=== PATIENT | male | born 1945 | race Caucasian/White ===

== ENCOUNTER 2018-08-28 05:19 | Day surgery (SDC) | payer MEDICARE, OTHER, SELFPAY ==
--- NOTE | 2018-08-28 | GASB_PTH ---
PATIENT: GABBY FLORES LOC: EN U#:[id number] AGE/SX: 73/M ROOM: RE08/28/[address]: Dr. Reyes Whittington MD : 1945 BED: DIS: 08/28/2018 SPEC #: [id number] RECD: 08/28/18 10:50 STATUS: MAILE MADDIE #: [id number] KAILEY: 08/28/18 00:[address]: Reyes Whittington DEPT: SURGICAL PATHOLOGY RECD BY: Regan Colon ENTERED: 08/28/18 10:50 SP TYPE: Gastric Bx OTHR DR: Dr. Kevin Sutton MD Tissues: A - Gastric mucous membrane B - Esophageal mucous membrane C - Esophageal mucous membrane Procedures: Surgery Specimen Level IV HEADER OPERATION: [place] [place] DIAGNOSIS: Reflux, screening TISSUE SUBMITTED: A - Antral biopsy for pathology, B - Distal esophageal biopsy, C - Mid esophageal biopsy MICROSCOPIC DIAGNOSIS A. Antral biopsy: Mild gastritis. B. Distal esophageal biopsy: A fragment of squamous epithelium with minimal chronic inflammation. C. Mid esophageal biopsy: A fragment of squamous epithelium with minimal congestion and chronic inflammation. SJ:jigar 08/29/18 COMMENT A. The results of immunohistochemistry for Helicobacter pylori will be reported separately ([id number]). Correlation with clinical, endoscopic findings and appropriate follow up are necessary. MICROSCOPIC DESCRIPTION Slides are reviewed. A. The specimen shows fragments of gastric mucosa with chronic inflammatory cell infiltrates in the lamina propria consisting of lymphocytes and plasma cells, consistent with mild chronic gastritis. GROSS DESCRIPTION A - Received in fixative is one container labeled with the patient's name and designated antral biopsy. The specimen consists of one irregular fragment of light sanz soft tissue that measures 0.3 x 0.2 x 0.1 cm. The specimen is totally submitted in one cassette. B - Received in fixative is one container labeled with the patient's name and designated distal esophageal biopsy. The specimen consists of one irregular fragment of light sanz soft tissue that measures 0.4 x 0.3 x 0.1 cm. The specimen is totally submitted in one cassette. C - Received in fixative is one container labeled with the patient's name and designated mid esophageal biopsy. The specimen consists of one irregular fragment of light sanz soft tissue that measures 0.4 x 0.2 x 0.1 cm. The specimen is totally submitted in one cassette. / SJ:rg 08/28/18 TC: CPT: 88300 x3
--- NOTE | 2018-08-28 | IMM_PTH ---
PATIENT: GABBY FLORES LOC: EN U#:[id number] AGE/SX: 73/M ROOM: RE08/28/[address]: Dr. Reyes Whittington MD : 1945 BED: DIS: 08/28/2018 SPEC #: [id number] RECD: 08/29/18 10:39 STATUS: MAILE REQ #: [id number] KAILEY: 08/28/18 00:[address]: Reyes Whittington DEPT: IMMUNOHISTOCHEMISTRY RECD BY: Chelsie Child ENTERED: 08/29/18 10:39 SP TYPE: IMMUNO OTHR DR: Dr. Kevin Sutton MD Tissues: A - Stomach, NOS Procedures: H Pylori (initial) PHYSICIAN & INSTITUTION [place] [id number] SPECIMEN INFORMATION: Tissue Source: A - Antral biopsy Clinical Info: Reflux, screening Specimen Number: [id number] CPT code: 82475 METHODOLOGY: Deparaffinized sections of prefer/formalin-fixed tissue or PAP/DQ stained slides are incubated with monoclonal/polyclonal antibodies/oligonucleotide probes. Localization is made via biotin free immunoperoxidase method. Appropriate controls are performed and reacted as expected. Results on target cell population are indicated in the following table: RESULTS: ANTIBODY / CLONE RESULT Block A H Pylori (polyclonal) negative These tests were developed and their performance characteristics determined by [facility]. They may not have been cleared or approved by the U.S. Food and Drug Administration. The FDA has determined that such clearance or approval is not necessary. INTERPRETATION: A. Antral biopsy: Negative for Helicobacter pylori organisms. SJ:jigar 08/29/18
[2018-08-28 05:56] VITALS: BP 137/79; PULSE 75; RESP 22; TEMP 36.9; O2SAT 100; BMI 23.3
--- NOTE | 2018-08-28 06:00 | PCM.HP.BLA ---
History and Physical Date of Admission: 08/28/18 HISTORY AND PHYSICAL ? Jd White 1945 ? REFERRING PHYSICIAN: ??Kevin Sutton MD ? CHIEF COMPLAINT: ??colon/EGD consult ? HPI: The patient is a 73 year old male due for screening colonoscopy, states last was in 2006. ?Jd notes no history of colon complaints. ?Specifically he denies any change in bowel habits, weight changes, blood in stools, black tarry stools or abdominal pain. ?He denies a family history of colon cancer. ?Patient notes a long-standing history of acid reflux for which he is maintained on a PPI. ?He notes he had EGD at the time of his last colonoscopy and would like to have this performed again since he still has symptomatic reflux issues. ? The patient is being seen by me today at the request of Dr. Sutton?for my opinion and advice regarding screening colonoscopy and EGD. ?Patient's past medical history is significant for coronary artery disease, idiopathic pulmonary fibrosis, chronic hypoxemic respiratory failure, chronic kidney disease, monoclonal gammopathy, osteoporosis. ?He has a LAD drug-eluting stent and is maintained on Plavix and aspirin, follows with Dr. Reddy. ?Most recent cardiology note from 07/08/18 is reviewed, per Dr. Reddy: ? There is no contraindication to colonoscopy from the cardiac point of?view, but?attention to respiratory status will be essential. ? Patient follows with Dr. Miguel in pulmonology and goes to [place] for pulmonary rehabilitation. ?He follows with Dr. Sutton for his chronic medical conditions. ?Patient wishes to have his endoscopy completed locally at [facility]. ?He denies any problems with sedation in the past. ? ? PAST MEDICAL HISTORY PAST MEDICAL HISTORY Diagnosis Date ? Back pain ? ? lower lumbar pain ? Concussion 02/2011 & 09/2011 ? Gammopathy, monoclonal ? ? small M spike in March 2015 by nephrology ? GERD (gastroesophageal reflux disease) ? ? HTN (hypertension) ? ? Hyperglycemia ? ? IPF (idiopathic pulmonary fibrosis) (HCC) ? ? diagnosed December 2013 ? Renal insufficiency ? ? ? PAST SURGICAL HISTORY PAST SURGICAL HISTORY Procedure Laterality Date ? INGUINAL HERNIA REPAIR HX Right ? ? LUNG BIOPSY HX ? 03/2014 ? PAST SURGICAL HISTORY OF ? ? cardiac stent x 1 ? ? CURRENT MEDICATIONS ? Current Outpatient Prescriptions: clopidogrel (PLAVIX) 75 mg tablet 75 mg. cholecalciferol (VITAMIN D3) 1,000 unit tab tablet VITAMIN D (CHOLECALCIFEROL) 1000 UNIT TABS pirfenidone (ESBRIET) 267 mg capsule ESBRIET 267 MG CAPS Cholecalciferol, Vitamin D3, (VITAMIN D-3) 2,000 unit cap Take one(1) tablet daily. Calcium Citrate-Vitamin D3 630-400 mg-unit Take 1 tablet by mouth once daily. levothyroxine (SYNTHROID) 25 mcg tablet Take 1 tablet by mouth once daily. Take on empty stomach. For thyroid. pantoprazole DR (PROTONIX) 40 mg tablet Take 1 tablet by mouth once daily. pravastatin (PRAVACHOL) 20 mg tablet Take 1 tablet by mouth daily at bedtime. amLODIPine (NORVASC) 5 mg tablet Take 1 tablet by mouth once daily. aspirin, enteric coated (ECOTRIN LOW STRENGTH) 81 mg EC tablet Take 1 tablet by mouth once daily. pirfenidone (ESBRIET) 267 mg capsule Take three (3) capsules by mouth three (3) times daily. ? No current facility-administered medications for this visit. ? ALLERGIES: Patient has no known allergies. ? PERSONAL HISTORY: SOCIAL HISTORY Social History ??Marital status: Single ?Spouse name: ?Years of education: ?Number of children: 0 ? Social History Main Topics ??Smoking status: Never Smoker ?Smokeless tobacco: Never Used ?Alcohol use: Yes ?6.0 - 16.5 oz/week ?Cans of Beer (12oz): 2, Mixed Drinks: 2 - 3 per week ?Comment: ocas ??Drug use: No ?Sexual activity: No ? FAMILY HISTORY: FAMILY HISTORY FAMILY HISTORY Problem Relation Age of Onset ? Diabetes Mother ? ? Hypertension Mother ? ? Heart Mother ?heart failure ? other (pulmonary fibrosis) Mother ?sister as well ? Hypertension Father ? ? Seizures Father ? ? COPD Father ? ? other (pulmonary fibosis) Sister ?lung disease,lung transplant ? Heart Brother ?[place], s/p stent ? other (Lung Disease) Brother ? ? REVIEW OF SYMPTOMS: ??The review of systems data was entered by the nurse and reviewed by me ? Nursing Notes: Elham Cervantes LPN ?07/14/2018 11:08 AM ?Signed REVIEW OF SYSTEMS: ?General:???The patient denies fatigue, denies weight loss, denies weight gain, denies feeling hot, and denies feelings of cold. ?Eyes: ?The patient denies glaucoma, denies eye injury/surgery, wears glasses or contacts. ?Ear/Nose/Throat: ?The patient denies allergies, denies hayfever, denies ear infections, and denies bloody noses. ?Cardiovascular: ?The patient denies chest pain, denies heart disease, NOTES high blood pressure,NOTES cardiac stent, denies prior heart attack, denies irregular heart beat, NOTES high cholesterol, ?denies poor circulation, denies heart failure, other cardiac issues, denies claudication, denies cold feet, denies peripheral arterial stent. ?Respiratory: ?The patient denies tuberculosis, denies pneumonia, denies frequent cough, denies pulmonary embolism, NOTES shortness of breath, and denies coughing up blood. ?Gastrointestinal: ?The patient denies difficulty swallowing, NOTES acid reflux, denies ulcers, denies vomiting, denies jaundice/hepatitis, denies gallbladder problems, denies black or tarry stools, denies hemorrhoids, denies bleeding from rectum, denies diverticulitis, denies constipation, denies diarrhea, denies loss of stool control, and denies hernias. ?Kidney/Bladder: ?The patient denies kidney stones, denies urine infections, and denies bloody urine. ?Skin: ?The patient denies a history of skin cancer, denies bleeding/changing moles, and denies a history of skin rash. ?Neurologic: ?The patient denies a history of epilepsy/convulsions, denies headaches, denies head/spinal injuries, and denies stroke/TIA. ?Psychiatric: ?The patient denies psychiatric medications, denies depression, and denies voices, denies substance abuse. ?Endocrine: ?The patient NOTES thyroid disorders, denies diabetes, and denies hormonal problems. ?Hematologic: ?The patient denies a history of bruising, denies bleeding, and denies anemia, denies blood clots. ?Infections: ?The patient NOTES a history of measles and mumps, denies rheumatic fever, and denies sexually transmitted diseases. ?Musculoskeletal: ?The patient denies back pain/injury, NOTES back problems, NOTES sciatica, denies knee/foot trouble, denies arthritis, or denies gout. ? ? When was patient's last Mammogram screening? N/A ? ?Last Colonoscopy: ?2006 ? Elham Cervantes LPN? I have confirmed and edited as necessary, the PFSH and ROS obtained by others. ? ? PHYSICAL EXAMINATION: ? General: ?The patient is 73 year old male, well nourished, well hydrated in no acute distress. ?The patient is oriented to time, place, and person. ? VITALS: Blood pressure 134/68, pulse 84, weight 80.7 kg (178 lb).?Body mass index is 23.97 kg/m?.? ? HEENT: ?Normal cephalic, ataumatic, pupils are equally round, sclera are anicteric, mucous membranes are moist, oropharynx is clear. ?Neck has no masses, asymmetry or lymphadenopathy. ? Respiratory: ?Clear to auscultation and percussion. ?Normal respiratory excursion and pattern. ? Cardiac: ?Examination is regular rate and rhythm. ?Normal S1/S2. ?+ANGELITA ? Abdominal exam: ?Soft, nontender, ?with no palpable masses. ?No hepatosplenomegaly. ?No palpable hernias. ? Rectal exam: exam deferred ? Extremities: ?no clubbing, cyanosis or edema. ?No adenopathy. ? Other: ? LABORATORY VALUES: As Noted ? RADIOLOGIC STUDIES: ?As Noted ? Assessment ? IMPRESSION: encounter for screening colonoscopy. ?Acid reflux-would plan for EGD in addition to colonoscopy. ?Idiopathic pulmonary fibrosis, on supplemental oxygen-will message Dr. Miguel to ensure no pulmonary concerns for elective endoscopy ? PLAN: ?Pending pulmonology clearance, would plan for EGD and colonoscopy to be performed under Monitored Anesthetic Care in hospital setting. ?We discussed the risks and benefits of the planned endoscopy. ?I have informed the patient that complications can occur including failure to complete the endoscopy and perforation. ?The patient had the opportunity to ask questions concerning the planned endoscopy. ?My staff has also explained the procedure to the patient in understandable terms and has given the patient printed material concerning the procedure. ?The patient freely consents to surgery. ? I plan to use golytely bowel preparation for endoscopy. ?Reviewed importance of good hydration before, during and after bowel preparation. Consider fluid bolus day of endoscopy due to history of elevated creatinine-will defer to Dr. Whittington ? Patient instructed to REMAIN ON his anticoagulation for the procedure ? The patient has medical comorbidities for which I plan to perform the procedure under monitored anesthetic care.??Patient is requesting to have procedure done locally at [facility] ? Diagnoses: (Z12.11) Encounter for screening for malignant neoplasm of colon ?(primary encounter diagnosis) (K21.9) Gastroesophageal reflux disease, esophagitis presence not specified (I25.10) Coronary artery disease involving muscogee coronary artery of muscogee heart without angina pectoris (J84.112) IPF (idiopathic pulmonary fibrosis) (HCC) (J96.11) Chronic hypoxemic respiratory failure (HCC) ? My findings have been communicated to Dr. Sutton?via shared medical record. ?This note will be forwarded to Dr. Kevin Sutton MD. ?? Return to Clinic: The patient is instructed to follow-up with me 1 week post operatively. ? Patient verbalized understanding of all above and agreed with the plan ? Digna Childs PA-C
[2018-08-28 07:11] VITALS: BP 137/79; BP 142/75; PULSE 63; RESP 16; TEMP 36.5; O2SAT 99
--- NOTE | 2018-08-28 07:14 | OP.ENDO_ITS ---
Patient Name: Jd White Procedure Date: 08/28/2018 6:25 AM Date of : 1945 Age: 73 Procedure: Upper GI endoscopy Indications: Follow-up of gastro-esophageal reflux disease Providers: Reyes Whittington MD Referring MD: Reyes Whittington MD Medicines: Monitored Anesthesia Care Patient Profile: This is a 73 year old male. Refer to note in patient chart for documentation of history and physical. Complications: No immediate complications. Procedure: Pre-Anesthesia Assessment: - Prior to the procedure, a History and Physical was performed, and patient medications and allergies were reviewed. The patient is competent. The risks and benefits of the procedure and the sedation options and risks were discussed with the patient. All questions were answered and informed consent was obtained. Patient identification and proposed procedure were verified by the physician, the nurse and the anesthesiologist in the procedure room. Mental Status Examination: alert and oriented. Airway Examination: normal oropharyngeal airway and neck mobility. Respiratory Examination: clear to auscultation. CV Examination: normal. Prophylactic Antibiotics: The patient does not require prophylactic antibiotics. Prior Anticoagulants: The patient has taken no previous anticoagulant or antiplatelet agents. ASA Grade Assessment: III - A patient with severe systemic disease. After reviewing the risks and benefits, the patient was deemed in satisfactory condition to undergo the procedure. The anesthesia plan was to use monitored anesthesia care (MAC). Immediately prior to administration of medications, the patient was re-assessed for adequacy to receive sedatives. The heart rate, respiratory rate, oxygen saturations, blood pressure, adequacy of pulmonary ventilation, and response to care were monitored throughout the procedure. The physical status of the patient was re-assessed after the procedure. After obtaining informed consent, the endoscope was passed under direct vision. Throughout the procedure, the patient's blood pressure, pulse, and oxygen saturations were monitored continuously. The gastroscope was introduced through the mouth, and advanced to the jejunum. The upper GI endoscopy was accomplished without difficulty. The patient tolerated the procedure well. Scope In: 6:38:00 AM Scope Out: 6:43:00 AM Total Procedure Duration Time 0 hours 5 minutes 0 seconds Findings: The examined jejunum was normal. The examined duodenum was normal. Localized mild inflammation characterized by erosions and erythema was found in the gastric antrum. Biopsies were taken with a cold forceps for histology. Biopsies were taken with a cold forceps for Helicobacter pylori testing using PyloriTek test. Biopsies were taken with a cold forceps for histology. The lower third of the esophagus was normal. Biopsies were taken with a cold forceps for histology. Mild inflammation characterized by erythema was found in the middle third of the esophagus. Biopsies were taken with a cold forceps for histology. Impression: - Normal examined jejunum. - Normal examined duodenum. - Gastritis. Biopsied. - Normal lower third of esophagus. Biopsied. - Esophageal mucosal changes were present, including erythema. Findings are suggestive of inflammation. Biopsied. Recommendation: - Return to physician grants and contracts assistant in 1 week. - Continue present medications. Procedure Code(s): --- Professional --- 08691, Esophagogastroduodenoscopy, flexible, transoral; with biopsy, single or multiple CPT copyright 2017 [employer]. All rights reserved. The codes documented in this report are preliminary and upon progressive care unit registered nurse review may be revised to meet current compliance requirements. Reyes Whittington MD 08/28/2018 7:13:52 AM This report has been signed electronically. Number of Addenda: 0 Note Initiated On: 08/28/2018 6:25 AM
--- NOTE | 2018-08-28 07:15 | OP.ENDO_ITS ---
Patient Name: Jd White Procedure Date: 08/28/2018 6:45 AM Date of : 1945 Age: 73 Procedure: Colonoscopy Indications: Screening for colorectal malignant neoplasm Providers: Reyes Whittington MD Referring MD: Reyes Whittington MD Medicines: Monitored Anesthesia Care Patient Profile: This is a 73 year old male. Refer to note in patient chart for documentation of history and physical. Last Colonoscopy: 10 years ago. Complications: No immediate complications. Procedure: Pre-Anesthesia Assessment: - Prior to the procedure, a History and Physical was performed, and patient medications and allergies were reviewed. The patient is competent. The risks and benefits of the procedure and the sedation options and risks were discussed with the patient. All questions were answered and informed consent was obtained. Patient identification and proposed procedure were verified by the physician, the nurse and the anesthesiologist in the procedure room. Mental Status Examination: alert and oriented. Airway Examination: normal oropharyngeal airway and neck mobility. Respiratory Examination: clear to auscultation. CV Examination: normal. Prophylactic Antibiotics: The patient does not require prophylactic antibiotics. Prior Anticoagulants: The patient has taken no previous anticoagulant or antiplatelet agents. ASA Grade Assessment: III - A patient with severe systemic disease. After reviewing the risks and benefits, the patient was deemed in satisfactory condition to undergo the procedure. The anesthesia plan was to use monitored anesthesia care (MAC). Immediately prior to administration of medications, the patient was re-assessed for adequacy to receive sedatives. The heart rate, respiratory rate, oxygen saturations, blood pressure, adequacy of pulmonary ventilation, and response to care were monitored throughout the procedure. The physical status of the patient was re-assessed after the procedure. After I obtained informed consent, the scope was passed under direct vision. Throughout the procedure, the patient's blood pressure, pulse, and oxygen saturations were monitored continuously. The pediatric colonoscope was introduced through the anus and advanced to the cecum, identified by the appendiceal orifice, ileocecal valve and palpation. Scope In: 6:46:41 AM Scope Withdrawal Time 0 hours 10 minutes 11 seconds Scope Out: 7:05:31 AM Total Procedure Duration Time 0 hours 18 minutes 50 seconds Findings: The perianal and digital rectal examinations were normal. The entire examined colon appeared normal on direct and retroflexion views. Impression: - The entire examined colon is normal on direct and retroflexion views. - No specimens collected. Recommendation: - Discharge patient to home. - Resume previous diet. - Continue present medications. - Repeat colonoscopy in 10 years for screening purposes. - Return to physician product safety technical assistant in 1 week. Procedure Code(s): --- Professional --- 90249, Colonoscopy, flexible; diagnostic, including collection of specimen(s) by brushing or washing, when performed (separate procedure) CPT copyright 2017 [employer]. All rights reserved. The codes documented in this report are preliminary and upon drywall taper review may be revised to meet current compliance requirements. Reyes Whittington MD 08/28/2018 7:15:31 AM This report has been signed electronically. Number of Addenda: 0 Note Initiated On: 08/28/2018 6:45 AM
[2018-08-28 07:16] VITALS: BP 136/78; BP 137/79; PULSE 59; RESP 16; O2SAT 99
[2018-08-28 07:21] VITALS: BP 131/74; BP 137/79; PULSE 66; RESP 16; O2SAT 100
[2018-08-28 07:26] VITALS: BP 137/79; BP 142/70; PULSE 62; RESP 16; TEMP 37.1; O2SAT 100
[2018-08-28 07:39] VITALS: BP 137/79
--- OUTSIDE RECORDS SUMMARY | 2018-10-23 06:00 | XMS RPT_ITS | Clinical Summary ---
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 Hyperglycemia 49842926 Active Nancy Solis Hyperglycemia (SNOMED 0/24 0/[address]) Essential 43620579 Active Nancy Solis Essential hypertension (SNOMED 0/24 0/[address]) GERD 619172010 Active Nancy Solis Gastroesophageal (SNOMED 0/24 0/[address]) Monoclonal 500336017 Active Nancy Solis Monoclonal gammopathy (SNOMED 0/24 0/[address]) (clinical) Medications Medication Instructions Start Stop Generic Name NDC Provider Date Date PLAVIX 75 MG Take 75 mg by / CLOPIDOGREL [id number] Nancy Solis TABS mouth once 24 BISULFATE [place] daily PLAVIX 75 MG Take 75 mg by CLOPIDOGREL [id number] Perry Nichole TABS mouth once 24 /24 BISULFATE [place] daily PANTOPRAZOLE One tablet by / PANTOPRAZOLE [id number] Nancy Solis SODIUM 40 MG mouth daily 24 SODIUM [place] TBEC AMLODIPINE One tablet by / AMLODIPINE [id number] Nancy Solis BESYLATE 5 MG mouth daily 24 BESYLATE [place] TABS PRAVASTATIN One tablet by / PRAVASTATIN SODIUM [id number] Nancy Solis SODIUM 20 MG mouth daily at 24 [place] TABS bedtime ASPIRIN 81 MG One tablet by / ASPIRIN [id number] Nancy M TABS mouth daily 24 [place] VITAMIN D One tablet by / CHOLECALCIFEROL [id number] Nancy Solis (CHOLECALCIFERO mouth daily 24 [place] L) 1000 UNIT TABS ESBRIET 267 MG Take 3 capsules / PIRFENIDONE [id number] Nancy Solis CAPS by mouth three 24 [place] times daily Medications Administered No information available. Allergies, Adverse Reactions, Alerts Observed No Known Drug Allergies at Results Date Name Value Unit Range Flag Description Office Visit: Update H&P Colonoscopy/ EGD MEDS REVIEW Done Documentation of current medications (procedure) [place] No Fall risk assessment SMOK STATUS Never smoker Tobacco use [facility] Plan of Care Type Date Detail Appointment 11:00 AM Digna Cruz PA-C, [address] [facility], [address], [address], Appointment 10:00 AM Perry Sargent MD, [address] [facility], [place] [address], [place], [address], Pending order EGD; diagnostic Pending order Colonoscopy Pending order EGD; diagnostic Pending order Colonoscopy Procedures Code Procedure Name Date Entry Date CPT-06682 Colonoscopy CPT-03893 EGD; diagnostic Vital Signs Date Name Value Unit Description BMI (Body Mass Index) 23.11 kg/m2 Body Mass Index [Ratio] Body Temperature 97.7 [degF] temperature E&M Body Temperature 36.50 Darling temperature in centigrade E&M BP Diastolic 85 mm[Hg] blood pressure, diastolic - 8462-4 BP Systolic 143 mm[Hg] blood pressure, systolic - 8480-6 Heart Rate 67 /min pulse rate E&M - 8867-4 Height 74 [in_us] height E&M - 8302-2 Height 187.96 cm height in centimeters E&M Respiratory Rate 18 /min respiratory rate E&M - 9279-1 Weight Measured 180 [lb_av] weight E&M - 3141-9 Weight Measured 81.65 kg weight in kilograms E&M
--- OUTSIDE RECORDS SUMMARY | 2018-10-23 06:00 | XMS RPT_ITS | Clinical Summary ---
:[address] 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 Hyperglycemia 07680439 Active Nancy Solis Hyperglycemia (SNOMED 0/24 0/[address]) Essential 31160165 Active Nancy Solis Essential hypertension (SNOMED 0/24 0/[address]) GERD 213394427 Active Nancy Solis Gastroesophageal (SNOMED 0/24 0/[address]) Monoclonal 482864579 Active Nancy Solis Monoclonal gammopathy (SNOMED 0/24 0/[address]) (clinical) Medications Medication Instructions Start Stop Generic Name NDC Provider Date Date PLAVIX 75 MG Take 75 mg by / CLOPIDOGREL [id number] Nancy Solis TABS mouth once 24 BISULFATE [place] daily PLAVIX 75 MG Take 75 mg by CLOPIDOGREL [id number] Perry Nichole TABS mouth once 24 /24 BISULFATE [place] daily PANTOPRAZOLE One tablet by / PANTOPRAZOLE 50632962106 Nancy Solis SODIUM 40 MG mouth daily 24 SODIUM [place] TBEC AMLODIPINE One tablet by / AMLODIPINE 64209868303 Nancy Solis BESYLATE 5 MG mouth daily 24 BESYLATE [place] TABS PRAVASTATIN One tablet by PRAVASTATIN SODIUM 14682113457 Nancy Solis SODIUM 20 MG mouth daily at 24 [place] TABS bedtime ASPIRIN 81 MG One tablet by / ASPIRIN 28100363650 Nancy M TABS mouth daily 24 [place] VITAMIN D One tablet by / CHOLECALCIFEROL [id number] Nancy Solis (CHOLECALCIFERO mouth daily 24 [place] L) 1000 UNIT TABS ESBRIET 267 MG Take 3 capsules / PIRFENIDONE [id number] Nancy Solis CAPS by mouth three 24 [place] times daily Medications Administered No information available. Allergies, Adverse Reactions, Alerts Observed no known allergies at Results Date Name Value Unit Range Flag Description Office Visit: EGD/ c-scope MEDS REVIEW Done Documentation of current medications (procedure) [place] No Fall risk assessment SMOK STATUS Never smoker Tobacco use [facility] Plan of Care Type Date Detail Pending order EGD; diagnostic Pending order Colonoscopy Procedures Code Procedure Name Date Entry Date CPT-53790 Colonoscopy CPT-44522 EGD; diagnostic Vital Signs Date Name Value Unit Description BMI (Body Mass Index) 23.20 kg/m2 Body Mass Index [Ratio] Body Temperature 97.5 [degF] temperature E&M BP Diastolic 73 mm[Hg] blood pressure, diastolic - 8462-4 BP Systolic 161 mm[Hg] blood pressure, systolic - 8480-6 Heart Rate 71 /min pulse rate E&M - 8867-4 Height 74 [in_us] height E&M - 8302-2 Respiratory Rate 22 /min respiratory rate E&M - 9279-1 Weight Measured 180.7 [lb_av] weight E&M - 3141-9
--- OUTSIDE RECORDS SUMMARY | 2018-10-23 06:00 | XMS RPT_ITS | Clinical Summary ---
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 Hyperglycemia 39274904 Active Nancy Solis Hyperglycemia (SNOMED 0/24 0/[address]) Essential 21722739 Active Nancy Solis Essential hypertension (SNOMED 0/24 0/[address]) GERD 413167122 Active Nancy Solis Gastroesophageal (SNOMED 0/24 0/[address]) Monoclonal 183250776 Active Nancy Solis Monoclonal gammopathy (SNOMED 0/24 0/[address]) (clinical) Medications Medication Instructions Start Stop Generic Name ND Provider Date Date PANTOPRAZOLE One tablet by / PANTOPRAZOLE [id number] Nancy Solis SODIUM 40 MG mouth daily 24 SODIUM [place] TBEC AMLODIPINE One tablet by / AMLODIPINE 67725579939 Nancy Solis BESYLATE 5 MG mouth daily 24 BESYLATE [place] TABS PLAVIX 75 MG Take 75 mg by / CLOPIDOGREL 28037117058 Nancy Solis TABS mouth once 24 BISULFATE [place] daily PRAVASTATIN One tablet by / PRAVASTATIN SODIUM 11162194859 Nancy Solis SODIUM 20 MG mouth daily at 24 [place] TABS bedtime ASPIRIN 81 MG One tablet by / ASPIRIN 92623005558 Nancy Solis TABS mouth daily 24 [place] VITAMIN D One tablet by / CHOLECALCIFEROL 09883967246 Nancy Solis (CHOLECALCIFERO mouth daily 24 [place] L) 1000 UNIT TABS ESBRIET 267 MG Take 3 capsules / PIRFENIDONE 09888741109 Nancy Solis CAPS by mouth three 24 [place] times daily Medications Administered No information available. Allergies, Adverse Reactions, Alerts No information available. Results No information available. Plan of Care Type Date Detail Appointment 03:10 PM Perry Sargent MD, [address] [place] [address], [address], [place], [address], Procedures No information available. Vital Signs No information available.
--- OUTSIDE RECORDS SUMMARY | 2018-10-23 06:00 | XMS RPT_ITS | Clinical Summary ---
:1945 Author Organization [facility] Address [address] [place] [address] Phone Care Team Providers Name Role Phone Perry Sargent MD Unavailable Conditions or Problems Problem Name Problem Onset Status Entry Provider Comment Standard Annotate Code Date Date Description Screening 474238773 Active Perry Nichole Screening for colon for (SNOMED 0/24 0/24 [place] malignant malignant CT) neoplasm of colon neoplasm Renal 15848808 Active Nancy Solis Renal failure insufficiency (SNOMED 0/24 0/[address]) Idiopathic 760194679 Active Nancy 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 Hyperglycemia 42423611 Active Nancy Solis Hyperglycemia (SNOMED 0/24 0/[address]) Essential 09856038 Active Nancy Solis Essential hypertension (SNOMED 0/24 0/[address]) GERD 170461996 Active Nancy Solis Gastroesophageal (SNOMED 0/24 0/[address]) Monoclonal 758137110 Active Nancy Solis Monoclonal gammopathy (SNOMED 0/24 0/[address]) (clinical) Medications Medication Instructions Start Stop Generic Name NDC Provider Date Date PLAVIX 75 MG Take 75 mg by / CLOPIDOGREL [id number] Nancy Solis TABS mouth once 24 BISULFATE [place] daily PLAVIX 75 MG Take 75 mg by CLOPIDOGREL 57210861805 Perry Nichole TABS mouth once 24 /24 BISULFATE [place] daily PANTOPRAZOLE One tablet by / PANTOPRAZOLE 14389663828 Nancy Solis SODIUM 40 MG mouth daily 24 SODIUM [place] TBEC AMLODIPINE One tablet by / AMLODIPINE 24312939455 Nancy Solis BESYLATE 5 MG mouth daily 24 BESYLATE [place] TABS PRAVASTATIN One tablet by / PRAVASTATIN SODIUM 52799944406 Nancy Solis SODIUM 20 MG mouth daily at 24 [place] TABS bedtime ASPIRIN 81 MG One tablet by / ASPIRIN 27269568365 Nancy M TABS mouth daily 24 [place] VITAMIN D One tablet by / CHOLECALCIFEROL 86271805970 Nancy Solis (CHOLECALCIFERO mouth daily 24 [place] L) 1000 UNIT TABS ESBRIET 267 MG Take 3 capsules / PIRFENIDONE 56890426267 Nancy Solis CAPS by mouth three 24 [place] times daily Medications Administered No information available. Allergies, Adverse Reactions, Alerts Observed no known allergies at Results Date Name Value Unit Range Flag Description Office Visit: EGD/ c-scope MEDS REVIEW Done Documentation of current medications (procedure) [place] No Fall risk assessment SMOK STATUS Never smoker Tobacco use [facility] Plan of Care Type Date Detail Appointment 03:10 PM Perry Sargent MD, [address] [place] [address], [address], [place], [address], Pending order EGD; diagnostic Pending order Colonoscopy Procedures Code Procedure Name Date Entry Date CPT-07589 Colonoscopy CPT-22270 EGD; diagnostic Vital Signs Date Name Value [...]
--- OUTSIDE RECORDS SUMMARY | 2018-10-23 06:00 | XMS RPT_ITS | Clinical Summary ---
:1945 Author Organization [facility] Address [address] [place] [address] Phone Care Team Providers Name Role Phone Digna Cruz PA-C Conditions or Problems Problem Name Problem Onset Status Entry Provider Comment Standard Annotate Code Date Date Description Screening [id number] Active Perry Nichole Screening for colon for (SNOMED 0/24 0/24 [place] malignant malignant CT) neoplasm of colon neoplasm Renal 10555362 Active Nancy Solis Renal failure insufficiency (SNOMED 0/24 0/[address]) Idiopathic 642106007 Active Nancy 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 Hyperglycemia 62442434 Active Nancy Solis Hyperglycemia (SNOMED 0/24 0/[address]) Essential 94854472 Active Nancy Solis Essential hypertension (SNOMED 0/24 0/[address]) GERD 992850199 Active Nancy Solis Gastroesophageal (SNOMED 0/24 0/[address]) Monoclonal 981187885 Active Nancy Solis Monoclonal gammopathy (SNOMED 0/24 0/[address]) (clinical) Medications Medication Instructions Start Stop Generic Name NDC Provider Date Date PLAVIX 75 MG Take 75 mg by / CLOPIDOGREL [id number] Nancy Solis TABS mouth once 24 BISULFATE [place] daily PLAVIX 75 MG Take 75 mg by CLOPIDOGREL [id number] Perry Nichole TABS mouth once 24 /24 BISULFATE [place] daily PANTOPRAZOLE One tablet by / PANTOPRAZOLE 47076374469 Nancy Solis SODIUM 40 MG mouth daily 24 SODIUM [place] TBEC AMLODIPINE One tablet by / AMLODIPINE 90098716227 Nancy Solis BESYLATE 5 MG mouth daily 24 BESYLATE [place] TABS PRAVASTATIN One tablet by / PRAVASTATIN SODIUM 54240276103 Nancy Solis SODIUM 20 MG mouth daily at 24 [place] TABS bedtime ASPIRIN 81 MG One tablet by / ASPIRIN 26485844974 Nancy M TABS mouth daily 24 [place] VITAMIN D One tablet by / CHOLECALCIFEROL 09900097556 Nancy Solis (CHOLECALCIFERO mouth daily 24 [place] L) 1000 UNIT TABS ESBRIET 267 MG Take 3 capsules / PIRFENIDONE 08436580426 Nancy Solis CAPS by mouth three 24 [place] times daily Medications Administered No information available. Allergies, Adverse Reactions, Alerts Observed No Known Drug Allergies at Results Date Name Value Unit Range Flag Description Office Visit: Update H&P Colonoscopy/ EGD MEDS REVIEW Done Documentation of current medications (procedure) [place] No Fall risk assessment SMOK STATUS Never smoker Tobacco smoking status [facility] Plan of Care Type Date Detail Appointment 10:00 AM Perry Sargent MD, [address] [place] [address], [address], [place], [address], Pending order EGD; diagnostic Pending order Colonoscopy Pending order EGD; diagnostic Pending order Colonoscopy Procedures Code Procedure Name Date Entry Date CPT-92685 Colonoscopy CPT-51614 EGD; diagnostic Vital Signs Date Name Value [...]
--- OUTSIDE RECORDS SUMMARY | 2018-10-23 06:01 | XMS RPT_ITS ---
:1945 Author Organization [facility] Care Team Providers Name Role Phone Isiah Whittington Attending Unavailable Isiah Whittington Referring Unavailable Kevin Mai Primary Care Unavailable ANTON ALEJANDRO Attending Unavailable ANTON ALEJANDRO Referring Unavailable NBA, KIRTI Referring Unavailable NBA, KIRTI Referring Unavailable NBA, KIRTI Referring Unavailable NBA, KIRTI Referring Unavailable NBA, KIRTI Referring Unavailable NBA, KIRTI Referring Unavailable NBA, KIRTI Referring Unavailable NBA, KIRTI Referring Unavailable NBA, KIRTI Referring Unavailable NBA, KIRTI Referring Unavailable NBA, KIRTI Referring Unavailable NBA, KIRTI Referring Unavailable NBA, KIRTI Referring Unavailable NBA, KIRTI Referring Unavailable BNA, KIRTI Referring Unavailable NBA, KIRTI Referring Unavailable NBA, KIRTI Referring Unavailable NBA, KIRTI Referring Unavailable BLAIR, ARCELIA ALBERTO Referring Unavailable BLAIR, ARCELIA ALBERTO Referring Unavailable BLAIR, ARCELIA ALBERTO Referring Unavailable BLAIR, ARCELIA ALBERTO Referring Unavailable BLAIR, ARCELIA ALBERTO Referring Unavailable BLAIR, ARCELIA ALBERTO Referring Unavailable BLAIR, ARCELIA ALBERTO Referring Unavailable BLAIR, ARCELIA ALBERTO Referring Unavailable BLAIR, ARCELIA ALBERTO Referring Unavailable NGUYEN FINE Referring Unavailable BLAIR, ARCELIA ALBERTO Referring Unavailable BLAIR, ARCELIA ALBERTO Referring Unavailable BLAIR, ARCELIA ALBERTO Referring Unavailable BLAIR, ARCELIA ALBERTO Referring Unavailable BLAIR, ARCELIA ALBERTO Referring Unavailable BLAIR, ARCELIA ALBERTO Referring Unavailable BLAIR, ARCELIA ALBERTO Referring Unavailable BLAIR, ARCELIA ALBERTO Referring Unavailable BLAIR, ARCELIA ALBERTO Referring Unavailable BLAIR, ARCELIA ALBERTO Referring Unavailable BLAIR, ARCELIA ALBERTO Referring Unavailable BLAIR, ARCELIA ALBERTO Referring Unavailable BLAIR, ARCELIA ALBERTO Referring Unavailable BLAIR, ARCELIA ALBEROT Referring Unavailable BLAIR, ARCELIA ALBERTO Referring Unavailable BLAIR, ARCELIA ALBERTO Referring Unavailable BLAIR, ARCELIA ALBERTO Referring Unavailable BLAIR, ARCELIA ALBERTO Referring Unavailable BLAIR, ARCELIA ALBERTO Referring Unavailable BLAIR, ARCELIA ALBERTO Referring Unavailable BLAIR, ARCELIA ALBERTO Referring Unavailable BLAIR, ARCELIA ALBERTO Referring Unavailable BLAIR, ARCELIA ALBERTO Referring Unavailable BLAIR, ARCELIA ALBERTO Referring Unavailable BLAIR, ARCELIA ALBERTO Referring Unavailable BLAIR, ARCELIA ALBERTO Referring Unavailable BLAIR, ARCELIA ALBERTO Referring Unavailable BLAIR, ARCELIA ALBERTO Referring Unavailable BLAIR, ARCELIA ALBERTO Referring Unavailable BLAIR, ARCELIA ALBERTO Referring Unavailable BLAIR, ARCELIA ALBERTO Referring Unavailable BLAIR, ARCELIA DOLLY Referring Unavailable BLAIR, ARCELIA ALBERTO Referring Unavailable BLAIR, ARCELIA ALBERTO Referring Unavailable BLAIR, ARCELIA DOLLY Referring Unavailable BLAIR, ARCELIA ALBERTO Referring Unavailable BLAIR, ARCELIA ALBERTO Referring Unavailable BLAIR, ARCELIA ALBERTO Referring Unavailable BLAIR, ARCELIA ALBERTO Referring Unavailable BLAIR, ARCELIA ALBERTO Referring Unavailable BLAIR, ARCELIA DOLLY Referring Unavailable BLAIR, ARCELIA DOLLY Referring Unavailable BLAIR, ARCELIA DOLLY Referring Unavailable BLAIR, ARCELIA DOLLY Referring Unavailable BLAIR, ARCELIA DOLLY Referring Unavailable BLAIR, ARCELIA DOLLY Referring Unavailable BLAIR, ARCELIA DOLLY Referring Unavailable BLAIR, ARCELIA DOLLY Referring Unavailable BLAIR, ARCELIA DOLLY Referring Unavailable BLAIR, ARCELIA DOLLY Referring Unavailable BLAIR, ARCELIA DOLLY Referring Unavailable BLAIR, ARCELIA DOLLY Referring Unavailable KEVIN MAI Attending Unavailable KEVIN MAI Referring Unavailable KEVIN MAI Attending Unavailable SINA WAGONER (PT) Attending Unavailable KEVIN MAI Referring Unavailable KEVIN MAI Referring Unavailable TONY HER (PA-C) Attending Unavailable TONY HER (PA-C) Referring Unavailable TONY HER (PA-C) Referring Unavailable ANTON ALEJANDRO Referring Unavailable NBA, KIRTI Referring Unavailable NBA, KIRTI Referring Unavailable NBA, KIRTI Referring Unavailable NBA, KIRTI Referring Unavailable NBA, KIRTI Attending Unavailable NBA, KIRTI Referring Unavailable FILE, KRYS Han Attending Unavailable LUIS MANUEL HER Referring Unavailable FILE, KRYS A Referring Unavailable MICHELLE HERNANDEZ (OFFICE WORKER) Attending Unavailable FILE, KRYS Han Referring Unavailable SERGEI, KEVIN Guzmán Referring Unavailable SERGEI, KEVIN J Referring Unavailable SERGEI, KEVIN J Referring Unavailable MASCI, LINO Han Attending Unavailable MASCI, LINO Han Referring Unavailable SERGEI, KEVIN J Referring Unavailable NBA, KIRTI Referring Unavailable NBA, KIRTI Referring Unavailable NBA, KIRTI Referring Unavailable NBA, KIRTI Referring Unavailable NBA, KIRTI Referring Unavailable NBA, KIRTI Attending Unavailable NBA, KIRTI Referring Unavailable MICHELLE HERNANDEZ (OFFICE WORKER) Referring Unavailable ANTON ALEJANDRO Attending Unavailable ANTON ALEJANDRO Referring Unavailable FILE, KRYS Han Attending Unavailable FILE, KRYS Han Referring Unavailable DIGNA STOKES (PA) Attending Unavailable SERGEI, KEVIN J Referring Unavailable NBA, KIRTI Referring Unavailable DIGNA STOKES (PA) Attending Unavailable NBA, KIRTI Referring Unavailable NBA, KIRTI Referring Unavailable NBA, KIRTI Attending Unavailable SERGEI, KEVIN J Referring Unavailable Irma BONILLA (PA-C) Referring Unavailable ANTON ALEJANDRO Attending Unavailable ANTON ALEJANDRO Referring Unavailable Kevin Mai MD Primary Care Unavailable ANTON ALEJANDRO Attending Unavailable ANTON ALEJANDRO Referring Unavailable Kevin Mai MD Primary Care Unavailable PROBLEMS PROBLEMS DATE TYPE CONDITION / CODE ATTENDING STATUS SOURCE 11/08/2017 Active Other nonspecific NA Active [facility] abnormal finding of Clinic Main lung field / [place] R91.8(ICD-10) Repository 05/27/2015 Active Idiopathic pulmonary NA Active [facility] fibrosis / Clinic Other J84.112(ICD-10) [place] Repository 11/14/2016 Active Hyperglycemia, NA Active [facility] unspecified / Clinic Main R73.9(ICD-10) [place] Repository 01/06/2018 Active Chronic kidney NA Active [facility] disease, stage 3 Clinic Main (moderate) / [place] N18.3(ICD-10) Repository 12/27/2017 Active Hypothyroidism, NA Active [facility] unspecified / Clinic Main E03.9(ICD-10) [place] Repository 12/27/2017 Active Disorder of kidney NA Active [facility] and ureter, Clinic Main unspecified / [place] N28.9(ICD-10) Repository 12/04/2017 Active Age-related NA Active [facility] osteoporosis without Clinic Main current pathological [place] fracture / Repository M81.0(ICD-10) 12/04/2017 Active Other intermediate card tender NA Active [facility] (current) drug Clinic Main therapy / [place] Z79.899(ICD-10) Repository 12/04/2017 Active Vitamin D NA Active [facility] deficiency, Clinic Main unspecified / [place] E55.9(ICD-10) Repository 11/08/2017 Active Unknown / KIRTI ARANGO Active [facility] UNK(Unknown) Clinic Main [place] Repository 11/07/2017 Active Atherosclerotic FLAVIA, 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 Repository 08/06/2017 Active Low back pain / NA Active [facility] M54.5(ICD-10) Clinic Main [place] Repository 10/28/2017 Active Wedge compression NA Active [facility] fracture of second Clinic Main lumbar vertebra, [place] initial encounter Repository for closed fracture / S32.020A(ICD-10) 10/28/2017 Active Wedge compression NA Active [facility] fracture of Clinic Main unspecified thoracic [place] vertebra, initial Repository encounter for closed fracture / S22.000A(ICD-10) 10/04/2017 Active Chronic obstructive NA Active [facility] pulmonary disease Clinic Main with acute lower [place] respiratory Repository infection / J44.0(ICD-10) 10/04/2017 Active Acute bronchitis, NA Active [facility] unspecified / Clinic Main J20.9(ICD-10) [place] Repository 06/16/2015 Active Monoclonal NA Active [facility] gammopathy / Clinic Main D47.2(ICD-10) [place] Repository 10/01/2017 Active Deforming NA Active [facility] dorsopathy, Clinic Main unspecified / [place] M43.9(ICD-10) Repository 10/01/2017 Active Radiculopathy, NA Active [facility] lumbar region / Clinic Main M54.16(ICD-10) [place] Repository PROCEDURES PROCEDURES No Procedure Records FoundRESULTS RESULTS PROGRESS Observed: 09/16/2018 Status: COMPLETED Source: [place] 10:39 AM [facility] REPOSITORY HNO ID: [id number] Author: Angel Chavarria (Ex Phys) Service: (none) Author Type: Dryer And Washer Mechanic Type: Progress Notes Filed: 09/16/2018 10:39 AM Note Text: Patient exercised in phase 3 cardiopulmonary rehabilitation today. Patients vitals WNL. HOSP Observed: 09/16/2018 Status: COMPLETED Source: [place] 12:00 AM [facility] REPOSITORY Patient Update ([facility]) EVAN FLORES ([id number]) 1945 M Date Time Provider Department 09/16/18 ANGEL CHAVARRIA (HARDIK PHYS) [facility] During your visit today, we recorded the following information about you: Hardik Arcos Ph 09/16/2018 10:39 AM Signed Patient exercised in phase 3 cardiopulmonary rehabilitation today. Patients vitals WNL. Allergies As of Date: 09/16/2018 (No Known Allergies) Date Reviewed: 09/05/2018 Reviewed by: Katie Ptunam Ma - Fully Assessed Prescriptions as of 09/16/2018 Sig: AMLODIPINE 5 MG TABLET Take 1 tablet by mouth once d* ASPIRIN 81 MG TABLET,DELAYED * Take 1 tablet by mouth once d* CALCIUM CITRATE-VITAMIN D 630* Take 1 tablet by mouth once d* CHOLECALCIFEROL (VITAMIN D3) * VITAMIN D (CHOLECALCIFEROL) 1* CHOLECALCIFEROL (VITAMIN D3) * Take one(1) tablet daily. CLOPIDOGREL 75 MG TABLET 75 mg. LEVOTHYROXINE 25 MCG TABLET Take 1 tablet by mouth once d* NINTEDANIB 150 MG CAPSULE Take 1 capsule by mouth every* PANTOPRAZOLE 40 MG TABLET,DEL* Take 1 tablet by mouth once d* PRAVASTATIN 20 MG TABLET Take 1 tablet by mouth daily * Problem List As Of Date 09/16/2018 Noted Resolved IPF (idiopathic pulmonary fibrosis) (HCC) [J84.*INVALID FOR* CKD (chronic kidney disease) [N18.9] INVALID FOR* Hoarse voice quality [R49.0] INVALID FOR* GERD (gastroesophageal reflux disease) [K21.9] INVALID FOR* HTN (hypertension) [I10] INVALID FOR*11/07/2016 Gammopathy, 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 BPH (benign prostatic hyperplasia) [N40.0] INVALID FOR* Family history of ischemic heart disease [Z82.4*INVALID FOR* Coronary artery disease involving [place] dougherty*INVALID FOR* More... 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] INVALID FOR* Acute midline low back pain [M54.5] INVALID FOR* Chronic hypoxemic respiratory failure (HCC) [J9*INVALID FOR* Pulmonary infiltrate [R91.8] INVALID FOR*05/23/2018 Abnormal weight loss [R63.4] INVALID FOR* Encounter Status:Closed by ANGEL CHAVARRIA on 09/16/18 PROGRESS Observed: 09/11/2018 Status: COMPLETED Source: [place] 10:27 AM [facility] REPOSITORY HNO ID: [id number] Author: Angel Han (Ex Phys) Deon Service: (none) Author Type: Dryer And Washer Mechanic Type: Progress Notes Filed: 09/11/2018 10:27 AM Note Text: Patient exercised in phase 3 cardiopulmonary rehabilitation today. Patients vitals WNL. HOSP Observed: 09/11/2018 Status: COMPLETED Source: [place] 12:00 AM [facility] REPOSITORY [facility] EVAN FLORES ([id number]) 1945 M Date Time Provider Department 09/11/18 FREIDAJULIA ANGEL Han (EX PHYS) [facility] During your visit today, we recorded the following information about you: Angel Han Hardik Chavarria 09/11/2018 10:27 AM Signed Patient exercised in phase 3 cardiopulmonary rehabilitation today. Patients vitals WNL. Allergies As of Date: 09/11/2018 (No Known Allergies) Date Reviewed: 09/05/2018 Reviewed by: Katei Putnam Ma - Fully Assessed Prescriptions as of 09/11/2018 Sig: AMLODIPINE 5 MG TABLET Take 1 tablet by mouth once d* ASPIRIN 81 MG TABLET,DELAYED * Take 1 tablet by mouth once d* CALCIUM CITRATE-VITAMIN D 630* Take 1 tablet by mouth once d* CHOLECALCIFEROL (VITAMIN D3) * VITAMIN D (CHOLECALCIFEROL) 1* CHOLECALCIFEROL (VITAMIN D3) * Take one(1) tablet daily. CLOPIDOGREL 75 MG TABLET 75 mg. LEVOTHYROXINE 25 MCG TABLET Take 1 tablet by mouth once d* NINTEDANIB 150 MG CAPSULE Take 1 capsule by mouth every* PANTOPRAZOLE 40 MG TABLET,DEL* Take 1 tablet by mouth once d* PRAVASTATIN 20 MG TABLET Take 1 tablet by mouth daily * Problem List As Of Date 09/11/2018 Noted Resolved IPF (idiopathic pulmonary fibrosis) (HCC) [J84.*INVALID FOR* CKD (chronic kidney disease) [N18.9] INVALID FOR* Hoarse voice quality [R49.0] INVALID FOR* GERD (gastroesophageal reflux disease) [K21.9] INVALID FOR* HTN (hypertension) [I10] INVALID FOR*11/07/2016 Gammopathy, 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 BPH (benign prostatic hyperplasia) [N40.0] INVALID FOR* Family history of ischemic heart disease [Z82.4*INVALID FOR* Coronary artery disease involving [place] dougherty*INVALID FOR* More... 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] INVALID FOR* Acute midline low back pain [M54.5] INVALID FOR* Chronic hypoxemic respiratory failure (HCC) [J9*INVALID FOR* Pulmonary infiltrate [R91.8] INVALID FOR*05/23/2018 Abnormal weight loss [R63.4] INVALID FOR* Encounter Status:Closed by ANGEL CHAVARRIA on 09/11/18 TSH Collected: 09/10/2018 Status: F Source: [place] 12:30 PM [facility] REPOSITORY TYPE CODE TESTS RESULT OUT OF RANGE REFERENCE UNITS LAB TSH 0.400-5.500 uU/mL TSH 4.320 Performed By: #### TSH #### [facility] [address] [place], [place] [address] PROGRESS Observed: 09/09/2018 Status: COMPLETED Source: [place] 10:39 AM [facility] OTHER [place] REPOSITORY HNO ID: [id number] Author: Angel Han (Ex Phys) Deon Service: (none) Author Type: Dryer And Washer Mechanic Type: Progress Notes Filed: 09/09/2018 10:43 AM Note Text: Patient exercised in phase 3 cardiopulmonary rehabilitation today. Patients vitals WNL. CNOV Observed: 09/09/2018 Status: COMPLETED Source: [place] 10:30 AM [facility] OTHER [place] REPOSITORY Office Visit ([facility]) EVAN FLORES ([id number]) 1945 M Date Time Provider Department 09/09/18 10:30 AM CARD PULM REHAB PHASE 3 [facility] During your visit today, we recorded the following information about you: Angel Chavarria, Ex Vasquez 09/09/2018 10:43 AM Signed Patient exercised in phase 3 cardiopulmonary rehabilitation today. Patients vitals WNL. Referring Provider: ARCELIA BLAIR [[id number]] Allergies As of Date: 09/09/2018 (No Known Allergies) Date Reviewed: 09/05/2018 Reviewed by: Katie Putnam Ma - Fully Assessed Reason for Visit: Cardiac Rehab [0501] Primary Visit Diagnosis:IPF (idiopathic pulmonary fibrosis) ([facility]) [J84.112] Prescriptions as of 09/09/2018 Sig: AMLODIPINE 5 MG TABLET Take 1 tablet by mouth once d* ASPIRIN 81 MG TABLET,DELAYED * Take 1 tablet by mouth once d* CALCIUM CITRATE-VITAMIN D 630* Take 1 tablet by mouth once d* CHOLECALCIFEROL (VITAMIN D3) * VITAMIN D (CHOLECALCIFEROL) 1* CHOLECALCIFEROL (VITAMIN D3) * Take one(1) tablet daily. CLOPIDOGREL 75 MG TABLET 75 mg. LEVOTHYROXINE 25 MCG TABLET Take 1 tablet by mouth once d* NINTEDANIB 150 MG CAPSULE Take 1 capsule by mouth every* PANTOPRAZOLE 40 MG TABLET,DEL* Take 1 tablet by mouth once d* PRAVASTATIN 20 MG TABLET Take 1 tablet by mouth daily * Problem List As Of Date 09/09/2018 Noted Resolved IPF (idiopathic pulmonary fibrosis) ([facility]) [J84.*INVALID FOR* CKD (chronic kidney disease) [N18.9] INVALID FOR* Hoarse voice quality [R49.0] INVALID FOR* GERD (gastroesophageal reflux disease) [K21.9] INVALID FOR* HTN (hypertension) [I10] INVALID FOR*11/07/2016 Gammopathy, 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 BPH (benign prostatic hyperplasia) [N40.0] INVALID FOR* Family history of ischemic heart disease [Z82.4*INVALID FOR* Coronary artery disease involving [place] dougherty*INVALID FOR* More... 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] INVALID FOR* Acute midline low back pain [M54.5] INVALID FOR* Chronic hypoxemic respiratory failure (HCC) [J9*INVALID FOR* Pulmonary infiltrate [R91.8] INVALID FOR*05/23/2018 Abnormal weight loss [R63.4] INVALID FOR* Encounter Status:Closed by ANGEL CHAVARRIA on 09/09/18 CNOV Observed: 09/05/2018 Status: COMPLETED Source: [place] 12:55 PM [facility] REPOSITORY Office Visit ([facility]) EVAN FLORES ([id number]) 1945 M Date Time Provider Department 09/05/18 12:55 PM KIRTI ARANGO During your visit today, we recorded the following information about you: Temperature Pulse Respiration Blood pressure 98.4 degrees 82/minute 14/minute 140/77 Weight Height 81.2 kg 1.836 m Kirti Arango MD 09/05/2018 1:37 PM Signed Consultation requested by Dr. Mai for an opinion regarding IPF. My final recommendations will be communicated back to the requesting physician by way of shared Medical record or letter to requesting physician via [place] mail. HPI: I had the pleasure of seeing Evan Flores in follow-up in the [facility] at [facility] on September 05, 2018. As you are aware, he?is a 73-year-old lifetime nonsmoker with a past medical history significant for MGUS, CKD and GERD who I have been following in the [facility] Clinic regarding biopsy-proven IPF. His biopsy was reviewed by [facility] Pathology and showed definitive UIP. He has been on Esbriet since 2014. ? He presents today for routine follow up. Feels like he's gotten a little worse since last appointment. Using oxygen more frequently. Increased cough as well. Continues to tolerate Esbriet well. More easily fatigued. 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 - GERD (gastroesophageal reflux disease) - HTN (hypertension) - Hyperglycemia - IPF (idiopathic pulmonary fibrosis) (HCC) diagnosed December 2013 - Renal insufficiency FAMILY HISTORY Problem Relation Age of Onset - Diabetes Mother - Hypertension Mother - Heart Mother heart failure - other (pulmonary fibrosis) Mother sister as well - Hypertension Father - Seizures Father - COPD Father - other (pulmonary fibosis) Sister lung disease,lung transplant - Heart Brother GA, s/p stent - other (Lung Disease) Brother Social History: Social History Substance Use Topics - Smoking status: Never Smoker - Smokeless tobacco: Never Used - Alcohol use 6.0 - 16.5 oz/week 2 Cans of Beer (12oz), 2 - 3 Mixed Drinks per week Comment: ocas Allergies:ALLERGIES No Known Allergies Current Medications: amLODIPine (NORVASC) 5 mg tablet Take 1 tablet by mouth once daily. clopidogrel (PLAVIX) 75 mg tablet 75 mg. cholecalciferol (VITAMIN D3) 1,000 unit tab tablet VITAMIN D (CHOLECALCIFEROL) 1000 UNIT TABS pirfenidone (ESBRIET) 267 mg capsule ESBRIET 267 MG CAPS Cholecalciferol, Vitamin D3, (VITAMIN D-3) 2,000 unit cap Take one(1) tablet daily. Calcium Citrate-Vitamin D3 630-400 mg-unit Take 1 tablet by mouth once daily. levothyroxine (SYNTHROID) 25 mcg tablet Take 1 tablet by mouth once daily. Take on empty stomach. For thyroid. pantoprazole DR (PROTONIX) 40 mg tablet Take 1 tablet by mouth once daily. pravastatin (PRAVACHOL) 20 mg tablet Take 1 tablet by mouth daily at bedtime. aspirin, enteric coated (ECOTRIN LOW STRENGTH) 81 mg EC tablet Take 1 tablet by mouth once daily. pirfenidone (ESBRIET) 267 mg capsule Take three (3) capsules by mouth three (3) times daily. PHYSICAL EXAM: Vital signs: BP 140/77 Pulse 82 Temp (Src) 98.4 (Temporal Artery) Resp 14 Ht 6' .3 (1.84m) Wt 179 lb (81.2kg) SpO2 98[4 liters]% BMI 24.09 kg/(m2). Gen: Well appearing, well nourished male in NAD, AANDOx3 CV: Regular rate and rhythm. Normal S1S2. No murmurs, gallops or rubs appreciated. Lungs: Good air movement. Bibasilar crackles. No wheezes or rhonchi. Normal work of breathing. No accessory muscle use. MS: Extremities are warm and well perfused. No clubbing, cyanosis or edema appreciated. Labs: Pertinent labs reviewed. Spirometry/PFTs (09/05/2018): Spirometry suggests mild restriction. Gas exchange is severely impaired. Compared to his prior spirometry, FVC has declined slightly but DLCO remains at baseline. Pred LLN ULN Pre % FVC 4.76 3.75 5.77 3.39 71 FEV 1 3.47 2.62 4.33 2.84 82 FEV1%F 72.78 63.10 82.46 83.60 115 FEV 2 3.90 2.86 4.94 3.05 78 FEV 3 4.38 3.36 5.40 3.16 72 FEV3%E 89.76 85.12 94.40 93.18 104 MEF 50 4.40 2.78 6.03 6.55 149 FIF 50 7.07 MMEF 2.54 0.82 4.27 3.56 140 FE%FIF 92.69 FEV6 3.33 PEF 8.81 6.45 11.17 10.22 116 FET 9.12 FETPEF 0.09 VBe%FV 5.89 VBEex 0.20 DLCOSB 26.42 18.41 34.42 8.68 33 DL/VA 3.65 2.45 4.85 2.01 55 VA 7.37 6.00 8.74 4.31 58 SHAYNA 4.76 3.75 5.77 3.04 64 BHT 9.34 IMAGING: No new thoracic imaging. Assessment/Plan: Evan Flores is a 73 year old male who I am following in the [facility] for IPF. Continues to slowly decline which I continue to feel is a natural history of his disease. He would like to try a nintedanib rather than Pirfenidone and we will make this change. He was reminded to take nintedanib twice daily with food and to be on the lookout for diarrhea. He has his own information about the side effects of the medications well. He will stop the Pirfenidone in the upcoming week to allow one week washout in between anti-fibrotic therapy. He was reminded to check his LFTs once monthly after beginning nintedanib until he follows up. (J84.112) IPF (idiopathic pulmonary fibrosis) (HCC) (primary encounter diagnosis) (J96.11) Chronic hypoxemic respiratory failure (HCC) Comment: As above Plan: SPIROMETRY BASELINE ONLY, LUNG DIFFUSION CAPACITY (DLCO) Discontinue Pirfenidone Start Nintedanib 150 mg by mouth twice a day with food. Antidiarrheal when necessary. LFTs monthly for the first 3-6 months. Continue supplemental oxygen, 4 L/m with exertion. I would like to see Evan Flores return to clinic in 3 months. Thank you for referring Evan Flores to the Inter[facility] Disease Clinic at [facility]. Should you have any questions or concerns do not hesitate to contact me. -MD Kirti Couch MD 09/05/2018 1:22 PM Addendum Start Ofev 150 mg (1 tab) TWICE daily with food Liver labs every month until follow up. Stop Esbriet. Referring Provider: KEVIN MAI [[id number]] Allergies As of Date: 09/05/2018 (No Known Allergies) Date Reviewed: 09/05/2018 Reviewed by: Katie Putnam Ma - Fully Assessed Reason for Visit: Recheck [92] Primary Visit Diagnosis:IPF (idiopathic pulmonary fibrosis) (HCC) [J84.112] Other Visit Diagnosis:Chronic hypoxemic respiratory failure (HCC) [J96.11] Order(s):SPIROMETRY BASELINE ONLY [[id number]] Order #: [id number] FUTURE LUNG DIFFUSION CAPACITY (DLCO) [[id number]] Order #: [id number] FUTURE nintedanib (OFEV) 150 mg capsuleTake 1 capsule by mouth every 12 hours.Disp: Rfl: Prescriptions as of 09/05/2018 Sig: AMLODIPINE 5 MG TABLET Take 1 tablet by mouth once d* ASPIRIN 81 MG TABLET,DELAYED * Take 1 tablet by mouth once d* CALCIUM CITRATE-VITAMIN D 630* Take 1 tablet by mouth once d* CHOLECALCIFEROL (VITAMIN D3) * VITAMIN D (CHOLECALCIFEROL) 1* CHOLECALCIFEROL (VITAMIN D3) * Take one(1) tablet daily. CLOPIDOGREL 75 MG TABLET 75 mg. LEVOTHYROXINE 25 MCG TABLET Take 1 tablet by mouth once d* NINTEDANIB 150 MG CAPSULE Take 1 capsule by mouth every* PANTOPRAZOLE 40 MG TABLET,DEL* Take 1 tablet by mouth once d* PRAVASTATIN 20 MG TABLET Take 1 tablet by mouth daily * Problem List As Of Date 09/05/2018 Noted Resolved IPF (idiopathic pulmonary fibrosis) (HCC) [J84.*INVALID FOR* CKD (chronic kidney disease) [N18.9] INVALID FOR* Hoarse voice quality [R49.0] INVALID FOR* GERD (gastroesophageal reflux disease) [K21.9] INVALID FOR* HTN (hypertension) [I10] INVALID FOR*11/07/2016 Gammopathy, 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 BPH (benign prostatic hyperplasia) [N40.0] INVALID FOR* Family history of ischemic heart disease [Z82.4*INVALID FOR* Coronary artery disease involving tyonek dougherty*INVALID FOR* More... 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 Stop Esbriet. Prescriptions ordered this encounter Disp Refills Start End NINTEDANIB 150 MG CAPSULE 09/05/2018 Class: Med Update Route: ORAL Sig: Take 1 capsule by mouth every 12 hours. Medications Discontinued During This Encounter pirfenidone (ESBRIET) 267 mg capsule 07/23/2017 09/05/2018 Class: Historical Med Sig: ESBRIET 267 MG CAPS Disc: Clinical Decision pirfenidone (ESBRIET) 267 mg capsule 09/05/2018 Class: Historical Med Sig: Take three (3) capsules by mouth three (3) times daily. Disc: Reason for discontinue is not on file. Disposition: Return in about 3 months (around 12/04/2018). Follow-up and Disposition History Recorded Letter Text Kirti Arango MD Staff Physician [facility] [place] [address] [place] [address] [address] [id number] September 16, 2018 Kevin Mai MD [facility] [place] [address] NAME:Evan Flores : [address] Mai, It was a pleasure to see your patient, Evan Flores, in the Pulmonary Department at the [facility], on September 05, 2018. Attached please find a copy of the visit summary. I appreciate having the opportunity to see your patient. If I can be of further assistance to you or if you have any questions regarding this report, please feel free to contact me. Sincerely, Kirti Arango MD Consultation requested by Dr. Mai for an opinion regarding IPF. My final recommendations will be communicated back to the requesting physician by way of shared Medical record or letter to requesting physician via US mail. HPI: I had the pleasure of seeing Evan Flores in follow-up in the [facility] at [facility] on September 05, 2018. As you are aware, he?is a 73-year-old lifetime nonsmoker with a past medical history significant for MGUS, CKD and GERD who I have been following in the [facility] regarding biopsy-proven IPF. His biopsy was reviewed by [facility] Pathology and showed definitive UIP. He has been on Esbriet since 2014. ? He presents today for routine follow up. Feels like he's gotten a little worse since last appointment. Using oxygen more frequently. Increased cough as well. Continues to tolerate Esbriet well. More easily fatigued. 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 - GERD (gastroesophageal reflux disease) - HTN (hypertension) - Hyperglycemia - IPF (idiopathic pulmonary fibrosis) (HCC) diagnosed December 2013 - Renal insufficiency FAMILY HISTORY Problem Relation Age of Onset - Diabetes Mother - Hypertension Mother - Heart Mother heart failure - other (pulmonary fibrosis) Mother sister as well - Hypertension Father - Seizures Father - COPD Father - other (pulmonary fibosis) Sister lung disease,lung transplant - Heart Brother [place], s/p stent - other (Lung Disease) Brother Social History: Social History Substance Use Topics - Smoking status: Never Smoker - Smokeless tobacco: Never Used - Alcohol use 6.0 - 16.5 oz/week 2 Cans of Beer (12oz), 2 - 3 Mixed Drinks per week Comment: ocas Allergies:ALLERGIES No Known Allergies Current Medications: amLODIPine (NORVASC) 5 mg tablet Take 1 tablet by mouth once daily. aspirin, enteric coated (ECOTRIN LOW STRENGTH) 81 mg EC tablet Take 1 tablet by mouth once daily. Calcium Citrate-Vitamin D3 630-400 mg-unit Take 1 tablet by mouth once daily. cholecalciferol (VITAMIN D3) 1,000 unit tab tablet VITAMIN D (CHOLECALCIFEROL) 1000 UNIT TABS Cholecalciferol, Vitamin D3, (VITAMIN D-3) 2,000 unit cap Take one(1) tablet daily. clopidogrel (PLAVIX) 75 mg tablet 75 mg. levothyroxine (SYNTHROID) 25 mcg tablet Take 1 tablet by mouth once daily. Take on empty stomach. For thyroid. nintedanib (OFEV) 150 mg capsule Take 1 capsule by mouth every [address] (PROTONIX) 40 mg tablet Take 1 tablet by mouth once daily. pravastatin (PRAVACHOL) 20 mg tablet Take 1 tablet by mouth daily at bedtime. PHYSICAL EXAM: Vital signs: BP 140/77 Pulse 82 Temp (Src) 98.4 (Temporal Artery) Resp 14 Ht 6' .3 (1.84m) Wt 179 lb (81.2kg) SpO2 98[4 liters]% BMI 24.09 kg/(m2). Gen: Well appearing, well nourished male in NAD, AANDOx3 CV: Regular rate and rhythm. Normal S1S2. No murmurs, gallops or rubs appreciated. Lungs: Good air movement. Bibasilar crackles. No wheezes or rhonchi. Normal work of breathing. No accessory muscle use. MS: Extremities are warm and well perfused. No clubbing, cyanosis or edema appreciated. Labs: Pertinent labs reviewed. Spirometry/PFTs (09/05/2018): Spirometry suggests mild restriction. Gas exchange is severely impaired. Compared to his prior spirometry, FVC has declined slightly but DLCO remains at baseline. Pred LLN ULN Pre % FVC 4.76 3.75 5.77 3.39 71 FEV 1 3.47 2.62 4.33 2.84 82 FEV1%F 72.78 63.10 82.46 83.60 115 FEV 2 3.90 2.86 4.94 3.05 78 FEV 3 4.38 3.36 5.40 3.16 72 FEV3%E 89.76 85.12 94.40 93.18 104 MEF 50 4.40 2.78 6.03 6.55 149 FIF 50 7.07 MMEF 2.54 0.82 4.27 3.56 140 FE%FIF 92.69 FEV6 3.33 PEF 8.81 6.45 11.17 10.22 116 FET 9.12 FETPEF 0.09 VBe%FV 5.89 VBEex 0.20 DLCOSB 26.42 18.41 34.42 8.68 33 DL/VA 3.65 2.45 4.85 2.01 55 VA 7.37 6.00 8.74 4.31 58 SHAYNA 4.76 3.75 5.77 3.04 64 BHT 9.34 IMAGING: No new thoracic imaging. Assessment/Plan: Evan Flores is a 73 year old male who I am following in the [facility] for IPF. Continues to slowly decline which I continue to feel is a natural history of his disease. He would like to try a nintedanib rather than Pirfenidone and we will make this change. He was reminded to take nintedanib twice daily with food and to be on the lookout for diarrhea. He has his own information about the side effects of the medications well. He will stop the Pirfenidone in the upcoming week to allow one week washout in between anti-fibrotic therapy. He was reminded to check his LFTs once monthly after beginning nintedanib until he follows up. (J84.112) IPF (idiopathic pulmonary fibrosis) ([facility]) (primary encounter diagnosis) (J96.11) Chronic hypoxemic respiratory failure ([facility]) Comment: As above Plan: SPIROMETRY BASELINE ONLY, LUNG DIFFUSION CAPACITY (DLCO) Discontinue Pirfenidone Start Nintedanib 150 mg by mouth twice a day with food. Antidiarrheal when necessary. LFTs monthly for the first 3-6 months. Continue supplemental oxygen, 4 L/m with exertion. I would like to see Evan Flores return to clinic in 3 months. Thank you for referring Evan Flores to the [facility] Clinic at the [facility]. Should you have any questions or concerns do not hesitate to contact me. -Kirti Arango MD Encounter Status:Closed by KIRTI ARANGO MD on 09/05/18 PROGRESS Observed: 09/05/2018 Status: COMPLETED Source: [place] 12:38 PM [facility] REPOSITORY O ID: [id number] Author: Kirti Arango Service: (none) Author Type: Physician Type: Progress Notes Filed: 09/05/2018 1:37 PM Note Text: Consultation requested by Dr. Mai for an opinion regarding IPF. My final recommendations will be communicated back to the requesting physician by way of shared Medical record or letter to requesting physician via [place] mail. HPI: I had the pleasure of seeing Evan Flores in follow-up in the [facility] at [facility] on September 05, 2018. As you are aware, he?is a 73-year-old lifetime nonsmoker with a past medical history significant for MGUS, CKD and GERD who I have been following in the [facility] Clinic regarding biopsy-proven IPF. His biopsy was reviewed by [facility] Pathology and showed definitive UIP. He has been on Esbriet since 2014. ? He presents today for routine follow up. Feels like he's gotten a little worse since last appointment. Using oxygen more frequently. Increased cough as well. Continues to tolerate Esbriet well. More easily fatigued. 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 - GERD (gastroesophageal reflux disease) - HTN (hypertension) - Hyperglycemia - IPF (idiopathic pulmonary fibrosis) (HCC) diagnosed December 2013 - Renal insufficiency FAMILY HISTORY Problem Relation Age of Onset - Diabetes Mother - Hypertension Mother - Heart Mother heart failure - other (pulmonary fibrosis) Mother sister as well - Hypertension Father - Seizures Father - COPD Father - other (pulmonary fibosis) Sister lung disease,lung transplant - Heart Brother [place], s/p stent - other (Lung Disease) Brother Social History: Social History Substance Use Topics - Smoking status: Never Smoker - Smokeless tobacco: Never Used - Alcohol use 6.0 - 16.5 oz/week 2 Cans of Beer (12oz), 2 - 3 Mixed Drinks per week Comment: ocas Allergies:ALLERGIES No Known Allergies Current Medications: amLODIPine (NORVASC) 5 mg tablet Take 1 tablet by mouth once daily. clopidogrel (PLAVIX) 75 mg tablet 75 mg. cholecalciferol (VITAMIN D3) 1,000 unit tab tablet VITAMIN D (CHOLECALCIFEROL) 1000 UNIT TABS pirfenidone (ESBRIET) 267 mg capsule ESBRIET 267 MG CAPS Cholecalciferol, Vitamin D3, (VITAMIN D-3) 2,000 unit cap Take one(1) tablet daily. Calcium Citrate-Vitamin D3 630-400 mg-unit Take 1 tablet by mouth once daily. levothyroxine (SYNTHROID) 25 mcg tablet Take 1 tablet by mouth once daily. Take on empty stomach. For thyroid. pantoprazole DR (PROTONIX) 40 mg tablet Take 1 tablet by mouth once daily. pravastatin (PRAVACHOL) 20 mg tablet Take 1 tablet by mouth daily at bedtime. aspirin, enteric coated (ECOTRIN LOW STRENGTH) 81 mg EC tablet Take 1 tablet by mouth once daily. pirfenidone (ESBRIET) 267 mg capsule Take three (3) capsules by mouth three (3) times daily. PHYSICAL EXAM: Vital signs: BP 140/77 Pulse 82 Temp (Src) 98.4 (Temporal Artery) Resp 14 Ht 6' .3 (1.84m) Wt 179 lb (81.2kg) SpO2 98[4 liters]% BMI 24.09 kg/(m2). Gen: Well appearing, well nourished male in NAD, AANDOx3 CV: Regular rate and rhythm. Normal S1S2. No murmurs, gallops or rubs appreciated. Lungs: Good air movement. Bibasilar crackles. No wheezes or rhonchi. Normal work of breathing. No accessory muscle use. MS: Extremities are warm and well perfused. No clubbing, cyanosis or edema appreciated. Labs: Pertinent labs reviewed. Spirometry/PFTs (09/05/2018): Spirometry suggests mild restriction. Gas exchange is severely impaired. Compared to his prior spirometry, FVC has declined slightly but DLCO remains at baseline. Pred LLN ULN Pre % FVC 4.76 3.75 5.77 3.39 71 FEV 1 3.47 2.62 4.33 2.84 82 FEV1%F 72.78 63.10 82.46 83.60 115 FEV 2 3.90 2.86 4.94 3.05 78 FEV 3 4.38 3.36 5.40 3.16 72 FEV3%E 89.76 85.12 94.40 93.18 104 MEF 50 4.40 2.78 6.03 6.55 149 FIF 50 7.07 MMEF 2.54 0.82 4.27 3.56 140 FE%FIF 92.69 FEV6 3.33 PEF 8.81 6.45 11.17 10.22 116 FET 9.12 FETPEF 0.09 VBe%FV 5.89 VBEex 0.20 DLCOSB 26.42 18.41 34.42 8.68 33 DL/VA 3.65 2.45 4.85 2.01 55 VA 7.37 6.00 8.74 4.31 58 SHAYNA 4.76 3.75 5.77 3.04 64 BHT 9.34 IMAGING: No new thoracic imaging. Assessment/Plan: Evan Flores is a 73 year old male who I am following in the [facility] for IPF. Continues to slowly decline which I continue to feel is a natural history of his disease. He would like to try a nintedanib rather than Pirfenidone and we will make this change. He was reminded to take nintedanib twice daily with food and to be on the lookout for diarrhea. He has his own information about the side effects of the medications well. He will stop the Pirfenidone in the upcoming week to allow one week washout in between anti-fibrotic therapy. He was reminded to check his LFTs once monthly after beginning nintedanib until he follows up. (J84.112) IPF (idiopathic pulmonary fibrosis) ([facility]) (primary encounter diagnosis) (J96.11) Chronic hypoxemic respiratory failure ([facility]) Comment: As above Plan: SPIROMETRY BASELINE ONLY, LUNG DIFFUSION CAPACITY (DLCO) Discontinue Pirfenidone Start Nintedanib 150 mg by mouth twice a day with food. Antidiarrheal when necessary. LFTs monthly for the first 3-6 months. Continue supplemental oxygen, 4 L/m with exertion. I would like to see Evan Flores return to clinic in 3 months. Thank you for referring Evan Flores to the [facility] Clinic at the [facility]. Should you have any questions or concerns do not hesitate to contact me. -Kirti Arango MD PROGRESS Observed: 09/04/2018 Status: COMPLETED Source: [place] 4:04 PM [facility] REPOSITORY HNO ID: [id number] Author: Digna Stokes ([place]) Service: (none) Author Type: Physician Environmental Services Project Manager Type: Progress Notes Filed: 09/04/2018 6:25 PM Note Text: FOLLOW UP VISIT - ENDOSCOPY NAME: Evan Flores [facility] NO.: [id number] DATE OF SERVICE: 09/04/2018 : 1945 REFERRING PHYSICIAN: Kevin Mai MD Evan is a patient I am following for screening colonoscopy and history of GERD. Dr. Whittington performed upper and lower endoscopy on 08/28/18. The patient was found to have a normal colon, gastritis and esophagitis. Pathology demonstrated: MICROSCOPIC DIAGNOSIS A. Antral biopsy: Mild gastritis. B. Distal esophageal biopsy: A fragment of squamous epithelium with minimal chronic inflammation. C. Mid esophageal biopsy: A fragment of squamous epithelium with minimal congestion and chronic inflammation. SJ:jigra 08/29/18 RESULTS: ANTIBODY / CLONE RESULT Block A H Pylori (polyclonal) negative These tests were developed and their performance characteristics determined by [facility]. They may not have been cleared or approved by the U.S. Food and Drug Administration. The FDA has determined that such clearance or approval is not necessary. INTERPRETATION: A. Antral biopsy: Negative for Helicobacter pylori organisms. SJ:rg 08/29/18 The patient notes no complaints since the procedure. VITALS: There were no vitals taken for this visit. On examination, the abdomen is benign. Assessment IMPRESSION: normal screening colonoscopy, GERD and gastritis PLAN: I have reviewed the operative findings and pathology report with the patient, and the patient had the opportunity to ask questions and have questions answered. -Continue PPI -Dietary and lifestyle modifications as discussed -Call if symptoms worsen or persist despite above measures Patient verbalized understanding of above and agreed with the plan Diagnoses: (Z12.11) Special screening for malignant neoplasm of colon (primary encounter diagnosis) (K21.0) GERD with esophagitis I spent 20 minutes in the visit, with more than 50% of the total [id number] time of the visit in counseling / coordination of care. Digna Stokes PA-C CNOV Observed: 09/04/2018 Status: COMPLETED Source: [place] 3:30 PM [facility] REPOSITORY Office Visit ([facility]) EVAN FLORES ([id number]) 1945 M Date Time Provider Department 09/04/18 3:30 PM DIGNA STOKES ([place]) During your visit today, we recorded the following information about you: Digna Stokes PA-C 09/04/2018 4:00 PM Addendum The following instructions are important for you related to your office visit today with the [facility]. INSTRUCTIONS FOLLOWING A NORMAL COLONOSCOPY I discussed with you the findings of your colonoscopy. Since there were no worrisome abnormalities, I recommend you undergo repeat endoscopic screening every 10 years. This is the current recommendation for colon cancer screening. If you note bleeding, change in bowel habits, or other suspicious colon related symptoms before that time, those symptoms should be evaluated as necessary. And INSTRUCTIONS FOR PEPTIC ULCER DISEASE/GASTRITIS /ESOPHAGITIS I discussed with you the findings of your upper endoscopy. Your upper endoscopy demonstrated signs of peptic ulcer disease or irritation, as well as irritation in the esophagus. This can be seen as a range of issues from actual ulcers in the stomach or duodenum (first part of the small bowel) or irritation ranging from redness to more significant irritation with erosions of the stomach or duodenum. These conditions are usually caused from a combination of too much acid production or too little protective mucus production in the stomach. Factors that increase acid production include smoking and stress. If you smoke, stopping smoking will often cure these issues without needing other medications. Factors that decrease the stomach's production of protective mucus include alcohol consumption, smoking, aspirin and other anti-inflammatory use. Over the counter medications including antiacids and acid reducing medications including H2 blockers (Zantac and the like) and proton pump inhibitors (prilosec, prevacid and the like) neutralize or prevent acid production. Prescription strength proton pump inhibitors (PPIs) may be necessary if your symptoms persist. Carafate may be added to PPI treatment in refractory cases. Avoiding smoking, alcohol and antiinflammatory medications are important in the successful treatment of peptic diseases. Avoid eating or drinking after 7 pm Elevate head of bed at night/prop up upper body with extra pillow(s) New or worsening symptoms such are epigastric pain, burning, difficulty swallowing or food sticking should be relayed to your physician. Feeling full early after eating, or black, tarry, foul smelling stools are also worrisome. If you have any difficulties or concerns, you should contact our office immediately. If you note any additional difficulties, questions, or concerns, you should contact our office immediately @ [phone] and ask to be transferred to the General Surgery department. Digna Stokes PA-C 09/04/2018 6:25 PM Signed FOLLOW UP VISIT - ENDOSCOPY NAME: Evan Wright Flores [facility] NO.: [id number] DATE OF SERVICE: 09/04/2018 : 1945 REFERRING PHYSICIAN: Kevin Mai MD Evan is a patient I am following for screening colonoscopy and history of GERD. Dr. Whittington performed upper and lower endoscopy on 08/28/18. The patient was found to have a normal colon, gastritis and esophagitis. Pathology demonstrated: MICROSCOPIC DIAGNOSIS A. Antral biopsy: Mild gastritis. B. Distal esophageal biopsy: A fragment of squamous epithelium with minimal chronic inflammation. C. Mid esophageal biopsy: A fragment of squamous epithelium with minimal congestion and chronic inflammation. SJ:jigar 08/29/18 RESULTS: ANTIBODY / CLONE RESULT Block A H Pylori (polyclonal) negative These tests were developed and their performance characteristics determined by [facility]. They may not have been cleared or approved by the U.S. Food and Drug Administration. The FDA has determined that such clearance or approval is not necessary. INTERPRETATION: A. Antral biopsy: Negative for Helicobacter pylori organisms. SJ:jigar 08/29/18 The patient notes no complaints since the procedure. VITALS: There were no vitals taken for this visit. On examination, the abdomen is benign. Assessment IMPRESSION: normal screening colonoscopy, GERD and gastritis PLAN: I have reviewed the operative findings and pathology report with the patient, and the patient had the opportunity to ask questions and have questions answered. -Continue PPI -Dietary and lifestyle modifications as discussed -Call if symptoms worsen or persist despite above measures Patient verbalized understanding of above and agreed with the plan Diagnoses: (Z12.11) Special screening for malignant neoplasm of colon (primary encounter diagnosis) (K21.0) GERD with esophagitis I spent 20 minutes in the visit, with more than 50% of the total [id number] time of the visit in counseling / coordination of care. Digna Stokes PA-C Referring Provider: SELF [[id number]] Allergies As of Date: 09/04/2018 (No Known Allergies) Date Reviewed: 09/04/2018 Reviewed by: Digna (Rodney) - Fully Assessed Reason for Visit: Follow Up [171] Primary Visit Diagnosis:Special screening for malignant neoplasm of colon [Z12.11] Other Visit Diagnosis:GERD with esophagitis [K21.0] Prescriptions as of 09/04/2018 Sig: AMLODIPINE 5 MG TABLET Take 1 tablet by mouth once d* CLOPIDOGREL 75 MG TABLET 75 mg. CHOLECALCIFEROL (VITAMIN D3) * VITAMIN D (CHOLECALCIFEROL) 1* PIRFENIDONE 267 MG CAPSULE ESBRIET 267 MG CAPS CHOLECALCIFEROL (VITAMIN D3) * Take one(1) tablet daily. CALCIUM CITRATE-VITAMIN D 630* Take 1 tablet by mouth once d* LEVOTHYROXINE 25 MCG TABLET Take 1 tablet by mouth once d* PANTOPRAZOLE 40 MG TABLET,DEL* Take 1 tablet by mouth once d* PRAVASTATIN 20 MG TABLET Take 1 tablet by mouth daily * ASPIRIN 81 MG TABLET,DELAYED * Take 1 tablet by mouth once d* PIRFENIDONE 267 MG CAPSULE Take three (3) capsules by mo* Problem List As Of Date 09/04/2018 Noted Resolved IPF (idiopathic pulmonary fibrosis) (HCC) [J84.*INVALID FOR* CKD (chronic kidney disease) [N18.9] INVALID FOR* Hoarse voice quality [R49.0] INVALID FOR* GERD (gastroesophageal reflux disease) [K21.9] INVALID FOR* HTN (hypertension) [I10] INVALID FOR*11/07/2016 Gammopathy, 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 BPH (benign prostatic hyperplasia) [N40.0] INVALID FOR* Family history of ischemic heart disease [Z82.4*INVALID FOR* Coronary artery disease involving tyonek dougherty*INVALID FOR* More... 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 INSTRUCTIONS FOLLOWING A NORMAL COLONOSCOPY I discussed with you the findings of your colonoscopy. Since there were no worrisome abnormalities, I recommend you undergo repeat endoscopic screening every 10 years. This is the current recommendation for colon cancer screening. If you note bleeding, change in bowel habits, or other suspicious colon related symptoms before that time, those symptoms should be evaluated as necessary. And INSTRUCTIONS FOR PEPTIC ULCER DISEASE/GASTRITIS /ESOPHAGITIS I discussed with you the findings of your upper endoscopy. Your upper endoscopy demonstrated signs of peptic ulcer disease or irritation, as well as irritation in the esophagus. This can be seen as a range of issues from actual ulcers in the stomach or duodenum (first part of the small bowel) or irritation ranging from redness to more significant irritation with erosions of the stomach or duodenum. These conditions are usually caused from a combination of too much acid production or too little protective mucus production in the stomach. Factors that increase acid production include smoking and stress. If you smoke, stopping smoking will often cure these issues without needing other medications. Factors that decrease the stomach's production of protective mucus include alcohol consumption, smoking, aspirin and other anti-inflammatory use. Over the counter medications including antiacids and acid reducing medications including H2 blockers (Zantac and the like) and proton pump inhibitors (prilosec, prevacid and the like) neutralize or prevent acid production. Prescription strength proton pump inhibitors (PPIs) may be necessary if your symptoms persist. Carafate may be added to PPI treatment in refractory cases. Avoiding smoking, alcohol and antiinflammatory medications are important in the successful treatment of peptic diseases. Avoid eating or drinking after 7 pm Elevate head of bed at night/prop up upper body with extra pillow(s) New or worsening symptoms such are epigastric pain, burning, difficulty swallowing or food sticking should be relayed to your physician. Feeling full early after eating, or black, tarry, foul smelling stools are also worrisome. If you have any difficulties or concerns, you should contact our office immediately. If you note any additional difficulties, questions, or concerns, you should contact our office immediately @ [phone] and ask to be transferred to the General Surgery department. Follow-up and Disposition History Recorded Encounter Status:Closed by DIGNA STOKES PA-C on 09/04/18 PROGRESS Observed: 09/04/2018 Status: COMPLETED Source: [place] 10:50 AM [facility] REPOSITORY HNO ID: [id number] Author: Angel Chavarria (Ex Phys) Service: (none) Author Type: Dryer And Washer Mechanic Type: Progress Notes Filed: 09/04/2018 10:51 AM Note Text: Patient exercised in phase 3 cardiopulmonary rehabilitation today. Patients vitals WNL. CNOV Observed: 09/04/2018 Status: COMPLETED Source: [place] 10:30 AM [facility] REPOSITORY [facility] EVAN FLORES ([id number]) 1945 M Date Time Provider Department 09/04/18 10:30 AM CARD PUL REHAB PHASE 3 [facility] During your visit today, we recorded the following information about you: Hardik Arcos 09/04/2018 10:51 AM Signed Patient exercised in phase 3 cardiopulmonary rehabilitation today. Patients vitals WNL. Referring Provider: ARCELIA BLAIR [[id number]] Allergies As of Date: 09/04/2018 (No Known Allergies) Date Reviewed: 07/15/2018 Reviewed by: Digna Townsend) - Fully Assessed Primary Visit Diagnosis:IPF (idiopathic pulmonary fibrosis) ([facility]) [J84.112] Prescriptions as of 09/04/2018 Sig: AMLODIPINE 5 MG TABLET Take 1 tablet by mouth once d* CLOPIDOGREL 75 MG TABLET 75 mg. CHOLECALCIFEROL (VITAMIN D3) * VITAMIN D (CHOLECALCIFEROL) 1* PIRFENIDONE 267 MG CAPSULE ESBRIET 267 MG CAPS CHOLECALCIFEROL (VITAMIN D3) * Take one(1) tablet daily. CALCIUM CITRATE-VITAMIN D 630* Take 1 tablet by mouth once d* LEVOTHYROXINE 25 MCG TABLET Take 1 tablet by mouth once d* PANTOPRAZOLE 40 MG TABLET,DEL* Take 1 tablet by mouth once d* PRAVASTATIN 20 MG TABLET Take 1 tablet by mouth daily * ASPIRIN 81 MG TABLET,DELAYED * Take 1 tablet by mouth once d* PIRFENIDONE 267 MG CAPSULE Take three (3) capsules by mo* Problem List As Of Date 09/04/2018 Noted Resolved IPF (idiopathic pulmonary fibrosis) ([facility]) [J84.*INVALID FOR* CKD (chronic kidney disease) [N18.9] INVALID FOR* Hoarse voice quality [R49.0] INVALID FOR* GERD (gastroesophageal reflux disease) [K21.9] INVALID FOR* HTN (hypertension) [I10] INVALID FOR*11/07/2016 Gammopathy, 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 BPH (benign prostatic hyperplasia) [N40.0] INVALID FOR* Family history of ischemic heart disease [Z82.4*INVALID FOR* Coronary artery disease involving tyonek dougherty*INVALID FOR* More... 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] INVALID FOR* Acute midline low back pain [M54.5] INVALID FOR* Chronic hypoxemic respiratory failure (HCC) [J9*INVALID FOR* Pulmonary infiltrate [R91.8] INVALID FOR*05/23/2018 Abnormal weight loss [R63.4] INVALID FOR* Encounter Status:Closed by ANGEL CHAVARRIA on 09/04/18 COMP METABOLIC PANEL Collected: 09/02/2018 Status: F Source: [place] 12:31 PM [facility] REPOSITORY TYPE CODE TESTS RESULT OUT OF REFERENCE UNITS RANGE LAB TP 6.3-8.0 g/dL Protein, Total 7.2 LAB ALB 3.9-4.9 g/dL Albumin 4.2 LAB CA 8.5-10.2 mg/dL Calcium, Total 9.3 LAB TBIL 0.2-1.3 mg/dL Bilirubin, Total 0.2 LAB ALKP 38-113 U/L Alkaline Phosphatase 49 LAB AST 14-40 U/L AST 23 LAB GLU 74-99 mg/dL Glucose 96 LAB BUN 9-24 mg/dL BUN 16 LAB CRET 0.73-1.22 mg/dL Creatinine High 1.26 LAB NA 136-144 mmol/L Sodium 138 LAB K 3.7-5.1 mmol/L Potassium 4.3 LAB CL 97-105 mmol/L Chloride 99 LAB CO2 22-30 mmol/L CO2 30 LAB AGAP 9-18 mmol/L Anion Gap 9 LAB ALT 10-54 U/L ALT Low 8 LAB GFRAA eGFR- >60 Amer. LAB GFRNAA . eGFR-All Other Races 56 Result Comment: eGFR (Estimated GFR) Units of measure: mL/min/1.73 meters squared eGFR is derived from the reexpressed MDRD Study equation using the following parameters: serum creatinine, age, gender and race. The creatinine assay has been calibrated to be traceable to IDMS. An eGFR <60 mL/min/1.73m2 for >3 months is consistent with chronic kidney disease. Refer to KDOQI guidelines for clinical interpretation. In patients with unstable renal function, e.g. those with acute kidney injury, the eGFR may not accurately reflect actual GFR. PROGRESS Observed: 09/02/2018 Status: COMPLETED Source: [place] 10:19 AM [facility]AMP[facility] REPOSITORY HNO ID: [id number] Author: Angel Han (Ex Phys) Deon Service: (none) Author Type: Dryer And Washer Mechanic Type: Progress Notes Filed: 09/02/2018 10:20 AM Note Text: Patient exercised in phase 3 cardiopulmonary rehabilitation today. Patients vitals WNL. HOSP Observed: 09/02/2018 Status: COMPLETED Source: [place] 12:00 AM [facility] OTHER [place] REPOSITORY Patient Update ([facility]) EVAN FLORES ([id number]) 1945 M Date Time Provider Department 09/02/18 ANGEL CHAVARRIA (EX PHYS) [facility] During your visit today, we recorded the following information about you: Hardik Arcos 09/02/2018 10:20 AM Signed Patient exercised in phase 3 cardiopulmonary rehabilitation today. Patients vitals WNL. Allergies As of Date: 09/02/2018 (No Known Allergies) Date Reviewed: 07/15/2018 Reviewed by: Digna Stokes (Pa) - Fully Assessed Prescriptions as of 09/02/2018 Sig: AMLODIPINE 5 MG TABLET Take 1 tablet by mouth once d* CLOPIDOGREL 75 MG TABLET 75 mg. CHOLECALCIFEROL (VITAMIN D3) * VITAMIN D (CHOLECALCIFEROL) 1* PIRFENIDONE 267 MG CAPSULE ESBRIET 267 MG CAPS CHOLECALCIFEROL (VITAMIN D3) * Take one(1) tablet daily. CALCIUM CITRATE-VITAMIN D 630* Take 1 tablet by mouth once d* LEVOTHYROXINE 25 MCG TABLET Take 1 tablet by mouth once d* PANTOPRAZOLE 40 MG TABLET,DEL* Take 1 tablet by mouth once d* PRAVASTATIN 20 MG TABLET Take 1 tablet by mouth daily * ASPIRIN 81 MG TABLET,DELAYED * Take 1 tablet by mouth once d* PIRFENIDONE 267 MG CAPSULE Take three (3) capsules by mo* Problem List As Of Date 09/02/2018 Noted Resolved IPF (idiopathic pulmonary fibrosis) (HCC) [J84.*INVALID FOR* CKD (chronic kidney disease) [N18.9] INVALID FOR* Hoarse voice quality [R49.0] INVALID FOR* GERD (gastroesophageal reflux disease) [K21.9] INVALID FOR* HTN (hypertension) [I10] INVALID FOR*11/07/2016 Gammopathy, 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 BPH (benign prostatic hyperplasia) [N40.0] INVALID FOR* Family history of ischemic heart disease [Z82.4*INVALID FOR* Coronary artery disease involving tyonek dougherty*INVALID FOR* More... 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 August 28, 2018 Evan Flores 1945 [id number] male PROCEDURE: EGD WITH BIOPSY - [id number] and COLONOSCOPY - 61401-119 SURGEON: Remi Whittington M.D. FACS PHOTOGRAPHIC LITHOGRAPHER: None DEPT: WQ PROVIDER: [id number] Whittington MD POS: [id number] DIAGNOSIS: (K21.9) Gastroesophageal reflux disease, esophagitis presence not specified (primary encounter diagnosis) (Z12.11) Encounter for screening for malignant neoplasm of colon (K29.50) Chronic antral gastritis ASA CLASS: 3 - Severe FINDINGS: COMPLICATIONS: None PMHx - PAST MEDICAL HISTORY Diagnosis Date - Back pain lower lumbar pain - Concussion 02/2011 AND 09/2011 - Gammopathy, 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 - GERD (gastroesophageal reflux disease) - HTN (hypertension) - Hyperglycemia - IPF (idiopathic pulmonary fibrosis) (HCC) diagnosed December 2013 - Renal insufficiency COMORBIDITIES - Chronic Pulmonary, COPD and HTN Post Op Occurrences - None Wound Classification - Clean Contaminated Operative note dictated in the [facility] dictation system. Isiah Whittington MD OPERATIVE REPORT - Observed: 08/28/2018 Status: F Source: [facility] 7:[address] [facility] REPOSITORY [facility] Medical Records Department [address] [place] [address] Operative Report - Endoscopy MR#: [id number] Acct: [id number] Name: EVAN FLORES Rep #: [id number] : 1945 73 From: Isiah Whittington MD PCP: Kevin Mai MD [place] [facility] Patient Name: Evan Flores Procedure Date: 08/28/2018 6:45 AM Date of : 1945 Age: 73 Procedure: Colonoscopy Indications: Screening for colorectal malignant neoplasm Providers: Isiah Whittington MD Referring MD: Isiah Whittington MD Medicines: Monitored Anesthesia Care Patient Profile: This is a 73 year old male. Refer to note in patient chart for documentation of history and physical. Last Colonoscopy: 10 years ago. Complications: No immediate complications. Procedure: Pre-Anesthesia Assessment: - Prior to the procedure, a History and Physical was performed, and patient medications and allergies were reviewed. The patient is competent. The risks and benefits of the procedure and the sedation options and risks were discussed with the patient. All questions were answered and informed consent was obtained. Patient identification and proposed procedure were verified by the physician, the nurse and the anesthesiologist in the procedure room. Mental Status Examination: alert and oriented. Airway Examination: normal oropharyngeal airway and neck mobility. Respiratory Examination: clear to auscultation. CV Examination: normal. Prophylactic Antibiotics: The patient does not require prophylactic antibiotics. Prior Anticoagulants: The patient has taken no previous anticoagulant or antiplatelet agents. ASA Grade Assessment: III - A patient with severe systemic disease. After reviewing the risks and benefits, the patient was deemed in satisfactory condition to undergo the procedure. The anesthesia plan was to use monitored anesthesia care (MAC). Immediately prior to administration of medications, the patient was re-assessed for adequacy to receive sedatives. The heart rate, respiratory rate, oxygen saturations, blood pressure, adequacy of pulmonary ventilation, and response to care were monitored throughout the procedure. The physical status of the patient was re-assessed after the procedure. After I obtained informed consent, the scope was passed under direct vision. Throughout the procedure, the patient's blood pressure, pulse, and oxygen saturations were monitored continuously. The pediatric colonoscope was introduced through the anus and advanced to the cecum, identified by the appendiceal orifice, ileocecal valve and palpation. Scope In: 6:46:41 AM Scope Withdrawal Time 0 hours 10 minutes 11 seconds Scope Out: 7:05:31 AM Total Procedure Duration Time 0 hours 18 minutes 50 seconds Findings: The perianal and digital rectal examinations were normal. The entire examined colon appeared normal on direct and retroflexion views. Impression: - The entire examined colon is normal on direct and retroflexion views. - No specimens collected. Recommendation: - Discharge patient to home. - Resume previous diet. - Continue present medications. - Repeat colonoscopy in 10 years for screening purposes. - Return to physician orthopedic physician assistant in 1 week. Procedure Code(s): --- Professional --- 47581, Colonoscopy, flexible; diagnostic, including collection of specimen(s) by brushing or washing, when performed (separate procedure) CPT copyright 2017 [employer]. All rights reserved. The codes documented in this report are preliminary and upon dragline oiler review may be revised to meet current compliance requirements. Isiah Whittington MD 08/28/2018 7:15:31 AM This report has been signed electronically. Number of Addenda: 0 Note Initiated On: 08/28/2018 6:45 AM 08/28/18 0715 Date Isiah Whittington MD Cosigner Signature: Date (if indicated) CC: Isiah Whittington MD; Kevin Mai MD Date Dictated: 08/28/18 0645 Date Transcribed: Hairspring Ii Inspector: JIGAR Signed OPERATIVE REPORT - Observed: 08/28/2018 Status: F Source: [facility] 7:[address] [facility] REPOSITORY [facility] Medical Records Department [address] [place] [address] [place] [address] Operative Report - Endoscopy MR#: [id number] Acct: [id number] Name: EVAN FLORES Rep #: [id number] : 1945 73 From: Isiah Whittington MD PCP: Kevin Mai MD Status: [facility] Patient Name: Evan Flores Procedure Date: 08/28/2018 6:25 AM Date of : 1945 Age: 73 Procedure: Upper GI endoscopy Indications: Follow-up of gastro-esophageal reflux disease Providers: Isiah Whittington MD Referring MD: Isiah Whittington MD Medicines: Monitored Anesthesia Care Patient Profile: This is a 73 year old male. Refer to note in patient chart for documentation of history and physical. Complications: No immediate complications. Procedure: Pre-Anesthesia Assessment: - Prior to the procedure, a History and Physical was performed, and patient medications and allergies were reviewed. The patient is competent. The risks and benefits of the procedure and the sedation options and risks were discussed with the patient. All questions were answered and informed consent was obtained. Patient identification and proposed procedure were verified by the physician, the nurse and the anesthesiologist in the procedure room. Mental Status Examination: alert and oriented. Airway Examination: normal oropharyngeal airway and neck mobility. Respiratory Examination: clear to auscultation. CV Examination: normal. Prophylactic Antibiotics: The patient does not require prophylactic antibiotics. Prior Anticoagulants: The patient has taken no previous anticoagulant or antiplatelet agents. ASA Grade Assessment: III - A patient with severe systemic disease. After reviewing the risks and benefits, the patient was deemed in satisfactory condition to undergo the procedure. The anesthesia plan was to use monitored anesthesia care (MAC). Immediately prior to administration of medications, the patient was re-assessed for adequacy to receive sedatives. The heart rate, respiratory rate, oxygen saturations, blood pressure, adequacy of pulmonary ventilation, and response to care were monitored throughout the procedure. The physical status of the patient was re-assessed after the procedure. After obtaining informed consent, the endoscope was passed under direct vision. Throughout the procedure, the patient's blood pressure, pulse, and oxygen saturations were monitored continuously. The gastroscope was introduced through the mouth, and advanced to the jejunum. The upper GI endoscopy was accomplished without difficulty. The patient tolerated the procedure well. Scope In: 6:38:00 AM Scope Out: 6:43:00 AM Total Procedure Duration Time 0 hours 5 minutes 0 seconds Findings: The examined jejunum was normal. The examined duodenum was normal. Localized mild inflammation characterized by erosions and erythema was found in the gastric antrum. Biopsies were taken with a cold forceps for histology. Biopsies were taken with a cold forceps for Helicobacter pylori testing using PyloriTek test. Biopsies were taken with a cold forceps for histology. The lower third of the esophagus was normal. Biopsies were taken with a cold forceps for histology. Mild inflammation characterized by erythema was found in the middle third of the esophagus. Biopsies were taken with a cold forceps for histology. Impression: - Normal examined jejunum. - Normal examined duodenum. - Gastritis. Biopsied. - Normal lower third of esophagus. Biopsied. - Esophageal mucosal changes were present, including erythema. Findings are suggestive of inflammation. Biopsied. Recommendation: - Return to physician orthopedic physician assistant in 1 week. - Continue present medications. Procedure Code(s): --- Professional --- 94590, Esophagogastroduodenoscopy, flexible, transoral; with biopsy, single or multiple CPT copyright 2017 [employer]. All rights reserved. The codes documented in this report are preliminary and upon dragline oiler review may be revised to meet current compliance requirements. Isiah Whittington MD 08/28/2018 7:13:52 AM This report has been signed electronically. Number of Addenda: 0 Note Initiated On: 08/28/2018 6:25 AM 08/28/18 0713 Date Isiah Whittington MD Cosigner Signature: Date (if indicated) CC: Isiah Whittington MD; Kevin Mai MD Date Dictated: 08/28/18 0625 Date Transcribed: Hairspring Ii Inspector: JIGAR Signed HISTORY AND PHYSICAL Observed: 08/28/2018 Status: F Source: [place] [facility] 6:[address] [facility] REPOSITORY [facility] Medical Records Department [address] [place] [address] [place] [address] History and Physical 08/28/18 0600 MR#: [id number] Acct: [id number] Name: EVAN FLORES Rep #: [id number] : 1945 73 From: Isiah Whittington MD PCP: Kevin Mai MD Status: [facility] Location: [place] [address] History and Physical Date of Admission: 08/28/18 HISTORY AND PHYSICAL Evan Flores 1945 REFERRING PHYSICIAN: Kevin Mai MD CHIEF COMPLAINT: colon/EGD consult HPI: The patient is a 73 year old male due for screening colonoscopy, states last was in 2006. Evan notes no history of colon complaints. Specifically he denies any change in bowel habits, weight changes, blood in stools, black tarry stools or abdominal pain. He denies a family history of colon cancer. Patient notes a long-standing history of acid reflux for which he is maintained on a PPI. He notes he had EGD at the time of his last colonoscopy and would like to have this performed again since he still has symptomatic reflux issues. The patient is being seen by me today at the request of Dr. Mai for my opinion and advice regarding screening colonoscopy and EGD. Patient's past medical history is significant for coronary artery disease, idiopathic pulmonary fibrosis, chronic hypoxemic respiratory failure, chronic kidney disease, monoclonal gammopathy, osteoporosis. He has a LAD drug-eluting stent and is maintained on Plavix and aspirin, follows with Dr. Alejandro. Most recent cardiology note from 07/08/18 is reviewed, per Dr. Alejandro: There is no contraindication to colonoscopy from the cardiac point of view, but attention to respiratory status will be essential. Patient follows with Dr. Arango in pulmonology and goes to [place] for pulmonary rehabilitation. He follows with Dr. Mai for his chronic medical conditions. Patient wishes to have his endoscopy completed locally at [facility]. He denies any problems with sedation in the past. c PAST MEDICAL HISTORY c PAST MEDICAL HISTORY Diagnosis Date Back pain lower lumbar pain Concussion 02/2011 AND 09/2011 Gammopathy, 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 GERD ([place] roesophageal reflux disease) HTN (hypertension) Hyperglycemia IPF (idiopathic pu lmonary fibrosis) (HCC) diagnosed December 2013 Renal insufficiency c PAST SURGICAL HISTORY c CURRENT MEDICATIONS ALLERGIES: Patient has no known allergies. PERSONAL HISTORY: c SOCIAL HISTORY c Social History Marital status: Single Spouse name: Years of education: Number of children: 0 Social History Main Topics Smo [place] status: Never Smoker Smokele ss tobacco: Never Used Alcohol use: Yes 6.0 - 16.5 oz/week Cans of Beer (12oz): 2, Mixed Drinks: 2 - 3 per week Comment: ocas Drug use: No Sexual activity: No FAMILY HISTORY: c FAMILY HISTORY c FAMILY HISTORY Problem Relation Age of Onset Diabetes Mother Hypertension Mother Heart Mother heart failure other (pulmonary fibrosis) Mother sister as w ell Hypertension Father Seizures Father COPD Father other (pulmonary fibosis) Sister lung disease,lung transplant Heart Brother [place], s/p stent other (Lung Disease) Brother REVIEW OF SYMPTOMS: The review of systems data was entered by the nurse and reviewed by me Nursing Notes: Elham Cervantes LPN 07/14/2018 11:08 AM Signed REVIEW OF SYSTEMS: General: The patient denies fatigue, denies weight loss, denies weight gain, denies feeling hot, and denies feelings of cold. Eyes: The patient denies glaucoma, denies eye injury/surgery, wears glasses or contacts. Ear/Nose/Throat: The patient denies allergies, denies hayfever, denies ear infections, and denies bloody noses. Cardiovascular: The patient denies chest pain, denies heart disease, NOTES high blood pressure,NOTES cardiac stent, denies prior heart attack, denies irregular heart beat, NOTES high cholesterol, denies poor circulation, denies heart failure, other cardiac issues, denies claudication, denies cold feet, denies peripheral arterial stent. Respiratory: The patient denies tuberculosis, denies pneumonia, denies frequent cough, denies pulmonary embolism, NOTES shortness of breath, and denies coughing up blood. Gastrointestinal: The patient denies difficulty swallowing, NOTES acid reflux, denies ulcers, denies vomiting, denies jaundice/hepatitis, denies gallbladder problems, denies black or tarry stools, denies hemorrhoids, denies bleeding from rectum, denies diverticulitis, denies constipation, denies diarrhea, denies loss of stool control, and denies hernias. Kidney/Bladder: The patient denies kidney stones, denies urine infections, and denies bloody urine. Skin: The patient denies a history of skin cancer, denies bleeding/changing moles, and denies a history of skin rash. Neurologic: The patient denies a history of epilepsy/convulsions, denies headaches, denies head/spinal injuries, and denies stroke/TIA. Psychiatric: The patient denies psychiatric medications, denies depression, and denies voices, denies substance abuse. Endocrine: The patient NOTES thyroid disorders, denies diabetes, and denies hormonal problems. Hematologic: The patient denies a history of bruising, denies bleeding, and denies anemia, denies blood clots. Infections: The patient NOTES a history of measles and mumps, denies rheumatic fever, and denies sexually transmitted diseases. Musculoskeletal: The patient denies back pain/injury, NOTES back problems, NOTES sciatica, denies knee/foot trouble, denies arthritis, or denies gout. When was patient's last Mammogram screening? N/A Last Colonoscopy: 2006 Elham Cervantes LPN I have confirmed and edited as necessary, the PFSH and ROS obtained by others. PHYSICAL EXAMINATION: General: The patient is 73 year old male, well nourished, well hydrated in no acute distress. The patient is oriented to time, place, and person. VITALS: Blood pressure 134/68, pulse 84, weight 80.7 kg (178 lb). Body mass index is 23.97 kg/m . HEENT: Normal cephalic, ataumatic, pupils are equally round, sclera are anicteric, mucous membranes are moist, oropharynx is clear. Neck has no masses, asymmetry or lymphadenopathy. Respiratory: Clear to auscultation and percussion. Normal respiratory excursion and pattern. Cardiac: Examination is regular rate and rhythm. Normal S1/S2. +ANGELITA Abdominal exam: Soft, nontender, with no palpable masses. No hepatosplenomegaly. No palpable hernias. Rectal exam: exam deferred Extremities: no clubbing, cyanosis or edema. No adenopathy. Other: LABORATORY VALUES: As Noted RADIOLOGIC STUDIES: As Noted Assessment IMPRESSION: encounter for screening colonoscopy. Acid reflux- would plan for EGD in addition to colonoscopy. Idiopathic pulmonary fibrosis, on supplemental oxygen-will message Dr. Arango to ensure no pulmonary concerns for elective endoscopy PLAN: Pending pulmonology clearance, would plan for EGD and colonoscopy to be performed under Monitored Anesthetic Care in hospital setting. We discussed the risks and benefits of the planned endoscopy. I have informed the patient that complications can occur including failure to complete the endoscopy and perforation. The patient had the opportunity to ask questions concerning the planned endoscopy. My staff has also explained the procedure to the patient in understandable terms and has given the patient printed material concerning the procedure. The patient freely consents to surgery. I plan to use golytely bowel preparation for endoscopy. Reviewed importance of good hydration before, during and after bowel preparation. Consider fluid bolus day of endoscopy due to history of elevated creatinine-will defer to Dr. Whittington Patient instructed to REMAIN ON his anticoagulation for the procedure The patient has medical comorbidities for which I plan to perform the procedure under monitored anesthetic care. Patient is requesting to have procedure done locally at [facility] Diagnoses: (Z12.11) Encounter for screening for malignant neoplasm of colon (primary encounter diagnosis) (K21.9) Gastroesophageal reflux disease, esophagitis presence not specified (I25.10) Coronary artery disease involving tyonek coronary artery of tyonek heart without angina pectoris (J84.112) IPF (idiopathic pulmonary fibrosis) (HCC) (J96.11) Chronic hypoxemic respiratory failure (HCC) My findings have been communicated to Dr. Mai via shared medical record. This note will be forwarded to Dr. Kevin Mai MD. Return to Clinic: The patient is instructed to follow-up with me 1 week post operatively. Patient verbalized understanding of all above and agreed with the plan Digna Stokes PA-C 08/28/18 0602 <Electronically signed by Isiah Whittington MD> Date Isiah Whittington MD [facility] Signature: Date (if applicable) CC: Isiah Whittington MD; Kevin Mai MD Signed GASTRIC BIOPSY Observed: 08/28/2018 Status: F Source: [place] 12:[address] [facility] REPOSITORY Patient: EVAN FLORES : 1945 (73/M) Acct Num: [id number] Phys: Pk AVILES,Isiah Unit Num: [id number] Loc: EN Specimen: [id number] Received: 08/28/18 - 1050 Spec Type: Gastric Bx TISSUES 1 TISSUES: A. Gastric mucous membrane B. Esophageal mucous membrane C. Esophageal mucous membrane COMMENT A. The results of immunohistochemistry for Helicobacter pylori will be reported separately ([id number]). Correlation with clinical, endoscopic findings and appropriate follow up are necessary. GROSS DESCRIPTION A - Received in fixative is one container labeled with the patient's name and designated antral biopsy. The specimen consists of one irregular fragment of light sanz soft tissue that measures 0.3 x 0.2 x 0.1 cm. The specimen is totally submitted in one cassette. B - Received in fixative is one container labeled with the patient's name and designated distal esophageal biopsy. The specimen consists of one irregular fragment of light sanz soft tissue that measures 0.4 x 0.3 x 0.1 cm. The specimen is totally submitted in one cassette. C - Received in fixative is one container labeled with the patient's name and designated mid esophageal biopsy. The specimen consists of one irregular fragment of light sanz soft tissue that measures 0.4 x 0.2 x 0.1 cm. The specimen is totally submitted in one cassette. / Sp 08/28/18 TC: CPT: 48227 x3 HEADER OPERATION: Colonoscopy, EGD ([facility]) PRE-OP DIAGNOSIS: Reflux, screening TISSUE SUBMITTED: A - Antral biopsy for pathology, B - Distal esophageal biopsy , C - Mid esophageal biopsy MICROSCOPIC DESCRIPTION Slides are reviewed. A. The specimen shows fragments of gastric mucosa with chronic inflammatory cell infiltrates in the lamina propria consisting of lymphocytes and plasma cells, consistent with mild chronic gastritis. MICROSCOPIC DIAGNOSIS A. Antral biopsy: Mild gastritis. B. Distal esophageal biopsy: A fragment of squamous epithelium with minimal chronic inflammation. C. Mid esophageal biopsy: A fragment of squamous epithelium with minimal congestion and chronic inflammation. Sp 08/29/18 Signed Omer Dorado 08/29/18 <signature on file> Performed By: #### PGASB #### [facility] [address] [place] [address]. [place], [address] IMMUNOHISTOCHEMISTRY Observed: 08/28/2018 Status: F Source: [place] 12:[address] [facility] REPOSITORY Patient: EVAN FLORES : 1945 (73/M) Acct Num: [id number] Phys: Isiah Whittington MD Unit Num: [id number] Loc: EN Specimen: [id number] Received: 08/29/18 - 1038 Spec Type: IMMUNO TISSUES 1 TISSUES: A. Stomach, NOS SPECIMEN INFORMATION: Tissue Source: A - Antral biopsy Clinical Info: Reflux, screening Specimen Number: [id number] CPT code: 09945 METHODOLOGY: Deparaffinized sections of prefer/formalin-fixed tissue or PAP/DQ stained slides are incubated with monoclonal/polyclonal antibodies/oligonucleotide probes. Localization is made via biotin free immunoperoxidase method. Appropriate controls are performed and reacted as expected. Results on target cell population are indicated in the following table: RESULTS: ANTIBODY / CLONE RESULT Block A H Pylori (polyclonal) negative These tests were developed and their performance characteristics determined by [facility]. They may not have been cleared or approved by the U.S. Food and Drug Administration. The FDA has determined that such clearance or approval is not necessary. INTERPRETATION: A. Antral biopsy: Negative for Helicobacter pylori organisms. SJ:jigar 08/29/18 PHYSICIAN AND INSTITUTION [address] [address] Signed Omer Dorado 09/01/18 <signature on file> Performed By: #### PIMM #### [facility] [address] [place] [address]. [place], [place], [id number] CNOP Observed: 08/28/2018 Status: COMPLETED Source: [place] 12:00 AM [facility] REPOSITORY Operative Note (Enc) (GENSWS) Progress Notes: Isiah Whittington MD 08/28/2018 7:59 AM Signed OPERATIVE NOTATION FOR [facility] SURGICAL PROCEDURE. August 28, 2018 Evan Flores 1945 [id number] male PROCEDURE: EGD WITH BIOPSY - [id number] and COLONOSCOPY - [id number] SURGEON: Remi Whittington M.D. 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 Isiah Whittington MD Encounter Status:Closed by ISIAH WHITTINGTON MD on 08/28/18 PROGRESS Observed: 08/26/2018 Status: COMPLETED Source: [place] 10:13 AM [facility] REPOSITORY HNO ID: [id number] Author: Angel Han (Ex Phys) [place] Service: (none) Author Type: Dryer And Washer Mechanic Type: Progress Notes Filed: 08/26/2018 10:14 AM Note Text: Patient exercised in phase 3 cardiopulmonary rehabilitation today. Patients vitals WNL. HOSP Observed: 08/26/2018 Status: COMPLETED Source: [place] 12:00 AM [facility] REPOSITORY Patient Update ([facility]) EVAN FLORES ([id number]) 1945 M Date Time Provider Department 08/26/18 ANGEL CHAVARRIA (EX PHYS) [facility] During your visit today, we recorded the following information about you: Hardik Arcos Phy 08/26/2018 10:14 AM Signed Patient exercised in phase 3 cardiopulmonary rehabilitation today. Patients vitals WNL. Allergies As of Date: 08/26/2018 (No Known Allergies) Date Reviewed: 07/15/2018 Reviewed by: Digna Townsend) - Fully Assessed Prescriptions as of 08/26/2018 Sig: AMLODIPINE 5 MG TABLET Take 1 tablet by mouth once d* CLOPIDOGREL 75 MG TABLET 75 mg. CHOLECALCIFEROL (VITAMIN D3) * VITAMIN D (CHOLECALCIFEROL) 1* PIRFENIDONE 267 MG CAPSULE ESBRIET 267 MG CAPS CHOLECALCIFEROL (VITAMIN D3) * Take one(1) tablet daily. CALCIUM CITRATE-VITAMIN D 630* Take 1 tablet by mouth once d* LEVOTHYROXINE 25 MCG TABLET Take 1 tablet by mouth once d* PANTOPRAZOLE 40 MG TABLET,DEL* Take 1 tablet by mouth once d* PRAVASTATIN 20 MG TABLET Take 1 tablet by mouth daily * ASPIRIN 81 MG TABLET,DELAYED * Take 1 tablet by mouth once d* PIRFENIDONE 267 MG CAPSULE Take three (3) capsules by mo* Problem List As Of Date 08/26/2018 Noted Resolved IPF (idiopathic pulmonary fibrosis) ([facility]) [J84.*INVALID FOR* CKD (chronic kidney disease) [N18.9] INVALID FOR* Hoarse voice quality [R49.0] INVALID FOR* GERD (gastroesophageal reflux disease) [K21.9] INVALID FOR* HTN (hypertension) [I10] INVALID FOR*11/07/2016 Gammopathy, 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 BPH (benign prostatic hyperplasia) [N40.0] INVALID FOR* Family history of ischemic heart disease [Z82.4*INVALID FOR* Coronary artery disease involving tyonek dougherty*INVALID FOR* More... 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] INVALID FOR* Acute midline low back pain [M54.5] INVALID FOR* Chronic hypoxemic respiratory failure (HCC) [J9*INVALID FOR* Pulmonary infiltrate [R91.8] INVALID FOR*05/23/2018 Abnormal weight loss [R63.4] INVALID FOR* Encounter Status:Closed by ANGEL CHAVARRIA on 08/26/18 PROGRESS Observed: 08/19/2018 Status: COMPLETED Source: [place] 10:05 AM [facility] REPOSITORY HNO ID: [id number] Author: Angel Toro Phys) Deon Service: (none) Author Type: Dryer And Washer Mechanic Type: Progress Notes Filed: 08/19/2018 10:06 AM Note Text: Patient exercised in phase 3 cardiopulmonary rehabilitation today. Patients vitals WNL. HOSP Observed: 08/19/2018 Status: COMPLETED Source: [place] 12:00 AM [facility] REPOSITORY [facility] EVAN FLORES ([id number]) 1945 M Date Time Provider Department 08/19/18 ANGEL CHAVARRIA (EX PHYS) [facility] During your visit today, we recorded the following information about you: Hardik Arcos Ph 08/19/2018 10:06 AM Signed Patient exercised in phase 3 cardiopulmonary rehabilitation today. Patients vitals WNL. Allergies As of Date: 08/19/2018 (No Known Allergies) Date Reviewed: 07/15/2018 Reviewed by: Digna Stokes (Pa) - Fully Assessed Prescriptions as of 08/19/2018 Sig: AMLODIPINE 5 MG TABLET Take 1 tablet by mouth once d* CLOPIDOGREL 75 MG TABLET 75 mg. CHOLECALCIFEROL (VITAMIN D3) * VITAMIN D (CHOLECALCIFEROL) 1* PIRFENIDONE 267 MG CAPSULE ESBRIET 267 MG CAPS CHOLECALCIFEROL (VITAMIN D3) * Take one(1) tablet daily. CALCIUM CITRATE-VITAMIN D 630* Take 1 tablet by mouth once d* LEVOTHYROXINE 25 MCG TABLET Take 1 tablet by mouth once d* PANTOPRAZOLE 40 MG TABLET,DEL* Take 1 tablet by mouth once d* PRAVASTATIN 20 MG TABLET Take 1 tablet by mouth daily * ASPIRIN 81 MG TABLET,DELAYED * Take 1 tablet by mouth once d* PIRFENIDONE 267 MG CAPSULE Take three (3) capsules by mo* Problem List As Of Date 08/19/2018 Noted Resolved IPF (idiopathic pulmonary fibrosis) (HCC) [J84.*INVALID FOR* CKD (chronic kidney disease) [N18.9] INVALID FOR* Hoarse voice quality [R49.0] INVALID FOR* GERD (gastroesophageal reflux disease) [K21.9] INVALID FOR* HTN (hypertension) [I10] INVALID FOR*11/07/2016 Gammopathy, 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 BPH (benign prostatic hyperplasia) [N40.0] INVALID FOR* Family history of ischemic heart disease [Z82.4*INVALID FOR* Coronary artery disease involving tyonek dougherty*INVALID FOR* More... 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] INVALID FOR* Acute midline low back pain [M54.5] INVALID FOR* Chronic hypoxemic respiratory failure (HCC) [J9*INVALID FOR* Pulmonary infiltrate [R91.8] INVALID FOR*05/23/2018 Abnormal weight loss [R63.4] INVALID FOR* Encounter Status:Closed by ANGEL CHAVARRIA on 08/19/18 PROGRESS Observed: 08/14/2018 Status: COMPLETED Source: [place] 10:05 AM [facility] REPOSITORY HNO ID: [id number] Author: Angel Han (Ex Phys) Deon Service: (none) Author Type: Dryer And Washer Mechanic Type: Progress Notes Filed: 08/14/2018 10:05 AM Note Text: Patient exercised in phase 3 cardiopulmonary rehabilitation today. Patients vitals WNL. HOSP Observed: 08/14/2018 Status: COMPLETED Source: [place] 12:00 AM [facility] REPOSITORY [facility] SANDRAEVAN Wright ([id number]) 1945 M Date Time Provider Department 08/14/18 ANGEL CHAVARRIA (EX PHYS) [facility] During your visit today, we recorded the following information about you: Hardik Arcos 08/14/2018 10:05 AM Signed Patient exercised in phase 3 cardiopulmonary rehabilitation today. Patients vitals WNL. Allergies As of Date: 08/14/2018 (No Known Allergies) Date Reviewed: 07/15/2018 Reviewed by: Digna Stokes (Pa) - Fully Assessed Prescriptions as of 08/14/2018 Sig: CLOPIDOGREL 75 MG TABLET 75 mg. CHOLECALCIFEROL (VITAMIN D3) * VITAMIN D (CHOLECALCIFEROL) 1* PIRFENIDONE 267 MG CAPSULE ESBRIET 267 MG CAPS CHOLECALCIFEROL (VITAMIN D3) * Take one(1) tablet daily. CALCIUM CITRATE-VITAMIN D 630* Take 1 tablet by mouth once d* LEVOTHYROXINE 25 MCG TABLET Take 1 tablet by mouth once d* PANTOPRAZOLE 40 MG TABLET,DEL* Take 1 tablet by mouth once d* PRAVASTATIN 20 MG TABLET Take 1 tablet by mouth daily * AMLODIPINE 5 MG TABLET Take 1 tablet by mouth once d* ASPIRIN 81 MG TABLET,DELAYED * Take 1 tablet by mouth once d* PIRFENIDONE 267 MG CAPSULE Take three (3) capsules by mo* Problem List As Of Date 08/14/2018 Noted Resolved IPF (idiopathic pulmonary fibrosis) (HCC) [J84.*INVALID FOR* CKD (chronic kidney disease) [N18.9] INVALID FOR* Hoarse voice quality [R49.0] INVALID FOR* GERD (gastroesophageal reflux disease) [K21.9] INVALID FOR* HTN (hypertension) [I10] INVALID FOR*11/07/2016 Gammopathy, 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 BPH (benign prostatic hyperplasia) [N40.0] INVALID FOR* Family history of ischemic heart disease [Z82.4*INVALID FOR* Coronary artery disease involving tyonek dougherty*INVALID FOR* More... 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] INVALID FOR* Acute midline low back pain [M54.5] INVALID FOR* Chronic hypoxemic respiratory failure (HCC) [J9*INVALID FOR* Pulmonary infiltrate [R91.8] INVALID FOR*05/23/2018 Abnormal weight loss [R63.4] INVALID FOR* Encounter Status:Closed by ANGEL CHAVARRIA on 08/14/18 PROGRESS Observed: 08/12/2018 Status: COMPLETED Source: [place] 10:36 AM [facility] REPOSITORY HNO ID: [id number] Author: Angel Toro Phys) Deon Service: (none) Author Type: Dryer And Washer Mechanic Type: Progress Notes Filed: 08/12/2018 10:37 AM Note Text: Patient exercised in phase 3 cardiopulmonary rehabilitation today. Patients vitals WNL. HOSP Observed: 08/12/2018 Status: COMPLETED Source: [place] 12:00 AM [facility] REPOSITORY Patient Update ([facility]) EVAN FLORES ([id number]) 1945 M Date Time Provider Department 08/12/18 ANGEL CHAVARRIA PHYS) [facility] During your visit today, we recorded the following information about you: Hardik Arcos 08/12/2018 10:37 AM Signed Patient exercised in phase 3 cardiopulmonary rehabilitation today. Patients vitals WNL. Allergies As of Date: 08/12/2018 (No Known Allergies) Date Reviewed: 07/15/2018 Reviewed by: Digna Townsend) - Fully Assessed Prescriptions as of 08/12/2018 Sig: CLOPIDOGREL 75 MG TABLET 75 mg. CHOLECALCIFEROL (VITAMIN D3) * VITAMIN D (CHOLECALCIFEROL) 1* PIRFENIDONE 267 MG CAPSULE ESBRIET 267 MG CAPS CHOLECALCIFEROL (VITAMIN D3) * Take one(1) tablet daily. CALCIUM CITRATE-VITAMIN D 630* Take 1 tablet by mouth once d* LEVOTHYROXINE 25 MCG TABLET Take 1 tablet by mouth once d* PANTOPRAZOLE 40 MG TABLET,DEL* Take 1 tablet by mouth once d* PRAVASTATIN 20 MG TABLET Take 1 tablet by mouth daily * AMLODIPINE 5 MG TABLET Take 1 tablet by mouth once d* ASPIRIN 81 MG TABLET,DELAYED * Take 1 tablet by mouth once d* PIRFENIDONE 267 MG CAPSULE Take three (3) capsules by mo* Problem List As Of Date 08/12/2018 Noted Resolved IPF (idiopathic pulmonary fibrosis) (HCC) [J84.*INVALID FOR* CKD (chronic kidney disease) [N18.9] INVALID FOR* Hoarse voice quality [R49.0] INVALID FOR* GERD (gastroesophageal reflux disease) [K21.9] INVALID FOR* HTN (hypertension) [I10] INVALID FOR*11/07/2016 Gammopathy, 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 BPH (benign prostatic hyperplasia) [N40.0] INVALID FOR* Family history of ischemic heart disease [Z82.4*INVALID FOR* Coronary artery disease involving tyonek dougherty*INVALID FOR* More... 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] INVALID FOR* Acute midline low back pain [M54.5] INVALID FOR* Chronic hypoxemic respiratory failure (HCC) [J9*INVALID FOR* Pulmonary infiltrate [R91.8] INVALID FOR*05/23/2018 Abnormal weight loss [R63.4] INVALID FOR* Encounter Status:Closed by ANGEL CHAVARRIA on 08/12/18 PROGRESS Observed: 08/07/2018 Status: COMPLETED Source: [place] 10:07 AM [facility] REPOSITORY HNO ID: [id number] Author: Angel Han (Hardik Luciano) Deon Service: (none) Author Type: Dryer And Washer Mechanic Type: Progress Notes Filed: 08/07/2018 10:08 AM Note Text: Patient exercised in phase 3 cardiopulmonary rehabilitation today. Patients vitals WNL. HOSP Observed: 08/07/2018 Status: COMPLETED Source: [place] 12:00 AM [facility] REPOSITORY Patient Update ([facility]) EVAN FLORES ([id number]) 1945 M Date Time Provider Department 08/07/18 ANGEL CHAVARRIA (EX PHYS) [facility] During your visit today, we recorded the following information about you: Hardik Arcos [facility] 08/07/2018 10:08 AM Signed Patient exercised in phase 3 cardiopulmonary rehabilitation today. Patients vitals WNL. Allergies As of Date: 08/07/2018 (No Known Allergies) Date Reviewed: 07/15/2018 Reviewed by: Digna Stokes (Pa) - Fully Assessed Prescriptions as of 08/07/2018 Sig: CLOPIDOGREL 75 MG TABLET 75 mg. CHOLECALCIFEROL (VITAMIN D3) * VITAMIN D (CHOLECALCIFEROL) 1* PIRFENIDONE 267 MG CAPSULE ESBRIET 267 MG CAPS CHOLECALCIFEROL (VITAMIN D3) * Take one(1) tablet daily. CALCIUM CITRATE-VITAMIN D 630* Take 1 tablet by mouth once d* LEVOTHYROXINE 25 MCG TABLET Take 1 tablet by mouth once d* PANTOPRAZOLE 40 MG TABLET,DEL* Take 1 tablet by mouth once d* PRAVASTATIN 20 MG TABLET Take 1 tablet by mouth daily * AMLODIPINE 5 MG TABLET Take 1 tablet by mouth once d* ASPIRIN 81 MG TABLET,DELAYED * Take 1 tablet by mouth once d* PIRFENIDONE 267 MG CAPSULE Take three (3) capsules by mo* Problem List As Of Date 08/07/2018 Noted Resolved IPF (idiopathic pulmonary fibrosis) (HCC) [J84.*INVALID FOR* CKD (chronic kidney disease) [N18.9] INVALID FOR* Hoarse voice quality [R49.0] INVALID FOR* GERD (gastroesophageal reflux disease) [K21.9] INVALID FOR* HTN (hypertension) [I10] INVALID FOR*11/07/2016 Gammopathy, 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 BPH (benign prostatic hyperplasia) [N40.0] INVALID FOR* Family history of ischemic heart disease [Z82.4*INVALID FOR* Coronary artery disease involving ty[place]k dougherty*INVALID FOR* More... 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] INVALID FOR* Acute midline low back pain [M54.5] INVALID FOR* Chronic hypoxemic respiratory failure (HCC) [J9*INVALID FOR* Pulmonary infiltrate [R91.8] INVALID FOR*05/23/2018 Abnormal weight loss [R63.4] INVALID FOR* Encounter Status:Closed by ANGEL CHAVARRIA on 08/07/18 PROGRESS Observed: 08/05/2018 Status: COMPLETED Source: [place] 9:29 AM [facility] REPOSITORY HNO ID: [id number] Author: Angel Han (Ex Phys) Deon Service: (none) Author Type: Dryer And Washer Mechanic Type: Progress Notes Filed: 08/05/2018 9:29 AM Note Text: Patient exercised in phase 3 cardiopulmonary rehabilitation today. Patients vitals WNL. HOSP Observed: 08/05/2018 Status: COMPLETED Source: [place] 12:00 AM [facility] REPOSITORY Patient Update ([facility]) EVAN FLORES ([id number]) 1945 M Date Time Provider Department 08/05/18 ANGEL CHAVARRIA (EX PHYS) [facility] During your visit today, we recorded the following information about you: Hardik Arcos Phy 08/05/2018 9:29 AM Signed Patient exercised in phase 3 cardiopulmonary rehabilitation today. Patients vitals WNL. Allergies As of Date: 08/05/2018 (No Known Allergies) Date Reviewed: 07/15/2018 Reviewed by: Digna Townsend) - Fully Assessed Prescriptions as of 08/05/2018 Sig: CLOPIDOGREL 75 MG TABLET 75 mg. CHOLECALCIFEROL (VITAMIN D3) * VITAMIN D (CHOLECALCIFEROL) 1* PIRFENIDONE 267 MG CAPSULE ESBRIET 267 MG CAPS CHOLECALCIFEROL (VITAMIN D3) * Take one(1) tablet daily. CALCIUM CITRATE-VITAMIN D 630* Take 1 tablet by mouth once d* LEVOTHYROXINE 25 MCG TABLET Take 1 tablet by mouth once d* PANTOPRAZOLE 40 MG TABLET,DEL* Take 1 tablet by mouth once d* PRAVASTATIN 20 MG TABLET Take 1 tablet by mouth daily * AMLODIPINE 5 MG TABLET Take 1 tablet by mouth once d* ASPIRIN 81 MG TABLET,DELAYED * Take 1 tablet by mouth once d* PIRFENIDONE 267 MG CAPSULE Take three (3) capsules by mo* Problem List As Of Date 08/05/2018 Noted Resolved IPF (idiopathic pulmonary fibrosis) (HCC) [J84.*INVALID FOR* CKD (chronic kidney disease) [N18.9] INVALID FOR* Hoarse voice quality [R49.0] INVALID FOR* GERD (gastroesophageal reflux disease) [K21.9] INVALID FOR* HTN (hypertension) [I10] INVALID FOR*11/07/2016 Gammopathy, 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 BPH (benign prostatic hyperplasia) [N40.0] INVALID FOR* Family history of ischemic heart disease [Z82.4*INVALID FOR* Coronary artery disease involving tyonek dougherty*INVALID FOR* More... 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] INVALID FOR* Acute midline low back pain [M54.5] INVALID FOR* Chronic hypoxemic respiratory failure (HCC) [J9*INVALID FOR* Pulmonary infiltrate [R91.8] INVALID FOR*05/23/2018 Abnormal weight loss [R63.4] INVALID FOR* Encounter Status:Closed by ANGEL CHAVARRIA on 08/05/18 PROGRESS Observed: 07/29/2018 Status: COMPLETED Source: [place] 10:24 AM [facility] REPOSITORY HNO ID: [id number] Author: Angel Han (Ex Phys) Deon Service: (none) Author Type: Dryer And Washer Mechanic Type: Progress Notes Filed: 07/29/2018 10:25 AM Note Text: Patient exercised in phase 3 cardiopulmonary rehabilitation today. Patients vitals WNL. HOSP Observed: 07/29/2018 Status: COMPLETED Source: [place] 12:00 AM [facility] REPOSITORY Patient Update (CDPLM) EVAN FLORES ([id number]) 1945 M Date Time Provider Department 07/29/18 ANGEL CHAVARRIA (EX PHYS) [facility] During your visit today, we recorded the following information about you: Hardik Arcos Ph 07/29/2018 10:25 AM Signed Patient exercised in phase 3 cardiopulmonary rehabilitation today. Patients vitals WNL. Allergies As of Date: 07/29/2018 (No Known Allergies) Date Reviewed: 07/15/2018 Reviewed by: Digna Stokes (Pa) - Fully Assessed Prescriptions as of 07/29/2018 Sig: CLOPIDOGREL 75 MG TABLET 75 mg. CHOLECALCIFEROL (VITAMIN D3) * VITAMIN D (CHOLECALCIFEROL) 1* PIRFENIDONE 267 MG CAPSULE ESBRIET 267 MG CAPS CHOLECALCIFEROL (VITAMIN D3) * Take one(1) tablet daily. CALCIUM CITRATE-VITAMIN D 630* Take 1 tablet by mouth once d* LEVOTHYROXINE 25 MCG TABLET Take 1 tablet by mouth once d* PANTOPRAZOLE 40 MG TABLET,DEL* Take 1 tablet by mouth once d* PRAVASTATIN 20 MG TABLET Take 1 tablet by mouth daily * AMLODIPINE 5 MG TABLET Take 1 tablet by mouth once d* ASPIRIN 81 MG TABLET,DELAYED * Take 1 tablet by mouth once d* PIRFENIDONE 267 MG CAPSULE Take three (3) capsules by mo* Problem List As Of Date 07/29/2018 Noted Resolved IPF (idiopathic pulmonary fibrosis) (HCC) [J84.*INVALID FOR* CKD (chronic kidney disease) [N18.9] INVALID FOR* Hoarse voice quality [R49.0] INVALID FOR* GERD (gastroesophageal reflux disease) [K21.9] INVALID FOR* HTN (hypertension) [I10] INVALID FOR*11/07/2016 Gammopathy, 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 BPH (benign prostatic hyperplasia) [N40.0] INVALID FOR* Family history of ischemic heart disease [Z82.4*INVALID FOR* Coronary artery disease involving tyonek dougherty*INVALID FOR* More... 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] INVALID FOR* Acute midline low back pain [M54.5] INVALID FOR* Chronic hypoxemic respiratory failure (HCC) [J9*INVALID FOR* Pulmonary infiltrate [R91.8] INVALID FOR*05/23/2018 Abnormal weight loss [R63.4] INVALID FOR* Encounter Status:Closed by ANGEL CHAVARRIA on 07/29/18 PROGRESS Observed: 07/24/2018 Status: COMPLETED Source: [place] 10:41 AM [facility] OTHER [place] REPOSITORY HNO ID: [id number] Author: Angel Han (Ex Phys) Deon Service: (none) Author Type: Dryer And Washer Mechanic Type: Progress Notes Filed: 07/24/2018 10:41 AM Note Text: Patient exercised in phase 3 cardiopulmonary rehabilitation today. Patients vitals WNL. HOSP Observed: 07/24/2018 Status: COMPLETED Source: [place] 12:00 AM [facility] [place] REPOSITORY [facility] SANDRAEVAN ([id number]) 1945 M Date Time Provider Department 07/24/18 ANGEL CHAVARRIA (EX PHYS) [facility] During your visit today, we recorded the following information about you: Angel Chavarria Ex Phy 07/24/2018 10:41 AM Signed Patient exercised in phase 3 cardiopulmonary rehabilitation today. Patients vitals WNL. Allergies As of Date: 07/24/2018 (No Known Allergies) Date Reviewed: 07/15/2018 Reviewed by: Digna Townsend) - Fully Assessed Prescriptions as of 07/24/2018 Sig: CLOPIDOGREL 75 MG TABLET 75 mg. CHOLECALCIFEROL (VITAMIN D3) * VITAMIN D (CHOLECALCIFEROL) 1* PIRFENIDONE 267 MG CAPSULE ESBRIET 267 MG CAPS CHOLECALCIFEROL (VITAMIN D3) * Take one(1) tablet daily. CALCIUM CITRATE-VITAMIN D 630* Take 1 tablet by mouth once d* LEVOTHYROXINE 25 MCG TABLET Take 1 tablet by mouth once d* PANTOPRAZOLE 40 MG TABLET,DEL* Take 1 tablet by mouth once d* PRAVASTATIN 20 MG TABLET Take 1 tablet by mouth daily * AMLODIPINE 5 MG TABLET Take 1 tablet by mouth once d* ASPIRIN 81 MG TABLET,DELAYED * Take 1 tablet by mouth once d* PIRFENIDONE 267 MG CAPSULE Take three (3) capsules by mo* Problem List As Of Date 07/24/2018 Noted Resolved IPF (idiopathic pulmonary fibrosis) (HCC) [J84.*INVALID FOR* CKD (chronic kidney disease) [N18.9] INVALID FOR* Hoarse voice quality [R49.0] INVALID FOR* GERD (gastroesophageal reflux disease) [K21.9] INVALID FOR* HTN (hypertension) [I10] INVALID FOR*11/07/2016 Gammopathy, 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 BPH (benign prostatic hyperplasia) [N40.0] INVALID FOR* Family history of ischemic heart disease [Z82.4*INVALID FOR* Coronary artery disease involving tyonek dougherty*INVALID FOR* More... 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] INVALID FOR* Acute midline low back pain [M54.5] INVALID FOR* Chronic hypoxemic respiratory failure (HCC) [J9*INVALID FOR* Pulmonary infiltrate [R91.8] INVALID FOR*05/23/2018 Abnormal weight loss [R63.4] INVALID FOR* Encounter Status:Closed by ANGEL CHAVARRIA on 07/24/18 PROGRESS Observed: 07/22/2018 Status: COMPLETED Source: [place] 10:24 AM [facility] REPOSITORY HNO ID: [id number] Author: Angel Chavarria (Ex Phys) Service: (none) Author Type: Dryer And Washer Mechanic Type: Progress Notes Filed: 07/22/2018 10:24 AM Note Text: Patient exercised in phase 3 cardiopulmonary rehabilitation today. Patients vitals WNL. HOSP Observed: 07/22/2018 Status: COMPLETED Source: [place] 12:00 AM [facility] REPOSITORY Patient Update (CDPLM) EVAN FLORES ([id number]) 1945 M Date Time Provider Department 07/22/18 ANGEL CHAVARRIA (HARDIK PHYS) [facility] During your visit today, we recorded the following information about you: Hardik Arcos 07/22/2018 10:24 AM Signed Patient exercised in phase 3 cardiopulmonary rehabilitation today. Patients vitals WNL. Allergies As of Date: 07/22/2018 (No Known Allergies) Date Reviewed: 07/15/2018 Reviewed by: Digna Stokes (Pa) - Fully Assessed Prescriptions as of 07/22/2018 Sig: CLOPIDOGREL 75 MG TABLET 75 mg. CHOLECALCIFEROL (VITAMIN D3) * VITAMIN D (CHOLECALCIFEROL) 1* PIRFENIDONE 267 MG CAPSULE ESBRIET 267 MG CAPS CHOLECALCIFEROL (VITAMIN D3) * Take one(1) tablet daily. CALCIUM CITRATE-VITAMIN D 630* Take 1 tablet by mouth once d* LEVOTHYROXINE 25 MCG TABLET Take 1 tablet by mouth once d* PANTOPRAZOLE 40 MG TABLET,DEL* Take 1 tablet by mouth once d* PRAVASTATIN 20 MG TABLET Take 1 tablet by mouth daily * AMLODIPINE 5 MG TABLET Take 1 tablet by mouth once d* ASPIRIN 81 MG TABLET,DELAYED * Take 1 tablet by mouth once d* PIRFENIDONE 267 MG CAPSULE Take three (3) capsules by mo* Problem List As Of Date 07/22/2018 Noted Resolved IPF (idiopathic pulmonary fibrosis) (HCC) [J84.*INVALID FOR* CKD (chronic kidney disease) [N18.9] INVALID FOR* Hoarse voice quality [R49.0] INVALID FOR* GERD (gastroesophageal reflux disease) [K21.9] INVALID FOR* HTN (hypertension) [I10] INVALID FOR*11/07/2016 Gammopathy, 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 BPH (benign prostatic hyperplasia) [N40.0] INVALID FOR* Family history of ischemic heart disease [Z82.4*INVALID FOR* Coronary artery disease involving tyonek dougherty*INVALID FOR* More... 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] INVALID FOR* Acute midline low back pain [M54.5] INVALID FOR* Chronic hypoxemic respiratory failure (HCC) [J9*INVALID FOR* Pulmonary infiltrate [R91.8] INVALID FOR*05/23/2018 Abnormal weight loss [R63.4] INVALID FOR* Encounter Status:Closed by ANGEL CHAVARRIA on 07/22/18 PROGRESS Observed: 07/17/2018 Status: COMPLETED Source: [place] 10:05 AM [facility] REPOSITORY HNO ID: [id number] Author: Angel Han (Ex Phys) Deon Service: (none) Author Type: Dryer And Washer Mechanic Type: Progress Notes Filed: 07/17/2018 10:05 AM Note Text: Patient exercised in phase 3 cardiopulmonary rehabilitation today. Patients vitals WNL. HOSP Observed: 07/17/2018 Status: COMPLETED Source: [place] 12:00 AM [facility] REPOSITORY [facility] EVAN FLORES ([id number]) 1945 M Date Time Provider Department 07/17/18 ANGEL CHAVARRIA (EX PHYS) [facility] During your visit today, we recorded the following information about you: Hardik Arcos 07/17/2018 10:05 AM Signed Patient exercised in phase 3 cardiopulmonary rehabilitation today. Patients vitals WNL. Allergies As of Date: 07/17/2018 (No Known Allergies) Date Reviewed: 07/15/2018 Reviewed by: Digna Stokes (Pa) - Fully Assessed Prescriptions as of 07/17/2018 Sig: CLOPIDOGREL 75 MG TABLET 75 mg. CHOLECALCIFEROL (VITAMIN D3) * VITAMIN D (CHOLECALCIFEROL) 1* PIRFENIDONE 267 MG CAPSULE ESBRIET 267 MG CAPS CHOLECALCIFEROL (VITAMIN D3) * Take one(1) tablet daily. CALCIUM CITRATE-VITAMIN D 630* Take 1 tablet by mouth once d* LEVOTHYROXINE 25 MCG TABLET Take 1 tablet by mouth once d* PANTOPRAZOLE 40 MG TABLET,DEL* Take 1 tablet by mouth once d* PRAVASTATIN 20 MG TABLET Take 1 tablet by mouth daily * AMLODIPINE 5 MG TABLET Take 1 tablet by mouth once d* ASPIRIN 81 MG TABLET,DELAYED * Take 1 tablet by mouth once d* PIRFENIDONE 267 MG CAPSULE Take three (3) capsules by mo* Problem List As Of Date 07/17/2018 Noted Resolved IPF (idiopathic pulmonary fibrosis) (HCC) [J84.*INVALID FOR* CKD (chronic kidney disease) [N18.9] INVALID FOR* Hoarse voice quality [R49.0] INVALID FOR* GERD (gastroesophageal reflux disease) [K21.9] INVALID FOR* HTN (hypertension) [I10] INVALID FOR*11/07/2016 Gammopathy, 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 BPH (benign prostatic hyperplasia) [N40.0] INVALID FOR* Family history of ischemic heart disease [Z82.4*INVALID FOR* Coronary artery disease involving tyonek dougherty*INVALID FOR* More... 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] INVALID FOR* Acute midline low back pain [M54.5] INVALID FOR* Chronic hypoxemic respiratory failure (HCC) [J9*INVALID FOR* Pulmonary infiltrate [R91.8] INVALID FOR*05/23/2018 Abnormal weight loss [R63.4] INVALID FOR* Encounter Status:Closed by ANGEL CHAVARRIA on 07/17/18 PROGRESS Observed: 07/15/2018 Status: COMPLETED Source: [place] 10:22 AM [facility] REPOSITORY HNO ID: [id number] Author: Angel Chavarria (Ex Phys) Service: (none) Author Type: Dryer And Washer Mechanic Type: Progress Notes Filed: 07/15/2018 10:22 AM Note Text: Patient exercised in phase 3 cardiopulmonary rehabilitation today. Patients vitals WNL. HOSP Observed: 07/15/2018 Status: COMPLETED Source: [place] 12:00 AM [facility] REPOSITORY Patient [facility] EVAN FLORES ([id number]) 1945 M Date Time Provider Department 07/15/18 ANGEL CHAVARRIAEX PHYS) [facility] During your visit today, we recorded the following information about you: Hardik Arcos Ph 07/15/2018 10:22 AM Signed Patient exercised in phase 3 cardiopulmonary rehabilitation today. Patients vitals WNL. Allergies As of Date: 07/15/2018 (No Known Allergies) Date Reviewed: 07/14/2018 Reviewed by: Elham Cervantes LPN - Fully Assessed Prescriptions as of 07/15/2018 Sig: CLOPIDOGREL 75 MG TABLET 75 mg. CHOLECALCIFEROL (VITAMIN D3) * VITAMIN D (CHOLECALCIFEROL) 1* PIRFENIDONE 267 MG CAPSULE ESBRIET 267 MG CAPS CHOLECALCIFEROL (VITAMIN D3) * Take one(1) tablet daily. CALCIUM CITRATE-VITAMIN D 630* Take 1 tablet by mouth once d* LEVOTHYROXINE 25 MCG TABLET Take 1 tablet by mouth once d* PANTOPRAZOLE 40 MG TABLET,DEL* Take 1 tablet by mouth once d* PRAVASTATIN 20 MG TABLET Take 1 tablet by mouth daily * AMLODIPINE 5 MG TABLET Take 1 tablet by mouth once d* ASPIRIN 81 MG TABLET,DELAYED * Take 1 tablet by mouth once d* PIRFENIDONE 267 MG CAPSULE Take three (3) capsules by mo* Problem List As Of Date 07/15/2018 Noted Resolved IPF (idiopathic pulmonary fibrosis) (HCC) [J84.*INVALID FOR* CKD (chronic kidney disease) [N18.9] INVALID FOR* Hoarse voice quality [R49.0] INVALID FOR* GERD (gastroesophageal reflux disease) [K21.9] INVALID FOR* HTN (hypertension) [I10] INVALID FOR*11/07/2016 Gammopathy, 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 BPH (benign prostatic hyperplasia) [N40.0] INVALID FOR* Family history of ischemic heart disease [Z82.4*INVALID FOR* Coronary artery disease involving tyonek dougherty*INVALID FOR* More... 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] INVALID FOR* Acute midline low back pain [M54.5] INVALID FOR* Chronic hypoxemic respiratory failure (HCC) [J9*INVALID FOR* Pulmonary infiltrate [R91.8] INVALID FOR*05/23/2018 Abnormal weight loss [R63.4] INVALID FOR* Encounter Status:Closed by ANGEL CHAVARRIA on 07/15/18 PROGRESS Observed: 07/14/2018 Status: COMPLETED Source: [place] 11:25 AM [facility] [place] REPOSITORY [facility] ID: [id number] Author: Digna Stokes (Pa) Service: (none) Author Type: Physician Environmental Services Project Manager Type: Progress Notes Filed: 07/15/2018 4:28 PM Note Text: HISTORY AND PHYSICAL Evan Flores 1945 REFERRING PHYSICIAN: Kevin Mai MD CHIEF COMPLAINT: colon/EGD consult HPI: The patient is a 73 year old male due for screening colonoscopy, states last was in 2006. Evan notes no history of colon complaints. Specifically he denies any change in bowel habits, weight changes, blood in stools, black tarry stools or abdominal pain. He denies a family history of colon cancer. Patient notes a long-standing history of acid reflux for which he is maintained on a PPI. He notes he had EGD at the time of his last colonoscopy and would like to have this performed again since he still has symptomatic reflux issues. The patient is being seen by me today at the request of Dr. Mai for my opinion and advice regarding screening colonoscopy and EGD. Patient's past medical history is significant for coronary artery disease, idiopathic pulmonary fibrosis, chronic hypoxemic respiratory failure, chronic kidney disease, monoclonal gammopathy, osteoporosis. He has a LAD drug-eluting stent and is maintained on Plavix and aspirin, follows with Dr. Alejandro. Most recent cardiology note from 07/08/18 is reviewed, per Dr. Alejandro: There is no contraindication to colonoscopy from the cardiac point of view, but attention to respiratory status will be essential. Patient follows with Dr. Arango in pulmonology and goes to [place] for pulmonary rehabilitation. He follows with Dr. Mai for his chronic medical conditions. Patient wishes to have his endoscopy completed locally at [facility]. He denies any problems with sedation in the past. PAST MEDICAL HISTORY Diagnosis Date - Back pain lower lumbar pain - Concussion 02/2011 AND 09/2011 - Gammopathy, 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 - GERD (gastroesophageal reflux disease) - HTN (hypertension) - Hyperglycemia - IPF (idiopathic pulmonary fibrosis) (HCC) diagnosed December 2013 - Renal insufficiency PAST SURGICAL HISTORY Procedure Laterality Date - INGUINAL HERNIA REPAIR HX Right - LUNG BIOPSY HX 03/2014 - PAST SURGICAL HISTORY OF cardiac stent x 1 Current Outpatient Prescriptions: clopidogrel (PLAVIX) 75 mg tablet 75 mg. cholecalciferol (VITAMIN D3) 1,000 unit tab tablet VITAMIN D (CHOLECALCIFEROL) 1000 UNIT TABS pirfenidone (ESBRIET) 267 mg capsule ESBRIET 267 MG CAPS Cholecalciferol, Vitamin D3, (VITAMIN D-3) 2,000 unit cap Take one(1) tablet daily. Calcium Citrate-Vitamin D3 630-400 mg-unit Take 1 tablet by mouth once daily. levothyroxine (SYNTHROID) 25 mcg tablet Take 1 tablet by mouth once daily. Take on empty stomach. For thyroid. pantoprazole DR (PROTONIX) 40 mg tablet Take 1 tablet by mouth once daily. pravastatin (PRAVACHOL) 20 mg tablet Take 1 tablet by mouth daily at bedtime. amLODIPine (NORVASC) 5 mg tablet Take 1 tablet by mouth once daily. aspirin, enteric coated (ECOTRIN LOW STRENGTH) 81 mg EC tablet Take 1 tablet by mouth once daily. pirfenidone (ESBRIET) 267 mg capsule Take three (3) capsules by mouth three (3) times daily. No current facility-administered medications for this visit. ALLERGIES: Patient has no known allergies. PERSONAL HISTORY: Social History Marital status: Single Spouse name: Years of education: Number of children: 0 Social History Main Topics Smoking status: Never Smoker Smokeless tobacco: Never Used Alcohol use: Yes 6.0 - 16.5 oz/week Cans of Beer (12oz): 2, Mixed Drinks: 2 - 3 per week Comment: ocas Drug use: No Sexual activity: No FAMILY HISTORY: FAMILY HISTORY Problem Relation Age of Onset - Diabetes Mother - Hypertension Mother - Heart Mother heart failure - other (pulmonary fibrosis) Mother sister as well - Hypertension Father - Seizures Father - COPD Father - other (pulmonary fibosis) Sister lung disease,lung transplant - Heart Brother [place], s/p stent - other (Lung Disease) Brother REVIEW OF SYMPTOMS: The review of systems data was entered by the nurse and reviewed by me Nursing Notes: Elham Cervantes LPN 07/14/2018 11:08 AM Signed REVIEW OF SYSTEMS: General: The patient denies fatigue, denies weight loss, denies weight gain, denies feeling hot, and denies feelings of cold. Eyes: The patient denies glaucoma, denies eye injury/surgery, wears glasses or contacts. Ear/Nose/Throat: The patient denies allergies, denies hayfever, denies ear infections, and denies bloody noses. Cardiovascular: The patient denies chest pain, denies heart disease, NOTES high blood pressure,NOTES cardiac stent, denies prior heart attack, denies irregular heart beat, NOTES high cholesterol, denies poor circulation, denies heart failure, other cardiac issues, denies claudication, denies cold feet, denies peripheral arterial stent. Respiratory: The patient denies tuberculosis, denies pneumonia, denies frequent cough, denies pulmonary embolism, NOTES shortness of breath, and denies coughing up blood. Gastrointestinal: The patient denies difficulty swallowing, NOTES acid reflux, denies ulcers, denies vomiting, denies jaundice/hepatitis, denies gallbladder problems, denies black or tarry stools, denies hemorrhoids, denies bleeding from rectum, denies diverticulitis, denies constipation, denies diarrhea, denies loss of stool control, and denies hernias. Kidney/Bladder: The patient denies kidney stones, denies urine infections, and denies bloody urine. Skin: The patient denies a history of skin cancer, denies bleeding/changing moles, and denies a history of skin rash. Neurologic: The patient denies a history of epilepsy/convulsions, denies headaches, denies head/spinal injuries, and denies stroke/TIA. Psychiatric: The patient denies psychiatric medications, denies depression, and denies voices, denies substance abuse. Endocrine: The patient NOTES thyroid disorders, denies diabetes, and denies hormonal problems. Hematologic: The patient denies a history of bruising, denies bleeding, and denies anemia, denies blood clots. Infections: The patient NOTES a history of measles and mumps, denies rheumatic fever, and denies sexually transmitted diseases. Musculoskeletal: The patient denies back pain/injury, NOTES back problems, NOTES sciatica, denies knee/foot trouble, denies arthritis, or denies gout. When was patient's last Mammogram screening? N/A Last Colonoscopy: 2006 Elham Cervantes LPN I have confirmed and edited as necessary, the PFSH and ROS obtained by others. PHYSICAL EXAMINATION: General: The patient is 73 year old male, well nourished, well hydrated in no acute distress. The patient is oriented to time, place, and person. VITALS: Blood pressure 134/68, pulse 84, weight 80.7 kg (178 lb). Body mass index is 23.97 kg/m?. HEENT: Normal cephalic, ataumatic, pupils are equally round, sclera are anicteric, mucous membranes are moist, oropharynx is clear. Neck has no masses, asymmetry or lymphadenopathy. Respiratory: Clear to auscultation and percussion. Normal respiratory excursion and pattern. Cardiac: Examination is regular rate and rhythm. Normal S1/S2. +ANGELITA Abdominal exam: Soft, nontender, with no palpable masses. No hepatosplenomegaly. No palpable hernias. Rectal exam: exam deferred Extremities: no clubbing, cyanosis or edema. No adenopathy. Other: LABORATORY VALUES: As Noted RADIOLOGIC STUDIES: As Noted Assessment IMPRESSION: encounter for screening colonoscopy. Acid reflux- would plan for EGD in addition to colonoscopy. Idiopathic pulmonary fibrosis, on supplemental oxygen-will message Dr. Arango to ensure no pulmonary concerns for elective endoscopy PLAN: Pending pulmonology clearance, would plan for EGD and colonoscopy to be performed under [facility] in hospital setting. We discussed the risks and benefits of the planned endoscopy. I have informed the patient that complications can occur including failure to complete the endoscopy and perforation. The patient had the opportunity to ask questions concerning the planned endoscopy. My staff has also explained the procedure to the patient in understandable terms and has given the patient printed material concerning the procedure. The patient freely consents to surgery. I plan to use golytely bowel preparation for endoscopy. Reviewed importance of good hydration before, during and after bowel preparation. Consider fluid bolus day of endoscopy due to history of elevated creatinine-will defer to Dr. Whittington Patient instructed to REMAIN ON his anticoagulation for the procedure The patient has medical comorbidities for which I plan to perform the procedure under monitored anesthetic care. Patient is requesting to have procedure done locally at [facility] Diagnoses: (Z12.11) Encounter for screening for malignant neoplasm of colon (primary encounter diagnosis) (K21.9) Gastroesophageal reflux disease, esophagitis presence not specified (I25.10) Coronary artery disease involving tyonek coronary artery of tyonek heart without angina pectoris (J84.112) IPF (idiopathic pulmonary fibrosis) (HCC) (J96.11) Chronic hypoxemic respiratory failure (HCC) My findings have been communicated to Dr. Mai via shared medical record. This note will be forwarded to Dr. Kevin Mai MD. Return to Clinic: The patient is instructed to follow-up with me 1 week post operatively. Patient verbalized understanding of all above and agreed with the plan MIKE Bardales Observed: 07/14/2018 Status: COMPLETED Source: [place] 10:00 AM [facility] [place] REPOSITORY Office Visit (GENSWS) EVAN FLORES ([id number]) 1945 M Date Time Provider Department 07/14/18 10:00 AM DIGNA STOKES (PA) During your visit today, we recorded the following information about you: Pulse Blood pressure Weight 84/minute 134/68 80.7 kg Elham Cervantes DRE 07/14/2018 11:08 AM Signed REVIEW OF SYSTEMS: General: The patient denies fatigue, denies weight loss, denies weight gain, denies feeling hot, and denies feelings of cold. Eyes: The patient denies glaucoma, denies eye injury/surgery, wears glasses or contacts. Ear/Nose/Throat: The patient denies allergies, denies hayfever, denies ear infections, and denies bloody noses. Cardiovascular: The patient denies chest pain, denies heart disease, NOTES high blood pressure,NOTES cardiac stent, denies prior heart attack, denies irregular heart beat, NOTES high cholesterol, denies poor circulation, denies heart failure, other cardiac issues, denies claudication, denies cold feet, denies peripheral arterial stent. Respiratory: The patient denies tuberculosis, denies pneumonia, denies frequent cough, denies pulmonary embolism, NOTES shortness of breath, and denies coughing up blood. Gastrointestinal: The patient denies difficulty swallowing, NOTES acid reflux, denies ulcers, denies vomiting, denies jaundice/hepatitis, denies gallbladder problems, denies black or tarry stools, denies hemorrhoids, denies bleeding from rectum, denies diverticulitis, denies constipation, denies diarrhea, denies loss of stool control, and denies hernias. Kidney/Bladder: The patient denies kidney stones, denies urine infections, and denies bloody urine. Skin: The patient denies a history of skin cancer, denies bleeding/changing moles, and denies a history of skin rash. Neurologic: The patient denies a history of epilepsy/convulsions, denies headaches, denies head/spinal injuries, and denies stroke/TIA. Psychiatric: The patient denies psychiatric medications, denies depression, and denies voices, denies substance abuse. Endocrine: The patient NOTES thyroid disorders, denies diabetes, and denies hormonal problems. Hematologic: The patient denies a history of bruising, denies bleeding, and denies anemia, denies blood clots. Infections: The patient NOTES a history of measles and mumps, denies rheumatic fever, and denies sexually transmitted diseases. Musculoskeletal: The patient denies back pain/injury, NOTES back problems, NOTES sciatica, denies knee/foot trouble, denies arthritis, or denies gout. When was patient's last Mammogram screening? N/A Last Colonoscopy: 2006 Elham Stokes PA-C 07/15/2018 4:28 PM Signed HISTORY AND PHYSICAL Evan Wright Sandra 1945 REFERRING PHYSICIAN: Kevin Mai MD CHIEF COMPLAINT: colon/EGD consult HPI: The patient is a 73 year old male due for screening colonoscopy, states last was in 2006. Evan notes no history of colon complaints. Specifically he denies any change in bowel habits, weight changes, blood in stools, black tarry stools or abdominal pain. He denies a family history of colon cancer. Patient notes a long-standing history of acid reflux for which he is maintained on a PPI. He notes he had EGD at the time of his last colonoscopy and would like to have this performed again since he still has symptomatic reflux issues. The patient is being seen by me today at the request of Dr. Mai for my opinion and advice regarding screening colonoscopy and EGD. Patient's past medical history is significant for coronary artery disease, idiopathic pulmonary fibrosis, chronic hypoxemic respiratory failure, chronic kidney disease, monoclonal gammopathy, osteoporosis. He has a LAD drug-eluting stent and is maintained on Plavix and aspirin, follows with Dr. Alejandro. Most recent cardiology note from 07/08/18 is reviewed, per Dr. Alejandro: There is no contraindication to colonoscopy from the cardiac point of view, but attention to respiratory status will be essential. Patient follows with Dr. Arango in pulmonology and goes to [place] for pulmonary rehabilitation. He follows with Dr. Mai for his chronic medical conditions. Patient wishes to have his endoscopy completed locally at [facility]. He denies any problems with sedation in the past. PAST MEDICAL HISTORY Diagnosis Date - Back pain lower lumbar pain - Concussion 02/2011 AND 09/2011 - Gammopathy, 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 - GERD (gastroesophageal reflux disease) - HTN (hypertension) - Hyperglycemia - IPF (idiopathic pulmonary fibrosis) (HCC) diagnosed December 2013 - Renal insufficiency PAST SURGICAL HISTORY Procedure Laterality Date - INGUINAL HERNIA REPAIR HX Right - LUNG BIOPSY HX 03/2014 - PAST SURGICAL HISTORY OF 07/04/20106 cardiac stent x 1 Current Outpatient Prescriptions: clopidogrel (PLAVIX) 75 mg tablet 75 mg. cholecalciferol (VITAMIN D3) 1,000 unit tab tablet VITAMIN D (CHOLECALCIFEROL) 1000 UNIT TABS pirfenidone (ESBRIET) 267 mg capsule ESBRIET 267 MG CAPS Cholecalciferol, Vitamin D3, (VITAMIN D-3) 2,000 unit cap Take one(1) tablet daily. Calcium Citrate-Vitamin D3 630-400 mg-unit Take 1 tablet by mouth once daily. levothyroxine (SYNTHROID) 25 mcg tablet Take 1 tablet by mouth once daily. Take on empty stomach. For thyroid. pantoprazole DR (PROTONIX) 40 mg tablet Take 1 tablet by mouth once daily. pravastatin (PRAVACHOL) 20 mg tablet Take 1 tablet by mouth daily at bedtime. amLODIPine (NORVASC) 5 mg tablet Take 1 tablet by mouth once daily. aspirin, enteric coated (ECOTRIN LOW STRENGTH) 81 mg EC tablet Take 1 tablet by mouth once daily. pirfenidone (ESBRIET) 267 mg capsule Take three (3) capsules by mouth three (3) times daily. No current facility-administered medications for this visit. ALLERGIES: Patient has no known allergies. PERSONAL HISTORY: Social History Marital status: Single Spouse name: Years of education: Number of children: 0 Social History Main Topics Smoking status: Never Smoker Smokeless tobacco: Never Used Alcohol use: Yes 6.0 - 16.5 oz/week Cans of Beer (12oz): 2, Mixed Drinks: 2 - 3 per week Comment: ocas Drug use: No Sexual activity: No FAMILY HISTORY: FAMILY HISTORY Problem Relation Age of Onset - Diabetes Mother - Hypertension Mother - Heart Mother heart failure - other (pulmonary fibrosis) Mother sister as well - Hypertension Father - Seizures Father - COPD Father - other (pulmonary fibosis) Sister lung disease,lung transplant - Heart Brother [place], s/p stent - other (Lung Disease) Brother REVIEW OF SYMPTOMS: The review of systems data was entered by the nurse and reviewed by az Nursing Notes: Elham Cervantes LPN 07/14/2018 11:08 AM Signed REVIEW OF SYSTEMS: General: The patient denies fatigue, denies weight loss, denies weight gain, denies feeling hot, and denies feelings of cold. Eyes: The patient denies glaucoma, denies eye injury/surgery, wears glasses or contacts. Ear/Nose/Throat: The patient denies allergies, denies hayfever, denies ear infections, and denies bloody noses. Cardiovascular: The patient denies chest pain, denies heart disease, NOTES high blood pressure,NOTES cardiac stent, denies prior heart attack, denies irregular heart beat, NOTES high cholesterol, denies poor circulation, denies heart failure, other cardiac issues, denies claudication, denies cold feet, denies peripheral arterial stent. Respiratory: The patient denies tuberculosis, denies pneumonia, denies frequent cough, denies pulmonary embolism, NOTES shortness of breath, and denies coughing up blood. Gastrointestinal: The patient denies difficulty swallowing, NOTES acid reflux, denies ulcers, denies vomiting, denies jaundice/hepatitis, denies gallbladder problems, denies black or tarry stools, denies hemorrhoids, denies bleeding from rectum, denies diverticulitis, denies constipation, denies diarrhea, denies loss of stool control, and denies hernias. Kidney/Bladder: The patient denies kidney stones, denies urine infections, and denies bloody urine. Skin: The patient denies a history of skin cancer, denies bleeding/changing moles, and denies a history of skin rash. Neurologic: The patient denies a history of epilepsy/convulsions, denies headaches, denies head/spinal injuries, and denies stroke/TIA. Psychiatric: The patient denies psychiatric medications, denies depression, and denies voices, denies substance abuse. Endocrine: The patient NOTES thyroid disorders, denies diabetes, and denies hormonal problems. Hematologic: The patient denies a history of bruising, denies bleeding, and denies anemia, denies blood clots. Infections: The patient NOTES a history of measles and mumps, denies rheumatic fever, and denies sexually transmitted diseases. Musculoskeletal: The patient denies back pain/injury, NOTES back problems, NOTES sciatica, denies knee/foot trouble, denies arthritis, or denies gout. When was patient's last Mammogram screening? N/A Last Colonoscopy: 2006 Elham Cervantes LPN I have confirmed and edited as necessary, the PFSH and ROS obtained by others. PHYSICAL EXAMINATION: General: The patient is 73 year old male, well nourished, well hydrated in no acute distress. The patient is oriented to time, place, and person. VITALS: Blood pressure 134/68, pulse 84, weight 80.7 kg (178 lb). Body mass index is 23.97 kg/m?. HEENT: Normal cephalic, ataumatic, pupils are equally round, sclera are anicteric, mucous membranes are moist, oropharynx is clear. Neck has no masses, asymmetry or lymphadenopathy. Respiratory: Clear to auscultation and percussion. Normal respiratory excursion and pattern. Cardiac: Examination is regular rate and rhythm. Normal S1/S2. +ANGELITA Abdominal exam: Soft, nontender, with no palpable masses. No hepatosplenomegaly. No palpable hernias. Rectal exam: exam deferred Extremities: no clubbing, cyanosis or edema. No adenopathy. Other: LABORATORY VALUES: As Noted RADIOLOGIC STUDIES: As Noted Assessment IMPRESSION: encounter for screening colonoscopy. Acid reflux- would plan for EGD in addition to colonoscopy. Idiopathic pulmonary fibrosis, on supplemental oxygen-will message Dr. Arango to ensure no pulmonary concerns for elective endoscopy PLAN: Pending pulmonology clearance, would plan for EGD and colonoscopy to be performed under Monitored Anesthetic Care in hospital setting. We discussed the risks and benefits of the planned endoscopy. I have informed the patient that complications can occur including failure to complete the endoscopy and perforation. The patient had the opportunity to ask questions concerning the planned endoscopy. My staff has also explained the procedure to the patient in understandable terms and has given the patient printed material concerning the procedure. The patient freely consents to surgery. I plan to use golytely bowel preparation for endoscopy. Reviewed importance of good hydration before, during and after bowel preparation. Consider fluid bolus day of endoscopy due to history of elevated creatinine-will defer to Dr. Whittington Patient instructed to REMAIN ON his anticoagulation for the procedure The patient has medical comorbidities for which I plan to perform the procedure under monitored anesthetic care. Patient is requesting to have procedure done locally at [facility] Diagnoses: (Z12.11) Encounter for screening for malignant neoplasm of colon (primary encounter diagnosis) (K21.9) Gastroesophageal reflux disease, esophagitis presence not specified (I25.10) Coronary artery disease involving tyonek coronary artery of tyonek heart without angina pectoris (J84.112) IPF (idiopathic pulmonary fibrosis) (HCC) (J96.11) Chronic hypoxemic respiratory failure (HCC) My findings have been communicated to Dr. Mai via shared medical record. This note will be forwarded to Dr. Kevin Mai MD. Return to Clinic: The patient is instructed to follow-up with me 1 week post operatively. Patient verbalized understanding of all above and agreed with the plan MIKE Bardales PA-C 07/15/2018 4:29 PM Signed Addended by: DIGNA STOKES PA-C on: 07/15/2018 04:29 PM Modules accepted: Orders Referring Provider: KEVIN MAI [[id number]] Allergies As of Date: 07/14/2018 (No Known Allergies) Date Reviewed: 07/14/2018 Reviewed by: Elham Cervantes LPN - Fully Assessed Reason for Visit: colon/EGD consult [Other] Primary Visit Diagnosis:Encounter for screening for malignant neoplasm of colon [Z12.11] Other Visit Diagnoses:Gastroesophageal reflux disease, esophagitis presence not specified [K21.9] Coronary artery disease involving tyonek coronary artery of tyonek heart without angina pectoris [I25.10] IPF (idiopathic pulmonary fibrosis) ([facility]) [J84.112] Chronic hypoxemic respiratory failure ([facility]) [J96.11] Order(s):peg 3350-Electrolytes (GOLYTELY) 236-22.74-6.74 - 5.86 gram suspensionTake 4,000 mL by mouth one time only for 1 dose.Disp: 1 BottleRfl: 0 Prescriptions as of 07/14/2018 Sig: CLOPIDOGREL 75 MG TABLET 75 mg. CHOLECALCIFEROL (VITAMIN D3) * VITAMIN D (CHOLECALCIFEROL) 1* PIRFENIDONE 267 MG CAPSULE ESBRIET 267 MG CAPS PEG 3350-ELECTROLYTES 236 GRA* Take 4,000 mL by mouth one ti* CHOLECALCIFEROL (VITAMIN D3) * Take one(1) tablet daily. CALCIUM CITRATE-VITAMIN D 630* Take 1 tablet by mouth once d* LEVOTHYROXINE 25 MCG TABLET Take 1 tablet by mouth once d* PANTOPRAZOLE 40 MG TABLET,DEL* Take 1 tablet by mouth once d* PRAVASTATIN 20 MG TABLET Take 1 tablet by mouth daily * AMLODIPINE 5 MG TABLET Take 1 tablet by mouth once d* ASPIRIN 81 MG TABLET,DELAYED * Take 1 tablet by mouth once d* PIRFENIDONE 267 MG CAPSULE Take three (3) capsules by mo* Problem List As Of Date 07/14/2018 Noted Resolved IPF (idiopathic pulmonary fibrosis) ([facility]) [J84.*INVALID FOR* CKD (chronic kidney disease) [N18.9] INVALID FOR* Hoarse voice quality [R49.0] INVALID FOR* GERD (gastroesophageal reflux disease) [K21.9] INVALID FOR* HTN (hypertension) [I10] INVALID FOR*11/07/2016 Gammopathy, 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 BPH (benign prostatic hyperplasia) [N40.0] INVALID FOR* Family history of ischemic heart disease [Z82.4*INVALID FOR* Coronary artery disease involving tyonek dougherty*INVALID FOR* More... 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 Eyes: The patient denies glaucoma, denies eye injury/surgery, wears glasses or contacts. Ear/Nose/Throat: The patient denies allergies, denies hayfever, denies ear infections, and denies bloody noses. Cardiovascular: The patient denies chest pain, denies heart disease, NOTES high blood pressure,NOTES cardiac stent, denies prior heart attack, denies irregular heart beat, NOTES high cholesterol, denies poor circulation, denies heart failure, other cardiac issues, denies claudication, denies cold feet, denies peripheral arterial stent. Respiratory: The patient denies tuberculosis, denies pneumonia, denies frequent cough, denies pulmonary embolism, NOTES shortness of breath, and denies coughing up blood. Gastrointestinal: The patient denies difficulty swallowing, NOTES acid reflux, denies ulcers, denies vomiting, denies jaundice/hepatitis, denies gallbladder problems, denies black or tarry stools, denies hemorrhoids, denies bleeding from rectum, denies diverticulitis, denies constipation, denies diarrhea, denies loss of stool control, and denies hernias. Kidney/Bladder: The patient denies kidney stones, denies urine infections, and denies bloody urine. Skin: The patient denies a history of skin cancer, denies bleeding/changing moles, and denies a history of skin rash. Neurologic: The patient denies a history of epilepsy/convulsions, denies headaches, denies head/spinal injuries, and denies stroke/TIA. Psychiatric: The patient denies psychiatric medications, denies depression, and denies voices, denies substance abuse. Endocrine: The patient NOTES thyroid disorders, denies diabetes, and denies hormonal problems. Hematologic: The patient denies a history of bruising, denies bleeding, and denies anemia, denies blood clots. Infections: The patient NOTES a history of measles and mumps, denies rheumatic fever, and denies sexually transmitted diseases. Musculoskeletal: The patient denies back pain/injury, NOTES back problems, NOTES sciatica, denies knee/foot trouble, denies arthritis, or denies gout. When was patient's last Mammogram screening? N/A Last Colonoscopy: 2006 Elham Cervantes RECREATION COUNSELOR Prescriptions ordered this encounter Disp Refills Start End PEG 3350-ELECTROLYTES 236 GRAM-22.74* 1 Guillaume* 0 07/15/2018 07/15/2018 Route: ORAL Sig: Take 4,000 mL by mouth one time only for 1 dose. Follow-up and Disposition History Recorded Encounter Status:Closed by DIGNA STOKES PA-C on 07/15/18 CNOV Observed: 07/11/2018 Status: COMPLETED Source: [place] 10:20 AM [facility] [place] REPOSITORY Office Visit (BONEMN) EVAN FLORES ([id number]) 1945 M Date Time Provider Department 07/11/18 10:20 AM KRYS MAR BONEMORENA During your visit today, we recorded the following information about you: Temperature Pulse Blood pressure Weight 97.8 degrees 88/minute 109/71 80.6 kg Height 1.835 m Krys Mar MD 07/11/2018 1:07 PM Signed f/u osteoporosis INTERVAL HISTORY: tolerated prolia no fracture since last visit No invasive dental work in the last three months and none planned for the future. last dental visit was around 04/2018 and was fine - is just going to have a filling in sep. no tooth or jaw pain TREATMENTS: Medications: prolia 12/26/17 Calcium: Supplement: Dose: 600 mg daily and Diet, 680 mg/day Multivitamin: No Vitamin D Intake: 800 units in caltrate with D and he increased his D this week and started an extra vit D 2,000 units daily OSTEOPOROSIS RISK FACTORS Weight <127 lbs: No Height: loss: Yes: 1 1/2 inches lost since age 39 Previous Fragility Fractures: vertebral fractures, most recent was T12 and L2 noted on mri in sep 2017- there was no trauma prior to this. he also has compression deformities involving L1, L3, L5. he saw spine. he also reports a history of remote rib fracture. Family History of Osteoporosis: No Family History of Fragility Fractures: None History of parental hip fracture: No Fall History: No Social history: Smoking History: Never smoked Alcohol Consumption: about 2 drinks per week REVIEW OF SYSTEMS: REVIEW OF SYSTEMS: July 11, 2018 CONSTITUTIONAL: Fever: No Fatigue: Yes Pain: No EYES: Pain: No Redness: No Loss of vision: No Dryness: No EAR, NOSE, MOUTH, THROAT: Nose bleeds: No Hearing loss: No Sores in mouth: No Swallowing problems: No Dry mouth: No CARDIOVASCULAR: Chest pain: No Swelling in the feet or legs: No RESPIRATORY: Shortness of breath: Yes Pain with breathing: No Chronic cough: Yes Coughing up blood: No follows with pulmonary , GASTROINTESTINAL: Heartburn: Yes Nausea: No Diarrhea: No Blood in the stool or black stool: No Abdominal pain: No GENITOURINARY: Blood in urine: No Pain or burning on urination: No] MUSCULOSKELETAL: Joint pain: Yes Joint swelling: No Morning stiffness in joints: Yes Muscle weakness: Yes Back pain: Yes SKIN: Rashes: No Sun sensitive rashes: No Color changes of hands or feet in the cold: No Hair loss: No Nail changes: No NEUROLOGICAL: Headaches: No Dizziness: No Numbness or tingling: No Memory loss: No Seizures: No HEMATOLOGIC/LYMPHATIC: Swollen glands: No Anemia: No ALLERGIES/IMMUNOLOGIC: Allergies (other than medications): No Increased susceptibility to infection: No KNOWN MEDICAL CONDITIONS: Diabetes: No Thyroid disease: Yes High blood pressure: Yes PAST MEDICAL HISTORY Diagnosis Date - Back pain lower lumbar pain - Concussion 02/2011 AND 09/2011 - Gammopathy, 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 - GERD (gastroesophageal reflux disease) - HTN (hypertension) - Hyperglycemia - IPF (idiopathic pulmonary fibrosis) (HCC) diagnosed December 2013 - Renal insufficiency PAST SURGICAL HISTORY Procedure Laterality Date - INGUINAL HERNIA REPAIR HX Right - LUNG BIOPSY HX 03/2014 - PAST SURGICAL HISTORY OF cardiac stent x 1 Family History: FAMILY HISTORY Problem Relation Age of Onset - Diabetes Mother - Hypertension Mother - Heart Mother heart failure - other (pulmonary fibrosis) Mother sister as well - Hypertension Father - Seizures Father - COPD Father - other (pulmonary fibosis) Sister lung disease,lung transplant - Heart Brother [place], s/p stent - other (Lung Disease) Brother Allergies: Patient has no known allergies. Medications: Current Outpatient Prescriptions: Calcium Citrate-Vitamin D3 630-400 mg-unit Take 1 tablet by mouth once daily. levothyroxine (SYNTHROID) 25 mcg tablet Take 1 tablet by mouth once daily. Take on empty stomach. For thyroid. pantoprazole DR (PROTONIX) 40 mg tablet Take 1 tablet by mouth once daily. pravastatin (PRAVACHOL) 20 mg tablet Take 1 tablet by mouth daily at bedtime. amLODIPine (NORVASC) 5 mg tablet Take 1 tablet by mouth once daily. aspirin, enteric coated (ECOTRIN LOW STRENGTH) 81 mg EC tablet Take 1 tablet by mouth once daily. pirfenidone (ESBRIET) 267 mg capsule Take three (3) capsules by mouth three (3) times daily. No current facility-administered medications for this visit. Physical Exam: BP 109/71 (BP Site: Right Arm, BP Position: Sitting, BP Cuff Size: Regular Adult) Pulse 88 Temp 36.6 ?C (97.8 ?F) (Temporal Artery) Ht 183.5 cm (6' 0.25) Wt 80.6 kg (177 lb 12.8 oz) BMI 23.95 kg/m? GEN: NAD, well groomed. on O2 EYES: conjunctiva and sclera normal. THROAT: Normal and no erythema. ORAL: unremarkable NECK: Neck supple, no adenopathy; no thyromegaly HEART: RRR, no murmurs LUNGS: Clear to auscultation. good respiratory effort NEURO: Awake, alert and oriented x 3, normal gait SKIN: Skin color, texture, turgor normal. No rash MSK: Swollen joints none Tender joints none Examination of Back: Profile -Dorsal kyphosis TS: mild -No point tenderness to palpation of spine RELEVANT PREVIOUS INVESTIGATIONS: Calcium Date Value Ref Range Status 07/04/2018 9.5 8.5 - 10.2 mg/dL Final 05/21/2018 9.3 8.5 - 10.2 mg/dL Final 01/14/2018 8.8 8.5 - 10.2 mg/dL Final 12/27/2017 9.3 8.5 - 10.2 mg/dL Final Phosphorus Date Value Ref Range Status 08/30/2015 2.4 (L) 2.5 - 4.5 mg/dL Final 07/26/2015 3.1 2.5 - 4.5 mg/dL Final Alkaline Phosphatase Date Value Ref Range Status 05/21/2018 53 36 - 108 U/L Final 01/14/2018 62 36 - 108 U/L Final 11/07/2017 88 36 - 108 U/L Final 09/16/2017 79 36 - 108 U/L Final PTH, Intact Date Value Ref Range Status 12/04/2017 37 15 - 65 pg/mL Final 04/03/2016 23 15 - 65 pg/mL Final 08/30/2015 24 15 - 65 pg/mL Final Cross-Link N-telopeptide Date Value Ref Range Status 12/04/2017 35.8 21.9 - 75.0 nM/mM Creat Final TSH Date Value Ref Range Status 02/13/2018 4.820 0.400 - 5.500 uU/mL Final 12/27/2017 6.830 (H) 0.400 - 5.500 uU/mL Final 12/04/2017 7.500 (H) 0.400 - 5.500 uU/mL Final 07/26/2015 3.940 0.400 - 5.500 uU/mL Final Vitamin D 25 Hydroxy Date Value Ref Range Status 07/04/2018 30.2 (L) 31.0 - 80.0 ng/mL Final Comment: Classification of 25 OH Vitamin D status: Insufficiency/Moderate Deficiency: < or = 30 ng/mL Sufficiency/Optimal Levels: 31 to 80 ng/mL Toxicity: > 100 ng/mL Test performed by chemiluminescent immunoassay. 12/04/2017 33.9 31.0 - 80.0 ng/mL Final Comment: Classification of 25 OH Vitamin D status: Insufficiency/Moderate Deficiency: < or = 30 ng/mL Sufficiency/Optimal Levels: 31 to 80 ng/mL Toxicity: > 100 ng/mL Test performed by chemiluminescent immunoassay. 04/03/2016 36.9 31.0 - 80.0 ng/mL Final Comment: Classification of 25 OH Vitamin D status: Insufficiency/Moderate Deficiency: < or = 30 ng/mL Sufficiency/Optimal Levels: 31 to 80 ng/mL Toxicity: > 100 ng/mL Test performed by chemiluminescent immunoassay. 08/30/2015 26.6 (L) 31.0 - 80.0 ng/mL Final Comment: Classification of 25 OH Vitamin D status: Insufficiency/Moderate Deficiency: < or = 30 ng/mL Sufficiency/Optimal Levels: 31 to 80 ng/mL Toxicity: > 100 ng/mL Test performed by chemiluminescent immunoassay. Creatinine Date Value Ref Range Status 07/04/2018 1.30 (H) 0.73 - 1.22 mg/dL Final 05/21/2018 1.22 0.73 - 1.22 mg/dL Final 01/14/2018 1.19 0.73 - 1.22 mg/dL Final 12/27/2017 1.28 (H) 0.73 - 1.22 mg/dL Final Protein, Total Date Value Ref Range Status 05/21/2018 7.4 6.3 - 8.0 g/dL Final 01/14/2018 7.1 6.3 - 8.0 g/dL Final 01/14/2018 6.7 6.0 - 8.4 g/dL Final 11/07/2017 7.0 6.3 - 8.0 g/dL Final Albumin Date Value Ref Range Status 05/21/2018 4.0 3.9 - 4.9 g/dL Final 01/14/2018 4.1 3.9 - 4.9 g/dL Final 11/07/2017 3.9 3.9 - 4.9 g/dL Final 09/16/2017 3.8 (L) 3.9 - 4.9 g/dL Final Alpha 1 Globulin Date Value Ref Range Status 01/14/2018 0.17 (L) 0.18 - 0.31 gm/dL Final 07/16/2017 0.25 0.18 - 0.31 gm/dL Final 07/18/2016 0.21 0.18 - 0.31 gm/dL Final 01/17/2016 0.22 0.18 - 0.31 gm/dL Final Alpha 2 Globulin Date Value Ref Range Status 01/14/2018 0.63 0.52 - 0.97 gm/dL Final 07/16/2017 0.91 0.52 - 0.97 gm/dL Final 07/18/2016 0.71 0.52 - 0.97 gm/dL Final 01/17/2016 0.69 0.52 - 0.97 gm/dL Final Beta Globulin Date Value Ref Range Status 01/14/2018 1.01 0.84 - 1.36 gm/dL Final 07/16/2017 1.19 0.84 - 1.36 gm/dL Final 07/18/2016 1.16 0.84 - 1.36 gm/dL Final 01/17/2016 1.05 0.84 - 1.36 gm/dL Final Gamma Globulin Date Value Ref Range Status 01/14/2018 1.15 0.70 - 1.44 gm/dL Final 07/16/2017 1.36 0.70 - 1.44 gm/dL Final 07/18/2016 1.20 0.70 - 1.44 gm/dL Final 01/17/2016 1.26 0.70 - 1.44 gm/dL Final Interpretation (Prot Electro) Date Value Ref Range Status 01/14/2018 SEE COMMENT Final Comment: An M protein is identified on protein electrophoresis. See separate immunofixation report for characterization of the M protein. 07/16/2017 SEE COMMENT Final Comment: An M protein is identified on protein electrophoresis. See separate immunofixation report for characterization of the M protein. 07/18/2016 SEE COMMENT Final Comment: An M protein is identified on protein electrophoresis. See separate immunofixation report for characterization of the M protein. 01/17/2016 SEE COMMENT Final Comment: An M protein is identified on protein electrophoresis. See separate immunofixation report for characterization of the M protein. MPA IgA, Serum Date Value Ref Range Status 01/14/2018 633 (H) 78 - 391 mg/dL Final 07/16/2017 562 (H) 78 - 391 mg/dL Final 07/18/2016 621 (H) 78 - 391 mg/dL Final 01/17/2016 597 (H) 78 - 391 mg/dL Final MPA IgG, Serum Date Value Ref Range Status 01/14/2018 943 717 - 1,411 mg/dL Final 07/16/2017 1,030 717 - 1,411 mg/dL Final 07/18/2016 1,030 717 - 1,411 mg/dL Final 01/17/2016 1,200 717 - 1,411 mg/dL Final MPA IgM, Serum Date Value Ref Range Status 01/14/2018 134 53 - 334 mg/dL Final 07/16/2017 148 53 - 334 mg/dL Final 07/18/2016 151 53 - 334 mg/dL Final 01/17/2016 155 53 - 334 mg/dL Final MPA Purcell, Serum Date Value Ref Range Status 01/14/2018 942 534 - 1,267 mg/dL Final 07/16/2017 980 534 - 1,267 mg/dL Final 07/18/2016 949 534 - 1,267 mg/dL Final 01/17/2016 835 534 - 1,267 mg/dL Final MPA Lambda, Serum Date Value Ref Range Status 01/14/2018 641 253 - 653 mg/dL Final 07/16/2017 654 (H) 253 - 653 mg/dL Final 07/18/2016 646 253 - 653 mg/dL Final 01/17/2016 663 (H) 253 - 653 mg/dL Final MPA Purcell/Lambda Ratio Date Value Ref Range Status 01/14/2018 1.47 1 - 3 Final 07/16/2017 1.50 1 - 3 Final 07/18/2016 1.47 1 - 3 Final 01/17/2016 1.26 1 - 3 Final Interpretation (MPA) Date Value Ref Range Status 01/14/2018 SEE COMMENT Final Comment: Atypical restricted bands are present in the IgM and kappa regions. Consistent with IgM kappa monoclonal gammopathy. 07/16/2017 SEE COMMENT Final Comment: Atypical restricted bands are present in the IgM and kappa regions. Consistent with IgM kappa monoclonal gammopathy. 07/18/2016 SEE COMMENT Final Comment: Poorly defined region of restricted mobility in IgM and kappa lanes. Pattern is less well defined or fainter than typically seen in monoclonal gammopathy. This could represent either an atypical presentation of polyclonal immunoglobulins or the presence of a low level IgM kappa monoclonal gammopathy. If clinically indicated, urine monoclonal protein analysis and serum free light chain measurements are recommended to evaluate further for monoclonal gammopathy. Clinical correlation is necessary. 01/17/2016 SEE COMMENT Final Comment: Poorly defined region of restricted mobility in IgM and kappa lanes. Pattern is less well defined or fainter than typically seen in monoclonal gammopathy. This could represent either an atypical presentation of polyclonal immunoglobulins or the presence of a low level IgM kappa monoclonal gammopathy. If clinically indicated, urine monoclonal protein analysis and serum free light chain measurements are recommended to evaluate further for monoclonal gammopathy. Clinical correlation is necessary. Component Latest Ref Rng AND Units 07/04/2018 Creatinine 0.73 - 1.22 mg/dL 1.30 (H) eGFR- >60 eGFR-All Other Races . 54 Vitamin D 25 Hydroxy 31.0 - 80.0 ng/mL 30.2 (L) Calcium 8.5 - 10.2 mg/dL 9.5 Component Latest Ref Rng AND Units 07/07/2018 Cross-Link N-telopeptide 21.9 - 75.0 nM/mM Creat 22.3 BONE DENSITY RESULTS: DATE OF EXAM: Oct 28 2017 ?8:44AM ? WRB ? 0870 ?- ?BD DXA - FOREARM SKELETON ?- LEFT / PROCEDURE REASON: closed compression fracture of second lumbar vertebra ?? ? * * * * Physician Interpretation * * * * ?PROCEDURE: ?BD DXA - AXIAL SKELETON, BD DXA - FOREARM SKELETON INDICATION: Wedge compression fracture of second lumbar vertebra, initial encounter for closed fracture Wedge compression fracture of unspecified thoracic vertebra, initial encounter for closed fracture Low back pain TECHNIQUE: Low dose AP left forearm and hip images COMPARISON: LEFT HIP: ?The bone mineral density of the total region of the hip is 1.026 grams per square centimeter which yields a T-score of 0.0. ? ?. LEFT FEMORAL NECK: ?The bone mineral density of the femoral neck is 0.849 grams per square centimeter which yields a T-score of -0.6. ? ?. RIGHT HIP: ? The bone mineral density of the total region of the hip is 1.048 grams per square centimeter which yields a T-score of 0.1. ? ?. RIGHT FEMORAL NECK: ?The bone mineral density of the femoral neck is 0.894 grams per square centimeter which yields a T-score of -0.3. ? ?. LEFT FOREARM: ?The bone mineral density of the radius 3 is 0.751 grams per square centimeter which yields a T-score of -1.2 . ? ? mri 10/01/17 IMPRESSION: Interval development of acute/subacute compression deformities at T12 and L2 compared to 06/10/2017. ?No significant bony retropulsion or canal stenosis. Multilevel remote compression deformities involving L1, L3, L5, not significantly changed from 06/10/2017. Multilevel degenerative changes, worst at L3-L4 and L4-L5. IMPRESSION: Osteoporosis on the basis of compression fractures. His lowest T score is in his forearm and is -1.2. he received prolia 12/26/17 Mild vitamin D deficiency Monoclonal gammopathy- follows with hematology Pulmonary Fibrosis- follows with pulmonary History of renal insufficiency PLAN: Prolia given subcutaneous right arm, lot number [id number] exp 09/2020 RBA of prolia discussed. Dental and infectious precautions discussed and continued routine dental visits advised. Calcium 1200 to 1500 mg daily recommended- if cannot achieve this through diet, then calcium citrate supplement recommended. Continue vitamin D- he recently increased his dose Weight bearing exercise as tolerated recommended Fall precautions Repeat bmd on same machine as prior 2 years from last bmd (around oct 2019) recommended f/u with michelle in 6 months for prolia. I asked him to complete labs in 5 months. he will see me for prolia in 1 year. Continued f/u with PCP for routine health maintenance and to discuss the answers to the Knowledge Program patient questionnaire advised. rba of meds discussed. Krys Mar MD Referring Provider: KRYS MAR [[id number]] Allergies As of Date: 07/11/2018 (No Known Allergies) Date Reviewed: 07/11/2018 Reviewed by: Krys Mar - Fully Assessed Primary Visit Diagnosis:Senile osteoporosis [M81.0] Other Visit Diagnoses:Vitamin D deficiency [E55.9] Gammopathy, monoclonal [D47.2] Renal insufficiency [N28.9] IPF (idiopathic pulmonary fibrosis) ([facility]) [J84.112] Encounter for long-term (current) use of medications [Z79.899] Order(s):CALCIUM TOTAL BLD [SQCA] Order #: [id number] FUTURE CREATININE BLD [SQCRET] Order #: [id number] FUTURE VITAMIN D 25 HYDROXY [SQVITD] Order #: [id number] FUTURE [] denosumab 60 mg injection (PROLIA)Disp: Rfl: Cholecalciferol, Vitamin D3, (VITAMIN D-3) 2,000 unit capTake one(1) tablet daily.Disp: Rfl: Prescriptions as of 07/11/2018 Sig: CALCIUM CITRATE-VITAMIN D 630* Take 1 tablet by mouth once d* LEVOTHYROXINE 25 MCG TABLET Take 1 tablet by mouth once d* PANTOPRAZOLE 40 MG TABLET,DEL* Take 1 tablet by mouth once d* PRAVASTATIN 20 MG TABLET Take 1 tablet by mouth daily * AMLODIPINE 5 MG TABLET Take 1 tablet by mouth once d* ASPIRIN 81 MG TABLET,DELAYED * Take 1 tablet by mouth once d* PIRFENIDONE 267 MG CAPSULE Take three (3) capsules by mo* CHOLECALCIFEROL (VITAMIN D3) * Take one(1) tablet daily. Problem List As Of Date 07/11/2018 Noted Resolved IPF (idiopathic pulmonary fibrosis) ([facility]) [J84.*INVALID FOR* CKD (chronic kidney disease) [N18.9] INVALID FOR* Hoarse voice quality [R49.0] INVALID FOR* GERD (gastroesophageal reflux disease) [K21.9] INVALID FOR* HTN (hypertension) [I10] INVALID FOR*11/07/2016 Gammopathy, 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 BPH (benign prostatic hyperplasia) [N40.0] INVALID FOR* Family history of ischemic heart disease [Z82.4*INVALID FOR* Coronary artery disease involving tyonek dougherty*INVALID FOR* More... 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 Medications Discontinued During This Encounter CALCIUM CARBONATE/VITAMIN D3 (CALTRA* 07/11/2018 Class: Historical Med Route: ORAL Sig: Take 1 tablet by mouth once daily. Disc: Reason for discontinue is not on file. Disposition: Return in about 6 months (around 01/09/2019). 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 Patients vitals WNL. HOSP Observed: 07/10/2018 Status: COMPLETED Source: [place] 12:00 AM [facility] REPOSITORY [facility] EVAN FLORES ([id number]) 1945 M Date Time Provider Department 07/10/18 ANGEL CHAVARRIA PHYS) [facility] During your visit today, we recorded the following information about you: Angel Chavarria, Ex Phy 07/10/2018 10:27 AM Signed Patient exercised in phase 3 cardiopulmonary rehabilitation today. Patients vitals WNL. Allergies As of Date: 07/10/2018 (No Known Allergies) Date Reviewed: 07/08/2018 Reviewed by: Shirley (Dre) Richard - Fully Assessed Prescriptions as of 07/10/2018 Sig: CALCIUM CITRATE-VITAMIN D 630* Take 1 tablet by mouth once d* LEVOTHYROXINE 25 MCG TABLET Take 1 tablet by mouth once d* PANTOPRAZOLE 40 MG TABLET,DEL* Take 1 tablet by mouth once d* CALTRATE 600 + D ORAL Take 1 tablet by mouth once d* PRAVASTATIN 20 MG TABLET Take 1 tablet by mouth daily * AMLODIPINE 5 MG TABLET Take 1 tablet by mouth once d* ASPIRIN 81 MG TABLET,DELAYED * Take 1 tablet by mouth once d* PIRFENIDONE 267 MG CAPSULE Take three (3) capsules by mo* Problem List As Of Date 07/10/2018 Noted Resolved IPF (idiopathic pulmonary fibrosis) (H[facility]) [J84.*INVALID FOR* CKD (chronic kidney disease) [N18.9] INVALID FOR* Hoarse voice quality [R49.0] INVALID FOR* GERD (gastroesophageal reflux disease) [K21.9] INVALID FOR* HTN (hypertension) [I10] INVALID FOR*11/07/2016 Gammopathy, 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 BPH (benign prostatic hyperplasia) [N40.0] INVALID FOR* Family history of ischemic heart disease [Z82.4*INVALID FOR* Coronary artery disease involving tyonek dougherty*INVALID FOR* More... 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] INVALID FOR* Acute midline low back pain [M54.5] INVALID FOR* Chronic hypoxemic respiratory failure (HCC) [J9*INVALID FOR* Pulmonary infiltrate [R91.8] INVALID FOR*05/23/2018 Abnormal weight loss [R63.4] INVALID FOR* Encounter Status:Closed by ANGEL CHAVARRIA on 07/10/18 PROGRESS Observed: 07/08/2018 Status: COMPLETED Source: [place] 11:24 AM [facility] REPOSITORY O ID: [id number] Author: Krys Han File Service: (none) Author Type: Physician Type: Progress Notes Filed: 07/11/2018 1:07 PM Note Text: f/u osteoporosis INTERVAL HISTORY: tolerated prolia no fracture since last visit No invasive dental work in the last three months and none planned for the future. last dental visit was around 04/2018 and was fine - is just going to have a filling in sep. no tooth or jaw pain TREATMENTS: Medications: prolia 12/26/17 Calcium: Supplement: Dose: 600 mg daily and Diet, 680 mg/day Multivitamin: No Vitamin D Intake: 800 units in caltrate with D and he increased his D this week and started an extra vit D 2,000 units daily OSTEOPOROSIS RISK FACTORS Weight <127 lbs: No Height: loss: Yes: 1 1/2 inches lost since age 39 Previous Fragility Fractures: vertebral fractures, most recent was T12 and L2 noted on mri in sep 2017- there was no trauma prior to this. he also has compression deformities involving L1, L3, L5. he saw spine. he also reports a history of remote rib fracture. Family History of Osteoporosis: No Family History of Fragility Fractures: None History of parental hip fracture: No Fall History: No Social history: Smoking History: Never smoked Alcohol Consumption: about 2 drinks per week REVIEW OF SYSTEMS: REVIEW OF SYSTEMS: July 11, 2018 CONSTITUTIONAL: Fever: No Fatigue: Yes Pain: No EYES: Pain: No Redness: No Loss of vision: No Dryness: No EAR, NOSE, MOUTH, THROAT: Nose bleeds: No Hearing loss: No Sores in mouth: No Swallowing problems: No Dry mouth: No CARDIOVASCULAR: Chest pain: No Swelling in the feet or legs: No RESPIRATORY: Shortness of breath: Yes Pain with breathing: No Chronic cough: Yes Coughing up blood: No follows with pulmonary , GASTROINTESTINAL: Heartburn: Yes Nausea: No Diarrhea: No Blood in the stool or black stool: No Abdominal pain: No GENITOURINARY: Blood in urine: No Pain or burning on urination: No] MUSCULOSKELETAL: Joint pain: Yes Joint swelling: No Morning stiffness in joints: Yes Muscle weakness: Yes Back pain: Yes SKIN: Rashes: No Sun sensitive rashes: No Color changes of hands or feet in the cold: No Hair loss: No Nail changes: No NEUROLOGICAL: Headaches: No Dizziness: No Numbness or tingling: No Memory loss: No Seizures: No HEMATOLOGIC/LYMPHATIC: Swollen glands: No Anemia: No ALLERGIES/IMMUNOLOGIC: Allergies (other than medications): No Increased susceptibility to infection: No KNOWN MEDICAL CONDITIONS: Diabetes: No Thyroid disease: Yes High blood pressure: Yes PAST MEDICAL HISTORY Diagnosis Date - Back pain lower lumbar pain - Concussion 02/2011 AND 09/2011 - Gammopathy, 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 - GERD (gastroesophageal reflux disease) - HTN (hypertension) - Hyperglycemia - IPF (idiopathic pulmonary fibrosis) (HCC) diagnosed December 2013 - Renal insufficiency PAST SURGICAL HISTORY Procedure Laterality Date - INGUINAL HERNIA REPAIR HX Right - LUNG BIOPSY HX 03/2014 - PAST SURGICAL HISTORY OF cardiac stent x 1 Family History: FAMILY HISTORY Problem Relation Age of Onset - Diabetes Mother - Hypertension Mother - Heart Mother heart failure - other (pulmonary fibrosis) Mother sister as well - Hypertension Father - Seizures Father - COPD Father - other (pulmonary fibosis) Sister lung disease,lung transplant - Heart Brother [place], s/p stent - other (Lung Disease) Brother Allergies: Patient has no known allergies. Medications: Current Outpatient Prescriptions: Calcium Citrate-Vitamin D3 630-400 mg-unit Take 1 tablet by mouth once daily. levothyroxine (SYNTHROID) 25 mcg tablet Take 1 tablet by mouth once daily. Take on empty stomach. For thyroid. pantoprazole DR (PROTONIX) 40 mg tablet Take 1 tablet by mouth once daily. pravastatin (PRAVACHOL) 20 mg tablet Take 1 tablet by mouth daily at bedtime. amLODIPine (NORVASC) 5 mg tablet Take 1 tablet by mouth once daily. aspirin, enteric coated (ECOTRIN LOW STRENGTH) 81 mg EC tablet Take 1 tablet by mouth once daily. pirfenidone (ESBRIET) 267 mg capsule Take three (3) capsules by mouth three (3) times daily. No current facility-administered medications for this visit. Physical Exam: BP 109/71 (BP Site: Right Arm, BP Position: Sitting, BP Cuff Size: Regular Adult) Pulse 88 Temp 36.6 ?C (97.8 ?F) (Temporal Artery) Ht 183.5 cm (6' 0.25) Wt 80.6 kg (177 lb 12.8 oz) BMI 23.95 kg/m? GEN: NAD, well groomed. on O2 EYES: conjunctiva and sclera normal. THROAT: Normal and no erythema. ORAL: unremarkable NECK: Neck supple, no adenopathy; no thyromegaly HEART: RRR, no murmurs LUNGS: Clear to auscultation. good respiratory effort NEURO: Awake, alert and oriented x 3, normal gait SKIN: Skin color, texture, turgor normal. No rash MSK: Swollen joints none Tender joints none Examination of Back: Profile -Dorsal kyphosis TS: mild -No point tenderness to palpation of spine RELEVANT PREVIOUS INVESTIGATIONS: Calcium Date Value Ref Range Status 07/04/2018 9.5 8.5 - 10.2 mg/dL Final 05/21/2018 9.3 8.5 - 10.2 mg/dL Final 01/14/2018 8.8 8.5 - 10.2 mg/dL Final 12/27/2017 9.3 8.5 - 10.2 mg/dL Final Phosphorus Date Value Ref Range Status 08/30/2015 2.4 (L) 2.5 - 4.5 mg/dL Final 07/26/2015 3.1 2.5 - 4.5 mg/dL Final Alkaline Phosphatase Date Value Ref Range Status 05/21/2018 53 36 - 108 U/L Final 01/14/2018 62 36 - 108 U/L Final 11/07/2017 88 36 - 108 U/L Final 09/16/2017 79 36 - 108 U/L Final PTH, Intact Date Value Ref Range Status 12/04/2017 37 15 - 65 pg/mL Final 04/03/2016 23 15 - 65 pg/mL Final 08/30/2015 24 15 - 65 pg/mL Final Cross-Link N-telopeptide Date Value Ref Range Status 12/04/2017 35.8 21.9 - 75.0 nM/mM Creat Final TSH Date Value Ref Range Status 02/13/2018 4.820 0.400 - 5.500 uU/mL Final 12/27/2017 6.830 (H) 0.400 - 5.500 uU/mL Final 12/04/2017 7.500 (H) 0.400 - 5.500 uU/mL Final 07/26/2015 3.940 0.400 - 5.500 uU/mL Final Vitamin D 25 Hydroxy Date Value Ref Range Status 07/04/2018 30.2 (L) 31.0 - 80.0 ng/mL Final Comment: Classification of 25 OH Vitamin D status: Insufficiency/Moderate Deficiency: < or = 30 ng/mL Sufficiency/Optimal Levels: 31 to 80 ng/mL Toxicity: > 100 ng/mL Test performed by chemiluminescent immunoassay. 12/04/2017 33.9 31.0 - 80.0 ng/mL Final Comment: Classification of 25 OH Vitamin D status: Insufficiency/Moderate Deficiency: < or = 30 ng/mL Sufficiency/Optimal Levels: 31 to 80 ng/mL Toxicity: > 100 ng/mL Test performed by chemiluminescent immunoassay. 04/03/2016 36.9 31.0 - 80.0 ng/mL Final Comment: Classification of 25 OH Vitamin D status: Insufficiency/Moderate Deficiency: < or = 30 ng/mL Sufficiency/Optimal Levels: 31 to 80 ng/mL Toxicity: > 100 ng/mL Test performed by chemiluminescent immunoassay. 08/30/2015 26.6 (L) 31.0 - 80.0 ng/mL Final Comment: Classification of 25 OH Vitamin D status: Insufficiency/Moderate Deficiency: < or = 30 ng/mL Sufficiency/Optimal Levels: 31 to 80 ng/mL Toxicity: > 100 ng/mL Test performed by chemiluminescent immunoassay. Creatinine Date Value Ref Range Status 07/04/2018 1.30 (H) 0.73 - 1.22 mg/dL Final 05/21/2018 1.22 0.73 - 1.22 mg/dL Final 01/14/2018 1.19 0.73 - 1.22 mg/dL Final 12/27/2017 1.28 (H) 0.73 - 1.22 mg/dL Final Protein, Total Date Value Ref Range Status 05/21/2018 7.4 6.3 - 8.0 g/dL Final 01/14/2018 7.1 6.3 - 8.0 g/dL Final 01/14/2018 6.7 6.0 - 8.4 g/dL Final 11/07/2017 7.0 6.3 - 8.0 g/dL Final Albumin Date Value Ref Range Status 05/21/2018 4.0 3.9 - 4.9 g/dL Final 01/14/2018 4.1 3.9 - 4.9 g/dL Final 11/07/2017 3.9 3.9 - 4.9 g/dL Final 09/16/2017 3.8 (L) 3.9 - 4.9 g/dL Final Alpha 1 Globulin Date Value Ref Range Status 01/14/2018 0.17 (L) 0.18 - 0.31 gm/dL Final 07/16/2017 0.25 0.18 - 0.31 gm/dL Final 07/18/2016 0.21 0.18 - 0.31 gm/dL Final 01/17/2016 0.22 0.18 - 0.31 gm/dL Final Alpha 2 Globulin Date Value Ref Range Status 01/14/2018 0.63 0.52 - 0.97 gm/dL Final 07/16/2017 0.91 0.52 - 0.97 gm/dL Final 07/18/2016 0.71 0.52 - 0.97 gm/dL Final 01/17/2016 0.69 0.52 - 0.97 gm/dL Final Beta Globulin Date Value Ref Range Status 01/14/2018 1.01 0.84 - 1.36 gm/dL Final 07/16/2017 1.19 0.84 - 1.36 gm/dL Final 07/18/2016 1.16 0.84 - 1.36 gm/dL Final 01/17/2016 1.05 0.84 - 1.36 gm/dL Final Gamma Globulin Date Value Ref Range Status 01/14/2018 1.15 0.70 - 1.44 gm/dL Final 07/16/2017 1.36 0.70 - 1.44 gm/dL Final 07/18/2016 1.20 0.70 - 1.44 gm/dL Final 01/17/2016 1.26 0.70 - 1.44 gm/dL Final Interpretation (Prot Electro) Date Value Ref Range Status 01/14/2018 SEE COMMENT Final Comment: An M protein is identified on protein electrophoresis. See separate immunofixation report for characterization of the M protein. 07/16/2017 SEE COMMENT Final Comment: An M protein is identified on protein electrophoresis. See separate immunofixation report for characterization of the M protein. 07/18/2016 SEE COMMENT Final Comment: An M protein is identified on protein electrophoresis. See separate immunofixation report for characterization of the M protein. 01/17/2016 SEE COMMENT Final Comment: An M protein is identified on protein electrophoresis. See separate immunofixation report for characterization of the M protein. MPA IgA, Serum Date Value Ref Range Status 01/14/2018 633 (H) 78 - 391 mg/dL Final 07/16/2017 562 (H) 78 - 391 mg/dL Final 07/18/2016 621 (H) 78 - 391 mg/dL Final 01/17/2016 597 (H) 78 - 391 mg/dL Final MPA IgG, Serum Date Value Ref Range Status 01/14/2018 943 717 - 1,411 mg/dL Final 07/16/2017 1,030 717 - 1,411 mg/dL Final 07/18/2016 1,030 717 - 1,411 mg/dL Final 01/17/2016 1,200 717 - 1,411 mg/dL Final MPA IgM, Serum Date Value Ref Range Status 01/14/2018 134 53 - 334 mg/dL Final 07/16/2017 148 53 - 334 mg/dL Final 07/18/2016 151 53 - 334 mg/dL Final 01/17/2016 155 53 - 334 mg/dL Final MPA Purcell, Serum Date Value Ref Range Status 01/14/2018 942 534 - 1,267 mg/dL Final 07/16/2017 980 534 - 1,267 mg/dL Final 07/18/2016 949 534 - 1,267 mg/dL Final 01/17/2016 835 534 - 1,267 mg/dL Final MPA Lambda, Serum Date Value Ref Range Status 01/14/2018 641 253 - 653 mg/dL Final 07/16/2017 654 (H) 253 - 653 mg/dL Final 07/18/2016 646 253 - 653 mg/dL Final 01/17/2016 663 (H) 253 - 653 mg/dL Final MPA Purcell/Lambda Ratio Date Value Ref Range Status 01/14/2018 1.47 1 - 3 Final 07/16/2017 1.50 1 - 3 Final 07/18/2016 1.47 1 - 3 Final 01/17/2016 1.26 1 - 3 Final Interpretation (MPA) Date Value Ref Range Status 01/14/2018 SEE COMMENT Final Comment: Atypical restricted bands are present in the IgM and kappa regions. Consistent with IgM kappa monoclonal gammopathy. 07/16/2017 SEE COMMENT Final Comment: Atypical restricted bands are present in the IgM and kappa regions. Consistent with IgM kappa monoclonal gammopathy. 07/18/2016 SEE COMMENT Final Comment: Poorly defined region of restricted mobility in IgM and kappa lanes. Pattern is less well defined or fainter than typically seen in monoclonal gammopathy. This could represent either an atypical presentation of polyclonal immunoglobulins or the presence of a low level IgM kappa monoclonal gammopathy. If clinically indicated, urine monoclonal protein analysis and serum free light chain measurements are recommended to evaluate further for monoclonal gammopathy. Clinical correlation is necessary. 01/17/2016 SEE COMMENT Final Comment: Poorly defined region of restricted mobility in IgM and kappa lanes. Pattern is less well defined or fainter than typically seen in monoclonal gammopathy. This could represent either an atypical presentation of polyclonal immunoglobulins or the presence of a low level IgM kappa monoclonal gammopathy. If clinically indicated, urine monoclonal protein analysis and serum free light chain measurements are recommended to evaluate further for monoclonal gammopathy. Clinical correlation is necessary. Component Latest Ref Rng AND Units 07/04/2018 Creatinine 0.73 - 1.22 mg/dL 1.30 (H) eGFR- >60 eGFR-All Other Races . 54 Vitamin D 25 Hydroxy 31.0 - 80.0 ng/mL 30.2 (L) Calcium 8.5 - 10.2 mg/dL 9.5 Component Latest Ref Rng AND Units 07/07/2018 Cross-Link N-telopeptide 21.9 - 75.0 nM/mM Creat 22.3 BONE DENSITY RESULTS: DATE OF EXAM: Oct 28 2017 ?8:44AM ? WRB ? 0870 ?- ?BD DXA - FOREARM SKELETON ?- LEFT / PROCEDURE REASON: closed compression fracture of second lumbar vertebra ?? ? * * * * Physician Interpretation * * * * ?PROCEDURE: ?BD DXA - AXIAL SKELETON, BD DXA - FOREARM SKELETON INDICATION: Wedge compression fracture of second lumbar vertebra, initial encounter for closed fracture Wedge compression fracture of unspecified thoracic vertebra, initial encounter for closed fracture Low back pain TECHNIQUE: Low dose AP left forearm and hip images COMPARISON: LEFT HIP: ?The bone mineral density of the total region of the hip is 1.026 grams per square centimeter which yields a T-score of 0.0. ? ?. LEFT FEMORAL NECK: ?The bone mineral density of the femoral neck is 0.849 grams per square centimeter which yields a T-score of -0.6. ? ?. RIGHT HIP: ? The bone mineral density of the total region of the hip is 1.048 grams per square centimeter which yields a T-score of 0.1. ? ?. RIGHT FEMORAL NECK: ?The bone mineral density of the femoral neck is 0.894 grams per square centimeter which yields a T-score of -0.3. ? ?. LEFT FOREARM: ?The bone mineral density of the radius 1/3 is 0.751 grams per square centimeter which yields a T-score of -1.2 . ? ? mri 10/01/17 IMPRESSION: Interval development of acute/subacute compression deformities at T12 and L2 compared to 06/10/2017. ?No significant bony retropulsion or canal stenosis. Multilevel remote compression deformities involving L1, L3, L5, not significantly changed from 06/10/2017. Multilevel degenerative changes, worst at L3-L4 and L4-L5. IMPRESSION: Osteoporosis on the basis of compression fractures. His lowest T score is in his forearm and is -1.2. he received prolia 12/26/17 Mild vitamin D deficiency Monoclonal gammopathy- follows with hematology Pulmonary Fibrosis- follows with pulmonary History of renal insufficiency PLAN: Prolia given subcutaneous right arm, lot number [id number] exp 09/2020 RBA of prolia discussed. Dental and infectious precautions discussed and continued routine dental visits advised. Calcium 1200 to 1500 mg daily recommended- if cannot achieve this through diet, then calcium citrate supplement recommended. Continue vitamin D- he recently increased his dose Weight bearing exercise as tolerated recommended Fall precautions Repeat bmd on same machine as prior 2 years from last bmd (around oct 2019) recommended f/u with michelle in 6 months for prolia. I asked him to complete labs in 5 months. he will see me for prolia in 1 year. Continued f/u with PCP for routine health maintenance and to discuss the answers to the Knowledge Program patient questionnaire advised. rba of meds discussed. Krys Mar MD PROGRESS Observed: 07/08/2018 Status: COMPLETED Source: [place] 10:58 AM [facility] [place] REPOSITORY HNO ID: [id number] Author: Anton Alejandro Service: (none) Author Type: Physician Type: Progress Notes Filed: 07/10/2018 8:20 AM Note Text: PERTINENT CARDIAC HISTORY ASHD - NSTEMI, PCI KIMMY LAD 07/15 REYNOLDS - multifactorial ILD CRF HTN ADHERENCE TO GUIDELINES HORTENCIA-I or ARB for HF with prior LVEF<40 (NQF 0081) - N/A ASA or Plavix for ASHD (NQF 0067) - met Beta renetta for ASHD with prior GA or prior LVEF<40 (NQF 0070) - COPD Beta renetta for HF with prior LVEF<40 (NQF 0083) - N/A HORTENCIA-I or ARB for ASHD with DM or prior LVEF<40 (NQF 0066) - consider Statin therapy for ASHD or FHL or DM - met BMI documented and plan if >25 (NQF 0421) - lifestyle recommendation form Tobacco use screening and referral (NQF 0028) - lifestyle recommendation form Recommendation for whole food, plant based diet - lifestyle recommendation form CLINICAL IMPRESSION/PLAN: Evan Flores has stable ischemic heart disease. Blood pressure is well-controlled. He's had no recent angina. There is no contraindication to colonoscopy from the cardiac point of view, but attention to respiratory status will be essential. His creatinine has increased recently. I had intended to restart an HORTENCIA inhibitor, but we will hold for the time being. He has been going to [place] for pulmonary rehabilitation. He expressed interest in having this done locally. I will see him in 6 month or as needed. If there is increased chest pain or shortness of breath, he has been advised to contact me. Written and verbal health teaching given to patient, patient verbalizes understanding and agrees with treatment plan. DIAGNOSIS FOR VISIT: ASHD Hypertension HISTORY OF PRESENT ILLNESS Evan Flores returns for follow-up of his coronary disease. He reports rare episodes of chest discomfort and has taken no nitroglycerin. He's had no exertional chest discomfort. He is currently engaged in pulmonary rehabilitation. His lung disease is gradually worsening. He has had no orthopnea. He's had minimal edema. He denies syncope, palpitations, TIAs, amaurosis and claudication. He is due to have colonoscopy in the near future. ALLERGIES: ALLERGIES No Known Allergies CURRENT OUTPATIENT MEDICATIONS: Calcium Citrate-Vitamin D3 630-400 mg-unit Take 1 tablet by mouth once daily. levothyroxine (SYNTHROID) 25 mcg tablet Take 1 tablet by mouth once daily. Take on empty stomach. For thyroid. pantoprazole DR (PROTONIX) 40 mg tablet Take 1 tablet by mouth once daily. pravastatin (PRAVACHOL) 20 mg tablet Take 1 tablet by mouth daily at bedtime. amLODIPine (NORVASC) 5 mg tablet Take 1 tablet by mouth once daily. aspirin, enteric coated (ECOTRIN LOW STRENGTH) 81 mg EC tablet Take 1 tablet by mouth once daily. pirfenidone (ESBRIET) 267 mg capsule Take three (3) capsules by mouth three (3) times daily. CALCIUM CARBONATE/VITAMIN D3 (CALTRATE 600 + D ORAL) Take 1 tablet by mouth once daily. PHYSICAL EXAMINATION: VITAL SIGNS: BP 135/79 Pulse 68 Wt 177 lb 9.6 oz (80.6kg) Chest: There are scattered Velcro type rales. There is moderate expiratory prolongation. Trachea is midline. Air entry is equal. Cardiac: Regular rhythm. S1 and S2 are normal. PMI is nondisplaced. There is a soft systolic ejection murmur. Carotids are brisk without bruits. JVP is less than 10 cm. Abdomen: Soft and nontender. There are no pulsatile masses or bruits. No liver enlargement. Bowel sounds are active. Extremities: Trace edema. Pulses are intact and symmetrical. Recent labs were reviewed. Creatinine has been as high as 1.3. TSH is normal and LDL 76. Electronically Signed: Anton Alejandro MD July 08, 2018 10:58 AM CC: Kevin Mai MD CNOV Observed: 07/08/2018 Status: COMPLETED Source: [place] 10:30 AM [facility] [place] REPOSITORY Office Visit (CAWSTR) EVAN FLORES ([id number]) 1945 M Date Time Provider Department 07/08/18 10:30 AM ANTON ALEJANDROWSTR During your visit today, we recorded the following information about you: Pulse Blood pressure Weight 68/minute 135/79 80.6 kg Anton Alejandro MD 07/10/2018 8:20 AM Signed PERTINENT CARDIAC HISTORY ASHD - NSTEMI, PCI KIMMY LAD 07/15 [place] - multifactorial ILD CRF HTN ADHERENCE TO GUIDELINES HORTENCIA-I or ARB for HF with prior LVEF<40 (NQF 0081) - N/A ASA or Plavix for ASHD (NQF 0067) - met Beta renetta for ASHD with prior GA or prior LVEF<40 (NQF 0070) - COPD Beta renetta for HF with prior LVEF<40 (NQF 0083) - N/A HORTENCIA-I or ARB for ASHD with DM or prior LVEF<40 (NQF 0066) - consider Statin therapy for ASHD or FHL or DM - met BMI documented and plan if >25 (NQF 0421) - lifestyle recommendation form Tobacco use screening and referral (NQF 0028) - lifestyle recommendation form Recommendation for whole food, plant based diet - lifestyle recommendation form CLINICAL IMPRESSION/PLAN: Evan Flores has stable ischemic heart disease. Blood pressure is well-controlled. He's had no recent angina. There is no contraindication to colonoscopy from the cardiac point of view, but attention to respiratory status will be essential. His creatinine has increased recently. I had intended to restart an HORTENCIA inhibitor, but we will hold for the time being. He has been going to [place] for pulmonary rehabilitation. He expressed interest in having this done locally. I will see him in 6 month or as needed. If there is increased chest pain or shortness of breath, he has been advised to contact me. Written and verbal health teaching given to patient, patient verbalizes understanding and agrees with treatment plan. DIAGNOSIS FOR VISIT: ASHD Hypertension HISTORY OF PRESENT ILLNESS Evan Flores returns for follow-up of his coronary disease. He reports rare episodes of chest discomfort and has taken no nitroglycerin. He's had no exertional chest discomfort. He is currently engaged in pulmonary rehabilitation. His lung disease is gradually worsening. He has had no orthopnea. He's had minimal edema. He denies syncope, palpitations, TIAs, amaurosis and claudication. He is due to have colonoscopy in the near future. ALLERGIES: ALLERGIES No Known Allergies CURRENT OUTPATIENT MEDICATIONS: Calcium Citrate-Vitamin D3 630-400 mg-unit Take 1 tablet by mouth once daily. levothyroxine (SYNTHROID) 25 mcg tablet Take 1 tablet by mouth once daily. Take on empty stomach. For thyroid. pantoprazole DR (PROTONIX) 40 mg tablet Take 1 tablet by mouth once daily. pravastatin (PRAVACHOL) 20 mg tablet Take 1 tablet by mouth daily at bedtime. amLODIPine (NORVASC) 5 mg tablet Take 1 tablet by mouth once daily. aspirin, enteric coated (ECOTRIN LOW STRENGTH) 81 mg EC tablet Take 1 tablet by mouth once daily. pirfenidone (ESBRIET) 267 mg capsule Take three (3) capsules by mouth three (3) times daily. CALCIUM CARBONATE/VITAMIN D3 (CALTRATE 600 + D ORAL) Take 1 tablet by mouth once daily. PHYSICAL EXAMINATION: VITAL SIGNS: BP 135/79 Pulse 68 Wt 177 lb 9.6 oz (80.6kg) Chest: There are scattered Velcro type rales. There is moderate expiratory prolongation. Trachea is midline. Air entry is equal. Cardiac: Regular rhythm. S1 and S2 are normal. PMI is nondisplaced. There is a soft systolic ejection murmur. Carotids are brisk without bruits. JVP is less than 10 cm. Abdomen: Soft and nontender. There are no pulsatile masses or bruits. No liver enlargement. Bowel sounds are active. Extremities: Trace edema. Pulses are intact and symmetrical. Recent labs were reviewed. Creatinine has been as high as 1.3. TSH is normal and LDL 76. Electronically Signed: Anton Alejandro MD July 08, 2018 10:58 AM CC: MD Anton Trejo MD 07/08/2018 10:59 AM Signed LIFESTYLE CHANGE A healthy lifestyle is the most important component of your overall treatment plan. Please give serious thought to the following areas and commit to making alf changes. EAT A WHOLE FOOD, PLANT BASED DIET The nutrition your body gets is more important than the medicine you take. What matters most is the overall way you eat. We encourage you to minimize the use of animal products (which include dairy and all meats except fatty fish) and use whole, unprocessed plant foods to provide your protein, vitamins and other nutrients. We have a lot of information to share with you on this topic. This is not a diet. It is a way of life that you will keep with you. EXERCISE REGULARLY It is not important to spend hours in the gym, lifting weights and perspiring heavily. A total of 2-3 hours per week of aerobic (causing you to be moderately short of breath) exercise is sufficient to improve your health. Talk to us before you begin a new exercise program, if you have heart disease or experience shortness of breath or chest pain. REDUCE STRESS Chronic emotional and physical stress leads to disease. Ways of reducing stress include meditation, visualization, prayer, yoga and other forms of relaxation therapy. Consistency is the corona. Find a technique that works for you and do it every day. CULTIVATE RELATIONSHIPS Loneliness and isolation have a major negative impact on health. Seek out others who can love, care for and nurture you. Avoid hurtful relationships. MAINTAIN IDEAL BODY WEIGHT The best way to do this is to do all the things above. Our bodies naturally find the right weight if we keep moving and feed ourselves the right food. If your BMI is greater than 25, we strongly recommend a referral to a weight management program. Please speak to us or your family physician about available programs. AVOID NICOTINE IN ALL FORMS This includes all tobacco products, whether chewed, smoked, vaped, or rubbed on the skin. Smoking cessation programs, which can make use of tobacco substitutes, medications to suppress cravings and behavior management, are available. Please contact your family physician about programs in your area. Referring Provider: ANTON ALEJANDRO [[id number]] Allergies As of Date: 07/08/2018 (No Known Allergies) Date Reviewed: 07/08/2018 Reviewed by: Shirley Ramos - Fully Assessed Reason for Visit: Recheck [92] Primary Visit Diagnosis:Hypertension, essential [I10] Other Visit Diagnosis:ASHD (arteriosclerotic heart disease) [I25.10] Prescriptions as of 07/08/2018 Sig: CALCIUM CITRATE-VITAMIN D 630* Take 1 tablet by mouth once d* LEVOTHYROXINE 25 MCG TABLET Take 1 tablet by mouth once d* PANTOPRAZOLE 40 MG TABLET,DEL* Take 1 tablet by mouth once d* PRAVASTATIN 20 MG TABLET Take 1 tablet by mouth daily * AMLODIPINE 5 MG TABLET Take 1 tablet by mouth once d* ASPIRIN 81 MG TABLET,DELAYED * Take 1 tablet by mouth once d* PIRFENIDONE 267 MG CAPSULE Take three (3) capsules by mo* CALTRATE 600 + D ORAL Take 1 tablet by mouth once d* Problem List As Of Date 07/08/2018 Noted Resolved IPF (idiopathic pulmonary fibrosis) (HCC) [J84.*INVALID FOR* CKD (chronic kidney disease) [N18.9] INVALID FOR* Hoarse voice quality [R49.0] INVALID FOR* GERD (gastroesophageal reflux disease) [K21.9] INVALID FOR* HTN (hypertension) [I10] INVALID FOR*11/07/2016 Gammopathy, 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 BPH (benign prostatic hyperplasia) [N40.0] INVALID FOR* Family history of ischemic heart disease [Z82.4*INVALID FOR* Coronary artery disease involving tyonek dougherty*INVALID FOR* More... 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 Please give serious thought to the following areas and commit to making intermediate card tender changes. EAT A WHOLE FOOD, PLANT BASED DIET The nutrition your body gets is more important than the medicine you take. What matters most is the overall way you eat. We encourage you to minimize the use of animal products (which include dairy and all meats except fatty fish) and use whole, unprocessed plant foods to provide your protein, vitamins and other nutrients. We have a lot of information to share with you on this topic. This is not a diet. It is a way of life that you will keep with you. EXERCISE REGULARLY It is not important to spend hours in the gym, lifting weights and perspiring heavily. A total of 2-3 hours per week of aerobic (causing you to be moderately short of breath) exercise is sufficient to improve your health. Talk to us before you begin a new exercise program, if you have heart disease or experience shortness of breath or chest pain. REDUCE STRESS Chronic emotional and physical stress leads to disease. Ways of reducing stress include meditation, visualization, prayer, yoga and other forms of relaxation therapy. Consistency is the corona. Find a technique that works for you and do it every day. CULTIVATE RELATIONSHIPS Loneliness and isolation have a major negative impact on health. Seek out others who can love, care for and nurture you. Avoid hurtful relationships. MAINTAIN IDEAL BODY WEIGHT The best way to do this is to do all the things above. Our bodies naturally find the right weight if we keep moving and feed ourselves the right food. If your BMI is greater than 25, we strongly recommend a referral to a weight management program. Please speak to us or your family physician about available programs. AVOID NICOTINE IN ALL FORMS This includes all tobacco products, whether chewed, smoked, vaped, or rubbed on the skin. Smoking cessation programs, which can make use of tobacco substitutes, medications to suppress cravings and behavior management, are available. Please contact your family physician about programs in your area. Follow-up and Disposition History Recorded Encounter Status:Closed by ANTON ALEJANDRO MD on 07/10/18 X-LINK N-TELOPEPTIDE Collected: 07/07/2018 Status: F Source: [place] 8:01 AM [facility] REPOSITORY TYPE CODE TESTS RESULT OUT OF RANGE REFERENCE UNITS LAB UNTX 21.9-75.0 nM/mM Creat X-Link 22.3 N-telopeptid e Performed By: #### UNTX2 #### [facility] [address] [place] [address] VITAMIN D 25 HYDROXY Collected: 07/04/2018 Status: F Source: [place] 8:15 AM [facility] [place] REPOSITORY TYPE CODE TESTS RESULT OUT OF REFERENCE UNITS RANGE LAB VITD 31.0-80.0 ng/mL Low Vitamin D 25 30.2 Hydroxy Result Comment: Classification of 25 OH Vitamin D status: Insufficiency/Moderate Deficiency: < or = 30 ng/mL Sufficiency/Optimal Levels: 31 to 80 ng/mL Toxicity: > 100 ng/mL Test performed by chemiluminescent immunoassay. Performed By: #### VITD, CA, CRET1 #### [facility] [address] [place] [address] CALCIUM, TOTAL Collected: 07/04/2018 Status: F Source: [place] 8:15 AM [facility] [place] REPOSITORY TYPE CODE TESTS RESULT OUT OF RANGE REFERENCE UNITS LAB CA 8.5-10.2 mg/dL Calcium, 9.5 Total Performed By: #### VITD, CA, CRET1 #### [facility] [address] [place] [address] CREATININE Collected: 07/04/2018 Status: F Source: [place] 8:15 AM [facility] [place] REPOSITORY TYPE CODE TESTS RESULT OUT OF REFERENCE UNITS RANGE LAB CRET 0.73-1.22 mg/dL High Creatinine 1.30 LAB GFRAA eGFR- >60 Amer. LAB GFRNAA . eGFR-All Other Races 54 Result Comment: eGFR (Estimated GFR) Units of measure: mL/min/1.73 meters squared eGFR is derived from the reexpressed MDRD Study equation using the following parameters: serum creatinine, age, gender and race. The creatinine assay has been calibrated to be traceable to IDMS. An eGFR <60 mL/min/1.73m2 for >3 months is consistent with chronic kidney disease. Refer to KDOQI guidelines for clinical interpretation. In patients with unstable renal function, e.g. those with acute kidney injury, the eGFR may not accurately reflect actual GFR. Performed By: #### VITD, CA, CRET1 #### [facility] [address] [place] [id number] PROGRESS Observed: 07/03/2018 Status: COMPLETED Source: [place] 10:21 AM [facility] REPOSITORY HNO ID: [id number] Author: Angel Chavarria (Ex Phys) Service: (none) Author Type: Dryer And Washer Mechanic Type: Progress Notes Filed: 07/03/2018 10:21 AM Note Text: Patient exercised in phase 3 cardiopulmonary rehabilitation today. Patients vitals WNL. HOSP Observed: 07/03/2018 Status: COMPLETED Source: [place] 12:00 AM [facility] REPOSITORY Patient Update (CDPLM) EVAN FLORES ([id number]) 1945 M Date Time Provider Department 07/03/18 ANGEL CHAVARRIA (HARDIK PHYS) [facility] During your visit today, we recorded the following information about you: Hardik Arcos [facility] 07/03/2018 10:21 AM Signed Patient exercised in phase 3 cardiopulmonary rehabilitation today. Patients vitals WNL. Allergies As of Date: 07/03/2018 (No Known Allergies) Date Reviewed: 05/23/2018 Reviewed by: Jesús Grimes Ma - Fully Assessed Prescriptions as of 07/03/2018 Sig: LEVOTHYROXINE 25 MCG TABLET Take 1 tablet by mouth once d* PANTOPRAZOLE 40 MG TABLET,DEL* Take 1 tablet by mouth once d* CALTRATE 600 + D ORAL Take 1 tablet by mouth once d* PRAVASTATIN 20 MG TABLET Take 1 tablet by mouth daily * AMLODIPINE 5 MG TABLET Take 1 tablet by mouth once d* ASPIRIN 81 MG TABLET,DELAYED * Take 1 tablet by mouth once d* PIRFENIDONE 267 MG CAPSULE Take three (3) capsules by mo* Problem List As Of Date 07/03/2018 Noted Resolved IPF (idiopathic pulmonary fibrosis) ([facility]) [J84.*INVALID FOR* CKD (chronic kidney disease) [N18.9] INVALID FOR* Hoarse voice quality [R49.0] INVALID FOR* GERD (gastroesophageal reflux disease) [K21.9] INVALID FOR* HTN (hypertension) [I10] INVALID FOR*11/07/2016 Gammopathy, 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 BPH (benign prostatic hyperplasia) [N40.0] INVALID FOR* Family history of ischemic heart disease [Z82.4*INVALID FOR* Coronary artery disease involving tyonek dougherty*INVALID FOR* More... 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] INVALID FOR* Acute midline low back pain [M54.5] INVALID FOR* Chronic hypoxemic respiratory failure (HCC) [J9*INVALID FOR* Pulmonary infiltrate [R91.8] INVALID FOR*05/23/2018 Abnormal weight loss [R63.4] INVALID FOR* Encounter Status:Closed by ANGEL CHAVARRIA on 07/03/18 PROGRESS Observed: 07/01/2018 Status: COMPLETED Source: [place] 10:29 AM [facility] REPOSITORY HNO ID: [id number] Author: Angel Luciano) Deon Service: (none) Author Type: Dryer And Washer Mechanic Type: Progress Notes Filed: 07/01/2018 10:29 AM Note Text: Patient exercised in phase 3 cardiopulmonary rehabilitation today. Patients vitals WNL. HOSP Observed: 07/01/2018 Status: COMPLETED Source: [place] 12:00 AM [facility] REPOSITORY Patient Update [facility] EVAN FLORES ([id number]) 1945 M Date Time Provider Department 07/01/18 ANGEL CHAVARRIA PHYS) [facility] During your visit today, we recorded the following information about you: Hardik Arcos 07/01/2018 10:29 AM Signed Patient exercised in phase 3 cardiopulmonary rehabilitation today. Patients vitals WNL. Allergies As of Date: 07/01/2018 (No Known Allergies) Date Reviewed: 05/23/2018 Reviewed by: Jesús Grimes Ma - Fully Assessed Prescriptions as of 07/01/2018 Sig: LEVOTHYROXINE 25 MCG TABLET Take 1 tablet by mouth once d* PANTOPRAZOLE 40 MG TABLET,DEL* Take 1 tablet by mouth once d* CALTRATE 600 + D ORAL Take 1 tablet by mouth once d* PRAVASTATIN 20 MG TABLET Take 1 tablet by mouth daily * AMLODIPINE 5 MG TABLET Take 1 tablet by mouth once d* ASPIRIN 81 MG TABLET,DELAYED * Take 1 tablet by mouth once d* PIRFENIDONE 267 MG CAPSULE Take three (3) capsules by mo* Problem List As Of Date 07/01/2018 Noted Resolved IPF (idiopathic pulmonary fibrosis) (HCC) [J84.*INVALID FOR* CKD (chronic kidney disease) [N18.9] INVALID FOR* Hoarse voice quality [R49.0] INVALID FOR* GERD (gastroesophageal reflux disease) [K21.9] INVALID FOR* HTN (hypertension) [I10] INVALID FOR*11/07/2016 Gammopathy, 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 BPH (benign prostatic hyperplasia) [N40.0] INVALID FOR* Family history of ischemic heart disease [Z82.4*INVALID FOR* Coronary artery disease involving tyonek dougherty*INVALID FOR* More... 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] INVALID FOR* Acute midline low back pain [M54.5] INVALID FOR* Chronic hypoxemic respiratory failure (HCC) [J9*INVALID FOR* Pulmonary infiltrate [R91.8] INVALID FOR*05/23/2018 Abnormal weight loss [R63.4] INVALID FOR* Encounter Status:Closed by ANGEL CHAVARRIA on 07/01/18 PROGRESS Observed: 06/26/2018 Status: COMPLETED Source: [place] 10:26 AM [facility] REPOS[facility] HNO ID: [id number] Author: Angel HoEx PhysSharda Chavarria Service: (none) Author Type: Dryer And Washer Mechanic Type: Progress Notes Filed: 06/26/2018 10:26 AM Note Text: Patient exercised in phase 3 cardiopulmonary rehabilitation today. Patients vitals WNL. HOSP Observed: 06/26/2018 Status: COMPLETED Source: [place] 12:00 AM [facility] RE[facility] Patient Update ([facility] EVAN FLORES ([id number]) 1945 M Date Time Provider Department 06/26/18 ANGEL CHAVARRIA (EX PHYS) [facility] During your visit today, we recorded the following information about you: Hardik Arcos [facility] 06/26/2018 10:26 AM Signed Patient exercised in phase 3 cardiopulmonary rehabilitation today. Patients vitals WNL. Allergies As of Date: 06/26/2018 (No Known Allergies) Date Reviewed: 05/23/2018 Reviewed by: Jesús Grimes Ma - Fully Assessed Prescriptions as of 06/26/2018 Sig: LEVOTHYROXINE 25 MCG TABLET Take 1 tablet by mouth once d* PANTOPRAZOLE 40 MG TABLET,DEL* Take 1 tablet by mouth once d* CALTRATE 600 + D ORAL Take 1 tablet by mouth once d* PRAVASTATIN 20 MG TABLET Take 1 tablet by mouth daily * AMLODIPINE 5 MG TABLET Take 1 tablet by mouth once d* ASPIRIN 81 MG TABLET,DELAYED * Take 1 tablet by mouth once d* PIRFENIDONE 267 MG CAPSULE Take three (3) capsules by mo* Problem List As Of Date 06/26/2018 Noted Resolved IPF (idiopathic pulmonary fibrosis) (HCC) [J84.*INVALID FOR* CKD (chronic kidney disease) [N18.9] INVALID FOR* Hoarse voice quality [R49.0] INVALID FOR* GERD (gastroesophageal reflux disease) [K21.9] INVALID FOR* HTN (hypertension) [I10] INVALID FOR*11/07/2016 Gammopathy, 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 BPH (benign prostatic hyperplasia) [N40.0] INVALID FOR* Family history of ischemic heart disease [Z82.4*INVALID FOR* Coronary artery disease involving tyonek dougherty*INVALID FOR* More... 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] INVALID FOR* Acute midline low back pain [M54.5] INVALID FOR* Chronic hypoxemic respiratory failure (HCC) [J9*INVALID FOR* Pulmonary infiltrate [R91.8] INVALID FOR*05/23/2018 Abnormal weight loss [R63.4] INVALID FOR* Encounter Status:Closed by ANGEL CHAVARRIA on 06/26/18 PROGRESS Observed: 06/24/2018 Status: COMPLETED Source: [place] 10:35 AM [facility] REPOSITORY HNO ID: [id number] Author: Jessica (Danielle) Karl RN Service: (none) Author Type: Registered Nurse Type: Progress Notes Filed: 06/24/2018 10:35 AM Note Text: Patient exercised in phase 3 cardiopulmonary rehabilitation today. Patients vitals WNL. HOSP Observed: 06/24/2018 Status: COMPLETED Source: [place] 12:00 AM [facility] REPOSITORY Patient Update ([facility]) EVAN FLORES ([id number]) 1945 M Date Time Provider Department 06/24/18 JESSICA LUCIANO) [facility] During your visit today, we recorded the following information about you: Jessica Luciano RN, RN 06/24/2018 10:35 AM Signed Patient exercised in phase 3 cardiopulmonary rehabilitation today. Patients vitals WNL. Allergies As of Date: 06/24/2018 (No Known Allergies) Date Reviewed: 05/23/2018 Reviewed by: Jesús Grimes Ma - Fully Assessed Prescriptions as of 06/24/2018 Sig: LEVOTHYROXINE 25 MCG TABLET Take 1 tablet by mouth once d* PANTOPRAZOLE 40 MG TABLET,DEL* Take 1 tablet by mouth once d* CALTRATE 600 + D ORAL Take 1 tablet by mouth once d* PRAVASTATIN 20 MG TABLET Take 1 tablet by mouth daily * AMLODIPINE 5 MG TABLET Take 1 tablet by mouth once d* ASPIRIN 81 MG TABLET,DELAYED * Take 1 tablet by mouth once d* PIRFENIDONE 267 MG CAPSULE Take three (3) capsules by mo* Problem List As Of Date 06/24/2018 Noted Resolved IPF (idiopathic pulmonary fibrosis) (HCC) [J84.*INVALID FOR* CKD (chronic kidney disease) [N18.9] INVALID FOR* Hoarse voice quality [R49.0] INVALID FOR* GERD (gastroesophageal reflux disease) [K21.9] INVALID FOR* HTN (hypertension) [I10] INVALID FOR*11/07/2016 Gammopathy, 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 BPH (benign prostatic hyperplasia) [N40.0] INVALID FOR* Family history of ischemic heart disease [Z82.4*INVALID FOR* Coronary artery disease involving tyonek dougherty*INVALID FOR* More... 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] INVALID FOR* Acute midline low back pain [M54.5] INVALID FOR* Chronic hypoxemic respiratory failure (HCC) [J9*INVALID FOR* Pulmonary infiltrate [R91.8] INVALID FOR*05/23/2018 Abnormal weight loss [R63.4] INVALID FOR* Encounter Status:Closed by JESSICA LUCIANO on 06/24/18 PROGRESS Observed: 06/19/2018 Status: COMPLETED Source: [place] 10:03 AM [facility] REPOSITORY HNO ID: [id number] Author: Jessica (Rn) DANIELLE Luciano Service: (none) Author Type: Registered Nurse Type: Progress Notes Filed: 06/19/2018 10:03 AM Note Text: Patient exercised in phase 3 cardiopulmonary rehabilitation today. Patients vitals WNL. HOSP Observed: 06/19/2018 Status: COMPLETED Source: [place] 12:00 AM [facility] REPOSITORY Patient Update ([facility]) FLORESEVAN GABRIEL ([id number]) 1945 M Date Time Provider Department 06/19/18 JESSICA LUCIANO (RN) [facility] During your visit today, we recorded the following information about you: Jessica Luciano RN, RN 06/19/2018 10:03 AM Signed Patient exercised in phase 3 cardiopulmonary rehabilitation today. Patients vitals WNL. Allergies As of Date: 06/19/2018 (No Known Allergies) Date Reviewed: 05/23/2018 Reviewed by: Jesús Grimes Ma - Fully Assessed Prescriptions as of 06/19/2018 Sig: LEVOTHYROXINE 25 MCG TABLET Take 1 tablet by mouth once d* PANTOPRAZOLE 40 MG TABLET,DEL* Take 1 tablet by mouth once d* CALTRATE 600 + D ORAL Take 1 tablet by mouth once d* PRAVASTATIN 20 MG TABLET Take 1 tablet by mouth daily * AMLODIPINE 5 MG TABLET Take 1 tablet by mouth once d* ASPIRIN 81 MG TABLET,DELAYED * Take 1 tablet by mouth once d* PIRFENIDONE 267 MG CAPSULE Take three (3) capsules by mo* Problem List As Of Date 06/19/2018 Noted Resolved IPF (idiopathic pulmonary fibrosis) ([facility]) [J84.*INVALID FOR* CKD (chronic kidney disease) [N18.9] INVALID FOR* Hoarse voice quality [R49.0] INVALID FOR* GERD (gastroesophageal reflux disease) [K21.9] INVALID FOR* HTN (hypertension) [I10] INVALID FOR*11/07/2016 Gammopathy, 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 BPH (benign prostatic hyperplasia) [N40.0] INVALID FOR* Family history of ischemic heart disease [Z82.4*INVALID FOR* Coronary artery disease involving tyonek dougherty*INVALID FOR* More... 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] INVALID FOR* Acute midline low back pain [M54.5] INVALID FOR* Chronic hypoxemic respiratory failure (HCC) [J9*INVALID FOR* Pulmonary infiltrate [R91.8] INVALID FOR*05/23/2018 Abnormal weight loss [R63.4] INVALID FOR* Encounter Status:Closed by JESSICA LUCIANO on 06/19/18 PROGRESS Observed: 06/17/2018 Status: COMPLETED Source: [place] 10:29 AM [facility] REPOSITORY HNO ID: [id number] Author: Angel Chavarria (Ex Phys) Service: (none) Author Type: Dryer And Washer Mechanic Type: Progress Notes Filed: 06/17/2018 10:29 AM Note Text: Patient exercised in phase 3 cardiopulmonary rehabilitation today. Patients vitals WNL. HOSP Observed: 06/17/2018 Status: COMPLETED Source: [place] 12:00 AM [facility] REPOSITORY Patient Update ([facility]) EVAN FLORES ([id number]) 1945 M Date Time Provider Department 06/17/18 ANGEL CHAVARRIA) [facility] During your visit today, we recorded the following information about you: Hardik Arcos 06/17/2018 10:29 AM Signed Patient exercised in phase 3 cardiopulmonary rehabilitation today. Patients vitals WNL. Allergies As of Date: 06/17/2018 (No Known Allergies) Date Reviewed: 05/23/2018 Reviewed by: Jesús Grimes Ma - Fully Assessed Prescriptions as of 06/17/2018 Sig: PANTOPRAZOLE 40 MG TABLET,DEL* Take 1 tablet by mouth once d* LEVOTHYROXINE 25 MCG TABLET Take 1 tablet by mouth once d* CALTRATE 600 + D ORAL Take 1 tablet by mouth once d* PRAVASTATIN 20 MG TABLET Take 1 tablet by mouth daily * AMLODIPINE 5 MG TABLET Take 1 tablet by mouth once d* ASPIRIN 81 MG TABLET,DELAYED * Take 1 tablet by mouth once d* PIRFENIDONE 267 MG CAPSULE Take three (3) capsules by mo* Problem List As Of Date 06/17/2018 Noted Resolved IPF (idiopathic pulmonary fibrosis) (HCC) [J84.*INVALID FOR* CKD (chronic kidney disease) [N18.9] INVALID FOR* Hoarse voice quality [R49.0] INVALID FOR* GERD (gastroesophageal reflux disease) [K21.9] INVALID FOR* HTN (hypertension) [I10] INVALID FOR*11/07/2016 Gammopathy, 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 BPH (benign prostatic hyperplasia) [N40.0] INVALID FOR* Family history of ischemic heart disease [Z82.4*INVALID FOR* Coronary artery disease involving tyonek dougherty*INVALID FOR* More... 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] INVALID FOR* Acute midline low back pain [M54.5] INVALID FOR* Chronic hypoxemic respiratory failure (HCC) [J9*INVALID FOR* Pulmonary infiltrate [R91.8] INVALID FOR*05/23/2018 Abnormal weight loss [R63.4] INVALID FOR* Encounter Status:Closed by ANGEL CHAVARRIA on 06/17/18 PROGRESS Observed: 06/12/2018 Status: COMPLETED Source: [place] 10:24 AM [facility] REPOSITORY HNO ID: [id number] Author: Angel Han (Ex Phys) Deon Service: (none) Author Type: Dryer And Washer Mechanic Type: Progress Notes Filed: 06/12/2018 10:24 AM Note Text: Patient exercised in phase 3 cardiopulmonary rehabilitation today. Patients vitals WNL. HOSP Observed: 06/12/2018 Status: COMPLETED Source: [place] 12:00 AM [facility] REPOSITORY Patient Update ([facility]) EVAN FLORES ([id number]) 1945 M Date Time Provider Department 06/12/18 ANGEL CHAVARRIA (EX PHYS) [facility] During your visit today, we recorded the following information about you: Hardik Arcos Phy 06/12/2018 10:24 AM Signed Patient exercised in phase 3 cardiopulmonary rehabilitation today. Patients vitals WNL. Allergies As of Date: 06/12/2018 (No Known Allergies) Date Reviewed: 05/23/2018 Reviewed by: Jesús Grimes Ma - Fully Assessed Prescriptions as of 06/12/2018 Sig: PANTOPRAZOLE 40 MG TABLET,DEL* Take 1 tablet by mouth once d* LEVOTHYROXINE 25 MCG TABLET Take 1 tablet by mouth once d* CALTRATE 600 + D ORAL Take 1 tablet by mouth once d* PRAVASTATIN 20 MG TABLET Take 1 tablet by mouth daily * AMLODIPINE 5 MG TABLET Take 1 tablet by mouth once d* ASPIRIN 81 MG TABLET,DELAYED * Take 1 tablet by mouth once d* PIRFENIDONE 267 MG CAPSULE Take three (3) capsules by mo* Problem List As Of Date 06/12/2018 Noted Resolved IPF (idiopathic pulmonary fibrosis) ([facility]) [J84.*INVALID FOR* CKD (chronic kidney disease) [N18.9] INVALID FOR* Hoarse voice quality [R49.0] INVALID FOR* GERD (gastroesophageal reflux disease) [K21.9] INVALID FOR* HTN (hypertension) [I10] INVALID FOR*11/07/2016 Gammopathy, 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 BPH (benign prostatic hyperplasia) [N40.0] INVALID FOR* Family history of ischemic heart disease [Z82.4*INVALID FOR* Coronary artery disease involving tyonek dougherty*INVALID FOR* More... 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] INVALID FOR* Acute midline low back pain [M54.5] INVALID FOR* Chronic hypoxemic respiratory failure (HCC) [J9*INVALID FOR* Pulmonary infiltrate [R91.8] INVALID FOR*05/23/2018 Abnormal weight loss [R63.4] INVALID FOR* Encounter Status:Closed by ANGEL CHAVARRIA on 06/12/18 PROGRESS Observed: 06/10/2018 Status: COMPLETED Source: [place] 10:28 AM [facility] REPOSITORY HNO ID: [id number] Author: Angel Luciano) Deon Service: (none) Author Type: Dryer And Washer Mechanic Type: Progress Notes Filed: 06/10/2018 10:28 AM Note Text: Patient exercised in phase 3 cardiopulmonary rehabilitation today. Patients vitals WNL. HOSP Observed: 06/10/2018 Status: COMPLETED Source: [place] 12:00 AM [facility] REPOSITORY Patient Update [facility]) EVAN FLORES ([id number]) 1945 M Date Time Provider Department 06/10/18 ANGEL CHAVARRIA PHYS) [facility] During your visit today, we recorded the following information about you: Hardik Arcos Phy 06/10/2018 10:28 AM Signed Patient exercised in phase 3 cardiopulmonary rehabilitation today. Patients vitals WNL. Allergies As of Date: 06/10/2018 (No Known Allergies) Date Reviewed: 05/23/2018 Reviewed by: Jesús Grimes Ma - Fully Assessed Prescriptions as of 06/10/2018 Sig: PANTOPRAZOLE 40 MG TABLET,DEL* Take 1 tablet by mouth once d* LEVOTHYROXINE 25 MCG TABLET Take 1 tablet by mouth once d* CALTRATE 600 + D ORAL Take 1 tablet by mouth once d* PRAVASTATIN 20 MG TABLET Take 1 tablet by mouth daily * AMLODIPINE 5 MG TABLET Take 1 tablet by mouth once d* ASPIRIN 81 MG TABLET,DELAYED * Take 1 tablet by mouth once d* PIRFENIDONE 267 MG CAPSULE Take three (3) capsules by mo* Problem List As Of Date 06/10/2018 Noted Resolved IPF (idiopathic pulmonary fibrosis) (HCC) [J84.*INVALID FOR* CKD (chronic kidney disease) [N18.9] INVALID FOR* Hoarse voice quality [R49.0] INVALID FOR* GERD (gastroesophageal reflux disease) [K21.9] INVALID FOR* HTN (hypertension) [I10] INVALID FOR*11/07/2016 Gammopathy, 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 BPH (benign prostatic hyperplasia) [N40.0] INVALID FOR* Family history of ischemic heart disease [Z82.4*INVALID FOR* Coronary artery disease involving tyonek dougherty*INVALID FOR* More... 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] INVALID FOR* Acute midline low back pain [M54.5] INVALID FOR* Chronic hypoxemic respiratory failure (HCC) [J9*INVALID FOR* Pulmonary infiltrate [R91.8] INVALID FOR*05/23/2018 Abnormal weight loss [R63.4] INVALID FOR* Encounter Status:Closed by ANGEL CHAVARRIA on 06/10/18 PROGRESS Observed: 06/05/2018 Status: COMPLETED Source: [place] 10:34 AM [facility] OTHER [place] REPOSITORY HNO ID: [id number] Author: Jessica (Rn) DANIELLE Luciano Service: (none) Author Type: Registered Nurse Type: Progress Notes Filed: 06/05/2018 10:34 AM Note Text: Patient exercised in phase 3 cardiopulmonary rehabilitation today. Patients vitals WNL. HOSP Observed: 06/05/2018 Status: COMPLETED Source: [place] 12:00 AM [facility] OTHER [place] REPOSITORY Patient Update ([facility]) EVAN FLORES ([id number]) 1945 M Date Time Provider Department 06/05/18 JESSICA LUCIANO (RN) [facility] During your visit today, we recorded the following information about you: Jessica Luciano RN, RN 06/05/2018 10:34 AM Signed Patient exercised in phase 3 cardiopulmonary rehabilitation today. Patients vitals WNL. Allergies As of Date: 06/05/2018 (No Known Allergies) Date Reviewed: 05/23/2018 Reviewed by: Jesús Grimes Ma - Fully Assessed Prescriptions as of 06/05/2018 Sig: PANTOPRAZOLE 40 MG TABLET,DEL* Take 1 tablet by mouth once d* LEVOTHYROXINE 25 MCG TABLET Take 1 tablet by mouth once d* CALTRATE 600 + D ORAL Take 1 tablet by mouth once d* PRAVASTATIN 20 MG TABLET Take 1 tablet by mouth daily * AMLODIPINE 5 MG TABLET Take 1 tablet by mouth once d* ASPIRIN 81 MG TABLET,DELAYED * Take 1 tablet by mouth once d* PIRFENIDONE 267 MG CAPSULE Take three (3) capsules by mo* Problem List As Of Date 06/05/2018 Noted Resolved IPF (idiopathic pulmonary fibrosis) (HCC) [J84.*INVALID FOR* CKD (chronic kidney disease) [N18.9] INVALID FOR* Hoarse voice quality [R49.0] INVALID FOR* GERD (gastroesophageal reflux disease) [K21.9] INVALID FOR* HTN (hypertension) [I10] INVALID FOR*11/07/2016 Gammopathy, 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 BPH (benign prostatic hyperplasia) [N40.0] INVALID FOR* Family history of ischemic heart disease [Z82.4*INVALID FOR* Coronary artery disease involving tyonek dougherty*INVALID FOR* More... 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] INVALID FOR* Acute midline low back pain [M54.5] INVALID FOR* Chronic hypoxemic respiratory failure (HCC) [J9*INVALID FOR* Pulmonary infiltrate [R91.8] INVALID FOR*05/23/2018 Abnormal weight loss [R63.4] INVALID FOR* Encounter Status:Closed by JESSICA LUCIANO on 06/05/18 PROGRESS Observed: 06/03/2018 Status: COMPLETED Source: [place] 10:18 AM [facility] REPOSITORY HNO ID: [id number] Author: Angel HoEx PhysSharda Chavarria Service: (none) Author Type: Dryer And Washer Mechanic Type: Progress Notes Filed: 06/03/2018 10:18 AM Note Text: Patient exercised in phase 3 cardiopulmonary rehabilitation today. Patients vitals WNL. HOSP Observed: 06/03/2018 Status: COMPLETED Source: [place] 12:00 AM [facility] REPOSITORY [facility] EVAN FLORES ([id number]) 1945 M Date Time Provider Department 06/03/18 ANGEL CHAVARRIA PHYS) [facility] During your visit today, we recorded the following information about you: Hardik Arcos 06/03/2018 10:18 AM Signed Patient exercised in phase 3 cardiopulmonary rehabilitation today. Patients vitals WNL. Allergies As of Date: 06/03/2018 (No Known Allergies) Date Reviewed: 05/23/2018 Reviewed by: Jesús Grimes Ma - Fully Assessed Prescriptions as of 06/03/2018 Sig: PANTOPRAZOLE 40 MG TABLET,DEL* Take 1 tablet by mouth once d* LEVOTHYROXINE 25 MCG TABLET Take 1 tablet by mouth once d* CALTRATE 600 + D ORAL Take 1 tablet by mouth once d* PRAVASTATIN 20 MG TABLET Take 1 tablet by mouth daily * AMLODIPINE 5 MG TABLET Take 1 tablet by mouth once d* ASPIRIN 81 MG TABLET,DELAYED * Take 1 tablet by mouth once d* PIRFENIDONE 267 MG CAPSULE Take three (3) capsules by mo* Problem List As Of Date 06/03/2018 Noted Resolved IPF (idiopathic pulmonary fibrosis) (HCC) [J84.*INVALID FOR* CKD (chronic kidney disease) [N18.9] INVALID FOR* Hoarse voice quality [R49.0] INVALID FOR* GERD (gastroesophageal reflux disease) [K21.9] INVALID FOR* HTN (hypertension) [I10] INVALID FOR*11/07/2016 Gammopathy, 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 BPH (benign prostatic hyperplasia) [N40.0] INVALID FOR* Family history of ischemic heart disease [Z82.4*INVALID FOR* Coronary artery disease involving tyonek dougherty*INVALID FOR* More... 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] INVALID FOR* Acute midline low back pain [M54.5] INVALID FOR* Chronic hypoxemic respiratory failure (HCC) [J9*INVALID FOR* Pulmonary infiltrate [R91.8] INVALID FOR*05/23/2018 Abnormal weight loss [R63.4] INVALID FOR* Encounter Status:Closed by ANGEL CHAVARRIA on 06/03/18 PROGRESS Observed: 05/29/2018 Status: COMPLETED Source: [place] 10:56 AM [facility] REPOSITORY HNO ID: [id number] Author: Angel Han (Ex Phys) Deon Service: (none) Author Type: Dryer And Washer Mechanic Type: Progress Notes Filed: 05/29/2018 10:56 AM Note Text: Patient exercised in phase 3 cardiopulmonary rehabilitation today. Patients vitals WNL. HOSP Observed: 05/29/2018 Status: COMPLETED Source: [place] 12:00 AM [facility] REPOSITORY Patient Update ([facility]) SANDRAEVAN ([id number]) 1945 M Date Time Provider Department 05/29/18 ANGEL CHAVARRIA (EX PHYS) [facility] During your visit today, we recorded the following information about you: Angel Chavarria, Ex Phy 05/29/2018 10:56 AM Signed Patient exercised in phase 3 cardiopulmonary rehabilitation today. Patients vitals WNL. Allergies As of Date: 05/29/2018 (No Known Allergies) Date Reviewed: 05/23/2018 Reviewed by: Jesús Grimes Ma - Fully Assessed Prescriptions as of 05/29/2018 Sig: PANTOPRAZOLE 40 MG TABLET,DEL* Take 1 tablet by mouth once d* LEVOTHYROXINE 25 MCG TABLET Take 1 tablet by mouth once d* CALTRATE 600 + D ORAL Take 1 tablet by mouth once d* PRAVASTATIN 20 MG TABLET Take 1 tablet by mouth daily * AMLODIPINE 5 MG TABLET Take 1 tablet by mouth once d* ASPIRIN 81 MG TABLET,DELAYED * Take 1 tablet by mouth once d* PIRFENIDONE 267 MG CAPSULE Take three (3) capsules by mo* Problem List As Of Date 05/29/2018 Noted Resolved IPF (idiopathic pulmonary fibrosis) (HCC) [J84.*INVALID FOR* CKD (chronic kidney disease) [N18.9] INVALID FOR* Hoarse voice quality [R49.0] INVALID FOR* GERD (gastroesophageal reflux disease) [K21.9] INVALID FOR* HTN (hypertension) [I10] INVALID FOR*11/07/2016 Gammopathy, 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 BPH (benign prostatic hyperplasia) [N40.0] INVALID FOR* Family history of ischemic heart disease [Z82.4*INVALID FOR* Coronary artery disease involving tyonek dougherty*INVALID FOR* More... 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] INVALID FOR* Acute midline low back pain [M54.5] INVALID FOR* Chronic hypoxemic respiratory failure (HCC) [J9*INVALID FOR* Pulmonary infiltrate [R91.8] INVALID FOR*05/23/2018 Abnormal weight loss [R63.4] INVALID FOR* Encounter Status:Closed by ANGEL CHAVARRIA on 05/29/18 PROGRESS Observed: 05/27/2018 Status: COMPLETED Source: [place] 10:27 AM [facility] REPOSITORY HNO ID: [id number] Author: Angel Han (Ex Phys) Deon Service: (none) Author Type: Dryer And Washer Mechanic Type: Progress Notes Filed: 05/27/2018 10:27 AM Note Text: Patient exercised in phase 3 cardiopulmonary rehabilitation today. Patients vitals WNL. HOSP Observed: 05/27/2018 Status: COMPLETED Source: [place] 12:00 AM [facility] REPOSITORY Patient Update (CDPLM) EVAN FLORES ([id number]) 1945 M Date Time Provider Department 05/27/18 ANGEL CHAVARRIA (EX PHYS) [facility] During your visit today, we recorded the following information about you: Hardik Arcos Phy 05/27/2018 10:27 AM Signed Patient exercised in phase 3 cardiopulmonary rehabilitation today. Patients vitals WNL. Allergies As of Date: 05/27/2018 (No Known Allergies) Date Reviewed: 05/23/2018 Reviewed by: Jesús Grimes Ma - Fully Assessed Prescriptions as of 05/27/2018 Sig: PANTOPRAZOLE 40 MG TABLET,DEL* Take 1 tablet by mouth once d* LEVOTHYROXINE 25 MCG TABLET Take 1 tablet by mouth once d* CALTRATE 600 + D ORAL Take 1 tablet by mouth once d* PRAVASTATIN 20 MG TABLET Take 1 tablet by mouth daily * AMLODIPINE 5 MG TABLET Take 1 tablet by mouth once d* ASPIRIN 81 MG TABLET,DELAYED * Take 1 tablet by mouth once d* PIRFENIDONE 267 MG CAPSULE Take three (3) capsules by mo* Problem List As Of Date 05/27/2018 Noted Resolved IPF (idiopathic pulmonary fibrosis) (HCC) [J84.*INVALID FOR* CKD (chronic kidney disease) [N18.9] INVALID FOR* Hoarse voice quality [R49.0] INVALID FOR* GERD (gastroesophageal reflux disease) [K21.9] INVALID FOR* HTN (hypertension) [I10] INVALID FOR*11/07/2016 Gammopathy, 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 BPH (benign prostatic hyperplasia) [N40.0] INVALID FOR* Family history of ischemic heart disease [Z82.4*INVALID FOR* Coronary artery disease involving tyonek dougherty*INVALID FOR* More... 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] INVALID FOR* Acute midline low back pain [M54.5] INVALID FOR* Chronic hypoxemic respiratory failure (HCC) [J9*INVALID FOR* Pulmonary infiltrate [R91.8] INVALID FOR*05/23/2018 Abnormal weight loss [R63.4] INVALID FOR* Encounter Status:Closed by ANGEL CHAVARRIA on 05/27/18 PROGRESS Observed: 05/23/2018 Status: COMPLETED Source: [place] 2:35 PM [facility] [place] REPOSITORY HNO ID: [id number] Author: Regi Lozano Service: (none) Author Type: (none) Type: Progress Notes Filed: 05/23/2018 2:41 PM Note Text: IRB #[id number]: Idiopathic Pulmonary Fibrosis Prospective Outcomes (IPF-PRO) Registry Annually Renewed Informed Consent document (version 4, 02/29/16 AND IRB approved 03/23/18) was thoroughly reviewed with the patient and all risks/benefits/alternatives have been presented. All questions were answered to his satisfaction. He wishes to continue participation in the registry and signed consent after all questions were answered to his/her satisfaction. He is given a copy of the signed consent. ? Evan Flores returns today for follow-up encounter for above-mentioned registry. ? Is participant currently smoking? No ? Since previous contact, has participant: Started participation is clinical trail for IPF- No Undergone pulmonary rehab- Yes; started 11/26/17 Enrolled in hospice- No Undergone transplant eval- No Had lung transplant- No Inpatient/urgent encounter- No ? Review of serious adverse events related to BI medications- None Review of con meds: Will be noted Did Mr. Flores have any hospital encounters since previous contact? No ? Mr. Flores completed all questionnaires and updated contact information. ? Blood samples were collected per study protocol from left AC using a 23G butterfly without difficulty @ 14:05. All blood samples were processed and shipped according to study lab manual and [facility] policy. ? Mr. Flores was informed that she will be contacted by respiratory coordinator regarding future study follow-up. Regi Lozano Slip Cover Maker PROGRESS Observed: 05/23/2018 Status: COMPLETED Source: [place] 12:59 PM [facility] REPOSITORY HNO ID: [id number] Author: Kirti Arango Service: (none) Author Type: Physician Type: Progress Notes Filed: 05/23/2018 1:37 PM Note Text: Consultation requested by Dr. Mai for an opinion regarding IPF. My final recommendations will be communicated back to the requesting physician by way of shared Medical record or letter to requesting physician via [place] mail. HPI: I had the pleasure of seeing Evan Flores in follow-up in the Inter[facility] Lung Disease Clinic at [facility] on May 23, 2018. As you are aware, he is a 73-year-old lifetime nonsmoker with a past medical history significant for MGUS, CKD and GERD who I have been following in the [facility] regarding biopsy-proven IPF. His biopsy was reviewed by [facility] Pathology and showed definitive UIP. He has been on Esbriet since 2014. ? He presents today for routine follow-up. Coughing more and bringing up more mucous. Dyspnea stable. Weight stabilized. 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 - GERD (gastroesophageal reflux disease) - HTN (hypertension) - Hyperglycemia - IPF (idiopathic pulmonary fibrosis) ([facility]) diagnosed December 2013 - Renal insufficiency FAMILY HISTORY Problem Relation Age of Onset - Diabetes Mother - Hypertension Mother - Heart Mother heart failure - other (pulmonary fibrosis) Mother sister as well - Hypertension Father - Seizures Father - COPD Father - other (pulmonary fibosis) Sister lung disease,lung transplant - Heart Brother [place], s/p stent - other (Lung Disease) Brother Social History: Social History Substance Use Topics - Smoking status: Never Smoker - Smokeless tobacco: Never Used - Alcohol use 6.0 - 16.5 oz/week 2 Cans of Beer (12oz), 2 - 3 Mixed Drinks per week Comment: ocas Allergies:ALLERGIES No Known Allergies Current Medications: pantoprazole DR (PROTONIX) 40 mg tablet Take 1 tablet by mouth once daily. levothyroxine (SYNTHROID) 25 mcg tablet Take 1 tablet by mouth once daily. Take on empty stomach. For thyroid. CALCIUM CARBONATE/VITAMIN D3 (CALTRATE 600 + D ORAL) Take 1 tablet by mouth once daily. pravastatin (PRAVACHOL) 20 mg tablet Take 1 tablet by mouth daily at bedtime. amLODIPine (NORVASC) 5 mg tablet Take 1 tablet by mouth once daily. aspirin, enteric coated (ECOTRIN LOW STRENGTH) 81 mg EC tablet Take 1 tablet by mouth once daily. pirfenidone (ESBRIET) 267 mg capsule Take three (3) capsules by mouth three (3) times daily. PHYSICAL EXAM: Vital signs: BP 138/71 Pulse 78 Temp 97.1 Resp 16 Ht 6' 1 (1.85m) Wt 170 lb 10.2 oz (77.4kg) SpO2 97% BMI 22.52 kg/(m2). Gen: Well appearing, well nourished male in NAD, AANDOx3 CV: Regular rate and rhythm. Normal S1S2. No murmurs, gallops or rubs appreciated. Lungs: Good air movement. Minimal, late, inspiratory bibasilar crackles. No wheezes or rhonchi. Normal work of breathing. No accessory muscle use. MS: Extremities are warm and well perfused. No clubbing, cyanosis or edema appreciated. Labs: Pertinent labs reviewed. Spirometry/PFTs (05/23/2018): Spirometry suggests mild restriction. Gas exchange is severely impaired. Compared to his most recent prior spirometry both FVC and DLCO have declined. Pred LLN ULN Pre % FVC 4.76 3.75 5.77 3.65 77 FEV 1 3.47 2.62 4.33 2.99 86 FEV1%F 72.78 63.10 82.46 82.05 113 FEV 2 3.90 2.86 4.94 3.22 83 FEV 3 4.38 3.36 5.40 3.34 76 FEV3%E 89.76 85.12 94.40 91.49 102 MEF 50 4.40 2.78 6.03 6.93 157 FIF 50 6.37 MMEF 2.54 0.82 4.27 3.68 145 FE%FIF 108.77 FEV6 3.53 PEF 8.81 6.45 11.17 9.47 108 FET 13.24 FETPEF 0.10 VBe%FV 6.90 VBEex 0.25 DLCOSB 26.42 18.41 34.42 7.63 29 DL/VA 3.65 2.45 4.85 1.83 50 VA 7.37 6.00 8.74 4.17 57 SHAYNA 4.76 3.75 5.77 3.12 66 BHT 10.34 Oximetry with ambulation (04/09/2018): Decreased but adequate oximetry in room air at rest. Bora oxygen saturation with exertion was 87% on 3 L nasal cannula this improved to 90% on 4 L nasal cannula with exertion. Based on the study he does not qualify for supplemental oxygen at rest it does qualify for 4 L with exertion. InspO2* ? SpO2% ? ? HR Activity ?Feet ?Time ? MPH ?Flag RA ? 93 ? ? 78 resting RA ? 87 ? ? 92 walking, usual pace ? ?184 ?1.30 ?1.61 NC2 ?95 ? ? 82 resting NC2 ?87 ? ?103 walking, usual pace ? ?305 ?1.80 ?1.93 NC3 ?96 ? ? 85 resting NC3 ?87 ? ? 98 walking, usual pace ? ?380 ?2.30 ?1.88 NC4 ?97 ? ? 85 resting NC4 ?90 ? ?103 walking, usual pace ? ?515 ?3.00 ?1.95 NC4 ?97 ? ? 76 resting ? [address] Thorax (05/14/2018): I have personally reviewed the CT images and my findings as well as the formal radiology report (if available) are below. CT continues to show a UIP pattern. There seems to be a minimal amount of progression. No acute changes. Otherwise, as below. 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 ?Sequela of remote granulomatous disease. ?Stable subcentimeter bilateral pulmonary nodules. Stable mediastinal adenopathy. ?Prominent, less than 1 cm bilateral hilar lymph nodes are likely reactive. Again seen is right renal atrophy. Stable wedge compression deformities seen involving the T8 vertebral body as well as the L1 vertebral body. ?Interval development of a mild compression deformity involving the T10 vertebral body. Assessment/Plan: Evan Flores is a 73 year old male who I am following in the Inter[facility] Disease Clinic for biopsy- proven IPF. Seems to be slowly declining over the last 6 months. Symptoms and imaging are not consistent with an exacerbation. This is likely the natural history of his disease. We discussed changing anti-fibrotic therapy but given that this was such a small drop he elected for a more conservative approach. Should his spirometry and/or symptoms be worse on follow-up we will likely change to nintedanib. He will continue 4 L supplemental oxygen with exertion. (J84.112) IPF (idiopathic pulmonary fibrosis) (HCC) (primary encounter diagnosis) (J96.11) Chronic hypoxemic respiratory failure (HCC) Comment: As above Plan: SPIROMETRY BASELINE ONLY, LUNG DIFFUSION CAPACITY (DLCO) Continue Pirfenidone 3 tabs by mouth 3 times a day with meals. LFTs every 3 months. I would like to see Evan Flores return to clinic in 3 months with spirometry/DLCO. Thank you for referring Evan Flores to the Interstitial Lung Disease Clinic at the [facility]. Should you have any questions or concerns do not hesitate to contact me. -Kirti Arango MD During this patient visit I have spent approximately 20 minutes out of 25 in counseling regarding treatment options and test results and coordinating care. CNOV Observed: 05/23/2018 Status: COMPLETED Source: [place] 12:55 PM [facility] REPOSITORY Office Visit (PULMMN) FLORESEVAN GABRIEL ([id number]) 1945 M Date Time Provider Department 05/23/18 12:55 PM KIRTI ARANGO During your visit today, we recorded the following information about you: Temperature Pulse Respiration Blood pressure 97.1 degrees 78/minute 16/minute 138/71 Weight Height 77.4 kg 1.854 m Kirti Arango MD 05/23/2018 1:37 PM Signed Consultation requested by Dr. Mai for an opinion regarding IPF. My final recommendations will be communicated back to the requesting physician by way of shared Medical record or letter to requesting physician via [place] mail. HPI: I had the pleasure of seeing vEan Flores in follow-up in the Interstitial Lung Disease Clinic at [facility] on May 23, 2018. As you are aware, he is a 73-year-old lifetime nonsmoker with a past medical history significant for MGUS, CKD and GERD who I have been following in the [facility] Clinic regarding biopsy-proven IPF. His biopsy was reviewed by [facility] Pathology and showed definitive UIP. He has been on Esbriet since 2015. ? He presents today for routine follow-up. Coughing more and bringing up more mucous. Dyspnea stable. Weight stabilized. 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 - GERD (gastroesophageal reflux disease) - HTN (hypertension) - Hyperglycemia - IPF (idiopathic pulmonary fibrosis) (HCC) diagnosed December 2013 - Renal insufficiency FAMILY HISTORY Problem Relation Age of Onset - Diabetes Mother - Hypertension Mother - Heart Mother heart failure - other (pulmonary fibrosis) Mother sister as well - Hypertension Father - Seizures Father - COPD Father - other (pulmonary fibosis) Sister lung disease,lung transplant - Heart Brother [place], s/p stent - other (Lung Disease) Brother Social History: Social History Substance Use Topics - Smoking status: Never Smoker - Smokeless tobacco: Never Used - Alcohol use 6.0 - 16.5 oz/week 2 Cans of Beer (12oz), 2 - 3 Mixed Drinks per week Comment: ocas Allergies:ALLERGIES No Known Allergies Current Medications: pantoprazole DR (PROTONIX) 40 mg tablet Take 1 tablet by mouth once daily. levothyroxine (SYNTHROID) 25 mcg tablet Take 1 tablet by mouth once daily. Take on empty stomach. For thyroid. CALCIUM CARBONATE/VITAMIN D3 (CALTRATE 600 + D ORAL) Take 1 tablet by mouth once daily. pravastatin (PRAVACHOL) 20 mg tablet Take 1 tablet by mouth daily at bedtime. amLODIPine (NORVASC) 5 mg tablet Take 1 tablet by mouth once daily. aspirin, enteric coated (ECOTRIN LOW STRENGTH) 81 mg EC tablet Take 1 tablet by mouth once daily. pirfenidone (ESBRIET) 267 mg capsule Take three (3) capsules by mouth three (3) times daily. PHYSICAL EXAM: Vital signs: BP 138/71 Pulse 78 Temp 97.1 Resp 16 Ht 6' 1 (1.85m) Wt 170 lb 10.2 oz (77.4kg) SpO2 97% BMI 22.52 kg/(m2). Gen: Well appearing, well nourished male in NAD, AANDOx3 CV: Regular rate and rhythm. Normal S1S2. No murmurs, gallops or rubs appreciated. Lungs: Good air movement. Minimal, late, inspiratory bibasilar crackles. No wheezes or rhonchi. Normal work of breathing. No accessory muscle use. MS: Extremities are warm and well perfused. No clubbing, cyanosis or edema appreciated. Labs: Pertinent labs reviewed. Spirometry/PFTs (05/23/2018): Spirometry suggests mild restriction. Gas exchange is severely impaired. Compared to his most recent prior spirometry both FVC and DLCO have declined. Pred LLN ULN Pre % FVC 4.76 3.75 5.77 3.65 77 FEV 1 3.47 2.62 4.33 2.99 86 FEV1%F 72.78 63.10 82.46 82.05 113 FEV 2 3.90 2.86 4.94 3.22 83 FEV 3 4.38 3.36 5.40 3.34 76 FEV3%E 89.76 85.12 94.40 91.49 102 MEF 50 4.40 2.78 6.03 6.93 157 FIF 50 6.37 MMEF 2.54 0.82 4.27 3.68 145 FE%FIF 108.77 FEV6 3.53 PEF 8.81 6.45 11.17 9.47 108 FET 13.24 FETPEF 0.10 VBe%FV 6.90 VBEex 0.25 DLCOSB 26.42 18.41 34.42 7.63 29 DL/VA 3.65 2.45 4.85 1.83 50 VA 7.37 6.00 8.74 4.17 57 SHAYNA 4.76 3.75 5.77 3.12 66 BHT 10.34 Oximetry with ambulation (04/09/2018): Decreased but adequate oximetry in room air at rest. Bora oxygen saturation with exertion was 87% on 3 L nasal cannula this improved to 90% on 4 L nasal cannula with exertion. Based on the study he does not qualify for supplemental oxygen at rest it does qualify for 4 L with exertion. InspO2* ? SpO2% ? ? HR Activity ?Feet ?Time ? MPH ?Flag RA ? 93 ? ? 78 resting RA ? 87 ? ? 92 walking, usual pace ? ?184 ?1.30 ?1.61 NC2 ?95 ? ? 82 resting NC2 ?87 ? ?103 walking, usual pace ? ?305 ?1.80 ?1.93 NC3 ?96 ? ? 85 resting NC3 ?87 ? ? 98 walking, usual pace ? ?380 ?2.30 ?1.88 NC4 ?97 ? ? 85 resting NC4 ?90 ? ?103 walking, usual pace ? ?515 ?3.00 ?1.95 NC4 ?97 ? ? 76 resting ? [address] Thorax (05/14/2018): I have personally reviewed the CT images and my findings as well as the formal radiology report (if available) are below. CT continues to show a UIP pattern. There seems to be a minimal amount of progression. No acute changes. Otherwise, as below. 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 ?Sequela of remote granulomatous disease. ?Stable subcentimeter bilateral pulmonary nodules. Stable mediastinal adenopathy. ?Prominent, less than 1 cm bilateral hilar lymph nodes are likely reactive. Again seen is right renal atrophy. Stable wedge compression deformities seen involving the T8 vertebral body as well as the L1 vertebral body. ?Interval development of a mild compression deformity involving the T10 vertebral body. Assessment/Plan: Evan Flores is a 73 year old male who I am following in the Interstitial Lung Disease Clinic for biopsy-proven IPF. Seems to be slowly declining over the last 6 months. Symptoms and imaging are not consistent with an exacerbation. This is likely the natural history of his disease. We discussed changing anti-fibrotic therapy but given that this was such a small drop he elected for a more conservative approach. Should his spirometry and/or symptoms be worse on follow-up we will likely change to nintedanib. He will continue 4 L supplemental oxygen with exertion. (J84.112) IPF (idiopathic pulmonary fibrosis) ([facility]) (primary encounter diagnosis) (J96.11) Chronic hypoxemic respiratory failure ([facility]) Comment: As above Plan: SPIROMETRY BASELINE ONLY, LUNG DIFFUSION CAPACITY (DLCO) Continue Pirfenidone 3 tabs by mouth 3 times a day with meals. LFTs every 3 months. I would like to see Evan Flores return to clinic in 3 months with spirometry/DLCO. Thank you for referring Evan Flores to the Interstitial Lung Disease Clinic at the [facility]. Should you have any questions or concerns do not hesitate to contact me. -Kirti Arango MD During this patient visit I have spent approximately 20 minutes out of 25 in counseling regarding treatment options and test results and coordinating care. Kirti Arango MD 05/23/2018 1:26 PM Signed Continue Esbriet. We will consider changing to Ofev at next visit. Referring Provider: KIRTI ARANGO [[id number]] Allergies As of Date: 05/23/2018 (No Known Allergies) Date Reviewed: 05/23/2018 Reviewed by: Jesús Grimes Ma - Fully Assessed Reason for Visit: Recheck [92] Primary Visit Diagnosis:IPF (idiopathic pulmonary fibrosis) ([facility]) [J84.112] Other Visit Diagnosis:Chronic hypoxemic respiratory failure ([facility]) [J96.11] Order(s):SPIROMETRY BASELINE ONLY [4082312] Order #: [id number] FUTURE LUNG DIFFUSION CAPACITY (DLCO) [5885355] Order #: [id number] FUTURE Prescriptions as of 05/23/2018 Sig: PANTOPRAZOLE 40 MG TABLET,DEL* Take 1 tablet by mouth once d* LEVOTHYROXINE 25 MCG TABLET Take 1 tablet by mouth once d* CALTRATE 600 + D ORAL Take 1 tablet by mouth once d* PRAVASTATIN 20 MG TABLET Take 1 tablet by mouth daily * AMLODIPINE 5 MG TABLET Take 1 tablet by mouth once d* ASPIRIN 81 MG TABLET,DELAYED * Take 1 tablet by mouth once d* PIRFENIDONE 267 MG CAPSULE Take three (3) capsules by mo* Problem List As Of Date 05/23/2018 Noted Resolved IPF (idiopathic pulmonary fibrosis) ([facility]) [J84.*INVALID FOR* CKD (chronic kidney disease) [N18.9] INVALID FOR* Hoarse voice quality [R49.0] INVALID FOR* GERD (gastroesophageal reflux disease) [K21.9] INVALID FOR* HTN (hypertension) [I10] INVALID FOR*11/07/2016 Gammopathy, 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 BPH (benign prostatic hyperplasia) [N40.0] INVALID FOR* Family history of ischemic heart disease [Z82.4*INVALID FOR* Coronary artery disease involving tyonek dougherty*INVALID FOR* More... 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 We will consider changing to Ofev at next visit. Disposition: Return in about 3 months (around 08/23/2018). Follow-up and Disposition History Recorded Letter Text Kirti Arango MD Staff Physician [facility] [place] [address] [place] [address] [address] [place] [id number] May 27, 2018 Kevin Mai MD [address] [place], [place] [id number] NAME:Evan Flores : [address] Mai, It was a pleasure to see your patient, Evan Flores, in the Pulmonary Department at the [facility], on May 23, 2018. Attached please find a copy of the visit summary. I appreciate having the opportunity to see your patient. If I can be of further assistance to you or if you have any questions regarding this report, please feel free to contact me. Sincerely, Kirti Arango MD Consultation requested by Dr. Mai for an opinion regarding IPF. My final recommendations will be communicated back to the requesting physician by way of shared Medical record or letter to requesting physician via [place] mail. HPI: I had the pleasure of seeing Evan Flores in follow-up in the Inter[facility] Disease Clinic at [facility] on May 23, 2018. As you are aware, he is a 73-year-old lifetime nonsmoker with a past medical history significant for MGUS, CKD and GERD who I have been following in the [facility] regarding biopsy-proven IPF. His biopsy was reviewed by [facility] Pathology and showed definitive UIP. He has been on Esbriet since 2014. ? He presents today for routine follow-up. Coughing more and bringing up more mucous. Dyspnea stable. Weight stabilized. 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 - GERD (gastroesophageal reflux disease) - HTN (hypertension) - Hyperglycemia - IPF (idiopathic pulmonary fibrosis) (HCC) diagnosed December 2013 - Renal insufficiency FAMILY HISTORY Problem Relation Age of Onset - Diabetes Mother - Hypertension Mother - Heart Mother heart failure - other (pulmonary fibrosis) Mother sister as well - Hypertension Father - Seizures Father - COPD Father - other (pulmonary fibosis) Sister lung disease,lung transplant - Heart Brother [place], s/p stent - other (Lung Disease) Brother Social History: Social History Substance Use Topics - Smoking status: Never Smoker - Smokeless tobacco: Never Used - Alcohol use 6.0 - 16.5 oz/week 2 Cans of Beer (12oz), 2 - 3 Mixed Drinks per week Comment: ocas Allergies:ALLERGIES No Known Allergies Current Medications: pantoprazole DR (PROTONIX) 40 mg tablet Take 1 tablet by mouth once daily. levothyroxine (SYNTHROID) 25 mcg tablet Take 1 tablet by mouth once daily. Take on empty stomach. For thyroid. CALCIUM CARBONATE/VITAMIN D3 (CALTRATE 600 + D ORAL) Take 1 tablet by mouth once daily. pravastatin (PRAVACHOL) 20 mg tablet Take 1 tablet by mouth daily at bedtime. amLODIPine (NORVASC) 5 mg tablet Take 1 tablet by mouth once daily. aspirin, enteric coated (ECOTRIN LOW STRENGTH) 81 mg EC tablet Take 1 tablet by mouth once daily. pirfenidone (ESBRIET) 267 mg capsule Take three (3) capsules by mouth three (3) times daily. PHYSICAL EXAM: Vital signs: BP 138/71 Pulse 78 Temp 97.1 Resp 16 Ht 6' 1 (1.85m) Wt 170 lb 10.2 oz (77.4kg) SpO2 97% BMI 22.52 kg/(m2). Gen: Well appearing, well nourished male in NAD, AANDOx3 CV: Regular rate and rhythm. Normal S1S2. No murmurs, gallops or rubs appreciated. Lungs: Good air movement. Minimal, late, inspiratory bibasilar crackles. No wheezes or rhonchi. Normal work of breathing. No accessory muscle use. MS: Extremities are warm and well perfused. No clubbing, cyanosis or edema appreciated. Labs: Pertinent labs reviewed. Spirometry/PFTs (05/23/2018): Spirometry suggests mild restriction. Gas exchange is severely impaired. Compared to his most recent prior spirometry both FVC and DLCO have declined. Pred LLN ULN Pre % FVC 4.76 3.75 5.77 3.65 77 FEV 1 3.47 2.62 4.33 2.99 86 FEV1%F 72.78 63.10 82.46 82.05 113 FEV 2 3.90 2.86 4.94 3.22 83 FEV 3 4.38 3.36 5.40 3.34 76 FEV3%E 89.76 85.12 94.40 91.49 102 MEF 50 4.40 2.78 6.03 6.93 157 FIF 50 6.37 MMEF 2.54 0.82 4.27 3.68 145 FE%FIF 108.77 FEV6 3.53 PEF 8.81 6.45 11.17 9.47 108 FET 13.24 FETPEF 0.10 VBe%FV 6.90 VBEex 0.25 DLCOSB 26.42 18.41 34.42 7.63 29 DL/VA 3.65 2.45 4.85 1.83 50 VA 7.37 6.00 8.74 4.17 57 SHAYNA 4.76 3.75 5.77 3.12 66 BHT 10.34 Oximetry with ambulation (04/09/2018): Decreased but adequate oximetry in room air at rest. [place] oxygen saturation with exertion was 87% on 3 L nasal cannula this improved to 90% on 4 L nasal cannula with exertion. Based on the study he does not qualify for supplemental oxygen at rest it does qualify for 4 L with exertion. InspO2* ? SpO2% ? ? HR Activity ?Feet ?Time ? MPH ?Flag RA ? 93 ? ? 78 resting RA ? 87 ? ? 92 walking, usual pace ? ?184 ?1.30 ?1.61 NC2 ?95 ? ? 82 resting NC2 ?87 ? ?103 walking, usual pace ? ?305 ?1.80 ?1.93 NC3 ?96 ? ? 85 resting NC3 ?87 ? ? 98 walking, usual pace ? ?380 ?2.30 ?1.88 NC4 ?97 ? ? 85 resting NC4 ?90 ? ?103 walking, usual pace ? ?515 ?3.00 ?1.95 NC4 ?97 ? ? 76 resting ? [address] Thorax (05/14/2018): I have personally reviewed the CT images and my findings as well as the formal radiology report (if available) are below. CT continues to show a UIP pattern. There seems to be a minimal amount of progression. No acute changes. Otherwise, as below. 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 Sequela of remote granulomatous disease. ?Stable subcentimeter bilateral pulmonary nodules. Stable mediastinal adenopathy. ?Prominent, less than 1 cm bilateral hilar lymph nodes are likely reactive. Again seen is right renal atrophy. Stable wedge compression deformities seen involving the T8 vertebral body as well as the L1 vertebral body. ?Interval development of a mild compression deformity involving the T10 vertebral body. Assessment/Plan: Evan Flores is a 73 year old male who I am following in the [facility] for biopsy-proven IPF. Seems to be slowly declining over the last 6 months. Symptoms and imaging are not consistent with an exacerbation. This is likely the natural history of his disease. We discussed changing anti-fibrotic therapy but given that this was such a small drop he elected for a more conservative approach. Should his spirometry and/or symptoms be worse on follow-up we will likely change to nintedanib. He will continue 4 L supplemental oxygen with exertion. (J84.112) IPF (idiopathic pulmonary fibrosis) ([facility]) (primary encounter diagnosis) (J96.11) Chronic hypoxemic respiratory failure ([facility]) Comment: As above Plan: SPIROMETRY BASELINE ONLY, LUNG DIFFUSION CAPACITY (DLCO) Continue Pirfenidone 3 tabs by mouth 3 times a day with meals. LFTs every 3 months. I would like to see Evan Flores return to clinic in 3 months with spirometry/DLCO. Thank you for referring Evan Flores to the [facility] at the [facility]. Should you have any questions or concerns do not hesitate to contact me. -Kirti Arango MD During this patient visit I have spent approximately 20 minutes out of 25 in counseling regarding treatment options and test results and coordinating care. Encounter Status:Closed by KIRTI ARANGO MD on 05/23/18 COMP METABOLIC PANEL Collected: 05/21/2018 Status: F Source: [place] 11:44 AM [facility] REPOSITORY TYPE CODE TESTS RESULT OUT OF REFERENCE UNITS RANGE LAB TP 6.3-8.0 g/dL Protein, Total 7.4 LAB ALB 3.9-4.9 g/dL Albumin 4.0 LAB CA 8.5-10.2 mg/dL Calcium, Total 9.3 LAB TBIL 0.2-1.3 mg/dL Bilirubin, Total 0.3 LAB ALKP 36-108 U/L Alkaline Phosphatase 53 LAB AST 14-40 U/L AST 27 LAB GLU 74-99 mg/dL Glucose 79 Result Comment: The [place] [employer] (ADA) provides guidance for cutoff values for fasting glucose and random glucose. The ADA defines fasting as no caloric intake for at least 8 hours. Fas ting plasma glucose results between 100 to 125 mg/dL indicate increased risk for diabetes (prediabetes). Fasting plasma glucose results greater than or equal to 126 mg/dL meet the criteria for diagnosis of diabetes. In the absence of unequivocal hyperglycemia, results should be confirmed by repeat testing. In a patient with classic symptoms of hyperglycemia or hyperglycemic crisis, random plasma glucose results greater than or equal to 200 mg/dL meet the criteria for diagnosis of diabetes. Reference: Standards of Medical Care in Diabetes 2016, [place] [employer]. Diabetes Care. 2016.39(Suppl 1). LAB BUN 9-24 mg/dL BUN 17 LAB CRET 0.73-1.22 mg/dL Creatinine 1.22 LAB NA 136-144 mmol/L Sodium 140 LAB K 3.7-5.1 mmol/L Potassium 4.3 LAB CL 97-105 mmol/L Chloride 99 LAB CO2 22-30 mmol/L CO2 30 LAB AGAP 9-18 mmol/L Anion Gap 11 LAB ALT 10-54 U/L ALT Low 6 LAB GFRAA eGFR- Amer. >60 LAB GFRNAA . eGFR-All Other Races 58 Result Comment: eGFR (Estimated GFR) Units of measure: mL/min/1.73 meters squared eGFR is derived from the reexpressed MDRD Study equation using the following parameters: serum creatinine, age, gender and race. The creatinine assay has been calibrated to be traceable to IDMS. An eGFR <60 mL/min/1.73m2 for >3 months is consistent with chronic kidney disease. Refer to KDOQI guidelines for clinical interpretation. In patients with unstable renal function, e.g. those with acute kidney injury, the eGFR may not accurately reflect actual GFR. Performed By: #### CMP #### [facility] [address] [place], [place] [address] PROGRESS Observed: 05/20/2018 Status: COMPLETED Source: [place] 10:35 AM CLINIC OTHER CAMPUS REPOSITORY HNO ID: [id number] Author: Angel HoEx PhysSharda Chavarria Service: (none) Author Type: Dryer And Washer Mechanic Type: Progress Notes Filed: 05/20/2018 10:35 AM Note Text: Patient exercised in phase 3 cardiopulmonary rehabilitation today. Patients vitals WNL. HOSP Observed: 05/20/2018 Status: COMPLETED Source: [place] 12:00 AM CLINIC OTHER [facility]AMP[facility] REPOSITORY Patient Update (CDPLM) EVAN FLORES ([id number]) 1945 M Date Time Provider Department 05/20/18 ANGEL CHVAARRIA (HARDIK PHYS) [facility] During your visit today, we recorded the following information about you: Hardik Arcos [facility] 05/20/2018 10:35 AM Signed Patient exercised in phase 3 cardiopulmonary rehabilitation today. Patients vitals WNL. Allergies As of Date: 05/20/2018 (No Known Allergies) Date Reviewed: 04/09/2018 Reviewed by: Jessica HoUPEKAlecia Law - Fully Assessed Prescriptions as of 05/20/2018 Sig: PANTOPRAZOLE 40 MG TABLET,DEL* Take 1 tablet by mouth once d* LEVOTHYROXINE 25 MCG TABLET Take 1 tablet by mouth once d* CALTRATE 600 + D ORAL Take 1 tablet by mouth once d* PRAVASTATIN 20 MG TABLET Take 1 tablet by mouth daily * AMLODIPINE 5 MG TABLET Take 1 tablet by mouth once d* ASPIRIN 81 MG TABLET,DELAYED * Take 1 tablet by mouth once d* PIRFENIDONE 267 MG CAPSULE Take three (3) capsules by mo* Problem List As Of Date 05/20/2018 Noted Resolved IPF (idiopathic pulmonary fibrosis) (HCC) [J84.*INVALID FOR* CKD (chronic kidney disease) [N18.9] INVALID FOR* Hoarse voice quality [R49.0] INVALID FOR* GERD (gastroesophageal reflux disease) [K21.9] INVALID FOR* HTN (hypertension) [I10] INVALID FOR*11/07/2016 Gammopathy, 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 BPH (benign prostatic hyperplasia) [N40.0] INVALID FOR* Family history of ischemic heart disease [Z82.4*INVALID FOR* Coronary artery disease involving tyonek dougherty*INVALID FOR* More... 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] INVALID FOR* Acute midline low back pain [M54.5] INVALID FOR* Chronic hypoxemic respiratory failure (HCC) [J9*INVALID FOR* Pulmonary infiltrate [R91.8] INVALID FOR* Abnormal weight loss [R63.4] INVALID FOR* Encounter Status:Closed by ANGEL CHAVARRIA on 05/20/18 PROGRESS Observed: 05/15/2018 Status: COMPLETED Source: [place] 10:30 AM [facility] REPOSITORY HNO ID: [id number] Author: Angel Han (Hardik Phys) Deon Service: (none) Author Type: Dryer And Washer Mechanic Type: Progress Notes Filed: 05/15/2018 10:30 AM Note Text: Patient exercised in phase 3 cardiopulmonary rehabilitation today. Patients vitals WNL. HOSP Observed: 05/15/2018 Status: COMPLETED Source: [place] 12:00 AM [facility] REPOSITORY Patient Update (CDPLM) EVAN FLORES ([id number]) 1945 M Date Time Provider Department 05/15/18 ANGEL CHAVARRIA (HARDIK PHYS) [facility] During your visit today, we recorded the following information about you: Hardik Arcos 05/15/2018 10:30 AM Signed Patient exercised in phase 3 cardiopulmonary rehabilitation today. Patients vitals WNL. Allergies As of Date: 05/15/2018 (No Known Allergies) Date Reviewed: 04/09/2018 Reviewed by: Jessica (Alecia) Alecia Tenorio - Fully Assessed Prescriptions as of 05/15/2018 Sig: PANTOPRAZOLE 40 MG TABLET,DEL* Take 1 tablet by mouth once d* LEVOTHYROXINE 25 MCG TABLET Take 1 tablet by mouth once d* CALTRATE 600 + D ORAL Take 1 tablet by mouth once d* PRAVASTATIN 20 MG TABLET Take 1 tablet by mouth daily * AMLODIPINE 5 MG TABLET Take 1 tablet by mouth once d* ASPIRIN 81 MG TABLET,DELAYED * Take 1 tablet by mouth once d* PIRFENIDONE 267 MG CAPSULE Take three (3) capsules by mo* Problem List As Of Date 05/15/2018 Noted Resolved IPF (idiopathic pulmonary fibrosis) (HCC) [J84.*INVALID FOR* CKD (chronic kidney disease) [N18.9] INVALID FOR* Hoarse voice quality [R49.0] INVALID FOR* GERD (gastroesophageal reflux disease) [K21.9] INVALID FOR* HTN (hypertension) [I10] INVALID FOR*11/07/2016 Gammopathy, 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 BPH (benign prostatic hyperplasia) [N40.0] INVALID FOR* Family history of ischemic heart disease [Z82.4*INVALID FOR* Coronary artery disease involving tyonek dougherty*INVALID FOR* More... 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] INVALID FOR* Acute midline low back pain [M54.5] INVALID FOR* Chronic hypoxemic respiratory failure (HCC) [J9*INVALID FOR* Pulmonary infiltrate [R91.8] INVALID FOR* Abnormal weight loss [R63.4] INVALID FOR* Encounter Status:Closed by ANGEL CHAVARRIA on 05/15/18 CT CHEST WO IVCON Observed: 05/14/2018 Status: F Source: [place] 8:18 AM [facility] [place] REPOSITORY * * *Final Report* * * DATE OF EXAM: May 14 2018 8:18AM [facility] 0541 - CT CHEST WO IVCON / PROCEDURE REASON: Other nonspecific abnormal finding of lung field * * * * Physician Interpretation * * * * EXAMINATION: CHEST CT WITHOUT CONTRAST CLINICAL HISTORY: Other nonspecific abnormal finding of lung field Technique: Spiral CT acquisition of the chest from the thoracic inlet to the upper abdomen without contrast. MQ: CTCWOR_[id number] CT Dose-Length Product: 297 mGy*cm CT Dose Reduction Employed: mAs-kVp adjusted based on patient size-age Comparison: 05/14/2017 RESULT: Limitations: None. Lines, tubes, and devices: None. Lung parenchyma and pleura: There is reticulation seen within the periphery of the lungs and lower lobes, bilaterally, with associated traction bronchiectasis, stable in CT appearance, when compared the prior examination. Associated regions of honeycombing within both lungs, consistent with pulmonary fibrosis. Calcified granulomas are again seen within the lungs. Additionally, there are stable subcentimeter noncalcified bilateral pulmonary nodules. There is no CT evidence for pneumonia. There is no pleural effusion, endobronchial lesion, or pneumothorax. Thoracic inlet, heart, and mediastinum: There is stable mediastinal adenopathy. For example, a subcarinal lymph node measures approximately 1.5 cm short axis dimension, stable (series 2, image #107). There are prominent, less than 1 cm bilateral hilar lymph nodes, stable and likely reactive. No francine axillary adenopathy is identified. Atherosclerotic calcifications are present within the thoracic aorta. Stent seen within the LAD. The heart is stable in size. There is no significant pericardial effusion. Bones and soft tissues: There is osteopenia, scoliosis, and multilevel degenerative change seen within the thoracic spine. Stable wedge compression deformities seen involving the T8 vertebral body as well as the L1 vertebral body. Interval development of a mild compression deformity involving the T10 vertebral body. Upper abdomen: There is right renal atrophy, when compared to the left. Associated mild bilateral perinephric fat stranding. Although nonspecific wall thickening of the stomach may relate to underdistention, gastritis is not excluded. Gallbladder is relatively collapsed but is otherwise unremarkable. 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 Sequela of remote granulomatous disease. Stable subcentimeter bilateral pulmonary nodules. Stable mediastinal adenopathy. Prominent, less than 1 cm bilateral hilar lymph nodes are likely reactive. Again seen is right renal atrophy. Stable wedge compression deformities seen involving the T8 vertebral body as well as the L1 vertebral body. Interval development of a mild compression deformity involving the T10 vertebral body. Hairspring Ii Inspector: GOLDEN Transcribe Date/Time: May 14 2018 9:23A Dictated by : JEANINE SUAREZ MD This examination was interpreted and the report reviewed and electronically signed by: JEANINE SUAREZ MD on May 14 2018 9:28AM EST [id number] PROGRESS Observed: 05/13/2018 Status: COMPLETED Source: [place] 10:39 AM [facility] REPOSITORY HNO ID: [id number] Author: Angel Han (Ex Phys) Deon Service: (none) Author Type: Dryer And Washer Mechanic Type: Progress Notes Filed: 05/13/2018 10:39 AM Note Text: Patient exercised in phase 3 cardiopulmonary rehabilitation today. Patients vitals WNL. HOSP Observed: 05/13/2018 Status: COMPLETED Source: [place] 12:00 AM [facility] REPOSITORY [facility] EVAN FLORES ([id number]) 1945 M Date Time Provider Department 05/13/18 ANGEL CHAVARRIA PHYS) [facility] During your visit today, we recorded the following information about you: Hardik Arcos Ph 05/13/2018 10:39 AM Signed Patient exercised in phase 3 cardiopulmonary rehabilitation today. Patients vitals WNL. Allergies As of Date: 05/13/2018 (No Known Allergies) Date Reviewed: 04/09/2018 Reviewed by: Alecia Simon (Tech) - Fully Assessed Prescriptions as of 05/13/2018 Sig: PANTOPRAZOLE 40 MG TABLET,DEL* Take 1 tablet by mouth once d* LEVOTHYROXINE 25 MCG TABLET Take 1 tablet by mouth once d* CALTRATE 600 + D ORAL Take 1 tablet by mouth once d* PRAVASTATIN 20 MG TABLET Take 1 tablet by mouth daily * AMLODIPINE 5 MG TABLET Take 1 tablet by mouth once d* ASPIRIN 81 MG TABLET,DELAYED * Take 1 tablet by mouth once d* PIRFENIDONE 267 MG CAPSULE Take three (3) capsules by mo* Problem List As Of Date 05/13/2018 Noted Resolved IPF (idiopathic pulmonary fibrosis) (HCC) [J84.*INVALID FOR* CKD (chronic kidney disease) [N18.9] INVALID FOR* Hoarse voice quality [R49.0] INVALID FOR* GERD (gastroesophageal reflux disease) [K21.9] INVALID FOR* HTN (hypertension) [I10] INVALID FOR*11/07/2016 Gammopathy, 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 BPH (benign prostatic hyperplasia) [N40.0] INVALID FOR* Family history of ischemic heart disease [Z82.4*INVALID FOR* Coronary artery disease involving tyonek dougherty*INVALID FOR* More... 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] INVALID FOR* Acute midline low back pain [M54.5] INVALID FOR* Chronic hypoxemic respiratory failure (HCC) [J9*INVALID FOR* Pulmonary infiltrate [R91.8] INVALID FOR* Abnormal weight loss [R63.4] INVALID FOR* Encounter Status:Closed by ANGEL CHAVARRIA on 05/13/18 PROGRESS Observed: 05/08/2018 Status: COMPLETED Source: [place] 10:29 AM [facility] REPOSITORY HNO ID: [id number] Author: Angel Han (Ex Phys) Deon Service: (none) Author Type: Dryer And Washer Mechanic Type: Progress Notes Filed: 05/08/2018 10:29 AM Note Text: Patient exercised in phase 3 cardiopulmonary rehabilitation today. Patients vitals WNL. HOSP Observed: 05/08/2018 Status: COMPLETED Source: [place] 12:00 AM [facility] REPOSITORY Patient Update ([facility]) EVAN FLORES ([id number]) 1945 M Date Time Provider Department 05/08/18 ANGEL CHAVARRIA (EX PHYS) [facility] During your visit today, we recorded the following information about you: Hardik Arcos Phy 05/08/2018 10:29 AM Signed Patient exercised in phase 3 cardiopulmonary rehabilitation today. Patients vitals WNL. Allergies As of Date: 05/08/2018 (No Known Allergies) Date Reviewed: 04/09/2018 Reviewed by: Jessica HoUPEK) Alecia Tenorio - Fully Assessed Prescriptions as of 05/08/2018 Sig: PANTOPRAZOLE 40 MG TABLET,DEL* Take 1 tablet by mouth once d* LEVOTHYROXINE 25 MCG TABLET Take 1 tablet by mouth once d* CALTRATE 600 + D ORAL Take 1 tablet by mouth once d* PRAVASTATIN 20 MG TABLET Take 1 tablet by mouth daily * AMLODIPINE 5 MG TABLET Take 1 tablet by mouth once d* ASPIRIN 81 MG TABLET,DELAYED * Take 1 tablet by mouth once d* PIRFENIDONE 267 MG CAPSULE Take three (3) capsules by mo* Problem List As Of Date 05/08/2018 Noted Resolved IPF (idiopathic pulmonary fibrosis) (HCC) [J84.*INVALID FOR* CKD (chronic kidney disease) [N18.9] INVALID FOR* Hoarse voice quality [R49.0] INVALID FOR* GERD (gastroesophageal reflux disease) [K21.9] INVALID FOR* HTN (hypertension) [I10] INVALID FOR*11/07/2016 Gammopathy, 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 BPH (benign prostatic hyperplasia) [N40.0] INVALID FOR* Family history of ischemic heart disease [Z82.4*INVALID FOR* Coronary artery disease involving tyonek dougherty*INVALID FOR* More... 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] INVALID FOR* Acute midline low back pain [M54.5] INVALID FOR* Chronic hypoxemic respiratory failure (HCC) [J9*INVALID FOR* Pulmonary infiltrate [R91.8] INVALID FOR* Abnormal weight loss [R63.4] INVALID FOR* Encounter Status:Closed by ANGEL CHAVARRIA on 05/08/18 PROGRESS Observed: 05/05/2018 Status: COMPLETED Source: [place] 12:49 PM [facility] REPOSITORY HNO ID: [id number] Author: Angel HoEx Phys) Deon Service: (none) Author Type: Dryer And Washer Mechanic Type: Progress Notes Filed: 05/05/2018 12:49 PM Note Text: Patient exercised in phase 3 cardiopulmonary rehabilitation today. Patients vitals WNL. HOSP Observed: 05/05/2018 Status: COMPLETED Source: [place] 12:00 AM [facility] REPOSITORY [facility] EVAN FLORES ([id number]) 1945 M Date Time Provider Department 05/05/18 ANGEL CHAVARRIA PHYS) [facility] During your visit today, we recorded the following information about you: Hardik Arcos Phy 05/05/2018 12:49 PM Signed Patient exercised in phase 3 cardiopulmonary rehabilitation today. Patients vitals WNL. Allergies As of Date: 05/05/2018 (No Known Allergies) Date Reviewed: 04/09/2018 Reviewed by: Alecia Simon (Tech) - Fully Assessed Prescriptions as of 05/05/2018 Sig: PANTOPRAZOLE 40 MG TABLET,DEL* Take 1 tablet by mouth once d* LEVOTHYROXINE 25 MCG TABLET Take 1 tablet by mouth once d* CALTRATE 600 + D ORAL Take 1 tablet by mouth once d* PRAVASTATIN 20 MG TABLET Take 1 tablet by mouth daily * AMLODIPINE 5 MG TABLET Take 1 tablet by mouth once d* ASPIRIN 81 MG TABLET,DELAYED * Take 1 tablet by mouth once d* PIRFENIDONE 267 MG CAPSULE Take three (3) capsules by mo* Problem List As Of Date 05/05/2018 Noted Resolved IPF (idiopathic pulmonary fibrosis) (HCC) [J84.*INVALID FOR* CKD (chronic kidney disease) [N18.9] INVALID FOR* Hoarse voice quality [R49.0] INVALID FOR* GERD (gastroesophageal reflux disease) [K21.9] INVALID FOR* HTN (hypertension) [I10] INVALID FOR*11/07/2016 Gammopathy, 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 BPH (benign prostatic hyperplasia) [N40.0] INVALID FOR* Family history of ischemic heart disease [Z82.4*INVALID FOR* Coronary artery disease involving tyonek dougherty*INVALID FOR* More... 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] INVALID FOR* Acute midline low back pain [M54.5] INVALID FOR* Chronic hypoxemic respiratory failure (HCC) [J9*INVALID FOR* Pulmonary infiltrate [R91.8] INVALID FOR* Abnormal weight loss [R63.4] INVALID FOR* Encounter Status:Closed by ANGEL CHAVARRIA on 05/05/18 PROGRESS Observed: 05/01/2018 Status: COMPLETED Source: [place] 10:33 AM [facility] REPOSITORY HNO ID: [id number] Author: Angel Han (Ex Phys) Deon Service: (none) Author Type: Dryer And Washer Mechanic Type: Progress Notes Filed: 05/01/2018 10:33 AM Note Text: Patient exercised in phase 3 cardiopulmonary rehabilitation today. Patients vitals WNL. HOSP Observed: 05/01/2018 Status: COMPLETED Source: [place] 12:00 AM [facility] REPOSITORY Patient Update ([facility] FLORESEVAN GABRIEL ([id number]) 1945 M Date Time Provider Department 05/01/18 ANGEL CHAVARRIA (EX PHYS) [facility] During your visit today, we recorded the following information about you: Angel Chavarria, Ex Phy 05/01/2018 10:33 AM Signed Patient exercised in phase 3 cardiopulmonary rehabilitation today. Patients vitals WNL. Allergies As of Date: 05/01/2018 (No Known Allergies) Date Reviewed: 04/09/2018 Reviewed by: Jessica (Tech) Alecia Tenorio - Fully Assessed Prescriptions as of 05/01/2018 Sig: PANTOPRAZOLE 40 MG TABLET,DEL* Take 1 tablet by mouth once d* LEVOTHYROXINE 25 MCG TABLET Take 1 tablet by mouth once d* CALTRATE 600 + D ORAL Take 1 tablet by mouth once d* PRAVASTATIN 20 MG TABLET Take 1 tablet by mouth daily * AMLODIPINE 5 MG TABLET Take 1 tablet by mouth once d* ASPIRIN 81 MG TABLET,DELAYED * Take 1 tablet by mouth once d* PIRFENIDONE 267 MG CAPSULE Take three (3) capsules by mo* Problem List As Of Date 05/01/2018 Noted Resolved IPF (idiopathic pulmonary fibrosis) (HCC) [J84.*INVALID FOR* CKD (chronic kidney disease) [N18.9] INVALID FOR* Hoarse voice quality [R49.0] INVALID FOR* GERD (gastroesophageal reflux disease) [K21.9] INVALID FOR* HTN (hypertension) [I10] INVALID FOR*11/07/2016 Gammopathy, 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 BPH (benign prostatic hyperplasia) [N40.0] INVALID FOR* Family history of ischemic heart disease [Z82.4*INVALID FOR* Coronary artery disease involving tyonek dougherty*INVALID FOR* More... 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] INVALID FOR* Acute midline low back pain [M54.5] INVALID FOR* Chronic hypoxemic respiratory failure (HCC) [J9*INVALID FOR* Pulmonary infiltrate [R91.8] INVALID FOR* Abnormal weight loss [R63.4] INVALID FOR* Encounter Status:Closed by ANGEL CHAVARRIA on 05/01/18 PROGRESS Observed: 04/24/2018 Status: COMPLETED Source: [place] 10:22 AM [facility] REPOSITORY HNO ID: [id number] Author: Angel Han (Ex Phys) Deon Service: (none) Author Type: Dryer And Washer Mechanic Type: Progress Notes Filed: 04/24/2018 10:22 AM Note Text: Patient exercised in phase 3 cardiopulmonary rehabilitation today. Patients vitals WNL. HOSP Observed: 04/24/2018 Status: COMPLETED Source: [place] 12:00 AM [facility] REPOSITORY Patient Update ([facility]) EVAN FLORES ([id number]) 1945 M Date Time Provider Department 04/24/18 ANGEL CHAVARRIA (EX PHYS) [facility] During your visit today, we recorded the following information about you: Hardik Arcos Ph 04/24/2018 10:22 AM Signed Patient exercised in phase 3 cardiopulmonary rehabilitation today. Patients vitals WNL. Allergies As of Date: 04/24/2018 (No Known Allergies) Date Reviewed: 04/09/2018 Reviewed by: Alecia Simon (Tech) - Fully Assessed Prescriptions as of 04/24/2018 Sig: PANTOPRAZOLE 40 MG TABLET,DEL* Take 1 tablet by mouth once d* LEVOTHYROXINE 25 MCG TABLET Take 1 tablet by mouth once d* CALTRATE 600 + D ORAL Take 1 tablet by mouth once d* PRAVASTATIN 20 MG TABLET Take 1 tablet by mouth daily * AMLODIPINE 5 MG TABLET Take 1 tablet by mouth once d* ASPIRIN 81 MG TABLET,DELAYED * Take 1 tablet by mouth once d* PIRFENIDONE 267 MG CAPSULE Take three (3) capsules by mo* Problem List As Of Date 04/24/2018 Noted Resolved IPF (idiopathic pulmonary fibrosis) (HCC) [J84.*INVALID FOR* CKD (chronic kidney disease) [N18.9] INVALID FOR* Hoarse voice quality [R49.0] INVALID FOR* GERD (gastroesophageal reflux disease) [K21.9] INVALID FOR* HTN (hypertension) [I10] INVALID FOR*11/07/2016 Gammopathy, 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 BPH (benign prostatic hyperplasia) [N40.0] INVALID FOR* Family history of ischemic heart disease [Z82.4*INVALID FOR* Coronary artery disease involving tyonek dougherty*INVALID FOR* More... 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] INVALID FOR* Acute midline low back pain [M54.5] INVALID FOR* Chronic hypoxemic respiratory failure (HCC) [J9*INVALID FOR* Pulmonary infiltrate [R91.8] INVALID FOR* Abnormal weight loss [R63.4] INVALID FOR* Encounter Status:Closed by ANGEL CHAVARRIA on 04/24/18 PROGRESS Observed: 04/22/2018 Status: COMPLETED Source: [place] 10:29 AM [facility] REPOSITORY HNO ID: [id number] Author: Angel Han (Ex Phys) Deon Service: (none) Author Type: Dryer And Washer Mechanic Type: Progress Notes Filed: 04/22/2018 10:29 AM Note Text: Patient exercised in phase 3 cardiopulmonary rehabilitation today. Patients vitals WNL. HOSP Observed: 04/22/2018 Status: COMPLETED Source: [place] 12:00 AM [facility] REPOSITORY Patient Update ([facility]) EVAN FLORES ([id number]) 1945 M Date Time Provider Department 04/22/18 ANGEL CHAVARRIA (EX PHYS) [facility] During your visit today, we recorded the following information about you: Angel Chavarria, Ex Phy 04/22/2018 10:29 AM Signed Patient exercised in phase 3 cardiopulmonary rehabilitation today. Patients vitals WNL. Allergies As of Date: 04/22/2018 (No Known Allergies) Date Reviewed: 04/09/2018 Reviewed by: Alecia Simon (Tech) - Fully Assessed Prescriptions as of 04/22/2018 Sig: PANTOPRAZOLE 40 MG TABLET,DEL* Take 1 tablet by mouth once d* LEVOTHYROXINE 25 MCG TABLET Take 1 tablet by mouth once d* CALTRATE 600 + D ORAL Take 1 tablet by mouth once d* PRAVASTATIN 20 MG TABLET Take 1 tablet by mouth daily * AMLODIPINE 5 MG TABLET Take 1 tablet by mouth once d* ASPIRIN 81 MG TABLET,DELAYED * Take 1 tablet by mouth once d* PIRFENIDONE 267 MG CAPSULE Take three (3) capsules by mo* Problem List As Of Date 04/22/2018 Noted Resolved IPF (idiopathic pulmonary fibrosis) (HCC) [J84.*INVALID FOR* CKD (chronic kidney disease) [N18.9] INVALID FOR* Hoarse voice quality [R49.0] INVALID FOR* GERD (gastroesophageal reflux disease) [K21.9] INVALID FOR* HTN (hypertension) [I10] INVALID FOR*11/07/2016 Gammopathy, 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 BPH (benign prostatic hyperplasia) [N40.0] INVALID FOR* Family history of ischemic heart disease [Z82.4*INVALID FOR* Coronary artery disease involving tyonek dougherty*INVALID FOR* More... 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] INVALID FOR* Acute midline low back pain [M54.5] INVALID FOR* Chronic hypoxemic respiratory failure (HCC) [J9*INVALID FOR* Pulmonary infiltrate [R91.8] INVALID FOR* Abnormal weight loss [R63.4] INVALID FOR* Encounter Status:Closed by ANGEL CHAVARRIA on 04/22/18 PROGRESS Observed: 04/17/2018 Status: COMPLETED Source: [place] 10:25 AM [facility] REPOSITORY HNO ID: [id number] Author: Angel Han (Hardik Chavarria Service: (none) Author Type: Dryer And Washer Mechanic Type: Progress Notes Filed: 04/17/2018 10:26 AM Note Text: Patient exercised in phase 3 cardiopulmonary rehabilitation today. Patients vitals WNL. HOSP Observed: 04/17/2018 Status: COMPLETED Source: [place] 12:00 AM [facility] REPOSITORY Patient Update ([facility]) EVAN FLORES ([id number]) 1945 M Date Time Provider Department 04/17/18 ANGEL CHAVARRIA (EX PHYS) [facility] During your visit today, we recorded the following information about you: Hardik Arcos [facility] 04/17/2018 10:26 AM Signed Patient exercised in phase 3 cardiopulmonary rehabilitation today. Patients vitals WNL. Allergies As of Date: 04/17/2018 (No Known Allergies) Date Reviewed: 04/09/2018 Reviewed by: Alecia Simon (Tech) - Fully Assessed Prescriptions as of 04/17/2018 Sig: PANTOPRAZOLE 40 MG TABLET,DEL* Take 1 tablet by mouth once d* LEVOTHYROXINE 25 MCG TABLET Take 1 tablet by mouth once d* CALTRATE 600 + D ORAL Take 1 tablet by mouth once d* PRAVASTATIN 20 MG TABLET Take 1 tablet by mouth daily * AMLODIPINE 5 MG TABLET Take 1 tablet by mouth once d* ASPIRIN 81 MG TABLET,DELAYED * Take 1 tablet by mouth once d* PIRFENIDONE 267 MG CAPSULE Take three (3) capsules by mo* Problem List As Of Date 04/17/2018 Noted Resolved IPF (idiopathic pulmonary fibrosis) ([facility]) [J84.*INVALID FOR* CKD (chronic kidney disease) [N18.9] INVALID FOR* Hoarse voice quality [R49.0] INVALID FOR* GERD (gastroesophageal reflux disease) [K21.9] INVALID FOR* HTN (hypertension) [I10] INVALID FOR*11/07/2016 Gammopathy, 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 BPH (benign prostatic hyperplasia) [N40.0] INVALID FOR* Family history of ischemic heart disease [Z82.4*INVALID FOR* Coronary artery disease involving tyonek dougherty*INVALID FOR* More... 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] INVALID FOR* Acute midline low back pain [M54.5] INVALID FOR* Chronic hypoxemic respiratory failure (HCC) [J9*INVALID FOR* Pulmonary infiltrate [R91.8] INVALID FOR* Abnormal weight loss [R63.4] INVALID FOR* Encounter Status:Closed by ANGEL CHAVARRIA on 04/17/18 PROGRESS Observed: 04/15/2018 Status: COMPLETED Source: [place] 10:24 AM [facility] REPOSITORY HNO ID: [id number] Author: Angel Luciano) Deon Service: (none) Author Type: Dryer And Washer Mechanic Type: Progress Notes Filed: 04/15/2018 10:24 AM Note Text: Patient exercised in phase 3 cardiopulmonary rehabilitation today. Patients vitals WNL. HOSP Observed: 04/15/2018 Status: COMPLETED Source: [place] 12:00 AM [facility] REPOSITORY Patient Update ([facility]) EVAN FLORES ([id number]) 1945 M Date Time Provider Department 04/15/18 ANGEL CHAVARRIA (HARDIK PHYS) [facility] During your visit today, we recorded the following information about you: Hardik Arcos 04/15/2018 10:24 AM Signed Patient exercised in phase 3 cardiopulmonary rehabilitation today. Patients vitals WNL. Allergies As of Date: 04/15/2018 (No Known Allergies) Date Reviewed: 04/09/2018 Reviewed by: Alecia Simon (Tech) - Fully Assessed Prescriptions as of 04/15/2018 Sig: PANTOPRAZOLE 40 MG TABLET,DEL* Take 1 tablet by mouth once d* LEVOTHYROXINE 25 MCG TABLET Take 1 tablet by mouth once d* CALTRATE 600 + D ORAL Take 1 tablet by mouth once d* PRAVASTATIN 20 MG TABLET Take 1 tablet by mouth daily * AMLODIPINE 5 MG TABLET Take 1 tablet by mouth once d* ASPIRIN 81 MG TABLET,DELAYED * Take 1 tablet by mouth once d* PIRFENIDONE 267 MG CAPSULE Take three (3) capsules by mo* Problem List As Of Date 04/15/2018 Noted Resolved IPF (idiopathic pulmonary fibrosis) (HCC) [J84.*INVALID FOR* CKD (chronic kidney disease) [N18.9] INVALID FOR* Hoarse voice quality [R49.0] INVALID FOR* GERD (gastroesophageal reflux disease) [K21.9] INVALID FOR* HTN (hypertension) [I10] INVALID FOR*11/07/2016 Gammopathy, 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 BPH (benign prostatic hyperplasia) [N40.0] INVALID FOR* Family history of ischemic heart disease [Z82.4*INVALID FOR* Coronary artery disease involving tyonek dougherty*INVALID FOR* More... 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] INVALID FOR* Acute midline low back pain [M54.5] INVALID FOR* Chronic hypoxemic respiratory failure (HCC) [J9*INVALID FOR* Pulmonary infiltrate [R91.8] INVALID FOR* Abnormal weight loss [R63.4] INVALID FOR* Encounter Status:Closed by ANGEL CHAVARRIA on 04/15/18 PROGRESS Observed: 04/10/2018 Status: COMPLETED Source: [place] 10:39 AM [facility] REPOS[facility] HNO ID: [id number] Author: Angel HoEx Phys) Deon Service: (none) Author Type: Dryer And Washer Mechanic Type: Progress Notes Filed: 04/10/2018 10:40 AM Note Text: Patient exercised in phase 3 cardiopulmonary rehabilitation today. Patients vitals WNL. HOSP Observed: 04/10/2018 Status: COMPLETED Source: [place] 12:00 AM [facility] REPOSITORY Patient Update ([facility]) EVAN FLORES ([id number]) 1945 M Date Time Provider Department 04/10/18 ANGEL CHAVARRIA (EX PHYS) [facility] During your visit today, we recorded the following information about you: Hardik Arcos Ph 04/10/2018 10:40 AM Signed Patient exercised in phase 3 cardiopulmonary rehabilitation today. Patients vitals WNL. Allergies As of Date: 04/10/2018 (No Known Allergies) Date Reviewed: 04/09/2018 Reviewed by: Alecia Simon (Tech) - Fully Assessed Prescriptions as of 04/10/2018 Sig: PANTOPRAZOLE 40 MG TABLET,DEL* Take 1 tablet by mouth once d* LEVOTHYROXINE 25 MCG TABLET Take 1 tablet by mouth once d* CALTRATE 600 + D ORAL Take 1 tablet by mouth once d* PRAVASTATIN 20 MG TABLET Take 1 tablet by mouth daily * AMLODIPINE 5 MG TABLET Take 1 tablet by mouth once d* ASPIRIN 81 MG TABLET,DELAYED * Take 1 tablet by mouth once d* PIRFENIDONE 267 MG CAPSULE Take three (3) capsules by mo* Problem List As Of Date 04/10/2018 Noted Resolved IPF (idiopathic pulmonary fibrosis) (HCC) [J84.*INVALID FOR* CKD (chronic kidney disease) [N18.9] INVALID FOR* Hoarse voice quality [R49.0] INVALID FOR* GERD (gastroesophageal reflux disease) [K21.9] INVALID FOR* HTN (hypertension) [I10] INVALID FOR*11/07/2016 Gammopathy, 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 BPH (benign prostatic hyperplasia) [N40.0] INVALID FOR* Family history of ischemic heart disease [Z82.4*INVALID FOR* Coronary artery disease involving tyonek dougherty*INVALID FOR* More... 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] INVALID FOR* Acute midline low back pain [M54.5] INVALID FOR* Chronic hypoxemic respiratory failure (HCC) [J9*INVALID FOR* Pulmonary infiltrate [R91.8] INVALID FOR* Abnormal weight loss [R63.4] INVALID FOR* Encounter Status:Closed by ANGEL CHAVARRIA on 04/10/18 PROGRESS Observed: 04/08/2018 Status: COMPLETED Source: [place] 10:32 AM [facility] REPOSITORY O ID: [id number] Author: Angel Chavarria (Ex Phys) Service: (none) Author Type: Dryer And Washer Mechanic Type: Progress Notes Filed: 04/08/2018 10:32 AM Note Text: Patient exercised in phase 3 cardiopulmonary rehabilitation today. Patients vitals WNL. HOSP Observed: 04/08/2018 Status: COMPLETED Source: [place] 12:00 AM [facility] REPOSITORY Patient Update (CD[facility]) EVAN FLORES ([id number]) 1945 M Date Time Provider Department 04/08/18 ANGEL CHAVARRIA PHYS) [facility] During your visit today, we recorded the following information about you: Hardik Arcos 04/08/2018 10:32 AM Signed Patient exercised in phase 3 cardiopulmonary rehabilitation today. Patients vitals WNL. Allergies As of Date: 04/08/2018 (No Known Allergies) Date Reviewed: 01/22/2018 Reviewed by: Selena Rust - Fully Assessed Prescriptions as of 04/08/2018 Sig: PANTOPRAZOLE 40 MG TABLET,DEL* Take 1 tablet by mouth once d* LEVOTHYROXINE 25 MCG TABLET Take 1 tablet by mouth once d* CALTRATE 600 + D ORAL Take 1 tablet by mouth once d* PRAVASTATIN 20 MG TABLET Take 1 tablet by mouth daily * AMLODIPINE 5 MG TABLET Take 1 tablet by mouth once d* ASPIRIN 81 MG TABLET,DELAYED * Take 1 tablet by mouth once d* PIRFENIDONE 267 MG CAPSULE Take three (3) capsules by mo* Problem List As Of Date 04/08/2018 Noted Resolved IPF (idiopathic pulmonary fibrosis) (HCC) [J84.*INVALID FOR* CKD (chronic kidney disease) [N18.9] INVALID FOR* Hoarse voice quality [R49.0] INVALID FOR* GERD (gastroesophageal reflux disease) [K21.9] INVALID FOR* HTN (hypertension) [I10] INVALID FOR*11/07/2016 Gammopathy, 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 BPH (benign prostatic hyperplasia) [N40.0] INVALID FOR* Family history of ischemic heart disease [Z82.4*INVALID FOR* Coronary artery disease involving tyonek dougherty*INVALID FOR* More... 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] INVALID FOR* Acute midline low back pain [M54.5] INVALID FOR* Chronic hypoxemic respiratory failure (HCC) [J9*INVALID FOR* Pulmonary infiltrate [R91.8] INVALID FOR* Abnormal weight loss [R63.4] INVALID FOR* Encounter Status:Closed by ANGEL CHAVARRIA on 04/08/18 EITAN Observed: 04/04/2018 Status: COMPLETED Source: [place] 12:00 AM [facility] REPOSITORY Telephone (PULN) EVAN FLORES ([id number]) 1945 M Date Time Provider Department 04/04/18 KIRTI ARANGO During your visit today, we recorded the following information about you: Leonor Martell Bid Clerk 04/04/2018 9:30 AM Signed Patient states that his intake of oxygen has increased since Oct appointment. Patient is asking if he can have walk test done locally before 05/23 appointment Kirti Arango MD 04/04/2018 12:27 PM Signed Addended by: KIRTI ARANGO MD on: 04/04/2018 12:27 PM Modules accepted: Orders, SmartSet Allergies As of Date: 04/04/2018 (No Known Allergies) Date Reviewed: 01/22/2018 Reviewed by: Selena Rust - Fully Assessed Reason for Visit: Testing [Other] Primary Visit Diagnosis:IPF (idiopathic pulmonary fibrosis) ([facility]) [J84.112] Order(s):OXIMETRY WITH AMBULATION [1612011] Order #: [id number] FUTURE Prescriptions as of 04/04/2018 Sig: PANTOPRAZOLE 40 MG TABLET,DEL* Take 1 tablet by mouth once d* LEVOTHYROXINE 25 MCG TABLET Take 1 tablet by mouth once d* CALTRATE 600 + D ORAL Take 1 tablet by mouth once d* PRAVASTATIN 20 MG TABLET Take 1 tablet by mouth daily * AMLODIPINE 5 MG TABLET Take 1 tablet by mouth once d* ASPIRIN 81 MG TABLET,DELAYED * Take 1 tablet by mouth once d* PIRFENIDONE 267 MG CAPSULE Take three (3) capsules by mo* Problem List As Of Date 04/04/2018 Noted Resolved IPF (idiopathic pulmonary fibrosis) ([facility]) [J84.*INVALID FOR* CKD (chronic kidney disease) [N18.9] INVALID FOR* Hoarse voice quality [R49.0] INVALID FOR* GERD (gastroesophageal reflux disease) [K21.9] INVALID FOR* HTN (hypertension) [I10] INVALID FOR*11/07/2016 Gammopathy, 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 BPH (benign prostatic hyperplasia) [N40.0] INVALID FOR* Family history of ischemic heart disease [Z82.4*INVALID FOR* Coronary artery disease involving tyonek dougherty*INVALID FOR* More... 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] INVALID FOR* Acute midline low back pain [M54.5] INVALID FOR* Chronic hypoxemic respiratory failure (HCC) [J9*INVALID FOR* Pulmonary infiltrate [R91.8] INVALID FOR* Abnormal weight loss [R63.4] INVALID FOR* Encounter Status:Closed by LEONOR CALHOUN on 04/04/18 PROGRESS Observed: 04/03/2018 Status: COMPLETED Source: [place] 10:35 AM [facility] REPOSITORY HNO ID: [id number] Author: Angel Chavarria (Ex Phys) Service: (none) Author Type: Dryer And Washer Mechanic Type: Progress Notes Filed: 04/03/2018 10:35 AM Note Text: Patient exercised in phase 3 cardiopulmonary rehabilitation today. Patients vitals WNL. HOSP Observed: 04/03/2018 Status: COMPLETED Source: [place] 12:00 AM [facility] REPOSITORY Patient Update (CDPLM) EVAN FLORES ([id number]) 1945 M Date Time Provider Department 04/03/18 ANGEL CHAVARRIA PHYS) [facility] During your visit today, we recorded the following information about you: Hardik Arcos 04/03/2018 10:35 AM Signed Patient exercised in phase 3 cardiopulmonary rehabilitation today. Patients vitals WNL. Allergies As of Date: 04/03/2018 (No Known Allergies) Date Reviewed: 01/22/2018 Reviewed by: Selena Rust - Fully Assessed Prescriptions as of 04/03/2018 Sig: PANTOPRAZOLE 40 MG TABLET,DEL* Take 1 tablet by mouth once d* LEVOTHYROXINE 25 MCG TABLET Take 1 tablet by mouth once d* CALTRATE 600 + D ORAL Take 1 tablet by mouth once d* PRAVASTATIN 20 MG TABLET Take 1 tablet by mouth daily * AMLODIPINE 5 MG TABLET Take 1 tablet by mouth once d* ASPIRIN 81 MG TABLET,DELAYED * Take 1 tablet by mouth once d* PIRFENIDONE 267 MG CAPSULE Take three (3) capsules by mo* Problem List As Of Date 04/03/2018 Noted Resolved IPF (idiopathic pulmonary fibrosis) (HCC) [J84.*INVALID FOR* CKD (chronic kidney disease) [N18.9] INVALID FOR* Hoarse voice quality [R49.0] INVALID FOR* GERD (gastroesophageal reflux disease) [K21.9] INVALID FOR* HTN (hypertension) [I10] INVALID FOR*11/07/2016 Gammopathy, 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 BPH (benign prostatic hyperplasia) [N40.0] INVALID FOR* Family history of ischemic heart disease [Z82.4*INVALID FOR* Coronary artery disease involving tyonek dougherty*INVALID FOR* More... 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] INVALID FOR* Acute midline low back pain [M54.5] INVALID FOR* Chronic hypoxemic respiratory failure (HCC) [J9*INVALID FOR* Pulmonary infiltrate [R91.8] INVALID FOR* Abnormal weight loss [R63.4] INVALID FOR* Encounter Status:Closed by ANGEL CHAVARRIA on 04/03/18 PROGRESS Observed: 04/01/2018 Status: COMPLETED Source: [place] 10:36 AM [facility] REPOSITORY O ID: [id number] Author: Angel Han (Ex Phys) Deon Service: (none) Author Type: Dryer And Washer Mechanic Type: Progress Notes Filed: 04/01/2018 10:36 AM Note Text: Patient exercised in phase 3 cardiopulmonary rehabilitation today. Patients vitals WNL. HOSP Observed: 04/01/2018 Status: COMPLETED Source: [place] 12:00 AM [facility] RE[facility] EVAN FLORES ([id number]) 1945 M Date Time Provider Department 04/01/18 ANGEL CHAVARRIA (EX PHYS) [facility] During your visit today, we recorded the following information about you: Hardik Arcos 04/01/2018 10:36 AM Signed Patient exercised in phase 3 cardiopulmonary rehabilitation today. Patients vitals WNL. Allergies As of Date: 04/01/2018 (No Known Allergies) Date Reviewed: 01/22/2018 Reviewed by: Selena Rust - Fully Assessed Prescriptions as of 04/01/2018 Sig: PANTOPRAZOLE 40 MG TABLET,DEL* Take 1 tablet by mouth once d* LEVOTHYROXINE 25 MCG TABLET Take 1 tablet by mouth once d* CALTRATE 600 + D ORAL Take 1 tablet by mouth once d* PRAVASTATIN 20 MG TABLET Take 1 tablet by mouth daily * AMLODIPINE 5 MG TABLET Take 1 tablet by mouth once d* ASPIRIN 81 MG TABLET,DELAYED * Take 1 tablet by mouth once d* PIRFENIDONE 267 MG CAPSULE Take three (3) capsules by mo* Problem List As Of Date 04/01/2018 Noted Resolved IPF (idiopathic pulmonary fibrosis) ([facility]) [J84.*INVALID FOR* CKD (chronic kidney disease) [N18.9] INVALID FOR* Hoarse voice quality [R49.0] INVALID FOR* GERD (gastroesophageal reflux disease) [K21.9] INVALID FOR* HTN (hypertension) [I10] INVALID FOR*11/07/2016 Gammopathy, 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 BPH (benign prostatic hyperplasia) [N40.0] INVALID FOR* Family history of ischemic heart disease [Z82.4*INVALID FOR* Coronary artery disease involving tyonek dougherty*INVALID FOR* More... 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] INVALID FOR* Acute midline low back pain [M54.5] INVALID FOR* Chronic hypoxemic respiratory failure (HCC) [J9*INVALID FOR* Pulmonary infiltrate [R91.8] INVALID FOR* Abnormal weight loss [R63.4] INVALID FOR* Encounter Status:Closed by ANGEL CHAVARRIA on 04/01/18 PROGRESS Observed: 03/27/2018 Status: COMPLETED Source: [place] 10:29 AM [facility] REPOSITORY HNO ID: [id number] Author: Jessica (Rn) DANIELLE Luciano Service: (none) Author Type: Registered Nurse Type: Progress Notes Filed: 03/27/2018 10:29 AM Note Text: Patient exercised in phase 3 cardiopulmonary rehabilitation today. Patients vitals WNL. HOSP Observed: 03/27/2018 Status: COMPLETED Source: [place] 12:00 AM [facility] OTHER [place] REPOSITORY Patient [facility] EVAN FLORES ([id number]) 1945 M Date Time Provider Department 03/27/18 JESSICA LUCIANO (DANIELLE) [facility] During your visit today, we recorded the following information about you: Jessica Luciano RN, RN 03/27/2018 10:29 AM Signed Patient exercised in phase 3 cardiopulmonary rehabilitation today. Patients vitals WNL. Allergies As of Date: 03/27/2018 (No Known Allergies) Date Reviewed: 01/22/2018 Reviewed by: Selena Rust - Fully Assessed Prescriptions as of 03/27/2018 Sig: PANTOPRAZOLE 40 MG TABLET,DEL* Take 1 tablet by mouth once d* LEVOTHYROXINE 25 MCG TABLET Take 1 tablet by mouth once d* CALTRATE 600 + D ORAL Take 1 tablet by mouth once d* PRAVASTATIN 20 MG TABLET Take 1 tablet by mouth daily * AMLODIPINE 5 MG TABLET Take 1 tablet by mouth once d* ASPIRIN 81 MG TABLET,DELAYED * Take 1 tablet by mouth once d* PIRFENIDONE 267 MG CAPSULE Take three (3) capsules by mo* Problem List As Of Date 03/27/2018 Noted Resolved IPF (idiopathic pulmonary fibrosis) (HCC) [J84.*INVALID FOR* CKD (chronic kidney disease) [N18.9] INVALID FOR* Hoarse voice quality [R49.0] INVALID FOR* GERD (gastroesophageal reflux disease) [K21.9] INVALID FOR* HTN (hypertension) [I10] INVALID FOR*11/07/2016 Gammopathy, 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 BPH (benign prostatic hyperplasia) [N40.0] INVALID FOR* Family history of ischemic heart disease [Z82.4*INVALID FOR* Coronary artery disease involving tyonek dougherty*INVALID FOR* More... 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] INVALID FOR* Acute midline low back pain [M54.5] INVALID FOR* Chronic hypoxemic respiratory failure (HCC) [J9*INVALID FOR* Pulmonary infiltrate [R91.8] INVALID FOR* Abnormal weight loss [R63.4] INVALID FOR* Encounter Status:Closed by JESSICA LUCIANO on 03/27/18 PROGRESS Observed: 03/25/2018 Status: COMPLETED Source: [place] 10:36 AM [facility] REPOSITORY HNO ID: [id number] Author: Angel Han (Ex Phys) Deon Service: (none) Author Type: Dryer And Washer Mechanic Type: Progress Notes Filed: 03/25/2018 10:36 AM Note Text: Patient exercised in phase 3 cardiopulmonary rehabilitation today. Patients vitals WNL. HOSP Observed: 03/25/2018 Status: COMPLETED Source: [place] 12:00 AM [facility] REPOSITORY Patient Update ([facility]) SANDRAEVAN ([id number]) 1945 M Date Time Provider Department 03/25/18 ANGEL CHAVARRIA (EX PHYS) [facility] During your visit today, we recorded the following information about you: Angel Chavarria Ex Phy 03/25/2018 10:36 AM Signed Patient exercised in phase 3 cardiopulmonary rehabilitation today. Patients vitals WNL. Allergies As of Date: 03/25/2018 (No Known Allergies) Date Reviewed: 01/22/2018 Reviewed by: Selena Rust - Fully Assessed Prescriptions as of 03/25/2018 Sig: PANTOPRAZOLE 40 MG TABLET,DEL* Take 1 tablet by mouth once d* LEVOTHYROXINE 25 MCG TABLET Take 1 tablet by mouth once d* CALTRATE 600 + D ORAL Take 1 tablet by mouth once d* PRAVASTATIN 20 MG TABLET Take 1 tablet by mouth daily * AMLODIPINE 5 MG TABLET Take 1 tablet by mouth once d* ASPIRIN 81 MG TABLET,DELAYED * Take 1 tablet by mouth once d* PIRFENIDONE 267 MG CAPSULE Take three (3) capsules by mo* Problem List As Of Date 03/25/2018 Noted Resolved IPF (idiopathic pulmonary fibrosis) (HCC) [J84.*INVALID FOR* CKD (chronic kidney disease) [N18.9] INVALID FOR* Hoarse voice quality [R49.0] INVALID FOR* GERD (gastroesophageal reflux disease) [K21.9] INVALID FOR* HTN (hypertension) [I10] INVALID FOR*11/07/2016 Gammopathy, 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 BPH (benign prostatic hyperplasia) [N40.0] INVALID FOR* Family history of ischemic heart disease [Z82.4*INVALID FOR* Coronary artery disease involving tyonek dougherty*INVALID FOR* More... 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] INVALID FOR* Acute midline low back pain [M54.5] INVALID FOR* Chronic hypoxemic respiratory failure (HCC) [J9*INVALID FOR* Pulmonary infiltrate [R91.8] INVALID FOR* Abnormal weight loss [R63.4] INVALID FOR* Encounter Status:Closed by ANGEL CHAVARRIA on 03/25/18 PROGRESS Observed: 03/21/2018 Status: COMPLETED Source: [place] 12:12 PM [facility] REPOSITORY HNO ID: [id number] Author: Angel Han (Ex Phys) Deon Service: (none) Author Type: Dryer And Washer Mechanic Type: Progress Notes Filed: 03/21/2018 12:12 PM Note Text: Patient exercised in phase 3 cardiopulmonary rehabilitation today. Patients vitals WNL. HOSP Observed: 03/21/2018 Status: COMPLETED Source: [place] 12:00 AM [facility] REPOSITORY Patient Update ([facility]) EVAN FLORES ([id number]) 1945 M Date Time Provider Department 03/21/18 ANGEL CHAVARRIA (EX PHYS) [facility] During your visit today, we recorded the following information about you: Hardik Arcos [facility] 03/21/2018 12:12 PM Signed Patient exercised in phase 3 cardiopulmonary rehabilitation today. Patients vitals WNL. Allergies As of Date: 03/21/2018 (No Known Allergies) Date Reviewed: 01/22/2018 Reviewed by: Selena Rust - Fully Assessed Prescriptions as of 03/21/2018 Sig: PANTOPRAZOLE 40 MG TABLET,DEL* Take 1 tablet by mouth once d* LEVOTHYROXINE 25 MCG TABLET Take 1 tablet by mouth once d* CALTRATE 600 + D ORAL Take 1 tablet by mouth once d* PRAVASTATIN 20 MG TABLET Take 1 tablet by mouth daily * AMLODIPINE 5 MG TABLET Take 1 tablet by mouth once d* ASPIRIN 81 MG TABLET,DELAYED * Take 1 tablet by mouth once d* PIRFENIDONE 267 MG CAPSULE Take three (3) capsules by mo* Problem List As Of Date 03/21/2018 Noted Resolved IPF (idiopathic pulmonary fibrosis) (HCC) [J84.*INVALID FOR* CKD (chronic kidney disease) [N18.9] INVALID FOR* Hoarse voice quality [R49.0] INVALID FOR* GERD (gastroesophageal reflux disease) [K21.9] INVALID FOR* HTN (hypertension) [I10] INVALID FOR*11/07/2016 Gammopathy, 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 BPH (benign prostatic hyperplasia) [N40.0] INVALID FOR* Family history of ischemic heart disease [Z82.4*INVALID FOR* Coronary artery disease involving tyonek dougherty*INVALID FOR* More... 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] INVALID FOR* Acute midline low back pain [M54.5] INVALID FOR* Chronic hypoxemic respiratory failure (HCC) [J9*INVALID FOR* Pulmonary infiltrate [R91.8] INVALID FOR* Abnormal weight loss [R63.4] INVALID FOR* Encounter Status:Closed by ANGEL CHAVARRIA on 03/21/18 PROGRESS Observed: 03/19/2018 Status: COMPLETED Source: [place] 12:20 PM [facility] REPOSITORY HNO ID: [id number] Author: Jessica (Rn) DANIELLE Luciano Service: (none) Author Type: Registered Nurse Type: Progress Notes Filed: 03/19/2018 12:20 PM Note Text: Patient exercised in phase 3 cardiopulmonary rehabilitation today. Patients vitals WNL. HOSP Observed: 03/19/2018 Status: COMPLETED Source: [place] 12:00 AM [facility] REPOSITORY Patient Update ([facility] EVAN FLORES ([id number]) 1945 M Date Time Provider Department 03/19/18 JESSICA LUCIANO (RN) [facility] During your visit today, we recorded the following information about you: Jessica Luciano RN, RN 03/19/2018 12:20 PM Signed Patient exercised in phase 3 cardiopulmonary rehabilitation today. Patients vitals WNL. Allergies As of Date: 03/19/2018 (No Known Allergies) Date Reviewed: 01/22/2018 Reviewed by: Selena Rust - Fully Assessed Prescriptions as of 03/19/2018 Sig: PANTOPRAZOLE 40 MG TABLET,DEL* Take 1 tablet by mouth once d* LEVOTHYROXINE 25 MCG TABLET Take 1 tablet by mouth once d* CALTRATE 600 + D ORAL Take 1 tablet by mouth once d* PRAVASTATIN 20 MG TABLET Take 1 tablet by mouth daily * AMLODIPINE 5 MG TABLET Take 1 tablet by mouth once d* ASPIRIN 81 MG TABLET,DELAYED * Take 1 tablet by mouth once d* PIRFENIDONE 267 MG CAPSULE Take three (3) capsules by mo* Problem List As Of Date 03/19/2018 Noted Resolved IPF (idiopathic pulmonary fibrosis) (HCC) [J84.*INVALID FOR* CKD (chronic kidney disease) [N18.9] INVALID FOR* Hoarse voice quality [R49.0] INVALID FOR* GERD (gastroesophageal reflux disease) [K21.9] INVALID FOR* HTN (hypertension) [I10] INVALID FOR*11/07/2016 Gammopathy, 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 BPH (benign prostatic hyperplasia) [N40.0] INVALID FOR* Family history of ischemic heart disease [Z82.4*INVALID FOR* Coronary artery disease involving tyonek dougherty*INVALID FOR* More... 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] INVALID FOR* Acute midline low back pain [M54.5] INVALID FOR* Chronic hypoxemic respiratory failure (HCC) [J9*INVALID FOR* Pulmonary infiltrate [R91.8] INVALID FOR* Abnormal weight loss [R63.4] INVALID FOR* Encounter Status:Closed by JESSICA LUCIANO on 03/19/18 PROGRESS Observed: 03/17/2018 Status: COMPLETED Source: [place] 12:20 PM [facility] REPOSITORY HNO ID: [id number] Author: Jessica (Rn) DANIELLE Luciano Service: (none) Author Type: Registered Nurse Type: Progress Notes Filed: 03/17/2018 12:20 PM Note Text: Patient exercised in phase 3 cardiopulmonary rehabilitation today. Patients vitals WNL. HOSP Observed: 03/17/2018 Status: COMPLETED Source: [place] 12:00 AM [facility] REPOSITORY Patient Update ([facility]) EVAN FLORES ([id number]) 1945 M Date Time Provider Department 03/17/18 JESSICA LUCIANO (RN) [facility] During your visit today, we recorded the following information about you: Jessica Luciano RN, RN 03/17/2018 12:20 PM Signed Patient exercised in phase 3 cardiopulmonary rehabilitation today. Patients vitals WNL. Allergies As of Date: 03/17/2018 (No Known Allergies) Date Reviewed: 01/22/2018 Reviewed by: Selena Rust - Fully Assessed Prescriptions as of 03/17/2018 Sig: PANTOPRAZOLE 40 MG TABLET,DEL* Take 1 tablet by mouth once d* LEVOTHYROXINE 25 MCG TABLET Take 1 tablet by mouth once d* CALTRATE 600 + D ORAL Take 1 tablet by mouth once d* PRAVASTATIN 20 MG TABLET Take 1 tablet by mouth daily * AMLODIPINE 5 MG TABLET Take 1 tablet by mouth once d* ASPIRIN 81 MG TABLET,DELAYED * Take 1 tablet by mouth once d* PIRFENIDONE 267 MG CAPSULE Take three (3) capsules by mo* Problem List As Of Date 03/17/2018 Noted Resolved IPF (idiopathic pulmonary fibrosis) ([facility]) [J84.*INVALID FOR* CKD (chronic kidney disease) [N18.9] INVALID FOR* Hoarse voice quality [R49.0] INVALID FOR* GERD (gastroesophageal reflux disease) [K21.9] INVALID FOR* HTN (hypertension) [I10] INVALID FOR*11/07/2016 Gammopathy, 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 BPH (benign prostatic hyperplasia) [N40.0] INVALID FOR* Family history of ischemic heart disease [Z82.4*INVALID FOR* Coronary artery disease involving tyonek dougherty*INVALID FOR* More... 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] INVALID FOR* Acute midline low back pain [M54.5] INVALID FOR* Chronic hypoxemic respiratory failure (HCC) [J9*INVALID FOR* Pulmonary infiltrate [R91.8] INVALID FOR* Abnormal weight loss [R63.4] INVALID FOR* Encounter Status:Closed by JESSICA LUCIANO on 03/17/18 PROGRESS Observed: 03/13/2018 Status: COMPLETED Source: [place] 10:31 AM [facility] REPOSITORY HNO ID: [id number] Author: Angel Chavarria (Ex Phys) Service: (none) Author Type: Dryer And Washer Mechanic Type: Progress Notes Filed: 03/13/2018 10:31 AM Note Text: Patient exercised in phase 3 cardiopulmonary rehabilitation today. Patients vitals WNL. HOSP Observed: 03/13/2018 Status: COMPLETED Source: [place] 12:00 AM [facility] REPOSITORY Patient Update ([facility]) EVAN FLORES ([id number]) 1945 M Date Time Provider Department 03/13/18 ANGEL CHAVARRIAEX PHYS) [facility] During your visit today, we recorded the following information about you: Angel Chavarria Ex Phy 03/13/2018 10:31 AM Signed Patient exercised in phase 3 cardiopulmonary rehabilitation today. Patients vitals WNL. Allergies As of Date: 03/13/2018 (No Known Allergies) Date Reviewed: 01/22/2018 Reviewed by: Selena Rust - Fully Assessed Prescriptions as of 03/13/2018 Sig: PANTOPRAZOLE 40 MG TABLET,DEL* Take 1 tablet by mouth once d* LEVOTHYROXINE 25 MCG TABLET Take 1 tablet by mouth once d* CALTRATE 600 + D ORAL Take 1 tablet by mouth once d* PRAVASTATIN 20 MG TABLET Take 1 tablet by mouth daily * AMLODIPINE 5 MG TABLET Take 1 tablet by mouth once d* ASPIRIN 81 MG TABLET,DELAYED * Take 1 tablet by mouth once d* PIRFENIDONE 267 MG CAPSULE Take three (3) capsules by mo* Problem List As Of Date 03/13/2018 Noted Resolved IPF (idiopathic pulmonary fibrosis) (HCC) [J84.*INVALID FOR* CKD (chronic kidney disease) [N18.9] INVALID FOR* Hoarse voice quality [R49.0] INVALID FOR* GERD (gastroesophageal reflux disease) [K21.9] INVALID FOR* HTN (hypertension) [I10] INVALID FOR*11/07/2016 Gammopathy, 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 BPH (benign prostatic hyperplasia) [N40.0] INVALID FOR* Family history of ischemic heart disease [Z82.4*INVALID FOR* Coronary artery disease involving tyonek dougherty*INVALID FOR* More... 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] INVALID FOR* Acute midline low back pain [M54.5] INVALID FOR* Chronic hypoxemic respiratory failure (HCC) [J9*INVALID FOR* Pulmonary infiltrate [R91.8] INVALID FOR* Abnormal weight loss [R63.4] INVALID FOR* Encounter Status:Closed by ANGEL CHAVARRIA on 03/13/18 PROGRESS Observed: 03/11/2018 Status: COMPLETED Source: [place] 10:25 AM [facility] RE[facility] HNO ID: [id number] Author: Angel HoEx PhysSharda Chavarria Service: (none) Author Type: Dryer And Washer Mechanic Type: Progress Notes Filed: 03/11/2018 10:25 AM Note Text: Patient exercised in phase 3 cardiopulmonary rehabilitation today. Patients vitals WNL. HOSP Observed: 03/11/2018 Status: COMPLETED Source: [place] 12:00 AM [facility] REPOSITORY Patient Update ([facility]) EVAN FLORES ([id number]) 1945 M Date Time Provider Department 03/11/18 ANGEL CHAVARRIA (HARDIK PHYS) [facility] During your visit today, we recorded the following information about you: Hardik Arcos [facility] 03/11/2018 10:25 AM Signed Patient exercised in phase 3 cardiopulmonary rehabilitation today. Patients vitals WNL. Allergies As of Date: 03/11/2018 (No Known Allergies) Date Reviewed: 01/22/2018 Reviewed by: Selena Rust - Fully Assessed Prescriptions as of 03/11/2018 Sig: LEVOTHYROXINE 25 MCG TABLET Take 1 tablet by mouth once d* CALTRATE 600 + D ORAL Take 1 tablet by mouth once d* PRAVASTATIN 20 MG TABLET Take 1 tablet by mouth daily * AMLODIPINE 5 MG TABLET Take 1 tablet by mouth once d* PANTOPRAZOLE 40 MG TABLET,DEL* Take 1 tablet by mouth once d* ASPIRIN 81 MG TABLET,DELAYED * Take 1 tablet by mouth once d* PIRFENIDONE 267 MG CAPSULE Take three (3) capsules by mo* Problem List As Of Date 03/11/2018 Noted Resolved IPF (idiopathic pulmonary fibrosis) (HCC) [J84.*INVALID FOR* CKD (chronic kidney disease) [N18.9] INVALID FOR* Hoarse voice quality [R49.0] INVALID FOR* GERD (gastroesophageal reflux disease) [K21.9] INVALID FOR* HTN (hypertension) [I10] INVALID FOR*11/07/2016 Gammopathy, 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 BPH (benign prostatic hyperplasia) [N40.0] INVALID FOR* Family history of ischemic heart disease [Z82.4*INVALID FOR* Coronary artery disease involving tyonek dougherty*INVALID FOR* More... 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] INVALID FOR* Acute midline low back pain [M54.5] INVALID FOR* Chronic hypoxemic respiratory failure (HCC) [J9*INVALID FOR* Pulmonary infiltrate [R91.8] INVALID FOR* Abnormal weight loss [R63.4] INVALID FOR* Encounter Status:Closed by ANGEL CHAVARRIA on 03/11/18 PROGRESS Observed: 03/06/2018 Status: COMPLETED Source: [place] 10:36 AM [facility] REPOSITORY HNO ID: [id number] Author: Angel Luciano) Deon Service: (none) Author Type: Dryer And Washer Mechanic Type: Progress Notes Filed: 03/06/2018 10:36 AM Note Text: Patient exercised in phase 3 cardiopulmonary rehabilitation today. Patients vitals WNL. HOSP Observed: 03/06/2018 Status: COMPLETED Source: [place] 12:00 AM [facility] REPOSITORY Patient Update ([facility]) EVAN FLORES ([id number]) 1945 M Date Time Provider Department 03/06/18 ANGEL CHAVARRIA PHYS) [facility] During your visit today, we recorded the following information about you: Hardik Arcos 03/06/2018 10:36 AM Signed Patient exercised in phase 3 cardiopulmonary rehabilitation today. Patients vitals WNL. Allergies As of Date: 03/06/2018 (No Known Allergies) Date Reviewed: 01/22/2018 Reviewed by: Selena Rust - Fully Assessed Prescriptions as of 03/06/2018 Sig: LEVOTHYROXINE 25 MCG TABLET Take 1 tablet by mouth once d* CALTRATE 600 + D ORAL Take 1 tablet by mouth once d* PRAVASTATIN 20 MG TABLET Take 1 tablet by mouth daily * AMLODIPINE 5 MG TABLET Take 1 tablet by mouth once d* PANTOPRAZOLE 40 MG TABLET,DEL* Take 1 tablet by mouth once d* ASPIRIN 81 MG TABLET,DELAYED * Take 1 tablet by mouth once d* PIRFENIDONE 267 MG CAPSULE Take three (3) capsules by mo* Problem List As Of Date 03/06/2018 Noted Resolved IPF (idiopathic pulmonary fibrosis) (HCC) [J84.*INVALID FOR* CKD (chronic kidney disease) [N18.9] INVALID FOR* Hoarse voice quality [R49.0] INVALID FOR* GERD (gastroesophageal reflux disease) [K21.9] INVALID FOR* HTN (hypertension) [I10] INVALID FOR*11/07/2016 Gammopathy, 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 BPH (benign prostatic hyperplasia) [N40.0] INVALID FOR* Family history of ischemic heart disease [Z82.4*INVALID FOR* Coronary artery disease involving tyonek dougherty*INVALID FOR* More... 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] INVALID FOR* Acute midline low back pain [M54.5] INVALID FOR* Chronic hypoxemic respiratory failure (HCC) [J9*INVALID FOR* Pulmonary infiltrate [R91.8] INVALID FOR* Abnormal weight loss [R63.4] INVALID FOR* Encounter Status:Closed by ANGEL CHAVARRIA on 03/06/18 PROGRESS Observed: 03/04/2018 Status: COMPLETED Source: [place] 10:40 AM [facility] HNO ID: [id number] Author: Angel Han (Ex Phys) Deon Service: (none) Author Type: Dryer And Washer Mechanic Type: Progress Notes Filed: 03/04/2018 10:40 AM Note Text: Patient exercised in phase 3 cardiopulmonary rehabilitation today. Patients vitals WNL. HOSP Observed: 03/04/2018 Status: COMPLETED Source: [place] 12:00 AM [facility] REPOSITORY Patient Update ([facility]) SANDRAEVAN Wright ([id number]) 1945 M Date Time Provider Department 03/04/18 ANGEL CHAVARRIA (EX PHYS) [facility] During your visit today, we recorded the following information about you: Hardik Arcos 03/04/2018 10:40 AM Signed Patient exercised in phase 3 cardiopulmonary rehabilitation today. Patients vitals WNL. Allergies As of Date: 03/04/2018 (No Known Allergies) Date Reviewed: 01/22/2018 Reviewed by: Selena Rust - Fully Assessed Prescriptions as of 03/04/2018 Sig: LEVOTHYROXINE 25 MCG TABLET Take 1 tablet by mouth once d* CALTRATE 600 + D ORAL Take 1 tablet by mouth once d* PRAVASTATIN 20 MG TABLET Take 1 tablet by mouth daily * AMLODIPINE 5 MG TABLET Take 1 tablet by mouth once d* PANTOPRAZOLE 40 MG TABLET,DEL* Take 1 tablet by mouth once d* ASPIRIN 81 MG TABLET,DELAYED * Take 1 tablet by mouth once d* PIRFENIDONE 267 MG CAPSULE Take three (3) capsules by mo* Problem List As Of Date 03/04/2018 Noted Resolved IPF (idiopathic pulmonary fibrosis) (HCC) [J84.*INVALID FOR* CKD (chronic kidney disease) [N18.9] INVALID FOR* Hoarse voice quality [R49.0] INVALID FOR* GERD (gastroesophageal reflux disease) [K21.9] INVALID FOR* HTN (hypertension) [I10] INVALID FOR*11/07/2016 Gammopathy, 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 BPH (benign prostatic hyperplasia) [N40.0] INVALID FOR* Family history of ischemic heart disease [Z82.4*INVALID FOR* Coronary artery disease involving tyonek dougherty*INVALID FOR* More... 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] INVALID FOR* Acute midline low back pain [M54.5] INVALID FOR* Chronic hypoxemic respiratory failure (HCC) [J9*INVALID FOR* Pulmonary infiltrate [R91.8] INVALID FOR* Abnormal weight loss [R63.4] INVALID FOR* Encounter Status:Closed by ANGEL CHAVARRIA on 03/04/18 PROGRESS Observed: 02/27/2018 Status: COMPLETED Source: [place] 10:36 AM [facility] REPOSITORY HNO ID: [id number] Author: Angel Chavarria (Ex Phys) Service: (none) Author Type: Dryer And Washer Mechanic Type: Progress Notes Filed: 02/27/2018 10:36 AM Note Text: Patient exercised in phase 3 cardiopulmonary rehabilitation today. Patients vitals WNL. HOSP Observed: 02/27/2018 Status: COMPLETED Source: [place] 12:00 AM [facility] REPOSITORY Patient Update ([facility]) EVAN FLORES ([id number]) 1945 M Date Time Provider Department 02/27/18 ANGEL CHAVARRIA PHYS) [facility] During your visit today, we recorded the following information about you: Hardik Arcos 02/27/2018 10:36 AM Signed Patient exercised in phase 3 cardiopulmonary rehabilitation today. Patients vitals WNL. Allergies As of Date: 02/27/2018 (No Known Allergies) Date Reviewed: 01/22/2018 Reviewed by: Selena Rust - Fully Assessed Prescriptions as of 02/27/2018 Sig: LEVOTHYROXINE 25 MCG TABLET Take 1 tablet by mouth once d* CALTRATE 600 + D ORAL Take 1 tablet by mouth once d* PRAVASTATIN 20 MG TABLET Take 1 tablet by mouth daily * AMLODIPINE 5 MG TABLET Take 1 tablet by mouth once d* PANTOPRAZOLE 40 MG TABLET,DEL* Take 1 tablet by mouth once d* ASPIRIN 81 MG TABLET,DELAYED * Take 1 tablet by mouth once d* PIRFENIDONE 267 MG CAPSULE Take three (3) capsules by mo* Problem List As Of Date 02/27/2018 Noted Resolved IPF (idiopathic pulmonary fibrosis) (HCC) [J84.*INVALID FOR* CKD (chronic kidney disease) [N18.9] INVALID FOR* Hoarse voice quality [R49.0] INVALID FOR* GERD (gastroesophageal reflux disease) [K21.9] INVALID FOR* HTN (hypertension) [I10] INVALID FOR*11/07/2016 Gammopathy, 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 BPH (benign prostatic hyperplasia) [N40.0] INVALID FOR* Family history of ischemic heart disease [Z82.4*INVALID FOR* Coronary artery disease involving tyonek dougherty*INVALID FOR* More... 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] INVALID FOR* Acute midline low back pain [M54.5] INVALID FOR* Chronic hypoxemic respiratory failure (HCC) [J9*INVALID FOR* Pulmonary infiltrate [R91.8] INVALID FOR* Abnormal weight loss [R63.4] INVALID FOR* Encounter Status:Closed by ANGEL CHAVARRIA on 02/27/18 PROGRESS Observed: 02/25/2018 Status: COMPLETED Source: [place] 10:34 AM [facility] OTHER CAMPUS REPOSITORY HNO ID: [id number] Author: Angel Han (Ex Phys) Deon Service: (none) Author Type: Dryer And Washer Mechanic Type: Progress Notes Filed: 02/25/2018 10:34 AM Note Text: Patient exercised in phase 3 cardiopulmonary rehabilitation today. Patients vitals WNL. HOSP Observed: 02/25/2018 Status: COMPLETED Source: [place] 12:00 AM [facility] OTHER CAMPUS REPOSITORY Patient Update ([facility]) SANDRAEVAN ([id number]) 1945 M Date Time Provider Department 02/25/18 ANGEL CHAVARRIA (EX PHYS) [facility] During your visit today, we recorded the following information about you: Hardik Arcos Phy 02/25/2018 10:34 AM Signed Patient exercised in phase 3 cardiopulmonary rehabilitation today. Patients vitals WNL. Allergies As of Date: 02/25/2018 (No Known Allergies) Date Reviewed: 01/22/2018 Reviewed by: Selena Rust - Fully Assessed Prescriptions as of 02/25/2018 Sig: LEVOTHYROXINE 25 MCG TABLET Take 1 tablet by mouth once d* CALTRATE 600 + D ORAL Take 1 tablet by mouth once d* PRAVASTATIN 20 MG TABLET Take 1 tablet by mouth daily * AMLODIPINE 5 MG TABLET Take 1 tablet by mouth once d* PANTOPRAZOLE 40 MG TABLET,DEL* Take 1 tablet by mouth once d* ASPIRIN 81 MG TABLET,DELAYED * Take 1 tablet by mouth once d* PIRFENIDONE 267 MG CAPSULE Take three (3) capsules by mo* Problem List As Of Date 02/25/2018 Noted Resolved IPF (idiopathic pulmonary fibrosis) ([facility]) [J84.*INVALID FOR* CKD (chronic kidney disease) [N18.9] INVALID FOR* Hoarse voice quality [R49.0] INVALID FOR* GERD (gastroesophageal reflux disease) [K21.9] INVALID FOR* HTN (hypertension) [I10] INVALID FOR*11/07/2016 Gammopathy, 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 BPH (benign prostatic hyperplasia) [N40.0] INVALID FOR* Family history of ischemic heart disease [Z82.4*INVALID FOR* Coronary artery disease involving tyonek dougherty*INVALID FOR* More... 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] INVALID FOR* Acute midline low back pain [M54.5] INVALID FOR* Chronic hypoxemic respiratory failure (HCC) [J9*INVALID FOR* Pulmonary infiltrate [R91.8] INVALID FOR* Abnormal weight loss [R63.4] INVALID FOR* Encounter Status:Closed by ANGEL CHAVARRIA on 02/25/18 PROGRESS Observed: 02/21/2018 Status: COMPLETED Source: [place] 12:08 PM [facility] REPOSITORY HNO ID: [id number] Author: Thong HoEx Bobby Marmolejo Service: (none) Author Type: Dryer And Washer Mechanic Type: Progress Notes Filed: 02/21/2018 12:08 PM Note Text: Patient exercised in phase 3 cardiopulmonary rehabilitation today. Patients vitals WNL. HOSP Observed: 02/21/2018 Status: COMPLETED Source: [place] 12:00 AM [facility] OTHER [place] REPOSITORY Patient Update ([facility]) EVAN FLORES ([id number]) 1945 M Date Time Provider Department 02/21/18 THONG MARMOLEJO) [facility] During your visit today, we recorded the following information about you: Hardik Jo 02/21/2018 12:08 PM Signed Patient exercised in phase 3 cardiopulmonary rehabilitation today. Patients vitals WNL. Allergies As of Date: 02/21/2018 (No Known Allergies) Date Reviewed: 01/22/2018 Reviewed by: Selena Rust - Fully Assessed Prescriptions as of 02/21/2018 Sig: LEVOTHYROXINE 25 MCG TABLET Take 1 tablet by mouth once d* CALTRATE 600 + D ORAL Take 1 tablet by mouth once d* PRAVASTATIN 20 MG TABLET Take 1 tablet by mouth daily * AMLODIPINE 5 MG TABLET Take 1 tablet by mouth once d* PANTOPRAZOLE 40 MG TABLET,DEL* Take 1 tablet by mouth once d* ASPIRIN 81 MG TABLET,DELAYED * Take 1 tablet by mouth once d* PIRFENIDONE 267 MG CAPSULE Take three (3) capsules by mo* Problem List As Of Date 02/21/2018 Noted Resolved IPF (idiopathic pulmonary fibrosis) (HCC) [J84.*INVALID FOR* CKD (chronic kidney disease) [N18.9] INVALID FOR* Hoarse voice quality [R49.0] INVALID FOR* GERD (gastroesophageal reflux disease) [K21.9] INVALID FOR* HTN (hypertension) [I10] INVALID FOR*11/07/2016 Gammopathy, 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 BPH (benign prostatic hyperplasia) [N40.0] INVALID FOR* Family history of ischemic heart disease [Z82.4*INVALID FOR* Coronary artery disease involving tyonek dougherty*INVALID FOR* More... 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] INVALID FOR* Acute midline low back pain [M54.5] INVALID FOR* Chronic hypoxemic respiratory failure (HCC) [J9*INVALID FOR* Pulmonary infiltrate [R91.8] INVALID FOR* Abnormal weight loss [R63.4] INVALID FOR* Encounter Status:Closed by THONG MARMOLEJO on 02/21/18 PROGRESS Observed: 02/19/2018 Status: COMPLETED Source: [place] 12:31 PM [facility] REPOSITORY HNO ID: [id number] Author: Angel Han (Ex Phys) Deon Service: (none) Author Type: Dryer And Washer Mechanic Type: Progress Notes Filed: 02/19/2018 12:31 PM Note Text: Patient exercised in phase 3 cardiopulmonary rehabilitation today. Patients vitals WNL. HOSP Observed: 02/19/2018 Status: COMPLETED Source: [place] 12:00 AM [facility] REPOSITORY Patient Update ([facility]) EVAN FLORES ([id number]) 1945 M Date Time Provider Department 02/19/18 ANGEL CHAVARRIA (EX PHYS) [facility] During your visit today, we recorded the following information about you: Hardik Arcos Phy 02/19/2018 12:31 PM Signed Patient exercised in phase 3 cardiopulmonary rehabilitation today. Patients vitals WNL. Allergies As of Date: 02/19/2018 (No Known Allergies) Date Reviewed: 01/22/2018 Reviewed by: Selena Rust - Fully Assessed Prescriptions as of 02/19/2018 Sig: LEVOTHYROXINE 25 MCG TABLET Take 1 tablet by mouth once d* CALTRATE 600 + D ORAL Take 1 tablet by mouth once d* PRAVASTATIN 20 MG TABLET Take 1 tablet by mouth daily * AMLODIPINE 5 MG TABLET Take 1 tablet by mouth once d* PANTOPRAZOLE 40 MG TABLET,DEL* Take 1 tablet by mouth once d* ASPIRIN 81 MG TABLET,DELAYED * Take 1 tablet by mouth once d* PIRFENIDONE 267 MG CAPSULE Take three (3) capsules by mo* Problem List As Of Date 02/19/2018 Noted Resolved IPF (idiopathic pulmonary fibrosis) (HCC) [J84.*INVALID FOR* CKD (chronic kidney disease) [N18.9] INVALID FOR* Hoarse voice quality [R49.0] INVALID FOR* GERD (gastroesophageal reflux disease) [K21.9] INVALID FOR* HTN (hypertension) [I10] INVALID FOR*11/07/2016 Gammopathy, 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 BPH (benign prostatic hyperplasia) [N40.0] INVALID FOR* Family history of ischemic heart disease [Z82.4*INVALID FOR* Coronary artery disease involving tyonek dougherty*INVALID FOR* More... 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] INVALID FOR* Acute midline low back pain [M54.5] INVALID FOR* Chronic hypoxemic respiratory failure (HCC) [J9*INVALID FOR* Pulmonary infiltrate [R91.8] INVALID FOR* Abnormal weight loss [R63.4] INVALID FOR* Encounter Status:Closed by ANGEL CHAVARRIA on 02/19/18 TSH Collected: 02/13/2018 Status: F Source: [place] 4:20 PM [facility] [place] REPOSITORY TYPE CODE TESTS RESULT OUT OF RANGE REFERENCE UNITS LAB TSH 0.400-5.500 uU/mL TSH 4.820 Performed By: #### TSH #### [facility] [address] [address] PROGRESS Observed: 02/13/2018 Status: COMPLETED Source: [place] 10:36 AM [facility] REPOSITORY HNO ID: [id number] Author: Angel Chavarria (Ex Phys) Service: (none) Author Type: Dryer And Washer Mechanic Type: Progress Notes Filed: 02/13/2018 10:36 AM Note Text: Patient exercised in phase 3 cardiopulmonary rehabilitation today. Patients vitals WNL. HOSP Observed: 02/13/2018 Status: COMPLETED Source: [place] 12:00 AM [facility] REPOSITORY Patient Update ([facility]) EVAN FLORES ([id number]) 1945 M Date Time Provider Department 02/13/18 ANGEL CAHVARRIA) [facility] During your visit today, we recorded the following information about you: Hardik Arcos 02/13/2018 10:36 AM Signed Patient exercised in phase 3 cardiopulmonary rehabilitation today. Patients vitals WNL. Allergies As of Date: 02/13/2018 (No Known Allergies) Date Reviewed: 01/22/2018 Reviewed by: Selena Rust - Fully Assessed Prescriptions as of 02/13/2018 Sig: LEVOTHYROXINE 25 MCG TABLET Take 1 tablet by mouth once d* CALTRATE 600 + D ORAL Take 1 tablet by mouth once d* PRAVASTATIN 20 MG TABLET Take 1 tablet by mouth daily * AMLODIPINE 5 MG TABLET Take 1 tablet by mouth once d* PANTOPRAZOLE 40 MG TABLET,DEL* Take 1 tablet by mouth once d* ASPIRIN 81 MG TABLET,DELAYED * Take 1 tablet by mouth once d* PIRFENIDONE 267 MG CAPSULE Take three (3) capsules by mo* Problem List As Of Date 02/13/2018 Noted Resolved IPF (idiopathic pulmonary fibrosis) (HCC) [J84.*INVALID FOR* CKD (chronic kidney disease) [N18.9] INVALID FOR* Hoarse voice quality [R49.0] INVALID FOR* GERD (gastroesophageal reflux disease) [K21.9] INVALID FOR* HTN (hypertension) [I10] INVALID FOR*11/07/2016 Gammopathy, 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 BPH (benign prostatic hyperplasia) [N40.0] INVALID FOR* Family history of ischemic heart disease [Z82.4*INVALID FOR* Coronary artery disease involving tyonek dougherty*INVALID FOR* More... 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] INVALID FOR* Acute midline low back pain [M54.5] INVALID FOR* Chronic hypoxemic respiratory failure (HCC) [J9*INVALID FOR* Pulmonary infiltrate [R91.8] INVALID FOR* Abnormal weight loss [R63.4] INVALID FOR* Encounter Status:Closed by ANGEL CHAVARRIA on 02/13/18 PROGRESS Observed: 02/06/2018 Status: COMPLETED Source: [place] 10:33 AM [facility] OTHER [place] REPOSITORY HNO ID: [id number] Author: Angel Chavarria (Ex Phys) Service: (none) Author Type: Dryer And Washer Mechanic Type: Progress Notes Filed: 02/06/2018 10:33 AM Note Text: Patient exercised in phase 3 cardiopulmonary rehabilitation today. Patients vitals WNL. HOSP Observed: 02/06/2018 Status: COMPLETED Source: [place] 12:00 AM CLINIC OTHER CAMPUS REPOSITORY Patient Update ([facility]) SANDRAEVAN ([id number]) 1945 M Date Time Provider Department 02/06/18 ANGEL CHAVARRIA (EX PHYS) [facility] During your visit today, we recorded the following information about you: Angel Chavarria (Ex Phys) 02/06/2018 10:33 AM Signed Patient exercised in phase 3 cardiopulmonary rehabilitation today. Patients vitals WNL. Allergies As of Date: 02/06/2018 (No Known Allergies) Date Reviewed: 01/22/2018 Reviewed by: Selena Rust Ma - Fully Assessed Prescriptions as of 02/06/2018 Sig: LEVOTHYROXINE 25 MCG TABLET Take 1 tablet by mouth once d* CALTRATE 600 + D ORAL Take 1 tablet by mouth once d* PRAVASTATIN 20 MG TABLET Take 1 tablet by mouth daily * AMLODIPINE 5 MG TABLET Take 1 tablet by mouth once d* PANTOPRAZOLE 40 MG TABLET,DEL* Take 1 tablet by mouth once d* ASPIRIN 81 MG TABLET,DELAYED * Take 1 tablet by mouth once d* PIRFENIDONE 267 MG CAPSULE Take three (3) capsules by mo* Problem List As Of Date 02/06/2018 Noted Resolved IPF (idiopathic pulmonary fibrosis) (HCC) [J84.*INVALID FOR* CKD (chronic kidney disease) [N18.9] INVALID FOR* Hoarse voice quality [R49.0] INVALID FOR* GERD (gastroesophageal reflux disease) [K21.9] INVALID FOR* HTN (hypertension) [I10] INVALID FOR*11/07/2016 Gammopathy, 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 BPH (benign prostatic hyperplasia) [N40.0] INVALID FOR* Family history of ischemic heart disease [Z82.4*INVALID FOR* Coronary artery disease involving tyonek dougherty*INVALID FOR* More... 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] INVALID FOR* Acute midline low back pain [M54.5] INVALID FOR* Chronic hypoxemic respiratory failure (HCC) [J9*INVALID FOR* Pulmonary infiltrate [R91.8] INVALID FOR* Abnormal weight loss [R63.4] INVALID FOR* Encounter Status:Closed by ANGEL CHAVARRIA on 02/06/18 PROGRESS Observed: 01/30/2018 Status: COMPLETED Source: [place] 10:39 AM [facility] REPOSITORY O ID: [id number] Author: Angel Hna (Ex Phys) Deon Service: (none) Author Type: Dryer And Washer Mechanic Type: Progress Notes Filed: 01/30/2018 10:39 AM Note Text: Patient exercised in phase 3 cardiopulmonary rehabilitation today. Patients vitals WNL. HOSP Observed: 01/30/2018 Status: COMPLETED Source: [place] 12:00 AM [facility] REPOSITORY Patient Update ([facility]) EVAN FLORES ([id number]) 1945 M Date Time Provider Department 01/30/18 ANGEL CHAVARRIA PHYS) [facility] During your visit today, we recorded the following information about you: Hardik Arcos Phy 01/30/2018 10:39 AM Signed Patient exercised in phase 3 cardiopulmonary rehabilitation today. Patients vitals WNL. Allergies As of Date: 01/30/2018 (No Known Allergies) Date Reviewed: 01/22/2018 Reviewed by: Selena Rust - Fully Assessed Prescriptions as of 01/30/2018 Sig: LEVOTHYROXINE 25 MCG TABLET Take 1 tablet by mouth once d* CALTRATE 600 + D ORAL Take 1 tablet by mouth once d* PRAVASTATIN 20 MG TABLET Take 1 tablet by mouth daily * AMLODIPINE 5 MG TABLET Take 1 tablet by mouth once d* PANTOPRAZOLE 40 MG TABLET,DEL* Take 1 tablet by mouth once d* ASPIRIN 81 MG TABLET,DELAYED * Take 1 tablet by mouth once d* PIRFENIDONE 267 MG CAPSULE Take three (3) capsules by mo* Problem List As Of Date 01/30/2018 Noted Resolved IPF (idiopathic pulmonary fibrosis) (HCC) [J84.*INVALID FOR* CKD (chronic kidney disease) [N18.9] INVALID FOR* Hoarse voice quality [R49.0] INVALID FOR* GERD (gastroesophageal reflux disease) [K21.9] INVALID FOR* HTN (hypertension) [I10] INVALID FOR*11/07/2016 Gammopathy, 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 BPH (benign prostatic hyperplasia) [N40.0] INVALID FOR* Family history of ischemic heart disease [Z82.4*INVALID FOR* Coronary artery disease involving tyonek dougherty*INVALID FOR* More... 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] INVALID FOR* Acute midline low back pain [M54.5] INVALID FOR* Chronic hypoxemic respiratory failure (HCC) [J9*INVALID FOR* Pulmonary infiltrate [R91.8] INVALID FOR* Abnormal weight loss [R63.4] INVALID FOR* Encounter Status:Closed by ANGEL CHAVARRIA on 01/30/18 PROGRESS Observed: 01/28/2018 Status: COMPLETED Source: [place] 10:55 AM [facility] REPOSITORY HNO ID: [id number] Author: Angel Han (Ex Phys) Deon Service: (none) Author Type: Dryer And Washer Mechanic Type: Progress Notes Filed: 01/28/2018 10:55 AM Note Text: Patient exercised in phase 3 cardiopulmonary rehabilitation today. Patients vitals WNL. HOSP Observed: 01/28/2018 Status: COMPLETED Source: [place] 12:00 AM [facility] REPOSITORY Patient Update ([facility]) EVAN FLORES ([id number]) 1945 M Date Time Provider Department 01/28/18 ANGEL CHAVARRIA (EX PHYS) [facility] During your visit today, we recorded the following information about you: Hardik Arcos Phy 01/28/2018 10:55 AM Signed Patient exercised in phase 3 cardiopulmonary rehabilitation today. Patients vitals WNL. Allergies As of Date: 01/28/2018 (No Known Allergies) Date Reviewed: 01/22/2018 Reviewed by: Selena Rust - Fully Assessed Prescriptions as of 01/28/2018 Sig: LEVOTHYROXINE 25 MCG TABLET Take 1 tablet by mouth once d* CALTRATE 600 + D ORAL Take 1 tablet by mouth once d* PRAVASTATIN 20 MG TABLET Take 1 tablet by mouth daily * AMLODIPINE 5 MG TABLET Take 1 tablet by mouth once d* PANTOPRAZOLE 40 MG TABLET,DEL* Take 1 tablet by mouth once d* ASPIRIN 81 MG TABLET,DELAYED * Take 1 tablet by mouth once d* PIRFENIDONE 267 MG CAPSULE Take three (3) capsules by mo* Problem List As Of Date 01/28/2018 Noted Resolved IPF (idiopathic pulmonary fibrosis) (HCC) [J84.*INVALID FOR* CKD (chronic kidney disease) [N18.9] INVALID FOR* Hoarse voice quality [R49.0] INVALID FOR* GERD (gastroesophageal reflux disease) [K21.9] INVALID FOR* HTN (hypertension) [I10] INVALID FOR*11/07/2016 Gammopathy, 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 BPH (benign prostatic hyperplasia) [N40.0] INVALID FOR* Family history of ischemic heart disease [Z82.4*INVALID FOR* Coronary artery disease involving tyonek dougherty*INVALID FOR* More... 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] INVALID FOR* Acute midline low back pain [M54.5] INVALID FOR* Chronic hypoxemic respiratory failure (HCC) [J9*INVALID FOR* Pulmonary infiltrate [R91.8] INVALID FOR* Abnormal weight loss [R63.4] INVALID FOR* Encounter Status:Closed by ANGEL CHAVARRIA on 01/28/18 PROGRESS Observed: 01/24/2018 Status: COMPLETED Source: [place] 7:15 AM [facility] OTHER [place] REPOSITORY HNO ID: [id number] Author: Thong HoEx Phys) Jaleel Service: (none) Author Type: Dryer And Washer Mechanic Type: Progress Notes Filed: 01/24/2018 7:18 AM Note Text: Pulmonary Rehabilitation- Hospital Based Program Referring Physician: Dr. Kirti Arango Diagnosis: IPF Start Date: 11-26-17 Discharge Date: 01-23-18 Sessions Completed: This pleasant and motivated patient demonstrated improved exercise tolerance by achieving 3.2 METs during exercise for 40 continuous minutes. This is an increase from the start of rehabilitation, where the patient was only at a 2.7 MET level for 20 minutes. SpO2 stayed above 90% during exercise using 4-6 liter/min flow. Medications reviewed with the patient and patient stated they are correct in the Epic system. Outcome Pre-Program Post-Program Body Weight 172.1 169.1 BMI 22.8 22.3 Waist Circumference Blood Pressure 151/83 130/82 Pulse Ox 99% 99% In Rehab Peak Mets 2.7 3.2 6-Minute Walk Test (30 meters deemed clinically significant by AACVPR) 356.62 384.66 [facility] Shortness of Breath Questionnaire (5 point decrease deemed clinically significant by AACVPR) 36 42 Rate Your Plate 47 52 PHQ-9 Depression Screening 3 4 Health Related Quality of Life (COPD assessment Test) 18 19 Patient was provided with a home exercise program and plans to continue exercise by exercising at the [facility] in his [place] and/or attending phase 3 rehab at [facility]. Hardik Jo HOSP Observed: 01/24/2018 Status: COMPLETED Source: [place] 12:00 AM [facility] REPOSITORY [facility] EVAN FLORES ([id number]) 1945 M Date Time Provider Department 01/24/18 THONG MARMOLEJO) [facility] During your visit today, we recorded the following information about you: Hardik Jo 01/24/2018 7:18 AM Signed Pulmonary Rehabilitation- Hospital Based Program Referring Physician: Dr. Kirti Arango Diagnosis: IPF Start Date: 11-26-17 Discharge Date: 01-23-18 Sessions Completed: This pleasant and motivated patient demonstrated improved exercise tolerance by achieving 3.2 METs during exercise for 40 continuous minutes. This is an increase from the start of rehabilitation, where the patient was only at a 2.7 MET level for 20 minutes. SpO2 stayed above 90% during exercise using 4-6 liter/min flow. Medications reviewed with the patient and patient stated they are correct in the [employer] system. Outcome Pre-Program Post-Program Body Weight 172.1 169.1 BMI 22.8 22.3 Waist Circumference Blood Pressure 151/83 130/82 Pulse Ox 99% 99% In Rehab Peak Mets 2.7 3.2 6-Minute Walk Test (30 meters deemed clinically significant by AACVPR) 356.62 384.66 [facility] Shortness of Breath Questionnaire (5 point decrease deemed clinically significant by AACVPR) 36 42 Rate Your Plate 47 52 PHQ-9 Depression Screening 3 4 Health Related Quality of Life (COPD assessment Test) 18 19 Patient was provided with a home exercise program and plans to continue exercise by exercising at the [facility] in his [place] and/or attending phase 3 rehab at [facility]. Haridk Jo Allergies As of Date: 01/24/2018 (No Known Allergies) Date Reviewed: 01/22/2018 Reviewed by: Selena Rust - Fully Assessed Reason for Visit: Pulmonary Rehab Summary [Other] Prescriptions as of 01/24/2018 Sig: LEVOTHYROXINE 25 MCG TABLET Take 1 tablet by mouth once d* CALTRATE 600 + D ORAL Take 1 tablet by mouth once d* PRAVASTATIN 20 MG TABLET Take 1 tablet by mouth daily * AMLODIPINE 5 MG TABLET Take 1 tablet by mouth once d* PANTOPRAZOLE 40 MG TABLET,DEL* Take 1 tablet by mouth once d* ASPIRIN 81 MG TABLET,DELAYED * Take 1 tablet by mouth once d* PIRFENIDONE 267 MG CAPSULE Take three (3) capsules by mo* Problem List As Of Date 01/24/2018 Noted Resolved IPF (idiopathic pulmonary fibrosis) (HCC) [J84.*INVALID FOR* CKD (chronic kidney disease) [N18.9] INVALID FOR* Hoarse voice quality [R49.0] INVALID FOR* GERD (gastroesophageal reflux disease) [K21.9] INVALID FOR* HTN (hypertension) [I10] INVALID FOR*11/07/2016 Gammopathy, 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 BPH (benign prostatic hyperplasia) [N40.0] INVALID FOR* Family history of ischemic heart disease [Z82.4*INVALID FOR* Coronary artery disease involving tyonek dougherty*INVALID FOR* More... 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] INVALID FOR* Acute midline low back pain [M54.5] INVALID FOR* Chronic hypoxemic respiratory failure (HCC) [J9*INVALID FOR* Pulmonary infiltrate [R91.8] INVALID FOR* Abnormal weight loss [R63.4] INVALID FOR* Encounter Status:Closed by THONG MARMOLEJO on 01/24/18 PROGRESS Observed: 01/23/2018 Status: COMPLETED Source: [place] 11:47 AM CLINIC OTHER [facility]AMPUS REPOSITORY O ID: [id number] Author: Thong (Ex Phys) Jaleel Service: (none) Author Type: Dryer And Washer Mechanic Type: Progress Notes Filed: 01/23/2018 12:24 PM Note Text: Pulmonary Rehabilitation Hospital Based Program Supervising Physician: Dr. Blair Diagnosis: IPF Phase: 2 Session Number: 18 Subjective Data: Patient reports I am feeling fine today, no unusual shortness of breath or chest discomfort. I am ready for exercise. Objective Data: Emergency room visits since your last visit. No Medication changes since last visit. No Today's exercise session was comprised of a warm-up, breathing technique practice, lower and upper body aerobic endurance training, upper and lower body resistance training and lower body stretching/flexibility training as a cool down. Patient tolerated physician prescribed exercise workload. Vitals WNL for patient. This is a hospital based pulmonary rehab program. Patient working towards exercise goals by increasing exercise duration. Patient working towards education goal by attending education sessions in pulmonary rehabilitation. Will educate on disease and symptom management as needed. The education topic provided to the patient today was other disease of lung. The patient received this education by video, staff/patient discussion and receiving of an educational hand- out. Patient has verbalized understanding of education topic and the relation to disease managment. Patient's Daily Exercise Log will be scanned into [employer] once it is completed. These can be viewed by going under the scanned documents tab and looking for documents labeled Other respiratory therapy. Daily Exercise Logs contain exercise data such as, but not limited to modality, intensity, duration and frequency of exercise, along with vital signs pre-, during, and post-exercise. Refer to patient's paper medical record for pulse oximetry data, physician prescribed Individualized Treatment Plan, and education sessions covered. Total time of visit 80 minutes. Hardik Jo HOSP Observed: 01/23/2018 Status: COMPLETED Source: [place] 12:00 AM [facility] REPOSITORY Patient Update ([facility] EVAN FLORES ([id number]) 1945 M Date Time Provider Department 01/23/18 THONG MARMOLEJO) [facility] During your visit today, we recorded the following information about you: Hardik Jo 01/23/2018 12:24 PM Signed Pulmonary Rehabilitation Hospital Based Program Supervising Physician: Tejas Blair Diagnosis: IPF Phase: 2 Session Number: 18 Subjective Data: Patient reports ANDquot;I am feeling fine today, no unusual shortness of breath or chest discomfort. I am ready for exercise.ANDquot; Objective Data: Emergency room visits since your last visit. No Medication changes since last visit. No Today's exercise session was comprised of a warm-up, breathing technique practice, lower and upper body aerobic endurance training, upper and lower body resistance training and lower body stretching/flexibility training as a cool down. Patient tolerated physician prescribed exercise workload. Vitals WNL for patient. This is a hospital based pulmonary rehab program. Patient working towards exercise goals by increasing exercise duration. Patient working towards education goal by attending education sessions in pulmonary rehabilitation. Will educate on disease and symptom management as needed. The education topic provided to the patient today was other disease of lung. The patient received this education by video, staff/patient discussion and receiving of an educational hand-out. Patient has verbalized understanding of education topic and the relation to disease managment. Patient's Daily Exercise Log will be scanned into [employer] once it is completed. These can be viewed by going under the ANDquot;scanned documentsANDquot; tab and looking for documents labeled ANDquot;Other respiratory therapy.ANDquot; Daily Exercise Logs contain exercise data such as, but not limited to modality, intensity, duration and frequency of exercise, along with vital signs pre-, during, and post-exercise. Refer to patient's paper medical record for pulse oximetry data, physician prescribed Individualized Treatment Plan, and education sessions covered. Total time of visit 80 minutes. Thong Marmolejo,Ex Phys Allergies As of Date: 01/23/2018 (No Known Allergies) Date Reviewed: 01/22/2018 Reviewed by: Selena Rust - Fully Assessed Prescriptions as of 01/23/2018 Sig: LEVOTHYROXINE 25 MCG TABLET Take 1 tablet by mouth once d* CALTRATE 600 + D ORAL Take 1 tablet by mouth once d* PRAVASTATIN 20 MG TABLET Take 1 tablet by mouth daily * AMLODIPINE 5 MG TABLET Take 1 tablet by mouth once d* PANTOPRAZOLE 40 MG TABLET,DEL* Take 1 tablet by mouth once d* ASPIRIN 81 MG TABLET,DELAYED * Take 1 tablet by mouth once d* PIRFENIDONE 267 MG CAPSULE Take three (3) capsules by mo* Problem List As Of Date 01/23/2018 Noted Resolved IPF (idiopathic pulmonary fibrosis) (HCC) [J84.*INVALID FOR* CKD (chronic kidney disease) [N18.9] INVALID FOR* Hoarse voice quality [R49.0] INVALID FOR* GERD (gastroesophageal reflux disease) [K21.9] INVALID FOR* HTN (hypertension) [I10] INVALID FOR*11/07/2016 Gammopathy, 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 BPH (benign prostatic hyperplasia) [N40.0] INVALID FOR* Family history of ischemic heart disease [Z82.4*INVALID FOR* Coronary artery disease involving tyonek dougherty*INVALID FOR* More... 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] INVALID FOR* Acute midline low back pain [M54.5] INVALID FOR* Chronic hypoxemic respiratory failure (HCC) [J9*INVALID FOR* Pulmonary infiltrate [R91.8] INVALID FOR* Abnormal weight loss [R63.4] INVALID FOR* Encounter Status:Closed by THONG MARMOLEJO on 01/23/18 PROGRESS Observed: 01/22/2018 Status: COMPLETED Source: [place] 11:10 AM [facility] O ID: [id number] Author: Julienne Campo (Sw) Service: (none) Author Type: Wind Tunnel Technician Type: Progress Notes Filed: 01/22/2018 11:14 AM Note Text: SOCIAL WORK DISTRESS ASSESSMENT Referral made due to:Moderate distress Contact was made: [id number] Problems Addressed: Practical: Treatment decisions/concerns Family: N/A Emotional: Nervousness Spiritual Concerns: N/A Physical Problems: Breathing, Fatigue and Nose dry/congested Exercising: N/A Stress Management: No Is the patient's distress related to a change in quality of life? No Patient with current Suicidal Ideation: No MENTAL HEALTH HISTORY: No Substance Use and Treatment History: denied History of Abuse: denied History of combat/trauma: No INTERVENTION/PLAN: Monitor patient response to treatment Communicate pertinent medical/psychosocial information to [facility] team Provide emotional support to patient/family Provided education on distress and screening process Continue follow up as needed Resources and Referrals: ? Internal: NA ? External: N/A Follow up appointment with [facility] in: [facility] met with patient regarding responses on KP tablet. Patient reports his responses were indicative of stressors with another health condition unrelated to what he sees this office for. SW talked with patient about his concerns and what plans are in place to address his needs. Patient denies any needs at this time and says he is planning on scheduling his colonoscopy since he is due. Patient reports he does not feel as though his nervousness (as indicated on tablet) is unmanageable. Patient reports he has a good support network to turn to. Patient is agreeable to calling this office if any needs arise. KAYLAH Johnson PROGRESS Observed: 01/22/2018 Status: COMPLETED Source: [place] 10:18 AM [facility] REPOSITORY HNO ID: [id number] Author: Lino Toribio Service: (none) Author Type: Physician Type: Progress Notes Filed: 01/22/2018 10:39 AM Note Text: Diagnosis: 1) MGUS HPI: The patient is a 71-year-old male with a past medical history significant for pulmonary fibrosis (history outlined by Dr. Arango 05/27/2015), hypertension and BPH. He was referred to a briquetting machine operator in the [facility] in February 2015 for an increase in serum creatinine. Between February 2012 and May 2014, the serum creatinine ranged between 0.86 mg/dL and 0.91 mg/dL. In August 2014, the serum creatinine was observed increased 1.22 mg/dL and between September and January 2015 the creatinine increased 1.3 and subsequently 1.38 mg/dL. Workup included a renal ultrasound which demonstrated a normal sized left kidney (11.3 cm) and generalized renal atrophy of the right kidney appearance of which was chronic (8.3 cm). Additionally, the patient had lab work which demonstrated a small serum monoclonal protein quantified at 0.3 g/dL. It's unclear as to whether or not immunofixation was performed. No clear etiology was determined. He had a post void residual 73 cc it was attributed to prostatic hypertrophy. Spot urine for microalbumin to creatinine ratio was normal at 17.5. Patient did not routinely use NSAIDs. Initial work up here 05/2015. BONE MARROW, CORE BIOPSY, CLOT SECTION, ASPIRATE SMEAR, PERIPHERAL BLOOD: - NORMOCELLULAR BONE MARROW WITH TRILINEAGE HEMATOPOIESIS. - NORMAL M:E RATIO. - STORAGE IRON PRESENT. - 3% PLASMA CELLS. . - SEE COMMENT. Comment: The history of the low level paraprotein (possibly IgM kappa) is noted. Flow cytometry was performed and showed no evidence of a lymphoproliferative disorder or monotypic plasma cell population. There is no overt evidence of plasma cell neoplasm but correlation with clinical, laboratory, and radiology findings is suggested. Morphology/Interpretation: Unremarkable bone marrow aspirate. BONE MARROW ASPIRATE Normal % (0-2) 0 % Blasts (1-5) 2 % Promyelo (32-72) 45% Myelos/Metas/Bands/Segs (1-6) 2 % Eosinophils (0-1) 0 % Basophils (0-4) 5 % Monocytes (13-37) 31% Erythroid precursors (7-23) 12% Lymphocytes (0-2) 3 % Plasma cells Had PCI with stent to LAD 07/05/2016. Was having chest pain and presented to [facility]. Transferred to [facility]. Drug eluting stent placed in proximal LAD. Presents for ongoing hematologic management. Interim history: He was started on Prolia. He underwent an MRI of the lumbar spine in September which showed some compression fractures as well as degenerative disease. No evidence of lytic lesions are concerning bone marrow abnormalities. 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 Is using oxygen 24 hours a day. He's not having any symptoms of neuropathy. PMH, medications and allergies personally reviewed by me today. Any changes documented in appropriate section. ROS: Constitutional: Denies episodes of fever and night sweats. Neuro: Denies MEJIA, vertigo and imbalance. HEENT: No recent change in voice, vision or hearing. Resp: See above. CVS: Denies exertional chest pain, PND, orthopnea and LE edema. GI: Denies reflux, n/v, change in bowel habits and abdominal pain. No symptoms of stomatitis. : No dysuria or gross hematuria. Endo: No hot flashes. Musculoskeletal: See above. Derm: No rash. Heme: No unusual bleeding or bruising. Psych: Normal mood. PHYSICAL EXAM: Vitals: Blood pressure 144/74, pulse 78, temperature 36.7 ?C (98.1 ?F), temperature source Temporal Artery, weight 77.1 kg (170 lb), SpO2 96 %. Well-appearing and in no acute distress. EYES: Sclerae are anicteric bilaterally. NECK: Supple. No enlargement of thyroid. LYMPHATIC: There is no palpable cervical, supraclavicular or axillary adenopathy. RESPIRATORY: Inspiratory breath sounds are of normal intensity in all pastor. Coarse crackles at bases. CARDIOVASCULAR: Rhythm is regular. Normal intensity S1/S2. There is no gallop or murmur. Extremities: Free of edema. SKIN: No jaundice or rash. No petechiae. 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 No focal motor weakness. LABS: Component Latest Ref Rng AND Units 01/14/2018 Protein, Total 6.3 - 8.0 g/dL 7.1 Albumin 3.9 - 4.9 g/dL 4.1 Calcium 8.5 - 10.2 mg/dL 8.8 Bilirubin, Total 0.2 - 1.3 mg/dL 0.3 Alkaline Phosphatase 36 - 108 U/L 62 AST 14 - 40 U/L 26 Glucose 74 - 99 mg/dL 93 BUN 9 - 24 mg/dL 15 Creatinine 0.73 - 1.22 mg/dL 1.19 Sodium 136 - 144 mmol/L 136 Potassium 3.7 - 5.1 mmol/L 4.5 Chloride 97 - 105 mmol/L 99 CO2 22 - 30 mmol/L 24 Anion Gap 9 - 18 mmol/L 13 ALT 10 - 54 U/L 10 eGFR- >60 eGFR-All Other Races . 60 WBC, Kevan 3.70 - 11.00 k/uL 7.46 RBC, Kevan 4.20 - 6.00 m/uL 4.12 (L) Hemoglobin, Kevan 13.0 - 17.0 g/dL 12.9 (L) Hematocrit, Kevan 39.0 - 51.0 % 39.3 MCV, Ray[place] 80.0 - 100.0 fL 95.4 MCH, [place] 26.0 - 34.0 pg 31.3 MCHC, [place] 30.5 - 36.0 g/dL 32.8 RDW, Kevan 11.5 - 15.0 % 12.8 Platelet Cnt, Kevan 150 - 400 k/uL 254 MPV, [place] 9.0 - 12.7 fL 9.4 Absol Gran Count 1.45 - 7.50 k/uL 4.47 B2 Microglobulin 0.8 - 2.2 mg/L 2.6 (H) Component Latest Ref Rng AND Units 06/21/2015 01/17/2016 07/18/2016 07/16/2017 01/14/2018 Protein, Total 6.0 - 8.4 g/dL 7.1 6.9 7.0 8.0 6.7 Albumin for SPE 3.37 - 4.23 gm/dL 3.94 3.69 3.72 4.29 (H) 3.73 Alpha 1 Globulin 0.18 - 0.31 gm/dL 0.27 0.22 0.21 0.25 0.17 (L) Alpha 2 Globulin 0.52 - 0.97 gm/dL 0.69 0.69 0.71 0.91 0.63 Beta Globulin 0.84 - 1.36 gm/dL 1.04 1.05 1.16 1.19 1.01 Gamma Globulin 0.70 - 1.44 gm/dL 1.16 1.26 1.20 1.36 1.15 Interpretation (Prot Electro) SEE COMMENT SEE COMMENT SEE COMMENT SEE COMMENT SEE COMMENT M-Protein Location Gamma fraction Gamma fraction Gamma fraction Gamma fraction Gamma fraction M-Protein Concentration 0.00 gm/dL 0.12 (H) 0.32 (H) 0.31 (H) 0.29 (H) 0.27 (H) SPE Staff Review Reviewed by Ash Nelson M.D. ([id number]) Reviewed by Melia Vasquez MD ([id number]) Reviewed by Melia Vasquez MD ([id number]) Reviewed by Ash Nelson M.D. ([id number]) Reviewed by Sincere Oneal M.D., PhD ([id number]) Component Latest Ref Rng AND Units 06/21/2015 01/17/2016 07/18/2016 07/16/2017 01/14/2018 Purcell Free, Serum 3.30 - 19.40 mg/L 20.1 (H) 38.9 (H) 43.1 (H) 33.9 (H) 34.1 (H) Lambda Free, Serum 5.7 - 26.3 mg/L 20.3 27.0 (H) 24.3 25.9 27.4 (H) K/L Ratio, Serum 0.26 - 1.65 0.99 1.44 1.77 (H) 1.31 1.24 ASSESSMENT/PLAN: (273.1) Monoclonal gammopathy (primary encounter diagnosis) Stable MP overall. -No symptoms of hyperviscosity. -Reviewed labs with him in detail. He had many questions regarding abnormal labs and I went through all his lab work in detail and explained the meaning of the different values. Showed him that most importantly the trend showing that his serum monoclonal protein concentration has been stable over the last 2-1/2 years. Again reviewed with him the concept of monoclonal gammopathy of undetermined significance. Also revisited the results of his bone marrow biopsy with him and gave him assurance that there is no sign of progression presently. Answered all of his questions to his satisfaction. Plan: -Reassess in a year. Total dsrs-qc-navw time was >15 minutes with greater than 10 minutes spent discussing the issues outlined above and/or coordinating care. Lino Toribio DO CNOVSP Observed: 01/22/2018 Status: COMPLETED Source: [place] 9:50 AM [facility] REPOSITORY Visit (SP) Office ([place]) EVAN FLORES ([id number]) 1945 M Date Time Provider Department 01/22/18 9:50 AM LINO TORIBIO During your visit today, we recorded the following information about you: Temperature Pulse Blood pressure Weight 98.1 degrees 78/minute 144/74 77.1 kg Lino Toribio DO 01/22/2018 10:39 AM Signed Diagnosis: 1) MGUS HPI: The patient is a 71-year-old male with a past medical history significant for pulmonary fibrosis (history outlined by Dr. Arango 05/27/2015), hypertension and BPH. He was referred to a briquetting machine operator in the [facility] in February 2015 for an increase in serum creatinine. Between February 2012 and May 2014, the serum creatinine ranged between 0.86 mg/dL and 0.91 mg/dL. In August 2014, the serum creatinine was observed increased 1.22 mg/dL and between September and January 2015 the creatinine increased 1.3 and subsequently 1.38 mg/dL. Workup included a renal ultrasound which demonstrated a normal sized left kidney (11.3 cm) and generalized renal atrophy of the right kidney appearance of which was chronic (8.3 cm). Additionally, the patient had lab work which demonstrated a small serum monoclonal protein quantified at 0.3 g/dL. It's unclear as to whether or not immunofixation was performed. No clear etiology was determined. He had a post void residual 73 cc it was attributed to prostatic hypertrophy. Spot urine for microalbumin to creatinine ratio was normal at 17.5. Patient did not routinely use NSAIDs. Initial work up here 05/2015. BONE MARROW, CORE BIOPSY, CLOT SECTION, ASPIRATE SMEAR, PERIPHERAL BLOOD: - NORMOCELLULAR BONE MARROW WITH TRILINEAGE HEMATOPOIESIS. - NORMAL M:E RATIO. - STORAGE IRON PRESENT. - 3% PLASMA CELLS. . - SEE COMMENT. Comment: The history of the low level paraprotein (possibly IgM kappa) is noted. Flow cytometry was performed and showed no evidence of a lymphoproliferative disorder or monotypic plasma cell population. There is no overt evidence of plasma cell neoplasm but correlation with clinical, laboratory, and radiology findings is suggested. Morphology/Interpretation: Unremarkable bone marrow aspirate. BONE MARROW ASPIRATE Normal % (0-2) 0 % Blasts (1-5) 2 % Promyelo (32-72) 45% Myelos/Metas/Bands/Segs (1-6) 2 % Eosinophils (0-1) 0 % Basophils (0-4) 5 % Monocytes (13-37) 31% Erythroid precursors (7-23) 12% Lymphocytes (0-2) 3 % Plasma cells Had PCI with stent to LAD 07/05/2016. Was having chest pain and presented to [facility]. Transferred to [facility]. Drug eluting stent placed in proximal LAD. Presents for ongoing hematologic management. Interim history: He was started on Prolia. He underwent an MRI of the lumbar spine in September which showed some compression fractures as well as degenerative disease. No evidence of lytic lesions are concerning bone marrow abnormalities. 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 Is using oxygen 24 hours a day. He's not having any symptoms of neuropathy. PMH, medications and allergies personally reviewed by me today. Any changes documented in appropriate section. ROS: Constitutional: Denies episodes of fever and night sweats. Neuro: Denies MEJIA, vertigo and imbalance. HEENT: No recent change in voice, vision or hearing. Resp: See above. CVS: Denies exertional chest pain, PND, orthopnea and LE edema. GI: Denies reflux, n/v, change in bowel habits and abdominal pain. No symptoms of stomatitis. : No dysuria or gross hematuria. Endo: No hot flashes. Musculoskeletal: See above. Derm: No rash. Heme: No unusual bleeding or bruising. Psych: Normal mood. PHYSICAL EXAM: Vitals: Blood pressure 144/74, pulse 78, temperature 36.7 ?C (98.1 ?F), temperature source Temporal Artery, weight 77.1 kg (170 lb), SpO2 96 %. Well-appearing and in no acute distress. EYES: Sclerae are anicteric bilaterally. NECK: Supple. No enlargement of thyroid. LYMPHATIC: There is no palpable cervical, supraclavicular or axillary adenopathy. RESPIRATORY: Inspiratory breath sounds are of normal intensity in all pastor. Coarse crackles at bases. CARDIOVASCULAR: Rhythm is regular. Normal intensity S1/S2. There is no gallop or murmur. Extremities: Free of edema. SKIN: No jaundice or rash. No petechiae. 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 No focal motor weakness. LABS: Component Latest Ref Rng ANDamp; Units 01/14/2018 Protein, Total 6.3 - 8.0 g/dL 7.1 Albumin 3.9 - 4.9 g/dL 4.1 Calcium 8.5 - 10.2 mg/dL 8.8 Bilirubin, Total 0.2 - 1.3 mg/dL 0.3 Alkaline Phosphatase 36 - 108 U/L 62 AST 14 - 40 U/L 26 Glucose 74 - 99 mg/dL 93 BUN 9 - 24 mg/dL 15 Creatinine 0.73 - 1.22 mg/dL 1.19 Sodium 136 - 144 mmol/L 136 Potassium 3.7 - 5.1 mmol/L 4.5 Chloride 97 - 105 mmol/L 99 CO2 22 - 30 mmol/L 24 Anion Gap 9 - 18 mmol/L 13 ALT 10 - 54 U/L 10 eGFR- ANDgt;60 eGFR-All Other Races . 60 WBC, Ray[place] 3.70 - 11.00 k/uL 7.46 RBC, Kevan 4.20 - 6.00 m/uL 4.12 (L) Hemoglobin, [place] 13.0 - 17.0 g/dL 12.9 (L) Hematocrit, [place] 39.0 - 51.0 % 39.3 MCV, [place] 80.0 - 100.0 fL 95.4 MCH, Kevan 26.0 - 34.0 pg 31.3 MCHC, [place] 30.5 - 36.0 g/dL 32.8 RDW, [place] 11.5 - 15.0 % 12.8 Platelet Cnt, Kevan 150 - 400 k/uL 254 MPV, Kevan 9.0 - 12.7 fL 9.4 Absol Gran Count 1.45 - 7.50 k/uL 4.47 B2 Microglobulin 0.8 - 2.2 mg/L 2.6 (H) Component Latest Ref Rng ANDamp; Units 06/21/2015 01/17/2016 07/18/2016 07/16/2017 01/14/2018 Protein, Total 6.0 - 8.4 g/dL 7.1 6.9 7.0 8.0 6.7 Albumin for SPE 3.37 - 4.23 gm/dL 3.94 3.69 3.72 4.29 (H) 3.73 Alpha 1 Globulin 0.18 - 0.31 gm/dL 0.27 0.22 0.21 0.25 0.17 (L) Alpha 2 Globulin 0.52 - 0.97 gm/dL 0.69 0.69 0.71 0.91 0.63 Beta Globulin 0.84 - 1.36 gm/dL 1.04 1.05 1.16 1.19 1.01 Gamma Globulin 0.70 - 1.44 gm/dL 1.16 1.26 1.20 1.36 1.15 Interpretation (Prot Electro) SEE COMMENT SEE COMMENT SEE COMMENT SEE COMMENT SEE COMMENT M-Protein Location Gamma fraction Gamma fraction Gamma fraction Gamma fraction Gamma fraction M-Protein Concentration 0.00 gm/dL 0.12 (H) 0.32 (H) 0.31 (H) 0.29 (H) 0.27 (H) SPE Staff Review Reviewed by Ash Nelson M.D. ([id number]) Reviewed by Melia Vasquez MD ([id number]) Reviewed by Melia Vasquez MD ([id number]) Reviewed by Ash Nelson M.D. ([id number]) Reviewed by Sincere Oneal M.D., PhD ([id number]) Component Latest Ref Rng ANDamp; Units 06/21/2015 01/17/2016 07/18/2016 07/16/2017 01/14/2018 Purcell Free, Serum 3.30 - 19.40 mg/L 20.1 (H) 38.9 (H) 43.1 (H) 33.9 (H) 34.1 (H) Lambda Free, Serum 5.7 - 26.3 mg/L 20.3 27.0 (H) 24.3 25.9 27.4 (H) K/L Ratio, Serum 0.26 - 1.65 0.99 1.44 1.77 (H) 1.31 1.24 ASSESSMENT/PLAN: (273.1) Monoclonal gammopathy (primary encounter diagnosis) Stable MP overall. -No symptoms of hyperviscosity. -Reviewed labs with him in detail. He had many questions regarding abnormal labs and I went through all his lab work in detail and explained the meaning of the different values. Showed him that most importantly the trend showing that his serum monoclonal protein concentration has been stable over the last 2-1/2 years. Again reviewed with him the concept of monoclonal gammopathy of undetermined significance. Also revisited the results of his bone marrow biopsy with him and gave him assurance that there is no sign of progression presently. Answered all of his questions to his satisfaction. Plan: -Reassess in a year. Total bfbs-bv-rlrc time was ANDgt;15 minutes with greater than 10 minutes spent discussing the issues outlined above and/or coordinating care. Lino Toribio DO Referring Provider: LINO TORIBIO [[id number]] Allergies As of Date: 01/22/2018 (No Known Allergies) Date Reviewed: 01/22/2018 Reviewed by: Selena Rust - Fully Assessed Reason for Visit: Established Patient [175] Cmt: Pt c/o feeling lightheaded x 1 month* Reason For Visit History Recorded Primary Visit Diagnosis:Gammopathy, monoclonal [D47.2] Follow-up and Disposition History Recorded Prescriptions as of 01/22/2018 Sig: LEVOTHYROXINE 25 MCG TABLET Take 1 tablet by mouth once d* CALTRATE 600 + D ORAL Take 1 tablet by mouth once d* PRAVASTATIN 20 MG TABLET Take 1 tablet by mouth daily * AMLODIPINE 5 MG TABLET Take 1 tablet by mouth once d* PANTOPRAZOLE 40 MG TABLET,DEL* Take 1 tablet by mouth once d* ASPIRIN 81 MG TABLET,DELAYED * Take 1 tablet by mouth once d* PIRFENIDONE 267 MG CAPSULE Take three (3) capsules by mo* Problem List As Of Date 01/22/2018 Noted Resolved IPF (idiopathic pulmonary fibrosis) (HCC) [J84.*INVALID FOR* CKD (chronic kidney disease) [N18.9] INVALID FOR* Hoarse voice quality [R49.0] INVALID FOR* GERD (gastroesophageal reflux disease) [K21.9] INVALID FOR* HTN (hypertension) [I10] INVALID FOR*11/07/2016 Gammopathy, 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 BPH (benign prostatic hyperplasia) [N40.0] INVALID FOR* Family history of ischemic heart disease [Z82.4*INVALID FOR* Coronary artery disease involving tyonek dougherty*INVALID FOR* More... 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] INVALID FOR* Acute midline low back pain [M54.5] INVALID FOR* Chronic hypoxemic respiratory failure (HCC) [J9*INVALID FOR* Pulmonary infiltrate [R91.8] INVALID FOR* Abnormal weight loss [R63.4] INVALID FOR* Encounter Status:Closed by LINO TORIBIO DO on 01/22/18 CNSW Observed: 01/22/2018 Status: COMPLETED Source: [place] 12:00 AM [facility] REPOSITORY Social Work (HEMAWS) EVAN FLORES ([id number]) 1945 M Date Time Provider Department 01/22/18 JULIENNE CAMPO (SW) During your visit today, we recorded the following information about you: KAYLAH Johnson 01/22/2018 11:14 AM Signed SOCIAL WORK DISTRESS ASSESSMENT Referral made due to:Moderate distress Contact was made: [id number] Problems Addressed: Practical: Treatment decisions/concerns Family: N/A Emotional: Nervousness Spiritual Concerns: N/A Physical Problems: Breathing, Fatigue and Nose dry/congested Exercising: N/A Stress Management: No Is the patient's distress related to a change in quality of life? No Patient with current Suicidal Ideation: No MENTAL HEALTH HISTORY: No Substance Use and Treatment History: denied History of Abuse: denied History of combat/trauma: No INTERVENTION/PLAN: Monitor patient response to treatment Communicate pertinent medical/psychosocial information to [facility] team Provide emotional support to patient/family Provided education on distress and screening process Continue follow up as needed Resources and Referrals: ? Internal: NA ? External: N/A Follow up appointment with ISA in: [facility] ISA met with patient regarding responses on KP tablet. Patient reports his responses were indicative of stressors with another health condition unrelated to what he sees this office for. ISA talked with patient about his concerns and what plans are in place to address his needs. Patient denies any needs at this time and says he is planning on scheduling his colonoscopy since he is due. Patient reports he does not feel as though his nervousness (as indicated on tablet) is unmanageable. Patient reports he has a good support network to turn to. Patient is agreeable to calling this office if any needs arise. KAYLAH Johnson Allergies As of Date: 01/22/2018 (No Known Allergies) Date Reviewed: 01/22/2018 Reviewed by: Selena Rust - Fully Assessed Reason for Visit: Social Work Services [507] Cmt: distress assessment Prescriptions as of 01/22/2018 Sig: LEVOTHYROXINE 25 MCG TABLET Take 1 tablet by mouth once d* CALTRATE 600 + D ORAL Take 1 tablet by mouth once d* PRAVASTATIN 20 MG TABLET Take 1 tablet by mouth daily * AMLODIPINE 5 MG TABLET Take 1 tablet by mouth once d* PANTOPRAZOLE 40 MG TABLET,DEL* Take 1 tablet by mouth once d* ASPIRIN 81 MG TABLET,DELAYED * Take 1 tablet by mouth once d* PIRFENIDONE 267 MG CAPSULE Take three (3) capsules by mo* Problem List As Of Date 01/22/2018 Noted Resolved IPF (idiopathic pulmonary fibrosis) (HCC) [J84.*INVALID FOR* CKD (chronic kidney disease) [N18.9] INVALID FOR* Hoarse voice quality [R49.0] INVALID FOR* GERD (gastroesophageal reflux disease) [K21.9] INVALID FOR* HTN (hypertension) [I10] INVALID FOR*11/07/2016 Gammopathy, 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 BPH (benign prostatic hyperplasia) [N40.0] INVALID FOR* Family history of ischemic heart disease [Z82.4*INVALID FOR* Coronary artery disease involving tyonek dougherty*INVALID FOR* More... 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] INVALID FOR* Acute midline low back pain [M54.5] INVALID FOR* Chronic hypoxemic respiratory failure (HCC) [J9*INVALID FOR* Pulmonary infiltrate [R91.8] INVALID FOR* Abnormal weight loss [R63.4] INVALID FOR* Encounter Status:Closed by JULIENNE CAMPO on 01/22/18 PROGRESS Observed: 01/21/2018 Status: COMPLETED Source: [place] 11:52 AM CLINIC OTHER CAMPUS REPOSITORY O ID: [id number] Author: Angel Han (Ex Phys) Deon Service: (none) 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 Blair Diagnosis: IPF Phase: 2 Session Number: 17 Subjective Data: Patient reports I am feeling fine today, no unusual shortness of breath or chest discomfort. I am ready for exercise. Objective Data: Emergency room visits since your last visit. No Medication changes since last visit. No Today's exercise session was comprised of a warm-up, breathing technique practice, lower and upper body aerobic endurance training, upper and lower body resistance training and lower body stretching/flexibility training as a cool down. Patient tolerated physician prescribed exercise workload. Vitals WNL for patient. This is a hospital based pulmonary rehab program. Patient working towards exercise goals by increasing exercise intensity. Patient working towards education goal by attending education sessions in pulmonary rehabilitation. Will educate on disease and symptom management as needed. The education topic provided to the patient today was airway clearance. The patient received this education by video, staff/patient discussion and receiving of an educational hand-out. Patient has verbalized understanding of education topic and the relation to disease managment. Patient's Daily Exercise Log will be scanned into [employer] once it is completed. These can be viewed by going under the scanned documents tab and looking for documents labeled Other respiratory therapy. Daily Exercise Logs contain exercise data such as, but not limited to modality, intensity, duration and frequency of exercise, along with vital signs pre-, during, and post-exercise. Refer to patient's paper medical record for pulse oximetry data, physician prescribed Individualized Treatment Plan, and education sessions covered. Total time of visit 80 minutes. Hardik Arcos HOS[facility] Observed: 01/21/2018 Status: COMPLETED Source: [place] 12:00 AM [facility] REPOSITORY Patient Update ([facility]) EVAN FLORES ([id number]) 1945 M Date Time Provider Department 01/21/18 ANGEL CHAVARRIA (EX PHYS) [facility] During your visit today, we recorded the following information about you: Hardik Arcos 01/21/2018 12:54 PM Signed [facility] Supervising Physician: Tejas Blair Diagnosis: IPF Phase: 2 Session Number: 17 Subjective Data: Patient reports ANDquot;I am feeling fine today, no unusual shortness of breath or chest discomfort. I am ready for exercise.ANDquot; Objective Data: Emergency room visits since your last visit. No Medication changes since last visit. No Today's exercise session was comprised of a warm-up, breathing technique practice, lower and upper body aerobic endurance training, upper and lower body resistance training and lower body stretching/flexibility training as a cool down. Patient tolerated physician prescribed exercise workload. Vitals WNL for patient. This is a hospital based pulmonary rehab program. Patient working towards exercise goals by increasing exercise intensity. Patient working towards education goal by attending education sessions in pulmonary rehabilitation. Will educate on disease and symptom management as needed. The education topic provided to the patient today was airway clearance. The patient received this education by video, staff/patient discussion and receiving of an educational hand-out. Patient has verbalized understanding of education topic and the relation to disease managment. Patient's Daily Exercise Log will be scanned into [employer] once it is completed. These can be viewed by going under the ANDquot;scanned documentsANDquot; tab and looking for documents labeled ANDquot;Other respiratory therapy.ANDquot; Daily Exercise Logs contain exercise data such as, but not limited to modality, intensity, duration and frequency of exercise, along with vital signs pre-, during, and post-exercise. Refer to patient's paper medical record for pulse oximetry data, physician prescribed Individualized Treatment Plan, and education sessions covered. Total time of visit 80 minutes. Hardik Arcos Allergies As of Date: 01/21/2018 (No Known Allergies) Date Reviewed: 12/26/2017 Reviewed by: Chelly Mart Ma - Fully Assessed Prescriptions as of 01/21/2018 Sig: LEVOTHYROXINE 25 MCG TABLET Take 1 tablet by mouth once d* CALTRATE 600 + D ORAL Take by mouth. PRAVASTATIN 20 MG TABLET Take 1 tablet by mouth daily * AMLODIPINE 5 MG TABLET Take 1 tablet by mouth once d* PANTOPRAZOLE 40 MG TABLET,DEL* Take 1 tablet by mouth once d* ASPIRIN 81 MG TABLET,DELAYED * Take 1 tablet by mouth once d* PIRFENIDONE 267 MG CAPSULE Take three (3) capsules by mo* Problem List As Of Date 01/21/2018 Noted Resolved IPF (idiopathic pulmonary fibrosis) (HCC) [J84.*INVALID FOR* CKD (chronic kidney disease) [N18.9] INVALID FOR* Hoarse voice quality [R49.0] INVALID FOR* GERD (gastroesophageal reflux disease) [K21.9] INVALID FOR* HTN (hypertension) [I10] INVALID FOR*11/07/2016 Gammopathy, 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 BPH (benign prostatic hyperplasia) [N40.0] INVALID FOR* Family history of ischemic heart disease [Z82.4*INVALID FOR* Coronary artery disease involving tyonek dougherty*INVALID FOR* More... 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] INVALID FOR* Acute midline low back pain [M54.5] INVALID FOR* Chronic hypoxemic respiratory failure (HCC) [J9*INVALID FOR* Pulmonary infiltrate [R91.8] INVALID FOR* Abnormal weight loss [R63.4] INVALID FOR* Encounter Status:Closed by ANGEL CHAVARRIA on 01/21/18 PROGRESS Observed: 01/16/2018 Status: COMPLETED Source: [place] 10:57 AM CL[facility] OTHER CAMPUS REPOSITORY HNO ID: [id number] Author: Angel Han (Ex Phys) Deon Service: (none) Author Type: Dryer And Washer Mechanic Type: Progress Notes Filed: 01/16/2018 12:28 PM Note Text: [facility] Supervising Physician: Dr. Blair Diagnosis: IPF Phase: 2 Session Number: 16 Subjective Data: Patient reports I am feeling fine today, no unusual shortness of breath or chest discomfort. I am ready for exercise. Objective Data: Emergency room visits since your last visit. No Medication changes since last visit. No Today's exercise session was comprised of a warm-up, breathing technique practice, lower and upper body aerobic endurance training, upper and lower body resistance training and lower body stretching/flexibility training as a cool down. Patient tolerated physician prescribed exercise workload. Vitals WNL for patient. This is a hospital based pulmonary rehab program. Patient working towards exercise goals by increasing exercise intensity. Patient working towards education goal by attending education sessions in pulmonary rehabilitation. Will educate on disease and symptom management as needed. The education topic provided to the patient today was preventing infection. The patient received this education by video, staff/patient discussion and receiving of an educational hand- out. Patient has verbalized understanding of education topic and the relation to disease managment. Patient's Daily Exercise Log will be scanned into [employer] once it is completed. These can be viewed by going under the scanned documents tab and looking for documents labeled Other respiratory therapy. Daily Exercise Logs contain exercise data such as, but not limited to modality, intensity, duration and frequency of exercise, along with vital signs pre-, during, and post-exercise. Refer to patient's paper medical record for pulse oximetry data, physician prescribed Individualized Treatment Plan, and education sessions covered. Total time of visit 80 minutes. Angel Gibbsjulia Hardik Ovalle HOSP Observed: 01/16/2018 Status: COMPLETED Source: [place] 12:00 AM [facility] [place] REPOSITORY Patient Update ([facility]) EVAN FLORES ([id number]) 1945 M Date Time Provider Department 01/16/18 ANGEL CHAVARRIA (EX PHYS) [facility] During your visit today, we recorded the following information about you: Angel Emely GibbsHardik dumont Phy 01/16/2018 12:28 PM Signed [facility] Supervising Physician: Tejas Blair Diagnosis: IPF Phase: 2 Session Number: 16 Subjective Data: Patient reports ANDquot;I am feeling fine today, no unusual shortness of breath or chest discomfort. I am ready for exercise.ANDquot; Objective Data: Emergency room visits since your last visit. No Medication changes since last visit. No Today's exercise session was comprised of a warm-up, breathing technique practice, lower and upper body aerobic endurance training, upper and lower body resistance training and lower body stretching/flexibility training as a cool down. Patient tolerated physician prescribed exercise workload. Vitals WNL for patient. This is a hospital based pulmonary rehab program. Patient working towards exercise goals by increasing exercise intensity. Patient working towards education goal by attending education sessions in pulmonary rehabilitation. Will educate on disease and symptom management as needed. The education topic provided to the patient today was preventing infection. The patient received this education by video, staff/patient discussion and receiving of an educational hand-out. Patient has verbalized understanding of education topic and the relation to disease managment. Patient's Daily Exercise Log will be scanned into [employer] once it is completed. These can be viewed by going under the ANDquot;scanned documentsANDquot; tab and looking for documents labeled ANDquot;Other respiratory therapy.ANDquot; Daily Exercise Logs contain exercise data such as, but not limited to modality, intensity, duration and frequency of exercise, along with vital signs pre-, during, and post-exercise. Refer to patient's paper medical record for pulse oximetry data, physician prescribed Individualized Treatment Plan, and education sessions covered. Total time of visit 80 minutes. Angel Chavarria, Ex Phy Allergies As of Date: 01/16/2018 (No Known Allergies) Date Reviewed: 12/26/2017 Reviewed by: Chelly Mart Ma - Fully Assessed Prescriptions as of 01/16/2018 Sig: LEVOTHYROXINE 25 MCG TABLET Take 1 tablet by mouth once d* CALTRATE 600 + D ORAL Take by mouth. PRAVASTATIN 20 MG TABLET Take 1 tablet by mouth daily * AMLODIPINE 5 MG TABLET Take 1 tablet by mouth once d* PANTOPRAZOLE 40 MG TABLET,DEL* Take 1 tablet by mouth once d* ASPIRIN 81 MG TABLET,DELAYED * Take 1 tablet by mouth once d* PIRFENIDONE 267 MG CAPSULE Take three (3) capsules by mo* Problem List As Of Date 01/16/2018 Noted Resolved IPF (idiopathic pulmonary fibrosis) (HCC) [J84.*INVALID FOR* CKD (chronic kidney disease) [N18.9] INVALID FOR* Hoarse voice quality [R49.0] INVALID FOR* GERD (gastroesophageal reflux disease) [K21.9] INVALID FOR* HTN (hypertension) [I10] INVALID FOR*11/07/2016 Gammopathy, 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 BPH (benign prostatic hyperplasia) [N40.0] INVALID FOR* Family history of ischemic heart disease [Z82.4*INVALID FOR* Coronary artery disease involving tyonek dougherty*INVALID FOR* More... 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] INVALID FOR* Acute midline low back pain [M54.5] INVALID FOR* Chronic hypoxemic respiratory failure (HCC) [J9*INVALID FOR* Pulmonary infiltrate [R91.8] INVALID FOR* Abnormal weight loss [R63.4] INVALID FOR* Encounter Status:Closed by FREIDAANGEL DUMONT on 01/16/18 PROGRESS Observed: 01/14/2018 Status: COMPLETED Source: [place] 11:49 AM [facility] OTHER CAMPUS REPOSITORY HNO ID: [id number] Author: Jessica (Danielle) DANIELLE Luciano Service: (none) Author Type: Registered Nurse Type: Progress Notes Filed: 01/14/2018 12:36 PM Note Text: [facility] Supervising Physician: Dr. Blair Diagnosis: IPF Phase: 2 Session Number: 15 Subjective Data: Patient reports I am feeling fine today, no unusual shortness of breath or chest discomfort. I am ready for exercise. Objective Data: Emergency room visits since your last visit. No Medication changes since last visit. No Today's exercise session was comprised of a warm-up, breathing technique practice, lower and upper body aerobic endurance training, upper and lower body resistance training and lower body stretching/flexibility training as a cool down. Patient tolerated physician prescribed exercise workload. Vitals WNL for patient. This is a hospital based pulmonary rehab program. Patient working towards exercise goals by increasing exercise intensity. Patient working towards education goal by attending education sessions in pulmonary rehabilitation. Will educate on disease and symptom management as needed. The education topic provided to the patient today was reading food labels. The patient received this education by video, staff/patient discussion and receiving of an educational hand-out. Patient has verbalized understanding of education topic and the relation to disease managment. Patient's Daily Exercise Log will be scanned into [employer] once it is completed. These can be viewed by going under the scanned documents tab and looking for documents labeled Other respiratory therapy. Daily Exercise Logs contain exercise data such as, but not limited to modality, intensity, duration and frequency of exercise, along with vital signs pre-, during, and post-exercise. Refer to patient's paper medical record for pulse oximetry data, physician prescribed Individualized Treatment Plan, and education sessions covered. Total time of visit 80 minutes. Jessica Luciano RN ALBUMIN URINE RANDOM Collected: 01/14/2018 Status: F Source: [place] 8:50 AM [facility] REPOSITORY TYPE CODE TESTS RESULT OUT OF REFERENCE UNITS RANGE LAB UALBR 0.0-23.0 mg/L Albumin Urine <12.0 Random Performed By: #### UALBR, URMPA, UEPG #### [facility] [address] [id number] MONOCLONAL PROT UR Collected: 01/14/2018 Status: F Source: [place] 8:50 AM [facility] REPOSITORY TYPE CODE TESTS RESULT OUT OF RANGE REFERENCE UNITS LAB UMPA No M protein is UMPA Result Abnormal identified. M protein Alert is present. LAB UINTP UMPA Interpretation SEE COMMENT Result Comment: An atypical restricted band is present in the kappa region. The presence of free kappa light chains in the urine is consistent with a kappa-containing monoclonal gammopathy. LAB UMPSTF UMPA Reviewed by Staff Review Sincere Oneal M.D., PhD ([id number]) Performed By: #### UALBR, URMPA, UEPG #### [address] [place], [place] [address] PROTEIN ELEC,UR RAND Collected: 01/14/2018 Status: F Source: [place] 8:50 AM [facility] REPOSITORY TYPE CODE TESTS RESULT OUT OF REFERENCE UNITS RANGE LAB UTPR 0-20 mg/dL Protein Urine Random 8 LAB UALB % Albumin 21.9 LAB UA1G >0 % Alpha 1 Globulin 5.9 LAB UA2G % Alpha 2 Globulin 21.2 LAB UBEG % Beta Globulin 26.1 LAB UGAG % Gamma Globulin 24.9 LAB UPEINT Interpretation SEE COMMENT Result Comment: No definitive M protein is identified on protein electrophoresis. LAB UPESTF Staff Reviewed by Review Ash Nelson M.D. ([id number]) Performed By: #### UALBR, URMPA, UEPG #### [address] [place], [place] [address] KEVAN ABS GR + CBC Collected: 01/14/2018 Status: F Source: [place] 8:45 AM [facility] [place] [facility] REPOSITORY TYPE CODE TESTS RESULT OUT OF REFERENCE UNITS RANGE LAB WWBC 3.70-11.00 k/uL [place] WBC 7.46 LAB WRBC 4.20-6.00 m/uL Low [place] RBC 4.12 LAB WHGB 13.0-17.0 g/dL Low [place] Hemoglobin 12.9 LAB WHCT 39.0-51.0 % [place] Hematocrit 39.3 LAB WMCV 80.0-100.0 fL [place] MCV 95.4 LAB WMCH 26.0-34.0 pg [place] MCH 31.3 LAB WMCHC 30.5-36.0 g/dL [place] MCHC 32.8 LAB WRDW 11.5-15.0 % [place] RDW 12.8 LAB WPLT 150-400 k/uL [place] Platelet Cnt 254 LAB WMPV 9.0-12.7 fL [place] MPV 9.4 Result Comment: Test performed at: [address] [place] [address]. LAB ABGRAN 1.45-7.50 k/uL Absol Gran 4.47 Count B2 MICROGLOBULIN Collected: 01/14/2018 Status: F Source: [place] 8:45 AM [facility] REPOSITORY TYPE CODE TESTS RESULT OUT OF REFERENCE UNITS RANGE LAB B2M 0.8-2.2 mg/L B2 Microglobulin High 2.6 Performed By: #### B2M, CMP, HBA1C, KLFRS, SEPG, MPASRM #### [facility] [address] [place] [address] COMP METABOLIC PANEL Collected: 01/14/2018 Status: F Source: [place] 8:45 AM [facility] REPOSITORY TYPE CODE TESTS RESULT OUT OF REFERENCE UNITS RANGE LAB TP 6.3-8.0 g/dL Protein, Total 7.1 LAB ALB 3.9-4.9 g/dL Albumin 4.1 LAB CA 8.5-10.2 mg/dL Calcium, Total 8.8 LAB TBIL 0.2-1.3 mg/dL Bilirubin, Total 0.3 LAB ALKP 36-108 U/L Alkaline Phosphatase 62 LAB AST 14-40 U/L AST 26 LAB GLU 74-99 mg/dL Glucose 93 Result Comment: The [place] [employer] (ADA) provides guidance for cutoff values for fasting glucose and random glucose. The ADA defines fasting as no caloric intake for at least 8 hours. Fas ting plasma glucose results between 100 to 125 mg/dL indicate increased risk for diabetes (prediabetes). Fasting plasma glucose results greater than or equal to 126 mg/dL meet the criteria for diagnosis of diabetes. In the absence of unequivocal hyperglycemia, results should be confirmed by repeat testing. In a patient with classic symptoms of hyperglycemia or hyperglycemic crisis, random plasma glucose results greater than or equal to 200 mg/dL meet the criteria for diagnosis of diabetes. Reference: Standards of Medical Care in Diabetes 2016, [place] [employer]. Diabetes Care. 2016.39(Suppl 1). LAB BUN 9-24 mg/dL BUN 15 LAB CRET 0.73-1.22 mg/dL Creatinine 1.19 LAB NA 136-144 mmol/L Sodium 136 LAB K 3.7-5.1 mmol/L Potassium 4.5 LAB CL 97-105 mmol/L Chloride 99 LAB CO2 22-30 mmol/L CO2 24 LAB AGAP 9-18 mmol/L Anion Gap 13 LAB ALT 10-54 U/L ALT 10 LAB GFRAA eGFR- Amer. >60 LAB GFRNAA . eGFR-All Other Races 60 Result Comment: eGFR (Estimated GFR) Units of measure: mL/min/1.73 meters squared eGFR is derived from the reexpressed MDRD Study equation using the following parameters: serum creatinine, age, gender and race. The creatinine assay has been calibrated to be traceable to IDMS. An eGFR <60 mL/min/1.73m2 for >3 months is consistent with chronic kidney disease. Refer to KDOQI guidelines for clinical interpretation. In patients with unstable renal function, e.g. those with acute kidney injury, the eGFR may not accurately reflect actual GFR. Performed By: #### B2M, CMP, HBA1C, KLFRS, SEPG, MPASRM #### [facility] [address] [place], [place] [address] HEMOGLOBIN A1C Collected: 01/14/2018 Status: F Source: [place] 8:45 AM [facility] REPOSITORY TYPE CODE TESTS RESULT OUT OF REFERENCE UNITS RANGE LAB HGBA1C 4.3-5.6 % Hemoglobin A1c 5.2 LAB HBA0 mg/dL Est. Average Glucose 103 Result Comment: eAG: (Estimated average glucose) is a calculated value from HgbA1c and is member service representative of the average blood glucose level in the last 2-3 month period. Performed By: #### B2M, CMP, HBA1C, KLFRS, SEPG, MPASRM #### [facility] [address] [place], [place] [address] KAPPA/YOUNG,FREE,SER Collected: Status: F Source: [place] 01/14/2018 8:45 AM [facility] REPOSITORY TYPE CODE TESTS RESULT OUT OF REFERENCE UNITS RANGE LAB FKAPS 3.30-19.40 mg/L High [place], 34.1 Free, Serum Result Comment: Rarely, increased serum free light chains values may not be detected due to antigen excess phenomenon. Results should always be correlated with other laboratory results and clinical findings. LAB FLAMS 5.7-26.3 mg/L High Lambda, Free, 27.4 Serum Result Comment: Rarely, increased serum free light chains values may not be detected due to antigen excess phenomenon. Results should always be correlated with other laboratory results and clinical findings. LAB KLRAT 0.26-1.65 K/L Ratio, 1.24 Serum Performed By: #### B2M, CMP, HBA1C, KLFRS, SEPG, MPASRM #### [facility] [address], [place] [address] PROTEIN ELECTROPHOR. Collected: 01/14/2018 Status: F Source: [place] 8:45 AM [facility] [place] REPOSITORY TYPE CODE TESTS RESULT OUT OF REFERENCE UNITS RANGE LAB TPSPE 6.0-8.4 g/dL Total Protein, SPE 6.7 LAB ALBE 3.37-4.23 gm/dL Albumin 3.73 LAB A1GL 0.18-0.31 gm/dL Alpha 1 Globulin Low 0.17 LAB A2GL 0.52-0.97 gm/dL Alpha 2 Globulin 0.63 LAB BEGL 0.84-1.36 gm/dL Beta Globulin 1.01 LAB GAGL 0.70-1.44 gm/dL Gamma Globulin 1.15 LAB SPEINT Interpretation SEE COMMENT Result Comment: An M protein is identified on protein electrophoresis. See separate immunofixation report for characterization of the M protein. LAB LOC M Protein Gamma Location fraction LAB GPERDL 0.00 gm/dL M Deshaun 0.27 High Concentratn LAB SPESTF SPE Staff Review Reviewed by Sincere Oneal M.D., PhD ([id number]) Performed By: #### B2M, CMP, HBA1C, KLFRS, SEPG, MPASRM #### [facility] [address], [place] [address] MONOCLONL PROTEIN,BL Collected: 01/14/2018 Status: F Source: [place] 8:45 AM [facility] REPOSITORY TYPE CODE TESTS RESULT OUT OF RANGE REFERENCE UNITS LAB MPAIGG 717-1411 mg/dL MPA Serum IgG 943 LAB MPAIGA 78-391 mg/dL High MPA Serum IgA 633 LAB MPAIGM 53-334 mg/dL MPA Serum IgM 134 LAB MPAK 534-1267 mg/dL Serum Purcell 942 LAB MPAL 253-653 mg/dL Serum Lambda 641 LAB MPAKL 1-3 MPA Elizabeth/Brown Ratio 1.47 LAB MPAR No M protein is MPA Result Abnormal identified. M protein Alert is present. LAB INTP MPA Interpretation SEE COMMENT Result Comment: Atypical restricted bands are present in the IgM and kappa regions. Consistent with IgM kappa monoclonal gammopathy. LAB MPASTF Staff Reviewed by Review Sincere Oneal M.D., PhD ([id number]) Performed By: #### B2M, CMP, HBA1C, KLFRS, SEPG, MPASRM #### [facility] [address], [place] [address] HOSP Observed: 01/14/2018 Status: COMPLETED Source: [place] 12:00 AM [facility] REPOSITORY Patient Update ([facility]) EVAN FLORES ([id number]) 1945 M Date Time Provider Department 01/14/18 JESSICA LUCIANO (DANIELLE) [facility] During your visit today, we recorded the following information about you: Jessica Luciano RN, RN 01/14/2018 12:36 PM Signed [facility] Supervising Physician: Tejas Blair Diagnosis: IPF Phase: 2 Session Number: 15 Subjective Data: Patient reports ANDquot;I am feeling fine today, no unusual shortness of breath or chest discomfort. I am ready for exercise.ANDquot; Objective Data: Emergency room visits since your last visit. No Medication changes since last visit. No Today's exercise session was comprised of a warm-up, breathing technique practice, lower and upper body aerobic endurance training, upper and lower body resistance training and lower body stretching/flexibility training as a cool down. Patient tolerated physician prescribed exercise workload. Vitals WNL for patient. This is a hospital based pulmonary rehab program. Patient working towards exercise goals by increasing exercise intensity. Patient working towards education goal by attending education sessions in pulmonary rehabilitation. Will educate on disease and symptom management as needed. The education topic provided to the patient today was reading food labels. The patient received this education by video, staff/patient discussion and receiving of an educational hand-out. Patient has verbalized understanding of education topic and the relation to disease managment. Patient's Daily Exercise Log will be scanned into [employer] once it is completed. These can be viewed by going under the ANDquot;scanned documentsANDquot; tab and looking for documents labeled ANDquot;Other respiratory therapy.ANDquot; Daily Exercise Logs contain exercise data such as, but not limited to modality, intensity, duration and frequency of exercise, along with vital signs pre-, during, and post-exercise. Refer to patient's paper medical record for pulse oximetry data, physician prescribed Individualized Treatment Plan, and education sessions covered. Total time of visit 80 minutes. Jessica Luciano RN Allergies As of Date: 01/14/2018 (No Known Allergies) Date Reviewed: 12/26/2017 Reviewed by: Chelly Mart Ma - Fully Assessed Prescriptions as of 01/14/2018 Sig: LEVOTHYROXINE 25 MCG TABLET Take 1 tablet by mouth once d* CALTRATE 600 + D ORAL Take by mouth. PRAVASTATIN 20 MG TABLET Take 1 tablet by mouth daily * AMLODIPINE 5 MG TABLET Take 1 tablet by mouth once d* PANTOPRAZOLE 40 MG TABLET,DEL* Take 1 tablet by mouth once d* ASPIRIN 81 MG TABLET,DELAYED * Take 1 tablet by mouth once d* PIRFENIDONE 267 MG CAPSULE Take three (3) capsules by mo* Problem List As Of Date 01/14/2018 Noted Resolved IPF (idiopathic pulmonary fibrosis) (HCC) [J84.*INVALID FOR* CKD (chronic kidney disease) [N18.9] INVALID FOR* Hoarse voice quality [R49.0] INVALID FOR* GERD (gastroesophageal reflux disease) [K21.9] INVALID FOR* HTN (hypertension) [I10] INVALID FOR*11/07/2016 Gammopathy, 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 BPH (benign prostatic hyperplasia) [N40.0] INVALID FOR* Family history of ischemic heart disease [Z82.4*INVALID FOR* Coronary artery disease involving tyonek dougherty*INVALID FOR* More... 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] INVALID FOR* Acute midline low back pain [M54.5] INVALID FOR* Chronic hypoxemic respiratory failure (HCC) [J9*INVALID FOR* Pulmonary infiltrate [R91.8] INVALID FOR* Abnormal weight loss [R63.4] INVALID FOR* Encounter Status:Closed by JESSICA LUCIANO on 01/14/18 PROGRESS Observed: 01/09/2018 Status: COMPLETED Source: [place] 11:47 AM [facility] OTHER CAMPUS REPOSITORY O ID: [id number] Author: Angel Han (Ex Phys) Deon Service: (none) Author Type: Dryer And Washer Mechanic Type: Progress Notes Filed: 01/09/2018 12:50 PM Note Text: [facility] Supervising Physician: Dr. Blair Diagnosis: IPF Phase: 2 Session Number: 14 Subjective Data: Patient reports I am feeling fine today, no unusual shortness of breath or chest discomfort. I am ready for exercise. Objective Data: Emergency room visits since your last visit. No Medication changes since last visit. No Today's exercise session was comprised of a warm-up, breathing technique practice, lower and upper body aerobic endurance training, upper and lower body resistance training and lower body stretching/flexibility training as a cool down. Patient tolerated physician prescribed exercise workload. Vitals WNL for patient. This is a hospital based pulmonary rehab program. Patient working towards exercise goals by sustaining exercise intensity and duration. Patient working towards education goal by attending education sessions in pulmonary rehabilitation. Will educate on disease and symptom management as needed. The education topic provided to the patient today was healthy eating for life. The patient received this education by video, staff/patient discussion and receiving of an educational hand-out. Patient has verbalized understanding of education topic and the relation to disease managment. Patient's Daily Exercise Log will be scanned into [employer] once it is completed. These can be viewed by going under the scanned documents tab and looking for documents labeled Other respiratory therapy. Daily Exercise Logs contain exercise data such as, but not limited to modality, intensity, duration and frequency of exercise, along with vital signs pre-, during, and post-exercise. Refer to patient's paper medical record for pulse oximetry data, physician prescribed Individualized Treatment Plan, and education sessions covered. Total time of visit 80 minutes. Hardik Arcos HOSP Observed: 01/09/2018 Status: COMPLETED Source: [place] 12:00 AM [facility] REPOSITORY Patient Update ([facility]) EVAN FLORES ([id number]) 1945 M Date Time Provider Department 01/09/18 ANGEL CHAVARRIA (EX PHYS) [facility] During your visit today, we recorded the following information about you: Hardik Arcos 01/09/2018 12:50 PM Signed [facility] Supervising Physician: Tejas Blair Diagnosis: IPF Phase: 2 Session Number: 14 Subjective Data: Patient reports ANDquot;I am feeling fine today, no unusual shortness of breath or chest discomfort. I am ready for exercise.AWAquot; Objective Data: Emergency room visits since your last visit. No Medication changes since last visit. No Today's exercise session was comprised of a warm-up, breathing technique practice, lower and upper body aerobic endurance training, upper and lower body resistance training and lower body stretching/flexibility training as a cool down. Patient tolerated physician prescribed exercise workload. Vitals WNL for patient. This is a hospital based pulmonary rehab program. Patient working towards exercise goals by sustaining exercise intensity and duration. Patient working towards education goal by attending education sessions in pulmonary rehabilitation. Will educate on disease and symptom management as needed. The education topic provided to the patient today was healthy eating for life. The patient received this education by video, staff/patient discussion and receiving of an educational hand- out. Patient has verbalized understanding of education topic and the relation to disease managment. Patient's Daily Exercise Log will be scanned into [employer] once it is completed. These can be viewed by going under the ANDquot;scanned documentsANDquot; tab and looking for documents labeled ANDquot;Other respiratory therapy.ANDquot; Daily Exercise Logs contain exercise data such as, but not limited to modality, intensity, duration and frequency of exercise, along with vital signs pre-, during, and post-exercise. Refer to patient's paper medical record for pulse oximetry data, physician prescribed Individualized Treatment Plan, and education sessions covered. Total time of visit 80 minutes. Angel Chavarria, Hardik Ovalle Allergies As of Date: 01/09/2018 (No Known Allergies) Date Reviewed: 12/26/2017 Reviewed by: Chelly Mart Ma - Fully Assessed Prescriptions as of 01/09/2018 Sig: LEVOTHYROXINE 25 MCG TABLET Take 1 tablet by mouth once d* CALTRATE 600 + D ORAL Take by mouth. PRAVASTATIN 20 MG TABLET Take 1 tablet by mouth daily * AMLODIPINE 5 MG TABLET Take 1 tablet by mouth once d* PANTOPRAZOLE 40 MG TABLET,DEL* Take 1 tablet by mouth once d* ASPIRIN 81 MG TABLET,DELAYED * Take 1 tablet by mouth once d* PIRFENIDONE 267 MG CAPSULE Take three (3) capsules by mo* Problem List As Of Date 01/09/2018 Noted Resolved IPF (idiopathic pulmonary fibrosis) (HCC) [J84.*INVALID FOR* CKD (chronic kidney disease) [N18.9] INVALID FOR* Hoarse voice quality [R49.0] INVALID FOR* GERD (gastroesophageal reflux disease) [K21.9] INVALID FOR* HTN (hypertension) [I10] INVALID FOR*11/07/2016 Gammopathy, 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 BPH (benign prostatic hyperplasia) [N40.0] INVALID FOR* Family history of ischemic heart disease [Z82.4*INVALID FOR* Coronary artery disease involving tyonek dougherty*INVALID FOR* More... 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] INVALID FOR* Acute midline low back pain [M54.5] INVALID FOR* Chronic hypoxemic respiratory failure (HCC) [J9*INVALID FOR* Pulmonary infiltrate [R91.8] INVALID FOR* Abnormal weight loss [R63.4] INVALID FOR* Encounter Status:Closed by ANGEL CHAVARRIA on 01/09/18 PROGRESS Observed: 01/07/2018 Status: COMPLETED Source: [place] 11:31 AM [facility] OTHER [facility] REPOSITORY HNO ID: [id number] Author: Angel Han (Ex Phys) Deon Service: (none) 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 Blair Diagnosis: IPF Phase: 2 Session Number: 13 Subjective Data: Patient reports I am feeling fine today, no unusual shortness of breath or chest discomfort. I am ready for exercise. Objective Data: Emergency room visits since your last visit. No Medication changes since last visit. No Today's exercise session was comprised of a warm-up, breathing technique practice, lower and upper body aerobic endurance training, upper and lower body resistance training and lower body stretching/flexibility training as a cool down. Patient tolerated physician prescribed exercise workload. Vitals WNL for patient. This is a hospital based pulmonary rehab program. Patient working towards exercise goals by increasing exercise duration. Patient working towards education goal by attending education sessions in pulmonary rehabilitation. Will educate on disease and symptom management as needed. The education topic provided to the patient today was energy conservation. The patient received this education by video, staff/patient discussion and receiving of an educational hand-out. Patient has verbalized understanding of education topic and the relation to disease managment. Patient's Daily Exercise Log will be scanned into [employer] once it is completed. These can be viewed by going under the scanned documents tab and looking for documents labeled Other respiratory therapy. Daily Exercise Logs contain exercise data such as, but not limited to modality, intensity, duration and frequency of exercise, along with vital signs pre-, during, and post-exercise. Refer to patient's paper medical record for pulse oximetry data, physician prescribed Individualized Treatment Plan, and education sessions covered. Total time of visit 80 minutes. Hardik Arcos HOSP Observed: 01/07/2018 Status: COMPLETED Source: [place] 12:00 AM [facility] REPOSITORY Patient Update ([facility]) EVAN FLORES ([id number]) 1945 M Date Time Provider Department 01/07/18 ANGEL CHAVARRIA (EX PHYS) [facility] During your visit today, we recorded the following information about you: Hardik Arcos Jennay 01/07/2018 12:28 PM Signed [facility] Supervising Physician: Tejas Blair Diagnosis: IPF Phase: 2 Session Number: 13 Subjective Data: Patient reports ANDquot;I am feeling fine today, no unusual shortness of breath or chest discomfort. I am ready for exercise.ANDquot; Objective Data: Emergency room visits since your last visit. No Medication changes since last visit. No Today's exercise session was comprised of a warm-up, breathing technique practice, lower and upper body aerobic endurance training, upper and lower body resistance training and lower body stretching/flexibility training as a cool down. Patient tolerated physician prescribed exercise workload. Vitals WNL for patient. This is a hospital based pulmonary rehab program. Patient working towards exercise goals by increasing exercise duration. Patient working towards education goal by attending education sessions in pulmonary rehabilitation. Will educate on disease and symptom management as needed. The education topic provided to the patient today was energy conservation. The patient received this education by video, staff/patient discussion and receiving of an educational hand-out. Patient has verbalized understanding of education topic and the relation to disease managment. Patient's Daily Exercise Log will be scanned into [employer] once it is completed. These can be viewed by going under the ANDquot;scanned documentsANDquot; tab and looking for documents labeled ANDquot;Other respiratory therapy.ANDquot; Daily Exercise Logs contain exercise data such as, but not limited to modality, intensity, duration and frequency of exercise, along with vital signs pre-, during, and post-exercise. Refer to patient's paper medical record for pulse oximetry data, physician prescribed Individualized Treatment Plan, and education sessions covered. Total time of visit 80 minutes. Angel Chavarria, Hardik Ovalle Allergies As of Date: 01/07/2018 (No Known Allergies) Date Reviewed: 12/26/2017 Reviewed by: Chelly Mart Ma - Fully Assessed Prescriptions as of 01/07/2018 Sig: LEVOTHYROXINE 25 MCG TABLET Take 1 tablet by mouth once d* CALTRATE 600 + D ORAL Take by mouth. PRAVASTATIN 20 MG TABLET Take 1 tablet by mouth daily * AMLODIPINE 5 MG TABLET Take 1 tablet by mouth once d* PANTOPRAZOLE 40 MG TABLET,DEL* Take 1 tablet by mouth once d* ASPIRIN 81 MG TABLET,DELAYED * Take 1 tablet by mouth once d* PIRFENIDONE 267 MG CAPSULE Take three (3) capsules by mo* Problem List As Of Date 01/07/2018 Noted Resolved IPF (idiopathic pulmonary fibrosis) (HCC) [J84.*INVALID FOR* CKD (chronic kidney disease) [N18.9] INVALID FOR* Hoarse voice quality [R49.0] INVALID FOR* GERD (gastroesophageal reflux disease) [K21.9] INVALID FOR* HTN (hypertension) [I10] INVALID FOR*11/07/2016 Gammopathy, 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 BPH (benign prostatic hyperplasia) [N40.0] INVALID FOR* Family history of ischemic heart disease [Z82.4*INVALID FOR* Coronary artery disease involving tyonek dougherty*INVALID FOR* More... 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] INVALID FOR* Acute midline low back pain [M54.5] INVALID FOR* Chronic hypoxemic respiratory failure (HCC) [J9*INVALID FOR* Pulmonary infiltrate [R91.8] INVALID FOR* Abnormal weight loss [R63.4] INVALID FOR* Encounter Status:Closed by ANGEL CHAVARRIA on 01/07/18 US KIDNEY/BLADDER Observed: 01/06/2018 Status: F Source: [place] 10:40 AM [facility] [place] REPOSITORY * * *Final Report* * * DATE OF EXAM: Jan 06 2018 10:40AM [facility] [id number] - US KIDNEY/BLADDER / PROCEDURE REASON: Chronic kidney disease, stage 3 (moderate) * * * * Physician Interpretation * * * * EXAMINATION: RENAL ULTRASOUND HISTORY: CKD stage III TECHNIQUE: Sonography of the kidneys and urinary bladder was performed. Images were obtained and stored in a permanent archive. MQ: UR_1 COMPARISON: None RESULT: Right Kidney: -Renal length: 8.3 cm -Parenchyma: Parenchyma echogenicity is increased. Diffuse parenchymal thinning present. -Collecting system: No hydronephrosis. -Calculus: No echogenic, shadowing calculus. -Lesion: None. Left Kidney: -Renal length: 13.1 cm -Parenchyma: Normal parenchymal echogenicity. Normal parenchymal thickness. -Collecting system: No hydronephrosis. -Calculus: No echogenic, shadowing calculus. -Lesion: None. Bladder: Normal sonographic appearance. Prevoid bladder volume = 223 cc Postvoid bladder volume = 29 cc IMPRESSION: DECREASED RIGHT RENAL SIZE WITH CORTICAL THINNING AND INCREASED ECHOGENICITY NORMAL LEFT RENAL SIZE AND CORTICAL THICKNESS NO HYDRONEPHROSIS SMALL POST VOID RESIDUAL Hairspring Ii Inspector: PSCB Transcribe Date/Time: Jan 06 2018 4:33P Dictated by : LILIAN CUEVAS MD This examination was interpreted and the report reviewed and electronically signed by: LILIAN CUEVAS MD on Jan 06 2018 4:35PM EST [id number] PROGRESS Observed: 01/06/2018 Status: COMPLETED Source: [place] 9:57 AM [facility] [place] [facility] REPOSITORY HNO ID: [id number] Author: Vannesa Stratton Rdms Service: (none) Author Type: (none) Type: Progress Notes Filed: 01/06/2018 10:41 AM Note Text: Radiology Service Progress Note PATIENT NAME: Evan Flores DATE OF SERVICE: January 06, 2018 TIME: 9:57 AM PATIENT IDENTITY VERIFICATION COMPLETED USING TWO (2) METHODS: Patient confirmed name verbally and Date of . 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 Blair Diagnosis: IPF Phase: 2 Session Number: 12 Subjective Data: Patient reports I am feeling fine today, no unusual shortness of breath or chest discomfort. I am ready for exercise. Objective Data: Emergency room visits since your last visit. No Medication changes since last visit. No Today's exercise session was comprised of a warm-up, breathing technique practice, lower and upper body aerobic endurance training, upper and lower body resistance training and lower body stretching/flexibility training as a cool down. Patient tolerated physician prescribed exercise workload. Vitals WNL for patient. This is a hospital based pulmonary rehab program. Patient working towards exercise goals by sustaining exercise intensity and duration. Patient working towards education goal by attending education sessions in pulmonary rehabilitation. Will educate on disease and symptom management as needed. The education topic provided to the patient today was components of exercise. The patient received this education by video, staff/patient discussion and receiving of an educational hand-out. Patient has verbalized understanding of education topic and the relation to disease managment. Patient's Daily Exercise Log will be scanned into [employer] once it is completed. These can be viewed by going under the scanned documents tab and looking for documents labeled Other respiratory therapy. Daily Exercise Logs contain exercise data such as, but not limited to modality, intensity, duration and frequency of exercise, along with vital signs pre-, during, and post-exercise. Refer to patient's paper medical record for pulse oximetry data, physician prescribed Individualized Treatment Plan, and education sessions covered. Total time of visit 80 minutes. Angel Chavarria, Ex Phy HOSP Observed: 01/02/2018 Status: COMPLETED Source: [place] 12:00 AM [facility] OTHER [place] REPOSITORY Patient Update ([facility]) EVAN FLORES ([id number]) 1945 M Date Time Provider Department 01/02/18 FREIDAANGEL DUMONT Emely (EX PHYS) [facility] During your visit today, we recorded the following information about you: Hardik Arcos Phy 01/02/2018 1:05 PM Signed [facility] Supervising Physician: Tejas Blair Diagnosis: IPF Phase: 2 Session Number: 12 Subjective Data: Patient reports ANDquot;I am feeling fine today, no unusual shortness of breath or chest discomfort. I am ready for exercise.ANDquot; Objective Data: Emergency room visits since your last visit. No Medication changes since last visit. No Today's exercise session was comprised of a warm-up, breathing technique practice, lower and upper body aerobic endurance training, upper and lower body resistance training and lower body stretching/flexibility training as a cool down. Patient tolerated physician prescribed exercise workload. Vitals WNL for patient. This is a hospital based pulmonary rehab program. Patient working towards exercise goals by sustaining exercise intensity and duration. Patient working towards education goal by attending education sessions in pulmonary rehabilitation. Will educate on disease and symptom management as needed. The education topic provided to the patient today was components of exercise. The patient received this education by video, staff/patient discussion and receiving of an educational hand- out. Patient has verbalized understanding of education topic and the relation to disease managment. Patient's Daily Exercise Log will be scanned into [employer] once it is completed. These can be viewed by going under the ANDquot;scanned documentsANDquot; tab and looking for documents labeled ANDquot;Other respiratory therapy.ANDquot; Daily Exercise Logs contain exercise data such as, but not limited to modality, intensity, duration and frequency of exercise, along with vital signs pre-, during, and post-exercise. Refer to patient's paper medical record for pulse oximetry data, physician prescribed Individualized Treatment Plan, and education sessions covered. Total time of visit 80 minutes. Angel Chavarria, Ex Phy Allergies As of Date: 01/02/2018 (No Known Allergies) Date Reviewed: 12/26/2017 Reviewed by: Chelly Mart Ma - Fully Assessed Prescriptions as of 01/02/2018 Sig: LEVOTHYROXINE 25 MCG TABLET Take 1 tablet by mouth once d* CALTRATE 600 + D ORAL Take by mouth. PRAVASTATIN 20 MG TABLET Take 1 tablet by mouth daily * AMLODIPINE 5 MG TABLET Take 1 tablet by mouth once d* PANTOPRAZOLE 40 MG TABLET,DEL* Take 1 tablet by mouth once d* ASPIRIN 81 MG TABLET,DELAYED * Take 1 tablet by mouth once d* PIRFENIDONE 267 MG CAPSULE Take three (3) capsules by mo* Problem List As Of Date 01/02/2018 Noted Resolved IPF (idiopathic pulmonary fibrosis) (HCC) [J84.*INVALID FOR* CKD (chronic kidney disease) [N18.9] INVALID FOR* Hoarse voice quality [R49.0] INVALID FOR* GERD (gastroesophageal reflux disease) [K21.9] INVALID FOR* HTN (hypertension) [I10] INVALID FOR*11/07/2016 Gammopathy, 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 BPH (benign prostatic hyperplasia) [N40.0] INVALID FOR* Family history of ischemic heart disease [Z82.4*INVALID FOR* Coronary artery disease involving tyonek dougherty*INVALID FOR* More... 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] INVALID FOR* Acute midline low back pain [M54.5] INVALID FOR* Chronic hypoxemic respiratory failure (HCC) [J9*INVALID FOR* Pulmonary infiltrate [R91.8] INVALID FOR* Abnormal weight loss [R63.4] INVALID FOR* Encounter Status:Closed by ANGEL CHAVARRIA on 01/02/18 PROGRESS Observed: 12/31/2017 Status: COMPLETED Source: [place] 11:20 AM CLINIC OTHER CAMPUS REPOSITORY O ID: [id number] Author: Angel Han (Ex Phys) Deon Service: (none) Author Type: Dryer And Washer Mechanic Type: Progress Notes Filed: 12/31/2017 12:31 PM Note Text: [facility] Supervising Physician: Dr. Blair Diagnosis: IPF Phase: 2 Session Number: 11 Subjective Data: Patient reports I am feeling fine today, no unusual shortness of breath or chest discomfort. I am ready for exercise. Objective Data: Emergency room visits since your last visit. No Medication changes since last visit. No Today's exercise session was comprised of a warm-up, breathing technique practice, lower and upper body aerobic endurance training, upper and lower body resistance training and lower body stretching/flexibility training as a cool down. Patient tolerated physician prescribed exercise workload. Vitals WNL for patient. This is a hospital based pulmonary rehab program. Patient working towards exercise goals by increasing exercise intensity and duration. Patient working towards education goal by attending education sessions in pulmonary rehabilitation. Will educate on disease and symptom management as needed. The education topic provided to the patient today was CPAP/BiPAP. The patient received this education by video, staff/patient discussion and receiving of an educational hand-out. Patient has verbalized understanding of education topic and the relation to disease managment. Patient's Daily Exercise Log will be scanned into [employer] once it is completed. These can be viewed by going under the scanned documents tab and looking for documents labeled Other respiratory therapy. Daily Exercise Logs contain exercise data such as, but not limited to modality, intensity, duration and frequency of exercise, along with vital signs pre-, during, and post-exercise. Refer to patient's paper medical record for pulse oximetry data, physician prescribed Individualized Treatment Plan, and education sessions covered. Total time of visit 80 minutes. Angel Chavarria, Hardik Phy HOSP Observed: 12/31/2017 Status: COMPLETED Source: [place] 12:00 AM [facility] OTHER [place] REPOSITORY Patient Update ([facility]) EVAN FLORES ([id number]) 1945 M Date Time Provider Department 4/3/18 ANGEL CHAVARRIA (EX PHYS) CDPLM During your visit today, we recorded the following information about you: Hardik Arcos Jennatiesha 12/31/2017 12:31 PM Signed [facility] Supervising Physician: Moises;Dr. Blair Diagnosis: IPF Phase: 2 Session Number: 11 Subjective Data: Patient reports ANDquot;I am feeling fine today, no unusual shortness of breath or chest discomfort. I am ready for exercise.ANDquot; Objective Data: Emergency room visits since your last visit. No Medication changes since last visit. No Today's exercise session was comprised of a warm-up, breathing technique practice, lower and upper body aerobic endurance training, upper and lower body resistance training and lower body stretching/flexibility training as a cool down. Patient tolerated physician prescribed exercise workload. Vitals WNL for patient. This is a hospital based pulmonary rehab program. Patient working towards exercise goals by increasing exercise intensity and duration. Patient working towards education goal by attending education sessions in pulmonary rehabilitation. Will educate on disease and symptom management as needed. The education topic provided to the patient today was CPAP/BiPAP. The patient received this education by video, staff/patient discussion and receiving of an educational hand-out. Patient has verbalized understanding of education topic and the relation to disease managment. Patient's Daily Exercise Log will be scanned into [employer] once it is completed. These can be viewed by going under the ANDquot;scanned documentsANDquot; tab and looking for documents labeled ANDquot;Other respiratory therapy.ANDquot; Daily Exercise Logs contain exercise data such as, but not limited to modality, intensity, duration and frequency of exercise, along with vital signs pre-, during, and post-exercise. Refer to patient's paper medical record for pulse oximetry data, physician prescribed Individualized Treatment Plan, and education sessions covered. Total time of visit 80 minutes. Angel GibbsHardik dumont Allergies As of Date: 12/31/2017 (No Known Allergies) Date Reviewed: 12/26/2017 Reviewed by: Chelly Mart Ma - Fully Assessed Prescriptions as of 12/31/2017 Sig: LEVOTHYROXINE 25 MCG TABLET Take 1 tablet by mouth once d* CALTRATE 600 + D ORAL Take by mouth. PRAVASTATIN 20 MG TABLET Take 1 tablet by mouth daily * AMLODIPINE 5 MG TABLET Take 1 tablet by mouth once d* PANTOPRAZOLE 40 MG TABLET,DEL* Take 1 tablet by mouth once d* ASPIRIN 81 MG TABLET,DELAYED * Take 1 tablet by mouth once d* PIRFENIDONE 267 MG CAPSULE Take three (3) capsules by mo* Problem List As Of Date 12/31/2017 Noted Resolved IPF (idiopathic pulmonary fibrosis) (HCC) [J84.*INVALID FOR* CKD (chronic kidney disease) [N18.9] INVALID FOR* Hoarse voice quality [R49.0] INVALID FOR* GERD (gastroesophageal reflux disease) [K21.9] INVALID FOR* HTN (hypertension) [I10] INVALID FOR*11/07/2016 Gammopathy, 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 BPH (benign prostatic hyperplasia) [N40.0] INVALID FOR* Family history of ischemic heart disease [Z82.4*INVALID FOR* Coronary artery disease involving tyonek dougherty*INVALID FOR* More... 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] INVALID FOR* Acute midline low back pain [M54.5] INVALID FOR* Chronic hypoxemic respiratory failure (HCC) [J9*INVALID FOR* Pulmonary infiltrate [R91.8] INVALID FOR* Abnormal weight loss [R63.4] INVALID FOR* Encounter Status:Closed by ANGEL CHAVARRIA on 12/31/17 BASIC METABOLIC PANL Collected: 12/27/2017 Status: F Source: [place] 9:32 AM [facility] [place] REPOSITORY TYPE CODE TESTS RESULT OUT OF REFERENCE UNITS RANGE LAB GLU 74-99 mg/dL High Glucose 156 Result Comment: The [place] [employer] (ADA) provides guidance for cutoff values for fasting glucose and random glucose. The ADA defines fasting as no caloric intake for at least 8 hours. Fas ting plasma glucose results between 100 to 125 mg/dL indicate increased risk for diabetes (prediabetes). Fasting plasma glucose results greater than or equal to 126 mg/dL meet the criteria for diagnosis of diabetes. In the absence of unequivocal hyperglycemia, results should be confirmed by repeat testing. In a patient with classic symptoms of hyperglycemia or hyperglycemic crisis, random plasma glucose results greater than or equal to 200 mg/dL meet the criteria for diagnosis of diabetes. Reference: Standards of Medical Care in Diabetes 2016, [place] [employer]. Diabetes Care. 2016.39(Suppl 1). LAB BUN 9-24 mg/dL BUN 13 LAB CRET 0.73-1.22 mg/dL Creatinine High 1.28 LAB NA 136-144 mmol/L Sodium 141 LAB K 3.7-5.1 mmol/L Potassium 4.2 LAB CL 97-105 mmol/L Chloride 100 LAB CO2 22-30 mmol/L CO2 30 LAB AGAP 9-18 mmol/L Anion Gap 11 LAB CA 8.5-10.2 mg/dL Calcium, Total 9.3 LAB GFRAA eGFR- Amer. >60 LAB GFRNAA . eGFR-All Other Races 55 Result Comment: eGFR (Estimated GFR) Units of measure: mL/min/1.73 meters squared eGFR is derived from the reexpressed MDRD Study equation using the following parameters: serum creatinine, age, gender and race. The creatinine assay has been calibrated to be traceable to IDMS. An eGFR <60 mL/min/1.73m2 for >3 months is consistent with chronic kidney disease. Refer to KDOQI guidelines for clinical interpretation. In patients with unstable renal function, e.g. those with acute kidney injury, the eGFR may not accurately reflect actual GFR. Performed By: #### BMP, TSH, FT4, T3 #### [facility] [address] [place], [place] [address] TSH Collected: 12/27/2017 Status: F Source: [place] 9:32 AM [facility] [place] REPOSITORY TYPE CODE TESTS RESULT OUT OF RANGE REFERENCE UNITS LAB TSH 0.400-5.500 uU/mL High TSH 6.830 Performed By: #### BMP, TSH, FT4, T3 #### [facility] [address] [place], [place] [address] FREE T4 Collected: 12/27/2017 Status: F Source: [place] 9:32 AM [facility] [place] REPOSITORY TYPE CODE TESTS RESULT OUT OF RANGE REFERENCE UNITS LAB FT4 0.9-1.7 ng/dL Low Free T4 0.8 Performed By: #### BMP, TSH, FT4, T3 #### [facility] [address] [place], [place] [address] T3 Collected: 12/27/2017 Status: F Source: [facility] 9:32 AM [facility] REPOSITORY TYPE CODE TESTS RESULT OUT OF RANGE REFERENCE UNITS LAB T3 79-165 ng/dL T3 118 Performed By: #### BMP, TSH, FT4, T3 #### [facility] [address] [place], [place] [address] CNOV Observed: 12/26/2017 Status: COMPLETED Source: [place] 3:10 PM [facility] [place] REPOSITORY Office Visit ([facility]) EVAN FLORES ([id number]) 1945 M Date Time Provider Department 12/26/17 3:10 PM MICHELLE HERNANDEZ (NAKITA) VENKATESH During your visit today, we recorded the following information about you: Temperature Pulse Blood pressure Weight 97.9 degrees 86/minute 134/75 77.1 kg Height 1.829 m Michelle Hernandez APRN.CNP 12/26/2017 3:28 PM Signed OSTEOPOROSIS AND METABOLIC BONE DISEASE /MALE HISTORY and PHYSICAL Gender: male Ethnicity: Age: [age] year old Chief Complaint: Evaluation for osteoporosis TREATMENTS: Medications: None Calcium: Supplement: Dose: 600 mg/twice a day - started that around sep 2017 and Diet, 680 mg/day Multivitamin: No Vitamin D Intake: 800 units in caltrate with D OSTEOPOROSIS RISK FACTORS Weight ANDlt;127 lbs: No Height: loss: Yes: 1 1/2 inches lost since age 39 Previous Fragility Fractures: vertebral fractures, most recent was T12 and L2 noted on mri in sep 2017- there was no trauma prior to this. he also has compression deformities involving L1, L3, L5. he saw spine. he also reports a history of remote rib fracture. Family History of Osteoporosis: No Family History of Fragility Fractures: None History of parental hip fracture: No Fall History: No MEDICATION RISK FACTORS: a few courses of prednisone in the past for his lungs- not routine use. he also had some steroid tapers for his back pain. Social history: Caffeine: 1-3 c/day Smoking History: Never smoked Alcohol Consumption: about 2 drinks per week Exercise: pulmonary rehab and walking INTERVAL HISTORY: He is here for his first prolia injection. No falls or fractures since [place]. No invasive dental work in the last three months and none planned for the next three months. He reports following with a dentist at least every six months. Last dental exam was 09/2017 and everything was fine per patient. No jaw or thigh pain. No recent infections. REVIEW OF SYSTEMS GENERAL: No weight loss, malaise or fevers HEENT: Negative for frequent or significant headaches, No changes in hearing or vision, no nose bleeds or other nasal problems NECK: Negative for lumps, goiter, pain and significant neck swelling CARDIOVASCULAR: Negative for chest pain, leg swelling, hypertension, CHF or palpitations GI: No nausea, vomiting, or diarrhea : No history of dysuria, frequency or incontinence SKIN: Negative for lesions, rash, and itching HEMATOLOGY/LYMPHOLOGY: Negative for prolonged bleeding, bruising easily or swollen nodes RESP: + hx of COPD, + SOB-wears O2, +cough with clear sputum NEURO: + intermittent numbness and tingling to feet Heartburn: Yes. 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 - GERD (gastroesophageal reflux disease) - HTN (hypertension) - Hyperglycemia - IPF (idiopathic pulmonary fibrosis) (HCC) diagnosed December 2013 - Renal insufficiency PAST SURGICAL HISTORY Procedure Laterality Date - INGUINAL HERNIA REPAIR HX Right - LUNG BIOPSY HX 03/2014 - PAST SURGICAL HISTORY OF cardiac stent x 1 Family History: FAMILY HISTORY Problem Relation Age of Onset - Diabetes Mother - Hypertension Mother - Heart Mother heart failure - pulmonary fibrosis [OTHER] Mother sister as well - Hypertension Father - Seizures Father - COPD Father - pulmonary fibosis [OTHER] Sister lung disease,lung transplant - Heart Brother [place], s/p stent - Lung Disease [OTHER] Brother Allergies: Review of patient's allergies indicates no known allergies. Current Outpatient Prescriptions: CALCIUM CARBONATE/VITAMIN D3 (CALTRATE 600 + D ORAL) Take by mouth. pravastatin (PRAVACHOL) 20 mg tablet Take 1 tablet by mouth daily at bedtime. amLODIPine (NORVASC) 5 mg tablet Take 1 tablet by mouth once daily. pantoprazole DR (PROTONIX) 40 mg tablet Take 1 tablet by mouth once daily. aspirin, enteric coated (ECOTRIN LOW STRENGTH) 81 mg EC tablet Take 1 tablet by mouth once daily. pirfenidone (ESBRIET) 267 mg capsule Take three (3) capsules by mouth three (3) times daily. No current facility-administered medications for this visit. Physical Exam: BP 134/75 Pulse 86 Temp 36.6 ?C (97.9 ?F) (Oral) Ht 182.9 cm (6') Wt 77.1 kg (170 lb) BMI 23.06 kg/m2 GEN: NAD, well groomed. on O2 EYES: conjunctiva and sclera normal. EARS: External ears normal. NOSE/SINUS: Nares normal. Septum midline. Mucosa normal. No drainage or sinus tenderness. THROAT: Normal and no erythema. ORAL: unremarkable NECK: Neck supple, no adenopathy; no thyromegaly HEART: RRR, no murmurs LUNGS: Clear to auscultation. good respiratory effort LYMPH NODES: No cervical lymphadenopathy and no supraclavicular lymphadenopathy. ABDOMEN: Bowel sounds normoactive, no bruits; soft, nontender, without organomegaly or palpable masses. NEURO: Awake, alert and oriented x 3, slow gait and no involuntary motions. SKIN: Skin color, texture, turgor normal. No rash. MSK: Swollen joints none Tender joints none Examination of Back: Profile -Dorsal kyphosis TS: mild -No point tenderness to palpation of spine Labs reviewed and discussed with the patient: Component Latest Ref Rng ANDamp; Units 12/04/2017 Creatinine 0.73 - 1.22 mg/dL 1.24 (H) eGFR- ANDgt;60 eGFR-All Other Races . 57 Calcium 8.5 - 10.2 mg/dL 9.3 Cross-Link N-telopeptide 21.9 - 75.0 nM/mM Creat 35.8 PTH, Intact 15 - 65 pg/mL 37 TSH 0.400 - 5.500 uU/mL 7.500 (H) Vitamin D 25 Hydroxy 31.0 - 80.0 ng/mL 33.9 BONE DENSITY RESULTS: DATE OF EXAM: Oct 28 2017 ?8:44AM ? WRB ? 0870 ?- ?BD DXA - FOREARM SKELETON ?- LEFT / PROCEDURE REASON: closed compression fracture of second lumbar vertebra ?? ? * * * * Physician Interpretation * * * * ?PROCEDURE: ?BD DXA - AXIAL SKELETON, BD DXA - FOREARM SKELETON INDICATION: Wedge compression fracture of second lumbar vertebra, initial encounter for closed fracture Wedge compression fracture of unspecified thoracic vertebra, initial encounter for closed fracture Low back pain TECHNIQUE: Low dose AP left forearm and hip images COMPARISON: LEFT HIP: ?The bone mineral density of the total region of the hip is 1.026 grams per square centimeter which yields a T-score of 0.0. ? ?. LEFT FEMORAL NECK: ?The bone mineral density of the femoral neck is 0.849 grams per square centimeter which yields a T-score of -0.6. ? ?. RIGHT HIP: ? The bone mineral density of the total region of the hip is 1.048 grams per square centimeter which yields a T-score of 0.1. ? ?. RIGHT FEMORAL NECK: ?The bone mineral density of the femoral neck is 0.894 grams per square centimeter which yields a T-score of -0.3. ? ?. LEFT FOREARM: ?The bone mineral density of the radius 1/3 is 0.751 grams per square centimeter which yields a T-score of -1.2 . ? ? mri 10/01/17 IMPRESSION: Interval development of acute/subacute compression deformities at T12 and L2 compared to 06/10/2017. ?No significant bony retropulsion or canal stenosis. Multilevel remote compression deformities involving L1, L3, L5, not significantly changed from 06/10/2017. Multilevel degenerative changes, worst at L3-L4 and L4-L5. IMPRESSION: Osteoporosis on the basis of compression fractures. His lowest T score is in his forearm and is -1.2 History of vitamin D deficiency Monoclonal gammopathy- follows with hematology Pulmonary Fibrosis- follows with pulmonary History of renal insufficiency- though his most recent GFR is ANDgt;60 PLAN: Calcium 1200 to 1500 mg daily recommended- if cannot achieve this through diet, then calcium citrate supplement recommended. He gets about 680 mg of calcium in his diet daily. Thus, he will Continue calcium and vitamin D Will give prolia #1 today. R/b/a discussed. Fall/infection precautions. He was advised to f/u with his pcp for elevated creatinine and PTH. Routine dental visits advised. Weight bearing exercise as tolerated recommended Will check labs in 5 months. Repeat bmd on same machine as prior 2 years from last bmd (around oct 2019) recommended Continued f/u with PCP for routine health maintenance advised. rba of meds discussed. RTC in [address] Zaid Hernandez APRN.NAKITA Hernandez APRN.CNP 12/26/2017 3:18 PM Addendum Please have blood work done around 05/28/18. Call and schedule follow up with Dr. Mar for 6 months from now. Krys Mra MD 12/26/2017 5:43 PM Signed Addended by: KRYS MAR MD on: 12/26/2017 05:43 PM Modules accepted: Orders Referring Provider: KRYS MAR [[id number]] Allergies As of Date: 12/26/2017 (No Known Allergies) Date Reviewed: 12/26/2017 Reviewed by: Chelly Mart Ma - Fully Assessed Reason for Visit: Established Patient [175] Primary Visit Diagnosis:Senile osteoporosis [M81.0] Other Visit Diagnosis:Encounter for long-term (current) use of medications [Z79.899] Order(s):VITAMIN D 25 HYDROXY [SQVITD] Order #: [id number] FUTURE CROSS-LINK N-TELOPEP [SQUNTX2] Order #: [id number] FUTURE CREATININE BLD [SQCRET] Order #: [id number] FUTURE denosumab (PROLIA) 60 mg/mL syrgInject 1 mL subcutaneously one time only for 1 dose.Disp: 1 mLRfl: 0 CALCIUM TOTAL BLD [SQCA] Order #: [id number] FUTURE Prescriptions as of 12/26/2017 Sig: CALTRATE 600 + D ORAL Take by mouth. PRAVASTATIN 20 MG TABLET Take 1 tablet by mouth daily * AMLODIPINE 5 MG TABLET Take 1 tablet by mouth once d* PANTOPRAZOLE 40 MG TABLET,DEL* Take 1 tablet by mouth once d* ASPIRIN 81 MG TABLET,DELAYED * Take 1 tablet by mouth once d* PIRFENIDONE 267 MG CAPSULE Take three (3) capsules by mo* DENOSUMAB 60 MG/ML SUBCUTANEO* Inject 1 mL subcutaneously on* Problem List As Of Date 12/26/2017 Noted Resolved IPF (idiopathic pulmonary fibrosis) (HCC) [J84.*INVALID FOR* CKD (chronic kidney disease) [N18.9] INVALID FOR* Hoarse voice quality [R49.0] INVALID FOR* GERD (gastroesophageal reflux disease) [K21.9] INVALID FOR* HTN (hypertension) [I10] INVALID FOR*11/07/2016 Gammopathy, 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 BPH (benign prostatic hyperplasia) [N40.0] INVALID FOR* Family history of ischemic heart disease [Z82.4*INVALID FOR* Coronary artery disease involving tyonek dougherty*INVALID FOR* More... 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 Call and schedule follow up with Dr. Mar for 6 months from now. Prescriptions ordered this encounter Disp Refills Start End DENOSUMAB 60 MG/ML SUBCUTANEOUS SYRI* 1 mL 0 12/26/2017 12/26/2017 Class: In Office Route: SUBCUTANEOUS Sig: Inject 1 mL subcutaneously one time only for 1 dose. Disposition: Return in about 6 months (around 06/28/2018). 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 Blair Diagnosis: IPF Phase: 2 Session Number: 10 Subjective Data: Patient reports I am feeling fine today, no unusual shortness of breath or chest discomfort. I am ready for exercise. Objective Data: Emergency room visits since your last visit. No Medication changes since last visit. No Today's exercise session was comprised of a warm-up, breathing technique practice, lower and upper body aerobic endurance training, upper and lower body resistance training and lower body stretching/flexibility training as a cool down. Patient tolerated physician prescribed exercise workload. Vitals WNL for patient. This is a hospital based pulmonary rehab program. Patient working towards exercise goals by sustaining exercise intensity and duration. Patient working towards education goal by attending education sessions in pulmonary rehabilitation. Will educate on disease and symptom management as needed. The education topic provided to the patient today was Smoking cessation. The patient received this education by video, staff/patient discussion and receiving of an educational hand-out. Patient has verbalized understanding of education topic and the relation to disease managment. Patient's Daily Exercise Log will be scanned into [employer] once it is completed. These can be viewed by going under the scanned documents tab and looking for documents labeled Other respiratory therapy. Daily Exercise Logs contain exercise data such as, but not limited to modality, intensity, duration and frequency of exercise, along with vital signs pre-, during, and post-exercise. Refer to patient's paper medical record for pulse oximetry data, physician prescribed Individualized Treatment Plan, and education sessions covered. Total time of visit 80 minutes. Hardik Arcos [facility]OS[facility] Observed: 12/26/2017 Status: COMPLETED Source: [place] 12:00 AM [facility] OTHER [place] REPOS[facility] Patient Update ([facility] EVAN FLORES ([id number]) 1945 M Date Time Provider Department 12/26/17 ANGEL CHAVARRIA (EX PHYS) [facility] During your visit today, we recorded the following information about you: Hardik Arcos 12/26/2017 12:30 PM Signed [facility] Supervising Physician: Tejas Blair Diagnosis: IPF Phase: 2 Session Number: 10 Subjective Data: Patient reports ANDquot;I am feeling fine today, no unusual shortness of breath or chest discomfort. I am ready for exercise.ANDquot; Objective Data: Emergency room visits since your last visit. No Medication changes since last visit. No Today's exercise session was comprised of a warm-up, breathing technique practice, lower and upper body aerobic endurance training, upper and lower body resistance training and lower body stretching/flexibility training as a cool down. Patient tolerated physician prescribed exercise workload. Vitals WNL for patient. This is a hospital based pulmonary rehab program. Patient working towards exercise goals by sustaining exercise intensity and duration. Patient working towards education goal by attending education sessions in pulmonary rehabilitation. Will educate on disease and symptom management as needed. The education topic provided to the patient today was Smoking cessation. The patient received this education by video, staff/patient discussion and receiving of an educational hand-out. Patient has verbalized understanding of education topic and the relation to disease managment. Patient's Daily Exercise Log will be scanned into [employer] once it is completed. These can be viewed by going under the ANDquot;scanned documentsANDquot; tab and looking for documents labeled ANDquot;Other respiratory therapy.ANDquot; Daily Exercise Logs contain exercise data such as, but not limited to modality, intensity, duration and frequency of exercise, along with vital signs pre-, during, and post-exercise. Refer to patient's paper medical record for pulse oximetry data, physician prescribed Individualized Treatment Plan, and education sessions covered. Total time of visit 80 minutes. Angel Chavarria, Hardik Ovalle Allergies As of Date: 12/26/2017 (No Known Allergies) Date Reviewed: 11/29/2017 Reviewed by: Krys Mar - Fully Assessed Prescriptions as of 12/26/2017 Sig: CALTRATE 600 + D ORAL Take by mouth. PRAVASTATIN 20 MG TABLET Take 1 tablet by mouth daily * AMLODIPINE 5 MG TABLET Take 1 tablet by mouth once d* PANTOPRAZOLE 40 MG TABLET,DEL* Take 1 tablet by mouth once d* ASPIRIN 81 MG TABLET,DELAYED * Take 1 tablet by mouth once d* PIRFENIDONE 267 MG CAPSULE Take three (3) capsules by mo* Problem List As Of Date 12/26/2017 Noted Resolved IPF (idiopathic pulmonary fibrosis) (HCC) [J84.*INVALID FOR* CKD (chronic kidney disease) [N18.9] INVALID FOR* Hoarse voice quality [R49.0] INVALID FOR* GERD (gastroesophageal reflux disease) [K21.9] INVALID FOR* HTN (hypertension) [I10] INVALID FOR*11/07/2016 Gammopathy, 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 BPH (benign prostatic hyperplasia) [N40.0] INVALID FOR* Family history of ischemic heart disease [Z82.4*INVALID FOR* Coronary artery disease involving tyonek dougherty*INVALID FOR* More... 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] INVALID FOR* Acute midline low back pain [M54.5] INVALID FOR* Chronic hypoxemic respiratory failure (HCC) [J9*INVALID FOR* Pulmonary infiltrate [R91.8] INVALID FOR* Abnormal weight loss [R63.4] INVALID FOR* Encounter Status:Closed by ANGEL CHAVARRIA on 12/26/17 PROGRESS Observed: 12/24/2017 Status: COMPLETED Source: [place] 11:51 AM [facility] REPOSITORY HNO ID: [id number] Author: Angel Han (Ex Phys) Deon Service: (none) Author Type: Dryer And Washer Mechanic Type: Progress Notes Filed: 12/24/2017 12:23 PM Note Text: [facility] Supervising Physician: Dr. Blair Diagnosis: IPF Phase: 2 Session Number: 9 Subjective Data: Patient reports I am feeling fine today, no unusual shortness of breath or chest discomfort. I am ready for exercise. Objective Data: Emergency room visits since your last visit. No Medication changes since last visit. No Today's exercise session was comprised of a warm-up, breathing technique practice, lower and upper body aerobic endurance training, upper and lower body resistance training and lower body stretching/flexibility training as a cool down. Patient tolerated physician prescribed exercise workload. Vitals WNL for patient. This is a hospital based pulmonary rehab program. Patient working towards exercise goals by sustaining exercise intensity and duration. Patient working towards education goal by attending education sessions in pulmonary rehabilitation. Will educate on disease and symptom management as needed. The education topic provided to the patient today was medication use. The patient received this education by video, staff/patient discussion and receiving of an educational hand-out. Patient has verbalized understanding of education topic and the relation to disease managment. Patient's Daily Exercise Log will be scanned into [employer] once it is completed. These can be viewed by going under the scanned documents tab and looking for documents labeled Other respiratory therapy. Daily Exercise Logs contain exercise data such as, but not limited to modality, intensity, duration and frequency of exercise, along with vital signs pre-, during, and post-exercise. Refer to patient's paper medical record for pulse oximetry data, physician prescribed Individualized Treatment Plan, and education sessions covered. Total time of visit 80 minutes. Hardik Arcos HOSP Observed: 12/24/2017 Status: COMPLETED Source: [place] 12:00 AM [facility] [place] RE[facility] Patient Update ([facility]) EVAN FLORES ([id number]) 1945 M Date Time Provider Department 12/24/17 ANGEL CHAVARRIA (EX PHYS) [facility] During your visit today, we recorded the following information about you: Hardik Arcos 12/24/2017 12:23 PM Signed [facility] Supervising Physician: Tejas Blair Diagnosis: IPF Phase: 2 Session Number: 9 Subjective Data: Patient reports ANDquot;I am feeling fine today, no unusual shortness of breath or chest discomfort. I am ready for exercise.ANDquot; Objective Data: Emergency room visits since your last visit. No Medication changes since last visit. No Today's exercise session was comprised of a warm-up, breathing technique practice, lower and upper body aerobic endurance training, upper and lower body resistance training and lower body stretching/flexibility training as a cool down. Patient tolerated physician prescribed exercise workload. Vitals WNL for patient. This is a hospital based pulmonary rehab program. Patient working towards exercise goals by sustaining exercise intensity and duration. Patient working towards education goal by attending education sessions in pulmonary rehabilitation. Will educate on disease and symptom management as needed. The education topic provided to the patient today was medication use. The patient received this education by video, staff/patient discussion and receiving of an educational hand-out. Patient has verbalized understanding of education topic and the relation to disease managment. Patient's Daily Exercise Log will be scanned into [employer] once it is completed. These can be viewed by going under the ANDquot;scanned documentsANDquot; tab and looking for documents labeled ANDquot;Other respiratory therapy.ANDquot; Daily Exercise Logs contain exercise data such as, but not limited to modality, intensity, duration and frequency of exercise, along with vital signs pre-, during, and post-exercise. Refer to patient's paper medical record for pulse oximetry data, physician prescribed Individualized Treatment Plan, and education sessions covered. Total time of visit 80 minutes. Hardik Arcos Allergies As of Date: 12/24/2017 (No Known Allergies) Date Reviewed: 11/29/2017 Reviewed by: Krys Mar - Fully Assessed Prescriptions as of 12/24/2017 Sig: CALTRATE 600 + D ORAL Take by mouth. PRAVASTATIN 20 MG TABLET Take 1 tablet by mouth daily * AMLODIPINE 5 MG TABLET Take 1 tablet by mouth once d* PANTOPRAZOLE 40 MG TABLET,DEL* Take 1 tablet by mouth once d* ASPIRIN 81 MG TABLET,DELAYED * Take 1 tablet by mouth once d* PIRFENIDONE 267 MG CAPSULE Take three (3) capsules by mo* Problem List As Of Date 12/24/2017 Noted Resolved IPF (idiopathic pulmonary fibrosis) (HCC) [J84.*INVALID FOR* CKD (chronic kidney disease) [N18.9] INVALID FOR* Hoarse voice quality [R49.0] INVALID FOR* GERD (gastroesophageal reflux disease) [K21.9] INVALID FOR* HTN (hypertension) [I10] INVALID FOR*11/07/2016 Gammopathy, 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 BPH (benign prostatic hyperplasia) [N40.0] INVALID FOR* Family history of ischemic heart disease [Z82.4*INVALID FOR* Coronary artery disease involving tyonek dougherty*INVALID FOR* More... 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] INVALID FOR* Acute midline low back pain [M54.5] INVALID FOR* Chronic hypoxemic respiratory failure (HCC) [J9*INVALID FOR* Pulmonary infiltrate [R91.8] INVALID FOR* Abnormal weight loss [R63.4] INVALID FOR* Encounter Status:Closed by ANGEL CHAVARRIA on 12/24/17 PROGRESS Observed: 12/20/2017 Status: COMPLETED Source: [place] 11:59 AM [facility] [place] RE[facility] HNO ID: [id number] Author: Michelle Hernandez Service: (none) Author Type: Nurse Practitioner Type: Progress Notes Filed: 12/26/2017 3:28 PM Note Text: OSTEOPOROSIS AND METABOLIC BONE DISEASE /MALE HISTORY and PHYSICAL Gender: male Ethnicity: Age: [age] year old Chief Complaint: Evaluation for osteoporosis TREATMENTS: Medications: None Calcium: Supplement: Dose: 600 mg/twice a day - started that around sep 2017 and Diet, 680 mg/day Multivitamin: No Vitamin D Intake: 800 units in caltrate with D OSTEOPOROSIS RISK FACTORS Weight <127 lbs: No Height: loss: Yes: 1 1/2 inches lost since age 39 Previous Fragility Fractures: vertebral fractures, most recent was T12 and L2 noted on mri in sep 2017- there was no trauma prior to this. he also has compression deformities involving L1, L3, L5. he saw spine. he also reports a history of remote rib fracture. Family History of Osteoporosis: No Family History of Fragility Fractures: None History of parental hip fracture: No Fall History: No MEDICATION RISK FACTORS: a few courses of prednisone in the past for his lungs- not routine use. he also had some steroid tapers for his back pain. Social history: Caffeine: 1-3 c/day Smoking History: Never smoked Alcohol Consumption: about 2 drinks per week Exercise: pulmonary rehab and walking INTERVAL HISTORY: He is here for his first prolia injection. No falls or fractures since [place]. No invasive dental work in the last three months and none planned for the next three months. He reports following with a dentist at least every six months. Last dental exam was 09/2017 and everything was fine per patient. No jaw or thigh pain. No recent infections. REVIEW OF SYSTEMS GENERAL: No weight loss, malaise or fevers HEENT: Negative for frequent or significant headaches, No changes in hearing or vision, no nose bleeds or other nasal problems NECK: Negative for lumps, goiter, pain and significant neck swelling CARDIOVASCULAR: Negative for chest pain, leg swelling, hypertension, CHF or palpitations GI: No nausea, vomiting, or diarrhea : No history of dysuria, frequency or incontinence SKIN: Negative for lesions, rash, and itching HEMATOLOGY/LYMPHOLOGY: Negative for prolonged bleeding, bruising easily or swollen nodes RESP: + hx of COPD, + SOB-wears O2, +cough with clear sputum NEURO: + intermittent numbness and tingling to feet Heartburn: Yes. 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 - GERD (gastroesophageal reflux disease) - HTN (hypertension) - Hyperglycemia - IPF (idiopathic pulmonary fibrosis) (HCC) diagnosed December 2013 - Renal insufficiency PAST SURGICAL HISTORY Procedure Laterality Date - INGUINAL HERNIA REPAIR HX Right - LUNG BIOPSY HX 03/2014 - PAST SURGICAL HISTORY OF cardiac stent x 1 Family History: FAMILY HISTORY Problem Relation Age of Onset - Diabetes Mother - Hypertension Mother - Heart Mother heart failure - pulmonary fibrosis [OTHER] Mother sister as well - Hypertension Father - Seizures Father - COPD Father - pulmonary fibosis [OTHER] Sister lung disease,lung transplant - Heart Brother [place], s/p stent - Lung Disease [OTHER] Brother Allergies: Review of patient's allergies indicates no known allergies. Current Outpatient Prescriptions: CALCIUM CARBONATE/VITAMIN D3 (CALTRATE 600 + D ORAL) Take by mouth. pravastatin (PRAVACHOL) 20 mg tablet Take 1 tablet by mouth daily at bedtime. amLODIPine (NORVASC) 5 mg tablet Take 1 tablet by mouth once daily. pantoprazole DR (PROTONIX) 40 mg tablet Take 1 tablet by mouth once daily. aspirin, enteric coated (ECOTRIN LOW STRENGTH) 81 mg EC tablet Take 1 tablet by mouth once daily. pirfenidone (ESBRIET) 267 mg capsule Take three (3) capsules by mouth three (3) times daily. No current facility-administered medications for this visit. Physical Exam: BP 134/75 Pulse 86 Temp 36.6 ?C (97.9 ?F) (Oral) Ht 182.9 cm (6') Wt 77.1 kg (170 lb) BMI 23.06 kg/m2 GEN: NAD, well groomed. on O2 EYES: conjunctiva and sclera normal. EARS: External ears normal. NOSE/SINUS: Nares normal. Septum midline. Mucosa normal. No drainage or sinus tenderness. THROAT: Normal and no erythema. ORAL: unremarkable NECK: Neck supple, no adenopathy; no thyromegaly HEART: RRR, no murmurs LUNGS: Clear to auscultation. good respiratory effort LYMPH NODES: No cervical lymphadenopathy and no supraclavicular lymphadenopathy. ABDOMEN: Bowel sounds normoactive, no bruits; soft, nontender, without organomegaly or palpable masses. NEURO: Awake, alert and oriented x 3, slow gait and no involuntary motions. SKIN: Skin color, texture, turgor normal. No rash. MSK: Swollen joints none Tender joints none Examination of Back: Profile -Dorsal kyphosis TS: mild -No point tenderness to palpation of spine Labs reviewed and discussed with the patient: Component Latest Ref Rng AND Units 12/04/2017 Creatinine 0.73 - 1.22 mg/dL 1.24 (H) eGFR- >60 eGFR-All Other Races . 57 Calcium 8.5 - 10.2 mg/dL 9.3 Cross-Link N-telopeptide 21.9 - 75.0 nM/mM Creat 35.8 PTH, Intact 15 - 65 pg/mL 37 TSH 0.400 - 5.500 uU/mL 7.500 (H) Vitamin D 25 Hydroxy 31.0 - 80.0 ng/mL 33.9 BONE DENSITY RESULTS: DATE OF EXAM: Oct 28 2017 ?8:44AM ? WRB ? 0870 ?- ?BD DXA - FOREARM SKELETON ?- LEFT / PROCEDURE REASON: closed compression fracture of second lumbar vertebra ?? ? * * * * Physician Interpretation * * * * ?PROCEDURE: ?BD DXA - AXIAL SKELETON, BD DXA - FOREARM SKELETON INDICATION: Wedge compression fracture of second lumbar vertebra, initial encounter for closed fracture Wedge compression fracture of unspecified thoracic vertebra, initial encounter for closed fracture Low back pain TECHNIQUE: Low dose AP left forearm and hip images COMPARISON: LEFT HIP: ?The bone mineral density of the total region of the hip is 1.026 grams per square centimeter which yields a T-score of 0.0. ? ?. LEFT FEMORAL NECK: ?The bone mineral density of the femoral neck is 0.849 grams per square centimeter which yields a T-score of -0.6. ? ?. RIGHT HIP: ? The bone mineral density of the total region of the hip is 1.048 grams per square centimeter which yields a T-score of 0.1. ? ?. RIGHT FEMORAL NECK: ?The bone mineral density of the femoral neck is 0.894 grams per square centimeter which yields a T-score of -0.3. ? ?. LEFT FOREARM: ?The bone mineral density of the radius 1/3 is 0.751 grams per square centimeter which yields a T-score of -1.2 . ? ? mri 10/01/17 IMPRESSION: Interval development of acute/subacute compression deformities at T12 and L2 compared to 06/10/2017. ?No significant bony retropulsion or canal stenosis. Multilevel remote compression deformities involving L1, L3, L5, not significantly changed from 06/10/2017. Multilevel degenerative changes, worst at L3-L4 and L4-L5. IMPRESSION: Osteoporosis on the basis of compression fractures. His lowest T score is in his forearm and is -1.2 History of vitamin D deficiency Monoclonal gammopathy- follows with hematology Pulmonary Fibrosis- follows with pulmonary History of renal insufficiency- though his most recent GFR is >60 PLAN: Calcium 1200 to 1500 mg daily recommended- if cannot achieve this through diet, then calcium citrate supplement recommended. He gets about 680 mg of calcium in his diet daily. Thus, he will Continue calcium and vitamin D Will give prolia #1 today. R/b/a discussed. Fall/infection precautions. He was advised to f/u with his pcp for elevated creatinine and PTH. Routine dental visits advised. Weight bearing exercise as tolerated recommended Will check labs in 5 months. Repeat bmd on same machine as prior 2 years from last bmd (around oct 2019) recommended Continued f/u with PCP for routine health maintenance advised. rba of meds discussed. RTC in [address] Zaid Hernandez APRN.OFFICE WORKER PROGRESS Observed: 12/19/2017 Status: COMPLETED Source: [place] 11:51 AM [facility] REPOSITORY HNO ID: [id number] Author: Angel Chavarria (Ex Phys) Service: (none) Author Type: Dryer And Washer Mechanic Type: Progress Notes Filed: 12/19/2017 12:32 PM Note Text: [facility] Supervising Physician: Dr. Blair Diagnosis: IPF Phase: 2 Session Number: 8 Subjective Data: Patient reports I am feeling fine today, no unusual shortness of breath or chest discomfort. I am ready for exercise. Objective Data: Emergency room visits since your last visit. No Medication changes since last visit. No Today's exercise session was comprised of a warm-up, breathing technique practice, lower and upper body aerobic endurance training, upper and lower body resistance training and lower body stretching/flexibility training as a cool down. Patient tolerated physician prescribed exercise workload. Vitals WNL for patient. This is a hospital based pulmonary rehab program. Patient working towards exercise goals by increasing exercise intensity and duration. Patient working towards education goal by attending education sessions in pulmonary rehabilitation. Will educate on disease and symptom management as needed. The education topic provided to the patient today was traveling with oxygen. The patient received this education by video, staff/patient discussion and receiving of an educational hand-out. Patient has verbalized understanding of education topic and the relation to disease managment. Patient's Daily Exercise Log will be scanned into [employer] once it is completed. These can be viewed by going under the scanned documents tab and looking for documents labeled Other respiratory therapy. Daily Exercise Logs contain exercise data such as, but not limited to modality, intensity, duration and frequency of exercise, along with vital signs pre-, during, and post-exercise. Refer to patient's paper medical record for pulse oximetry data, physician prescribed Individualized Treatment Plan, and education sessions covered. Total time of visit 80 minutes. Angel Chavarria, Hardik Phy HOSP Observed: 12/19/2017 Status: COMPLETED Source: [place] 12:00 AM [facility] REPOSITORY Patient Update ([facility]) EVAN FLOR[place] ([id number]) 1945 M Date Time Provider Department 12/19/17 ANGEL CHAVARRIA (EX PHYS) [facility] During your visit today, we recorded the following information about you: Angel GibbswaltanitraHardik Phy 12/19/2017 12:32 PM Signed [facility] Supervising Physician: Tejas Blair Diagnosis: IPF Phase: 2 Session Number: 8 Subjective Data: Patient reports ANDquot;I am feeling fine today, no unusual shortness of breath or chest discomfort. I am ready for exercise.ANDquot; Objective Data: Emergency room visits since your last visit. No Medication changes since last visit. No Today's exercise session was comprised of a warm-up, breathing technique practice, lower and upper body aerobic endurance training, upper and lower body resistance training and lower body stretching/flexibility training as a cool down. Patient tolerated physician prescribed exercise workload. Vitals WNL for patient. This is a hospital based pulmonary rehab program. Patient working towards exercise goals by increasing exercise intensity and duration. Patient working towards education goal by attending education sessions in pulmonary rehabilitation. Will educate on disease and symptom management as needed. The education topic provided to the patient today was traveling with oxygen. The patient received this education by video, staff/patient discussion and receiving of an educational hand- out. Patient has verbalized understanding of education topic and the relation to disease managment. Patient's Daily Exercise Log will be scanned into [employer] once it is completed. These can be viewed by going under the ANDquot;scanned documentsANDquot; tab and looking for documents labeled ANDquot;Other respiratory therapy.ANDquot; Daily Exercise Logs contain exercise data such as, but not limited to modality, intensity, duration and frequency of exercise, along with vital signs pre-, during, and post-exercise. Refer to patient's paper medical record for pulse oximetry data, physician prescribed Individualized Treatment Plan, and education sessions covered. Total time of visit 80 minutes. Hardik Arcos Phy Allergies As of Date: 12/19/2017 (No Known Allergies) Date Reviewed: 11/29/2017 Reviewed by: Krys Mar - Fully Assessed Prescriptions as of 12/19/2017 Sig: CALTRATE 600 + D ORAL Take by mouth. PRAVASTATIN 20 MG TABLET Take 1 tablet by mouth daily * AMLODIPINE 5 MG TABLET Take 1 tablet by mouth once d* PANTOPRAZOLE 40 MG TABLET,DEL* Take 1 tablet by mouth once d* ASPIRIN 81 MG TABLET,DELAYED * Take 1 tablet by mouth once d* PIRFENIDONE 267 MG CAPSULE Take three (3) capsules by mo* Problem List As Of Date 12/19/2017 Noted Resolved IPF (idiopathic pulmonary fibrosis) (HCC) [J84.*INVALID FOR* CKD (chronic kidney disease) [N18.9] INVALID FOR* Hoarse voice quality [R49.0] INVALID FOR* GERD (gastroesophageal reflux disease) [K21.9] INVALID FOR* HTN (hypertension) [I10] INVALID FOR*11/07/2016 Gammopathy, 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 BPH (benign prostatic hyperplasia) [N40.0] INVALID FOR* Family history of ischemic heart disease [Z82.4*INVALID FOR* Coronary artery disease involving tyonek dougherty*INVALID FOR* More... 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] INVALID FOR* Acute midline low back pain [M54.5] INVALID FOR* Chronic hypoxemic respiratory failure (HCC) [J9*INVALID FOR* Pulmonary infiltrate [R91.8] INVALID FOR* Abnormal weight loss [R63.4] INVALID FOR* Encounter Status:Closed by ANGEL CHAVARRIA on 12/19/17 PROGRESS Observed: 12/17/2017 Status: COMPLETED Source: [place] 11:42 AM [facility] OTHER [facility]AMPUS REPOSITORY HNO ID: [id number] Author: Angel Han (Ex Phys) Deon Service: (none) Author Type: Dryer And Washer Mechanic Type: Progress Notes Filed: 12/17/2017 12:27 PM Note Text: [facility] Supervising Physician: Dr. Blair Diagnosis: IPF Phase: 2 Session Number: 7 Subjective Data: Patient reports I am feeling fine today, no unusual shortness of breath or chest discomfort. I am ready for exercise. Objective Data: Emergency room visits since your last visit. No Medication changes since last visit. No Today's exercise session was comprised of a warm-up, breathing technique practice, lower and upper body aerobic endurance training, upper and lower body resistance training and lower body stretching/flexibility training as a cool down. Patient tolerated physician prescribed exercise workload. Vitals WNL for patient. This is a hospital based pulmonary rehab program. Patient working towards exercise goals by increasing exercise intensity and duration. Patient working towards education goal by attending education sessions in pulmonary rehabilitation. Will educate on disease and symptom management as needed. The education topic provided to the patient today was zones/ when to call your doctor. The patient received this education by video, staff/patient discussion and receiving of an educational hand-out. Patient has verbalized understanding of education topic and the relation to disease managment. Patient's Daily Exercise Log will be scanned into [employer] once it is completed. These can be viewed by going under the scanned documents tab and looking for documents labeled Other respiratory therapy. Daily Exercise Logs contain exercise data such as, but not limited to modality, intensity, duration and frequency of exercise, along with vital signs pre-, during, and post-exercise. Refer to patient's paper medical record for pulse oximetry data, physician prescribed Individualized Treatment Plan, and education sessions covered. Total time of visit 80 minutes. Hardik Arcos [facility] Observed: 12/17/2017 Status: COMPLETED Source: [place] 12:00 AM [facility] REPOSITORY Patient Update ([facility] EVAN FLORES ([id number]) 1945 M Date Time Provider Department 12/17/17 ANGEL CHAVARRIA (EX PHYS) [facility] During your visit today, we recorded the following information about you: Hardik Arcos 12/17/2017 12:27 PM Signed [facility] Supervising Physician: Tejas Blair Diagnosis: IPF Phase: 2 Session Number: 7 Subjective Data: Patient reports ANDquot;I am feeling fine today, no unusual shortness of breath or chest discomfort. I am ready for exercise.ANDquot; Objective Data: Emergency room visits since your last visit. No Medication changes since last visit. No Today's exercise session was comprised of a warm-up, breathing technique practice, lower and upper body aerobic endurance training, upper and lower body resistance training and lower body stretching/flexibility training as a cool down. Patient tolerated physician prescribed exercise workload. Vitals WNL for patient. This is a hospital based pulmonary rehab program. Patient working towards exercise goals by increasing exercise intensity and duration. Patient working towards education goal by attending education sessions in pulmonary rehabilitation. Will educate on disease and symptom management as needed. The education topic provided to the patient today was zones/ when to call your doctor. The patient received this education by video, staff/patient discussion and receiving of an educational hand- out. Patient has verbalized understanding of education topic and the relation to disease managment. Patient's Daily Exercise Log will be scanned into [employer] once it is completed. These can be viewed by going under the ANDquot;scanned documentsANDquot; tab and looking for documents labeled ANDquot;Other respiratory therapy.ANDquot; Daily Exercise Logs contain exercise data such as, but not limited to modality, intensity, duration and frequency of exercise, along with vital signs pre-, during, and post-exercise. Refer to patient's paper medical record for pulse oximetry data, physician prescribed Individualized Treatment Plan, and education sessions covered. Total time of visit 80 minutes. Angel Chavarria, Hardik Ovalle Allergies As of Date: 12/17/2017 (No Known Allergies) Date Reviewed: 11/29/2017 Reviewed by: Krys Mar - Fully Assessed Prescriptions as of 12/17/2017 Sig: CALTRATE 600 + D ORAL Take by mouth. PRAVASTATIN 20 MG TABLET Take 1 tablet by mouth daily * AMLODIPINE 5 MG TABLET Take 1 tablet by mouth once d* PANTOPRAZOLE 40 MG TABLET,DEL* Take 1 tablet by mouth once d* ASPIRIN 81 MG TABLET,DELAYED * Take 1 tablet by mouth once d* PIRFENIDONE 267 MG CAPSULE Take three (3) capsules by mo* Problem List As Of Date 12/17/2017 Noted Resolved IPF (idiopathic pulmonary fibrosis) (HCC) [J84.*INVALID FOR* CKD (chronic kidney disease) [N18.9] INVALID FOR* Hoarse voice quality [R49.0] INVALID FOR* GERD (gastroesophageal reflux disease) [K21.9] INVALID FOR* HTN (hypertension) [I10] INVALID FOR*11/07/2016 Gammopathy, 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 BPH (benign prostatic hyperplasia) [N40.0] INVALID FOR* Family history of ischemic heart disease [Z82.4*INVALID FOR* Coronary artery disease involving tyonek dougherty*INVALID FOR* More... 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] INVALID FOR* Acute midline low back pain [M54.5] INVALID FOR* Chronic hypoxemic respiratory failure (HCC) [J9*INVALID FOR* Pulmonary infiltrate [R91.8] INVALID FOR* Abnormal weight loss [R63.4] INVALID FOR* Encounter Status:Closed by ANGEL CHAVARRIA on 12/17/17 PROGRESS Observed: 12/12/2017 Status: COMPLETED Source: [place] 11:52 AM CLINIC OTHER CAMPUS REPOSITORY O ID: [id number] Author: Angel Han (Ex Phys) Deon Service: (none) Author Type: Dryer And Washer Mechanic Type: Progress Notes Filed: 12/12/2017 12:29 PM Note Text: [facility] Supervising Physician: Dr. Blair Diagnosis: IPF Phase: 2 Session Number: 6 Subjective Data: Patient reports I am feeling fine today, no unusual shortness of breath or chest discomfort. I am ready for exercise. Objective Data: Emergency room visits since your last visit. No Medication changes since last visit. No Today's exercise session was comprised of a warm-up, breathing technique practice, lower and upper body aerobic endurance training, upper and lower body resistance training and lower body stretching/flexibility training as a cool down. Patient tolerated physician prescribed exercise workload. Vitals WNL for patient. This is a hospital based pulmonary rehab program. Patient working towards exercise goals by sustaining exercise intensity and duration. Patient working towards education goal by attending education sessions in pulmonary rehabilitation. Will educate on disease and symptom management as needed. The education topic provided to the patient today was COPD. The patient received this education by video, staff/patient discussion and receiving of an educational hand- out. Patient has verbalized understanding of education topic and the relation to disease managment. Patient's Daily Exercise Log will be scanned into [employer] once it is completed. These can be viewed by going under the scanned documents tab and looking for documents labeled Other respiratory therapy. Daily Exercise Logs contain exercise data such as, but not limited to modality, intensity, duration and frequency of exercise, along with vital signs pre-, during, and post-exercise. Refer to patient's paper medical record for pulse oximetry data, physician prescribed Individualized Treatment Plan, and education sessions covered. Total time of visit 80 minutes. Hardik Arcos [facility]OS[facility] Observed: 12/12/2017 Status: COMPLETED Source: [place] 12:00 AM [facility] REPOSITORY Patient Update ([facility]) EVAN FLORES ([id number]) 1945 M Date Time Provider Department 12/12/17 ANGEL CHAVARRIA (EX PHYS) [facility] During your visit today, we recorded the following information about you: Hardik Arcos 12/12/2017 12:29 PM Signed [facility] Supervising Physician: Tejas Blair Diagnosis: IPF Phase: 2 Session Number: 6 Subjective Data: Patient reports ANDquot;I am feeling fine today, no unusual shortness of breath or chest discomfort. I am ready for exercise.ANDquot; Objective Data: Emergency room visits since your last visit. No Medication changes since last visit. No Today's exercise session was comprised of a warm-up, breathing technique practice, lower and upper body aerobic endurance training, upper and lower body resistance training and lower body stretching/flexibility training as a cool down. Patient tolerated physician prescribed exercise workload. Vitals WNL for patient. This is a hospital based pulmonary rehab program. Patient working towards exercise goals by sustaining exercise intensity and duration. Patient working towards education goal by attending education sessions in pulmonary rehabilitation. Will educate on disease and symptom management as needed. The education topic provided to the patient today was COPD. The patient received this education by video, staff/patient discussion and receiving of an educational hand-out. Patient has verbalized understanding of education topic and the relation to disease managment. Patient's Daily Exercise Log will be scanned into [employer] once it is completed. These can be viewed by going under the ANDquot;scanned documentsANDquot; tab and looking for documents labeled ANDquot;Other respiratory therapy.ANDquot; Daily Exercise Logs contain exercise data such as, but not limited to modality, intensity, duration and frequency of exercise, along with vital signs pre-, during, and post-exercise. Refer to patient's paper medical record for pulse oximetry data, physician prescribed Individualized Treatment Plan, and education sessions covered. Total time of visit 80 minutes. Angel Chavarria, Hardik Ovalle Allergies As of Date: 12/12/2017 (No Known Allergies) Date Reviewed: 11/29/2017 Reviewed by: Krys Mar - Fully Assessed Prescriptions as of 12/12/2017 Sig: CALTRATE 600 + D ORAL Take by mouth. PRAVASTATIN 20 MG TABLET Take 1 tablet by mouth daily * AMLODIPINE 5 MG TABLET Take 1 tablet by mouth once d* PANTOPRAZOLE 40 MG TABLET,DEL* Take 1 tablet by mouth once d* ASPIRIN 81 MG TABLET,DELAYED * Take 1 tablet by mouth once d* PIRFENIDONE 267 MG CAPSULE Take three (3) capsules by mo* Problem List As Of Date 12/12/2017 Noted Resolved IPF (idiopathic pulmonary fibrosis) (HCC) [J84.*INVALID FOR* CKD (chronic kidney disease) [N18.9] INVALID FOR* Hoarse voice quality [R49.0] INVALID FOR* GERD (gastroesophageal reflux disease) [K21.9] INVALID FOR* HTN (hypertension) [I10] INVALID FOR*11/07/2016 Gammopathy, 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 BPH (benign prostatic hyperplasia) [N40.0] INVALID FOR* Family history of ischemic heart disease [Z82.4*INVALID FOR* Coronary artery disease involving tyonek dougherty*INVALID FOR* More... 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] INVALID FOR* Acute midline low back pain [M54.5] INVALID FOR* Chronic hypoxemic respiratory failure (HCC) [J9*INVALID FOR* Pulmonary infiltrate [R91.8] INVALID FOR* Abnormal weight loss [R63.4] INVALID FOR* Encounter Status:Closed by ANGEL CHAVARRIA on 12/12/17 EITAN Observed: 12/11/2017 Status: COMPLETED Source: [place] 12:00 AM [facility] REPOSITORY Telephone ([facility]) SANDRAEVAN Kyle ([id number]) 1945 M Date Time Provider Department 12/11/17 KRYS MAR During your visit today, we recorded the following information about you: Krys Mar MD 12/11/2017 9:40 AM Signed [facility] to [facility] 12/12/2017 11:09 AM Addendum I discussed results with evan. creatinine and tsh mildly elevated. I recommended that he discuss this with his pcp. vit D level is normal. he can continue his current vitamin D dose. I again recommended treatment for his osteoporosis. ?Options were discussed. he would like to start prolia. RBA discussed and information to read was previously given to him. Dental and infectious precautions discussed and continued routine dental visits advised. I sent a message for him to be scheduled to see [facility] to receive prolia once it is approved by his insurance. he would like to get this [place] in [place] as this is more convenient for him. ?I would like to see him back for his next prolia injection with labs about 1 month prior - (calcium, creatinine, vit D). Krys Mar MD cc MD Tony Trejo PA ? ? Kevin Mai MD 12/12/2017 1:31 PM Signed Have him recheck labs for thyroid and renal function. Kevin Mai MD 12/12/2017 1:32 PM Signed Addended by: KEVIN MAI MD on: 12/12/2017 01:32 PM Modules accepted: Orders Jessica Bartlett Ma 12/12/2017 3:11 PM Signed Pt notified via [employer] of needing to complete labs in a week or so. Lab hours given in message. Jessica Hernandez APRN.PALMIRA MACE 12/17/2017 12:05 PM Signed Please inform the patient that prolia is approved. Please schedule him to see me for an office visit and prolia. He is due now. Thanks, PALMIRA Day APRN.CNP, APRN.CNP 12/20/2017 2:15 PM Signed Patient is scheduled. Michelle Hernandez APRN.CNP Allergies As of Date: 12/11/2017 (No Known Allergies) Date Reviewed: 11/29/2017 Reviewed by: Krys Mar - Fully Assessed Reason for Visit: Results [95] Primary Visit Diagnosis:Hypothyroidism, acquired [E03.9] Other Visit Diagnosis:Renal insufficiency [N28.9] Order(s):TSH BLD [SQTSH] Order #: [id number] FUTURE T4 FREE/FREE THYROX [SQFT4] Order #: [id number] FUTURE T3 BLD [SQT3] Order #: [id number] FUTURE BASIC METABOLIC PNL [SQBMP] Order #: [id number] FUTURE Prescriptions as of 12/11/2017 Sig: CALTRATE 600 + D ORAL Take by mouth. PRAVASTATIN 20 MG TABLET Take 1 tablet by mouth daily * AMLODIPINE 5 MG TABLET Take 1 tablet by mouth once d* PANTOPRAZOLE 40 MG TABLET,DEL* Take 1 tablet by mouth once d* ASPIRIN 81 MG TABLET,DELAYED * Take 1 tablet by mouth once d* PIRFENIDONE 267 MG CAPSULE Take three (3) capsules by mo* Problem List As Of Date 12/11/2017 Noted Resolved IPF (idiopathic pulmonary fibrosis) (HCC) [J84.*INVALID FOR* CKD (chronic kidney disease) [N18.9] INVALID FOR* Hoarse voice quality [R49.0] INVALID FOR* GERD (gastroesophageal reflux disease) [K21.9] INVALID FOR* HTN (hypertension) [I10] INVALID FOR*11/07/2016 Gammopathy, 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 BPH (benign prostatic hyperplasia) [N40.0] INVALID FOR* Family history of ischemic heart disease [Z82.4*INVALID FOR* Coronary artery disease involving tyonek dougherty*INVALID FOR* More... 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] INVALID FOR* Acute midline low back pain [M54.5] INVALID FOR* Chronic hypoxemic respiratory failure (HCC) [J9*INVALID FOR* Pulmonary infiltrate [R91.8] INVALID FOR* Abnormal weight loss [R63.4] INVALID FOR* Encounter Status:Closed by FILE, KRYS Han MD on 12/12/17 PROGRESS Observed: 12/10/2017 Status: COMPLETED Source: [place] 11:45 AM CLINIC OTHER CAMPUS REPOSITORY O ID: [id number] Author: Angel Han (Ex Phys) Deon Service: (none) 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 Blair Diagnosis: IPF Phase: 2 Session Number: 5 Subjective Data: Patient reports I am feeling fine today, no unusual shortness of breath or chest discomfort. I am ready for exercise. Objective Data: Emergency room visits since your last visit. No Medication changes since last visit. No Today's exercise session was comprised of a warm-up, breathing technique practice, lower and upper body aerobic endurance training, upper and lower body resistance training and lower body stretching/flexibility training as a cool down. Patient tolerated physician prescribed exercise workload. Vitals WNL for patient. This is a hospital based pulmonary rehab program. Patient working towards exercise goals by sustaining exercise intensity and duration. Patient working towards education goal by attending education sessions in pulmonary rehabilitation. Will educate on disease and symptom management as needed. The education topic provided to the patient today was Lung AANDP. The patient received this education by video, staff/patient discussion and receiving of an educational hand- out. Patient has verbalized understanding of education topic and the relation to disease managment. Patient's Daily Exercise Log will be scanned into [employer] once it is completed. These can be viewed by going under the scanned documents tab and looking for documents labeled Other respiratory therapy. Daily Exercise Logs contain exercise data such as, but not limited to modality, intensity, duration and frequency of exercise, along with vital signs pre-, during, and post-exercise. Refer to patient's paper medical record for pulse oximetry data, physician prescribed Individualized Treatment Plan, and education sessions covered. Total time of visit 80 minutes. Hardik Arcos [facility]OSP Observed: 12/10/2017 Status: COMPLETED Source: [place] 12:00 AM [facility] REPOSITORY Patient Update ([facility]) EVAN FLORES ([id number]) 1945 M Date Time Provider Department 12/10/17 ANGEL CHAVARRIA (EX PHYS) [facility] During your visit today, we recorded the following information about you: Hardik Arcos 12/10/2017 12:25 PM Signed [facility] Supervising Physician: Tejas Blair Diagnosis: IPF Phase: 2 Session Number: 5 Subjective Data: Patient reports ANDquot;I am feeling fine today, no unusual shortness of breath or chest discomfort. I am ready for exercise.ANDquot; Objective Data: Emergency room visits since your last visit. No Medication changes since last visit. No Today's exercise session was comprised of a warm-up, breathing technique practice, lower and upper body aerobic endurance training, upper and lower body resistance training and lower body stretching/flexibility training as a cool down. Patient tolerated physician prescribed exercise workload. Vitals WNL for patient. This is a hospital based pulmonary rehab program. Patient working towards exercise goals by sustaining exercise intensity and duration. Patient working towards education goal by attending education sessions in pulmonary rehabilitation. Will educate on disease and symptom management as needed. The education topic provided to the patient today was Lung AANDamp;P. The patient received this education by video, staff/patient discussion and receiving of an educational hand-out. Patient has verbalized understanding of education topic and the relation to disease managment. Patient's Daily Exercise Log will be scanned into [employer] once it is completed. These can be viewed by going under the ANDquot;scanned documentsANDquot; tab and looking for documents labeled ANDquot;Other respiratory therapy.ANDquot; Daily Exercise Logs contain exercise data such as, but not limited to modality, intensity, duration and frequency of exercise, along with vital signs pre-, during, and post-exercise. Refer to patient's paper medical record for pulse oximetry data, physician prescribed Individualized Treatment Plan, and education sessions covered. Total time of visit 80 minutes. Hardik Arcos Allergies As of Date: 12/10/2017 (No Known Allergies) Date Reviewed: 11/29/2017 Reviewed by: Krys Mar - Fully Assessed Prescriptions as of 12/10/2017 Sig: CALTRATE 600 + D ORAL Take by mouth. PRAVASTATIN 20 MG TABLET Take 1 tablet by mouth daily * AMLODIPINE 5 MG TABLET Take 1 tablet by mouth once d* PANTOPRAZOLE 40 MG TABLET,DEL* Take 1 tablet by mouth once d* ASPIRIN 81 MG TABLET,DELAYED * Take 1 tablet by mouth once d* PIRFENIDONE 267 MG CAPSULE Take three (3) capsules by mo* Problem List As Of Date 12/10/2017 Noted Resolved IPF (idiopathic pulmonary fibrosis) (HCC) [J84.*INVALID FOR* CKD (chronic kidney disease) [N18.9] INVALID FOR* Hoarse voice quality [R49.0] INVALID FOR* GERD (gastroesophageal reflux disease) [K21.9] INVALID FOR* HTN (hypertension) [I10] INVALID FOR*11/07/2016 Gammopathy, 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 BPH (benign prostatic hyperplasia) [N40.0] INVALID FOR* Family history of ischemic heart disease [Z82.4*INVALID FOR* Coronary artery disease involving tyonek dougherty*INVALID FOR* More... 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] INVALID FOR* Acute midline low back pain [M54.5] INVALID FOR* Chronic hypoxemic respiratory failure (HCC) [J9*INVALID FOR* Pulmonary infiltrate [R91.8] INVALID FOR* Abnormal weight loss [R63.4] INVALID FOR* Encounter Status:Closed by ANGEL CHAVARRIA on 12/10/17 PROGRESS Observed: 12/05/2017 Status: COMPLETED Source: [place] 11:43 AM CLINIC OTHER CAMPUS REPOSITORY HNO ID: [id number] Author: Angel Han (Ex Phys) Deon Service: (none) 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 Blair Diagnosis: IPF J84.112 Phase: 2 Session Number: 4 Subjective Data: Patient reports I am feeling fine today, no unusual shortness of breath or chest discomfort. I am ready for exercise. Objective Data: Emergency room visits since your last visit. No Medication changes since last visit. No Today's exercise session was comprised of a warm-up, breathing technique practice, lower and upper body aerobic endurance training, upper and lower body resistance training and lower body stretching/flexibility training as a cool down. Patient tolerated physician prescribed exercise workload. Vitals WNL for patient. This is a hospital based pulmonary rehab program. Patient working towards exercise goals by increasing exercise intensity and duration. Patient working towards education goal by attending education sessions in pulmonary rehabilitation. Will educate on disease and symptom management as needed. The education topic provided to the patient today was breathing techniques. The patient received this education by video, staff/patient discussion and receiving of an educational hand-out. Patient has verbalized understanding of education topic and the relation to disease managment. Patient's Daily Exercise Log will be scanned into [employer] once it is completed. These can be viewed by going under the scanned documents tab and looking for documents labeled Other respiratory therapy. Daily Exercise Logs contain exercise data such as, but not limited to modality, intensity, duration and frequency of exercise, along with vital signs pre-, during, and post-exercise. Refer to patient's paper medical record for pulse oximetry data, physician prescribed Individualized Treatment Plan, and education sessions covered. Total time of visit 80 minutes. Hardik Arcos [facility] Observed: 12/05/2017 Status: COMPLETED Source: [place] 12:00 AM [facility] OTHER [place] REPOSITORY Patient Update ([facility]) EVAN FLORES ([id number]) 1945 M Date Time Provider Department 12/05/17 ANGEL CHAVARRIA (EX PHYS) [facility] During your visit today, we recorded the following information about you: Hardik Arcos Phy 12/05/2017 12:22 PM Signed [facility] Supervising Physician: Tejas Blair Diagnosis: IPF J84.112 Phase: 2 Session Number: 4 Subjective Data: Patient reports ANDquot;I am feeling fine today, no unusual shortness of breath or chest discomfort. I am ready for exercise.ANDquot; Objective Data: Emergency room visits since your last visit. No Medication changes since last visit. No Today's exercise session was comprised of a warm-up, breathing technique practice, lower and upper body aerobic endurance training, upper and lower body resistance training and lower body stretching/flexibility training as a cool down. Patient tolerated physician prescribed exercise workload. Vitals WNL for patient. This is a hospital based pulmonary rehab program. Patient working towards exercise goals by increasing exercise intensity and duration. Patient working towards education goal by attending education sessions in pulmonary rehabilitation. Will educate on disease and symptom management as needed. The education topic provided to the patient today was breathing techniques. The patient received this education by video, staff/patient discussion and receiving of an educational hand- out. Patient has verbalized understanding of education topic and the relation to disease managment. Patient's Daily Exercise Log will be scanned into [employer] once it is completed. These can be viewed by going under the ANDquot;scanned documentsANDquot; tab and looking for documents labeled ANDquot;Other respiratory therapy.ANDquot; Daily Exercise Logs contain exercise data such as, but not limited to modality, intensity, duration and frequency of exercise, along with vital signs pre-, during, and post-exercise. Refer to patient's paper medical record for pulse oximetry data, physician prescribed Individualized Treatment Plan, and education sessions covered. Total time of visit 80 minutes. Angel Chavarria, Hardik Ovalle Allergies As of Date: 12/05/2017 (No Known Allergies) Date Reviewed: 11/29/2017 Reviewed by: Krys Mar - Fully Assessed Prescriptions as of 12/05/2017 Sig: CALTRATE 600 + D ORAL Take by mouth. PRAVASTATIN 20 MG TABLET Take 1 tablet by mouth daily * AMLODIPINE 5 MG TABLET Take 1 tablet by mouth once d* PANTOPRAZOLE 40 MG TABLET,DEL* Take 1 tablet by mouth once d* ASPIRIN 81 MG TABLET,DELAYED * Take 1 tablet by mouth once d* PIRFENIDONE 267 MG CAPSULE Take three (3) capsules by mo* Problem List As Of Date 12/05/2017 Noted Resolved IPF (idiopathic pulmonary fibrosis) (HCC) [J84.*INVALID FOR* CKD (chronic kidney disease) [N18.9] INVALID FOR* Hoarse voice quality [R49.0] INVALID FOR* GERD (gastroesophageal reflux disease) [K21.9] INVALID FOR* HTN (hypertension) [I10] INVALID FOR*11/07/2016 Gammopathy, 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 BPH (benign prostatic hyperplasia) [N40.0] INVALID FOR* Family history of ischemic heart disease [Z82.4*INVALID FOR* Coronary artery disease involving tyonek dougherty*INVALID FOR* More... 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] INVALID FOR* Acute midline low back pain [M54.5] INVALID FOR* Chronic hypoxemic respiratory failure (HCC) [J9*INVALID FOR* Pulmonary infiltrate [R91.8] INVALID FOR* Abnormal weight loss [R63.4] INVALID FOR* Encounter Status:Closed by ANGEL CHAVARRIA on 12/05/17 PTH, INTACT Collected: 12/04/2017 Status: F Source: [place] 9:11 AM [facility] [place] REPOSITORY TYPE CODE TESTS RESULT OUT OF REFERENCE UNITS RANGE LAB PTH 15-65 pg/mL PTH, Intact 37 Performed By: #### PTHI, CA, CRET1, TSH, VITD #### [facility] [address] [address] #### PROCOL #### [facility] [address] [place] [phone] CALCIUM, TOTAL Collected: 12/04/2017 Status: F Source: [place] 9:11 AM [facility] [place] REPOSITORY TYPE CODE TESTS RESULT OUT OF RANGE REFERENCE UNITS LAB CA 8.5-10.2 mg/dL Calcium, 9.3 Total Performed By: #### PTHI, CA, CRET1, TSH, VITD #### [place] [address] [place] [address] #### PROCOL #### [facility] [address] [place] [phone] CREATININE Collected: 12/04/2017 Status: F Source: [place] 9:11 AM [facility] [place] [facility] REPOSITORY TYPE CODE TESTS RESULT OUT OF REFERENCE UNITS RANGE LAB CRET 0.73-1.22 mg/dL High Creatinine 1.24 LAB GFRAA eGFR- >60 Amer. LAB GFRNAA . eGFR-All Other Races 57 Result Comment: eGFR (Estimated GFR) Units of measure: mL/min/1.73 meters squared eGFR is derived from the reexpressed MDRD Study equation using the following parameters: serum creatinine, age, gender and race. The creatinine assay has been calibrated to be traceable to IDMS. An eGFR <60 mL/min/1.73m2 for >3 months is consistent with chronic kidney disease. Refer to KDOQI guidelines for clinical interpretation. In patients with unstable renal function, e.g. those with acute kidney injury, the eGFR may not accurately reflect actual GFR. Performed By: #### PTHI, CA, CRET1, TSH, VITD #### [facility] [address] [place] [phone] #### PROCOL #### [address] [address] [phone] TSH Collected: 12/04/2017 Status: F Source: [place] 9:11 AM [facility] [place] REPOSITORY TYPE CODE TESTS RESULT OUT OF RANGE REFERENCE UNITS LAB TSH 0.400-5.500 uU/mL High TSH 7.500 Performed By: #### PTHI, CA, CRET1, TSH, VITD #### [facility] [address] [address] #### PROCOL #### [address] [address] [phone] VITAMIN D 25 HYDROXY Collected: 12/04/2017 Status: F Source: [place] 9:11 AM [facility] [place] REPOSITORY TYPE CODE TESTS RESULT OUT OF REFERENCE UNITS RANGE LAB VITD 31.0-80.0 ng/mL Vitamin D 25 33.9 Hydroxy Result Comment: Classification of 25 [place] Vitamin D status: Insufficiency/Moderate Deficiency: < or = 30 ng/mL Sufficiency/Optimal Levels: 31 to 80 ng/mL Toxicity: > 100 ng/mL Test performed by chemiluminescent immunoassay. Performed By: #### PTHI, CA, CRET1, TSH, VITD #### [facility] [address] [phone] #### PROCOL #### [address] [address] [phone] PROCOLLAGEN TYPE 1 Collected: 12/04/2017 Status: F Source: [place] 9:11 AM [facility] [place] REPOSITORY TYPE CODE TESTS RESULT OUT OF REFERENCE UNITS RANGE LAB PROCLL 22-105 ug/L Procollagen Type 1 56 Result Comment: (NOTE) Performed by [facility], [address] [place] [address] [phone] [email or web address], Chadd Angeles MD, Lab. Director Performed By: #### PTHI, CA, CRET1, TSH, VITD #### [facility] [address] [place], [place] [address] #### PROCOL #### [facility] [address] [place] [address] [phone] X-LINK N-TELOPEPTIDE Collected: 12/04/2017 Status: F Source: [place] 9:11 AM [facility] REPOSITORY TYPE CODE TESTS RESULT OUT OF RANGE REFERENCE UNITS LAB UNTX 21.9-75.0 nM/mM Creat X-Link 35.8 N-telopeptid e Performed By: #### UNTX2 #### [facility] [address] [place], [place] [address] PROGRESS Observed: 12/03/2017 Status: COMPLETED Source: [place] 11:53 AM [facility] REPOSITORY HNO ID: [id number] Author: Angel Han (Ex Phys) Deon Service: (none) Author 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 Blair Diagnosis: IPF Phase: 2 Session Number: 3 Subjective Data: Patient reports I am feeling fine today, no unusual shortness of breath or chest discomfort. I am ready for exercise. Objective Data: Emergency room visits since your last visit. No Medication changes since last visit. No Today's exercise session was comprised of a warm-up, breathing technique practice, lower and upper body aerobic endurance training, upper and lower body resistance training and lower body stretching/flexibility training as a cool down. Patient tolerated physician prescribed exercise workload. Vitals WNL for patient. This is a hospital based pulmonary rehab program. Patient working towards exercise goals by sustaining exercise intensity and duration. Patient working towards education goal by attending education sessions in pulmonary rehabilitation. Will educate on disease and symptom management as needed. The education topic provided to the patient today was advanced directives. The patient received this education by video, staff/patient discussion and receiving of an educational hand-out. Patient has verbalized understanding of education topic and the relation to disease managment. Patient's Daily Exercise Log will be scanned into [employer] once it is completed. These can be viewed by going under the scanned documents tab and looking for documents labeled Other respiratory therapy. Daily Exercise Logs contain exercise data such as, but not limited to modality, intensity, duration and frequency of exercise, along with vital signs pre-, during, and post-exercise. Refer to patient's paper medical record for pulse oximetry data, physician prescribed Individualized Treatment Plan, and education sessions covered. Total time of visit 80 minutes. Hardik Arcos [facility] Observed: 12/03/2017 Status: COMPLETED Source: [place] 12:00 AM [facility] REPOSITORY Patient Update ([facility]) EVAN FLORES ([id number]) 1945 M Date Time Provider Department 12/03/17 ANGEL CHAVARRIA (EX PHYS) [facility] During your visit today, we recorded the following information about you: Hardik Arcos Phy 12/03/2017 12:52 PM Signed [facility] Supervising Physician: Tejas Blair Diagnosis: IPF Phase: 2 Session Number: 3 Subjective Data: Patient reports ANDquot;I am feeling fine today, no unusual shortness of breath or chest discomfort. I am ready for exercise.ANDquot; Objective Data: Emergency room visits since your last visit. No Medication changes since last visit. No Today's exercise session was comprised of a warm-up, breathing technique practice, lower and upper body aerobic endurance training, upper and lower body resistance training and lower body stretching/flexibility training as a cool down. Patient tolerated physician prescribed exercise workload. Vitals WNL for patient. This is a hospital based pulmonary rehab program. Patient working towards exercise goals by sustaining exercise intensity and duration. Patient working towards education goal by attending education sessions in pulmonary rehabilitation. Will educate on disease and symptom management as needed. The education topic provided to the patient today was advanced directives. The patient received this education by video, staff/patient discussion and receiving of an educational hand- out. Patient has verbalized understanding of education topic and the relation to disease managment. Patient's Daily Exercise Log will be scanned into [employer] once it is completed. These can be viewed by going under the ANDquot;scanned documentsANDquot; tab and looking for documents labeled ANDquot;Other respiratory therapy.ANDquot; Daily Exercise Logs contain exercise data such as, but not limited to modality, intensity, duration and frequency of exercise, along with vital signs pre-, during, and post-exercise. Refer to patient's paper medical record for pulse oximetry data, physician prescribed Individualized Treatment Plan, and education sessions covered. Total time of visit 80 minutes. Hardik Arcos Phy Allergies As of Date: 12/03/2017 (No Known Allergies) Date Reviewed: 11/29/2017 Reviewed by: Krys Mar - Fully Assessed Prescriptions as of 12/03/2017 Sig: CALTRATE 600 + D ORAL Take by mouth. PRAVASTATIN 20 MG TABLET Take 1 tablet by mouth daily * AMLODIPINE 5 MG TABLET Take 1 tablet by mouth once d* PANTOPRAZOLE 40 MG TABLET,DEL* Take 1 tablet by mouth once d* ASPIRIN 81 MG TABLET,DELAYED * Take 1 tablet by mouth once d* PIRFENIDONE 267 MG CAPSULE Take three (3) capsules by mo* Problem List As Of Date 12/03/2017 Noted Resolved IPF (idiopathic pulmonary fibrosis) (HCC) [J84.*INVALID FOR* CKD (chronic kidney disease) [N18.9] INVALID FOR* Hoarse voice quality [R49.0] INVALID FOR* GERD (gastroesophageal reflux disease) [K21.9] INVALID FOR* HTN (hypertension) [I10] INVALID FOR*11/07/2016 Gammopathy, 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 BPH (benign prostatic hyperplasia) [N40.0] INVALID FOR* Family history of ischemic heart disease [Z82.4*INVALID FOR* Coronary artery disease involving tyonek dougherty*INVALID FOR* More... 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] INVALID FOR* Acute midline low back pain [M54.5] INVALID FOR* Chronic hypoxemic respiratory failure (HCC) [J9*INVALID FOR* Pulmonary infiltrate [R91.8] INVALID FOR* Abnormal weight loss [R63.4] INVALID FOR* Encounter Status:Closed by ANGEL CHAVARRIA on 12/03/17 PROGRESS Observed: 11/29/2017 Status: COMPLETED Source: [place] 11:23 AM [facility] [place] [facility] REPOSITORY HNO ID: [id number] Author: Mark Dale, TANK COOPER Service: (none) Author Type: Respiratory Therapist Type: Progress Notes Filed: 11/29/2017 11:42 AM Note Text: IRB #[id number]: Idiopathic Pulmonary Fibrosis Prospective Outcomes (IPF-PRO) Registry Evan Flores returns today for follow-up encounter for above-mentioned registry. Is participant currently smoking? No Since previous contact, has participant: Started participation is clinical trail for IPF- No Undergone pulmonary rehab- Yes; started 11/26/17 Enrolled in hospice- No Undergone transplant eval- No Had lung transplant- No Inpatient/urgent encounter- No Review of serious adverse events related to BI medications- None Review of con meds: Will be noted Did Mr. Flores have any hospital encounters since previous contact? No Mr. Flores completed all questionnaires and updated contact information. Blood samples were collected per study protocol from left AC using a 23G butterfly without difficulty @ 11:31. All blood samples were processed and shipped according to study lab manual and [facility] policy. Mr. Flores was informed that she will be contacted by respiratory coordinator regarding future study follow-up. [place] Slip Cover Maker CNOV Observed: 11/29/2017 Status: COMPLETED Source: [place] 9:40 AM [facility] [place] REPOSITORY Office Visit ([facility]) EVAN FLORES ([id number]) 1945 M Date Time Provider Department 11/29/17 9:40 AM [facility] During your visit today, we recorded the following information about you: Temperature Pulse Blood pressure Weight 98 degrees 89/minute 146/71 77.1 kg Krys Mar MD 12/12/2017 11:08 AM Addendum The patient is seen in consultation at the request of RODNEY Spears for an opinion and advise regarding the management of the patient?s osteoporosis. OSTEOPOROSIS AND METABOLIC BONE DISEASE /MALE HISTORY and PHYSICAL Gender: male Ethnicity: Age: [age] year old Chief Complaint: Evaluation for osteoporosis TREATMENTS: Medications: None Calcium: Supplement: Dose: 600 mg/twice a day - started that around sep 2017 and Diet, 680 mg/day Multivitamin: No Vitamin D Intake: 800 units in caltrate with D OSTEOPOROSIS RISK FACTORS Weight ANDlt;127 lbs: No Height: loss: Yes: 1 1/2 inches lost since age 39 Previous Fragility Fractures: vertebral fractures, most recent was T12 and L2 noted on mri in sep 2017- there was no trauma prior to this. he also has compression deformities involving L1, L3, L5. he saw spine. he also reports a history of remote rib fracture. Family History of Osteoporosis: No Family History of Fragility Fractures: None History of parental hip fracture: No Fall History: No MEDICATION RISK FACTORS: a few courses of prednisone in the past for his lungs- not routine use. he also had some steroid tapers for his back pain. Social history: Caffeine: 1-3 c/day Smoking History: Never smoked Alcohol Consumption: about 2 drinks per week Exercise: pulmonary rehab and walking REVIEW OF SYSTEMS: REVIEW OF SYSTEMS: November 29, 2017 CONSTITUTIONAL: Fever: No Fatigue: No Pain: No EYES: Pain: No Redness: No Loss of vision: No Dryness: No EAR, NOSE, MOUTH, THROAT: Nose bleeds: Yes Hearing loss: No Sores in mouth: No Swallowing problems: No Dry mouth: Yes No invasive dental work in the last three months and none planned for the future. he reports he routinely sees dentist and dentition is fine last dental visit was around oct 2017 and was fine CARDIOVASCULAR: Chest pain: No Swelling in the feet or legs: No RESPIRATORY: Shortness of breath: Yes Pain with breathing: No Chronic cough: Yes Coughing up blood: No GASTROINTESTINAL: Heartburn: Yes. takes protonix which helps Nausea: No Diarrhea: No Blood in the stool or black stool: No Abdominal pain: No GENITOURINARY: Blood in urine: No Pain or burning on urination: No] MUSCULOSKELETAL: Joint pain: Yes Joint swelling: No Morning stiffness in joints: Yes Muscle weakness: Yes Back pain: Yes SKIN: Rashes: No Sun sensitive rashes: No Color changes of hands or feet in the cold: No Hair loss: No Nail changes: No NEUROLOGICAL: Headaches: No Dizziness: No Numbness or tingling: Yes Memory loss: No Seizures: No HEMATOLOGIC/LYMPHATIC: Swollen glands: No Anemia: No ALLERGIES/IMMUNOLOGIC: Allergies (other than medications): No Increased susceptibility to infection: No KNOWN MEDICAL CONDITIONS: Diabetes: No Thyroid disease: No High blood pressure: Yes 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 - GERD (gastroesophageal reflux disease) - HTN (hypertension) - Hyperglycemia - IPF (idiopathic pulmonary fibrosis) (HCC) diagnosed December 2013 - Renal insufficiency PAST SURGICAL HISTORY Procedure Laterality Date - INGUINAL HERNIA REPAIR HX Right - LUNG BIOPSY HX 03/2014 - PAST SURGICAL HISTORY OF cardiac stent x 1 Family History: FAMILY HISTORY Problem Relation Age of Onset - Diabetes Mother - Hypertension Mother - Heart Mother heart failure - pulmonary fibrosis [OTHER] Mother sister as well - Hypertension Father - Seizures Father - COPD Father - pulmonary fibosis [OTHER] Sister lung disease,lung transplant - Heart Brother [place], s/p stent - Lung Disease [OTHER] Brother Allergies: Review of patient's allergies indicates no known allergies. Medications: Current Outpatient Prescriptions: CALCIUM CARBONATE/VITAMIN D3 (CALTRATE 600 + D ORAL) Take by mouth. pravastatin (PRAVACHOL) 20 mg tablet Take 1 tablet by mouth daily at bedtime. amLODIPine (NORVASC) 5 mg tablet Take 1 tablet by mouth once daily. pantoprazole DR (PROTONIX) 40 mg tablet Take 1 tablet by mouth once daily. aspirin, enteric coated (ECOTRIN LOW STRENGTH) 81 mg EC tablet Take 1 tablet by mouth once daily. pirfenidone (ESBRIET) 267 mg capsule Take three (3) capsules by mouth three (3) times daily. No current facility-administered medications for this visit. Physical Exam: BP 146/71 (BP Site: Right Arm, BP Position: Sitting, BP Cuff Size: Regular Adult) Pulse 89 Temp 36.7 ?C (98 ?F) (Temporal Artery) Wt 77.1 kg (170 lb) BMI 22.43 kg/m2 GEN: NAD, well groomed. on O2 EYES: conjunctiva and sclera normal. EARS: External ears normal. NOSE/SINUS: Nares normal. Septum midline. Mucosa normal. No drainage or sinus tenderness. THROAT: Normal and no erythema. ORAL: unremarkable NECK: Neck supple, no adenopathy; no thyromegaly HEART: RRR, no murmurs LUNGS: Clear to auscultation. good respiratory effort LYMPH NODES: No cervical lymphadenopathy and no supraclavicular lymphadenopathy. ABDOMEN: Bowel sounds normoactive, no bruits; soft, nontender, without organomegaly or palpable masses. NEURO: Awake, alert and oriented x 3, cranial nerves II-XII grossly intact, reflexes symmetrical, normal gait and no involuntary motions. SKIN: Skin color, texture, turgor normal. No rash. MSK: Swollen joints none Tender joints none Examination of Back: Profile -Dorsal kyphosis TS: mild -No point tenderness to palpation of spine Balance: -Romberg test: Normal -Heel/perez test: Normal -Single leg balance: Normal RELEVANT PREVIOUS INVESTIGATIONS: Calcium Date Value Ref Range Status 11/07/2017 9.2 8.5 - 10.2 mg/dL Final 09/16/2017 9.0 8.5 - 10.2 mg/dL Final 07/16/2017 9.3 8.5 - 10.2 mg/dL Final 06/04/2017 9.5 8.5 - 10.2 mg/dL Final Phosphorus Date Value Ref Range Status 08/30/2015 2.4 (L) 2.5 - 4.5 mg/dL Final 07/26/2015 3.1 2.5 - 4.5 mg/dL Final Alkaline Phosphatase Date Value Ref Range Status 11/07/2017 88 36 - 108 U/L Final 09/16/2017 79 36 - 108 U/L Final 07/16/2017 77 36 - 108 U/L Final 06/04/2017 55 36 - 108 U/L Final PTH, Intact Date Value Ref Range Status 04/03/2016 23 15 - 65 pg/mL Final 08/30/2015 24 15 - 65 pg/mL Final TSH Date Value Ref Range Status 07/26/2015 3.940 0.400 - 5.500 uU/mL Final Vitamin D 25 Hydroxy Date Value Ref Range Status 04/03/2016 36.9 31.0 - 80.0 ng/mL Final Comment: Classification of 25 [place] Vitamin D status: Insufficiency/Moderate Deficiency: ANDlt; or = 30 ng/mL Sufficiency/Optimal Levels: 31 to 80 ng/mL Toxicity: ANDgt; 100 ng/mL Test performed by chemiluminescent immunoassay. 08/30/2015 26.6 (L) 31.0 - 80.0 ng/mL Final Comment: Classification of 25 [place] Vitamin D status: Insufficiency/Moderate Deficiency: ANDlt; or = 30 ng/mL Sufficiency/Optimal Levels: 31 to 80 ng/mL Toxicity: ANDgt; 100 ng/mL Test performed by chemiluminescent immunoassay. Creatinine Date Value Ref Range Status 11/07/2017 1.18 0.73 - 1.22 mg/dL Final 09/16/2017 1.17 0.73 - 1.22 mg/dL Final 07/16/2017 1.28 (H) 0.73 - 1.22 mg/dL Final 06/04/2017 1.37 (H) 0.73 - 1.22 mg/dL Final Protein, Total Date Value Ref Range Status 11/07/2017 7.0 6.3 - 8.0 g/dL Final 09/16/2017 7.1 6.3 - 8.0 g/dL Final 07/16/2017 7.5 6.3 - 8.0 g/dL Final 07/16/2017 8.0 6.0 - 8.4 g/dL Final Albumin Date Value Ref Range Status 11/07/2017 3.9 3.9 - 4.9 g/dL Final 09/16/2017 3.8 (L) 3.9 - 4.9 g/dL Final 07/16/2017 4.2 3.9 - 4.9 g/dL Final 06/04/2017 4.1 3.9 - 4.9 g/dL Final Alpha 1 Globulin Date Value Ref Range Status 07/16/2017 0.25 0.18 - 0.31 gm/dL Final 07/18/2016 0.21 0.18 - 0.31 gm/dL Final 01/17/2016 0.22 0.18 - 0.31 gm/dL Final 06/21/2015 0.27 0.18 - 0.31 gm/dL Final Alpha 2 Globulin Date Value Ref Range Status 07/16/2017 0.91 0.52 - 0.97 gm/dL Final 07/18/2016 0.71 0.52 - 0.97 gm/dL Final 01/17/2016 0.69 0.52 - 0.97 gm/dL Final 06/21/2015 0.69 0.52 - 0.97 gm/dL Final Beta Globulin Date Value Ref Range Status 07/16/2017 1.19 0.84 - 1.36 gm/dL Final 07/18/2016 1.16 0.84 - 1.36 gm/dL Final 01/17/2016 1.05 0.84 - 1.36 gm/dL Final 06/21/2015 1.04 0.84 - 1.36 gm/dL Final Gamma Globulin Date Value Ref Range Status 07/16/2017 1.36 0.70 - 1.44 gm/dL Final 07/18/2016 1.20 0.70 - 1.44 gm/dL Final 01/17/2016 1.26 0.70 - 1.44 gm/dL Final 06/21/2015 1.16 0.70 - 1.44 gm/dL Final Interpretation (Prot Electro) Date Value Ref Range Status 07/16/2017 SEE COMMENT Final Comment: An M protein is identified on protein electrophoresis. See separate immunofixation report for characterization of the M protein. 07/18/2016 SEE COMMENT Final Comment: An M protein is identified on protein electrophoresis. See separate immunofixation report for characterization of the M protein. 01/17/2016 SEE COMMENT Final Comment: An M protein is identified on protein electrophoresis. See separate immunofixation report for characterization of the M protein. 06/21/2015 SEE COMMENT Final Comment: An M protein is identified on protein electrophoresis. See separate immunofixation report for characterization of the M protein. MPA IgA, Serum Date Value Ref Range Status 07/16/2017 562 (H) 78 - 391 mg/dL Final 07/18/2016 621 (H) 78 - 391 mg/dL Final 01/17/2016 597 (H) 78 - 391 mg/dL Final 06/21/2015 542 (H) 78 - 391 mg/dL Final MPA IgG, Serum Date Value Ref Range Status 07/16/2017 1030 717 - 1411 mg/dL Final 07/18/2016 1030 717 - 1411 mg/dL Final 01/17/2016 1200 717 - 1411 mg/dL Final 06/21/2015 1070 717 - 1411 mg/dL Final MPA IgM, Serum Date Value Ref Range Status 07/16/2017 148 53 - 334 mg/dL Final 07/18/2016 151 53 - 334 mg/dL Final 01/17/2016 155 53 - 334 mg/dL Final 06/21/2015 164 53 - 334 mg/dL Final MPA Purcell, Serum Date Value Ref Range Status 07/16/2017 980 534 - 1267 mg/dL Final 07/18/2016 949 534 - 1267 mg/dL Final 01/17/2016 835 534 - 1267 mg/dL Final 06/21/2015 885 534 - 1267 mg/dL Final MPA Lambda, Serum Date Value Ref Range Status 07/16/2017 654 (H) 253 - 653 mg/dL Final 07/18/2016 646 253 - 653 mg/dL Final 01/17/2016 663 (H) 253 - 653 mg/dL Final 06/21/2015 642 253 - 653 mg/dL Final MPA Purcell/Lambda Ratio Date Value Ref Range Status 07/16/2017 1.50 1 - 3 Final 07/18/2016 1.47 1 - 3 Final 01/17/2016 1.26 1 - 3 Final 06/21/2015 1.38 1 - 3 Final Interpretation (MPA) Date Value Ref Range Status 07/16/2017 SEE COMMENT Final Comment: Atypical restricted bands are present in the IgM and kappa regions. Consistent with IgM kappa monoclonal gammopathy. 07/18/2016 SEE COMMENT Final Comment: Poorly defined region of restricted mobility in IgM and kappa lanes. Pattern is less well defined or fainter than typically seen in monoclonal gammopathy. This could represent either an atypical presentation of polyclonal immunoglobulins or the presence of a low level IgM kappa monoclonal gammopathy. If clinically indicated, urine monoclonal protein analysis and serum free light chain measurements are recommended to evaluate further for monoclonal gammopathy. Clinical correlation is necessary. 01/17/2016 SEE COMMENT Final Comment: Poorly defined region of restricted mobility in IgM and kappa lanes. Pattern is less well defined or fainter than typically seen in monoclonal gammopathy. This could represent either an atypical presentation of polyclonal immunoglobulins or the presence of a low level IgM kappa monoclonal gammopathy. If clinically indicated, urine monoclonal protein analysis and serum free light chain measurements are recommended to evaluate further for monoclonal gammopathy. Clinical correlation is necessary. 06/21/2015 SEE COMMENT Final Comment: Poorly defined region of restricted mobility in IgM and kappa lanes. Pattern is less well defined or fainter than typically seen in monoclonal gammopathy. This could represent either an atypical presentation of polyclonal immunoglobulins or the presence of a low level IgM kappa monoclonal gammopathy. If clinically indicated, urine monoclonal protein analysis and serum free light chain measurements are recommended to evaluate further for monoclonal gammopathy. Clinical correlation is necessary. Component Latest Ref Rng ANDamp; Units 11/07/2017 Protein, Total 6.3 - 8.0 g/dL 7.0 Albumin 3.9 - 4.9 g/dL 3.9 Calcium 8.5 - 10.2 mg/dL 9.2 Bilirubin, Total 0.2 - 1.3 mg/dL ANDlt;0.2 (L) Alkaline Phosphatase 36 - 108 U/L 88 AST 14 - 40 U/L 23 Glucose 74 - 99 mg/dL 78 BUN 9 - 24 mg/dL 12 Creatinine 0.73 - 1.22 mg/dL 1.18 Sodium 136 - 144 mmol/L 142 Potassium 3.7 - 5.1 mmol/L 4.2 Chloride 97 - 105 mmol/L 101 CO2 22 - 30 mmol/L 32 (H) Anion Gap 9 - 18 mmol/L 9 ALT 10 - 54 U/L 7 (L) eGFR- ANDgt;60 eGFR-All Other Races . ANDgt;60 BONE DENSITY RESULTS: DATE OF EXAM: Oct 28 2017 ?8:44AM ? WRB ? 0870 ?- ?BD DXA - FOREARM SKELETON ?- LEFT / PROCEDURE REASON: closed compression fracture of second lumbar vertebra ?? ? * * * * Physician Interpretation * * * * ?PROCEDURE: ?BD DXA - AXIAL SKELETON, BD DXA - FOREARM SKELETON INDICATION: Wedge compression fracture of second lumbar vertebra, initial encounter for closed fracture Wedge compression fracture of unspecified thoracic vertebra, initial encounter for closed fracture Low back pain TECHNIQUE: Low dose AP left forearm and hip images COMPARISON: LEFT HIP: ?The bone mineral density of the total region of the hip is 1.026 grams per square centimeter which yields a T-score of 0.0. ? ?. LEFT FEMORAL NECK: ?The bone mineral density of the femoral neck is 0.849 grams per square centimeter which yields a T-score of -0.6. ? ?. RIGHT HIP: ? The bone mineral density of the total region of the hip is 1.048 grams per square centimeter which yields a T-score of 0.1. ? ?. RIGHT FEMORAL NECK: ?The bone mineral density of the femoral neck is 0.894 grams per square centimeter which yields a T-score of -0.3. ? ?. LEFT FOREARM: ?The bone mineral density of the radius 1/3 is 0.751 grams per square centimeter which yields a T-score of -1.2 . ? ? mri 10/01/17 IMPRESSION: Interval development of acute/subacute compression deformities at T12 and L2 compared to 06/10/2017. ?No significant bony retropulsion or canal stenosis. Multilevel remote compression deformities involving L1, L3, L5, not significantly changed from 06/10/2017. Multilevel degenerative changes, worst at L3-L4 and L4-L5. IMPRESSION: Osteoporosis on the basis of compression fractures. His lowest T score is in his forearm and is -1.2 History of vitamin D deficiency Monoclonal gammopathy- follows with hematology Pulmonary Fibrosis- follows with pulmonary History of renal insufficiency- though his most recent GFR is ANDgt;60 PLAN: Osteoporosis was discussed with him and information to read was given to him. Calcium 1200 to 1500 mg daily recommended- if cannot achieve this through diet, then calcium citrate supplement recommended. He gets about 680 mg of calcium in his diet daily. Thus, he will decrease his calcium supplement and take about 600 mg daily. Continue vitamin D- will check level and give further dosing recommendations. Given that he has had compression fractures- treatment for osteoporosis is recommended pending labs. Will review labs prior to making further decisions regarding therapy. Will check: Office Visit on 11/29/17 -CALCIUM TOTAL BLD -CREATININE BLD -CROSS-LINK N-TELOPEP -PTH INTACT BLD -TSH BLD -VITAMIN D 25 HYDROXY -PROCOLLAGEN TYPE 1 Weight bearing exercise as tolerated recommended Fall precautions discussed Repeat bmd on same machine as prior 2 years from last bmd (around oct 2019) recommended I will contact him with the above lab results Continued f/u with PCP for routine health maintenance and to discuss the answers to the Knowledge Program patient questionnaire advised. rba of meds discussed. My findings and final recommendations will be communicated to the requesting health care provider by way of the shared medical record for internal providers or letter via the [employer] for external providers. Thank you for allowing me to participate in the care of your patient. MD Krys Mcgowan MD 11/29/2017 10:21 AM Signed calcium citrate Referring Provider: LUIS MANUEL HER [[id number]] Allergies As of Date: 11/29/2017 (No Known Allergies) Date Reviewed: 11/29/2017 Reviewed by: Krys Mar - Fully Assessed Primary Visit Diagnosis:Senile osteoporosis [M81.0] Other Visit Diagnoses:Gammopathy, monoclonal [D47.2] Encounter for long-term (current) use of medications [Z79.899] IPF (idiopathic pulmonary fibrosis) ([facility]) [J84.112] Compression fracture of vertebra, sequela [M48.50XS] Vitamin D deficiency [E55.9] Order(s):CALCIUM TOTAL BLD [SQCA] Order #: [id number] FUTURE CREATININE BLD [SQCRET] Order #: [id number] FUTURE CROSS-LINK N-TELOPEP [SQUNTX2] Order #: [id number] FUTURE PTH INTACT BLD [SQPTHI] Order #: [id number] FUTURE TSH BLD [SQTSH] Order #: [id number] FUTURE VITAMIN D 25 HYDROXY [SQVITD] Order #: [id number] FUTURE PROCOLLAGEN TYPE 1 [SQPROCOL] Order #: [id number] FUTURE Prescriptions as of 11/29/2017 Sig: CALTRATE 600 + D ORAL Take by mouth. PRAVASTATIN 20 MG TABLET Take 1 tablet by mouth daily * AMLODIPINE 5 MG TABLET Take 1 tablet by mouth once d* PANTOPRAZOLE 40 MG TABLET,DEL* Take 1 tablet by mouth once d* ASPIRIN 81 MG TABLET,DELAYED * Take 1 tablet by mouth once d* PIRFENIDONE 267 MG CAPSULE Take three (3) capsules by mo* Problem List As Of Date 11/29/2017 Noted Resolved IPF (idiopathic pulmonary fibrosis) (HCC) [J84.*INVALID FOR* CKD (chronic kidney disease) [N18.9] INVALID FOR* Hoarse voice quality [R49.0] INVALID FOR* GERD (gastroesophageal reflux disease) [K21.9] INVALID FOR* HTN (hypertension) [I10] INVALID FOR*11/07/2016 Gammopathy, 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 BPH (benign prostatic hyperplasia) [N40.0] INVALID FOR* Family history of ischemic heart disease [Z82.4*INVALID FOR* Coronary artery disease involving tyonek dougherty*INVALID FOR* More... 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] INVALID FOR* Acute midline low back pain [M54.5] INVALID FOR* Chronic hypoxemic respiratory failure (HCC) [J9*INVALID FOR* Pulmonary infiltrate [R91.8] INVALID FOR* Abnormal weight loss [R63.4] INVALID FOR* Other instructions from your clinician: calcium citrate Follow-up and Disposition History Recorded Letter Text Rheumatology Injection Prior Authorization Patient Name: Evan Flores [facility] Number: [id number] Date of : 1945 Current Insurance: Payor: MEDICARE / Plan: MEDICARE A AND B / Product Type: Medicare / Hyalgan, Synvisc Supartz and Euflexxa Injections require predetermination for medical necessity from most insurance companies (other than Medicare whose approved diagnoses are listed on this form). Prior to scheduling, verification is required to determine if authorization is needed. Please submit this form to the appointment scheduling office. Ordering Physician: Krys Mar MD Date: 12/27/17 Injection:Prolia 60mg [id number] Procedure Code: 47015 Primary Diagnosis: M81.0 Injection:Prolia 60mg [id number] Procedure Code: 02847 Primary Diagnosis: M81.0 Date of Last Oral Exam: 2017 : No pain, oral exam: Normal Initial injections followed by treatment @ 6 month intervals and thereafter for approximately 1-5 years. Age related Osteoporosis w/o current pathological fracture including PMOP and Senile OP w/o current pathological fracture It is also approved for treatment to increase bone mass in MEN with osteoporosis at high risk for fracture. For MEN, please also select one of the following: History of osteoporotic fracture and Multiple risk factors for fracture he has history of renal insufficiency. 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 Blair Diagnosis: IPF Phase: 2 Session Number: 2 Subjective Data: Patient reports I am feeling fine today, no unusual shortness of breath or chest discomfort. I am ready for exercise. Objective Data: Emergency room visits since your last visit. No Medication changes since last visit. No Today's exercise session was comprised of a warm-up, breathing technique practice, lower and upper body aerobic endurance training, upper and lower body resistance training and lower body stretching/flexibility training as a cool down. Patient tolerated physician prescribed exercise workload. Vitals WNL for patient. This is a hospital based pulmonary rehab program. Patient working towards exercise goals by sustaining exercise intensity and duration. Patient working towards education goal by attending education sessions in pulmonary rehabilitation. Will educate on disease and symptom management as needed. The education topic provided to the patient today was Stress management. The patient received this education by video, staff/patient discussion and receiving of an educational hand-out. Patient has verbalized understanding of education topic and the relation to disease managment. Patient's Daily Exercise Log will be scanned into [employer] once it is completed. These can be viewed by going under the scanned documents tab and looking for documents labeled Other respiratory therapy. Daily Exercise Logs contain exercise data such as, but not limited to modality, intensity, duration and frequency of exercise, along with vital signs pre-, during, and post-exercise. Refer to patient's paper medical record for pulse oximetry data, physician prescribed Individualized Treatment Plan, and education sessions covered. Total time of visit 80 minutes. Thong Marmolejo,Ex Phys HOSP Observed: 11/28/2017 Status: COMPLETED Source: [place] 12:00 PM CLINIC OTHER CAMPUS REPOSITORY Billing Encounter ([facility]) EVAN FLORES ([id number]) 1945 M Date Time Provider Department 11/28/17 12:00 PM CARD PULM REHAB PHASE 2 [facility] During your visit today, we recorded the following information about you: Referring Provider: KIRTI ARANGO [[id number]] Allergies As of Date: 11/28/2017 (No Known Allergies) Date Reviewed: 11/08/2017 Reviewed by: Shannan Jeffries Ma - Fully Assessed Primary Visit Diagnosis:IPF (idiopathic pulmonary fibrosis) ([facility]) [J84.112] Prescriptions as of 11/28/2017 Sig: CALTRATE 600 + D ORAL Take by mouth. PRAVASTATIN 20 MG TABLET Take 1 tablet by mouth daily * AMLODIPINE 5 MG TABLET Take 1 tablet by mouth once d* PANTOPRAZOLE 40 MG TABLET,DEL* Take 1 tablet by mouth once d* ASPIRIN 81 MG TABLET,DELAYED * Take 1 tablet by mouth once d* PIRFENIDONE 267 MG CAPSULE Take three (3) capsules by mo* Problem List As Of Date 11/28/2017 Noted Resolved IPF (idiopathic pulmonary fibrosis) ([facility]) [J84.*INVALID FOR* CKD (chronic kidney disease) [N18.9] INVALID FOR* Hoarse voice quality [R49.0] INVALID FOR* GERD (gastroesophageal reflux disease) [K21.9] INVALID FOR* HTN (hypertension) [I10] INVALID FOR*11/07/2016 Gammopathy, 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 BPH (benign prostatic hyperplasia) [N40.0] INVALID FOR* Family history of ischemic heart disease [Z82.4*INVALID FOR* Coronary artery disease involving tyonek dougherty*INVALID FOR* More... 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] INVALID FOR* Acute midline low back pain [M54.5] INVALID FOR* Chronic hypoxemic respiratory failure (HCC) [J9*INVALID FOR* Pulmonary infiltrate [R91.8] INVALID FOR* Abnormal weight loss [R63.4] INVALID FOR* Encounter Status:Closed by JESSICA LUCIANO on 11/28/17 HOSP Observed: 11/28/2017 Status: COMPLETED Source: [place] 12:00 AM CLINIC OTHER [place] REPOSITORY Patient Update [facility] EVAN FLORES ([id number]) 1945 M Date Time Provider Department 11/28/17 THONG MARMOLEJO (EX PHYS) [facility] During your visit today, we recorded the following information about you: Hardik Jo 11/28/2017 1:02 PM Signed Pulmonary Rehabilitation [facility] Program Supervising Physician: Tejas Blair Diagnosis: IPF Phase: 2 Session Number: 2 Subjective Data: Patient reports ANDquot;I am feeling fine today, no unusual shortness of breath or chest discomfort. I am ready for exercise.ANDquot; Objective Data: Emergency room visits since your last visit. No Medication changes since last visit. No Today's exercise session was comprised of a warm-up, breathing technique practice, lower and upper body aerobic endurance training, upper and lower body resistance training and lower body stretching/flexibility training as a cool down. Patient tolerated physician prescribed exercise workload. Vitals WNL for patient. This is a hospital based pulmonary rehab program. Patient working towards exercise goals by sustaining exercise intensity and duration. Patient working towards education goal by attending education sessions in pulmonary rehabilitation. Will educate on disease and symptom management as needed. The education topic provided to the patient today was Stress management. The patient received this education by video, staff/patient discussion and receiving of an educational hand-out. Patient has verbalized understanding of education topic and the relation to disease managment. Patient's Daily Exercise Log will be scanned into [employer] once it is completed. These can be viewed by going under the ANDquot;scanned documentsANDquot; tab and looking for documents labeled ANDquot;Other respiratory therapy.ANDquot; Daily Exercise Logs contain exercise data such as, but not limited to modality, intensity, duration and frequency of exercise, along with vital signs pre-, during, and post-exercise. Refer to patient's paper medical record for pulse oximetry data, physician prescribed Individualized Treatment Plan, and education sessions covered. Total time of visit 80 minutes. Thong Marmolejo,Ex Phys Allergies As of Date: 11/28/2017 (No Known Allergies) Date Reviewed: 11/08/2017 Reviewed by: Shannan Jeffries Ma - Fully Assessed Prescriptions as of 11/28/2017 Sig: CALTRATE 600 + D ORAL Take by mouth. PRAVASTATIN 20 MG TABLET Take 1 tablet by mouth daily * AMLODIPINE 5 MG TABLET Take 1 tablet by mouth once d* PANTOPRAZOLE 40 MG TABLET,DEL* Take 1 tablet by mouth once d* ASPIRIN 81 MG TABLET,DELAYED * Take 1 tablet by mouth once d* PIRFENIDONE 267 MG CAPSULE Take three (3) capsules by mo* Problem List As Of Date 11/28/2017 Noted Resolved IPF (idiopathic pulmonary fibrosis) (HCC) [J84.*INVALID FOR* CKD (chronic kidney disease) [N18.9] INVALID FOR* Hoarse voice quality [R49.0] INVALID FOR* GERD (gastroesophageal reflux disease) [K21.9] INVALID FOR* HTN (hypertension) [I10] INVALID FOR*11/07/2016 Gammopathy, 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 BPH (benign prostatic hyperplasia) [N40.0] INVALID FOR* Family history of ischemic heart disease [Z82.4*INVALID FOR* Coronary artery disease involving tyonek dougherty*INVALID FOR* More... 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] INVALID FOR* Acute midline low back pain [M54.5] INVALID FOR* Chronic hypoxemic respiratory failure (HCC) [J9*INVALID FOR* Pulmonary infiltrate [R91.8] INVALID FOR* Abnormal weight loss [R63.4] INVALID FOR* Encounter Status:Closed by THONG MARMOLEJO on 11/28/17 PROGRESS Observed: 11/27/2017 Status: COMPLETED Source: [place] 2:51 PM [facility] [place] REPOSITORY HNO ID: [id number] Author: Krys Han File Service: (none) Author Type: Physician Type: Progress Notes Filed: 12/12/2017 11:08 AM Note Text: The patient is seen in consultation at the request of RODNEY Spears for an opinion and advise regarding the management of the patient?s osteoporosis. OSTEOPOROSIS AND METABOLIC BONE DISEASE /MALE HISTORY and PHYSICAL Gender: male Ethnicity: Age: [age] year old Chief Complaint: Evaluation for osteoporosis TREATMENTS: Medications: None Calcium: Supplement: Dose: 600 mg/twice a day - started that around sep 2017 and Diet, 680 mg/day Multivitamin: No Vitamin D Intake: 800 units in caltrate with D OSTEOPOROSIS RISK FACTORS Weight <127 lbs: No Height: loss: Yes: 1 1/2 inches lost since age 39 Previous Fragility Fractures: vertebral fractures, most recent was T12 and L2 noted on mri in sep 2017- there was no trauma prior to this. he also has compression deformities involving L1, L3, L5. he saw spine. he also reports a history of remote rib fracture. Family History of Osteoporosis: No Family History of Fragility Fractures: None History of parental hip fracture: No Fall History: No MEDICATION RISK FACTORS: a few courses of prednisone in the past for his lungs- not routine use. he also had some steroid tapers for his back pain. Social history: Caffeine: 1-3 c/day Smoking History: Never smoked Alcohol Consumption: about 2 drinks per week Exercise: pulmonary rehab and walking REVIEW OF SYSTEMS: LUIS REVIEW OF SYSTEMS: November 29, 2017 CONSTITUTIONAL: Fever: No Fatigue: No Pain: No EYES: Pain: No Redness: No Loss of vision: No Dryness: No EAR, NOSE, MOUTH, THROAT: Nose bleeds: Yes Hearing loss: No Sores in mouth: No Swallowing problems: No Dry mouth: Yes No invasive dental work in the last three months and none planned for the future. he reports he routinely sees dentist and dentition is fine last dental visit was around oct 2017 and was fine CARDIOVASCULAR: Chest pain: No Swelling in the feet or legs: No RESPIRATORY: Shortness of breath: Yes Pain with breathing: No Chronic cough: Yes Coughing up blood: No GASTROINTESTINAL: Heartburn: Yes. takes protonix which helps Nausea: No Diarrhea: No Blood in the stool or black stool: No Abdominal pain: No GENITOURINARY: Blood in urine: No Pain or burning on urination: No] MUSCULOSKELETAL: Joint pain: Yes Joint swelling: No Morning stiffness in joints: Yes Muscle weakness: Yes Back pain: Yes SKIN: Rashes: No Sun sensitive rashes: No Color changes of hands or feet in the cold: No Hair loss: No Nail changes: No NEUROLOGICAL: Headaches: No Dizziness: No Numbness or tingling: Yes Memory loss: No Seizures: No HEMATOLOGIC/LYMPHATIC: Swollen glands: No Anemia: No ALLERGIES/IMMUNOLOGIC: Allergies (other than medications): No Increased susceptibility to infection: No KNOWN MEDICAL CONDITIONS: Diabetes: No Thyroid disease: No High blood pressure: Yes PAST MEDICAL HISTORY Diagnosis Date - Back pain lower lumbar pain - Concussion 02/2011 AND 09/2011 - Gammopathy, 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 - GERD (gastroesophageal reflux disease) - HTN (hypertension) - Hyperglycemia - IPF (idiopathic pulmonary fibrosis) (HCC) diagnosed December 2013 - Renal insufficiency PAST SURGICAL HISTORY Procedure Laterality Date - INGUINAL HERNIA REPAIR HX Right - LUNG BIOPSY HX 03/2014 - PAST SURGICAL HISTORY OF cardiac stent x 1 Family History: FAMILY HISTORY Problem Relation Age of Onset - Diabetes Mother - Hypertension Mother - Heart Mother heart failure - pulmonary fibrosis [OTHER] Mother sister as well - Hypertension Father - Seizures Father - COPD Father - pulmonary fibosis [OTHER] Sister lung disease,lung transplant - Heart Brother [place], s/p stent - Lung Disease [OTHER] Brother Allergies: Review of patient's allergies indicates no known allergies. Medications: Current Outpatient Prescriptions: CALCIUM CARBONATE/VITAMIN D3 (CALTRATE 600 + D ORAL) Take by mouth. pravastatin (PRAVACHOL) 20 mg tablet Take 1 tablet by mouth daily at bedtime. amLODIPine (NORVASC) 5 mg tablet Take 1 tablet by mouth once daily. pantoprazole DR (PROTONIX) 40 mg tablet Take 1 tablet by mouth once daily. aspirin, enteric coated (ECOTRIN LOW STRENGTH) 81 mg EC tablet Take 1 tablet by mouth once daily. pirfenidone (ESBRIET) 267 mg capsule Take three (3) capsules by mouth three (3) times daily. No current facility-administered medications for this visit. Physical Exam: BP 146/71 (BP Site: Right Arm, BP Position: Sitting, BP Cuff Size: Regular Adult) Pulse 89 Temp 36.7 ?C (98 ?F) (Temporal Artery) Wt 77.1 kg (170 lb) BMI 22.43 kg/m2 GEN: NAD, well groomed. on O2 EYES: conjunctiva and sclera normal. EARS: External ears normal. NOSE/SINUS: Nares normal. Septum midline. Mucosa normal. No drainage or sinus tenderness. THROAT: Normal and no erythema. ORAL: unremarkable NECK: Neck supple, no adenopathy; no thyromegaly HEART: RRR, no murmurs LUNGS: Clear to auscultation. good respiratory effort LYMPH NODES: No cervical lymphadenopathy and no supraclavicular lymphadenopathy. ABDOMEN: Bowel sounds normoactive, no bruits; soft, nontender, without organomegaly or palpable masses. NEURO: Awake, alert and oriented x 3, cranial nerves II-XII grossly intact, reflexes symmetrical, normal gait and no involuntary motions. SKIN: Skin color, texture, turgor normal. No rash. MSK: Swollen joints none Tender joints none Examination of Back: Profile -Dorsal kyphosis TS: mild -No point tenderness to palpation of spine Balance: -Romberg test: Normal -Heel/perez test: Normal -Single leg balance: Normal RELEVANT PREVIOUS INVESTIGATIONS: Calcium Date Value Ref Range Status 11/07/2017 9.2 8.5 - 10.2 mg/dL Final 09/16/2017 9.0 8.5 - 10.2 mg/dL Final 07/16/2017 9.3 8.5 - 10.2 mg/dL Final 06/04/2017 9.5 8.5 - 10.2 mg/dL Final Phosphorus Date Value Ref Range Status 08/30/2015 2.4 (L) 2.5 - 4.5 mg/dL Final 07/26/2015 3.1 2.5 - 4.5 mg/dL Final Alkaline Phosphatase Date Value Ref Range Status 11/07/2017 88 36 - 108 U/L Final 09/16/2017 79 36 - 108 U/L Final 07/16/2017 77 36 - 108 U/L Final 06/04/2017 55 36 - 108 U/L Final PTH, Intact Date Value Ref Range Status 04/03/2016 23 15 - 65 pg/mL Final 08/30/2015 24 15 - 65 pg/mL Final TSH Date Value Ref Range Status 07/26/2015 3.940 0.400 - 5.500 uU/mL Final Vitamin D 25 Hydroxy Date Value Ref Range Status 04/03/2016 36.9 31.0 - 80.0 ng/mL Final Comment: Classification of 25 OH Vitamin D status: Insufficiency/Moderate Deficiency: < or = 30 ng/mL Sufficiency/Optimal Levels: 31 to 80 ng/mL Toxicity: > 100 ng/mL Test performed by chemiluminescent immunoassay. 08/30/2015 26.6 (L) 31.0 - 80.0 ng/mL Final Comment: Classification of 25 OH Vitamin D status: Insufficiency/Moderate Deficiency: < or = 30 ng/mL Sufficiency/Optimal Levels: 31 to 80 ng/mL Toxicity: > 100 ng/mL Test performed by chemiluminescent immunoassay. Creatinine Date Value Ref Range Status 11/07/2017 1.18 0.73 - 1.22 mg/dL Final 09/16/2017 1.17 0.73 - 1.22 mg/dL Final 07/16/2017 1.28 (H) 0.73 - 1.22 mg/dL Final 06/04/2017 1.37 (H) 0.73 - 1.22 mg/dL Final Protein, Total Date Value Ref Range Status 11/07/2017 7.0 6.3 - 8.0 g/dL Final 09/16/2017 7.1 6.3 - 8.0 g/dL Final 07/16/2017 7.5 6.3 - 8.0 g/dL Final 07/16/2017 8.0 6.0 - 8.4 g/dL Final Albumin Date Value Ref Range Status 11/07/2017 3.9 3.9 - 4.9 g/dL Final 09/16/2017 3.8 (L) 3.9 - 4.9 g/dL Final 07/16/2017 4.2 3.9 - 4.9 g/dL Final 06/04/2017 4.1 3.9 - 4.9 g/dL Final Alpha 1 Globulin Date Value Ref Range Status 07/16/2017 0.25 0.18 - 0.31 gm/dL Final 07/18/2016 0.21 0.18 - 0.31 gm/dL Final 01/17/2016 0.22 0.18 - 0.31 gm/dL Final 06/21/2015 0.27 0.18 - 0.31 gm/dL Final Alpha 2 Globulin Date Value Ref Range Status 07/16/2017 0.91 0.52 - 0.97 gm/dL Final 07/18/2016 0.71 0.52 - 0.97 gm/dL Final 01/17/2016 0.69 0.52 - 0.97 gm/dL Final 06/21/2015 0.69 0.52 - 0.97 gm/dL Final Beta Globulin Date Value Ref Range Status 07/16/2017 1.19 0.84 - 1.36 gm/dL Final 07/18/2016 1.16 0.84 - 1.36 gm/dL Final 01/17/2016 1.05 0.84 - 1.36 gm/dL Final 06/21/2015 1.04 0.84 - 1.36 gm/dL Final Gamma Globulin Date Value Ref Range Status 07/16/2017 1.36 0.70 - 1.44 gm/dL Final 07/18/2016 1.20 0.70 - 1.44 gm/dL Final 01/17/2016 1.26 0.70 - 1.44 gm/dL Final 06/21/2015 1.16 0.70 - 1.44 gm/dL Final Interpretation (Prot Electro) Date Value Ref Range Status 07/16/2017 SEE COMMENT Final Comment: An M protein is identified on protein electrophoresis. See separate immunofixation report for characterization of the M protein. 07/18/2016 SEE COMMENT Final Comment: An M protein is identified on protein electrophoresis. See separate immunofixation report for characterization of the M protein. 01/17/2016 SEE COMMENT Final Comment: An M protein is identified on protein electrophoresis. See separate immunofixation report for characterization of the M protein. 06/21/2015 SEE COMMENT Final Comment: An M protein is identified on protein electrophoresis. See separate immunofixation report for characterization of the M protein. MPA IgA, Serum Date Value Ref Range Status 07/16/2017 562 (H) 78 - 391 mg/dL Final 07/18/2016 621 (H) 78 - 391 mg/dL Final 01/17/2016 597 (H) 78 - 391 mg/dL Final 06/21/2015 542 (H) 78 - 391 mg/dL Final MPA IgG, Serum Date Value Ref Range Status 07/16/2017 1030 717 - 1411 mg/dL Final 07/18/2016 1030 717 - 1411 mg/dL Final 01/17/2016 1200 717 - 1411 mg/dL Final 06/21/2015 1070 717 - 1411 mg/dL Final MPA IgM, Serum Date Value Ref Range Status 07/16/2017 148 53 - 334 mg/dL Final 07/18/2016 151 53 - 334 mg/dL Final 01/17/2016 155 53 - 334 mg/dL Final 06/21/2015 164 53 - 334 mg/dL Final MPA Purcell, Serum Date Value Ref Range Status 07/16/2017 980 534 - 1267 mg/dL Final 07/18/2016 949 534 - 1267 mg/dL Final 01/17/2016 835 534 - 1267 mg/dL Final 06/21/2015 885 534 - 1267 mg/dL Final MPA Lambda, Serum Date Value Ref Range Status 07/16/2017 654 (H) 253 - 653 mg/dL Final 07/18/2016 646 253 - 653 mg/dL Final 01/17/2016 663 (H) 253 - 653 mg/dL Final 06/21/2015 642 253 - 653 mg/dL Final MPA Purcell/Lambda Ratio Date Value Ref Range Status 07/16/2017 1.50 1 - 3 Final 07/18/2016 1.47 1 - 3 Final 01/17/2016 1.26 1 - 3 Final 06/21/2015 1.38 1 - 3 Final Interpretation (MPA) Date Value Ref Range Status 07/16/2017 SEE COMMENT Final Comment: Atypical restricted bands are present in the IgM and kappa regions. Consistent with IgM kappa monoclonal gammopathy. 07/18/2016 SEE COMMENT Final Comment: Poorly defined region of restricted mobility in IgM and kappa lanes. Pattern is less well defined or fainter than typically seen in monoclonal gammopathy. This could represent either an atypical presentation of polyclonal immunoglobulins or the presence of a low level IgM kappa monoclonal gammopathy. If clinically indicated, urine monoclonal protein analysis and serum free light chain measurements are recommended to evaluate further for monoclonal gammopathy. Clinical correlation is necessary. 01/17/2016 SEE COMMENT Final Comment: Poorly defined region of restricted mobility in IgM and kappa lanes. Pattern is less well defined or fainter than typically seen in monoclonal gammopathy. This could represent either an atypical presentation of polyclonal immunoglobulins or the presence of a low level IgM kappa monoclonal gammopathy. If clinically indicated, urine monoclonal protein analysis and serum free light chain measurements are recommended to evaluate further for monoclonal gammopathy. Clinical correlation is necessary. 06/21/2015 SEE COMMENT Final Comment: Poorly defined region of restricted mobility in IgM and kappa lanes. Pattern is less well defined or fainter than typically seen in monoclonal gammopathy. This could represent either an atypical presentation of polyclonal immunoglobulins or the presence of a low level IgM kappa monoclonal gammopathy. If clinically indicated, urine monoclonal protein analysis and serum free light chain measurements are recommended to evaluate further for monoclonal gammopathy. Clinical correlation is necessary. Component Latest Ref Rng AND Units 11/07/2017 Protein, Total 6.3 - 8.0 g/dL 7.0 Albumin 3.9 - 4.9 g/dL 3.9 Calcium 8.5 - 10.2 mg/dL 9.2 Bilirubin, Total 0.2 - 1.3 mg/dL <0.2 (L) Alkaline Phosphatase 36 - 108 U/L 88 AST 14 - 40 U/L 23 Glucose 74 - 99 mg/dL 78 BUN 9 - 24 mg/dL 12 Creatinine 0.73 - 1.22 mg/dL 1.18 Sodium 136 - 144 mmol/L 142 Potassium 3.7 - 5.1 mmol/L 4.2 Chloride 97 - 105 mmol/L 101 CO2 22 - 30 mmol/L 32 (H) Anion Gap 9 - 18 mmol/L 9 ALT 10 - 54 U/L 7 (L) eGFR- >60 eGFR-All Other Races . >60 BONE DENSITY RESULTS: DATE OF EXAM: Oct 28 2017 ?8:44AM ? WRB ? 0870 ?- ?BD DXA - FOREARM SKELETON ?- LEFT / PROCEDURE REASON: closed compression fracture of second lumbar vertebra ?? ? * * * * Physician Interpretation * * * * ?PROCEDURE: ?BD DXA - AXIAL SKELETON, BD DXA - FOREARM SKELETON INDICATION: Wedge compression fracture of second lumbar vertebra, initial encounter for closed fracture Wedge compression fracture of unspecified thoracic vertebra, initial encounter for closed fracture Low back pain TECHNIQUE: Low dose AP left forearm and hip images COMPARISON: LEFT HIP: ?The bone mineral density of the total region of the hip is 1.026 grams per square centimeter which yields a T-score of 0.0. ? ?. LEFT FEMORAL NECK: ?The bone mineral density of the femoral neck is 0.849 grams per square centimeter which yields a T-score of -0.6. ? ?. RIGHT HIP: ? The bone mineral density of the total region of the hip is 1.048 grams per square centimeter which yields a T-score of 0.1. ? ?. RIGHT FEMORAL NECK: ?The bone mineral density of the femoral neck is 0.894 grams per square centimeter which yields a T-score of -0.3. ? ?. LEFT FOREARM: ?The bone mineral density of the radius 10/02 is 0.751 grams per square centimeter which yields a T-score of -1.2 . ? ? mri 10/01/17 IMPRESSION: Interval development of acute/subacute compression deformities at T12 and L2 compared to 06/10/2017. ?No significant bony retropulsion or canal stenosis. Multilevel remote compression deformities involving L1, L3, L5, not significantly changed from 06/10/2017. Multilevel degenerative changes, worst at L3-L4 and L4-L5. IMPRESSION: Osteoporosis on the basis of compression fractures. His lowest T score is in his forearm and is -1.2 History of vitamin D deficiency Monoclonal gammopathy- follows with hematology Pulmonary Fibrosis- follows with pulmonary History of renal insufficiency- though his most recent GFR is >60 PLAN: Osteoporosis was discussed with him and information to read was given to him. Calcium 1200 to 1500 mg daily recommended- if cannot achieve this through diet, then calcium citrate supplement recommended. He gets about 680 mg of calcium in his diet daily. Thus, he will decrease his calcium supplement and take about 600 mg daily. Continue vitamin D- will check level and give further dosing recommendations. Given that he has had compression fractures- treatment for osteoporosis is recommended pending labs. Will review labs prior to making further decisions regarding therapy. Will check: Office Visit on 11/29/17 -CALCIUM TOTAL BLD -CREATININE BLD -CROSS-LINK N-TELOPEP -PTH INTACT BLD -TSH BLD -VITAMIN D 25 HYDROXY -PROCOLLAGEN TYPE 1 Weight bearing exercise as tolerated recommended Fall precautions discussed Repeat bmd on same machine as prior 2 years from last bmd (around oct 2019) recommended I will contact him with the above lab results Continued f/u with PCP for routine health maintenance and to discuss the answers to the Knowledge Program patient questionnaire advised. rba of meds discussed. My findings and final recommendations will be communicated to the requesting health care provider by way of the shared medical record for internal providers or letter via the [employer] for external providers. Thank you for allowing me to participate in the care of your patient. 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 Blair Diagnosis: IPF Phase: 2 Session Number: 1 Subjective Data: Patient reports I am feeling fine today, no unusual shortness of breath or chest discomfort. I am ready for exercise. Objective Data: Emergency room visits since your last visit. No Medication changes since last visit. No Today's exercise session was comprised of a warm-up, breathing technique practice, lower and upper body aerobic endurance training, upper and lower body resistance training and lower body stretching/flexibility training as a cool down. Patient tolerated physician prescribed exercise workload. Vitals WNL for patient. This is a hospital based pulmonary rehab program. Patient working towards exercise goals by increasing exercise intensity and duration. Patient working towards education goal by attending education sessions in pulmonary rehabilitation. Will educate on disease and symptom management as needed. The education topic provided to the patient today was comorbidities. The patient received this education by video, staff/patient discussion and receiving of an educational hand-out. Patient has verbalized understanding of education topic and the relation to disease managment. Patient's Daily Exercise Log will be scanned into [employer] once it is completed. These can be viewed by going under the scanned documents tab and looking for documents labeled Other respiratory therapy. Daily Exercise Logs contain exercise data such as, but not limited to modality, intensity, duration and frequency of exercise, along with vital signs pre-, during, and post-exercise. Refer to patient's paper medical record for pulse oximetry data, physician prescribed Individualized Treatment Plan, and education sessions covered. Total time of visit 80 minutes. Hardik Arcos HOSP Observed: 11/26/2017 Status: COMPLETED Source: [place] 12:00 AM [facility] [place] REPOSITORY Patient Update ([facility] EVAN FLORES ([id number]) 1945 M Date Time Provider Department 11/26/17 ANGEL CHAVARRIA (EX PHYS) [facility] During your visit today, we recorded the following information about you: Angel Han Deon, Ex Phy 11/26/2017 12:09 PM Signed Pulmonary Rehabilitation [facility] Program Supervising Physician: Tejas Blair Diagnosis: IPF Phase: 2 Session Number: 1 Subjective Data: Patient reports ANDquot;I am feeling fine today, no unusual shortness of breath or chest discomfort. I am ready for exercise.ANDquot; Objective Data: Emergency room visits since your last visit. No Medication changes since last visit. No Today's exercise session was comprised of a warm-up, breathing technique practice, lower and upper body aerobic endurance training, upper and lower body resistance training and lower body stretching/flexibility training as a cool down. Patient tolerated physician prescribed exercise workload. Vitals WNL for patient. This is a hospital based pulmonary rehab program. Patient working towards exercise goals by increasing exercise intensity and duration. Patient working towards education goal by attending education sessions in pulmonary rehabilitation. Will educate on disease and symptom management as needed. The education topic provided to the patient today was comorbidities. The patient received this education by video, staff/patient discussion and receiving of an educational hand-out. Patient has verbalized understanding of education topic and the relation to disease managment. Patient's Daily Exercise Log will be scanned into [employer] once it is completed. These can be viewed by going under the ANDquot;scanned documentsANDquot; tab and looking for documents labeled ANDquot;Other respiratory therapy.ANDquot; Daily Exercise Logs contain exercise data such as, but not limited to modality, intensity, duration and frequency of exercise, along with vital signs pre-, during, and post-exercise. Refer to patient's paper medical record for pulse oximetry data, physician prescribed Individualized Treatment Plan, and education sessions covered. Total time of visit 80 minutes. Angel Han Deon, Ex Phy Allergies As of Date: 11/26/2017 (No Known Allergies) Date Reviewed: 11/08/2017 Reviewed by: Shannan Jfefries Ma - Fully Assessed Prescriptions as of 11/26/2017 Sig: CALTRATE 600 + D ORAL Take by mouth. PRAVASTATIN 20 MG TABLET Take 1 tablet by mouth daily * AMLODIPINE 5 MG TABLET Take 1 tablet by mouth once d* PANTOPRAZOLE 40 MG TABLET,DEL* Take 1 tablet by mouth once d* ASPIRIN 81 MG TABLET,DELAYED * Take 1 tablet by mouth once d* PIRFENIDONE 267 MG CAPSULE Take three (3) capsules by mo* Problem List As Of Date 11/26/2017 Noted Resolved IPF (idiopathic pulmonary fibrosis) (HCC) [J84.*INVALID FOR* CKD (chronic kidney disease) [N18.9] INVALID FOR* Hoarse voice quality [R49.0] INVALID FOR* GERD (gastroesophageal reflux disease) [K21.9] INVALID FOR* HTN (hypertension) [I10] INVALID FOR*11/07/2016 Gammopathy, 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 BPH (benign prostatic hyperplasia) [N40.0] INVALID FOR* Family history of ischemic heart disease [Z82.4*INVALID FOR* Coronary artery disease involving tyonek dougherty*INVALID FOR* More... 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] INVALID FOR* Acute midline low back pain [M54.5] INVALID FOR* Chronic hypoxemic respiratory failure (HCC) [J9*INVALID FOR* Pulmonary infiltrate [R91.8] INVALID FOR* Abnormal weight loss [R63.4] INVALID FOR* Encounter Status:Closed by ANGEL CHAVARRIA on 11/26/17 PROGRESS Observed: 11/25/2017 Status: COMPLETED Source: [place] 2:37 PM [facility] [place] REPOSITORY O ID: [id number] Author: Sina (Leonidas Wagoner Service: (none) Author Type: Physical Therapist Type: Progress Notes Filed: 11/25/2017 2:37 PM Note Text: [facility] PHYSICAL THERAPY DISCONTINUANCE OF CARE Plan of Care Period: Start of Care Date: 08/06/17 Last Visit Date: 09/04/2017 Therapy Program: The following is a summary of the interventions provided for this episode of care; Therapeutic exercise, Manual therapy, Self- retirement management and Patient/Family/Caregiver Education Assessment: The following is the goal status: Independent in home exercises. Partially met Patient will decrease pain rating by 2 points to meet minimal clinical important difference for numeric pain rating scale. Partially met Restore pain-free lumbar ROM to WNL to allow for improved functional mobility and tolerance for standing and walking Not met Stand / Walk As needed for ADLs without pain/symptoms. Not met Improve Modified Oswestry Pain Questionnaire (LBP) by 6 points (12%) to indicate a Minimal Clinical Important Difference. Patient will improve his/her AM-PAC T-scale score by 4 points to indicate a Minimal Clinical Important Difference. G CODE REPORTING Based on clinical assessment and the score on the AM-PAC Scale Score Assessment Tool, the G code and corresponding severity modifiers are documented below. Evaluation: 08/06/2017 Current Status: Mobility: Walking and Moving Around: G8978 CK 40-59% impaired Goal Status: Mobility: Walking and Moving Around: G8979 CJ 20-39% impaired Based on the most recent progress report, patient was progressing slower than expected toward functional goals based on pain levels and documented subjective information on progress. Reason for Discontinuation of Care: Patient has not returned to therapy or scheduled additional follow-up appointments. Sina Wagoner PT PROGRESS Observed: 11/08/2017 Status: COMPLETED Source: [place] 2:48 PM [facility] [place] REPOSITORY HNO ID: [id number] Author: Kirti Arango Service: (none) Author Type: Physician Type: Progress Notes Filed: 11/08/2017 3:30 PM Note Text: Consultation requested by Dr. Mai for an opinion regarding IPF. My final recommendations will be communicated back to the requesting physician by way of shared Medical record or letter to requesting physician via US mail. HPI: I had the pleasure of seeing Evan Flores in follow-up in the [facility] at [facility] on November 08, 2017. As you are aware, he is a 72-year-old lifetime nonsmoker with a past medical history significant for MGUS, CKD and GERD who I have been following in the [facility] regarding biopsy-proven IPF. His biopsy was reviewed by [facility] Pathology and showed definitive UIP. He has been on Esbriet since 2014. He presents today for routine follow-up. Since his last appointment he was diagnosed with a compression fracture in his lumbar spine. This is limited his functional capacity and is impacted his breathing slightly due to pain but overall he feels that his breathing is stable. Continues to have a morning cough which is unchanged from baseline. Also continues to complain of poor appetite, food tasting poorly and intermittent nausea. He has lost 5-7 pounds since his last appointment as well. ROS: 10 of 14 systems are reviewed and are negative except for what is stated in the History of Present Illness. PAST MEDICAL HISTORY Diagnosis Date - Back pain lower lumbar pain - Concussion 02/2011 AND 09/2011 - Gammopathy, 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 - GERD (gastroesophageal reflux disease) - HTN (hypertension) - Hyperglycemia - IPF (idiopathic pulmonary fibrosis) (HCC) diagnosed December 2013 - Renal insufficiency FAMILY HISTORY Problem Relation Age of Onset - Diabetes Mother - Hypertension Mother - Heart Mother heart failure - pulmonary fibrosis [OTHER] Mother sister as well - Hypertension Father - Seizures Father - COPD Father - pulmonary fibosis [OTHER] Sister lung disease,lung transplant - Heart Brother [place], s/p stent - Lung Disease [OTHER] Brother Social History: Social History Substance Use Topics - Smoking status: Never Smoker - Smokeless tobacco: Never Used - Alcohol use 6.0 - 16.5 oz/week 2 Cans of Beer (12oz), 2 - 3 Mixed Drinks per week Comment: ocas Allergies:ALLERGIES No Known Allergies Current Medications: CALCIUM CARBONATE/VITAMIN D3 (CALTRATE 600 + D ORAL) Take by mouth. pravastatin (PRAVACHOL) 20 mg tablet Take 1 tablet by mouth daily at bedtime. amLODIPine (NORVASC) 5 mg tablet Take 1 tablet by mouth once daily. pantoprazole DR (PROTONIX) 40 mg tablet Take 1 tablet by mouth once daily. aspirin, enteric coated (ECOTRIN LOW STRENGTH) 81 mg EC tablet Take 1 tablet by mouth once daily. pirfenidone (ESBRIET) 267 mg capsule Take three (3) capsules by mouth three (3) times daily. PHYSICAL EXAM: Vital signs: BP 128/75 Pulse 72 Temp (Src) 97.2 (Temporal Artery) Resp 15 Ht 6' 1 (1.85m) Wt 168 lb (76.2kg) SpO2 98[with 4liters]% BMI 22.17 kg/(m2). Gen: Well appearing, well nourished male in NAD, AANDOx3 CV: Regular rate and rhythm. Normal S1S2. No murmurs, gallops or rubs appreciated. Lungs: Good air movement. Bibasilar crackles. No wheezes or rhonchi. Normal work of breathing. No accessory muscle use. MS: Extremities are warm and well perfused. No clubbing, cyanosis or edema appreciated. Labs: Pertinent labs reviewed. Spirometry/PFTs (11/08/2017): Spirometry suggests mild restriction. Gas exchange is severely impaired. Compared to his most recent prior spirometry FVC has declined minimally. DLCO remains stable Pred LLN ULN Pre % FVC 4.80 3.79 5.81 3.78 79 FEV 1 3.51 2.66 4.36 3.13 89 FEV1%F 72.98 63.31 82.66 82.76 113 FEV 2 3.93 2.89 4.97 3.40 86 FEV 3 4.41 3.39 5.42 3.53 80 FEV3%E 89.91 85.27 94.55 93.34 104 MEF 50 4.44 2.82 6.07 6.73 151 FIF 50 6.59 F25/75 2.59 0.87 4.32 4.02 155 FE%FIF 102.00 FEV6 3.70 PEF 8.84 6.48 11.20 9.66 109 FET 10.28 FETPEF 0.09 VBe%FV 4.56 VBEex 0.17 DLCO 26.65 18.64 34.65 9.43 35 DL/VA 3.68 2.48 4.88 1.98 54 VA 7.37 6.00 8.74 4.76 65 SHAYNA 4.80 3.79 5.81 3.65 76 BHT 11.82 Watts walk (11/08/2017): Low/normal oximetry on room air rest. Bora oxygen saturation was 87% on room air. This corrected to 92% with exertion on 2 L supplemental oxygen by nasal cannula. Based on this study he does not qualify for supplemental oxygen at rest but does qualify for 2 L with exertion. Compared to his prior testing he required less oxygen but I feel that this is likely related to a decreased usual pace from his back pain. InspO2* ? SpO2% ? ? HR Activity ?Feet ?Time ? MPH ?Flag RA ? 94 ? ? 82 resting RA ? 87 ? ? 92 walking, usual pace ? ?285 ?1.90 ?1.70 NC2 ?97 ? ? 74 resting NC2 ?92 ? ?104 walking, usual pace ? ?440 ?3.00 ?1.67 * RA = room air, NC2 = O2 by nasal cannula at 2 LPM, ? ? ?TT2=O2 by trans-tracheal catherter at 2 LPM, etc. IMAGING CXR (10/04/2017): I have personally reviewed the CXR images and my finding as well as the formal radiology report (if available) are below. IMPRESSION: Stable moderate interstitial fibrotic changes Assessment/Plan: Evan Flores is a 72 year old male who I am following in the [facility] for biopsy- proven IPF. Clinically stable although having decreased appetite, nausea and weight loss which I feel is likely related to Pirfenidone. We discussed antiemetic but he declined at this time. For now he will continue Pirfenidone as previously prescribed. Should his weight continue to decline and his next appointment we may consider holding therapy and/or changing to nintedanib. We also discussed referral to pulmonary rehabilitation in order to help increase his muscle mass and deconditioning but due to his compression fracture I would like him to discuss this with the spine team prior to participating in any rehabilitation (J84.112) IPF (idiopathic pulmonary fibrosis) (HCC) (primary encounter diagnosis) (J96.11) Chronic hypoxemic respiratory failure (HCC) (R63.4) Abnormal weight loss Comment: As above Plan: SPIROMETRY BASELINE ONLY, LUNG DIFFUSION CAPACITY (DLCO). Continue Pirfenidone 3 tabs 3 times a day. Continue LFTs every 3 months. Consider pulmonary rehabilitation referral. Continue supplemental oxygen, 4 L with exertion. (R91.8) Pulmonary infiltrate Comment: Stable nodular infiltrate Plan: CT CHEST WO IVCON on follow-up (M48.56XS) Non-traumatic compression fracture of second lumbar vertebra, sequela Comment: As above Plan: Discussed with spine team prior to starting rehabilitation. I would like to see Evan Flores return to clinic in 6 months. Thank you for referring Evan Flores to the [facility] at the [facility]. Should you have any questions or concerns do not hesitate to contact me. -Kirti Arango MD COMP METABOLIC PANEL Collected: 11/07/2017 Status: F Source: [place] 10:51 AM [facility] REPOSITORY TYPE CODE TESTS RESULT OUT OF REFERENCE UNITS RANGE LAB TP 6.3-8.0 g/dL Protein, Total 7.0 LAB ALB 3.9-4.9 g/dL Albumin 3.9 LAB CA 8.5-10.2 mg/dL Calcium, Total 9.2 LAB TBIL 0.2-1.3 mg/dL Low Bilirubin, Total <0.2 LAB ALKP 36-108 U/L Alkaline Phosphatase 88 LAB AST 14-40 U/L AST 23 LAB GLU 74-99 mg/dL Glucose 78 Result Comment: The [place] [employer] (ADA) provides guidance for cutoff values for fasting glucose and random glucose. The ADA defines fasting as no caloric intake for at least 8 hours. Fas ting plasma glucose results between 100 to 125 mg/dL indicate increased risk for diabetes (prediabetes). Fasting plasma glucose results greater than or equal to 126 mg/dL meet the criteria for diagnosis of diabetes. In the absence of unequivocal hyperglycemia, results should be confirmed by repeat testing. In a patient with classic symptoms of hyperglycemia or hyperglycemic crisis, random plasma glucose results greater than or equal to 200 mg/dL meet the criteria for diagnosis of diabetes. Reference: Standards of Medical Care in Diabetes 2016, [place] [employer]. Diabetes Care. 2016.39(Suppl 1). LAB BUN 9-24 mg/dL BUN 12 LAB CRET 0.73-1.22 mg/dL Creatinine 1.18 LAB NA 136-144 mmol/L Sodium 142 LAB K 3.7-5.1 mmol/L Potassium 4.2 LAB CL 97-105 mmol/L Chloride 101 LAB CO2 22-30 mmol/L CO2 High 32 LAB AGAP 9-18 mmol/L Anion Gap 9 LAB ALT 10-54 U/L Low ALT 7 LAB GFRAA eGFR- Amer. >60 LAB GFRNAA . eGFR-All Other Races >60 Result Comment: eGFR (Estimated GFR) Units of measure: mL/min/1.73 meters squared eGFR is derived from the reexpressed MDRD Study equation using the following parameters: serum creatinine, age, gender and race. The creatinine assay has been calibrated to be traceable to IDMS. An eGFR <60 mL/min/1.73m2 for >3 months is consistent with chronic kidney disease. Refer to KDOQI guidelines for clinical interpretation. In patients with unstable renal function, e.g. those with acute kidney injury, the eGFR may not accurately reflect actual GFR. Performed By: #### CMP #### [facility] [address] [place] [id number] PROGRESS Observed: 11/07/2017 Status: COMPLETED Source: [place] 10:33 AM CLINIC OTHER CAMPUS REPOSITORY HNO ID: [id number] Author: Anton Alejandro Service: (none) Author Type: Physician Type: Progress Notes Filed: 11/07/2017 1:37 PM Note Text: PERTINENT CARDIAC HISTORY ASHD - NSTEMI, PCI KIMMY LAD 07/15 REYNOLDS - multifactorial ILD CRF HTN ADHERENCE TO GUIDELINES HORTENCIA-I or ARB for HF with prior LVEF<40 (NQF 0081) - N/A ASA or Plavix for ASHD (NQF 0067) - met Beta renetta for ASHD with prior GA or prior LVEF<40 (NQF 0070) - COPD Beta renetta for HF with prior LVEF<40 (NQF 0083) - N/A HORTENCIA-I or ARB for ASHD with DM or prior LVEF<40 (NQF 0066) - N/A Statin therapy for ASHD or FHL or DM - met BMI documented and plan if >25 (NQF 0421) - lifestyle recommendation form Tobacco use screening and referral (NQF 0028) - lifestyle recommendation form Recommendation for whole food, plant based diet - lifestyle recommendation form CLINICAL IMPRESSION/PLAN: Evan Flores is doing reasonably well. He may benefit from the use of an HORTENCIA inhibitor in the future. His renal function has improved. I've asked him to contact me with vital signs in the next few weeks. We will consider discontinuing amlodipine and starting an HORTENCIA inhibitor as he has established coronary disease. He will continue statin therapy. He will continue aspirin. I will see him in 8 months or as needed. I've asked him to call if his exercise tolerance decreases further or if he develops chest discomfort. Written and verbal health teaching given to patient, patient verbalizes understanding and agrees with treatment plan. This note was generated using [employer] voice recognition system, and there may be some incorrect words, spellings, and punctuation that were not noted in checking the note before saving. DIAGNOSIS FOR VISIT: ASHD Hypertension HISTORY OF PRESENT ILLNESS Evan Flores is a 72-year-old gentleman who is seen for follow-up of multiple cardiac issues, as noted above. He was formerly a patient of Dr. Villagran. He presented to this practice 2 years ago with a non-ST elevation GA. He underwent stent placement to the LAD. He was on dual antiplatelet therapy for 1 year . Since this was discontinued, he has remained free of ischemic symptoms. He has a rare episodes of reflux-type discomfort which lasts seconds. He reports gradual worsening of his exercise tolerance, which he attributes to his progressive interstitial lung disease. He is on chronic oxygen therapy. He denies edema. He's had no orthopnea, syncope, palpitations, TIAs, amaurosis or claudication ALLERGIES: ALLERGIES No Known Allergies CURRENT OUTPATIENT MEDICATIONS: CALCIUM CARBONATE/VITAMIN D3 (CALTRATE 600 + D ORAL) Take by mouth. pravastatin (PRAVACHOL) 20 mg tablet Take 1 tablet by mouth daily at bedtime. amLODIPine (NORVASC) 5 mg tablet Take 1 tablet by mouth once daily. pantoprazole DR (PROTONIX) 40 mg tablet Take 1 tablet by mouth once daily. aspirin, enteric coated (ECOTRIN LOW STRENGTH) 81 mg EC tablet Take 1 tablet by mouth once daily. pirfenidone (ESBRIET) 267 mg capsule Take three (3) capsules by mouth three (3) times daily. PAST MEDICAL HISTORY Diagnosis Date - Back pain lower lumbar pain - Concussion 02/2011 AND 09/2011 - Gammopathy, 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 - GERD (gastroesophageal reflux disease) - HTN (hypertension) - Hyperglycemia - IPF (idiopathic pulmonary fibrosis) (HCC) diagnosed December 2013 - Renal insufficiency PAST SURGICAL HISTORY Procedure Laterality Date - INGUINAL HERNIA REPAIR HX Right - LUNG BIOPSY HX 03/2014 - PAST SURGICAL HISTORY OF cardiac stent x 1 FAMILY HISTORY Problem Relation Age of Onset - Diabetes Mother - Hypertension Mother - Heart Mother heart failure - pulmonary fibrosis [OTHER] Mother sister as well - Hypertension Father - Seizures Father - COPD Father - pulmonary fibosis [OTHER] Sister lung disease,lung transplant - Heart Brother [place], s/p stent - Lung Disease [OTHER] Brother Social History Marital status: Single Spouse name: Years of education: Number of children: 0 Social History Main Topics Smoking status: Never Smoker Smokeless status: Never Used Alcohol use: Yes 6.0 - 16.5 oz/week 2 Cans of Beer (12oz), 2 - 3 Mixed Drinks per week Comment: ocas Drug use: No Sexual activity: No REVIEW OF SYSTEMS: General: No chills, fever, weight loss, night sweats. Respiratory: No productive cough. Cardiac: As noted above. GI: No melena. : No dysuria. Musculoskeletal: No myalgias. PHYSICAL EXAMINATION: S/he is alert and in no distress. VITAL SIGNS: BP 134/76 Pulse 84 Wt 174 lb 3.2 oz (79.0kg) SHEENT: Skin is warm and dry. No xanthelasmas appreciated. Pharynx is benign. There is no oral cyanosis. Neck: supple. No adenopathy or thyroid enlargement. Chest: There are scattered Velcro type rales Trachea is midline. Air entry is equal. There is no chest wall tenderness. Cardiac: Regular rhythm. P2 is accentuated. PMI is nondisplaced. There is a soft systolic ejection murmur No click is heard. Carotids are brisk without bruits. JVP is less than 10 cm. Abdomen: Soft and nontender. There are no pulsatile masses or bruits. No liver enlargement. Bowel sounds are active. Extremities: 1 plus edema. Pulses are intact and symmetrical. No clubbing or cyanosis. No femoral bruits. Neurologic: Grossly normal motor and sensory. S/he is alert and oriented x4. EKG shows sinus rhythm and is within normal limits. Multiple previous records were reviewed. Prior EKG was unchanged. Echocardiogram shows normal left ventricular function. There is mild pulmonary hypertension. These images were personally reviewed. Recent labs were reviewed. Renal function is normal. LDL was 76. Renal Doppler examination showed no evidence of renovascular disease. Electronically Signed: Anton Alejandro MD November 07, 2017 10:33 AM CC:Kevin Mai MD CNOV Observed: 11/07/2017 Status: COMPLETED Source: [place] 10:00 AM CLINIC OTHER CAMPUS REPOSITORY Office Visit (AGCARDWST) EVAN FLORES ([id number]) 1945 M Date Time Provider Department 11/07/17 10:00 AM ANTON ALEJANDRO AGCARDWST During your visit today, we recorded the following information about you: Pulse Blood pressure Weight 84/minute 134/76 79 kg Anton Alejandro MD 11/07/2017 1:37 PM Signed PERTINENT CARDIAC HISTORY ASHD - NSTEMI, PCI KIMMY LAD 07/15 [place]OLDS - multifactorial ILD CRF HTN ADHERENCE TO GUIDELINES HORTENCIA-I or ARB for HF with prior LVEFANDlt;40 (NQF 0081) - N/A ASA or Plavix for ASHD (NQF 0067) - met Beta renetta for ASHD with prior GA or prior LVEFANDlt;40 (NQF 0070) - COPD Beta renetta for HF with prior LVEFANDlt;40 (NQF 0083) - N/A HORTENCIA-I or ARB for ASHD with DM or prior LVEFANDlt;40 (NQF 0066) - N/A Statin therapy for ASHD or FHL or DM - met BMI documented and plan if ANDgt;25 (NQF 0421) - lifestyle recommendation form Tobacco use screening and referral (NQF 0028) - lifestyle recommendation form Recommendation for whole food, plant based diet - lifestyle recommendation form CLINICAL IMPRESSION/PLAN: Evan Flores is doing reasonably well. He may benefit from the use of an HORTENCIA inhibitor in the future. His renal function has improved. I've asked him to contact me with vital signs in the next few weeks. We will consider discontinuing amlodipine and starting an HORTENCIA inhibitor as he has established coronary disease. He will continue statin therapy. He will continue aspirin. I will see him in 8 months or as needed. I've asked him to call if his exercise tolerance decreases further or if he develops chest discomfort. Written and verbal health teaching given to patient, patient verbalizes understanding and agrees with treatment plan. This note was generated using [employer] voice recognition system, and there may be some incorrect words, spellings, and punctuation that were not noted in checking the note before saving. DIAGNOSIS FOR VISIT: ASHD Hypertension HISTORY OF PRESENT ILLNESS Evan Flores is a 72-year-old gentleman who is seen for follow-up of multiple cardiac issues, as noted above. He was formerly a patient of Dr. Villagran. He presented to this practice 2 years ago with a non-ST elevation GA. He underwent stent placement to the LAD. He was on dual antiplatelet therapy for 1 year . Since this was discontinued, he has remained free of ischemic symptoms. He has a rare episodes of reflux-type discomfort which lasts seconds. He reports gradual worsening of his exercise tolerance, which he attributes to his progressive interstitial lung disease. He is on chronic oxygen therapy. He denies edema. He's had no orthopnea, syncope, palpitations, TIAs, amaurosis or claudication ALLERGIES: ALLERGIES No Known Allergies CURRENT OUTPATIENT MEDICATIONS: CALCIUM CARBONATE/VITAMIN D3 (CALTRATE 600 + D ORAL) Take by mouth. pravastatin (PRAVACHOL) 20 mg tablet Take 1 tablet by mouth daily at bedtime. amLODIPine (NORVASC) 5 mg tablet Take 1 tablet by mouth once daily. pantoprazole DR (PROTONIX) 40 mg tablet Take 1 tablet by mouth once daily. aspirin, enteric coated (ECOTRIN LOW STRENGTH) 81 mg EC tablet Take 1 tablet by mouth once daily. pirfenidone (ESBRIET) 267 mg capsule Take three (3) capsules by mouth three (3) times daily. 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 - GERD (gastroesophageal reflux disease) - HTN (hypertension) - Hyperglycemia - IPF (idiopathic pulmonary fibrosis) (HCC) diagnosed December 2013 - Renal insufficiency PAST SURGICAL HISTORY Procedure Laterality Date - INGUINAL HERNIA REPAIR HX Right - LUNG BIOPSY HX 03/2014 - PAST SURGICAL HISTORY OF cardiac stent x 1 FAMILY HISTORY Problem Relation Age of Onset - Diabetes Mother - Hypertension Mother - Heart Mother heart failure - pulmonary fibrosis [OTHER] Mother sister as well - Hypertension Father - Seizures Father - COPD Father - pulmonary fibosis [OTHER] Sister lung disease,lung transplant - Heart Brother [place], s/p stent - Lung Disease [OTHER] Brother Social History Marital status: Single Spouse name: Years of education: Number of children: 0 Social History Main Topics Smoking status: Never Smoker Smokeless status: Never Used Alcohol use: Yes 6.0 - 16.5 oz/week 2 Cans of Beer (12oz), 2 - 3 Mixed Drinks per week Comment: ocas Drug use: No Sexual activity: No REVIEW OF SYSTEMS: General: No chills, fever, weight loss, night sweats. Respiratory: No productive cough. Cardiac: As noted above. GI: No melena. : No dysuria. Musculoskeletal: No myalgias. PHYSICAL EXAMINATION: S/he is alert and in no distress. VITAL SIGNS: BP 134/76 Pulse 84 Wt 174 lb 3.2 oz (79.0kg) SHEENT: Skin is warm and dry. No xanthelasmas appreciated. Pharynx is benign. There is no oral cyanosis. Neck: supple. No adenopathy or thyroid enlargement. Chest: There are scattered Velcro type rales Trachea is midline. Air entry is equal. There is no chest wall tenderness. Cardiac: Regular rhythm. P2 is accentuated. PMI is nondisplaced. There is a soft systolic ejection murmur No click is heard. Carotids are brisk without bruits. JVP is less than 10 cm. Abdomen: Soft and nontender. There are no pulsatile masses or bruits. No liver enlargement. Bowel sounds are active. Extremities: 1 plus edema. Pulses are intact and symmetrical. No clubbing or cyanosis. No femoral bruits. Neurologic: Grossly normal motor and sensory. S/he is alert and oriented x4. EKG shows sinus rhythm and is within normal limits. Multiple previous records were reviewed. Prior EKG was unchanged. Echocardiogram shows normal left ventricular function. There is mild pulmonary hypertension. These images were personally reviewed. Recent labs were reviewed. Renal function is normal. LDL was 76. Renal Doppler examination showed no evidence of renovascular disease. Electronically Signed: Anton Alejandro MD November 07, 2017 10:33 AM CC:MD Anton Trejo MD 11/07/2017 10:33 AM Signed LIFESTYLE CHANGE A healthy lifestyle is the most important component of your overall treatment plan. Please give serious thought to the following areas and commit to making intermediate card tender changes. EAT A WHOLE FOOD, PLANT BASED DIET The nutrition your body gets is more important than the medicine you take. What matters most is the overall way you eat. We encourage you to minimize the use of animal products (which include dairy and all meats except fatty fish) and use whole, unprocessed plant foods to provide your protein, vitamins and other nutrients. We have a lot of information to share with you on this topic. We also hold Shared Medical Appointments, where you can come visit with Dr. Alejandro in the company of other patients and spend over an hour talking about the challenges of changing the way you eat. This is not a ANDquot;dietANDquot;. It is a way of life that you will keep with you. EXERCISE REGULARLY It is not important to spend hours in the gym, lifting weights and perspiring heavily. A total of 2-3 hours per week of aerobic (causing you to be moderately short of breath) exercise is sufficient to improve your health. Talk to us before you begin a new exercise program, if you have heart disease or experience shortness of breath or chest pain. REDUCE STRESS Chronic emotional and physical stress leads to disease. Ways of reducing stress include meditation, visualization, prayer, yoga and other forms of relaxation therapy. Consistency is the corona. Find a technique that works for you and do it every day. CULTIVATE RELATIONSHIPS Loneliness and isolation have a major negative impact on health. Seek out others who can love, care for and nurture you. Avoid hurtful relationships. MAINTAIN IDEAL BODY WEIGHT The best way to do this is to do all the things above. Our bodies naturally find the right weight if we keep moving and feed ourselves the right food. If your BMI is greater than 25, we strongly recommend a referral to a weight management program. Please speak to us or your family physician about available programs. AVOID NICOTINE IN ALL FORMS This includes all tobacco products, whether chewed, smoked, vaped, or rubbed on the skin. Smoking cessation programs, which can make use of tobacco substitutes, medications to suppress cravings and behavior management, are available. Please contact your family physician about programs in your area. Referring Provider: ANTON ALEJANDRO [[id number]] Allergies As of Date: 11/07/2017 (No Known Allergies) Date Reviewed: 11/07/2017 Reviewed by: Shirley Ramos - Fully Assessed Reason for Visit: Recheck [92] Primary Visit Diagnosis:ASHD (arteriosclerotic heart disease) [I25.10] Other Visit Diagnosis:Hypertension, essential [I10] Order(s):ECG B/O W INTERP (MED OFFICE) [ECG06] Order #: [id number] Prescriptions as of 11/07/2017 Sig: CALTRATE 600 + D ORAL Take by mouth. PRAVASTATIN 20 MG TABLET Take 1 tablet by mouth daily * AMLODIPINE 5 MG TABLET Take 1 tablet by mouth once d* PANTOPRAZOLE 40 MG TABLET,DEL* Take 1 tablet by mouth once d* ASPIRIN 81 MG TABLET,DELAYED * Take 1 tablet by mouth once d* PIRFENIDONE 267 MG CAPSULE Take three (3) capsules by mo* Problem List As Of Date 11/07/2017 Noted Resolved IPF (idiopathic pulmonary fibrosis) ([facility]) [J84.*INVALID FOR* CKD (chronic kidney disease) [N18.9] INVALID FOR* Hoarse voice quality [R49.0] INVALID FOR* GERD (gastroesophageal reflux disease) [K21.9] INVALID FOR* HTN (hypertension) [I10] INVALID FOR*11/07/2016 Gammopathy, 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 BPH (benign prostatic hyperplasia) [N40.0] INVALID FOR* Family history of ischemic heart disease [Z82.4*INVALID FOR* Coronary artery disease involving tyonek dougherty*INVALID FOR* More... 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 Please give serious thought to the following areas and commit to making alf changes. EAT A WHOLE FOOD, PLANT BASED DIET The nutrition your body gets is more important than the medicine you take. What matters most is the overall way you eat. We encourage you to minimize the use of animal products (which include dairy and all meats except fatty fish) and use whole, unprocessed plant foods to provide your protein, vitamins and other nutrients. We have a lot of information to share with you on this topic. We also hold Shared Medical Appointments, where you can come visit with Dr. Alejandro in the company of other patients and spend over an hour talking about the challenges of changing the way you eat. This is not a diet. It is a way of life that you will keep with you. EXERCISE REGULARLY It is not important to spend hours in the gym, lifting weights and perspiring heavily. A total of 2-3 hours per week of aerobic (causing you to be moderately short of breath) exercise is sufficient to improve your health. Talk to us before you begin a new exercise program, if you have heart disease or experience shortness of breath or chest pain. REDUCE STRESS Chronic emotional and physical stress leads to disease. Ways of reducing stress include meditation, visualization, prayer, yoga and other forms of relaxation therapy. Consistency is the corona. Find a technique that works for you and do it every day. CULTIVATE RELATIONSHIPS Loneliness and isolation have a major negative impact on health. Seek out others who can love, care for and nurture you. Avoid hurtful relationships. MAINTAIN IDEAL BODY WEIGHT The best way to do this is to do all the things above. Our bodies naturally find the right weight if we keep moving and feed ourselves the right food. If your BMI is greater than 25, we strongly recommend a referral to a weight management program. Please speak to us or your family physician about available programs. AVOID NICOTINE IN ALL FORMS This includes all tobacco products, whether chewed, smoked, vaped, or rubbed on the skin. Smoking cessation programs, which can make use of tobacco substitutes, medications to suppress cravings and behavior management, are available. Please contact your family physician about programs in your area. Encounter Status:Closed by ANTON ALEJANDRO MD on 11/07/17 ALT Collected: 11/04/2017 Status: F Source: [place] 8:27 AM CLINIC MAIN CAMPUS REPOSITORY TYPE CODE TESTS RESULT OUT OF RANGE REFERENCE UNITS LAB ALT 10-54 U/L ALT 10 Performed By: #### ALT, CK, LIPB #### [facility] [address], [place] [address] CK Collected: 11/04/2017 Status: F Source: [facility] 8:27 AM [facility] [place] REPOSITORY TYPE CODE TESTS RESULT OUT OF RANGE REFERENCE UNITS LAB CK 51-298 U/L CK 61 Result Comment: Please note the updated, gender-specific reference range for this test (effective 09/13/2016). Performed By: #### ALT, CK, LIPB #### [facility] [address], [place] [address] LIPID PANEL, BASIC Collected: 11/04/2017 Status: F Source: [place] 8:27 AM [facility] REPOSITORY TYPE CODE TESTS RESULT OUT OF REFERENCE UNITS RANGE LAB CHOL <200 mg/dL Cholesterol 162 Result Comment: <200 mg/dL, Desirable 200-239 mg/dL, Borderline high >239 mg/dL, High LAB TRIGLY <150 mg/dL Triglyceride 100 Result Comment: <150 mg/dL, Normal 150-199 mg/dL, Borderline high 200-499 mg/dL, High >499 mg/dL, Very high LAB HDL >39 mg/dL HDL-Cholesterol 66 Result Comment: 40-59 mg/dL, Acceptable >59 mg/dL, High: Negative risk factor for coronary heart disease <40 mg/dL, Low: Positive risk factor for coronary heart disease LAB LDL <100 mg/dL LDL-Cholesterol 76 Result Comment: <100 mg/dL, Optimal 100-129 mg/dL, Near optimal/above optimal 130-159 mg/dL, Borderline high 160-189 mg/dL, High >189 mg/dL, Very high Secondary prevention optimal LDL Cholesterol levels are recommended to be < 70 mg/dL LAB NONHDL <130 mg/dL Non HDL Cholesterol 96 Result Comment: <130 mg/dL, Optimal 130-159 mg/dL, Near optimal/above optimal 160-189 mg/dL, Borderline high 190-219 mg/dL, High >219 mg/dL, Very high Secondary prevention optimal non HDL Cholesterol levels are recommended to be < 100 mg/dL LAB FT hrs Fasting Time 12 LAB VLDL <30 mg/dL VLDL Cholesterol 20 LAB TCHDL <5.10 TC:HDL Ratio 2.45 LAB LDLHDL <2.54 LDL:HDL Ratio 1.15 Result Comment: Reference: 1. National Cholesterol Education Program ATP III Guideline At-A-Glance Quick Desk Reference: National Heart, Lung, and Blood [place]. National Institutes of Health. 2001: NIH Publication No. 01-3305. 2. An International Atherosclerosis Society position paper: global recommendations for the management of dyslipidemia: executive summary, Atherosclerosis. 2014: 232(2):410-413. Performed By: #### ALT, CK, LIPB #### [facility] [address] [place], [place] [address] BD DXA - FOREARM Observed: 10/28/2017 Status: F Source: [place] SKELETON 8:44 AM [facility] REPOSITORY * * *Final Report* * * DATE OF EXAM: Oct 28 2017 8:44AM [id number] [id number] - BD DXA - FOREARM SKELETON - LEFT / PROCEDURE REASON: closed compression fracture of second lumbar vertebra * * * * Physician Interpretation * * * * PROCEDURE: BD DXA - AXIAL SKELETON, BD DXA - FOREARM SKELETON INDICATION: Wedge compression fracture of second lumbar vertebra, initial encounter for closed fracture Wedge compression fracture of unspecified thoracic vertebra, initial encounter for closed fracture Low back pain TECHNIQUE: Low dose AP left forearm and hip images COMPARISON: LEFT HIP: The bone mineral density of the total region of the hip is 1.026 grams per square centimeter which yields a T-score of 0.0. . LEFT FEMORAL NECK: The bone mineral density of the femoral neck is 0.849 grams per square centimeter which yields a T-score of -0.6. . RIGHT HIP: The bone mineral density of the total region of the hip is 1.048 grams per square centimeter which yields a T-score of 0.1. . RIGHT FEMORAL NECK: The bone mineral density of the femoral neck is 0.894 grams per square centimeter which yields a T-score of -0.3. . LEFT FOREARM: The bone mineral density of the radius 1/3 is 0.751 grams per square centimeter which yields a T-score of -1.2 . . 10-year Fracture Risk (FRAX): Major osteoporotic fracture risk 7.4% Hip fracture risk 1.2% IMPRESSION: Osteopenia in the left forearm. WOR[facility] ORG. CLASSIFICATION OF BONE MASS CLASSIFICATION T-SCORE Normal Greater than -1 Low Bone Mass Between -1 and -2.5 (Osteopenia) Osteoporosis Less than or equal to -2.5 Hairspring Ii Inspector: GOLDEN Transcribe Date/Time: Oct 28 2017 9:26A Dictated by : TORIN WAGNER MD This examination was interpreted and the report reviewed and electronically signed by: TORIN WAGNER MD on Oct 28 2017 9:28AM EST [id number] BD DXA - AXIAL Observed: 10/28/2017 Status: F Source: [place] 8:44 AM [facility] REPOSITORY * * *Final Report* * * DATE OF EXAM: Oct 28 2017 8:44AM WRB [id number] - BD DXA - AXIAL SKELETON B / PROCEDURE REASON: closed compression fracture of second lumbar vertebra * * * * Physician Interpretation * * * * PROCEDURE: BD DXA - AXIAL SKELETON, BD DXA - FOREARM SKELETON INDICATION: Wedge compression fracture of second lumbar vertebra, initial encounter for closed fracture Wedge compression fracture of unspecified thoracic vertebra, initial encounter for closed fracture Low back pain TECHNIQUE: Low dose AP left forearm and hip images COMPARISON: LEFT HIP: The bone mineral density of the total region of the hip is 1.026 grams per square centimeter which yields a T-score of 0.0. . LEFT FEMORAL NECK: The bone mineral density of the femoral neck is 0.849 grams per square centimeter which yields a T-score of -0.6. . RIGHT HIP: The bone mineral density of the total region of the hip is 1.048 grams per square centimeter which yields a T-score of 0.1. . RIGHT FEMORAL NECK: The bone mineral density of the femoral neck is 0.894 grams per square centimeter which yields a T-score of -0.3. . LEFT FOREARM: The bone mineral density of the radius 1/3 is 0.751 grams per square centimeter which yields a T-score of -1.2 . . 10-year Fracture Risk (FRAX): Major osteoporotic fracture risk 7.4% Hip fracture risk 1.2% IMPRESSION: Osteopenia in the left forearm. WORLD HEALTH ORG. CLASSIFICATION OF BONE MASS CLASSIFICATION T-SCORE Normal Greater than -1 Low Bone Mass Between -1 and -2.5 (Osteopenia) Osteoporosis Less than or equal to -2.5 Hairspring Ii Inspector: GOLDEN Transcribe Date/Time: Oct 28 2017 9:26A Dictated by : TORIN WAGNER MD This examination was interpreted and the report reviewed and electronically signed by: TORIN WAGNER MD on Oct 28 2017 9:28AM EST [id number] PROGRESS Observed: 10/28/2017 Status: COMPLETED Source: [place] 8:15 AM [facility] REPOSITORY HNO ID: [id number] Author: Amaris Wright Rt Service: (none) Author Type: (none) Type: Progress Notes Filed: 10/28/2017 8:44 AM Note Text: Evan Flores October 28, 2017 [id number] Double identification: Patient identified by name and Bone Density Completed. Amaris Wright Rt patient told of radiation jk 8:30am PROGRESS Observed: 10/17/2017 Status: COMPLETED Source: [place] 12:21 PM [facility] REPOSITORY HNO ID: [id number] Author: Oscar Luther Service: (none) Author Type: (none) Type: Progress Notes Filed: 10/17/2017 12:22 PM Note Text: Radiology Service Progress Note PATIENT NAME: Evan Flores DATE OF SERVICE: October 17, 2017 TIME: 12:22 PM PATIENT IDENTITY VERIFICATION COMPLETED USING TWO (2) METHODS: Patient confirmed name verbally and Date of . PATIENT GENDER DATA: Male PATIENT RELEVANT IMPLANT DATA REVIEWED: Not Applicable RADIOLOGY DEPARTMENT: General X-ray: Exam(s) Completed: Spine X-Ray(s): Scoliois Series PERIPHERAL IV DATA: Not applicable SIGNED BY: Oscar Luther October 17, 2017 12:22 PM XR SCOLIOSIS 2V PA Observed: 10/17/2017 Status: F Source: [place] STAND/LAT 12:00 PM [facility] REPOSITORY * * *Final Report* * * DATE OF EXAM: Oct 17 2017 12:00PM ALLA [id number] - XR SCOLIOSIS 2V PA STAND/LAT / PROCEDURE REASON: multiple diagnoses * * * * Physician Interpretation * * * * XR SCOLIOSIS 2V PA STAND/LAT HISTORY: pain and known fx no new injury or trauma. Wedge compression fracture of second lumbar vertebra, initial encounter for closed fracture Wedge compression fracture of unspecified thoracic vertebra, initial encounter for closed fracture Low back pain . TECHNIQUE: AP and lateral scoliosis series (12 total films). COMPARISON: 06/10/2017 lumbar spine x-rays and 05/14/2017 CT chest RESULT: There are remote compression fractures of the T8, L1, L3 and L5 vertebral bodies. There is a subacute fracture with moderate vertebral height loss at T12 which was acute on 10/01/2017 MRI lumbar spine. No additional fractures are identified. There is multilevel degenerative change. There is mild kyphotic angulation at the thoracolumbar junction secondary to the compression fractures at T12 and L1. IMPRESSION: Multiple compression fractures including a subacute compression fracture T12 as described. Hairspring Ii Inspector: PSCB Transcribe Date/Time: Oct 17 2017 6:08P Dictated by : CHRISTOPHER IBARRA MD This examination was interpreted and the report reviewed and electronically signed by: CHRISTOPHER IBARRA MD on Oct 17 2017 6:12PM EST [id number] PROGRESS Observed: 10/17/2017 Status: COMPLETED Source: [place] 9:59 AM [facility] REPOSITORY [facility] ID: [id number] Author: Tony Her Service: (none) Author Type: Physician Environmental Services Project Manager Type: Progress Notes Filed: 10/18/2017 9:57 AM Note Text: SPINE SURGERY OUTPATIENT CONSULT SERVICE DATE: 10/17/2017 PCP: Kevin Mai MD REFERRING PROVIDER: SELF Consult requested for an opinion regarding the evaluation and treatment of thoracic and lumbar fracture. My final impression and recommendations will be communicated back to the requesting physician by way of the shared medical record or letter via [place] mail. SUBJECTIVE Evan Flores is a 72 year old male presenting with brother. CHIEF COMPLAINT: back pressure HISTORY OF PRESENT ILLNESS PRECIPITATING EVENT: None DURATION OF SYMPTOMS: Greater Than 3 Months Patient is a 72 yo M presenting today with back pain. He has had chronic back pain his entire life but in May he woke up with an acute pain. He denies any falls or movements that caused the pain. He was referred by his primary care doctor. The pain slowly went away but then it was exacerbated in late July. Right now he is experiencing a severe pressure in his low back. He rates his pain on scale of 0-10 as a 6. As of August he also started to experience some numbness in the lateral thigh of his left leg. He has numbness in both feet but he has always had this. Pain in his back is exacerbated with sitting for long periods and or standing for long periods of time. The pain is best with short periods of laying or standing. He denies saddle anesthesia, bowel and bladder dysfunction. He has tried 3 courses of prednisone, and PT with no relief. He denies any history of osteoporosis and has not had a recent DEXA scan. He states that he experienced an acute exacerbation of back pain in May without any history of trauma which got better with time. He then had an exacerbation of pain in late July when he was lifting an oxygen tank. PAIN EVALUATION 10/17/2017 Pain Score: 6 Pain Location: Back-Lower Description: Sharp;Pressure Duration Amount of Time: 4.5 Duration Units: Months Frequency: Continuous Intervention: Medication;Relaxation PT Comments: worst 8/10 DERMATOMAL DISTRIBUTION: Not applicable AMBULATORY STATUS: Independent Community Distances FUNCTIONAL STATUS: Walk indoors, such as around the house (1.75 METs) Do light work around the house, such as dusting or washing dishes (2.70 METs) Take care of self, that is eating, dressing, bathing, using the toilet (2.75 METs) PREVIOUS CONSERVATIVE TREATMENTS: Oral Steroids Physical Therapy: Date(s) June PREVIOUS SPINAL SURGERY: None PED RED FLAGS No No-Significant Injury to Spine No-Use of Steroids for Prolonged Duration No-Loss of Bowel/Bladder Control, Genital/Anal Numbness No-Recent Use of Intravenous (IV) Drugs No-Difficulty Keeping Balance when Walking No-Progressive Weakness in Arms/Legs No-History of Any Type of Cancer No-Unable to Find Position of Comfort No-Pain at Night that Disturbs Sleep No-Recent Elevated Temp with Unknown Cause No-Diagnosed with Osteoporosis No-Unintentional Weight Loss or Gain *PED (Patient Entered Data) osteoporosis flag will display for females 55 years or older and males 75 years or older. 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 for Coronary Artery Disease Essential Hypertension Hyperglycemia Nuclear Sclerotic Cataract of Both Eyes Floaters Asteroid Hyalosis of Left Eye Acute Midline Low Back Pain PAST MEDICAL HISTORY Diagnosis Date - Back pain lower lumbar pain - Concussion 02/2011 AND 09/2011 - Gammopathy, 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 - GERD (gastroesophageal reflux disease) - HTN (hypertension) - Hyperglycemia - IPF (idiopathic pulmonary fibrosis) (HCC) diagnosed December 2013 - Renal insufficiency PAST SURGICAL HISTORY Procedure Laterality Date - INGUINAL HERNIA REPAIR HX Right - LUNG BIOPSY HX 03/2014 - PAST SURGICAL HISTORY OF cardiac stent x 1 FAMILY HISTORY Problem Relation Age of Onset - Diabetes Mother - Hypertension Mother - Heart Mother heart failure - pulmonary fibrosis [OTHER] Mother sister as well - Hypertension Father - Seizures Father - COPD Father - pulmonary fibosis [OTHER] Sister lung disease,lung transplant - Heart Brother [place], s/p stent - Lung Disease [OTHER] Brother Social History Marital status: Single Spouse name: Years of education: Number of children: 0 Social History Main Topics Smoking status: Never Smoker Smokeless status: Never Used Alcohol use: Yes 6.0 - 16.5 oz/week 2 Cans of Beer (12oz), 2 - 3 Mixed Drinks per week Comment: ocas Drug use: No Sexual activity: No ALLERGIES No Known Allergies MEDICATIONS: pravastatin (PRAVACHOL) 20 mg tablet Take 1 tablet by mouth daily at bedtime. amLODIPine (NORVASC) 5 mg tablet Take 1 tablet by mouth once daily. pantoprazole DR (PROTONIX) 40 mg tablet Take 1 tablet by mouth once daily. aspirin, enteric coated (ECOTRIN LOW STRENGTH) 81 mg EC tablet Take 1 tablet by mouth once daily. pirfenidone (ESBRIET) 267 mg capsule Take three (3) capsules by mouth three (3) times daily. REVIEW OF SYSTEMS: PAIN ASSESSMENT: See HPI. GENERAL: Denies fever, chills malaise and weight loss. HEENT: No recent change in vision or hearing. CARDIOVASCULAR: Has one stent RESPIRATORY: Pulmonary fibrosis and pulmonary HTN GI: Denies GI ulcers, inflammatory disease, or liver disease. : CKF MUSCULOSKELETAL: Negative for joint pain or swelling, back pain or muscle pain. SKIN: Denies rash or itching. PSYCHOLOGICAL: Denies uncontrolled depression or anxiety. NEURO: Denies CVA, seizures, headaches. ENDOCRINE: Denies diabetes, thyroid disease. HEMATOLOGY/LYMPHOLOGY: Denies cancer, bleeding or clotting disorders, anemia,and DVT's. ALLERGIC/IMMUNOLOGICAL: Denies risks for infection, or recent MRSA infections. OBJECTIVE: PHYSICAL EXAM BP 150/74 Pulse 114 Resp 18 Ht 185.4 cm (6' 1) Wt 81.6 kg (180 lb) BMI 23.75 kg/m2 GENERAL APPEARANCE: Well nourished, well developed, and no apparent distress. NEURO PSYCH: Patient oriented to person, place, and time. Mood pleasant. Benign affect. SKIN: Head, neck, trunk, and extremities dry, intact and without lesions. MUSCULOSKELETAL VISUAL INSPECTION CERVICAL: Kyphosis THORACIC: WNL LUMBAR: WNL PALPATION: SPINOUS PROCESS: No pain. PARASPINALS: No pain. MUSCLE BULK: Normal and symmetrical in the upper AND lower extremities. MUSCLE TONE: Normal. MOTOR: 5/5 in all muscle groups. SENSORY: Normal sensory exam GAIT: Normal. REFLEXES: +2 to bilateral U/L extremities. PROPRIOCEPTION: Not tested. LONG TRACT SIGNS: No clonus. No Hoffmans. STRAIGHT LEG TEST: Ipsilateral: Negative. Contralateral: Negative. L'HERMITTES SIGN: Not tested. SPURLING'S TEST: Not tested. NEURO TESTS: None DATA REVIEW [facility] records reviewed ASSESSMENT/PLAN IMPRESSION: (S32.020A) Closed compression fracture of second lumbar vertebra, initial encounter ([facility]) (primary encounter diagnosis) (S22.000A) Closed compression fracture of thoracic vertebra, initial encounter ([facility]) (M54.5) Acute midline low back pain, with sciatica presence unspecified Patient is a 72 yo M presenting with multiple compression fractures, T12 and L2 appear subacute. Xr show some PJK above fractures, bones appear osteopenic. His pain is improving. Discussed kyphoplasty with patient, but because pain seems to be improving and at risk of further fracture, would recommend holding off. Discussed corset brace for prolonged activity. Would recommend scoli films to assess alignment. Also bone density scn an consult with metabolic bone. Patient verbalized understanding. Gave reassurance. Evan Flores has a condition that requires further workup. 1. Imaging: Scoliosis X-Ray 2. Consults: Metabolic Bone 3. Follow up: Following above SIGNATURE: Tony Her PA-C PATIENT NAME: Evan Flores DATE: October 17, 2017 TIME: 10:00 AM PAGER: MALIHA Observed: 10/17/2017 Status: COMPLETED Source: [place] 9:40 AM [facility] REPOSITORY Office Visit ([facility]) EVAN FLORES ([id number]) 1945 M Date Time Provider Department 10/17/17 9:40 AM TONY HER) [facility] During your visit today, we recorded the following information about you: Pulse Respiration Blood pressure Weight 114/minute 18/minute 150/74 81.6 kg Height 1.854 m Tony Her PA-C 10/18/2017 9:57 AM Signed SPINE SURGERY OUTPATIENT CONSULT SERVICE DATE: 10/17/2017 PCP: Kevin Mai MD REFERRING PROVIDER: SELF Consult requested for an opinion regarding the evaluation and treatment of thoracic and lumbar fracture. My final impression and recommendations will be communicated back to the requesting physician by way of the shared medical record or letter via [place] mail. SUBJECTIVE Evan Flores is a 72 year old male presenting with brother. CHIEF COMPLAINT: back pressure HISTORY OF PRESENT ILLNESS PRECIPITATING EVENT: None DURATION OF SYMPTOMS: Greater Than 3 Months Patient is a 72 yo M presenting today with back pain. He has had chronic back pain his entire life but in May he woke up with an acute pain. He denies any falls or movements that caused the pain. He was referred by his primary care doctor. The pain slowly went away but then it was exacerbated in late July. Right now he is experiencing a severe ANDquot;pressureANDquot; in his low back. He rates his pain on scale of 0-10 as a 6. As of August he also started to experience some numbness in the lateral thigh of his left leg. He has numbness in both feet but he has always had this. Pain in his back is exacerbated with sitting for long periods and or standing for long periods of time. The pain is best with short periods of laying or standing. He denies saddle anesthesia, bowel and bladder dysfunction. He has tried 3 courses of prednisone, and PT with no relief. He denies any history of osteoporosis and has not had a recent DEXA scan. He states that he experienced an acute exacerbation of back pain in May without any history of trauma which got better with time. He then had an exacerbation of pain in late July when he was lifting an oxygen tank. PAIN EVALUATION 10/17/2017 Pain Score: 6 Pain Location: Back-Lower Description: Sharp;Pressure Duration Amount of Time: 4.5 Duration Units: Months Frequency: Continuous Intervention: Medication;Relaxation PT Comments: worst 8/10 DERMATOMAL DISTRIBUTION: Not applicable AMBULATORY STATUS: Independent Community Distances FUNCTIONAL STATUS: Walk indoors, such as around the house (1.75 METs) Do light work around the house, such as dusting or washing dishes (2.70 METs) Take care of self, that is eating, dressing, bathing, using the toilet (2.75 METs) PREVIOUS CONSERVATIVE TREATMENTS: Oral Steroids Physical Therapy: Date(s) June PREVIOUS SPINAL SURGERY: None PED RED FLAGS No No-Significant Injury to Spine No-Use of Steroids for Prolonged Duration No-Loss of Bowel/Bladder Control, Genital/Anal Numbness No-Recent Use of Intravenous (IV) Drugs No-Difficulty Keeping Balance when Walking No-Progressive Weakness in Arms/Legs No-History of Any Type of Cancer No-Unable to Find Position of Comfort No-Pain at Night that Disturbs Sleep No-Recent Elevated Temp with Unknown Cause No-Diagnosed with Osteoporosis No-Unintentional Weight Loss or Gain *PED (Patient Entered Data) osteoporosis flag will display for females 55 years or older and males 75 years or older. 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 for Coronary Artery Disease Essential Hypertension Hyperglycemia Nuclear Sclerotic Cataract of Both Eyes Floaters Asteroid Hyalosis of Left Eye Acute Midline Low Back Pain 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 - GERD (gastroesophageal reflux disease) - HTN (hypertension) - Hyperglycemia - IPF (idiopathic pulmonary fibrosis) (HCC) diagnosed December 2013 - Renal insufficiency PAST SURGICAL HISTORY Procedure Laterality Date - INGUINAL HERNIA REPAIR HX Right - LUNG BIOPSY HX 03/2014 - PAST SURGICAL HISTORY OF cardiac stent x 1 FAMILY HISTORY Problem Relation Age of Onset - Diabetes Mother - Hypertension Mother - Heart Mother heart failure - pulmonary fibrosis [OTHER] Mother sister as well - Hypertension Father - Seizures Father - COPD Father - pulmonary fibosis [OTHER] Sister lung disease,lung transplant - Heart Brother [place], s/p stent - Lung Disease [OTHER] Brother Social History Marital status: Single Spouse name: Years of education: Number of children: 0 Social History Main Topics Smoking status: Never Smoker Smokeless status: Never Used Alcohol use: Yes 6.0 - 16.5 oz/week 2 Cans of Beer (12oz), 2 - 3 Mixed Drinks per week Comment: ocas Drug use: No Sexual activity: No ALLERGIES No Known Allergies MEDICATIONS: pravastatin (PRAVACHOL) 20 mg tablet Take 1 tablet by mouth daily at bedtime. amLODIPine (NORVASC) 5 mg tablet Take 1 tablet by mouth once daily. pantoprazole DR (PROTONIX) 40 mg tablet Take 1 tablet by mouth once daily. aspirin, enteric coated (ECOTRIN LOW STRENGTH) 81 mg EC tablet Take 1 tablet by mouth once daily. pirfenidone (ESBRIET) 267 mg capsule Take three (3) capsules by mouth three (3) times daily. REVIEW OF SYSTEMS: PAIN ASSESSMENT: See HPI. GENERAL: Denies fever, chills malaise and weight loss. HEENT: No recent change in vision or hearing. CARDIOVASCULAR: Has one stent RESPIRATORY: Pulmonary fibrosis and pulmonary HTN GI: Denies GI ulcers, inflammatory disease, or liver disease. : CKF MUSCULOSKELETAL: Negative for joint pain or swelling, back pain or muscle pain. SKIN: Denies rash or itching. PSYCHOLOGICAL: Denies uncontrolled depression or anxiety. NEURO: Denies CVA, seizures, headaches. ENDOCRINE: Denies diabetes, thyroid disease. HEMATOLOGY/LYMPHOLOGY: Denies cancer, bleeding or clotting disorders, anemia,and DVT's. ALLERGIC/IMMUNOLOGICAL: Denies risks for infection, or recent MRSA infections. OBJECTIVE: PHYSICAL EXAM BP 150/74 Pulse 114 Resp 18 Ht 185.4 cm (6' 1ANDquot;) Wt 81.6 kg (180 lb) BMI 23.75 kg/m2 GENERAL APPEARANCE: Well nourished, well developed, and no apparent distress. NEURO PSYCH: Patient oriented to person, place, and time. Mood pleasant. Benign affect. SKIN: Head, neck, trunk, and extremities dry, intact and without lesions. MUSCULOSKELETAL VISUAL INSPECTION CERVICAL: Kyphosis THORACIC: WNL LUMBAR: WNL PALPATION: SPINOUS PROCESS: No pain. PARASPINALS: No pain. MUSCLE BULK: Normal and symmetrical in the upper ANDamp; lower extremities. MUSCLE TONE: Normal. MOTOR: 5/5 in all muscle groups. SENSORY: Normal sensory exam GAIT: Normal. REFLEXES: +2 to bilateral U/L extremities. PROPRIOCEPTION: Not tested. LONG TRACT SIGNS: No clonus. No Hoffmans. STRAIGHT LEG TEST: Ipsilateral: Negative. Contralateral: Negative. L'HERMITTES SIGN: Not tested. SPURLING'S TEST: Not tested. NEURO TESTS: None DATA REVIEW [facility] records reviewed ASSESSMENT/PLAN IMPRESSION: (S32.020A) Closed compression fracture of second lumbar vertebra, initial encounter ([facility]) (primary encounter diagnosis) (S22.000A) Closed compression fracture of thoracic vertebra, initial encounter ([facility]) (M54.5) Acute midline low back pain, with sciatica presence unspecified Patient is a 72 yo M presenting with multiple compression fractures, T12 and L2 appear subacute. Xr show some PJK above fractures, bones appear osteopenic. His pain is improving. Discussed kyphoplasty with patient, but because pain seems to be improving and at risk of further fracture, would recommend holding off. Discussed corset brace for prolonged activity. Would recommend scoli films to assess alignment. Also bone density scn an consult with metabolic bone. Patient verbalized understanding. Gave reassurance. Evan Flores has a condition that requires further workup. 1. Imaging: Scoliosis X-Ray 2. Consults: Metabolic Bone 3. Follow up: Following above SIGNATURE: Tony Her PA-C PATIENT NAME: Evan Flores DATE: October 17, 2017 TIME: 10:00 AM PAGER: Tony Her PA-C 10/17/2017 10:55 AM Signed Would not recommend surgery as your symptoms are improving. Most fractures heal within 3 months. You could try a lumbar brace for prolonged activity if needed. Let me know. XR today to assess alignment and fracture today. I will call with results. Schedule Bone Density. Will let you know the results. Metabolic Bone to treat bone quality. Tony Her PA-C [phone] Referring Provider: SELF [200] Allergies As of Date: 10/17/2017 (No Known Allergies) Date Reviewed: 10/17/2017 Reviewed by: Stewart Barrios - Fully Assessed Reason for Visit: New Patient [172] Primary Visit Diagnosis:Closed compression fracture of second lumbar vertebra, initial encounter ([facility]) [S32.020A] Other Visit Diagnoses:Closed compression fracture of thoracic vertebra, initial encounter ([facility]) [S22.000A] Acute midline low back pain, with sciatica presence unspecified [M54.5] Osteopenia of spine [M85.88] Order(s):XR SCOLIOSIS PA STAND/LAT 2V [[id number]] Order #: [id number] FUTURE DXA-AXIAL SKELETON [[id number]] Order #: [id number] FUTURE CONSULT TO METABOLIC BONE [[id number]] Order #: [id number]: 1 Prescriptions as of 10/17/2017 Sig: PRAVASTATIN 20 MG TABLET Take 1 tablet by mouth daily * AMLODIPINE 5 MG TABLET Take 1 tablet by mouth once d* PANTOPRAZOLE 40 MG TABLET,DEL* Take 1 tablet by mouth once d* ASPIRIN 81 MG TABLET,DELAYED * Take 1 tablet by mouth once d* PIRFENIDONE 267 MG CAPSULE Take three (3) capsules by mo* Problem List As Of Date 10/17/2017 Noted Resolved IPF (idiopathic pulmonary fibrosis) ([facility]) [J84.*INVALID FOR* CKD (chronic kidney disease) [N18.9] INVALID FOR* Hoarse voice quality [R49.0] INVALID FOR* GERD (gastroesophageal reflux disease) [K21.9] INVALID FOR* HTN (hypertension) [I10] INVALID FOR*11/07/2016 Gammopathy, 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 BPH (benign prostatic hyperplasia) [N40.0] INVALID FOR* Family history of ischemic heart disease [Z82.4*INVALID FOR* Coronary artery disease involving [place] dougherty*INVALID FOR* More... 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 Most fractures heal within 3 months. You could try a lumbar brace for prolonged activity if needed. Let me know. XR today to assess alignment and fracture today. I will call with results. Schedule Bone Density. Will let you know the results. Metabolic Bone to treat bone quality. Tony Her PA-C [phone] Follow-up and Disposition History Recorded Encounter Status:Closed by TONY HER PA-C on 10/18/17 XR CHEST 2V FRONTAL/LAT Observed: 10/04/2017 Status: F Source: [place] 11:40 AM [facility] [place] REPOSITORY * * *Final Report* * * DATE OF EXAM: Oct 04 2017 11:40AM WOX [id number] - XR CHEST 2V FRONTAL/LAT / PROCEDURE REASON: multiple diagnoses * * * * Physician Interpretation * * * * CHEST RADIOGRAPH (PA and lateral views) 10/04/2017 11:40 AM Indications: Chronic obstructive pulmonary disease with acute lower respiratory infection Acute bronchitis, unspecified shortness of breath and coughing since Saturday M: XC2_3 Comparison: 12/29/2010 RESULTS: 1. Lines, Tubes, and Devices: None 2. Lungs and Pleura: Moderate interstitial fibrosis again noted. Some irregular densities in the lung bases similar to the previous study probably chronic . Pulmonary vascularity is unremarkable. 3. Cardiomediastinal silhouette: Heart size within normal limits. 4. Other: Bony structures unremarkable. IMPRESSION: Stable moderate interstitial fibrotic changes Hairspring Ii Inspector: GOLDEN Transcribe Date/Time: Oct 04 2017 2:14P Dictated by : ISA ROJAS DO This examination was interpreted and the report reviewed and electronically signed by: ISA ROJAS DO on Oct 04 2017 2:16PM EST [id number] PROGRESS Observed: 10/04/2017 Status: COMPLETED Source: [place] 11:26 AM [facility] [place] REPOSITORY HNO ID: [id number] Author: Amaris Wright Rt Service: (none) Author Type: (none) Type: Progress Notes Filed: 10/04/2017 11:41 AM Note Text: Radiology Service Progress Note PATIENT NAME: Evan Flores DATE OF SERVICE: October 04, 2017 TIME: 11:26 AM PATIENT IDENTITY VERIFICATION COMPLETED USING TWO (2) METHODS: Patient confirmed name verbally and Date of . PATIENT GENDER DATA: Male PATIENT RELEVANT IMPLANT DATA REVIEWED: Not Applicable RADIOLOGY DEPARTMENT: General X-ray: Exam(s) Completed: Chest X-Ray PERIPHERAL IV DATA: Not applicable SIGNED BY: Amaris Luther October 04, 2017 11:26 AM PROGRESS Observed: 10/04/2017 Status: COMPLETED Source: [place] 10:59 AM [facility] [place] REPOSITORY O ID: [id number] Author: Kevin Mai Service: (none) Author Type: Physician Type: Progress Notes Filed: 10/04/2017 11:13 AM Note Text: Patient presents with: URI HPI: Patient presents today for office visit for an acute visit. Nursing Notes: Sharla Underwood Ma 10/04/2017 10:37 AM Signed Patient complains of URI symptoms. DURATION OF SYMPTOMS: Since 09/30/17 ONSET OF SYMPTOMS: Gradual FEVER: Not checked but felt warm BODYACHES: No TIREDNESS: Mild HEADACHE: No EAR SYMPTOMS: None STUFFY NOSE: Yes POST NASAL DRIP: Sometimes SNEEZING: No SORE THROAT: started with a sore throat but gone now COUGH: Yes, with sputum production CHEST DISCOMFORT: Yes - described as congested SHORTNESS OF BREATH: Yes - at rest WHEEZING: No SPUTUM PRODUCTION: White OVER THE COUNTER MEDICATION PATIENT IS TAKING: No OTC use PULM: coughing with sputum. Had some nose bleeding and noted he did cough up a small amount of sputum. Still using his oxygen. No muscle aches. Discussed possibility of influenza. Flu is now widespread in this area. We can only test for it with regular nasal swabs and testing will not change our clinical course at this point. The patient is beyond 48 hours so would not be a typical candidate for antiviral therapy. No gi issues. HLD: has labs ordered. Nephro: has not been back to see nephrology. Heme: still seeing Dr. Toribio. Back: have recommended seeing spine center. MEDICATIONS: Current Outpatient Prescriptions: pravastatin (PRAVACHOL) 20 mg tablet Take 1 tablet by mouth daily at bedtime. amLODIPine (NORVASC) 5 mg tablet Take 1 tablet by mouth once daily. pantoprazole DR (PROTONIX) 40 mg tablet Take 1 tablet by mouth once daily. aspirin, enteric coated (ECOTRIN LOW STRENGTH) 81 mg EC tablet Take 1 tablet by mouth once daily. pirfenidone (ESBRIET) 267 mg capsule Take three (3) capsules by mouth three (3) times daily. No current facility-administered medications for this visit. 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 - GERD (gastroesophageal reflux disease) - HTN (hypertension) - Hyperglycemia - IPF (idiopathic pulmonary fibrosis) (HCC) diagnosed December 2013 - Renal insufficiency PAST SURGICAL HISTORY Procedure Laterality Date - INGUINAL HERNIA REPAIR HX Right - LUNG BIOPSY HX 03/2014 - PAST SURGICAL HISTORY OF 07/04/20106 cardiac stent x 1 FAMILY HISTORY Problem Relation Age of Onset - Diabetes Mother - Hypertension Mother - Heart Mother heart failure - pulmonary fibrosis [OTHER] Mother sister as well - Hypertension Father - Seizures Father - COPD Father - pulmonary fibosis [OTHER] Sister lung disease,lung transplant - Heart Brother [place], s/p stent - Lung Disease [OTHER] Brother Social History Marital status: Single Spouse name: Years of education: Number of children: 0 Social History Main Topics Smoking status: Never Smoker Smokeless status: Never Used Alcohol use: Yes 6.0 - 16.5 oz/week 2 Cans of Beer (12oz), 2 - 3 Mixed Drinks per week Comment: ocas Drug use: No Sexual activity: No Reviewed current medications, allergies, past medical history, surgical history, family history and social history today. REVIEW OF SYSTEMS All other reviewed and negative other than HPI. HEALTH MAINTENANCE: Reviewed health maintenance issues today and recommended the following in detail. COLORECTAL CANCER SCREENING,SEE MODIFIER -recommended. VITALS: BP 128/66 Pulse 90 Temp 36.7 ?C (98.1 ?F) (Tympanic) SpO2 96% Last 4 Encounter Wt Readings: Date: Wt: 07/23/2017 82.6 kg (182 lb) 07/16/2017 81.5 kg (179 lb 9.6 oz) 06/10/2017 81.6 kg (180 lb) 05/07/2017 81.6 kg (179 lb 14.4 oz) PHYSICAL EXAMINATION: General appearance: Well appearing, alert, in no acute distress, well-hydrated, well nourished. Skin: Skin color, texture, turgor normal, no suspicious rashes or lesions Head: Normocephalic, no masses, lesions, tenderness or abnormalities Ears: External ears normal, canals clear Nose/Sinuses: Nares normal, septum midline, mucosa normal, no drainage or sinus tenderness Oropharynx: Lips, mucosa, and tongue normal, teeth and gums normal, oropharynx normal Neck: Supple, no adenopathy; thyroid symmetric, normal size, no bruits Lungs: Positive findings: crackles Heart: RRR without murmur, gallop, or rubs. No ectopy Abdomen: Normal abdominal exam, Abdomen soft, non-tender. Bowel sounds normal. No masses, organomegaly Extremities: No deformities, edema, skin discoloration, clubbing or cyanosis. Good capillary refill. ASSESSMENT/PLAN: 1. Acute bronchitis with chronic obstructive pulmonary disease (COPD) ([facility]) - ICD9: 491.22, ICD10: J44.0, J20.9 (primary diagnosis) - Call if symptoms worsen at all or if not better in one to two weeks - Red flags for re-assessment reviewed with patient in detail. - Discussed risks and benefits of new medication with the patient. Advised them to call if any side effects or questions. - XR CHEST 2V FRONTAL/LAT - CEFUROXIME AXETIL 250 MG TABLET 2. IPF (idiopathic pulmonary fibrosis) ([facility]) - ICD9: 516.31, ICD10: J84.112 - will follow closely. Hold on steroids since has just had. 3. Coronary artery disease involving [place] coronary artery of ty[place] heart without angina pectoris - ICD9: 414.01, ICD10: I25.10 - call if any issues. 4. Essential hypertension - ICD9: 401.9, ICD10: I10 - good control - Continue current medication(s) - Goal of BP <140/90 5. Stage 3 chronic kidney disease - ICD9: 585.3, ICD10: N18.3 - will follow. Last labs have been ok. 6. Gammopathy, monoclonal - ICD9: 273.1, ICD10: D47.2 - see heme onc Kevin Mai MD CNOV Observed: 10/04/2017 Status: COMPLETED Source: [place] 10:00 AM [facility] [place] REPOSITORY Office Visit (FAMPWS) EVAN FLORES ([id number]) 1945 M Date Time Provider Department 10/04/17 10:00 AM KEVIN MAI During your visit today, we recorded the following information about you: Temperature Pulse Blood pressure 98.1 degrees 90/minute 128/66 Sharla Underwood Ma 10/04/2017 10:37 AM Signed Patient complains of URI symptoms. DURATION OF SYMPTOMS: Since 09/30/17 ONSET OF SYMPTOMS: Gradual FEVER: Not checked but felt warm BODYACHES: No TIREDNESS: Mild HEADACHE: No EAR SYMPTOMS: None STUFFY NOSE: Yes POST NASAL DRIP: Sometimes SNEEZING: No SORE THROAT: started with a sore throat but gone now COUGH: Yes, with sputum production CHEST DISCOMFORT: Yes - described as congested SHORTNESS OF BREATH: Yes - at rest WHEEZING: No SPUTUM PRODUCTION: White OVER THE COUNTER MEDICATION PATIENT IS TAKING: No OTC use Kevin Mai MD 10/04/2017 11:13 AM Signed Patient presents with: URI HPI: Patient presents today for office visit for an acute visit. Nursing Notes: Sharla Underwood Ma 10/04/2017 10:37 AM Signed Patient complains of URI symptoms. DURATION OF SYMPTOMS: Since 09/30/17 ONSET OF SYMPTOMS: Gradual FEVER: Not checked but felt warm BODYACHES: No TIREDNESS: Mild HEADACHE: No EAR SYMPTOMS: None STUFFY NOSE: Yes POST NASAL DRIP: Sometimes SNEEZING: No SORE THROAT: started with a sore throat but gone now COUGH: Yes, with sputum production CHEST DISCOMFORT: Yes - described as congested SHORTNESS OF BREATH: Yes - at rest WHEEZING: No SPUTUM PRODUCTION: White OVER THE COUNTER MEDICATION PATIENT IS TAKING: No OTC use PULM: coughing with sputum. Had some nose bleeding and noted he did cough up a small amount of sputum. Still using his oxygen. No muscle aches. Discussed possibility of influenza. Flu is now widespread in this area. We can only test for it with regular nasal swabs and testing will not change our clinical course at this point. The patient is beyond 48 hours so would not be a typical candidate for antiviral therapy. No gi issues. HLD: has labs ordered. Nephro: has not been back to see nephrology. Heme: still seeing Dr. Toribio. Back: have recommended seeing spine center. MEDICATIONS: Current Outpatient Prescriptions: pravastatin (PRAVACHOL) 20 mg tablet Take 1 tablet by mouth daily at bedtime. amLODIPine (NORVASC) 5 mg tablet Take 1 tablet by mouth once daily. pantoprazole DR (PROTONIX) 40 mg tablet Take 1 tablet by mouth once daily. aspirin, enteric coated (ECOTRIN LOW STRENGTH) 81 mg EC tablet Take 1 tablet by mouth once daily. pirfenidone (ESBRIET) 267 mg capsule Take three (3) capsules by mouth three (3) times daily. No current facility-administered medications for this visit. 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 - GERD (gastroesophageal reflux disease) - HTN (hypertension) - Hyperglycemia - IPF (idiopathic pulmonary fibrosis) (HCC) diagnosed December 2013 - Renal insufficiency PAST SURGICAL HISTORY Procedure Laterality Date - INGUINAL HERNIA REPAIR HX Right - LUNG BIOPSY HX 03/2014 - PAST SURGICAL HISTORY OF 07/04/20106 cardiac stent x 1 FAMILY HISTORY Problem Relation Age of Onset - Diabetes Mother - Hypertension Mother - Heart Mother heart failure - pulmonary fibrosis [OTHER] Mother sister as well - Hypertension Father - Seizures Father - COPD Father - pulmonary fibosis [OTHER] Sister lung disease,lung transplant - Heart Brother [place], s/p stent - Lung Disease [OTHER] Brother Social History Marital status: Single Spouse name: Years of education: Number of children: 0 Social History Main Topics Smoking status: Never Smoker Smokeless status: Never Used Alcohol use: Yes 6.0 - 16.5 oz/week 2 Cans of Beer (12oz), 2 - 3 Mixed Drinks per week Comment: ocas Drug use: No Sexual activity: No Reviewed current medications, allergies, past medical history, surgical history, family history and social history today. REVIEW OF SYSTEMS All other reviewed and negative other than HPI. HEALTH MAINTENANCE: Reviewed health maintenance issues today and recommended the following in detail. COLORECTAL CANCER SCREENING,SEE MODIFIER -recommended. VITALS: BP 128/66 Pulse 90 Temp 36.7 ?C (98.1 ?F) (Tympanic) SpO2 96% Last 4 Encounter Wt Readings: Date: Wt: 07/23/2017 82.6 kg (182 lb) 07/16/2017 81.5 kg (179 lb 9.6 oz) 06/10/2017 81.6 kg (180 lb) 05/07/2017 81.6 kg (179 lb 14.4 oz) PHYSICAL EXAMINATION: General appearance: Well appearing, alert, in no acute distress, well-hydrated, well nourished. Skin: Skin color, texture, turgor normal, no suspicious rashes or lesions Head: Normocephalic, no masses, lesions, tenderness or abnormalities Ears: External ears normal, canals clear Nose/Sinuses: Nares normal, septum midline, mucosa normal, no drainage or sinus tenderness Oropharynx: Lips, mucosa, and tongue normal, teeth and gums normal, oropharynx normal Neck: Supple, no adenopathy; thyroid symmetric, normal size, no bruits Lungs: Positive findings: crackles Heart: RRR without murmur, gallop, or rubs. No ectopy Abdomen: Normal abdominal exam, Abdomen soft, non-tender. Bowel sounds normal. No masses, organomegaly Extremities: No deformities, edema, skin discoloration, clubbing or cyanosis. Good capillary refill. ASSESSMENT/PLAN: 1. Acute bronchitis with chronic obstructive pulmonary disease (COPD) ([facility]) - ICD9: 491.22, ICD10: J44.0, J20.9 (primary diagnosis) - Call if symptoms worsen at all or if not better in one to two weeks - Red flags for re-assessment reviewed with patient in detail. - Discussed risks and benefits of new medication with the patient. Advised them to call if any side effects or questions. - XR CHEST 2V FRONTAL/LAT - CEFUROXIME AXETIL 250 MG TABLET 2. IPF (idiopathic pulmonary fibrosis) ([facility]) - ICD9: 516.31, ICD10: J84.112 - will follow closely. Hold on steroids since has just had. 3. Coronary artery disease involving ty[place] coronary artery of ty[place] heart without angina pectoris - ICD9: 414.01, ICD10: I25.10 - call if any issues. 4. Essential hypertension - ICD9: 401.9, ICD10: I10 - good control - Continue current medication(s) - Goal of BP ANDlt;140/90 5. Stage 3 chronic kidney disease - ICD9: 585.3, ICD10: N18.3 - will follow. Last labs have been ok. 6. Gammopathy, monoclonal - ICD9: 273.1, ICD10: D47.2 - see heme onc Kevin Mai MD Referring Provider: SELF [200] Allergies As of Date: 10/04/2017 (No Known Allergies) Date Reviewed: 10/04/2017 Reviewed by: Sharla Underwood Ma - Fully Assessed Reason for Visit: URI [115] Primary Visit Diagnosis:Acute bronchitis with chronic obstructive pulmonary disease (COPD) ([facility]) [J44.0, J20.9] Other Visit Diagnoses:IPF (idiopathic pulmonary fibrosis) ([facility]) [J84.112] Coronary artery disease involving ty[place] coronary artery of ty[place] heart without angina pectoris [I25.10] Essential hypertension [I10] Stage 3 chronic kidney disease [N18.3] Gammopathy, monoclonal [D47.2] Order(s):XR CHEST 2V FRONTAL/LAT [[id number]] Order #: [id number] FUTURE cefUROXime (CEFTIN) 250 mg tabletTake 1 tablet by mouth twice daily for 10 days.Disp: 20 tabletRfl: 0 Prescriptions as of 10/04/2017 Sig: PRAVASTATIN 20 MG TABLET Take 1 tablet by mouth daily * AMLODIPINE 5 MG TABLET Take 1 tablet by mouth once d* PANTOPRAZOLE 40 MG TABLET,DEL* Take 1 tablet by mouth once d* ASPIRIN 81 MG TABLET,DELAYED * Take 1 tablet by mouth once d* PIRFENIDONE 267 MG CAPSULE Take three (3) capsules by mo* CEFUROXIME AXETIL 250 MG TABL* Take 1 tablet by mouth twice * Problem List As Of Date 10/04/2017 Noted Resolved IPF (idiopathic pulmonary fibrosis) ([facility]) [J84.*INVALID FOR* CKD (chronic kidney disease) [N18.9] INVALID FOR* Hoarse voice quality [R49.0] INVALID FOR* GERD (gastroesophageal reflux disease) [K21.9] INVALID FOR* HTN (hypertension) [I10] INVALID FOR*11/07/2016 Gammopathy, 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 BPH (benign prostatic hyperplasia) [N40.0] INVALID FOR* Family history of ischemic heart disease [Z82.4*INVALID FOR* Coronary artery disease involving tyonek dougherty*INVALID FOR* More... 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 DURATION OF SYMPTOMS: Since 09/30/17 ONSET OF SYMPTOMS: Gradual FEVER: Not checked but felt warm BODYACHES: No TIREDNESS: Mild HEADACHE: No EAR SYMPTOMS: None STUFFY NOSE: Yes POST NASAL DRIP: Sometimes SNEEZING: No SORE THROAT: started with a sore throat but gone now COUGH: Yes, with sputum production CHEST DISCOMFORT: Yes - described as congested SHORTNESS OF BREATH: Yes - at rest WHEEZING: No SPUTUM PRODUCTION: White OVER THE COUNTER MEDICATION PATIENT IS TAKING: No OTC use Prescriptions ordered this encounter Disp Refills Start End CEFUROXIME AXETIL 250 MG TABLET 20 t* 0 10/04/2017 10/14/2017 Route: ORAL Sig: Take 1 tablet by mouth twice daily for 10 days. Disposition: Return in about 6 months (around 04/03/2018). Follow-up and Disposition History Recorded Encounter Status:Closed by KEVIN MAI MD on 10/04/17 OBSOLETE Observed: 10/02/2017 Status: COMPLETED Source: [place] 12:00 AM [facility] REPOSITORY Refill (AGCARDWST) EVAN FLORES ([id number]) 1945 M Date Time Provider Department 10/02/17 ANTON ALEJANDROWST During your visit today, we recorded the following information about you: Delta Khalil RN, RN 10/02/2017 10:21 AM Signed Confirmed that patient will be seeing you in October as scheduled. Patient phones requesting refills as follows: Pending Prescriptions Disp Refills PRAVASTATIN 20 MG TABLET 90 tablet 3 Sig: Take 1 tablet by mouth daily at bedtime. ISAIAS: No Please review and advise. Delta Khalil RN Patient has been identified by name and date of : Yes Pending Prescriptions Disp Refills PRAVASTATIN 20 MG TABLET 90 tablet 3 Sig: Take 1 tablet by mouth daily at bedtime. ISAIAS: No RX INSTRUCTIONS: Patient aware RX will be sent to pharmacy. No need to notify patient. DANIELLE Stewart MD 10/02/2017 11:01 AM Signed Lab is due Anton Alejandro MD The following approved medication requests have been transmitted electronically. Signed Prescriptions Disp Refills pravastatin (PRAVACHOL) 20 mg tablet 90 tablet 3 Sig: Take 1 tablet by mouth daily at bedtime. ISAIAS: No Authorizing Provider: ANTON ALEJANDRO MD Adam Gilmor, RN, RN 10/02/2017 11:51 AM Signed Left detailed msg with instructions and asked patient to call back with any questions. Allergies As of Date: 10/02/2017 (No Known Allergies) Date Reviewed: 09/18/2017 Reviewed by: Sharla Underwood Ma - Fully Assessed Reason for Visit: Refill Request [94] Primary Visit Diagnosis:ASHD (arteriosclerotic heart disease) [I25.10] Order(s):pravastatin (PRAVACHOL) 20 mg tabletTake 1 tablet by mouth daily at bedtime.Disp: 90 tabletRfl: 3 LIPID PANEL BASIC [SQLIPB] Order #: [id number] FUTURE ALT/SGPT [SQALT] Order #: [id number] FUTURE CK CREATINE KINASE [SQCK] Order #: [id number] FUTURE Prescriptions as of 10/02/2017 Sig: PRAVASTATIN 20 MG TABLET Take 1 tablet by mouth daily * AMLODIPINE 5 MG TABLET Take 1 tablet by mouth once d* PANTOPRAZOLE 40 MG TABLET,DEL* Take 1 tablet by mouth once d* ASPIRIN 81 MG TABLET,DELAYED * Take 1 tablet by mouth once d* PIRFENIDONE 267 MG CAPSULE Take three (3) capsules by mo* Problem List As Of Date 10/02/2017 Noted Resolved IPF (idiopathic pulmonary fibrosis) ([facility]) [J84.*INVALID FOR* CKD (chronic kidney disease) [N18.9] INVALID FOR* Hoarse voice quality [R49.0] INVALID FOR* GERD (gastroesophageal reflux disease) [K21.9] INVALID FOR* HTN (hypertension) [I10] INVALID FOR*11/07/2016 Gammopathy, 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 BPH (benign prostatic hyperplasia) [N40.0] INVALID FOR* Family history of ischemic heart disease [Z82.4*INVALID FOR* Coronary artery disease involving tyonek dougherty*INVALID FOR* More... 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 Medications Discontinued During This Encounter pravastatin (PRAVACHOL) 20 mg tablet 10/02/2017 Class: Historical Med Route: ORAL Sig: Take 20 mg by mouth daily at bedtime. Disc: Reason for discontinue is not on file. Encounter Status:Closed by DELTA KHALIL on 10/02/17 MRI LUMBAR SPINE WO Observed: 10/01/2017 Status: F Source: [place] 8:56 AM [facility] REPOSITORY * * *Final Report* * * DATE OF EXAM: Oct 01 2017 8:56AM WR [id number] - MRI LUMBAR SPINE WO IVCON / PROCEDURE REASON: multiple diagnoses * * * * Physician Interpretation * * * * MRI LUMBAR SPINE WO IVCON HISTORY: Monoclonal gammopathy, Deforming dorsopathy, unspecified Radiculopathy, lumbar region. Worsening low back pain radiating down the left lower extremity. History of multiple compression fractures. COMPARISON: Lumbar radiographs 06/10/2017, lumbar radiographs 06/21/2015. TECHNIQUE: Routine lumbosacral spine MR protocol without gadolinium. RESULT: MR LUMBAR: Counting reference: Lumbosacral junction. For the purposes of this report, L5-S1 is considered the last lumbar type disc space and L4-5 is considered the level of the iliac crest. Alignment: There is accentuated kyphosis at the thoracolumbar junction from compression deformities. Minimal rightward curvature of the lumbar spine centered at L3. Alignment is otherwise within normal limits. Bone marrow signal/fracture: There is an acute/subacute compression fracture involving the T12 vertebral body with associated irregularity and marrow edema along the superior endplate and approximately 30% height loss. No significant bony retropulsion or canal stenosis. Findings are new compared to 06/10/2017. There is also vertebral body height loss of approximately 50% and superior endplate deformity at the L2 vertebral body with associated adjacent marrow edema suggesting acute/subacute on chronic compression fracture. Findings are new since 06/10/2017. There is no bony retropulsion or significant canal stenosis. Other multilevel remote compression deformities with up to 50% height loss involving the L1, L3, L5 vertebral bodies, which are not significantly changed from 06/10/2017. Type I signal degenerative endplate marrow changes on the left at L3-L4. Conus: The conus is within normal limits of signal intensity and morphology. Paraspinal soft tissues: Atrophy of the right kidney. Multiple small T2 hyperintense cysts in both kidneys, likely renal cysts. Lower thoracic spine: At T10-T11, mild to moderate bilateral neural foraminal stenosis from facet hypertrophy. Mild canal stenosis from posterior disc bulging without significant impact on the distal cord. At T11-T12, disk-osteophyte complex and facet/ligamentous hypertrophy causing mild to moderate bilateral neural foraminal narrowing. Mild canal stenosis from posterior disc osteophyte complex. T12-L1: Minimal canal stenosis from compression deformity. Bilateral neural foramina are patent. L1-L2: Disc osteophyte complex and facet/ligamentous hypertrophy causing mild canal narrowing and mild right neural foraminal narrowing. L2-L3: Disc osteophyte complex and facet/ligamentous hypertrophy causing mild canal narrowing. Neural foramina are patent. L3-L4: Disc bulging and facet subluxation and hypertrophy results in effacement of the lateral recesses, moderate canal narrowing, moderate to severe right neural foraminal narrowing, moderate left neural foraminal narrowing. L4-L5: Diffuse disc bulging, and facet/ligamentous hypertrophy results in effacement of the lateral recesses, moderate to severe canal narrowing and mild bilateral neuroforaminal narrowing. L5-S1: Mild disc bulging without impact on the thecal sac. Bilateral neural foramina are patent. Sacrum and iliac wings: The visualized sacrum and iliac wings are within normal limits. IMPRESSION: Interval development of acute/subacute compression deformities at T12 and L2 compared to 06/10/2017. No significant bony retropulsion or canal stenosis. Multilevel remote compression deformities involving L1, L3, L5, not significantly changed from 06/10/2017. Multilevel degenerative changes, worst at L3-L4 and L4-L5. Hairspring Ii Inspector: GOLDEN Transcribe Date/Time: Oct 01 2017 9:10A Dictated by : JANE ROSALES MD This examination was interpreted and the report reviewed and electronically signed by: SPARKLE FERREIRA MD on Oct 01 2017 10:23AM EST [id number] PROGRESS Observed: 10/01/2017 Status: COMPLETED Source: [place] 8:40 AM [facility] REPOSITORY HNO ID: [id number] Author: Nichole Luther Service: (none) Author Type: (none) Type: Progress Notes Filed: 10/01/2017 8:40 AM Note Text: Radiology Service Progress Note PATIENT NAME: Evan Flores DATE OF SERVICE: October 01, 2017 TIME: 8:40 AM PATIENT IDENTITY VERIFICATION COMPLETED USING TWO (2) METHODS: Patient confirmed name verbally and Date of . PATIENT GENDER DATA: Male PATIENT RELEVANT IMPLANT DATA REVIEWED: Yes RADIOLOGY DEPARTMENT: MR; Exam(s) Completed: Spine: Lumbar spine PERIPHERAL IV DATA: Not applicable SIGNED BY: Nichole Phillip Rt October 01, 2017 8:40 AM PROGRESS Observed: 09/18/2017 Status: COMPLETED Source: [place] 12:24 PM [facility] [place] REPOSITORY HNO ID: [id number] Author: Kevin Mai Service: (none) Author Type: Physician Type: Progress Notes Filed: 09/18/2017 12:35 PM Note Text: Patient presents with: Back Pain: follow up S: patient presents for follow up. Seen in May and had physical therapy. Xray showed remote compression fractures. Treated with prednisone twice and it felt better shortly after each time. Having worsening pain. No numbness or tingling up until the last few days. Now going down the left leg. No issues controlling bowel or bladder. MEDICATIONS: Current Outpatient Prescriptions: amLODIPine (NORVASC) 5 mg tablet Take 1 tablet by mouth once daily. pantoprazole DR (PROTONIX) 40 mg tablet Take 1 tablet by mouth once daily. pravastatin (PRAVACHOL) 20 mg tablet Take 20 mg by mouth daily at bedtime. aspirin, enteric coated (ECOTRIN LOW STRENGTH) 81 mg EC tablet Take 1 tablet by mouth once daily. pirfenidone (ESBRIET) 267 mg capsule Take three (3) capsules by mouth three (3) times daily. No current facility-administered medications for this visit. 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 - GERD (gastroesophageal reflux disease) - HTN (hypertension) - Hyperglycemia - IPF (idiopathic pulmonary fibrosis) (HCC) diagnosed December 2013 - Renal insufficiency PAST SURGICAL HISTORY Procedure Laterality Date - INGUINAL HERNIA REPAIR HX Right - LUNG BIOPSY HX 03/2014 - PAST SURGICAL HISTORY OF cardiac stent x 1 FAMILY HISTORY Problem Relation Age of Onset - Diabetes Mother - Hypertension Mother - Heart Mother heart failure - pulmonary fibrosis [OTHER] Mother sister as well - Hypertension Father - Seizures Father - COPD Father - pulmonary fibosis [OTHER] Sister lung disease,lung transplant - Heart Brother [place], s/p stent - Lung Disease [OTHER] Brother Social History Marital status: Single Spouse name: Years of education: Number of children: 0 Social History Main Topics Smoking status: Never Smoker Smokeless status: Never Used Alcohol use: Yes 6.0 - 16.5 oz/week 2 Cans of Beer (12oz), 2 - 3 Mixed Drinks per week Comment: ocas Drug use: No Sexual activity: No Reviewed current medications, allergies, past medical history, surgical history, family history and social history today. REVIEW OF SYSTEMS All other reviewed and negative other than HPI. HEALTH MAINTENANCE: Reviewed health maintenance issues today and recommended the following in detail. TETANUS due on 1955 ADULT PREVNAR-13 due on 2009 COLORECTAL CANCER SCREENING,SEE MODIFIER due on 09/15/2017 VITALS: BP 132/78 Pulse 68 Resp 20 Last 4 Encounter Wt Readings: Date: Wt: 07/23/2017 82.6 kg (182 lb) 07/16/2017 81.5 kg (179 lb 9.6 oz) 06/10/2017 81.6 kg (180 lb) 05/07/2017 81.6 kg (179 lb 14.4 oz) PHYSICAL EXAMINATION: General appearance: uncomfortable. On oxygen. Back: Normal exam, negative findings: symmetric, positive findings: limitation of motion - flexion: moderate and extension: moderate, negative DTR's tender over lumbar spine. Extremities: No deformities, edema, skin discoloration, clubbing or cyanosis. Good capillary refill. Musculoskeletal: No joint swelling, deformity, or tenderness Neuro: normal dtr's Normal sensory and motor exam. ASSESSMENT/PLAN: 1. Stage 3 chronic kidney disease - ICD9: 585.3, ICD10: N18.3 (primary diagnosis) - labs stable. 2. Gammopathy, monoclonal - ICD9: 273.1, ICD10: D47.2 - given persistence of findings. Recheck mri - MRI LUMBAR SPINE WO IVCON 3. Compression deformity of vertebra - ICD9: 738.5, ICD10: M43.9 - MRI LUMBAR SPINE WO IVCON 4. Lumbar radiculopathy - ICD9: 724.4, ICD10: M54.16 Chronic low back pain - Ice for localized tenderness - Follow up in 2 weeks or sooner if symptoms persist or worsen - MRI LUMBAR SPINE WO IVCON - PREDNISONE 10 MG TABLET Kevin Mai MD CNOV Observed: 09/18/2017 Status: COMPLETED Source: [place] 11:20 AM [facility] [place] REPOSITORY Office Visit (FAMPWS) EVAN FLORES ([id number]) 1945 M Date Time Provider Department 09/18/17 11:20 AM KEVIN MAI During your visit today, we recorded the following information about you: Pulse Respiration Blood pressure 68/minute 20/minute 132/78 Sharla Yasmine Rangel 09/18/2017 12:06 PM Signed BACK PAIN: Patient follows up with lower back pain. Patient has finished physical therapy. Last course of prednisone was given on 08/30/17. Patient still c/o pain, now with radiating pain down his left leg. He describes the pain as a tightness and sharp. He rates his pain at a 8. Kevin Mai MD 09/18/2017 12:35 PM Signed Patient presents with: Back Pain: follow up S: patient presents for follow up. Seen in May and had physical therapy. Xray showed remote compression fractures. Treated with prednisone twice and it felt better shortly after each time. Having worsening pain. No numbness or tingling up until the last few days. Now going down the left leg. No issues controlling bowel or bladder. MEDICATIONS: Current Outpatient Prescriptions: amLODIPine (NORVASC) 5 mg tablet Take 1 tablet by mouth once daily. pantoprazole DR (PROTONIX) 40 mg tablet Take 1 tablet by mouth once daily. pravastatin (PRAVACHOL) 20 mg tablet Take 20 mg by mouth daily at bedtime. aspirin, enteric coated (ECOTRIN LOW STRENGTH) 81 mg EC tablet Take 1 tablet by mouth once daily. pirfenidone (ESBRIET) 267 mg capsule Take three (3) capsules by mouth three (3) times daily. No current facility-administered medications for this visit. 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 - GERD (gastroesophageal reflux disease) - HTN (hypertension) - Hyperglycemia - IPF (idiopathic pulmonary fibrosis) (HCC) diagnosed December 2013 - Renal insufficiency PAST SURGICAL HISTORY Procedure Laterality Date - INGUINAL HERNIA REPAIR HX Right - LUNG BIOPSY HX 03/2014 - PAST SURGICAL HISTORY OF cardiac stent x 1 FAMILY HISTORY Problem Relation Age of Onset - Diabetes Mother - Hypertension Mother - Heart Mother heart failure - pulmonary fibrosis [OTHER] Mother sister as well - Hypertension Father - Seizures Father - COPD Father - pulmonary fibosis [OTHER] Sister lung disease,lung transplant - Heart Brother [place], s/p stent - Lung Disease [OTHER] Brother Social History Marital status: Single Spouse name: Years of education: Number of children: 0 Social History Main Topics Smoking status: Never Smoker Smokeless status: Never Used Alcohol use: Yes 6.0 - 16.5 oz/week 2 Cans of Beer (12oz), 2 - 3 Mixed Drinks per week Comment: ocas Drug use: No Sexual activity: No Reviewed current medications, allergies, past medical history, surgical history, family history and social history today. REVIEW OF SYSTEMS All other reviewed and negative other than HPI. HEALTH MAINTENANCE: Reviewed health maintenance issues today and recommended the following in detail. TETANUS due on 1955 ADULT PREVNAR-13 due on 2009 COLORECTAL CANCER SCREENING,SEE MODIFIER due on 09/15/2017 VITALS: BP 132/78 Pulse 68 Resp 20 Last 4 Encounter Wt Readings: Date: Wt: 07/23/2017 82.6 kg (182 lb) 07/16/2017 81.5 kg (179 lb 9.6 oz) 06/10/2017 81.6 kg (180 lb) 05/07/2017 81.6 kg (179 lb 14.4 oz) PHYSICAL EXAMINATION: General appearance: uncomfortable. On oxygen. Back: Normal exam, negative findings: symmetric, positive findings: limitation of motion - flexion: moderate and extension: moderate, negative DTR's tender over lumbar spine. Extremities: No deformities, edema, skin discoloration, clubbing or cyanosis. Good capillary refill. Musculoskeletal: No joint swelling, deformity, or tenderness Neuro: normal dtr's Normal sensory and motor exam. ASSESSMENT/PLAN: 1. Stage 3 chronic kidney disease - ICD9: 585.3, ICD10: N18.3 (primary diagnosis) - labs stable. 2. Gammopathy, monoclonal - ICD9: 273.1, ICD10: D47.2 - given persistence of findings. Recheck mri - MRI LUMBAR SPINE WO IVCON 3. Compression deformity of vertebra - ICD9: 738.5, ICD10: M43.9 - MRI LUMBAR SPINE WO IVCON 4. Lumbar radiculopathy - ICD9: 724.4, ICD10: M54.16 Chronic low back pain - Ice for localized tenderness - Follow up in 2 weeks or sooner if symptoms persist or worsen - MRI LUMBAR SPINE WO IVCON - PREDNISONE 10 MG TABLET Kevin Mai MD Referring Provider: SELF [200] Allergies As of Date: 09/18/2017 (No Known Allergies) Date Reviewed: 09/18/2017 Reviewed by: Sharla Underwood Ma - Fully Assessed Reason for Visit: Back Pain [12] Cmt: follow up Reason For Visit History Recorded Primary Visit Diagnosis:Stage 3 chronic kidney disease [N18.3] Other Visit Diagnoses:Gammopathy, monoclonal [D47.2] Compression deformity of vertebra [M43.9] Lumbar radiculopathy [M54.16] Order(s):MRI LUMBAR SPINE WO IVCON [[id number]] Order #: [id number] FUTURE predniSONE (DELTASONE) 10 mg tabletTake 4 tabs daily x 3 days, then 3 tabs x 3 days, 2 tabs x 3 days, then 1 tab x3 days with food.Disp: 30 tabletRfl: 0 Prescriptions as of 09/18/2017 Sig: AMLODIPINE 5 MG TABLET Take 1 tablet by mouth once d* PANTOPRAZOLE 40 MG TABLET,DEL* Take 1 tablet by mouth once d* PRAVASTATIN 20 MG TABLET Take 20 mg by mouth daily at * ASPIRIN 81 MG TABLET,DELAYED * Take 1 tablet by mouth once d* PIRFENIDONE 267 MG CAPSULE Take three (3) capsules by mo* PREDNISONE 10 MG TABLET Take 4 tabs daily x 3 days, t* Problem List As Of Date 09/18/2017 Noted Resolved IPF (idiopathic pulmonary fibrosis) ([facility]) [J84.*INVALID FOR* CKD (chronic kidney disease) [N18.9] INVALID FOR* Hoarse voice quality [R49.0] INVALID FOR* GERD (gastroesophageal reflux disease) [K21.9] INVALID FOR* HTN (hypertension) [I10] INVALID FOR*11/07/2016 Gammopathy, 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 BPH (benign prostatic hyperplasia) [N40.0] INVALID FOR* Family history of ischemic heart disease [Z82.4*INVALID FOR* Coronary artery disease involving tyonek dougherty*INVALID FOR* More... 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 Patient has finished physical therapy. Last course of prednisone was given on 08/30/17. Patient still c/o pain, now with radiating pain down his left leg. He describes the pain as a tightness and sharp. He rates his pain at a 8. Prescriptions ordered this encounter Disp Refills Start End PREDNISONE 10 MG TABLET 30 t* 0 09/18/2017 09/30/2017 Sig: Take 4 tabs daily x 3 days, then 3 tabs x 3 days, 2 tabs x 3 days, then 1 tab x3 days with food. Disposition: Return if symptoms worsen or fail to improve. Follow-up and Disposition History Recorded Encounter Status:Closed by KEVIN MAI MD on 09/18/17 PROGRESS Observed: 09/04/2017 Status: COMPLETED Source: [place] 9:52 AM [facility] [place] REPOSITORY [facility] ID: [id number] Author: Sina (Pt) Ciaran Service: (none) Author Type: Physical Therapist Type: Progress Notes Filed: 09/06/2017 1:57 PM Note Text: Episode Visit Count: 6 Start of Care Date: 08/06/17 Onset Date: 05/06/17 Plan of Care Certification Date: 08/06/17 [facility] PHYSICAL THERAPY PROGRESS REPORT PLAN OF CARE UPDATE: Assessment: Evan Flores exhibits improvements in pain level, tolerance for exercises, and overall functional mobility including transfers and standing/walking. He continues to be limited with walking in the house, stair negotiation, bending and lifting. He is progressing slower than expected towards his therapy goals as demonstrated by: pain levels, documented subjective information on progress and documented objective information regarding overall function. He will benefit from continued skilled therapy requiring manual lumbar traction, and progressive core strengthening exercises, as well as body mechanics training in order to improve the remaining functional deficits and decrease pain. Functional gains: Improved ability to perform transfers Improved sleep Increased independence with HEP Decreased intensity of pain Decreased frequency of pain Goals for Episode of Care created on through Goals for Episode of Care: created on 08/06/17 through 10/06/17 Independent in home exercises. Partially met Patient will decrease pain rating by 2 points to meet minimal clinical important difference for numeric pain rating scale. Partially met Restore pain-free lumbar ROM to WNL to allow for improved functional mobility and tolerance for standing and walking Not met Stand / Walk As needed for ADLs without pain/symptoms. Not met Improve Modified Oswestry Pain Questionnaire (LBP) by 6 points (12%) to indicate a Minimal Clinical Important Difference. Patient will improve his/her AM-PAC T-scale score by 4 points to indicate a Minimal Clinical Important Difference. G CODE REPORTING Based on clinical assessment and the score on the AM-PAC Scale Score Assessment Tool, the G code and corresponding severity modifiers are documented below. Evaluation: 08/06/2017 Current Status: Mobility: Walking and Moving Around: G8978 CK 40-59% impaired Goal Status: Mobility: Walking and Moving Around: G8979 CJ 20-39% impaired SUBJECTIVE: Pt got meds from Dr Mai for the back flare up last week and it significantly calmed things down. Pain is no longer sharp and more of an intermittent ache. Pt will resume exercises at home tomorrow as he was fearful of doing them and causing another flare up of pain. Overall pt has seen improved tolerance for standing, walking, and exercises. Sitting and lying are also better. Standing up first thing in the morning is the thing that bothers him most currently. . Pain Score: 4/10 Pain Location: Back Description: Aching Frequency: Continuous OBJECTIVE MEASURES WITH LEVEL OF FUNCTION: Repeated Test Movements - Lumbar RFIL - Symptoms During: decreases RFIL - Symptoms After: better TREATMENT: Therapeutic Exercise: 1: RFIL 5x1 minute holds, with 1 minute rest breaks in between 2: SciFit x5 minutes at pt selected speed, subjective taken at this time 3: TA bracing bent knee fall outs x12 4: TA bracing with 2-3 sec holds x12 Skilled Intervention: Patient was educated in proper exercise technique and purpose for exercises. Skilled judgment was provided in selection of appropriate interventions. Manual Therapy: 1: Manual lumbar traction with belt x10 minutes with pull to patient tolerance. 2: STM with foam roller to lumbar spine and upper glutes x15 minutes with push to pt tolerance Skilled Intervention: Manual skills to improve joint mobility, ROM, and decrease pain. Utilized anatomy knowledge of the therapist, and assessment of patient's response to intervention. Billing: [facility]: Therapeutic Exercise (60174): 1:1 time: 14 minutes (1 unit: 8-22 mins) Manual Therapy ([id number]): 1:1 time: 25 minutes (2 units: 23- 37 mins) Total time: 39 minutes Sina Wagoner PT CNTHERAPY Observed: 09/04/2017 Status: COMPLETED Source: [place] 9:45 AM [facility] [place] REPOSITORY OT/PT/Speech Visit (PTWS) EVAN FLORES ([id number]) 1945 M Date Time Provider Department 09/04/17 9:45 AM SINA WAGONER (PT) PTWS Date Time Provider Department Center 09/04/2017 9:45 AM [id number], SEAN (PT)PTWS PENDING SALE TO [facility] Reason for Visit: PT Progress Note [1596] Physical Therapy [503] PT Discharge [752] Reason For Visit History Recorded Primary Visit Diagnosis:Acute midline low back pain, with sciatica presence unspecified [M54.5] Allergies As of Date: 09/04/2017 (No Known Allergies) Date Reviewed: 07/23/2017 Reviewed by: Lino Toribio - Fully Assessed Prescriptions as of 09/04/2017 Sig: PREDNISONE 10 MG TABLET Take 4 tabs daily x 3 days, t* PANTOPRAZOLE 40 MG TABLET,DEL* Take 1 tablet by mouth once d* X AMLODIPINE 5 MG TABLET Take 1 tablet by mouth once d* ASPIRIN 81 MG TABLET,DELAYED * Take 1 tablet by mouth once d* X PRAVASTATIN 20 MG TABLET Take 20 mg by mouth daily at * PIRFENIDONE 267 MG CAPSULE Take three (3) capsules by mo* Progress Notes: Sina Wagoner PT 09/06/2017 1:57 PM Signed Episode Visit Count: 6 Start of Care Date: 08/06/17 Onset Date: 05/06/17 Plan of Care Certification Date: 08/06/17 REHABILITATION AND SPORTS THERAPY PHYSICAL THERAPY PROGRESS REPORT PLAN OF CARE UPDATE: Assessment: Evan Flores exhibits improvements in pain level, tolerance for exercises, and overall functional mobility including transfers and standing/walking. He continues to be limited with walking in the house, stair negotiation, bending and lifting. He is progressing slower than expected towards his therapy goals as demonstrated by: pain levels, documented subjective information on progress and documented objective information regarding overall function. He will benefit from continued skilled therapy requiring manual lumbar traction, and progressive core strengthening exercises, as well as body mechanics training in order to improve the remaining functional deficits and decrease pain. Functional gains: Improved ability to perform transfers Improved sleep Increased independence with HEP Decreased intensity of pain Decreased frequency of pain Goals for Episode of Care created on through Goals for Episode of Care: created on 08/06/17 through 10/06/17 Independent in home exercises. Partially met Patient will decrease pain rating by 2 points to meet minimal clinical important difference for numeric pain rating scale. Partially met Restore pain-free lumbar ROM to WNL to allow for improved functional mobility and tolerance for standing and walking Not met Stand / Walk As needed for ADLs without pain/symptoms. Not met Improve Modified Oswestry Pain Questionnaire (LBP) by 6 points (12%) to indicate a Minimal Clinical Important Difference. Patient will improve his/her AM-PAC T-scale score by 4 points to indicate a Minimal Clinical Important Difference. G CODE REPORTING Based on clinical assessment and the score on the AM-PAC Scale Score Assessment Tool, the G code and corresponding severity modifiers are documented below. Evaluation: 08/06/2017 Current Status: Mobility: Walking and Moving Around: G8978 CK 40-59% impaired Goal Status: Mobility: Walking and Moving Around: G8979 CJ 20-39% impaired SUBJECTIVE: Pt got meds from Dr Mai for the back flare up last week and it significantly calmed things down. Pain is no longer sharp and more of an intermittent ache. Pt will resume exercises at home tomorrow as he was fearful of doing them and causing another flare up of pain. Overall pt has seen improved tolerance for standing, walking, and exercises. Sitting and lying are also better. Standing up first thing in the morning is the thing that bothers him most currently. . Pain Score: 4/10 Pain Location: Back Description: Aching Frequency: Continuous OBJECTIVE MEASURES WITH LEVEL OF FUNCTION: Repeated Test Movements - Lumbar RFIL - Symptoms During: decreases RFIL - Symptoms After: better TREATMENT: Therapeutic Exercise: 1: RFIL 5x1 minute holds, with 1 minute rest breaks in between 2: SciFit x5 minutes at pt selected speed, subjective taken at this time 3: TA bracing bent knee fall outs x12 4: TA bracing with 2-3 sec holds x12 Skilled Intervention: Patient was educated in proper exercise technique and purpose for exercises. Skilled judgment was provided in selection of appropriate interventions. Manual Therapy: 1: Manual lumbar traction with belt x10 minutes with pull to patient tolerance. 2: STM with foam roller to lumbar spine and upper glutes x15 minutes with push to pt tolerance Skilled Intervention: Manual skills to improve joint mobility, ROM, and decrease pain. Utilized anatomy knowledge of the therapist, and assessment of patient's response to intervention. Billing: [facility]: Therapeutic Exercise (84409): 1:1 time: 14 minutes (1 unit: 8-22 mins) Manual Therapy (03213): 1:1 time: 25 minutes (2 units: 23- 37 mins) Total time: 39 minutes Sina Wagoner, PT Sina Wagoner PT 11/25/2017 2:37 PM Signed [facility] PHYSICAL THERAPY DISCONTINUANCE OF CARE Plan of Care Period: Start of Care Date: 08/06/17 Last Visit Date: 09/04/2017 Therapy Program: The following is a summary of the interventions provided for this episode of care; Therapeutic exercise, Manual therapy, Self- retirement management and Patient/Family/Caregiver Education Assessment: The following is the goal status: Independent in home exercises. Partially met Patient will decrease pain rating by 2 points to meet minimal clinical important difference for numeric pain rating scale. Partially met Restore pain-free lumbar ROM to WNL to allow for improved functional mobility and tolerance for standing and walking Not met Stand / Walk As needed for ADLs without pain/symptoms. Not met Improve Modified Oswestry Pain Questionnaire (LBP) by 6 points (12%) to indicate a Minimal Clinical Important Difference. Patient will improve his/her AM-PAC T-scale score by 4 points to indicate a Minimal Clinical Important Difference. G CODE REPORTING Based on clinical assessment and the score on the AM-PAC Scale Score Assessment Tool, the G code and corresponding severity modifiers are documented below. Evaluation: 08/06/2017 Current Status: Mobility: Walking and Moving Around: G8978 CK 40-59% impaired Goal Status: Mobility: Walking and Moving Around: G8979 CJ 20-39% impaired Based on the most recent progress report, patient was progressing slower than expected toward functional goals based on pain levels and documented subjective information on progress. Reason for Discontinuation of Care: Patient has not returned to therapy or scheduled additional follow-up appointments. Sina Wagoner PT ALLERGIES ALLERGIES DATE TYPE / CODE NAME / CODE REACTION SEVERITY SOURCE 08/25/2018 Drug No Known Unknown [facility] Allergy/416 Allergies/U27480 Hospital 315258(SNOM 0388(RXNORM) Repository ED CT) Drug NO KNOWN [facility] Class/34994 ALLERGIES Other [place] 1003(SNOMED Repository CT) NG/[id number] NO KNOWN [facility] 6(SNOMED ALLERGIES [facility] CT) Repository ENCOUNTERS ENCOUNTERS ADMIT/DISCHARGE ACCOUNT NUMBER ADMITTING ENCOUNTER LOCATION SOURCE CLASS 09/16/2018/09/16/20 [id number] Amb[facility] [place] Repository 09/11/2018/09/11/20 [id number] [facility] [place] Rep[facility] 09/10/2018/09/10/20 [id number] [facility] [place] Repository 09/09/2018/09/09/20 [id number] [facility] [place] Repository 09/05/2018/09/05/20 [id number] [facility] [place] Repository 09/05/2018/09/09/20 [id number] [facility] [place] Repository 09/05/2018/09/08/20 [id number] [facility] [place] Repository 09/04/2018/09/05/20 [id number] [facility] [place] Repository 09/04/2018/09/04/20 [id number] [facility] [place] Repository 09/02/2018/09/03/20 [id number] [facility] [place] Repository 09/02/2018/09/02/20 [id number] [facility] [place] Repository 08/28/2018/08/28/20 [id number] [facility]ulatory [place] [facility] ding:ENRoom: Repository AC10 08/26/2018/08/26/20 [id number] [facility] [place] Repository 08/19/2018/08/19/20 [id number] [facility] [place] Repository 08/14/2018/08/14/20 [id number] [facility] [place] Repository 08/12/2018/08/12/20 [id number] [facility] [place] Repository 08/07/2018/08/07/20 [id number] [facility] [place] Repository 08/05/2018/08/05/20 [id number] [facility] [place] Repository 07/29/2018/07/29/20 [id number] [facility] [place] Repository 07/24/2018/07/24/20 [id number] [facility] [place] Repository 07/22/2018/07/22/20 [id number] [facility] [place] Repository 07/17/2018/07/17/20 [id number] [facility] [place] Repository 07/14/2018/07/16/20 [id number] [facility] [place] Rep[facility] 07/11/2018/07/14/20 [id number] [facility] [place] Repository 07/10/2018/07/10/20 [id number] [facility] [place] Repository 07/08/2018/07/10/20 [id number] [facility] [place] Repository 07/08/[id number] [facility] MEDICAL Repository CENTERBuildi ng:CAGWS 07/04/2018/07/04/20 [id number] [facility] [place] Repository 07/03/2018/07/03/20 [id number] [facility] [place] Repository 07/01/2018/07/01/20 [id number] [facility] [place] Repository 06/26/2018/06/26/20 [id number] [facility] [place] Repository 06/24/2018/06/24/20 [id number] [facility] [place] Repository 06/24/2018 [id number] [facility] [place] Repository 06/19/2018/06/19/20 [id number] [facility] [place] Repository 06/17/2018/06/17/20 [id number] [facility] [place] Repository 06/12/2018/06/12/20 [id number] [facility] [place] Repository 06/10/2018/06/10/20 [id number] [facility] [place] Repository 06/05/2018/06/05/20 [id number] [facility] [place] Repository 06/03/2018/06/03/20 [id number] [facility] [place] Repository 05/29/2018/05/29/20 [id number] [facility] [place] Repository 05/27/2018/05/27/20 [id number] [facility] [place] Repository 05/23/2018/05/26/20 [id number] [facility] [place] Repository 05/23/2018/05/23/20 [id number] [facility] [place] Repository 05/23/2018/05/27/20 [id number] [facility] [place] Repository 05/21/2018/05/21/20 [id number] [facility] [place] Repository 05/20/2018/05/20/20 [id number] [facility] [place] Repository 05/15/2018/05/15/20 [id number] [facility] [place] Repository 05/14/2018/05/14/20 [id number] [facility] [place] Repository 05/13/2018/05/13/20 [id number] [facility] [place] Repository 05/08/2018/05/08/20 [id number] [facility] [place] Repository 05/05/2018/05/05/20 [id number] [facility] [place] Repository 05/01/2018/05/01/20 [id number] [facility] [place] Repository 04/24/2018/04/24/20 [id number] [facility] [place] Repository 04/23/2018 [id number] [facility] [place] Repository 04/22/2018/04/22/20 [id number] [facility] [place] Repository 04/17/2018/04/17/20 [id number] [facility] [place] Repository 04/15/2018/04/15/20 [id number] [facility] [place] Repository 04/10/2018/04/10/20 [id number] [facility] [place] Repository 04/09/2018/04/09/20 [id number] [facility] [place] Repository 04/08/2018/04/08/20 [id number] [facility] [place] Repository 04/03/2018/04/03/20 [id number] [facility] [place] Repository 04/01/2018/04/01/20 [id number] [facility] [place] Repository 03/27/2018/03/27/20 [id number] [facility] [place] Repository 03/25/2018/03/25/20 [id number] [facility] [place] Repository 03/21/2018/03/21/20 [id number] [facility] [place] Repository 03/19/2018/03/19/20 [id number] [facility] [place] Repository 03/17/2018/03/17/20 [id number] [facility] [place] Repository 03/13/2018/03/13/20 [id number] [facility] [place] Repository 03/11/2018/03/11/20 [id number] [facility] [place] Repository 03/06/2018/03/06/20 [id number] [facility] [place] Repository 03/04/2018/03/04/20 [id number] [facility] [place] Repository 02/27/2018/02/28/20 [id number] [facility] [place] Repository 02/25/2018/02/26/20 [id number] [facility] [place] Repository 02/21/2018/02/22/20 [id number] [facility] [place] Repository 02/19/2018/02/20/20 [id number] [facility] [place] Repository 02/13/2018/02/14/20 [id number] [facility] [place] Rep[facility] 02/13/2018/02/14/20 [id number] [facility] [place] Repository 02/06/2018/02/07/20 [id number] [facility] [place] Repository 02/04/2018/02/05/20 [id number] [facility] [place] Repository 01/30/2018/01/31/20 [id number] [facility] [place] Repository 01/28/2018/01/29/20 [id number] [facility] [place] Repository 01/23/2018/01/24/20 [id number] [facility] [place] Repository 01/22/2018/01/24/20 [id number] [facility] [place] Repository 01/21/2018/01/22/20 [id number] [facility] [place] Repository 01/16/2018/01/17/20 [id number] [facility] [place] Repository 01/14/2018/01/15/20 [id number] [facility] [place] Repository 01/14/2018/01/17/20 [id number] [facility] [place] Repository 01/09/2018/01/10/20 [id number] [facility] [place] Repository 01/07/2018/01/08/20 [id number] [facility] [place] Repository 01/06/2018/01/07/20 [id number] [facility] [place] Repository 01/02/2018/01/03/20 [id number] [facility] [place] Repository 12/31/2017/01/01/20 [id number] [facility] [place] Repository 12/27/2017/12/28/19 [id number] [facility] [place] Repository 12/26/2017/12/28/19 [id number] [facility] [place] Repository 12/26/2017/12/27/19 [id number] [facility] [place] Repository 12/24/2017/12/25/19 [id number] [facility] [place] Repository 12/19/2017/12/20/19 [id number] [facility] [place] Repository 12/17/2017/12/18/19 [id number] [facility] [place] Repository 12/12/2017/12/13/19 [id number] [facility] [place] Repository 12/10/2017/12/11/19 [id number] [facility] [place] Repository 12/05/2017/12/06/19 [id number] [facility] [place] Repository 12/04/2017/12/05/19 [id number] [facility] [place] Repository 12/03/2017/12/04/19 [id number] [facility] [place] Repository 11/29/2017/12/03/19 [id number] [facility] [place] Repository 11/28/2017/11/29/19 [id number] [facility]ulatory [facility] Other [place] Repository 11/26/2017/11/26/19 [id number] [facility] Other [place] Repository 11/08/2017/11/11/19 [id number] [facility] Main [place] Repository 11/08/2017/11/08/19 [id number] [facility] Main [place] Repository 11/08/2017/11/08/19 [id number] [facility] Main [place] Repository 11/08/2017/11/12/19 [id number] [facility] Main [place] Repository 11/07/2017/11/07/19 [id number] [facility]ulatory [facility] Main [place] Repository 11/07/2017/11/07/19 [id number] [facility]ulatory [facility] Other [place] Repository 11/07/2017/11/07/19 [id number] Ambulatory [address] MEDICAL Repository MALLORYBuildi ng:CAGWS 11/04/2017/11/04/19 [id number] [facility] Main [place] Repository 10/28/2017/10/28/19 [id number] [facility] [place] Repository 10/17/2017/10/17/19 [id number] [facility] [place] Repository 10/17/2017/10/18/19 [id number] [facility] Main [place] Repository 10/04/2017/10/04/19 [id number] [facility] [place] Repository 10/04/2017/10/04/19 [id number] [facility] Main [place] Repository 10/01/2017/10/01/19 [id number] Ambulatory [address] Repository 09/18/2017/09/18/20 [id number] Ambulatory [address] Repository 09/04/2017/09/09/20 [id number] Ambulatory [address] Repository PAYERS PAYERS ENCOUNTER GUARANTOR PAYER SUBSCRIBER SOURCE 08/28/2018 EVAN R Primary EVAN Mathur [id number] Insurance:MEDICARE NICHOLSONDOB: [facility] PART A BPolicy [id number], Number: Repository [place] [address]Wwe: [id number] Date:2018-07-24 (HP) 08/28/2018 Secondary EVAN Mathur Insurance:[facility] SHARED NICHOLSONDOB: [facility] SERVICESPolicy [id number] Number: Repository [id number] Date:[id number] [id number]: 08/28/2018 Tertiary NOT GIVENUNK Kevan Insurance:SELF PAY [facility]: Effective Repository Date:2018-07-24 07/08/2018 EVAN R Primary EVAN R [facility] NICHOLSONDOB: Insurance:MEDICARE A NICHOLSONDOB: [facility] [id number] AND BPolicy Number: [id number] [facility]ository [facility] [id number] [address], [place] Date: [address]Hld: (HP) 07/08/2018 Secondary EVAN R [facility] Insurance:GEHA ILDAOLSONDOB: [facility] 2NDPolicy Number: [id number] Repository [id number] Date: 11/07/2017 EVAN R Primary EVAN R [facility] NICHOLSONDOB: Insurance:MEDICARE A NICHOLSONDOB: [facility] [id number] AND BPolicy Number: [id number] Repository [facility] [id number] [address], [place] Date: [address]Mkx: (HP) 11/07/2017 Secondary EVAN [facility] Insurance:[facility] JARED: [facility]: [id number] [id number] Date:
== END 2018-08-28 07:50 | disposition home or self-care (01) ==
LOC: EN 05:21 → AC 05:23
PROVIDERS: Family Provider Family Medicine; PCP Family Medicine; Referring Provider Surgery; Visit Provider Surgery
PROC: 0DJD8ZZ Inspection of Lower Intestinal Tract, Via Natural or Artificial Opening Endoscopic (ICD-10-PCS; CPT 45378; principal; 2018-08-28 06:25)
DX: Z12.11 Encounter for screening for malignant neoplasm of colon (principal); K21.0 Gastro-esophageal reflux disease with esophagitis; K29.70 Gastritis, unspecified, without bleeding; J96.11 Chronic respiratory failure with hypoxia; D47.2 Monoclonal gammopathy; J84.112 Idiopathic pulmonary fibrosis; I25.10 Atherosclerotic heart disease of native coronary artery without angina pectoris; I12.9 Hypertensive chronic kidney disease with stage 1 through stage 4 chronic kidney disease, or unspecified chronic kidney disease; N18.9 Chronic kidney disease, unspecified; E78.00 Pure hypercholesterolemia, unspecified; M81.0 Age-related osteoporosis without current pathological fracture; Z99.81 Dependence on supplemental oxygen; Z95.5 Presence of coronary angioplasty implant and graft
CPT/HCPCS: 43239; G0121; 88305; 88342; J7120

== ENCOUNTER → 2020-07-13 13:40 | Inpatient (IN) | payer MEDICARE, BC, SELFPAY ==
[2020-07-13] VITALS (14 sets, daily range): BP systolic 139–169; BP diastolic 64–85; PULSE 69–102; RESP 18–35; TEMP 36.6–37.7; O2SAT 92–100; BMI 23.8; BMI 23.9; BMI 23.5
--- NOTE | 2020-07-13 13:53 | ED.VIS.GEN ---
History of Present Illness Chief Complaint: Shortness of Breath Informant: Patient Onset: Weeks Context: Gradual Onset Timing: Continuous Current Severity: Moderate Maximum Severity: Severe Narrative: The patient is a 75-year-old male with medical history significant for pulmonary fibrosis who is on nasal concentrator at all times that presents to the emergency department with cough, shortness of breath, fever, and chills. The patient stated symptoms are going on for about 2 weeks and he feels like they are getting worse. He has had to increase his oxygen at home. He states that he feels like he cannot catch his breath. He states he also feels like he has coughing fits. The patient is on 5 mg of prednisone daily which he is been compliant with. He denies any recent travel or sick exposure. He states that up until he started to get ill, he was in his normal state of health. 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 Prior similar symptoms: No Recent Illness/Hospitalization: No Past Medical History - Allergies and Home Meds Allergies/Adverse Reactions: Allergies No Known Allergies Allergy (Verified 08/25/18 09:36) Primary Care Physician: Kevin Sutton MD [Primary Care Provider] - Prior records reviewed: Yes Past Medical History: - - Pulmonary fibrosis, GERD Surgical History: noncontributory Smoking Status: Never smoker Review of Systems General: Reports: Chills, Fever. Denies: Sweats Eyes: Denies: Visual changes - bilaterally, Diplopia ENT: Denies: Rhinorrhea, Sore throat Cardiovascular: Denies: Chest pain, Palpitations Respiratory: Reports: Dyspnea, Cough. Denies: Dyspnea on exertion Gastrointestinal: Denies: Abdominal pain, Nausea, Vomiting, Diarrhea, Melena, Hematochezia Genitourinary: Denies: Dysuria, Hematuria, Frequency Musculoskeletal: Denies: Back pain, Extremity Pain Skin: Denies: Rash, Wounds Neurological: Denies: Headache, Weakness, Numbness Physical Exam Vital Signs/Narrative: Vital Signs Temp Pulse Resp BP Pulse Ox 07/13/20 13:45 99.9 F H 99 28 H 150/84 H 99 07/13/20 13:42 99.9 F H 102 H 35 H 153/85 H 99 Inital Vital Signs reviewed: Yes General: Well nourished, Well developed, No Acute Distress Head: Normocephalic, Atraumatic Eyes: Perrl, EOMI ENT: Moist mucous membranes, No rhinorrhea Neck: Supple, Nontender Cardiovascular: Regular rate, Regular rhythm, No murmurs Respiratory: No distress, Chest nontender, Diminished Abdomen: Soft, Nontender, Nondistended, Normal bowel sounds Back: Nontender, Normal Inspection Extremities: Nontender, No edema Skin: Normal color, No rash Neurological: Alert, Oriented x3, Cranial nerves II-XII grossly intact, Normal Strength, Normal Sensation Psychological: Normal affect, Normal Mood Diagnostic/Tx/Re-eval Clinical Impression(s) from Imaging Studies Chest X-Ray 07/13/20 15:08 IMPRESSION: Since prior study, there has been a progression of increased interstitial markings with areas of confluence at the lung bases worse on the left side. This may represent progressive pulmonary scarring versus superimposed infiltrate. Electronically Signed: Michael Gilmer, at 15:31 EDT , Service support , Abnormal Lab Results 07/13/20 07/13/20 07/13/20 13:55 13:55 13:55 WBC 11.2 H RBC 4.55 L Hgb 14.3 Hct 43.8 MCV 96.3 H MCH 31.4 MCHC 32.6 RDW Std Deviation 45.0 H RDW Coeff of Araseli 12.7 Plt Count 295 MPV 9.4 Immature Gran % (Auto) 0.500 Neut % (Auto) 82.3 H Lymph % (Auto) 4.7 L Bullock % (Auto) 10.7 H Eos % (Auto) 1.2 Baso % (Auto) 0.6 Absolute Neuts (auto) 9.2 H Absolute Lymphs (auto) 0.52 L Nucleated RBC % 0 Sodium 131 L Potassium 4.0 Chloride 95 L Carbon Dioxide 31.0 Anion Gap 5 BUN 10 Creatinine 1.26 Estim Creat Clear Calc 56.37 Est GFR (MDRD) Af Amer 72 Est GFR (MDRD) Non-Af 59 L BUN/Creatinine Ratio 7.9 L Glucose 84 Lactic Acid 1.2 Calcium 8.9 Total Bilirubin 0.40 AST 23 ALT 19 Alkaline Phosphatase 48 Total Protein 7.8 Albumin 3.4 Globulin 4.4 H Albumin/Globulin Ratio 0.8 L - Medical Decision Making The patient presents with worsening dyspnea, scant cough, fever, and chills. He does have underlying history of pulmonary fibrosis. He has decreased air movement with wheezing in all lung pastor. Metabolic work-up was pursued. Patient does have mild leukocytosis. He is also tachypneic, was tachycardic, and febrile. Patient underwent septic work-up. Chest x-ray does show worsening pulmonary fibrosis compared to old, with questionable infiltrate. The patient be covered for community-acquired pneumonia. Given his increased work of breathing and significant underlying pulmonary disease, I do feel that the most prudent plan of care would be for admission. The patient was discussed with the hospitalist who agrees. Impression 1. Community-acquired pneumonia 2. Sepsis 3. ED Disposition - Plan for ED Patient: Referrals: Kevin Sutton MD [Primary Care Provider] -
[2020-07-13 14:07] LABS: Absolute Lymphocyte Count 0.52 X10^3/uL (0.83-4.51); Absolute Neutrophil Count 9.2 X10^3/uL (2.0-7.7); Basophil# 0.07 X10^3/uL; Basophil% 0.6 % (0-1); Eosinophil# 0.13 X10^3/uL; Eosinophils% 1.2 % (0-5); Hematocrit 43.8 % (40-54); Hemoglobin 14.3 g/dL (13.0-16.5); Lymphocyte # 0.52 X10^3/ul (4.0); Lymphocyte % 4.7 % (19-41); Mean Corp Hgb Conc 32.6 g/dL (32-36); Mean Corpuscular Hgb 31.4 pg (27.0-32.0); Mean Corpuscular Volume 96.3 fL (80-94); Mean Platelet Vol. 9.4 fl (6.2-12.0); Monocyte% 10.7 % (0-10); NRBC Flagged by Analyzer 0 % (0-5); Neutrophil # 9.19 X10^3/uL (2.7-7.7); Neutrophil % 82.3 % (47-70); POSITIVE DIFFERENTIAL YES; Platelet Count 295 K/mm3 (150-450); RBC Distribution Width CV 12.7 % (11.6-14.6); Red Blood Count 4.55 M/mm3 (4.6-6.2); White Blood Count 11.2 K/mm3 (4.4-11.0)
[2020-07-13 14:08] LABS: Differential Indicated SCAN CRITERIA MET
[2020-07-13] MEDS: Acetaminophen 500 MG Tablet 1000 MG PO (14:20)
[2020-07-13] MEDS: 0.9% Normal Saline 1,000 ML 125 ML IV (14:20)
[2020-07-13 14:23] LABS: ALB/GLOB Ratio 0.8 RATIO (0.9-2.4); AST(SGOT) 23 U/L (15-37); Alanine Aminotransfer ALT/SGPT 19 U/L (16-61); Albumin, Serum 3.4 g/dL (3.2-5.0); Alkaline Phosphatase 48 U/L (45-117); Anion Gap 5 (5-15); BUN 10 mg/dL (7-18); BUN/Creat Ratio 7.9 RATIO (10-20); Calcium,Total 8.9 mg/dL (8.5-10.1); Chloride 95 mmol/L (98-107); Creatinine, Serum 1.26 mg/dL (0.70-1.30); EST Glomerular Filtration Rate 59 mL/min (>60); Est Glom Filt Rate - Afr Amer 72 mL/min (>60); Estimated Creatinine Clearance 56.37 ml/min; Globulin 4.4 g/dL (2.2-4.2); Glucose 84 mg/dL (74-106); Protein, Total 7.8 g/dL (6.4-8.2); Sodium Level 131 mmol/L (136-145)
[2020-07-13 14:40] LABS: Lactic Acid 1.2 mmol/L (0.4-1.9)
--- NOTE | 2020-07-13 15:08 | RAD_ITS ---
STUDY: X-RAY CHEST REASON FOR EXAM: Male, 75 years old. PT C/O SOB, COUGH, FEVER, CHILLS FOR TWO WEEKS. HX OF PULMONARY FIBROSIS TECHNIQUE: Single AP portable view of the chest. COMPARISON: Comparison is made with prior examination 07/03/2016. FINDINGS: EKG electrodes are seen. Since prior study, there has been progressive increased interstitial markings with areas of confluence more prominent at the left lung base. This may represent progressive pulmonary fibrosis although superimposed infiltrate cannot be ruled out. There is no demonstrated pleural abnormality. Normal size heart. Normal mediastinum and andrea. Normal visualized pulmonary arteries. Normal visualized aortic arch and descending thoracic aorta. Normal visualized thoracic spine. Normal visualized ribs, clavicles, and shoulders. There is no demonstrated abnormality of the visualized soft tissue structures of the upper abdomen. RAD/Chest 1 View (Portable) IMPRESSION: Since prior study, there has been a progression of increased interstitial markings with areas of confluence at the lung bases worse on the left side. This may represent progressive pulmonary scarring versus superimposed infiltrate. Electronically Signed: Michael Scherer, at 15:31 EDT , Service support ,
--- NOTE | 2020-07-13 16:16 | EKG12_ITS ---
Test Reason : SOB Blood Pressure : / mmHG Vent. Rate : 074 BPM Atrial Rate : 074 BPM P-R Int : 168 ms QRS Dur : 084 ms QT Int : 388 ms P-R-T Axes : 036 -07 008 degrees QTc Int : 430 ms Normal sinus rhythm Normal ECG Confirmed by CANDACE AVILES, SRINIVASA ([id number]), website/blog editor HALEY REZA ([id number]) on 07/18/2020 8:25:07 A M Referred By: ANGELO Confirmed By:MELVI MARIA MD
--- NOTE | 2020-07-13 16:19 | HP.PCM_ITS ---
Problem List (1) Hyperlipidemia Status: Chronic (2) Coronary artery disease Status: Chronic Comment: Status post stents. (3) Hypertension Status: Chronic (4) Pulmonary fibrosis Status: Chronic (5) Chronic respiratory failure Status: Chronic History of Present Illness Date of Admission: 07/13/20 Chief Complaint: Shortness of breath. The patient is a 75 year old M with past medical history as mentioned above presented to the emergency room because of shortness of breath. Symptoms started almost 2 weeks ago with gradually increasing shortness of breath, it was with minimal exertion, has been progressive, started to become even at rest, associated with dry cough as well as subjective fever and without aggravating or relieving factors. He does use home oxygen of up to 10 L because of chronic pulmonary fibrosis and chronic respiratory failure. He thinks that his breathing is getting progressively worse over the last couple of weeks without improvement. He denied chest pain, palpitation, dizziness or lightheadedness. He denied sick contacts or recent travel. He has been taking his prednisone 5 mg p.o. daily and is compliant with it. He does follow-up with pulmonology at [facility]. In the emergency department, he had spike of low-grade fever, was tachycardic, blood pressure was slightly elevated, pulse ox was 99% on 6 L. Routine blood work was remarkable for mild leukocytosis with lymphopenia and neutrophilia, sodium was 131. LFT was unremarkable. Lactic acid was normal. COVID-19 PCR is negative. Chest x-ray revealed increasing bilateral basilar infiltrate with confluence. EKG revealed normal sinus rhythm, no acute skin changes. He is being admitted for community-acquired pneumonia, sepsis and acute exacerbation of pulmonary fibrosis. Past Medical History Past Medical History (Chronic Problems): Chronic Problems Hyperlipidemia (Chronic) Coronary artery disease (Chronic) Status post stents. Hypertension (Chronic) Pulmonary fibrosis (Chronic) Chronic respiratory failure (Chronic) Allergies No Known Allergies Allergy (Verified 08/25/18 09:36) Home Medications: Ambulatory Orders Medication Instructions Recorded Amlodipine [Norvasc] 5 mg PO QHS 07/03/16 Pirfenidone [Esbriet] 801 mg PO TID 07/03/16 Aspirin E.C. [Ecotrin] 81 mg PO QHS 08/25/18 Calcium Citrate/Vitamin D3 1 tab PO DAILY 08/25/18 [Citracal-Vit D3 200 mg-250 Tab] Pravastatin Sodium [Pravachol] 20 mg PO QHS 08/25/18 Cholecalciferol (Vitamin D3) 2,000 unit PO QHS 07/13/20 [Vitamin D3] Levothyroxine Sodium 50 mcg PO DAILY 07/13/20 Prednisone 5 mg PO DAILY 07/13/20 Surgical History: herniorrhaphy Psychiatric History: No pertinent psych hx Lives: Alone Smoking Status: Never smoker Alcohol: None Drugs: None - *Family History Maternal History Items: No pertinent history Paternal History Items: No pertinent history Review of Systems Constitutional: Reports: Fever. Denies: Anorexia, Chills, Weakness, Fatigue Eyes: Denies: Blurred vision, Double vision, Drainage, Redness HEENT: Denies: Difficulty Hearing, Ear Pain, Eye Pain, Nasal Congestion, Sore Throat Cardiovascular: Denies: Chest Pain, Chest Pressure, Heaviness, Light Headedness, Palpitations, Syncope Respiratory: Reports: Cough, Shortness of Breath, Shortness of breath upon exertion. Denies: Sputum production, Wheezing Gastrointestinal: Denies: Abdominal Pain, Constipation, Diarrhea, Nausea, Vomiting Genitourinary: Denies: Dysuria, Frequency, Hematuria Musculoskeletal: Denies: Arm Pain, Back Pain, Foot Pain Skin: Denies: Dryness, Rash Neurological: Denies: Balance problems, Double vision, Change in Speech, Slurred speech, Focal weakness, Headaches Psychiatric: Denies: Anxiety, Depression Endocrine: Denies: Change in Body Habitus, Polydipsia, Polyuria VTE Information - Inpt Only VTE Present on Admission: No VTE Mechan Device Prophylaxis: None VTE Pharm Prophylaxis ordered?: Yes - Physical Exam Vitals/I&O's: Vital Signs Temp Pulse Resp BP Pulse Ox 100 F H 88 28 H 152/76 H 98 07/13/20 13:45 07/13/20 15:14 07/13/20 15:14 07/13/20 15:14 07/13/20 15:14 Oxygen Flow Rate (L/min) 6 Oxygen Delivery Method Nasal Cannula Weight: 180 lb 15.992 oz Body Mass Index (BMI) 23.8 General: Alert, Oriented x3, Cooperative, - - Mildly short of breath. HEENT: Atraumatic, PERRLA, EOMI, Normocephalic Oral: Moist Mucosa, No Gingival or Mucosal Lesions/ Ulcerations Neck: Supple, No JVD, Negative Carotid Bruits, Trachea Midline, Thyroid Normal Size and Texture Lungs: No wheeze, Diminished, Rales, Rhonchi, - - Decreased breath sounds bilaterally, bilateral crackles. Cardiovascular: Regular rate, Regular Rhythm, Normal S1, Normal S2, PMI Normal Abdomen: Bowel Sounds Present, Soft, Non Tender, Non-Distended, No Hepato- splenomegaly Extremities: No clubbing, No cyanosis, No edema Skin: No rashes, No breakdown Lymphatic: No Cervical, Supraclavicular, or Inguinal Adenopathy Neurological: Cranial nerves II-XII grossly intact, Motor Exam 5/5 strength throughout Psych/Mental Status: Normal Affect, Appropriate, Alert and oriented to time, place, person, mood and affect Laboratory Results 07/13/20 13:55: WBC 11.2 H, RBC 4.55 L, Hgb 14.3, Hct 43.8, MCV 96.3 H, MCH 31.4, MCHC 32.6, RDW Std Deviation 45.0 H, RDW Coeff of Araseli 12.7, Plt Count 295, MPV 9.4, Immature Gran % (Auto) 0.500, Neut % (Auto) 82.3 H, Lymph % (Auto) 4.7 L, [place] % (Auto) 10.7 H, Eos % (Auto) 1.2, Baso % (Auto) 0.6, Absolute Neuts (auto) 9.2 H, Absolute Lymphs (auto) 0.52 L, Nucleated RBC % 0 07/13/20 13:55: Sodium 131 L, Potassium 4.0, Chloride 95 L, Carbon Dioxide 31.0, Anion Gap 5, BUN 10, Creatinine 1.26, Estim Creat Clear Calc 56.37, Est GFR (MDRD) Af Amer 72, Est GFR (MDRD) Non-Af 59 L, BUN/Creatinine Ratio 7.9 L, Glucose 84, Calcium 8.9, Total Bilirubin 0.40, AST 23, ALT 19, Alkaline Phosphatase 48, Total Protein 7.8, Albumin 3.4, Globulin 4.4 H, Albumin/Globulin Ratio 0.8 L 07/13/20 13:55: Lactic Acid 1.2 07/13/20 14:05: COVID-19 (RAINER) Pending Clinical Impression(s) from Imaging Studies Chest X-Ray 07/13/20 15:08 IMPRESSION: Since prior study, there has been a progression of increased interstitial markings with areas of confluence at the lung bases worse on the left side. This may represent progressive pulmonary scarring versus superimposed infiltrate. Electronically Signed: Michael Scherer, at 15:31 EDT , Service support , Current Medications Sodium Chloride () 1,000 mls @ 125 mls/hr IV .Q8H CHAD Last Admin: 07/13/20 14:20 Dose: 125 mls/hr Documented by: Azithromycin 500 mg/ Dextrose 255 mls @ 250 mls/hr IV X1 ONE Stop: 07/13/20 16:52 Ceftriaxone Sodium (Rocephin) 1 gm in 50 mls @ 100 mls/hr IV X1 ONE Stop: 07/13/20 16:20 Assessment/Plan This is a 75 years old male patient presented to the emergency room because of worsening shortness of breath, subjective fever and he was found to have increasing bilateral lower lobe infiltrate with areas of confluence and he is being admitted for bilateral community-acquired pneumonia with sepsis and acute exacerbation of pulmonary fibrosis. #1 Acute bilateral community-acquired pneumonia/sepsis/exacerbation of pulmonary fibrosis: Chest x-ray reviewed. Patient did have a spike of low-grade fever, was tachypneic and tachycardic, has mild leukocytosis. Lactic acid was normal. COVID-19 PCR was negative. Plan: Admit to PCU, cardiac monitoring, sputum culture, blood culture, start IV Zosyn, IV Solu-Medrol, bronchodilators, incentive spirometer, repeat CBC and BMP tomorrow morning, PT OT evaluation and treatment. #2 chronic pulmonary fibrosis/chronic respiratory failure: On home oxygen of up to 10 L, usually at 6 L. Currently, patient is on 6 L. Continue prednisone 5 mg p.o. daily, continue esbriet, oxygen by nasal cannula to keep O2 saturation around 92%. #3 CAD status post stents: EKG was unremarkable, patient denied chest pain. Continue aspirin, statins. #4 hypertension: Blood pressure stable, continue Norvasc. #5 hypothyroidism: Stable, continue levothyroxine. #6 hyperlipidemia: Continue statins. #7 DVT prophylaxis: Subcu Lovenox. This note was generated with [employer] dictation software. It may contain incorrect words, spelling, and punctuation that were not noted in checking the note before signing. Inpatient E&M: 08411 Init Hosp L3
[2020-07-13] MEDS: Ceftriaxone 1 GM/50 ML BAG IV (16:27)
[2020-07-13] MEDS: MethylPREDNISolone 125 MG/2 ML Vial IV (17:56)
--- NOTE | 2020-07-13 19:56 | NURSING ---
Pt brother (Adi White) [phone] Pt brother's (Carlota) [phone]
--- NOTE | 2020-07-13 21:38 | CPS ---
PATIENT REFUSED TREATMENT.
[2020-07-13] MEDS: amLODIPine 5 MG Tablet PO (22:34)
[2020-07-13] MEDS: Aspirin E.C. 81 MG Tablet PO (22:34)
[2020-07-13] MEDS: Pravastatin 20 MG Tablet PO (22:35)
[2020-07-13] MEDS: 0.9% Saline Lock 10 ML Syringe IV (22:36)
[2020-07-14] VITALS (15 sets, daily range): BP systolic 138–153; BP diastolic 67–79; PULSE 70–94; RESP 18–24; TEMP 36.4–36.8; O2SAT 93–100
--- NOTE | 2020-07-14 01:40 | CPS ---
PATIENT REFUSED DUONEB TREATMENT AT 0140.
[2020-07-14 06:45] LABS: Absolute Lymphocyte Count 0.39 X10^3/uL (0.83-4.51); Absolute Neutrophil Count 8.4 X10^3/uL (2.0-7.7); Basophil# 0.03 X10^3/uL; Basophil% 0.3 % (0-1); Hematocrit 39.5 % (40-54); Hemoglobin 12.8 g/dL (13.0-16.5); Lymphocyte # 0.39 X10^3/ul (4.0); Lymphocyte % 4.3 % (19-41); Mean Corp Hgb Conc 32.4 g/dL (32-36); Mean Corpuscular Hgb 31.3 pg (27.0-32.0); Mean Corpuscular Volume 96.6 fL (80-94); Mean Platelet Vol. 9.6 fl (6.2-12.0); Monocyte# 0.14 X10^3/uL; Monocyte% 1.6 % (0-10); NRBC Flagged by Analyzer 0 % (0-5); Neutrophil # 8.36 X10^3/uL (2.7-7.7); Neutrophil % 93.1 % (47-70); POSITIVE DIFFERENTIAL YES; Platelet Count 260 K/mm3 (150-450); RBC Distribution Width CV 12.6 % (11.6-14.6); RBC Distribution Width SD 45.2 fl (35.1-43.9); Red Blood Count 4.09 M/mm3 (4.6-6.2)
[2020-07-14] MEDS: 0.9% Saline Lock 10 ML Syringe IV ×2 (06:45→21:55)
[2020-07-14] MEDS: Levothyroxine 50 MCG Tablet PO (06:45)
[2020-07-14 06:47] LABS: Differential Indicated SCAN CRITERIA MET
[2020-07-14 07:07] LABS: Differential Comment SCANNED
[2020-07-14 07:09] LABS: Anion Gap 6 (5-15); BUN 15 mg/dL (7-18); BUN/Creat Ratio 13.6 RATIO (10-20); Chloride 99 mmol/L (98-107); EST Glomerular Filtration Rate 69 mL/min (>60); Est Glom Filt Rate - Afr Amer 84 mL/min (>60); Estimated Creatinine Clearance 64.57 ml/min; Glucose 133 mg/dL (74-106); Potassium 4.1 mmol/L (3.5-5.1); Sodium Level 132 mmol/L (136-145)
[2020-07-14] MEDS: Ipratropium/Albuterol Sulfate 3 ML AMPUL.NEB INHALATION ×3 (07:40→19:22)
[2020-07-14] MEDS: Enoxaparin 40 MG/0.4 ML Syringe SC (08:08)
--- NOTE | 2020-07-14 10:46 | ECHOD_ITS ---
Reason For Study: MURMUR Procedure This was a 2D Doppler, Color Flow transthoracic echocardiogram. Exam performed portable in patient room. Left Ventricle Normal LV size. The estimated ejection fraction is 60 %. No evidence for diastolic dysfunction. No regional wall motion abnormalities noted. Right Ventricle Normal RV size. Normal systolic function. Atria Normal left atrium. Normal right atrium. No doppler evidence for ASD. Mitral Valve There is no mitral valve stenosis. No mitral valve insufficiency. Tricuspid Valve There is no tricuspid stenosis. Pulmonary artery systolic pressure is 50 mmHg. Trivial tricuspid valve insufficiency. Aortic Valve Moderate diffuse aortic valve thickening. Mild aortic stenosis. No aortic valve insufficiency. Pulmonic Valve There is no pulmonic valvular stenosis. No pulmonic valve insufficiency. Great Vessels Normal aortic root. Pericardium/Pleural No pericardial effusion. MMode/2D Measurements & Calculations LVIDd: 4.1 cm IVSd: 1.1 cm LVOT diam: 2.0 cm LVIDs: 2.8 cm LVPWd: 1.0 cm LVOT area: 3.3 cm2 RVDd: 3.6 cm FS: 32.5 % Ao root diam: 3.3 cm LAV(MOD-bp): 39.7 ml LVAd ap4: 28.8 cm2 LAV(MOD-bp) Indexed: 21.6 ml/m2 EDV(MOD-sp4): 92.7 ml LAV(MOD-sp2): 39.8 ml EDV(sp4-el): 94.3 ml LAV(MOD-sp4): 38.7 ml LVAs ap4: 16.2 cm2 ESV(MOD-sp4): 36.7 ml ESV(sp4-el): 35.1 ml EF(MOD-sp4): 60.4 % EF(sp4-el): 62.8 % SV(MOD-sp4): 56.0 ml SV(sp4-el): 59.2 ml LA A4 area: 15.6 cm2 LA dimension(2D): 3.6 cm RA A4 area: 11.8 cm2 Time Measurements MV dec time: 0.24 sec Doppler Measurements & Calculations MV E max surinder: 93.3 cm/sec Lat Peak E' Surinder: 10.2 cm/sec Med Peak E' Surinder: 7.1 cm/sec MV A max surinder: 114.4 cm/sec E/E' lat: 9.1 E/E' med: 13.1 MV E/A: 0.82 Ao V2 max: 252.7 cm/sec LV V1 max: 91.7 cm/sec SV(LVOT): 73.3 ml Ao max P.5 mmHg LV V1 max P.4 mmHg Ao V2 mean: 189.8 cm/sec LV V1 mean P.8 mmHg Ao mean P.5 mmHg LV V1 mean: 62.4 cm/sec Ao V2 VTI: 52.5 cm LV V1 VTI: 22.3 cm ALEXSANDRA(I,D): 1.4 cm2 ALEXSANDRA(V,D): 1.2 cm2 PA V2 max: 154.0 cm/sec TR max surinder: 338.4 cm/sec TR max P.8 mmHg Interpretation Summary The estimated ejection fraction is 60 %. No evidence for diastolic dysfunction. Pulmonary artery systolic pressure is 50 mmHg. Moderate diffuse aortic valve thickening. Mild aortic stenosis. Ordering Physician: Ike Garcias Referring Physician: RODOLFO MAI Performed By: Daxa Rose RDCS
--- NOTE | 2020-07-14 13:05 | CASEMGMT ---
RN CM Face to Face with patient for initial transition planning/care coordination assessment. RN CM introduced self and role at [facility]. Patient sitting in chair, alert and oriented, brother at bedside. Patient willing to participate in assessment and is able to answer all questions appropriately. Care providers, pharmacy, and demographics verified. Patient wishes to discharge home, but is willing to going to SNF or having HHC if recommended. Patient states he has no further needs or concerns at this time. CM to follow for discharge planning needs that may arise. PCP: Lesley Specialists: Ranjit, fire alarm installer, [facility]; Catarino, oncologist; Lamont, crop roller, [facility] main Preferred Pharmacy: [facility] Insurance: [id number] Prescription Benefit: yes Living Will/HPOA: yes, brother Adi White LNOK: Brother Living Arrangements: Patient lives alone in a townhouse with 1 step to enter. Patient states he is normally independent at home. Transportation: self/brother DME/HHC: Patient states he has oxygen at home through [facility] with portability for 8lpm. Patient denies further DME. No previous HHC. CM to monitor how patient progresses with therapy for discharge recommendation. Will also monitor oxygen requirements at discharge. Disposition Plan: SNF vs HHC pending progress with therapy and course of treatment. Martita JONES, RN, CM
--- NOTE | 2020-07-14 14:56 | PCM.PN.HOSP ---
<Ike Garcias - Last Filed: 07/14/20 14:56> Reason for Visit: SOB Subjective: Ongoing SOB, cough non productive. No fever/chills. No nausea/vomiting/diarrhea. He feels that his is improved but not yet back to his baseline. Vitals/I&O's: Vital Signs Temp Pulse Resp BP Pulse Ox 98.2 F 91 18 151/71 H 93 07/14/20 13:55 07/14/20 13:56 07/14/20 13:55 07/14/20 13:55 07/14/20 13:55 Oxygen Flow Rate (L/min) 4 Oxygen Delivery Method Nasal Cannula Weight: 177 lb 15.984 oz Body Mass Index (BMI) 23.5 Intake and Output for Last 24 Hours 07/12/20 07/13/20 07/14/20 23:59 23:59 23:59 Intake Total 691.67 / 691.67 120 / 120 Output Total 1425 / 1425 400 / 400 Balance -733.33 / -733.33 -280 / -280 General: Alert, Oriented x3, Cooperative HEENT: Atraumatic, PERRLA, EOMI, Normocephalic Neck: Supple, No JVD, Negative Carotid Bruits Lungs: Diminished, Rales Cardiovascular: Regular rate, Murmur - 3/6 systolic murmur best at LSB 2nd ICS Abdomen: Bowel Sounds Present, Soft, Non Tender Extremities: No edema, Capillary Refill Less than 3 Seconds Skin: No rashes, No breakdown Musculoskeletal: No Tenderness to Palpation of Joints or Extremities Neurological: Cranial nerves II-XII grossly intact Psych/Mental Status: Normal Affect, Appropriate, Alert and oriented to time, place, person, mood and affect Microbiology Past 72 Hours 07/13/20 14:05 Mucosa - Nasopharyngeal Respiratory Panel (PCR) - Final Laboratory Results 07/13/20 14:05: COVID-19 (RAINER) Not Detected 07/14/20 06:18: WBC 9.0, RBC 4.09 L, Hgb 12.8 L, Hct 39.5 L, MCV 96.6 H, MCH 31.3, MCHC 32.4, RDW Std Deviation 45.2 H, RDW Coeff of Araseli 12.6, Plt Count 260, MPV 9.6, Immature Gran % (Auto) 0.700, Neut % (Auto) 93.1 H, Lymph % (Auto) 4.3 L, [place] % (Auto) 1.6, Eos % (Auto) 0.0, Baso % (Auto) 0.3, Absolute Neuts (auto) 8.4 H, Absolute Lymphs (auto) 0.39 L, Nucleated RBC % 0, Differential Comment SCANNED 07/14/20 06:18: Sodium 132 L, Potassium 4.1, Chloride 99, Carbon Dioxide 27.0, Anion Gap 6, BUN 15, Creatinine 1.10, Estim Creat Clear Calc 64.57, Est GFR (MDRD) Af Amer 84, Est GFR (MDRD) Non-Af 69, BUN/Creatinine Ratio 13.6, Glucose 133 H, Calcium 8.0 L Current Medications Acetaminophen (Acetaminophen 325 Mg Tablet) 650 mg PO Q6H PRN PRN PRN Reason: Pain Score 1-10/Temp > 100.7 F Albuterol Sulfate (Albuterol 2.5 Mg/3 Ml Vial.Neb.) 2.5 mg INHALATION Q2H PRN PRN PRN Reason: SOB/Wheezing Albuterol/Ipratropium (Ipratropium/Albuterol Sulfate 3 Ml Ampul.Neb) 3 ml INHALATION Q6H.RT [facility] Last Admin: 07/14/20 12:39 Dose: 3 ml Documented by: Amlodipine Besylate (Amlodipine 5 Mg Tablet) 5 mg PO QHS [facility] Last Admin: 07/13/20 22:34 Dose: 5 mg Documented by: Aspirin (Aspirin E.C. 81 Mg Tablet) 81 mg PO QHS [facility] Last Admin: 07/13/20 22:34 Dose: 81 mg Documented by: Enoxaparin Sodium (Enoxaparin 40 Mg/0.4 Ml Syringe) 40 mg SC DAILY [facility] Last Admin: 07/14/20 08:08 Dose: 40 mg Documented by: Piperacillin Sod/Tazobactam (Sod 3.375 gm/ Sodium Chloride) 50 mls @ 12.5 mls/hr IV Q8 [facility] Last Admin: 07/14/20 13:06 Dose: 12.5 mls/hr Documented by: Levothyroxine Sodium (Levothyroxine 50 Mcg Tablet) 50 mcg PO DAILY@0600 [facility] Last Admin: 07/14/20 06:45 Dose: 50 mcg Documented by: Methylprednisolone (Methylprednisolone 40 Mg/Ml Vial) 40 mg IV Q8 [facility]AD Last Admin: 07/14/20 13:06 Dose: 40 mg Documented by: Ondansetron HCl (Ondansetron 4 Mg/2 Ml Vial) 4 mg IV Q8H PRN PRN PRN Reason: NAUSEA/VOMITING Pravastatin Sodium (Pravastatin 20 Mg Tablet) 20 mg PO QHS [facility]AD Last Admin: 07/13/20 22:35 Dose: 20 mg Documented by: Senna/Docusate Sodium (Senna/Docusate Sodium 1 Tablet) 2 tablet PO BID PRN PRN PRN Reason: Constipation Sodium Chloride (0.9% Saline Lock 10 Ml Syringe) 10 - 40 ml IV UD PRN PRN Reason: SALINE FLUSH Last Admin: 07/14/20 06:45 Dose: 20 ml Documented by: Zolpidem Tartrate (Zolpidem Tartrate 5 Mg Tablet) 5 mg PO QHS PRN PRN PRN Reason: INSOMNIA STROKE Vital Signs/Narrative: Vital Signs Temp Pulse Resp BP Pulse Ox 07/14/20 13:56 91 07/14/20 13:55 98.2 F 94 18 151/71 H 93 07/14/20 12:39 82 20 H Medical Necessity - Tobacco Use Smoking Status: Never smoker Tobacco Use: Secondhand Assessment/Plan 1. Acute sepsis 2/2 CAP complicated by chronic hypoxic respiratory failure 2/2 pulmonary fibrosis - stable at baseline o2 (6-10lpm via NC) Pt of [facility] pulmonology. Perfenidone held. Continue steroids, zosyn, aerosols, incentive spirometer, pep therapy. Tmax 100. Leukocytosis resolved. Obtain 2D echo. 2. Hx CAD - prior stents. continue asa/statin. 3. FYM-Pmffjvw-fxupirqmgxixx elevated-increase to 10 mg daily. 4. HLD - on statin 5. Hypothyroidism - continue synthroid DVT ppx: lovenox DC planning: walking pulse ox in AM. This patient was seen by Ike Garcias PA-C under the supervision of Doctor Alphonso. <Dora Werner - Last Filed: 07/14/20 17:29> Subjective: Has ongoing SOB and cough although cough is better. C/O MEJIA and R ear pressure. MEJIA is frontal and behind eyes. O2 is at 4 L now and pt appears comfortable. Had URI type sx about 2 weeks now. Was dx with IPF about 6 yrs ago. Vitals/I&O's: Vital Signs Temp Pulse Resp BP Pulse Ox 98.2 F 79 18 141/79 H 97 07/14/20 15:55 07/14/20 15:55 07/14/20 15:55 07/14/20 15:55 07/14/20 15:55 Oxygen Flow Rate (L/min) 4 Oxygen Delivery Method Nasal Cannula Weight: 80.739 kg Body Mass Index (BMI) 23.5 Intake and Output for Last 24 Hours 07/12/20 07/13/20 07/14/20 23:59 23:59 23:59 Intake Total 691.67 / 691.67 120 / 120 Output Total 1425 / 1425 900 / 900 Balance -733.33 / -733.33 -780 / -780 General: Alert, Oriented x3, Cooperative, No apparent distress, Well developed, Well nourished, - - older WM sitting up in chair, appears comfortable, brother at bedside HEENT: Atraumatic, Normocephalic Oral: Moist Mucosa, No Gingival or Mucosal Lesions/ Ulcerations Neck: Supple, Trachea Midline Lungs: No rhonchi, No wheeze, Diminished, Rales - slight at bases B Cardiovascular: Regular rate, Regular Rhythm, Normal S1, Normal S2, No Ectopic Activity, Murmur, No rub noted, No Gallop Abdomen: Bowel Sounds Present, Soft, Non Tender, Non-Distended, No Hepato-splenomegaly, No hernias noted Extremities: No clubbing, No cyanosis, No edema, Capillary Refill Less than 3 Seconds, Peripheral Pulses Normal Skin: No rashes Neurological: Cranial nerves II-XII grossly intact, Neuro grossly intact Psych/Mental Status: Normal Affect, Appropriate, - - very pleasant, Alert and oriented to time, place, person, mood and affect Microbiology Past 72 Hours 07/13/20 14:05 Mucosa - Nasopharyngeal Respiratory Panel (PCR) - Final Laboratory Results 07/14/20 06:18: WBC 9.0, RBC 4.09 L, Hgb 12.8 L, Hct 39.5 L, MCV 96.6 H, MCH 31.3, MCHC 32.4, RDW Std Deviation 45.2 H, RDW Coeff of Araseli 12.6, Plt Count 260, MPV 9.6, Immature Gran % (Auto) 0.700, Neut % (Auto) 93.1 H, Lymph % (Auto) 4.3 L, [place] % (Auto) 1.6, Eos % (Auto) 0.0, Baso % (Auto) 0.3, Absolute Neuts (auto) 8.4 H, Absolute Lymphs (auto) 0.39 L, Nucleated RBC % 0, Differential Comment SCANNED 07/14/20 06:18: Sodium 132 L, Potassium 4.1, Chloride 99, Carbon Dioxide 27.0, Anion Gap 6, BUN 15, Creatinine 1.10, Estim Creat Clear Calc 64.57, Est GFR (MDRD) Af Amer 84, Est GFR (MDRD) Non-Af 69, BUN/Creatinine Ratio 13.6, Glucose 133 H, Calcium 8.0 L Current Medications Acetaminophen (Acetaminophen 325 Mg Tablet) 650 mg PO Q6H PRN PRN PRN Reason: HEADACHE Last Admin: 07/14/20 17:15 Dose: 650 mg Documented by: Albuterol Sulfate (Albuterol 2.5 Mg/3 Ml Vial.Neb.) 2.5 mg INHALATION Q2H PRN PRN PRN Reason: SOB/Wheezing Albuterol/Ipratropium (Ipratropium/Albuterol Sulfate 3 Ml Ampul.Neb) 3 ml INHALATION Q6H.RT [facility] Last Admin: 07/14/20 12:39 Dose: 3 ml Documented by: Amlodipine Besylate (Amlodipine 10 Mg Tablet) 10 mg PO QHS CHAD Aspirin (Aspirin E.C. 81 Mg Tablet) 81 mg PO QHS [facility] Last Admin: 07/13/20 22:34 Dose: 81 mg Documented by: Enoxaparin Sodium (Enoxaparin 40 Mg/0.4 Ml Syringe) 40 mg SC DAILY [facility] Last Admin: 07/14/20 08:08 Dose: 40 mg Documented by: Fluticasone Propionate (Fluticasone 0.05% 1 [place] Nasal.Sry) 2 spray NASAL DAILY [facility] Piperacillin Sod/Tazobactam (Sod 3.375 gm/ Sodium Chloride) 50 mls @ 12.5 mls/hr IV Q8 [facility] Last Admin: 07/14/20 13:06 Dose: 12.5 mls/hr Documented by: Levothyroxine Sodium (Levothyroxine 50 Mcg Tablet) 50 mcg PO DAILY@0600 [facility] Last Admin: 07/14/20 06:45 Dose: 50 mcg Documented by: Methylprednisolone (Methylprednisolone 40 Mg/Ml Vial) 40 mg IV Q8 [facility] Last Admin: 07/14/20 13:06 Dose: 40 mg Documented by: Ondansetron HCl (Ondansetron 4 Mg/2 Ml Vial) 4 mg IV Q8H PRN PRN PRN Reason: NAUSEA/VOMITING Pravastatin Sodium (Pravastatin 20 Mg Tablet) 20 mg PO QHS [facility] Last Admin: 07/13/20 22:35 Dose: 20 mg Documented by: Senna/Docusate Sodium (Senna/Docusate Sodium 1 Tablet) 2 tablet PO BID PRN PRN PRN Reason: Constipation Sodium Chloride (0.9% Saline Lock 10 Ml Syringe) 10 - 40 ml IV UD PRN PRN Reason: SALINE FLUSH Last Admin: 07/14/20 06:45 Dose: 20 ml Documented by: Zolpidem Tartrate (Zolpidem Tartrate 5 Mg Tablet) 5 mg PO QHS PRN PRN PRN Reason: INSOMNIA STROKE Vital Signs/Narrative: Vital Signs Temp Pulse Resp BP Pulse Ox 07/14/20 15:55 98.2 F 79 18 141/79 H 97 07/14/20 13:56 91 07/14/20 13:55 98.2 F 94 18 151/71 H 93 Assessment/Plan I agree with the above and the following represents my independent history and physical exam ASSESSMENT Acute on Chronic Respiratory Failure Acute Sepsis 2/2 ? PNA URI/Sinusitis MEJIA IPF Hyponatremia-chronic HTN Hypothyroidism HPL PAH Mild CAD s/p stent PLAN -is dependent on O2 at 4-8 L at home -follows for IPF at [facility] -continue ABX -continue steroids -await cx -continue home meds -COVID neg -ECHO shows PAH with RVSP of 50 mmHg -start nasal spray for congestion -start APAP for MEJIA -will likely need rehab at d/c Inpatient E&M: [id number] Subs Hosp L2
[2020-07-14] MEDS: Acetaminophen 325 MG Tablet 650 MG PO (17:15)
[2020-07-14] MEDS: Aspirin E.C. 81 MG Tablet PO (21:54)
[2020-07-14] MEDS: amLODIPine 10 MG Tablet PO (21:54)
[2020-07-14] MEDS: Pravastatin 20 MG Tablet PO (21:55)
[2020-07-15] VITALS (12 sets, daily range): BP systolic 126–158; BP diastolic 67–74; PULSE 70–115; RESP 16–28; TEMP 36.9–37.7; O2SAT 90–98
[2020-07-15] MEDS: Acetaminophen 325 MG Tablet 650 MG PO ×2 (00:29→21:55)
[2020-07-15] MEDS: Tamsulosin HCl 0.4 MG Capsule PO ×2 (00:29→16:59)
--- NOTE | 2020-07-15 00:45 | CPS ---
Pt Asleep at this time. Aerosol tx held.
[2020-07-15] MEDS: Levothyroxine 50 MCG Tablet PO (05:41)
[2020-07-15 06:37] LABS: Absolute Lymphocyte Count 0.57 X10^3/uL (0.83-4.51); Absolute Neutrophil Count 14.4 X10^3/uL (2.0-7.7); Basophil# 0.03 X10^3/uL; Basophil% 0.2 % (0-1); Hematocrit 37.3 % (40-54); Hemoglobin 12.5 g/dL (13.0-16.5); Lymphocyte # 0.57 X10^3/ul (4.0); Lymphocyte % 3.6 % (19-41); Mean Corp Hgb Conc 33.5 g/dL (32-36); Mean Corpuscular Hgb 31.5 pg (27.0-32.0); Mean Platelet Vol. 9.4 fl (6.2-12.0); Monocyte# 0.54 X10^3/uL; Monocyte% 3.5 % (0-10); NRBC Flagged by Analyzer 0 % (0-5); Neutrophil # 14.41 X10^3/uL (2.7-7.7); Neutrophil % 92.1 % (47-70); POSITIVE DIFFERENTIAL YES; Platelet Count 269 K/mm3 (150-450); RBC Distribution Width CV 12.5 % (11.6-14.6); RBC Distribution Width SD 43.4 fl (35.1-43.9); Red Blood Count 3.97 M/mm3 (4.6-6.2); White Blood Count 15.6 K/mm3 (4.4-11.0)
[2020-07-15 06:44] LABS: Differential Indicated SCAN CRITERIA MET
[2020-07-15 06:54] LABS: Anion Gap 4 (5-15); BUN 22 mg/dL (7-18); BUN/Creat Ratio 17.9 RATIO (10-20); Calcium,Total 8.3 mg/dL (8.5-10.1); Chloride 100 mmol/L (98-107); Creatinine, Serum 1.23 mg/dL (0.70-1.30); EST Glomerular Filtration Rate 61 mL/min (>60); Est Glom Filt Rate - Afr Amer 74 mL/min (>60); Estimated Creatinine Clearance 57.74 ml/min; Glucose 134 mg/dL (74-106); Sodium Level 133 mmol/L (136-145)
[2020-07-15 06:55] LABS: Differential Comment SCANNED
[2020-07-15] MEDS: Enoxaparin 40 MG/0.4 ML Syringe SC (09:00)
[2020-07-15] MEDS: Fluticasone 0.05% 1 SPRAY NASAL.SRY 2 SPRAY NASAL (09:00)
--- NOTE | 2020-07-15 09:56 | CASEMGMT ---
Per physician patient is concerned he may need to go for rehab. SW met with patient, introduced self and role at [facility]. SW asked about d/c plan and he confirmed he is thinking about going somewhere for rehab. SW gave him a list of facilities and explained how the process works. He asked about [facility] COVID situation. SW told him SW will call and ask and let him know. He was going to look over the list and SW will check back with him. Christelle ADRIAN MSW
--- NOTE | 2020-07-15 11:29 | PCM.EXTCARCO ---
- Diet 07/13/20 18:27 Diet: Cardiac - Heart Healthy Food consistency:: Regular Liquid Consistency:: Regular/Thin Is pt able to select menu?: Yes - Routine Orders/Code Status Suppository Type: Dulcolax 10mg Suppository Frequency: Daily PRN O2 Frequency: Continuous Keep PO Greater than or Equal to (%): 89 Routine Lab Work: CBC - 5 days, BMP - 5 days Code Status: Full Code - Wound(s) Right Cornelius Wound Type: Abrasion Chest Wound Type: Abrasion - Therapies Physical Therapy: Eval and Treat Occupational Therapy: Eval and Treat - Problem/Diagnosis (1) Pneumonia Status: Acute (2) Sepsis Status: Acute (3) Chronic respiratory failure Status: Chronic (4) Coronary artery disease Status: Chronic Comment: Status post stents. (5) Hyperlipidemia Status: Chronic (6) Hypertension Status: Chronic (7) Pulmonary fibrosis Status: Chronic - Allergies/Procedures Done in Hospital Allergies/Adverse Reactions: Allergies No Known Allergies Allergy (Verified 08/25/18 09:36) Procedures: 2-D Echocardiogram - Type of Care/Length of Stay Estimated LOS: Convalescent Care Less Than 30 days Type of Care Needed: Skilled Rehab Potential: Fair Prognosis: Fair - Additional Orders/Day of Discharge Day of Discharge: 07/15/20 - Dietary and Speech Recommendations Dietitian Recommendations/Changes: Continue Cardiac diet. - Follow Up Care Primary Care Physician: Kevin Sutton MD [Primary Care Provider] - Please follow up with your Primary Care Physician in: 2 weeks Please Follow Up With: [facility] Pul[facility]ology When: 2 weeks
[2020-07-15] MEDS: Ipratropium/Albuterol Sulfate 3 ML AMPUL.NEB INHALATION ×2 (13:12→20:08)
--- NOTE | 2020-07-15 14:49 | PCM.DC.SUM ---
Discharge Date and Diagnosis - Problem List Patient Problems: Active and Suspected Problems Pneumonia (Acute) Sepsis (Acute) Date of Admission: 07/13/20 Date of Discharge: 07/15/20 - Primary Discharge Diagnosis Acute Problems: Active Problems Acute sepsis secondary to community-acquired pneumonia COPD exacerbation Pulmonary fibrosis with chronic hypoxic respiratory failure baseline of 5 to 10 L of oxygen per minute Pulmonary HTN Hypertension - Secondary Discharge Diagnosis Chronic Problems: Chronic Problems Hyperlipidemia (Chronic) Coronary artery disease (Chronic) Status post stents. Hypertension (Chronic) Pulmonary fibrosis (Chronic) Chronic respiratory failure (Chronic) Hospital Course and Treatment Imaging Results: RAD/Chest 1 View (Portable) IMPRESSION: Since prior study, there has been a progression of increased interstitial markings with areas of confluence at the lung bases worse on the left side. This may represent progressive pulmonary scarring versus superimposed infiltrate. 2D TTE: Interpretation Summary The estimated ejection fraction is 60 %. No evidence for diastolic dysfunction. Pulmonary artery systolic pressure is 50 mmHg. Moderate diffuse aortic valve thickening. Mild aortic stenosis. Operations: None Procedures: 2-D Echocardiogram Summary of Care Provided: The patient is a 75 year old M [] Patient Problems: Active and Suspected Problems Pneumonia (Acute) Sepsis (Acute) - Physical Exam Vitals/I&O's: Vital Signs Temp Pulse Resp BP Pulse Ox 98.8 F 106 H 28 H 126/67 H 98 07/15/20 12:00 07/15/20 13:11 07/15/20 13:11 07/15/20 12:00 07/15/20 12:00 Oxygen Flow Rate (L/min) 4 Oxygen Delivery Method Nasal Cannula Weight: 177 lb 15.984 oz Body Mass Index (BMI) 23.5 Intake and Output for Last 24 Hours 07/13/20 07/14/20 07/15/20 23:59 23:59 23:59 Intake Total 691.67 / 691.67 170 / 670 1590 / 1590 Output Total 1425 / 1425 1450 / 1450 750 / 750 Balance -733.33 / -733.33 -1280 / -780 840 / 840 Microbiology Past 72 Hours 07/13/20 13:45 Blood Culture (Wb) - Left Hand Blood Culture - Preliminary No growth in 48 hours. 07/13/20 13:55 Blood Culture (Wb) - Anticubital Right Blood Culture - Preliminary No growth in 48 hours. 07/13/20 14:05 Mucosa - Nasopharyngeal Respiratory Panel (PCR) - Final Laboratory Results 07/15/20 06:15: WBC 15.6 H, RBC 3.97 L, Hgb 12.5 L, Hct 37.3 L, MCV 94.0, MCH 31.5, MCHC 33.5, RDW Std Deviation 43.4, RDW Coeff of Araseli 12.5, Plt Count 269, MPV 9.4, Immature Gran % (Auto) 0.600, Neut % (Auto) 92.1 H, Lymph % (Auto) 3.6 L, [place] % (Auto) 3.5, Eos % (Auto) 0.0, Baso % (Auto) 0.2, Absolute Neuts (auto) 14.4 H, Absolute Lymphs (auto) 0.57 L, Nucleated RBC % 0, Differential Comment SCANNED 07/15/20 06:15: Sodium 133 L, Potassium 4.0, Chloride 100, Carbon Dioxide 29.0, Anion Gap 4 L, BUN 22 H, Creatinine 1.23, Estim Creat Clear Calc 57.74, Est GFR (MDRD) Af Amer 74, Est GFR (MDRD) Non-Af 61, BUN/Creatinine Ratio 17.9, Glucose 134 H, Calcium 8.3 L Current Medications Acetaminophen (Acetaminophen 325 Mg Tablet) 650 mg PO Q6H PRN PRN PRN Reason: HEADACHE Last Admin: 07/15/20 00:29 Dose: 650 mg Documented by: Albuterol Sulfate (Albuterol 2.5 Mg/3 Ml Vial.Neb.) 2.5 mg INHALATION Q2H PRN PRN PRN Reason: SOB/Wheezing Albuterol/Ipratropium (Ipratropium/Albuterol Sulfate 3 Ml Ampul.Neb) 3 ml INHALATION Q6H.RT [facility] Last Admin: 07/15/20 13:12 Dose: 3 ml Documented by: Amlodipine Besylate (Amlodipine 10 Mg Tablet) 10 mg PO QHS [facility] Last Admin: 07/14/20 21:54 Dose: 10 mg Documented by: Aspirin (Aspirin E.C. 81 Mg Tablet) 81 mg PO QHS [facility] Last Admin: 07/14/20 21:54 Dose: 81 mg Documented by: Enoxaparin Sodium (Enoxaparin 40 Mg/0.4 Ml Syringe) 40 mg SC DAILY [facility] Last Admin: 07/15/20 09:00 Dose: 40 mg Documented by: Fluticasone Propionate (Fluticasone 0.05% 1 [place] Nasal.Sry) 2 spray NASAL DAILY [facility] Last Admin: 07/15/20 09:00 Dose: 2 spray Documented by: Piperacillin Sod/Tazobactam (Sod 3.375 gm/ Sodium Chloride) 50 mls @ 12.5 mls/hr IV Q8 [facility] Last Infusion: 07/15/20 10:01 Dose: Infused Documented by: Levothyroxine Sodium (Levothyroxine 50 Mcg Tablet) 50 mcg PO DAILY@0600 [facility] Last Admin: 07/15/20 05:41 Dose: 50 mcg Documented by: Methylprednisolone (Methylprednisolone 40 Mg/Ml Vial) 40 mg IV Q8 [facility] Last Admin: 07/15/20 05:41 Dose: 40 mg Documented by: Ondansetron HCl (Ondansetron 4 Mg/2 Ml Vial) 4 mg IV Q8H PRN PRN PRN Reason: NAUSEA/VOMITING Pravastatin Sodium (Pravastatin 20 Mg Tablet) 20 mg PO QHS [facility] Last Admin: 07/14/20 21:55 Dose: 20 mg Documented by: Senna/Docusate Sodium (Senna/Docusate Sodium 1 Tablet) 2 tablet PO BID PRN PRN PRN Reason: Constipation Sodium Chloride (0.9% Saline Lock 10 Ml Syringe) 10 - 40 ml IV UD PRN PRN Reason: SALINE FLUSH Last Admin: 07/14/20 21:55 Dose: 10 ml Documented by: Tamsulosin HCl (Tamsulosin Hcl 0.4 Mg Capsule) 0.4 mg PO DAILY@1730 [facility] Last Admin: 07/15/20 00:29 Dose: 0.4 mg Documented by: Zolpidem Tartrate (Zolpidem Tartrate 5 Mg Tablet) 5 mg PO QHS PRN PRN PRN Reason: INSOMNIA Home Medications: Medications to take at Discharge Pirfenidone [Esbriet] 801 mg PO TID 07/03/16 Aspirin E.C. [Ecotrin] 81 mg PO QHS 08/25/18 Calcium Citrate/Vitamin D3 [Citracal-D3 200Mg-250 Unit Tab] 1 tab PO DAILY 08/25/18 Pravastatin Sodium [Pravachol] 20 mg PO QHS 08/25/18 Cholecalciferol (Vitamin D3) [Vitamin D3] 2,000 unit PO QHS 07/13/20 Levothyroxine Sodium 50 mcg PO DAILY 07/13/20 Prednisone 5 mg PO DAILY 07/13/20 Amlodipine [Norvasc] 10 mg PO QHS tab 07/15/20 Fluticasone 0.05% [Flonase Nasal [place]] 2 spray NASAL DAILY nasal.sry 07/15/20 Ipratropium/Albuterol Sulfate [Duoneb] 3 ml INHALATION Q6H.RT ampul.neb 07/15/20 Prednisone See Taper PO DAILY #30 tab 07/15/20 Senna/Docusate Sodium [Senokot-S] 2 tab PO BID PRN PRN tab 07/15/20 Tamsulosin HCl [Flomax] 0.4 mg PO DAILY@1730 cap 07/15/20 levoFLOXacin tablet [Levaquin tablet] 750 mg PO DAILY #5 tab 07/15/20 Following Prescriptions Were Given to Patient: levoFLOXacin tablet [Levaquin tablet] 750 mg PO DAILY #5 tab Prednisone See Taper PO DAILY #30 tab Primary Care Physician: Kevin Sutton MD [Primary Care Provider] - Please follow up with your Primary Care Physician in: 2 weeks Please Follow Up With: [facility] When: 2 weeks Medical Necessity - Tobacco Use Smoking Status: Never smoker Tobacco Use: Secondhand
--- NOTE | 2020-07-15 14:55 | PN_ITS ---
<Ike Garcias - Last Filed: 07/15/20 14:55> Patient Problems: Active and Suspected Problems Pneumonia (Acute) Sepsis (Acute) Reason for Visit: SOB Subjective: SOB improving, patient requireing 4lpm o2 at this point which is below baseline. No fever/chills. Ongoing productive cough. No CP. Mild LE edema. Vitals/I&O's: Vital Signs Temp Pulse Resp BP Pulse Ox 98.8 F 106 H 28 H 126/67 H 98 07/15/20 12:00 07/15/20 13:11 07/15/20 13:11 07/15/20 12:00 07/15/20 12:00 Oxygen Flow Rate (L/min) 4 Oxygen Delivery Method Nasal Cannula Weight: 177 lb 15.984 oz Body Mass Index (BMI) 23.5 Intake and Output for Last 24 Hours 07/13/20 07/14/20 07/15/20 23:59 23:59 23:59 Intake Total 691.67 / 691.67 170 / 670 1590 / 1590 Output Total 1425 / 1425 1450 / 1450 750 / 750 Balance -733.33 / -733.33 -1280 / -780 840 / 840 General: Alert, Oriented x3, Cooperative HEENT: Atraumatic, PERRLA, EOMI, Normocephalic Neck: Supple, No JVD, Negative Carotid Bruits Lungs: Clear to auscultation, Diminished Cardiovascular: Regular rate, No murmurs Abdomen: Bowel Sounds Present, Soft, Non Tender Extremities: No edema, Capillary Refill Less than 3 Seconds Skin: No rashes, No breakdown Musculoskeletal: No Tenderness to Palpation of Joints or Extremities Neurological: Cranial nerves II-XII grossly intact Psych/Mental Status: Normal Affect, Appropriate, Alert and oriented to time, place, person, mood and affect Microbiology Past 72 Hours 07/13/20 13:45 Blood Culture (Wb) - Left Hand Blood Culture - Preliminary No growth in 48 hours. 07/13/20 13:55 Blood Culture (Wb) - Anticubital Right Blood Culture - Preliminary No growth in 48 hours. 07/13/20 14:05 Mucosa - Nasopharyngeal Respiratory Panel (PCR) - Final Laboratory Results 07/15/20 06:15: WBC 15.6 H, RBC 3.97 L, Hgb 12.5 L, Hct 37.3 L, MCV 94.0, MCH 31.5, MCHC 33.5, RDW Std Deviation 43.4, RDW Coeff of Araseli 12.5, Plt Count 269, MPV 9.4, Immature Gran % (Auto) 0.600, Neut % (Auto) 92.1 H, Lymph % (Auto) 3.6 L, [place] % (Auto) 3.5, Eos % (Auto) 0.0, Baso % (Auto) 0.2, Absolute Neuts (auto) 14.4 H, Absolute Lymphs (auto) 0.57 L, Nucleated RBC % 0, Differential Comment SCANNED 07/15/20 06:15: Sodium 133 L, Potassium 4.0, Chloride 100, Carbon Dioxide 29.0, Anion Gap 4 L, BUN 22 H, Creatinine 1.23, Estim Creat Clear Calc 57.74, Est GFR (MDRD) Af Amer 74, Est GFR (MDRD) Non-Af 61, BUN/Creatinine Ratio 17.9, Glucose 134 H, Calcium 8.3 L Current Medications Acetaminophen (Acetaminophen 325 Mg Tablet) 650 mg PO Q6H PRN PRN PRN Reason: HEADACHE Last Admin: 07/15/20 00:29 Dose: 650 mg Documented by: Albuterol Sulfate (Albuterol 2.5 Mg/3 Ml Vial.Neb.) 2.5 mg INHALATION Q2H PRN PRN PRN Reason: SOB/Wheezing Albuterol/Ipratropium (Ipratropium/Albuterol Sulfate 3 Ml Ampul.Neb) 3 ml INHALATION Q6H.RT [facility] Last Admin: 07/15/20 13:12 Dose: 3 ml Documented by: Amlodipine Besylate (Amlodipine 10 Mg Tablet) 10 mg PO QHS [facility] Last Admin: 07/14/20 21:54 Dose: 10 mg Documented by: Aspirin (Aspirin E.C. 81 Mg Tablet) 81 mg PO QHS [facility] Last Admin: 07/14/20 21:54 Dose: 81 mg Documented by: Enoxaparin Sodium (Enoxaparin 40 Mg/0.4 Ml Syringe) 40 mg SC DAILY [facility] Last Admin: 07/15/20 09:00 Dose: 40 mg Documented by: Fluticasone Propionate (Fluticasone 0.05% 1 [place] Nasal.Sry) 2 spray NASAL DAILY [facility] Last Admin: 07/15/20 09:00 Dose: 2 spray Documented by: Piperacillin Sod/Tazobactam (Sod 3.375 gm/ Sodium Chloride) 50 mls @ 12.5 mls/hr IV Q8 [facility] Last Infusion: 07/15/20 10:01 Dose: Infused Documented by: Levothyroxine Sodium (Levothyroxine 50 Mcg Tablet) 50 mcg PO DAILY@0600 [facility] Last Admin: 07/15/20 05:41 Dose: 50 mcg Documented by: Methylprednisolone (Methylprednisolone 40 Mg/Ml Vial) 40 mg IV Q8 [facility] Last Admin: 07/15/20 05:41 Dose: 40 mg Documented by: Ondansetron HCl (Ondansetron 4 Mg/2 Ml Vial) 4 mg IV Q8H PRN PRN PRN Reason: NAUSEA/VOMITING Pravastatin Sodium (Pravastatin 20 Mg Tablet) 20 mg PO QHS [facility] Last Admin: 07/14/20 21:55 Dose: 20 mg Documented by: Senna/Docusate Sodium (Senna/Docusate Sodium 1 Tablet) 2 tablet PO BID PRN PRN PRN Reason: Constipation Sodium Chloride (0.9% Saline Lock 10 Ml Syringe) 10 - 40 ml IV UD PRN PRN Reason: SALINE FLUSH Last Admin: 07/14/20 21:55 Dose: 10 ml Documented by: Tamsulosin HCl (Tamsulosin Hcl 0.4 Mg Capsule) 0.4 mg PO DAILY@1730 [facility] Last Admin: 07/15/20 00:29 Dose: 0.4 mg Documented by: Zolpidem Tartrate (Zolpidem Tartrate 5 Mg Tablet) 5 mg PO QHS PRN PRN PRN Reason: INSOMNIA STROKE Vital Signs/Narrative: Vital Signs Temp Pulse Resp BP Pulse Ox 07/15/20 13:11 106 H 28 H 07/15/20 12:00 98.8 F 102 H 18 126/67 H 98 07/15/20 11:00 103 H Medical Necessity - Tobacco Use Smoking Status: Never smoker Tobacco Use: Secondhand Assessment/Plan All Active Problems Pneumonia (Acute) Sepsis (Acute) 1. Acute sepsis 2/2 CAP complicated by chronic hypoxic respiratory failure 2/2 pulmonary fibrosis - stable at 4lpm o2. uses 5-10 lpm o2 at baseline. Pt of [facility] pulmonology. Perfenidone held. Continue steroids, zosyn, aerosols, incentive spirometer, pep therapy. Fever resolved. Leukocytosis resolved. Echo with pulmo nary HTN and preserved EF. Plan for prednisone taper and levaquin course at [place]. 2. Hx CAD - prior stents. continue asa/statin. 3. LBI-Gmlacch-xpvprqoxwqiet elevated-increase to 10 mg daily. 4. HLD - on statin 5. Hypothyroidism - continue synthroid DVT ppx: lovenox DC planning: Acute Rehab on Saturday. This patient was seen by Ike Garcias PA-C under the supervision of Doctor Alphonso. <Dora Werner - Last Filed: 07/15/20 17:23> Subjective: Pt states 75% better overall. Still with SOB. Needs more rehab. MEJIA improved. Still with congestion. Vitals/I&O's: Vital Signs Temp Pulse Resp BP Pulse Ox 99.8 F H 109 H 18 158/74 H 94 07/15/20 15:45 07/15/20 15:45 07/15/20 15:45 07/15/20 15:45 07/15/20 15:45 Oxygen Flow Rate (L/min) 4 Oxygen Delivery Method Nasal Cannula Weight: 80.739 kg Body Mass Index (BMI) 23.5 Intake and Output for Last 24 Hours 07/13/20 07/14/20 07/15/20 23:59 23:59 23:59 Intake Total 691.67 / 691.67 170 / 670 1590 / 1590 Output Total 1425 / 1425 1450 / 1450 750 / 750 Balance -733.33 / -733.33 -1280 / -780 840 / 840 General: Alert, Oriented x3, Cooperative, No apparent distress, Well developed HEENT: Atraumatic, Normocephalic Oral: Moist Mucosa, - - no thrush Neck: Supple, Trachea Midline Lungs: Clear to auscultation, No rhonchi, No wheeze, No rales, Diminished Cardiovascular: Regular rate, Regular Rhythm, Normal S1, Normal S2, No murmurs, No Ectopic Activity, No rub noted, No Gallop Abdomen: Bowel Sounds Present, Soft, Non Tender, Non-Distended Extremities: No clubbing, No cyanosis, No edema, Capillary Refill Less than 3 Seconds, Peripheral Pulses Normal Neurological: Cranial nerves II-XII grossly intact, Neuro grossly intact Psych/Mental Status: Appropriate, Flat Affect Microbiology Past 72 Hours 07/13/20 13:45 Blood Culture (Wb) - Left Hand Blood Culture - Preliminary No growth in 48 hours. 07/13/20 13:55 Blood Culture (Wb) - Anticubital Right Blood Culture - Preliminary No growth in 48 hours. 07/13/20 14:05 Mucosa - Nasopharyngeal Respiratory Panel (PCR) - Final Laboratory Results 07/15/20 06:15: WBC 15.6 H, RBC 3.97 L, Hgb 12.5 L, Hct 37.3 L, MCV 94.0, MCH 31.5, MCHC 33.5, RDW Std Deviation 43.4, RDW Coeff of Araseli 12.5, Plt Count 269, MPV 9.4, Immature Gran % (Auto) 0.600, Neut % (Auto) 92.1 H, Lymph % (Auto) 3.6 L, [place] % (Auto) 3.5, Eos % (Auto) 0.0, Baso % (Auto) 0.2, Absolute Neuts (auto) 14.4 H, Absolute Lymphs (auto) 0.57 L, Nucleated RBC % 0, Differential Comment SCANNED 07/15/20 06:15: Sodium 133 L, Potassium 4.0, Chloride 100, Carbon Dioxide 29.0, Anion Gap 4 L, BUN 22 H, Creatinine 1.23, Estim Creat Clear Calc 57.74, Est GFR (MDRD) Af Amer 74, Est GFR (MDRD) Non-Af 61, BUN/Creatinine Ratio 17.9, Glucose 134 H, Calcium 8.3 L Current Medications Acetaminophen (Acetaminophen 325 Mg Tablet) 650 mg PO Q6H PRN PRN PRN Reason: HEADACHE Last Admin: 07/15/20 00:29 Dose: 650 mg Documented by: Albuterol Sulfate (Albuterol 2.5 Mg/3 Ml Vial.Neb.) 2.5 mg INHALATION Q2H PRN PRN PRN Reason: SOB/Wheezing Albuterol/Ipratropium (Ipratropium/Albuterol Sulfate 3 Ml Ampul.Neb) 3 ml INHALATION Q6H.RT [facility] Last Admin: 07/15/20 13:12 Dose: 3 ml Documented by: Amlodipine Besylate (Amlodipine 10 Mg Tablet) 10 mg PO QHS [facility] Last Admin: 10/15/20 21:54 Dose: 10 mg Documented by: Aspirin (Aspirin E.C. 81 Mg Tablet) 81 mg PO QHS [facility] Last Admin: 07/14/20 21:54 Dose: 81 mg Documented by: Enoxaparin Sodium (Enoxaparin 40 Mg/0.4 Ml Syringe) 40 mg SC DAILY [facility] Last Admin: 07/15/20 09:00 Dose: 40 mg Documented by: Fluticasone Propionate (Fluticasone 0.05% 1 [place] Nasal.Sry) 2 spray NASAL DAILY [facility] Last Admin: 07/15/20 09:00 Dose: 2 spray Documented by: Piperacillin Sod/Tazobactam (Sod 3.375 gm/ Sodium Chloride) 50 mls @ 12.5 mls/hr IV Q8 [facility] Last Admin: 07/15/20 16:56 Dose: 12.5 mls/hr Documented by: Levothyroxine Sodium (Levothyroxine 50 Mcg Tablet) 50 mcg PO DAILY@0600 [facility] Last Admin: 07/15/20 05:41 Dose: 50 mcg Documented by: Methylprednisolone (Methylprednisolone 40 Mg/Ml Vial) 40 mg IV Q8 [facility] Last Admin: 07/15/20 16:55 Dose: 40 mg Documented by: Ondansetron HCl (Ondansetron 4 Mg/2 Ml Vial) 4 mg IV Q8H PRN PRN PRN Reason: NAUSEA/VOMITING Pravastatin Sodium (Pravastatin 20 Mg Tablet) 20 mg PO QHS [facility] Last Admin: 07/14/20 21:55 Dose: 20 mg Documented by: Senna/Docusate Sodium (Senna/Docusate Sodium 1 Tablet) 2 tablet PO BID PRN PRN PRN Reason: Constipation Sodium Chloride (0.9% Saline Lock 10 Ml Syringe) 10 - 40 ml IV UD PRN PRN Reason: SALINE FLUSH Last Admin: 07/15/20 16:54 Dose: 20 ml Documented by: Tamsulosin HCl (Tamsulosin Hcl 0.4 Mg Capsule) 0.4 mg PO DAILY@1730 [facility] Last Admin: 07/15/20 16:59 Dose: 0.4 mg Documented by: Zolpidem Tartrate (Zolpidem Tartrate 5 Mg Tablet) 5 mg PO QHS PRN PRN PRN Reason: INSOMNIA STROKE Vital Signs/Narrative: Vital Signs Temp Pulse Resp BP Pulse Ox 07/15/20 15:45 99.8 F H 109 H 18 158/74 H 94 Assessment/Plan I agree with the above and the following represents my independent history and physical exam ASSESSMENT Acute on Chronic Respiratory Failure Acute Sepsis 2/ ? PNA URI/Sinusitis MEJIA IPF Hyponatremia-chronic HTN Hypothyroidism HPL PAH Mild CAD s/p stent PLAN -is dependent on O2 at 4-8 L at home -follows for IPF at [facility] -continue ABX--> switch to levaquin and complete 7 day course (12/04) -continue steroids wean to 60 mg per day po and completed slow taper -cx neg -continue home meds -COVID neg -ECHO shows PAH with RVSP of 50 mmHg -cont nasal spray for congestion -continue APAP for MEJIA--> better today -d/c to rehab on Saturday -Na stable -no lab in am -->check on day of d/c Inpatient E&M: 31611 Subs Hosp L2
--- NOTE | 2020-07-15 15:45 | CASEMGMT ---
ISA met with patient and his brother. SW answered their questions. Patient would like to go to TCU. ISA told him SW will make the referral and let him know. ISA spoke with Ximena on [facility] referral phone with referral. After review TCU cannot accept patient as he has a medication that is $9,000. ISA let patient and his brother know this information. They were going to discuss options and they asked ISA to give them some time. ISA received a call from Ximena and she said if patient is interested they could take him on the 4th floor Rehab Unit on Saturday. ISA met with patient and his brother and explained this option. They would like for patient to go to Inpatient Rehab. ISA explained he would not go until Saturday. They thanked ISA for the assistance. Plan: [facility] 4th floor Rehab Unit on Saturday. Christelle HUI
[2020-07-15] MEDS: 0.9% Saline Lock 10 ML Syringe IV (16:54)
[2020-07-15] MEDS: amLODIPine 10 MG Tablet PO (21:55)
[2020-07-15] MEDS: Aspirin E.C. 81 MG Tablet PO (21:55)
[2020-07-15] MEDS: Pravastatin 20 MG Tablet PO (21:55)
[2020-07-16] VITALS (12 sets, daily range): BP systolic 149–187; BP diastolic 77–93; PULSE 74–110; RESP 16–22; TEMP 36.6–38.3; O2SAT 92–99
[2020-07-16] MEDS: Ipratropium/Albuterol Sulfate 3 ML AMPUL.NEB INHALATION ×4 (02:56→19:44)
[2020-07-16] MEDS: Levothyroxine 50 MCG Tablet PO (06:24)
[2020-07-16] MEDS: predniSONE 20 MG Tablet 60 MG PO (08:02)
[2020-07-16 11:05] LABS: Bedside Glucose 127 mg/dL (70-110)
--- NOTE | 2020-07-16 11:25 | CT_ITS ---
STUDY: CT BRAIN WITHOUT CONTRAST REASON FOR EXAM: Male, 75 years old. UNRESPONSIVE, CONFUSION RADIATION DOSAGE (If Supplied By Facility): CTDIvol = ( ) mGy, DLP = ( ) mGycm TECHNIQUE: Transaxial CT imaging of the brain was performed without administration of intravenous contrast material. Individualized dose optimization techniques were used for this CT. COMPARISON: None. FINDINGS: There is cerebral atrophy with widening of the extra-axial spaces and ventricular dilatation. There are areas of decreased attenuation within the white matter tracts of the supratentorial brain, consistent with microvascular disease changes. There is no intracranial hemorrhage. There are no findings of an acute ischemic infarction. Normal soft tissue structures. Left mastoid opacification is noted. CT/Brain/Head without Contrast IMPRESSION: Chronic involutional changes of the brain. Electronically Signed: Pito Rincon MD at 13:05 EDT Tel , Service support ,
[2020-07-16 11:26] LABS: Allen Test Positive; Base Excess 4 mmol/L (-2 to +2); Bicarbonate 28.1 mmol/L (22-26); Blood Gas Specimen Type ART; O2 Delivery Device Cannula; PO2 76 mmHG (75-100); SITE R Radial; SO2 95 % (95-99); Total Carbon Dioxide 29 mmol/L; pCO2 42.4 mmHg (35-45); pH 7.43 (7.35-7.45)
[2020-07-16 12:01] LABS: Ammonia < 10.0 umol/L (11-32)
[2020-07-16] MEDS: Fluticasone 0.05% 1 SPRAY NASAL.SRY 2 SPRAY NASAL (12:02)
[2020-07-16 12:07] LABS: Lactic Acid 1.1 mmol/L (0.4-1.9)
[2020-07-16 12:08] LABS: ALB/GLOB Ratio 0.7 RATIO (0.9-2.4); AST(SGOT) 53 U/L (15-37); Alanine Aminotransfer ALT/SGPT 66 U/L (16-61); Albumin, Serum 2.9 g/dL (3.2-5.0); Alkaline Phosphatase 42 U/L (45-117); Anion Gap 5 (5-15); BUN 18 mg/dL (7-18); BUN/Creat Ratio 14.8 RATIO (10-20); Calcium,Total 8.1 mg/dL (8.5-10.1); Chloride 98 mmol/L (98-107); Creatinine, Serum 1.22 mg/dL (0.70-1.30); EST Glomerular Filtration Rate 61 mL/min (>60); Est Glom Filt Rate - Afr Amer 74 mL/min (>60); Estimated Creatinine Clearance 58.21 ml/min; Globulin 3.9 g/dL (2.2-4.2); Glucose 124 mg/dL (74-106); Potassium 3.7 mmol/L (3.5-5.1); Protein, Total 6.8 g/dL (6.4-8.2); Sodium Level 132 mmol/L (136-145)
[2020-07-16 12:13] LABS: Absolute Lymphocyte Count 0.39 X10^3/uL (0.83-4.51); Absolute Neutrophil Count 14.1 X10^3/uL (2.0-7.7); Basophil# 0.02 X10^3/uL; Basophil% 0.1 % (0-1); Hematocrit 38.8 % (40-54); Hemoglobin 12.8 g/dL (13.0-16.5); Lymphocyte # 0.39 X10^3/ul (4.0); Lymphocyte % 2.6 % (19-41); Mean Corpuscular Hgb 31.4 pg (27.0-32.0); Mean Corpuscular Volume 95.3 fL (80-94); Mean Platelet Vol. 9.7 fl (6.2-12.0); Monocyte# 0.45 X10^3/uL; NRBC Flagged by Analyzer 0 % (0-5); Neutrophil # 14.14 X10^3/uL (2.7-7.7); Neutrophil % 93.2 % (47-70); POSITIVE DIFFERENTIAL YES; Platelet Count 295 K/mm3 (150-450); RBC Distribution Width CV 12.9 % (11.6-14.6); RBC Distribution Width SD 45.4 fl (35.1-43.9); Red Blood Count 4.07 M/mm3 (4.6-6.2); White Blood Count 15.2 K/mm3 (4.4-11.0)
[2020-07-16 12:15] LABS: Differential Indicated SCAN CRITERIA MET
[2020-07-16 13:04] LABS: Platelet Estimate ADEQUATE (ADEQ)
--- NOTE | 2020-07-16 14:31 | CT_ITS ---
STUDY: CTA HEAD AND NECK WITH CONTRAST REASON FOR EXAM: Male, 75 years old. CONFUSION altered mental status, unresponsive RADIATION DOSAGE (If Supplied By Facility): CTDIvol = ( 12.94 ) mGy, DLP = ( 661.33 ) mGycm TECHNIQUE: CT angiography was performed with a multi-detector CT scanner. Data acquisition was obtained from the skull base through the vertex following intravenous administration of IV 100mL Isovue-370. MIP images were reconstructed from the axial data set. Post-processing of the angiographic images was performed, with multiplanar reformation and 3D reconstruction. Individualized dose optimization techniques were used for this CT. COMPARISON: No relevant priors. FINDINGS: Normal bilateral petrous carotid arteries. Normal right cavernous carotid artery with a normal supraclinoid bifurcation. Normal left cavernous carotid artery with a normal supraclinoid bifurcation. Normal right A1 segments of the anterior cerebral artery. Normal left A1 segments of the anterior cerebral artery. Normal intact anterior communicating artery (ACOM). Normal bilateral A2 segments of the anterior cerebral arteries. Normal right M1 and M2 segments of the middle cerebral arteries, with a normal M1 bifurcation. Normal left M1 and M2 segments of the middle cerebral arteries, with a normal M1 bifurcation. Normal right posterior communicating artery (PCOM). Normal left posterior communicating artery (PCOM). Normal bilateral vertebral arteries. Normal basilar artery with a normal basilar bifurcation. The visualized bilateral superior cerebellar (SCA) arteries are normal. Normal bilateral P1, P2 and visualized P3 segments of the posterior cerebral arteries. There is no demonstrated aneurysm of the [place]. There is no demonstrated abnormality of the visualized brain. AORTIC ARCH: Normal visualized aortic arch. Normal origins of the brachiocephalic, left common carotid, and left subclavian arteries. RIGHT CAROTID ARTERIES: Normal right common carotid artery (CCA). Normal right common carotid bulb. Normal origin of the right internal carotid (ICA) artery without a hemodynamically significant stenosis. Normal visualized cervical portion of the right internal carotid artery. Normal origin of the right external carotid artery (ECA). LEFT CAROTID ARTERIES: Normal left common carotid artery (CCA). Normal left common carotid bulb. Normal origin of the left internal carotid (ICA) artery without a hemodynamically significant stenosis. Normal visualized cervical portion of the left internal carotid artery. Normal origin of the left external carotid artery (ECA). VERTEBRAL ARTERIES: Both vertebral arteries arise from the subclavian arteries. There is 75% stenosis of the origin of the left vertebral artery with remainder of the vertebral artery patent. Right vertebral artery is patent. Vertebral arteries are codominant. Lung apices are clear with tic and interstitial markings, nonspecific, possibly mild pulmonary edema. There is multilevel spondylotic mild to moderate thecal sac compression. CT/CTA Head AND Neck W/ Contrast IMPRESSION: 1. Patent cranial arteries. 2. Patent anterior cervical arteries and right vertebral artery. 3. 75% stenosis at the origin of the left vertebral artery. Electronically Signed: Pito Kline, at 16:56 EDT Tel , Service support ,
--- NOTE | 2020-07-16 15:03 | PN_ITS ---
Patient Problems: Active and Suspected Problems Pneumonia (Acute) Sepsis (Acute) Subjective: Called at about 11:30 for AMS changes and decreased responsiveness. Pt evaluated and difficult to obtain an NIH with decreased MS and inability to follow commands but pt was moving all extremities symmetrically. ABG obtained and was WNL. Ammonia WNL. CT head with no acute findings. Neuro consulted and suspect acute stroke with last know normal at 8 am. Vitals/I&O's: Vital Signs Temp Pulse Resp BP Pulse Ox 100.2 F H 106 H 20 H 154/81 H 96 07/16/20 08:50 07/16/20 13:05 07/16/20 13:05 07/16/20 08:50 07/16/20 08:50 Oxygen Flow Rate (L/min) 4 Oxygen Delivery Method Nasal Cannula Weight: 80.739 kg Body Mass Index (BMI) 23.5 Intake and Output for Last 24 Hours 07/14/20 07/15/20 07/16/20 23:59 23:59 23:59 Intake Total 170 / 670 2200 / 2200 340 / 340 Output Total 1450 / 1450 750 / 750 750 / 750 Balance -1280 / -780 1450 / 1450 -410 / -410 General: No apparent distress, Well developed, Well nourished, Confused, Disoriented, Lethargic, Non-Cooperative HEENT: Atraumatic, PERRLA, EOMI, Normocephalic, EAC Clear Oral: Moist Mucosa, No Gingival or Mucosal Lesions/ Ulcerations, - - no thrush Neck: Supple, No JVD, Trachea Midline, Thyroid Normal Size and Texture Lungs: Normal air movement, No rhonchi, No wheeze, No rales, Diminished - severely Cardiovascular: Regular rate, Regular Rhythm, Normal S1, Normal S2, No murmurs, No Ectopic Activity, No rub noted, No Gallop Abdomen: Bowel Sounds Present, Soft, Non Tender, Non-Distended, No Hepato- splenomegaly Extremities: No cyanosis, No edema, Capillary Refill Less than 3 Seconds, Clubbing - mild, Peripheral Pulses Normal Skin: No rashes, No breakdown Musculoskeletal: No Tenderness to Palpation of Joints or Extremities, No Muscle Wasting, Arthritic Changes, - - thin but not cachetic Lymphatic: No Cervical, Supraclavicular, or Inguinal Adenopathy Neurological: Deep Tendon Reflexes 2+/4 and Symmetrical, Slurred Speech, - - decreased MS and somnolent. no decreased motor strength noted on exam and DTR's WNL. CN exam difficult but no obvious abnomalities Psych/Mental Status: Flat Affect, - - sleepy and difficult to fully assess Microbiology Past 72 Hours 07/13/20 13:45 Blood Culture (Wb) - Left Hand Blood Culture - Preliminary No growth in 48 hours. 07/13/20 13:55 Blood Culture (Wb) - Anticubital Right Blood Culture - Preliminary No growth in 48 hours. 07/13/20 14:05 Mucosa - Nasopharyngeal Respiratory Panel (PCR) - Final Laboratory Results 07/16/20 11:00: POC Glucose 127 H 07/16/20 11:21: Specimen Type ART, Sample Site R Radial, pH 7.43, Bicarbonate Actual 28.1 H, Total CO2 29, Base Excess 4 H, O2 Saturation 95, ABG pCO2 42.4, ABG pO2 76, Emil Test Positive, O2 Delivery Device Cannula, Liter Flow 4.0 07/16/20 11:30: Ammonia < 10.0 L 07/16/20 11:30: WBC 15.2 H, RBC 4.07 L, Hgb 12.8 L, Hct 38.8 L, MCV 95.3 H, MCH 31.4, MCHC 33.0, RDW Std Deviation 45.4 H, RDW Coeff of Araseli 12.9, Plt Count 295, MPV 9.7, Immature Gran % (Auto) 1.100 H, Neut % (Auto) 93.2 H, Lymph % (Auto) 2.6 L, [place] % (Auto) 3.0, Eos % (Auto) 0.0, Baso % (Auto) 0.1, Absolute Neuts (auto) 14.1 H, Absolute Lymphs (auto) 0.39 L, Nucleated RBC % 0, Platelet Estimate ADEQUATE 07/16/20 11:30: Sodium 132 L, Potassium 3.7, Chloride 98, Carbon Dioxide 29.0, Anion Gap 5, BUN 18, Creatinine 1.22, Estim Creat Clear Calc 58.21, Est GFR (MDRD) Af Amer 74, Est GFR (MDRD) Non-Af 61, BUN/Creatinine Ratio 14.8, Glucose 124 H, Calcium 8.1 L, Total Bilirubin 0.50, AST 53 H, ALT 66 H, Alkaline Phosphatase 42 L, Total Protein 6.8, Albumin 2.9 L, Globulin 3.9, Albumin/Globulin Ratio 0.7 L 07/16/20 11:30: Lactic Acid 1.1 Current Medications Acetaminophen (Acetaminophen 325 Mg Tablet) 650 mg PO Q6H PRN PRN PRN Reason: HEADACHE Last Admin: 07/15/20 21:55 Dose: 650 mg Documented by: Albuterol Sulfate (Albuterol 2.5 Mg/3 Ml Vial.Neb.) 2.5 mg INHALATION Q2H PRN PRN PRN Reason: SOB/Wheezing Albuterol/Ipratropium (Ipratropium/Albuterol Sulfate 3 Ml Ampul.Neb) 3 ml INHALATION Q6H.RT [facility] Last Admin: 07/16/20 13:05 Dose: 3 ml Documented by: Amlodipine Besylate (Amlodipine 10 Mg Tablet) 10 mg PO QHS [facility] Last Admin: 07/15/20 21:55 Dose: 10 mg Documented by: Aspirin (Aspirin E.C. 81 Mg Tablet) 81 mg PO QHS [facility] Last Admin: 07/15/20 21:55 Dose: 81 mg Documented by: Enoxaparin Sodium (Enoxaparin 40 Mg/0.4 Ml Syringe) 40 mg SC DAILY [facility] Last Admin: 07/15/20 09:00 Dose: 40 mg Documented by: Fluticasone Propionate (Fluticasone 0.05% 1 [place] Nasal.Sry) 2 spray NASAL DAILY [facility] Last Admin: 07/16/20 12:02 Dose: 2 spray Documented by: Hydralazine HCl (Hydralazine 20 Mg/Ml Vial) 5 mg IV Q30M PRN PRN Reason: to maintain BP goals Piperacillin Sod/Tazobactam (Sod 3.375 gm/ Sodium Chloride) 50 mls @ 12.5 mls/hr IV Q8 [facility] Last Admin: 07/16/20 14:28 Dose: 12.5 mls/hr Documented by: Labetalol HCl (Labetalol (Prefilled) 20 Mg/4 Ml) 10 - 20 mg IV Q10M PRN PRN PRN Reason: to Maintain BP Goals Levothyroxine Sodium (Levothyroxine 50 Mcg Tablet) 50 mcg PO DAILY@0600 [facility] Last Admin: 07/16/20 06:24 Dose: 50 mcg Documented by: Ondansetron HCl (Ondansetron 4 Mg/2 Ml Vial) 4 mg IV Q8H PRN PRN PRN Reason: NAUSEA/VOMITING Pravastatin Sodium (Pravastatin 20 Mg Tablet) 20 mg PO QHS [facility] Last Admin: 07/15/20 21:55 Dose: 20 mg Documented by: Prednisone (Prednisone 20 Mg Tablet) 60 mg PO DAILY@0800 [facility] Last Admin: 07/16/20 08:02 Dose: 60 mg Documented by: Senna/Docusate Sodium (Senna/Docusate Sodium 1 Tablet) 2 tablet PO BID PRN PRN PRN Reason: Constipation Sodium Chloride (0.9% Saline Lock 10 Ml Syringe) 10 - 40 ml IV UD PRN PRN Reason: SALINE FLUSH Last Admin: 07/15/20 16:54 Dose: 20 ml Documented by: Tamsulosin HCl (Tamsulosin Hcl 0.4 Mg Capsule) 0.4 mg PO DAILY@1730 [facility] Last Admin: 07/15/20 16:59 Dose: 0.4 mg Documented by: Zolpidem Tartrate (Zolpidem Tartrate 5 Mg Tablet) 5 mg PO QHS PRN PRN PRN Reason: INSOMNIA STROKE Vital Signs/Narrative: Vital Signs Pulse Resp 07/16/20 13:05 106 H 20 H Medical Necessity - Tobacco Use Smoking Status: Never smoker Tobacco Use: Secondhand Assessment/Plan All Active Problems Pneumonia (Acute) Sepsis (Acute) ASSESSMENT Acute MS Changes with suspected Stroke Acute on Chronic Respiratory Failure Acute Sepsis 2/2 ? 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
--- NOTE | 2020-07-16 15:20 | TELEMED_ITS ---
[facility] Tele[facility] has confirmed receipt of a request for visit. This document confirms receipt of the order initiating the consult. To find the results of the consultation, please view the patient's reports for the scanned Telemed Consult.
[2020-07-16] MEDS: Acetaminophen 325 MG Tablet 650 MG PO (15:58)
--- NOTE | 2020-07-16 17:16 | PCM.HOSP.N ---
Hospitalist Note CTA reviewed and no acute cut off's noted
[2020-07-16] MEDS: Tamsulosin HCl 0.4 MG Capsule PO (18:10)
[2020-07-16] MEDS: Aspirin E.C. 81 MG Tablet PO (22:01)
[2020-07-16] MEDS: Pravastatin 20 MG Tablet PO (22:01)
[2020-07-16] MEDS: amLODIPine 10 MG Tablet PO (22:01)
--- NOTE | 2020-07-16 22:15 | NURSING ---
Per NIHSS assessment patient would score a 0 on the scale with this NIHSS. During vital signs and pill administration patient was having trouble finding words but could read NIH booklet without any issues. For example patient was asking if both of his sleeves were still on but instead he said are my entrances on? This phrase was stated multiple times but patient could not find his words even after being told what he was trying to say.
[2020-07-17] VITALS (13 sets, daily range): BP systolic 137–154; BP diastolic 77–92; PULSE 82–111; RESP 16–22; TEMP 36.6–36.9; O2SAT 96–98
[2020-07-17] MEDS: Ipratropium/Albuterol Sulfate 3 ML AMPUL.NEB INHALATION ×3 (02:25→20:16)
[2020-07-17] MEDS: Levothyroxine 50 MCG Tablet PO (05:23)
--- NOTE | 2020-07-17 05:31 | CPS ---
pt too confused for pep most of shift
[2020-07-17 06:05] LABS: Absolute Lymphocyte Count 1.88 X10^3/uL (0.83-4.51); Absolute Neutrophil Count 10.5 X10^3/uL (2.0-7.7); Basophil# 0.02 X10^3/uL; Basophil% 0.1 % (0-1); Eosinophil# 0.03 X10^3/uL; Eosinophils% 0.2 % (0-5); Hematocrit 39.9 % (40-54); Hemoglobin 13.4 g/dL (13.0-16.5); Lymphocyte # 1.88 X10^3/ul (4.0); Lymphocyte % 13.5 % (19-41); Mean Corp Hgb Conc 33.6 g/dL (32-36); Mean Corpuscular Hgb 31.8 pg (27.0-32.0); Mean Corpuscular Volume 94.5 fL (80-94); Mean Platelet Vol. 9.5 fl (6.2-12.0); Monocyte# 1.43 X10^3/uL; Monocyte% 10.2 % (0-10); NRBC Flagged by Analyzer 0 % (0-5); Neutrophil # 10.52 X10^3/uL (2.7-7.7); Neutrophil % 75.4 % (47-70); Platelet Count 304 K/mm3 (150-450); RBC Distribution Width CV 12.7 % (11.6-14.6); RBC Distribution Width SD 44.3 fl (35.1-43.9); Red Blood Count 4.22 M/mm3 (4.6-6.2)
[2020-07-17 06:25] LABS: Anion Gap 5 (5-15); BUN 14 mg/dL (7-18); Calcium,Total 8.1 mg/dL (8.5-10.1); Chloride 98 mmol/L (98-107); Cholesterol 167 mg/dL (200); EST Glomerular Filtration Rate 77 mL/min (>60); Est Glom Filt Rate - Afr Amer 93 mL/min (>60); Estimated Creatinine Clearance 71.02 ml/min; Glucose 88 mg/dL (74-106); High Density Lipoprotein 66 mg/dL; Potassium 3.7 mmol/L (3.5-5.1); Sodium Level 132 mmol/L (136-145); Triglycerides 86 mg/dL; Very Low Density Lipoprotein 17 mg/dL (5-40)
[2020-07-17] MEDS: Fluticasone 0.05% 1 SPRAY NASAL.SRY 2 SPRAY NASAL (09:10)
[2020-07-17] MEDS: predniSONE 20 MG Tablet 60 MG PO (09:11)
[2020-07-17] MEDS: Clopidogrel Bisulfate 75 MG Tablet PO (09:11)
[2020-07-17] MEDS: Enoxaparin 40 MG/0.4 ML Syringe SC (09:12)
--- NOTE | 2020-07-17 12:40 | PN_ITS ---
<Ike Garcias - Last Filed: 07/17/20 12:40> Patient Problems: Active and Suspected Problems Pneumonia (Acute) Sepsis (Acute) Reason for Visit: altered mental status, sob. Subjective: Patient resting comfortably in bed no acute distress. He is somewhat tired but easily awakened, communicative, alert and oriented x3. He reports his breathing is mildly improved versus his last 2 days. He has chronic shortness of breath, he is improved but not quite returned to his baseline. Nonproductive cough. No fevers or chills. No focal weakness. No dizziness, lightheadedness, vision changes. Vitals/I&O's: Vital Signs Temp Pulse Resp BP Pulse Ox 97.8 F 94 16 145/80 H 97 07/17/20 09:03 07/17/20 09:03 07/17/20 09:03 07/17/20 09:03 07/17/20 09:03 Oxygen Flow Rate (L/min) 5 Oxygen Delivery Method Nasal Cannula Weight: 177 lb 15.984 oz Body Mass Index (BMI) 23.5 Intake and Output for Last 24 Hours 07/15/20 07/16/20 07/17/20 23:59 23:59 23:59 Intake Total 2200 / 2200 750 / 750 219.38 / 219.38 Output Total 750 / 750 1150 / 1150 350 / 350 Balance 1450 / 1450 -400 / -400 -130.62 / -130.62 General: Alert, Oriented x3, Cooperative HEENT: Atraumatic, PERRLA, EOMI, Normocephalic Neck: Supple, No JVD, Negative Carotid Bruits Lungs: Clear to auscultation, Diminished Cardiovascular: Regular rate, No murmurs Abdomen: Bowel Sounds Present, Soft, Non Tender Extremities: No edema, Capillary Refill Less than 3 Seconds Skin: No rashes, No breakdown Musculoskeletal: No Tenderness to Palpation of Joints or Extremities Neurological: Cranial nerves II-XII grossly intact Psych/Mental Status: Normal Affect, Appropriate, Alert and oriented to time, place, person, mood and affect Microbiology Past 72 Hours 07/13/20 13:45 Blood Culture (Wb) - Left Hand Blood Culture - Preliminary No growth in 48 hours. 07/13/20 13:55 Blood Culture (Wb) - Anticubital Right Blood Culture - P reliminary No growth in 48 hours. Laboratory Results 07/16/20 11:30: Platelet Estimate ADEQUATE 07/17/20 05:30: WBC 14.0 H, RBC 4.22 L, Hgb 13.4, Hct 39.9 L, MCV 94.5 H, MCH 31.8, MCHC 33.6, RDW Std Deviation 44.3 H, RDW Coeff of Araseli 12.7, Plt Count 304, MPV 9.5, Immature Gran % (Auto) 0.600, Neut % (Auto) 75.4 H, Lymph % (Auto) 13.5 L, [place] % (Auto) 10.2 H, Eos % (Auto) 0.2, Baso % (Auto) 0.1, Absolute Neuts (auto) 10.5 H, Absolute Lymphs (auto) 1.88, Nucleated RBC % 0 07/17/20 05:30: Sodium 132 L, Potassium 3.7, Chloride 98, Carbon Dioxide 29.0, Anion Gap 5, BUN 14, Creatinine 1.00, Estim Creat Clear Calc 71.02, Est GFR (MDRD) Af Amer 93, Est GFR (MDRD) Non-Af 77, BUN/Creatinine Ratio 14.0, Glucose 88, Calcium 8.1 L, Triglycerides 86, Cholesterol 167, LDL Cholesterol 84, VLDL Cholesterol 17, HDL Cholesterol 66 Current Medications Acetaminophen (Acetaminophen 325 Mg Tablet) 650 mg PO Q6H PRN PRN PRN Reason: HEADACHE Last Admin: 07/16/20 15:58 Dose: 650 mg Documented by: Albuterol Sulfate (Albuterol 2.5 Mg/3 Ml Vial.Neb.) 2.5 mg INHALATION Q2H PRN PRN PRN Reason: SOB/Wheezing Albuterol/Ipratropium (Ipratropium/Albuterol Sulfate 3 Ml Ampul.Neb) 3 ml INHALATION Q6H.RT CHAD Last Admin: 07/17/20 02:25 Dose: 3 ml Documented by: Amlodipine Besylate (Amlodipine 10 Mg Tablet) 10 mg PO QHS [facility] Last Admin: 07/16/20 22:01 Dose: 10 mg Documented by: Aspirin (Aspirin E.C. 81 Mg Tablet) 81 mg PO QHS [facility] Last Admin: 07/16/20 22:01 Dose: 81 mg Documented by: Clopidogrel Bisulfate (Clopidogrel Bisulfate 75 Mg Tablet) 75 mg PO DAILY [facility] Last Admin: 07/17/20 09:11 Dose: 75 mg Documented by: Enoxaparin Sodium (Enoxaparin 40 Mg/0.4 Ml Syringe) 40 mg SC DAILY [facility] Last Admin: 07/17/20 09:12 Dose: 40 mg Documented by: Fluticasone Propionate (Fluticasone 0.05% 1 [place] Nasal.Sry) 2 spray NASAL DAILY [facility] Last Admin: 07/17/20 09:10 Dose: 2 spray Documented by: Hydralazine HCl (Hydralazine 20 Mg/Ml Vial) 5 mg IV Q30M PRN PRN Reason: to maintain BP goals Piperacillin Sod/Tazobactam (Sod 3.375 gm/ Sodium Chloride) 50 mls @ 12.5 mls/hr IV Q8 [facility] Last Infusion: 07/17/20 09:20 Dose: Infused Documented by: Labetalol HCl (Labetalol (Prefilled) 20 Mg/4 Ml) 10 - 20 mg IV Q10M PRN PRN PRN Reason: to Maintain BP Goals Levothyroxine Sodium (Levothyroxine 50 Mcg Tablet) 50 mcg PO DAILY@0600 [facility] Last Admin: 07/17/20 05:23 Dose: 50 mcg Documented by: Ondansetron HCl (Ondansetron 4 Mg/2 Ml Vial) 4 mg IV Q8H PRN PRN PRN Reason: NAUSEA/VOMITING Pravastatin Sodium (Pravastatin 20 Mg Tablet) 20 mg PO QHS [facility] Last Admin: 07/16/20 22:01 Dose: 20 mg Documented by: Prednisone (Prednisone 20 Mg Tablet) 60 mg PO DAILY@0800 [facility] Last Admin: 07/17/20 09:11 Dose: 60 mg Documented by: Senna/Docusate Sodium (Senna/Docusate Sodium 1 Tablet) 2 tablet PO BID PRN PRN PRN Reason: Constipation Sodium Chloride (0.9% Saline Lock 10 Ml Syringe) 10 - 40 ml IV UD PRN PRN Reason: SALINE FLUSH Last Admin: 07/15/20 16:54 Dose: 20 ml Documented by: Tamsulosin HCl (Tamsulosin Hcl 0.4 Mg Capsule) 0.4 mg PO DAILY@1730 [facility] Last Admin: 07/16/20 18:10 Dose: 0.4 mg Documented by: Zolpidem Tartrate (Zolpidem Tartrate 5 Mg Tablet) 5 mg PO QHS PRN PRN PRN Reason: INSOMNIA STROKE Vital Signs/Narrative: Vital Signs Temp Pulse Resp BP Pulse Ox 07/17/20 09:03 97.8 F 94 16 145/80 H 97 Medical Necessity - Tobacco Use Smoking Status: Never smoker Tobacco Use: Secondhand Assessment/Plan All Active Problems Pneumonia (Acute) Sepsis (Acute) 1. Acute sepsis 2/2 CAP complicated by chronic hypoxic respiratory failure 2/2 pulmonary fibrosis - stable, no increased O2 demand and lungs fairly clear and moving air well on exam. at 5-10 lpm o2 at baseline. Pt of [facility] pulmonology. Perfenidone held. Continue steroids, zosyn, aerosols, incentive spirometer, pep therapy. Fever resolved. Leukocytosis resolved. Echo with pulmonary HTN and preserved EF. Plan for prednisone taper and levaquin course at [place]. Covid neg. Blood cx neg. resp panel neg. 2. Altered mental status - suspected TIA. EEG without acute changes. CT brain and MRI brain negative for stroke. Continue asa/plavix/statin. 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 plan for vascular referral at [place]. telemetry reviewed - no atrial fibrillation. Echo with no ASD. 2. Hx CAD - prior stents. continue asa/statin. 3. HTN- continue norvasc. 4. HLD - on statin 5. Hypothyroidism - continue synthroid DVT ppx: lovenox DC planning: mentation improved, monitor overnight. This patient was seen by Ike Garcias PA-C under the supervision of Doctor Alphonso. <Dora Werner - Last Filed: 07/17/20 13:03> Subjective: Back to baseline MS today and able to speak fluently again today. Does not remember much of yesterday. EEG not + for seizure and pt was symptomatic during test. Breathing is a baseline. Vitals/I&O's: Vital Signs Temp Pulse Resp BP Pulse Ox 97.8 F 94 16 145/80 H 97 07/17/20 09:03 07/17/20 09:03 07/17/20 09:03 07/17/20 09:03 07/17/20 09:03 Oxygen Flow Rate (L/min) 5 Oxygen Delivery Method Nasal Cannula Weight: 80.739 kg Body Mass Index (BMI) 23.5 Intake and Output for Last 24 Hours 07/15/20 07/16/20 07/17/20 23:59 23:59 23:59 Intake Total 2200 / 2200 750 / 750 219.38 / 219.38 Output Total 750 / 750 1150 / 1150 350 / 350 Balance 1450 / 1450 -400 / -400 -130.62 / -130.62 General: Alert, Oriented x3, Cooperative, No apparent distress, Well developed, Well nourished, - - Lying in bed, appears comfortable, brother at bedside HEENT: Atraumatic, Normocephalic Oral: Moist Mucosa Lungs: Clear to auscultation, No rhonchi, No wheeze, No rales, Diminished Cardiovascular: Regular rate, Regular Rhythm, Normal S1, Normal S2, No murmurs, No Ectopic Activity, No rub noted, No Gallop Abdomen: Bowel Sounds Present, Non Tender, Non-Distended Extremities: No cyanosis, No edema, Capillary Refill Less than 3 Seconds, Clubbing, Peripheral Pulses Normal Neurological: Cranial nerves II-XII grossly intact, Neuro grossly intact, Muscle tone normal, Coordination normal Psych/Mental Status: Appropriate, Flat Affect Microbiology Past 72 Hours 07/13/20 13:45 Blood Culture (Wb) - Left Hand Blood Culture - Preliminary No growth in 48 hours. 07/13/20 13:55 Blood Culture (Wb) - Anticubital Right Blood Culture - Prelim inary No growth in 48 hours. Laboratory Results 07/16/20 11:30: Platelet Estimate ADEQUATE 07/17/20 05:30: WBC 14.0 H, RBC 4.22 L, Hgb 13.4, Hct 39.9 L, MCV 94.5 H, MCH 31.8, MCHC 33.6, RDW Std Deviation 44.3 H, RDW Coeff of Araseli 12.7, Plt Count 304, MPV 9.5, Immature Gran % (Auto) 0.600, Neut % (Auto) 75.4 H, Lymph % (Auto) 13.5 L, [place] % (Auto) 10.2 H, Eos % (Auto) 0.2, Baso % (Auto) 0.1, Absolute Neuts (auto) 10.5 H, Absolute Lymphs (auto) 1.88, Nucleated RBC % 0 07/17/20 05:30: Sodium 132 L, Potassium 3.7, Chloride 98, Carbon Dioxide 29.0, Anion Gap 5, BUN 14, Creatinine 1.00, Estim Creat Clear Calc 71.02, Est GFR (MDRD) Af Amer 93, Est GFR (MDRD) Non-Af 77, BUN/Creatinine Ratio 14.0, Glucose 88, Calcium 8.1 L, Triglycerides 86, Cholesterol 167, LDL Cholesterol 84, VLDL Cholesterol 17, HDL Cholesterol 66 Current Medications Acetaminophen (Acetaminophen 325 Mg Tablet) 650 mg PO Q6H PRN PRN PRN Reason: HEADACHE Last Admin: 07/16/20 15:58 Dose: 650 mg Documented by: Albuterol Sulfate (Albuterol 2.5 Mg/3 Ml Vial.Neb.) 2.5 mg INHALATION Q2H PRN PRN PRN Reason: SOB/Wheezing Albuterol/Ipratropium (Ipratropium/Albuterol Sulfate 3 Ml Ampul.Neb) 3 ml INHALATION Q6H.RT [facility] Last Admin: 07/17/20 02:25 Dose: 3 ml Documented by: Amlodipine Besylate (Amlodipine 10 Mg Tablet) 10 mg PO QHS [facility] Last Admin: 07/16/20 22:01 Dose: 10 mg Documented by: Aspirin (Aspirin E.C. 81 Mg Tablet) 81 mg PO QHS [facility] Last Admin: 07/16/20 22:01 Dose: 81 mg Documented by: Clopidogrel Bisulfate (Clopidogrel Bisulfate 75 Mg Tablet) 75 mg PO DAILY [facility] Last Admin: 07/17/20 09:11 Dose: 75 mg Documented by: Enoxaparin Sodium (Enoxaparin 40 Mg/0.4 Ml Syringe) 40 mg SC DAILY [facility] Last Admin: 07/17/20 09:12 Dose: 40 mg Documented by: Fluticasone Propionate (Fluticasone 0.05% 1 [place] Nasal.Sry) 2 spray NASAL DAILY [facility] Last Admin: 07/17/20 09:10 Dose: 2 spray Documented by: Hydralazine HCl (Hydralazine 20 Mg/Ml Vial) 5 mg IV Q30M PRN PRN Reason: to maintain BP goals Piperacillin Sod/Tazobactam (Sod 3.375 gm/ Sodium Chloride) 50 mls @ 12.5 mls/hr IV Q8 [facility] Last Infusion: 07/17/20 09:20 Dose: Infused Documented by: Labetalol HCl (Labetalol (Prefilled) 20 Mg/4 Ml) 10 - 20 mg IV Q10M PRN PRN PRN Reason: to Maintain BP Goals Levothyroxine Sodium (Levothyroxine 50 Mcg Tablet) 50 mcg PO DAILY@0600 [facility] Last Admin: 07/17/20 05:23 Dose: 50 mcg Documented by: Ondansetron HCl (Ondansetron 4 Mg/2 Ml Vial) 4 mg IV Q8H PRN PRN PRN Reason: NAUSEA/VOMITING Pravastatin Sodium (Pravastatin 20 Mg Tablet) 20 mg PO QHS [facility] Last Admin: 07/16/20 22:01 Dose: 20 mg Documented by: Prednisone (Prednisone 20 Mg Tablet) 60 mg PO DAILY@0800 [facility] Last Admin: 07/17/20 09:11 Dose: 60 mg Documented by: Senna/Docusate Sodium (Senna/Docusate Sodium 1 Tablet) 2 tablet PO BID PRN PRN PRN Reason: Constipation Sodium Chloride (0.9% Saline Lock 10 Ml Syringe) 10 - 40 ml IV UD PRN PRN Reason: SALINE FLUSH Last Admin: 07/15/20 16:54 Dose: 20 ml Documented by: Tamsulosin HCl (Tamsulosin Hcl 0.4 Mg Capsule) 0.4 mg PO DAILY@1730 [facility] Last Admin: 07/16/20 18:10 Dose: 0.4 mg Documented by: Zolpidem Tartrate (Zolpidem Tartrate 5 Mg Tablet) 5 mg PO QHS PRN PRN PRN Reason: INSOMNIA STROKE Vital Signs/Narrative: Vital Signs Temp Pulse Resp BP Pulse Ox 07/17/20 09:03 97.8 F 94 16 145/80 H 97 Assessment/Plan I agree with the above and the following is a representation of my independent history and exam ASSESSMENT Acute MS Changes with TIA Acute on Chronic Respiratory Failure Acute Sepsis 2/2 ? PNA L Verterbral Artery Stenosis URI/Sinusitis MEJIA IPF Hyponatremia-chronic HTN Hypothyroidism HPL PAH Mild CAD s/p stent PLAN -pt seems back to baseline -CTA with no acute cut offs but 75% Vert aa stenosis -MRI without acute stroke -EEG showed only non-specific changes but no epileptiform activity -ECHO already done and shows PAH with RVSP of 50 mmHg -on pravastatin 80 -LDL was 84--> continue high dose statin -DAPT until f/u with neuro -BP control -continue Zosyn -Day 5/7 for abx --> would send with [facility] to complete course -wean steroids to 40 mg daily and d/c with taper -d/c to rehab if still willing to accept Inpatient E&M: 41929 Subs Hosp L2
--- NOTE | 2020-07-17 13:58 | CPS ---
PATIENT REFUSED BREATHING TREATMENT AT 7:19
--- NOTE | 2020-07-17 14:22 | MRI_ITS ---
STUDY: MRI BRAIN WITHOUT CONTRAST REASON FOR EXAM: Male, 75 years old. aphasia, confusion, weakness, concern for stroke TECHNIQUE: Standardized multiplanar fat and water weighted pulse sequences were obtained. COMPARISON: 07/16/2020 CT of the head FINDINGS: There is mild cerebral atrophy with widening of the extra-axial spaces and ventricular dilatation. There are a limited number of small white matter hyperintensities, distributed throughout the deep white matter tracts of the cerebral hemispheres, consistent with mild chronic white matter ischemic changes. Normal bilateral basal ganglia. Normal thalami. There is no extra-axial fluid accumulation. Normal flow voids within the major intracranial circulation suggesting patency by spin echo criteria. Normal sella turcica, pituitary gland, infundibular stalk, optic chiasm and hypothalamus. Normal tectal plate and pineal gland. Normal midbrain, yuko and medulla. Normal cerebellum. Normal basal cisterns. There is left mastoid disease. MRI/Brain without Contrast IMPRESSION: No acute intracranial abnormality. Electronically Signed: Pito Rincon MD at 11:06 EDT Tel , Service support ,
[2020-07-17] MEDS: Tamsulosin HCl 0.4 MG Capsule PO (17:45)
[2020-07-17] MEDS: 0.9% Saline Lock 10 ML Syringe IV (22:18)
[2020-07-17] MEDS: Aspirin E.C. 81 MG Tablet PO (22:20)
[2020-07-17] MEDS: Carvedilol 6.25 MG Tablet PO (22:20)
[2020-07-17] MEDS: Pravastatin 20 MG Tablet PO (22:20)
[2020-07-17] MEDS: amLODIPine 5 MG Tablet PO (22:21)
[2020-07-18] VITALS (8 sets, daily range): BP systolic 136–148; BP diastolic 80–83; PULSE 71–94; RESP 16–20; TEMP 36.6–36.8; O2SAT 98–99
--- NOTE | 2020-07-18 01:44 | CPS ---
NO aerosol tx given, pt sleeping
[2020-07-18] MEDS: Levothyroxine 50 MCG Tablet PO (05:04)
[2020-07-18 06:45] LABS: Anion Gap 5 (5-15); BUN 19 mg/dL (7-18); BUN/Creat Ratio 17.6 RATIO (10-20); Calcium,Total 8.2 mg/dL (8.5-10.1); Chloride 98 mmol/L (98-107); Creatinine, Serum 1.08 mg/dL (0.70-1.30); EST Glomerular Filtration Rate 71 mL/min (>60); Est Glom Filt Rate - Afr Amer 85 mL/min (>60); Estimated Creatinine Clearance 65.76 ml/min; Glucose 96 mg/dL (74-106); Potassium 3.9 mmol/L (3.5-5.1); Sodium Level 131 mmol/L (136-145)
[2020-07-18] MEDS: Ipratropium/Albuterol Sulfate 3 ML AMPUL.NEB INHALATION (07:41)
[2020-07-18] MEDS: predniSONE 20 MG Tablet 40 MG PO (09:26)
[2020-07-18] MEDS: Fluticasone 0.05% 1 SPRAY NASAL.SRY 2 SPRAY NASAL (09:27)
[2020-07-18] MEDS: Enoxaparin 40 MG/0.4 ML Syringe SC (09:27)
[2020-07-18] MEDS: Clopidogrel Bisulfate 75 MG Tablet PO (09:27)
[2020-07-18] MEDS: Carvedilol 6.25 MG Tablet PO (09:30)
--- NOTE | 2020-07-18 11:45 | PCM.DC ---
- Discharge Diagnoses Current Active Problems: Current Active and Chronic Problems Pneumonia (Acute) Sepsis (Acute) Hyperlipidemia (Chronic) Coronary artery disease (Chronic) Status post stents. Hypertension (Chronic) Pulmonary fibrosis (Chronic) Chronic respiratory failure (Chronic) You will use the following diet at home:: Cardiac Your food should be the consistency of: Regular Your liquids should be the consistency of: Regular/Thin Discharge Activity: Return to Normal Activity Allergies/Adverse Reactions: Allergies No Known Allergies Allergy (Verified 08/25/18 09:36) Medications to take at Discharge Pirfenidone [Esbriet] 801 mg PO TID 07/03/16 Aspirin E.C. [Ecotrin] 81 mg PO QHS 08/25/18 Calcium Citrate/Vitamin D3 [Citracal-D3 200Mg-250 Unit Tab] 1 tab PO DAILY 08/25/18 Pravastatin Sodium [Pravachol] 20 mg PO QHS 08/25/18 Cholecalciferol (Vitamin D3) [Vitamin D3] 2,000 unit PO QHS 07/13/20 Levothyroxine Sodium 50 mcg PO DAILY 07/13/20 Prednisone 5 mg PO DAILY 07/13/20 Fluticasone 0.05% [Flonase Nasal [place]] 2 spray NASAL DAILY nasal.sry 07/15/20 Ipratropium/Albuterol Sulfate [Duoneb] 3 ml INHALATION Q6H.RT ampul.neb 07/15/20 Senna/Docusate Sodium [Senokot-S] 2 tab PO BID PRN PRN tab 07/15/20 Tamsulosin HCl [Flomax] 0.4 mg PO DAILY@1730 cap 07/15/20 Acetaminophen [Tylenol Tablet] 650 mg PO Q6H PRN PRN tab 07/18/20 Amlodipine [Norvasc] 5 mg PO QHS tab 07/18/20 Carvedilol [Coreg (Beta Manan)] 6.25 mg PO BID tab 07/18/20 Clopidogrel Bisulfate [Plavix] 75 mg PO DAILY tab 07/18/20 Prednisone 10 mg PO DAILY #1 tab 07/18/20 levoFLOXacin tablet [Levaquin tablet] 750 mg PO DAILY #2 tab 07/18/20 The following prescriptions were given: levoFLOXacin tablet [Levaquin tablet] 750 mg PO DAILY #2 tab Prednisone 10 mg PO DAILY #1 tab Primary Care Physician: Kevin Sutton MD [Primary Care Provider] - Please follow up with your Primary Care Physician in: 2 weeks Test Results: Test results from this visit will be discussed in further detail at your follow-up appointment, if applicable. Please Follow Up With: [facility] When: 2 weeks Please Follow Up With: Orlando Islas MD When: 2 weeks Proposed Discharge Date: 07/18/20
--- NOTE | 2020-07-18 12:14 | CASEMGMT ---
Social Work Note [facility] spoke with Ximena in [facility]. [facility] is still able to accept pt today. ISA updated pt. 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
--- NOTE | 2020-07-18 13:40 | CPS ---
NO AEROSOL RX GIVEN AT 1320...PT UNAVAILABLE
--- NOTE | 2020-07-18 14:00 | DS.PCM_ITS ---
<Ike Garcias - Last Filed: 07/18/20 14:14> Discharge Date and Diagnosis - Problem List Patient Problems: Active and Suspected Problems Pneumonia (Acute) Sepsis (Acute) Date of Admission: 07/13/20 Date of Discharge: 07/18/20 - Primary Discharge Diagnosis Acute Problems: Active Problems TIA Acute sepsis 2/2 CAP COPD exacerbation Chronic hypoxic respiratory failure 2/2 Pulmonary fibrosis - Secondary Discharge Diagnosis Chronic Problems: Chronic Problems Hyperlipidemia (Chronic) Coronary artery disease (Chronic) Status post stents. Hypertension (Chronic) Pulmonary fibrosis (Chronic) Chronic respiratory failure (Chronic) Hospital Course and Treatment Imaging Results: RAD/Chest 1 View (Portable) IMPRESSION: Since prior study, there has been a progression of increased interstitial markings with areas of confluence at the lung bases worse on the left side. This may represent progressive pulmonary scarring versus superimposed infiltrate. Consults: SOC - neurology Procedures: 2-D Echocardiogram Summary of Care Provided: Hospital course: The patient is a 75 year old M with pmhx of severe pulmonary fibrosis, chronic hypoxic respiratory failure on 6-10 lpm baseline, COPD, CAD with prior stents, who presented to the emergency room with shortness of breath progressively worsening for approximately 2 weeks. He had an associated dry cough. He was found to have mild leukocytosis cardia, tachypnea. He was stable on his home oxygen levels. Tray demonstrated increased interstitial markings with areas of confluence of the lung bases worse on the left side which represented possibly progressive scarring versus superimposed infiltrate. He was felt to have sepsis secondary to acute pneumonia, COPD exacerbation worsening of his pulmonary fibrosis. He was admitted to the PCU on telemetry and he was treated with Zosyn, Solu-Medrol, aerosol therapy. Patient stabilized with the above therapies. He developed a change in mental status later during his admission. He was found to be confused and with decreased responsiveness, difficulty following commands. His ABG was normal, ammonia was normal, CT of the brain was negative. Neurology was consulted and felt the patient may have a stroke versus TIA. MRI of the brain was obtained and did not demonstrate stroke. His mental status returned to baseline. He was placed on his prior aspirin. I have fibrillation on the monitor. He did have several brief episodes of sinus tachycardia he was placed on a low-dose of Coreg with good response. Patient was transitioned to a prednisone taper. He will need 2 more days of Levaquin to complete his antibiotic course. He was discharged to the acute rehab unit in stable condition. We recommended he follow-up with his PCP in 2 weeks and with his electronic scale subassembler at the [facility] in 2 weeks, he will also need to follow-up with neurology in 2 weeks. This patient was seen by Ike Garcias PA-C under the supervision of Doctor Jeremías. [] Patient Problems: Active and Suspected Problems Pneumonia (Acute) Sepsis (Acute) - Physical Exam Vitals/I&O's: Vital Signs Temp Pulse Resp BP Pulse Ox 98.3 F 71 18 136/83 H 98 07/18/20 09:35 07/18/20 11:00 07/18/20 09:35 07/18/20 09:35 07/18/20 09:37 Oxygen Flow Rate (L/min) 6 Oxygen Delivery Method Nasal Cannula Weight: 177 lb 15.984 oz Body Mass Index (BMI) 23.5 Intake and Output for Last 24 Hours 07/16/20 07/17/20 07/18/20 23:59 23:59 23:59 Intake Total 750 / 750 469.38 / 469.38 720 / 720 Output Total 1150 / 1150 825 / 825 2400 / 2400 Balance -400 / -400 -355.62 / -355.62 -1680 / -1680 General: Alert, Oriented x3, Cooperative HEENT: Atraumatic, PERRLA, EOMI, Normocephalic Neck: Supple, No JVD, Negative Carotid Bruits Lungs: Clear to auscultation, Normal air movement Cardiovascular: Regular rate, No murmurs Abdomen: Bowel Sounds Present, Soft, Non Tender Extremities: No edema, Capillary Refill Less than 3 Seconds Skin: No rashes, No breakdown Musculoskeletal: No Tenderness to Palpation of Joints or Extremities Neurological: Cranial nerves II-XII grossly intact Psych/Mental Status: Normal Affect, Appropriate, Anxious, Alert and oriented to time, place, person, mood and affect Microbiology Past 72 Hours 07/13/20 13:45 Blood Culture (Wb) - Left Hand Blood Culture - Preliminary No growth in 48 hours. 07/13/20 13:55 Blood Culture (Wb) - Anticubital Right Blood Culture - Preliminary No growth in 48 hours. Laboratory Results 07/18/20 05:53: Sodium 131 L, Potassium 3.9, Chloride 98, Carbon Dioxide 28.0, Anion Gap 5, BUN 19 H, Creatinine 1.08, Estim Creat Clear Calc 65.76, Est GFR (MDRD) Af Amer 85, Est GFR (MDRD) Non-Af 71, BUN/Creatinine Ratio 17.6, Glucose 96, Calcium 8.2 L Current Medications Acetaminophen (Acetaminophen 325 Mg Tablet) 650 mg PO Q6H PRN PRN PRN Reason: HEADACHE Last Admin: 07/16/20 15:58 Dose: 650 mg Documented by: Albuterol Sulfate (Albuterol 2.5 Mg/3 Ml Vial.Neb.) 2.5 mg INHALATION Q2H PRN PRN PRN Reason: SOB/Wheezing Albuterol/Ipratropium (Ipratropium/Albuterol Sulfate 3 Ml Ampul.Neb) 3 ml INHALATION Q6H.RT [facility] Last Admin: 07/18/20 07:41 Dose: 3 ml Documented by: Amlodipine Besylate (Amlodipine 5 Mg Tablet) 5 mg PO QHS [facility] Last Admin: 07/17/20 22:21 Dose: 5 mg Documented by: Aspirin (Aspirin E.C. 81 Mg Tablet) 81 mg PO QHS [facility] Last Admin: 07/17/20 22:20 Dose: 81 mg Documented by: Carvedilol (Carvedilol 6.25 Mg Tablet) 6.25 mg PO BID [facility] Last Admin: 07/18/20 09:30 Dose: 6.25 mg Documented by: Clopidogrel Bisulfate (Clopidogrel Bisulfate 75 Mg Tablet) 75 mg PO DAILY [facility] Last Admin: 07/18/20 09:27 Dose: 75 mg Documented by: Enoxaparin Sodium (Enoxaparin 40 Mg/0.4 Ml Syringe) 40 mg SC DAILY [facility] Last Admin: 07/18/20 09:27 Dose: 40 mg Documented by: Fluticasone Propionate (Fluticasone 0.05% 1 [place] Nasal.Sry) 2 spray NASAL DAILY [facility] Last Admin: 07/18/20 09:27 Dose: 2 spray Documented by: Hydralazine HCl (Hydralazine 20 Mg/Ml Vial) 5 mg IV Q30M PRN PRN Reason: to maintain BP goals Piperacillin Sod/Tazobactam (Sod 3.375 gm/ Sodium Chloride) 50 mls @ 12.5 mls/hr IV Q8 [facility] Last Infusion: 07/18/20 09:03 Dose: Infused Documented by: Labetalol HCl (Labetalol (Prefilled) 20 Mg/4 Ml) 10 - 20 mg IV Q10M PRN PRN PRN Reason: to Maintain BP Goals Levothyroxine Sodium (Levothyroxine 50 Mcg Tablet) 50 mcg PO DAILY@0600 [facility] Last Admin: 07/18/20 05:04 Dose: 50 mcg Documented by: Ondansetron HCl (Ondansetron 4 Mg/2 Ml Vial) 4 mg IV Q8H PRN PRN PRN Reason: NAUSEA/VOMITING Pravastatin Sodium (Pravastatin 20 Mg Tablet) 20 mg PO QHS [facility] Last Admin: 07/17/20 22:20 Dose: 20 mg Documented by: Prednisone (Prednisone 20 Mg Tablet) 40 mg PO DAILY@0800 [facility] Last Admin: 07/18/20 09:26 Dose: 40 mg Documented by: Senna/Docusate Sodium (Senna/Docusate Sodium 1 Tablet) 2 tablet PO BID PRN PRN PRN Reason: Constipation Sodium Chloride (0.9% Saline Lock 10 Ml Syringe) 10 - 40 ml IV UD PRN PRN Reason: SALINE FLUSH Last Admin: 07/17/20 22:18 Dose: 10 ml Documented by: Tamsulosin HCl (Tamsulosin Hcl 0.4 Mg Capsule) 0.4 mg PO DAILY@1730 [facility] Last Admin: 07/17/20 17:45 Dose: 0.4 mg Documented by: Zolpidem Tartrate (Zolpidem Tartrate 5 Mg Tablet) 5 mg PO QHS PRN PRN PRN Reason: INSOMNIA Discharge Diet: Low fat/ Low Cholesterol, 2000 mg Sodium Diet Discharge Activity: Return to Normal Activity Home Medications: Medications to take at Discharge Pirfenidone [Esbriet] 801 mg PO TID 07/03/16 Aspirin E.C. [Ecotrin] 81 mg PO QHS 08/25/18 Calcium Citrate/Vitamin D3 [Citracal-D3 200Mg-250 Unit Tab] 1 tab PO DAILY 08/25/18 Pravastatin Sodium [Pravachol] 20 mg PO QHS 08/25/18 Cholecalciferol (Vitamin D3) [Vitamin D3] 2,000 unit PO QHS 07/13/20 Levothyroxine Sodium 50 mcg PO DAILY 07/13/20 Prednisone 5 mg PO DAILY 07/13/20 Fluticasone 0.05% [Flonase Nasal Huntley] 2 spray NASAL DAILY nasal.sry 07/15/20 Ipratropium/Albuterol Sulfate [Duoneb] 3 ml INHALATION Q6H.RT ampul.neb 07/15/20 Senna/Docusate Sodium [Senokot-S] 2 tab PO BID PRN PRN tab 07/15/20 Tamsulosin HCl [Flomax] 0.4 mg PO DAILY@1730 cap 07/15/20 Acetaminophen [Tylenol Tablet] 650 mg PO Q6H PRN PRN tab 07/18/20 Amlodipine [Norvasc] 5 mg PO QHS tab 07/18/20 Carvedilol [Coreg (Beta Manan)] 6.25 mg PO BID tab 07/18/20 Clopidogrel Bisulfate [Plavix] 75 mg PO DAILY tab 07/18/20 Prednisone 10 mg PO DAILY #1 tab 07/18/20 levoFLOXacin tablet [Levaquin tablet] 750 mg PO DAILY #2 tab 07/18/20 Following Prescriptions Were Given to Patient: levoFLOXacin tablet [Levaquin tablet] 750 mg PO DAILY #2 tab Prednisone 10 mg PO DAILY #1 tab Primary Care Physician: Kevin Sutton MD [Primary Care Provider] - Please follow up with your Primary Care Physician in: 2 weeks Please Follow Up With: [facility] When: 2 weeks Please Follow Up With: Orlando Islas MD When: 2 weeks Medical Necessity - Tobacco Use Smoking Status: Never smoker Tobacco Use: Secondhand Meaningful Use Info Meaningful Use Diagnoses (Choose all that apply): None applicable <Adilene Veronica - Last Filed: 07/18/20 15:00> Discharge Date and Diagnosis - Primary Discharge Diagnosis Acute Problems: Active Problems Pneumonia (Acute) Sepsis (Acute) - Secondary Discharge Diagnosis Chronic Problems: Chronic Problems Hyperlipidemia (Chronic) Coronary artery disease (Chronic) Status post stents. Hypertension (Chronic) Pulmonary fibrosis (Chronic) Chronic respiratory failure (Chronic) Hospital Course and Treatment Summary of Care Provided: Patient seen by Ike Garcias PA-C under my supervision The patient is a 75 year old M with an extensive past medical history as outlined was admitted via the ED with a complaint of worsening shortness of breath for 2 weeks prior to admission. As of breath gradually became worse. Patient does use home oxygen between 4 and 10 L due to chronic pulmonary fibrosis and chronic respiratory failure. Patient had no associated chest pain, palpitations, dizziness or lightheadedness. In the ED, he was found to be febrile and tachycardic and was saturating at 99% on 6 L of oxygen. Covid test done was negative and he had mild leukocytosis. Lactic acid was normal. Chest x-ray showed increasing bilateral basilar infiltrate with confluence. He was admitted and managed for sepsis due to community-acquired pneumonia and acute COPD exacerbation. He was treated with IV Zosyn, breathing treatments with bronchodilators and IV Solu-Medrol. He subsequently became confused and there was concerns for stroke. CT of the brain done was negative for any stroke and MRI done was also negative. ABG done was normal and ammonia done was also within normal limits. Neurology was consulted and was thought that patient may have had a TIA. Patient was placed on aspirin and his mental status returned to baseline. He was noted to have A. fib on the telemetry and was placed on low- dose Coreg. Patient remained stable and was discharged to the rehab unit on 07/18/2020 with a 2-day course of Levaquin to complete a 7-day antibiotic course. He was also discharged on a prednisone taper. He is to follow-up with his primary care doctor and electronic scale subassembler as well as neurology. Patient seen and examined. He had no complaitns and felt well. Review of systems was otherwise negative. Labs and vitals reviewed. Home meds reviewed and reconciled. O/E: Vital Signs Temp Pulse Resp BP Pulse Ox 98.2 F 73 20 H 140/83 H 98 07/18/20 14:21 07/18/20 14:21 07/18/20 14:21 07/18/20 14:21 07/18/20 14:21 [] General: Alert, Oriented x3, Cooperative HEENT: Atraumatic, PERRLA, EOMI, Normocephalic Neck: Supple, No JVD, Negative Carotid Bruits Lungs: Clear to auscultation,; on 5L of oxygen by nasal canula Cardiovascular: Regular rate, No murmurs Abdomen: Bowel Sounds Present, Soft, Non Tender Extremities: No edema, Capillary Refill Less than 3 Seconds Skin: No rashes, No breakdown Musculoskeletal: No Tenderness to Palpation of Joints or Extremities Neurological: Cranial nerves II-XII grossly intact Psych/Mental Status: Normal Affect, Appropriate, Alert and oriented to time, place, person, mood and affect Plan is for discharge to rehab unit today. Rest as per Ike Garcias PA-C';s note, which I have reviewed and endorsed. - Physical Exam Vitals/I&O's: Vital Signs Temp Pulse Resp BP Pulse Ox 98.2 F 73 20 H 140/83 H 98 07/18/20 14:21 07/18/20 14:21 07/18/20 14:21 07/18/20 14:21 07/18/20 14:21 Oxygen Flow Rate (L/min) 5 Oxygen Delivery Method Nasal Cannula Weight: 177 lb 15.984 oz Body Mass Index (BMI) 23.5 Intake and Output for Last 24 Hours 07/16/20 07/17/20 07/18/20 23:59 23:59 23:59 Intake Total 750 / 750 469.38 / 469.38 720 / 720 Output Total 1150 / 1150 825 / 825 2400 / 2400 Balance -400 / -400 -355.62 / -355.62 -1680 / -1680 Microbiology Past 72 Hours 07/13/20 13:45 Blood Culture (Wb) - Left Hand Blood Culture - Final No growth in 5 days. 07/13/20 13:55 Blood Culture (Wb) - Anticubital Right Blood Culture - Final No growth in 5 days. Laboratory Results 07/18/20 05:53: Sodium 131 L, Potassium 3.9, Chloride 98, Carbon Dioxide 28.0, Anion Gap 5, BUN 19 H, Creatinine 1.08, Estim Creat Clear Calc 65.76, Est GFR (MDRD) Af Amer 85, Est GFR (MDRD) Non-Af 71, BUN/Creatinine Ratio 17.6, Glucose 96, Calcium 8.2 L Disposition: Residential facility Minutes spent on discharge:: 35 Patient Condition:: Stable Inpatient E&M: [id number] Disch Hosp
--- NOTE | 2020-07-18 14:11 | NURSING ---
REPORT CALLED TO INPATIENT REHAB.
== END | DRG 871 ==
PROVIDERS: Internal Medicine; Physician Assistant; Admitting Provider Hospitalist; Emergency Provider Emergency Medicine; PCP Family Medicine; Visit Provider Student in an Organized Health Care Education/Training Program
DX: A41.9 Sepsis, unspecified organism (principal); J18.9 Pneumonia, unspecified organism; J96.21 Acute and chronic respiratory failure with hypoxia; J44.0 Chronic obstructive pulmonary disease with (acute) lower respiratory infection; J44.1 Chronic obstructive pulmonary disease with (acute) exacerbation; E87.1 Hypo-osmolality and hyponatremia; J84.10 Pulmonary fibrosis, unspecified; I65.02 Occlusion and stenosis of left vertebral artery; I10 Essential (primary) hypertension; E78.5 Hyperlipidemia, unspecified; I25.10 Atherosclerotic heart disease of native coronary artery without angina pectoris; I27.20 Pulmonary hypertension, unspecified; I48.91 Unspecified atrial fibrillation; E03.9 Hypothyroidism, unspecified; Z95.5 Presence of coronary angioplasty implant and graft; Z79.82 Long term (current) use of aspirin; Z79.890 Hormone replacement therapy; Z99.81 Dependence on supplemental oxygen; Z79.899 Other long term (current) drug therapy; Z77.22 Contact with and (suspected) exposure to environmental tobacco smoke (acute) (chronic)
CPT/HCPCS: 36415; 36600; 70450; 70496; 70498; 70551; 71045; 80048; 80053; 80061; 82140; 82803; 82962; 83605; 85025; 87040; 87633; 87635; 92610; 93005; 93306; 94640; 94667; 94668; 94760; 94762; 95819; 97110; 97116; 97162; 97166; 97530; 97535; 97802; 99251; 99283; 99285; J7030; Q9967; A4216; G0463; U0003

== ENCOUNTER 2020-07-18 14:55 | Inpatient (IN) | payer MEDICARE, BC, SELFPAY ==
[2020-07-13 18:35] VITALS: BMI 23.5
[2020-07-18] VITALS (7 sets, daily range): BP systolic 144–154; BP diastolic 84–86; PULSE 78–84; RESP 20–26; TEMP 36.5–36.6; O2SAT 80–99; BMI 23.4; BMI 23.5
--- NOTE | 2020-07-18 17:13 | PCM.HP.STD ---
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 (10) Hyperlipidemia Status: Chronic (11) Hypertension Status: Chronic (12) Pulmonary fibrosis Status: Chronic Comment: follows up with Dr. Kirti Miguel at [facility] History of Present Illness Date of Admission: 07/18/20 Chief Complaint: Debility secondary to recent pneumonia/sepsis/acute on chronic respiratory failure. The patient is a 75 year old M with a past medical history of hyperlipidemia, coronary artery disease with history of PTCA/KIMMY, hypertension, pulmonary fibrosis, hypothyroidism, chronic steroid dependence with 5 mg of prednisone daily and chronic hypoxic respiratory failure who presented to the emergency department at [facility] on 07/13/2020 complaining of increased shortness of breath associated with a dry cough and increased oxygen requirement which had gradually progressed over the preceding 2 weeks. He was diagnosed with pulmonary fibrosis in 2013 and wears 6 to 10 L of oxygen at home. Chest x-ray in the emergency department was reported as increased interstitial markings throughout with a confluence in the left base possibly secondary to pneumonia. Pulse ox was 99% on 6 L. The white blood cell count was elevated at 11.2 with a left shift. Temp was 99.5 and the heart rate was 109 in the emergency department. Lactic acid was 1.2. He was diagnosed with sepsis secondary to pneumonia and admitted to the hospital. He was started on intravenous Zosyn and sputum culture and blood cultures were ordered. Sputum was never obtained and the blood cultures had no growth. Respiratory panel was negative. In addition to Zosyn he received intravenous Solu-Medrol, inhaled bronchodilators and was prescribed incentive spirometry. While in the hospital on 07/17/2020 he had altered mental status and a stroke alert was called. He was aphasic and confused. Stat CT was negative for hemorrhagic or ischemic infarction. SOC was consulted and since the patient was outside the 4.5-hour window for TPA it was not given. He has improved significantly and is no longer aphasic at presentation to the rehab unit. 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 MRI was negative for infarction. He is currently on aspirin, Plavix and pravastatin 20 mg p.o. nightly. He was transferred to the acute inpatient rehab unit for 3 hours of therapy daily to restore him at or near his prior level of function. He lives by himself and has 1 step to enter his home. He has a 1 floor home. His brother Adi is his power of document review attorney. Past Medical History Past Medical History (Chronic Problems): Chronic Problems Mild aortic stenosis (Chronic) Moderate pulmonary arterial systolic hypertension (Chronic) PA systolic recently estimated at 50 Anxiety (Chronic) Hypothyroidism (Chronic) Hyperlipidemia (Chronic) Coronary artery disease (Chronic) Status post stents. Hypertension (Chronic) Pulmonary fibrosis (Chronic) follows up with Dr. Kirti Miguel at [facility] Chronic respiratory failure (Chronic) Allergies No Known Allergies Allergy (Verified 08/25/18 09:36) Home Medications: Ambulatory Orders Medication Instructions Recorded Pirfenidone [Esbriet] 801 mg PO TID 07/03/16 Aspirin E.C. [Ecotrin] 81 mg PO QHS 08/25/18 Calcium Citrate/Vitamin D3 1 tab PO DAILY 08/25/18 [Citracal-D3 200Mg-250 Unit Tab] Pravastatin Sodium [Pravachol] 20 mg PO QHS 08/25/18 Cholecalciferol (Vitamin D3) 2,000 unit PO QHS 07/13/20 [Vitamin D3] Levothyroxine Sodium 50 mcg PO DAILY 07/13/20 Prednisone 5 mg PO DAILY 07/13/20 Senna/Docusate Sodium [Senokot-S] 2 tab PO BID PRN PRN tab 07/15/20 Acetaminophen [Tylenol Tablet] 650 mg PO Q6H PRN PRN tab 07/18/20 Amlodipine [Norvasc] 5 mg PO QHS 07/18/20 Carvedilol [Coreg (Beta Manan)] 6.25 mg PO BID 07/18/20 Clopidogrel Bisulfate [Plavix] 75 mg PO DAILY 07/18/20 Fluticasone 0.05% [Flonase Nasal 2 spray NASAL DAILY 07/18/20 Brenham] Ipratropium/Albuterol Sulfate 3 ml INHALATION Q6H.RT 07/18/20 [Duoneb] Prednisone 10 mg PO DAILY 07/18/20 Tamsulosin HCl [Flomax] 0.4 mg PO DAILY@1730 07/18/20 levoFLOXacin tablet [Levaquin 750 mg PO DAILY 07/18/20 tablet] Surgical History: herniorrhaphy Psychiatric History: No pertinent psych hx - he has never been treated for anxiety or depression but, he admits to being anxious, kristie when he feels he is not breathing well., - - he has no children amd he is not . His brother Adi is his POA Lives: Alone Smoking Status: Never smoker Tobacco Use: Non-smoker Alcohol: None Drugs: None - *Family History Maternal History Items: Pulmonary Disease - Jet tells me that his mother and his sister had pulmonary fibrosis. Paternal History Items: No pertinent history Sibling History Items: Pulmonary Disease - He had a sister with pulmonary fibrosis. Review of Systems Constitutional: Reports: Anorexia, Weakness. Denies: Chills, Fever, Weight Change Eyes: Denies: Vision Change HEENT: Reports: Difficulty Swallowing - occasional difficulty swallowing and he associates this with a dry mouth.. Denies: Head Aches, Nasal Congestion, Sinus Congestion, Sinus Drainage, Sore Throat Cardiovascular: Reports: Chest Tightness - when he gets upset and anxious, Light Headedness - when he stands up. Denies: Chest Pain, Edema, Palpitations, Syncope Respiratory: Reports: Cough - dry and nit is much better than it was at admission. Denies: Shortness of breath at rest, Sputum production Gastrointestinal: Denies: Abdominal Pain, Constipation, Diarrhea, Nausea, Vomiting Genitourinary: Reports: Incontinence - occasional......this is new - he did not have this at home, Nocturia - 2-3 times a night...started on Flomax in the hospital for urine retention, Retention. Denies: Dysuria Musculoskeletal: Denies: Joint Pain, Joint Tenderness, Neck Pain Skin: Reports: Dryness. Denies: Jaundice, Rash, Wounds Neurological: Reports: - - he had aphasia in the hospital and aphasia both receptive and expressive that lasted < 24H. Denies: Focal weakness, Headaches, Numbness, Tingling, Seizures Psychiatric: Denies: Anxiety, Depression, Homicidal Ideations, Suicidal Ideations Endocrine: Denies: Change in Body Habitus, Polydipsia Hematologic/ Lymphatic: Denies: Easy Bruising, Easy Bleeding, Hx of blood clot VTE Information - Inpt Only VTE Present on Admission: No VTE Mechan Device Prophylaxis: Knee High DEEPAK Hose VTE Pharm Prophylaxis ordered?: Yes - Physical Exam Vitals/I&O's: Vital Signs Temp Pulse Resp BP Pulse Ox 97.7 F L 78 20 H 144/84 H 97 07/18/20 15:24 07/18/20 15:24 07/18/20 15:24 07/18/20 15:24 07/18/20 16:11 Oxygen Flow Rate (L/min) 5 Oxygen Delivery Method Nasal Cannula Weight: 177 lb 14.609 oz Body Mass Index (BMI) 23.4 General: Alert, Oriented x3, Cooperative, - - he has having occasional pursed lip breathing HEENT: Atraumatic, PERRLA, EOMI, - - No cervical or submandibular adenopathy Oral: Dry Mucosa Neck: Supple, Negative Carotid Bruits, No Nodes, No Nuchal Rigidity, Trachea Midline Lungs: No rhonchi, No wheeze, Rales - coarse BL worse in the bases, - - Occasional pursed lip breathing and tachypnea at rest.......he tells me he is very fatigued and this is making him more SOB Cardiovascular: Regular rate, Regular Rhythm, Normal S1, Normal S2, No murmurs - No murmurs were appreciated however the heart sounds are distant., No rub noted, No Gallop, - - Heart sounds are distant-likely secondary to chronic pulmonary disease Abdomen: Bowel Sounds Present, Soft, Non Tender, Non-Distended Extremities: No cyanosis, No edema, No Calf Tenderness, Clubbing, - - Radial pulses are 3/3 bilaterally. Both feet were warm with intact sensation. Will evaluate pulses when he is in bed in the AM. Skin: No rashes, No breakdown Neurological: Cranial nerves II-XII grossly intact, Neuro grossly intact Psych/Mental Status: Appropriate, Anxious Current Medications Acetaminophen (Acetaminophen 325 Mg Tablet) 650 mg PO Q6H PRN PRN PRN Reason: HEADACHE Albuterol/Ipratropium (Ipratropium/Albuterol Sulfate 3 Ml Ampul.Neb) 3 ml INHALATION Q6H.RT CHAD Amlodipine Besylate (Amlodipine 5 Mg Tablet) 5 mg PO QHS [facility] Aspirin (Aspirin E.C. 81 Mg Tablet) 81 mg PO QHS [facility] Bisacodyl (Bisacodyl 10 Mg Suppository) 10 mg RECTAL .PRN X 1 PRN PRN Reason: Constipation Calcium/Vitamin D (Calcium Carb/Vitamin D 1 Tablet Tablet) [facility] Carvedilol (Carvedilol 6.25 Mg Tablet) 6.25 mg PO BID [facility] Cholecalciferol (Cholecalciferol (Vit D3) 1,000 Unit (25mcg)) 2,000 unit PO QHS [facility] Clopidogrel Bisulfate (Clopidogrel Bisulfate 75 Mg Tablet) 75 mg PO DAILY [facility] Fluticasone Propionate (Fluticasone 0.05% 1 Brenham Nasal.Sry) 2 spray NASAL DAILY [facility] Levofloxacin (Levofloxacin 750 Mg Tablet) 750 mg PO DAILY [facility] Stop: 07/20/20 10:01 Levothyroxine Sodium (Levothyroxine 50 Mcg Tablet) 50 mcg PO DAILY@0600 [facility] Magnesium Hydroxide (Magnesium Hydroxide 30 Ml Udc) 30 ml PO .PRN X 1 PRN PRN Reason: Constipation Pravastatin Sodium (Pravastatin 20 Mg Tablet) 20 mg PO QHS [facility] Prednisone (Prednisone 20 Mg Tablet) 40 mg PO DAILY@0800 [facility] Stop: 07/20/20 08:01 Prednisone (Prednisone 20 Mg Tablet) 30 mg PO DAILY@0800 [facility] Stop: 07/23/20 08:01 Prednisone (Prednisone 20 Mg Tablet) 20 mg PO DAILY@0800 [facility] Stop: 07/26/20 08:01 Prednisone (Prednisone 10 Mg Tablet) 10 mg PO DAILY@0800 [facility] Stop: 07/29/20 08:01 Prednisone (Prednisone 5 Mg Tablet) 5 mg PO DAILY@0800 [facility] Senna/Docusate Sodium (Senna/Docusate Sodium 1 Tablet) 2 tablet PO BID [facility] Sodium Chloride (Sodium Chloride 0.65% 1 Brenham Brenham.Btl) 1 spray NASAL TID PRN PRN PRN Reason: NASAL DRYNESS Tamsulosin HCl (Tamsulosin Hcl 0.4 Mg Capsule) 0.4 mg PO DAILY@1730 [facility] Assessment/Plan All Active Problems Pneumonia (Acute) Sepsis (Resolved) Hyponatremia (Acute) Impressions 1. Debility secondary to recent sepsis secondary to pneumonia 2. Resolving pneumonia 3. Chronic hypoxic respiratory failure secondary to pulmonary fibrosis with increased oxygen requirement at admission to the hospital -currently stable on a 4 L nasal cannula with a pulse ox of 98%. 4. Hyponatremia-etiology? 5. Drug-induced hyperglycemia secondary to high-dose steroids 6. Pulmonary fibrosis diagnosed in 2013-follows with Dr. Kirti Miguel at the [facility] 7. Moderate pulmonary hypertension with recent echocardiogram reporting a right ventricular systolic pressure estimated at 50 8. Mild aortic stenosis 9. Coronary artery disease with history of stents 10. Dyslipidemia 11. Hypothyroidism 12. Hypertension 13. BPH with urine retention-started on Flomax during his acute hospital stay PLAN PT for gait stability OT for ADL's ST for evaluation and tx of cognitive dysfunction Analgesics as needed Bowel protocol Fall precautions Assess for Anxiety/Depression GI prophylaxis not indicated at this time. He has no history of peptic ulcer disease and currently denies epigastric discomfort or nausea. His appetite has been decreased because he does not like the hospital food. DVT prophylaxis with Lovenox 40 mg subcu daily and DEEPAK dahl Follow up with her Lesley and Dr. Miguel following DC from IP Rehab AM lab including Mag, Phos, TSH, T4 Hemoccult stool since he is on clopidogrel, ASA and Lovenox Continue incentive spirometry Obtain records from Dr. Miguel and Dr. Sutton. Start BuSpar 5 mg p.o. twice daily for anxiety Start melatonin 3 mg p.o. nightly for insomnia If the TSH and T4 are normal will obtain a urine sodium and urine spot creatinine to calculate the fractional excretion of sodium. Consult the dietitian to discuss food preferences and cardiac diet. CODE STATUS: Discussed code status at length with Jet and his brother Adi including the difference between FULL CODE, DNR CCA and DNR CC status. All questions were answered. An order for DNR CCA with no intubation was entered into the computer. A total of 20 minutes face to face time was devoted to advanced care planning. We also discussed palliative care and he would like to meet with palliative care while he is in the rehab unit. Inpatient E&M: 78170 Init Hosp L3
[2020-07-18] MEDS: Tamsulosin HCl 0.4 MG Capsule PO (17:17)
--- NOTE | 2020-07-18 17:53 | REHABEVAL_ITS ---
Admission Information Primary Diagnosis:: Debility secondary to recent sepsis due to pneumonia in a patient with chronic hypoxic respiratory failure due to pulmonary fibrosis diagnosed in 2014. Status Changes from Prescreening?: No changes Identified Actual Problem List:: Infection, Cognitve Impr/Memory Loss, Bladder Incontinence, Alteration in Sleep, Alteration in Nutrition, Mobility Impaired, Self Care Deficit, BP, Hypertension, Alteration/ Air Exchange, Alteration- Leisure Activ. Potential Problem List:: DVT, Bleeding, Infection, UTI, Aspiration, Falls, Skin Integrity, Depression Risk of Complications DVT: LMWH, DEEPAK Hose Bleeding: Monitor Lab Values, Nursing to Teach Precautions for anti-coagulation therapy., Wound, if applicable, to be assessed every shift., Stroke patients assessed for lethargy or change in status. Infection: Clinical Staff to Monitor for S/S of infection:, S/S of infection include fever, redness, warmth, etc. Urinary Tract Infection: Monitor for frequency, burning, discomfort, or incontinence., Nursing will obtain urine sample for urinalysis and C&S when ordered. Aspiration: Clinical staff will monitor for coughing, drooling, congestion., Speech will evaluate swallowing and dsyphasia., Nursing will monitor patient swallowing during meals. Falls: Patient will be evaluated for Fall Precautions, Patient will be placed on Fall Precautions as indicated per protocol. Skin Breakdown: Nursing will assess skin daily using assessment tool., Nursing will place on Skin Breakdown Precautions as indicated. Pain: Clinical staff will assess patient's pain level per protocol., Medications will be given, if needed, and the pain level reassessed., Other methods: Massage, distraction, decrease stimulus, etc. used PRN. Plan of Care Patient requires physician specializing in physical medicine and rehab oversight to provide close medical supervision of rehab issues including: Pain Management, Sleep Problems, Bowel and Bladder, Medical and co-morbidity Management, DVT prophylaxis, Rehabilitation Leadership, Coordination of treatment team Patient needs Physical Therapy: For a minimum of 1 hour, At least 5 out of 7 days Patient needs Physical Therapy to improve:: Mobility, Mobility, Mobility, Strengthening, Transfers, Stretching, ROM, Endurance, Stairs, Gait, Balance Patient needs Occupational Therapy: For a minimum of 1 hour, At least 5 out of 7 days Patient needs Occupational Therapy to improve ADL's incl.: Eating, Grooming, Bathing, Dressing, Toileting, Toilet transfers, Community Reintegration, Higher functioning activities, Household tasks, Adaptive Equipment, Splinting, Other activities as determined Patient requires speech therapy: For a minimum of 1 hour, At least 5 out of 7 days Patient requires speech therapy for: Cognition, Language Skills, Compensatory Strategies Patient requires 24/ Rehabilitation Nursing for: Pain Issues, Identifying and preventing risk factors, Monitoring and reporting current medical conditions, Assisting with ambulation, transfer, and all ADL's, Teaching patients about disease process and medications, Family teaching, Providing safe environment, Bowel and Bladder Issues, Skin integrity, Medication Management Patient needs Resident Care Aid/ Case Management for: Discharge Planning, Arranging Home Equipment or Services, Family Interventions Patient needs Dietary and Nutrition Services for: Adequate Nutrition, Nutritional Supplements, Nutritional Education Goals Patient will remain: free from falls, or injury at time of discharge. Patient will perform bed mobility at: MOD I level of assist. Patient will complete transfers from bed to chair at: MOD I level of assist. Patient will ambulate: with MOD I assist, with LRD, - - 300 feet with least restrictive device Patient will propel wheelchair: - - Not applicable Patient will complete upper body dressing at: MOD I level of assist. Patient will complete lower body dressing at: MOD I level of assist. Patient will complete toileting at: MOD I level of assist. Patient will perform bathing at: MOD I level of assist. Patient will complete grooming at: MOD I level of assist. Patient will complete home management skills at: MOD I level of assist. Patient will achieve: at MOD I assist, - - 1 platform step Patient will have pain level of: of 3 or less Patient's skin will: remain intact, free from infection. Patient will receive: adequate nutrition. Discharge Planning Pt Prognosis for Sig. Practical Improv. w/in Reasonable Time: Good Anticipated D/C Destination: Home Was Preadmission Assessment Accurate?: Yes
[2020-07-18] MEDS: Ipratropium/Albuterol Sulfate 3 ML AMPUL.NEB INHALATION (19:01)
[2020-07-18] MEDS: Pravastatin 20 MG Tablet PO (20:46)
[2020-07-18] MEDS: Senna/Docusate Sodium 1 Tablet 2 TABLET PO (20:47)
[2020-07-18] MEDS: busPIRone 5 MG Tablet PO (20:47)
[2020-07-18] MEDS: Carvedilol 6.25 MG Tablet PO (20:47)
[2020-07-18] MEDS: amLODIPine 5 MG Tablet PO (20:47)
[2020-07-18] MEDS: MELATONIN 3 MG TABLET PO (20:47)
[2020-07-18] MEDS: Aspirin E.C. 81 MG Tablet PO (21:01)
[2020-07-19 00:51] VITALS: PULSE 71; RESP 24
[2020-07-19] MEDS: Ipratropium/Albuterol Sulfate 3 ML AMPUL.NEB INHALATION ×2 (00:51→07:10)
[2020-07-19 01:32] VITALS: O2SAT 100
--- NOTE | 2020-07-19 05:28 | NURSING ---
staff in room repeatedly throughout the night and multiple times per hour. Pt may set off alarms, use call light, & found to deny needs at times. Pt picking at nose, irritating nostrils, and causing bleeding. Pt continues to blame it on the Plavix. Bedding has been changed x3 d/t messy hands despite trying to get pt to stop picking. Pt is extremely fidgety and has not slept at all tonight. A great amount of time has been spent attending to needs, ensuring his safety as he has removed all clothing which makes it difficult to attach PA. 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
[2020-07-19] MEDS: Levothyroxine 50 MCG Tablet PO (06:06)
[2020-07-19] MEDS: Enoxaparin 40 MG/0.4 ML Syringe SC (06:06)
[2020-07-19 06:08] VITALS: BP 127/76; BP 149/118; BP 154/92; PULSE 101; PULSE 109; PULSE 83
[2020-07-19 07:10] VITALS: PULSE 92; RESP 18; O2SAT 97
[2020-07-19] MEDS: predniSONE 20 MG Tablet 40 MG PO (08:11)
[2020-07-19] MEDS: Calcium Carb/Vitamin D 1 TABLET Tablet PO (08:11)
[2020-07-19] MEDS: Carvedilol 6.25 MG Tablet PO ×2 (08:12→21:08)
[2020-07-19] MEDS: Fluticasone 0.05% 1 SPRAY NASAL.SRY 2 SPRAY NASAL (08:12)
[2020-07-19] MEDS: busPIRone 5 MG Tablet PO (08:12)
[2020-07-19] MEDS: levoFLOXacin 750 MG Tablet PO (08:14)
[2020-07-19] MEDS: Sodium Chloride 0.65% 1 SPRAY SPRAY.BTL NASAL ×2 (08:20→21:07)
[2020-07-19 08:56] LABS: Magnesium 2.3 mg/dL (1.6-2.6); Phosphorus 2.6 mg/dL (2.5-4.9); T4 Free Direct 1.01 ng/dL (0.76-1.46); Thyroid Stim Hormone (TSH) 3.66 uIU/mL (0.358-3.74)
[2020-07-19 09:47] VITALS: BP 154/92; PULSE 83; RESP 20; TEMP 36.6; O2SAT 96
[2020-07-19] MEDS: clonazePAM 0.5 MG Tablet PO ×2 (10:11→21:11)
--- NOTE | 2020-07-19 10:46 | CASEMGMT ---
Social Work Met with patient for initial assessment. Discussed code status options at length. Pt confirmed DNR-CCA, no intubation, and that his brother id HCPOA and knows his wishes. Pt expressed having anxiety, no depression. Discussed triggers for anxiety. Pt explains having urinary issues - he does have retention He explains he knows he has void, but cannot. Pt admits he fixates on that. Validated pt's feelings. Explained nursing and aware and have interventions in place for improvement. Pt hopeful with change in anxiety med from that will assist. SW offered to assist when feeling anxious ever, as well as nursing. Pt appreciative. Explained Medicare benefit. Pt confused with RU vs SNF Medicare benefit. Pt expressed understanding. Explained Team meeting and encouraged brother to attend. Pt stated he would be. Pt does have ST memory impairment. ST consulted. Pt having difficulty remembering conversation to conversation. Will continue to follow. Carmelina Hidalgo, DIRECTOR MARKET INTELLIGENCE QUALIFIED CRAFT WORKER ELECTRICIAN
--- NOTE | 2020-07-19 11:32 | NURSING ---
epistaxis continues throughout the morning with multiple interventions attempted. manual pressure, clamp, and ice. Dr. Roth notified and Ike Garcias paged to come see patient.
[2020-07-19] MEDS: Phenylephrine 0.25% 15 ML NASAL.SRY 2 SPRAY NASAL (11:56)
[2020-07-19] MEDS: Ondansetron ODT 4 MG Tablet PO (13:16)
[2020-07-19] MEDS: Silver Nitrate (BKC) 1 EACH TOPICAL (13:16)
--- NOTE | 2020-07-19 13:28 | CPS ---
AEROSAL HELD DUE TO PATIENT NOSEBLEED AT 13:28
--- NOTE | 2020-07-19 15:03 | PCM.PN.BLA ---
Progress Note Afebrile BP is a little elevated due to anxiety. Did not sleep well last night. He was taking clothes off and taking the oxygen off and ringing the call light fairly continuously. He only remembers taking his shirt off. This morning he had epistaxis. It would stop intermittently with pinching it shut but, then would start bleeding again. Afrin was ordered. It continued to bleed. He has been on high flow oxygen while in the hospital and is on Plavix and ASA and Lovenox for DVT prophylaxis. He has blowing his nose frequently despite being told not to. 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 Platelets on 07/17 were WNL. I examined his nose using nasal calipers and it is the left side that is bleeding. There was a very large soft clot posteriorly on the Left side. He had blood in the posterior pharynx on the left side. Blood was oozing around the clot. Using some nasal saline and a long Q tip I was able to remove enough of the clot to see 2 areas of bright red bleeding. The areas were cauterized using silver nitrate. He tolerated this well. There was no further oozing anteriorly. He coughed up a large mouthful of old blood. the posterior pharynx was re-examined and there was only a small amount of old dark blood present in the left posterior pharynx. He denied any post nasal drip. He had no further cough. He had mild nausea and was ordered Zofran. He was placed on a venti mask and instructed not to touch his nose. There was no further bleeding at 1 hour and he was allowed to eat and then placed back on the venti mask. I re-examined after another hour and there was no bleeding. I encouraged him to leave the venti mask on for the next 12 hours unless eating or drinking. Impressions 1. epistaxis - controlled with silver nitrate sticks and Afrin. Will continue the Afrin every 6 hours for 8 doses. Nasal saline TID. check CBC, PT, PTT, BMP, mag and phos in the AM. Venti mask except when eating or drinking until I can re-examine in the AM. Hold Flonase for the next day. 2. Anxiety - started on Klonopin 0.5 mg Q 12H. He is much calmer. Pulse ox is good. I am hopeful the anxiety will improve somewhat as the prednisone is tapered. 3. owning? Got confused last evening. PRN Haldol ordered. Inpatient E&M: 38751 Subs Hosp L2
--- NOTE | 2020-07-19 16:07 | CHAPLAIN ---
Type of Pastoral Visit _x__ Initial Visit ___ Follow-up Visit ___ On-call Visit ___ General Patient Visit ___ Spiritual Assessment ___ Family Conference ___ Bereavement ___ Rapid Response ___ Code Blue ___ Other (describe below) Pastoral Care Referral From _x__ Patient ___ Family ___ Nurse ___ Physician ___ Procurement Forester ___ Hadoop Analyst ___ Other (describe below) Sacrament/Intervention _x__ Active listening ___ Anointing ___ Mosque ___ Bereavement ___ Communion ___ Rosaura exploration ___ _x__ Life review ___ Prayer ___ Reconciliation ___ Sacrament of Sick _x__ Supportive presence ___ Wedding ___ Other (describe below) Pastoral Comments introduction of self and role to patient; pt gives some brief life review and his perspective on his illness; pt has a brother and niece for support; [place] [facility] [place] and came to [place] to be near family; no yazidism or rosaura group
[2020-07-19] MEDS: Oxymetazoline 0.05% 1 SPRAY SPRAY.BTL 2 SPRAY NASAL (18:10)
[2020-07-19] MEDS: Tamsulosin HCl 0.4 MG Capsule PO (18:10)
[2020-07-19] MEDS: Mixture 30 ML Bottle TOPICAL (18:29)
--- NOTE | 2020-07-19 18:54 | CPS ---
aero tx not given at 1900 -pt has a bloody nose -nurse aware
[2020-07-19] MEDS: Senna/Docusate Sodium 1 Tablet 2 TABLET PO (21:08)
[2020-07-19] MEDS: amLODIPine 5 MG Tablet PO (21:08)
[2020-07-19] MEDS: Carbamide Peroxide 15 ML Bottle 5 DRP OTIC (21:08)
[2020-07-19] MEDS: Pravastatin 20 MG Tablet PO (21:08)
[2020-07-19 22:00] VITALS: BP 146/71; PULSE 84; RESP 20; TEMP 36.5; O2SAT 99
[2020-07-20] MEDS: Oxymetazoline 0.05% 1 SPRAY SPRAY.BTL 2 SPRAY NASAL ×4 (00:28→17:14)
[2020-07-20] MEDS: Levothyroxine 50 MCG Tablet PO (05:23)
[2020-07-20] MEDS: Sodium Chloride 0.65% 1 SPRAY SPRAY.BTL NASAL ×3 (05:23→20:50)
[2020-07-20 05:30] VITALS: BP 118/58; BP 132/74; BP 150/75; PULSE 68; PULSE 87; PULSE 98
[2020-07-20 05:47] LABS: Hematocrit 38.6 % (40-54); Hemoglobin 13.3 g/dL (13.0-16.5); Mean Corp Hgb Conc 34.5 g/dL (32-36); Mean Platelet Vol. 9.3 fl (6.2-12.0); Platelet Count 368 K/mm3 (150-450); RBC Distribution Width CV 12.2 % (11.6-14.6); RBC Distribution Width SD 41.2 fl (35.1-43.9); Red Blood Count 4.15 M/mm3 (4.6-6.2); White Blood Count 14.4 K/mm3 (4.4-11.0)
[2020-07-20 05:55] LABS: International Normalized Ratio 1.1; Prothrombin Time (Protime)PT. 13.2 SECONDS (11.7-14.9)
[2020-07-20 05:56] LABS: Partial Thromboplast Time 24.5 Seconds (24.1-36.2)
[2020-07-20 06:16] LABS: Anion Gap 6 (5-15); BUN 25 mg/dL (7-18); BUN/Creat Ratio 24.5 RATIO (10-20); Calcium,Total 8.5 mg/dL (8.5-10.1); Chloride 93 mmol/L (98-107); Creatinine, Serum 1.02 mg/dL (0.70-1.30); EST Glomerular Filtration Rate 75 mL/min (>60); Est Glom Filt Rate - Afr Amer 91 mL/min (>60); Estimated Creatinine Clearance 69.63 ml/min; Glucose 93 mg/dL (74-106); Magnesium 2.2 mg/dL (1.6-2.6); Phosphorus 2.9 mg/dL (2.5-4.9); Potassium 3.7 mmol/L (3.5-5.1); Sodium Level 129 mmol/L (136-145)
[2020-07-20 06:45] VITALS: PULSE 95; RESP 19; O2SAT 95
[2020-07-20] MEDS: Senna/Docusate Sodium 1 Tablet 2 TABLET PO ×2 (07:31→20:06)
[2020-07-20] MEDS: clonazePAM 0.5 MG Tablet PO (07:31)
[2020-07-20] MEDS: Carbamide Peroxide 15 ML Bottle 5 DRP OTIC ×2 (07:31→20:49)
[2020-07-20] MEDS: Carvedilol 6.25 MG Tablet PO ×2 (07:32→20:06)
[2020-07-20] MEDS: levoFLOXacin 750 MG Tablet PO (07:32)
[2020-07-20] MEDS: Calcium Carb/Vitamin D 1 TABLET Tablet PO (07:32)
[2020-07-20] MEDS: predniSONE 20 MG Tablet 40 MG PO (07:32)
--- NOTE | 2020-07-20 08:04 | PCM.PN.BLA ---
Progress Note Levaquin will conclude today - for tx of PNA Afebrile Orthostatic vital signs are positive today. The heart rate went from 68 lying down to 98 standing and the blood pressure went from 150/75 TO 118/58. He is 95 to 99% saturated on a 6 L Ventimask. Oral intake is fair. Post void residuals are unremarkable. He experienced sundowning again last night and was awake a good deal last night. Lynne cifuentes controlled the bleeding but, pt picking his nose and confused. Removed all clothes and his attends. He is incontinent of stool. He was not given Haldol. Medication list was reviewed. All lab was personally reviewed. The white blood cell count remains elevated at 14.4 today. This is likely due to prednisone. Hemoglobin is stable at 13.3 and platelets are within normal limits. PT and PTT are also normal. Sodium is low at 129 with a chloride of 93. The BUN is 25 with a creatinine of 1.02. Calcium is 8.5. Phosphorus and magnesium are normal. He fell asleep while I was talking with him today. He had just finished with the OT and she related that he did well today and was able to follow directions. He was tachypneic at the conclusion of OT. He laid down in bed and fell right asleep. He is wearing the venti mask and not complaining. His nose did not bleed during OT. sleepy, nodded off while I was talking with him. He was appropriate with the therapist today. He was tachypneic standing at the bedside after ambulating. After he laid down the tachypnea resolved almost immediately. Lungs - Increased crackles in the R base today and also with aegophony that was not there previously. No wheezes and no rhonchi. There are a few crackles in the Left base - unchanged from admission to the rehab unit. H - RRR, no gallop abd - soft and NT no peripheral edema Impressions 1. acute delirium - multifactorial and due to the combined effects of Levaquin, high dose steroids, hyponatremia, dehydration, PNA, sleep deprivation, recent CVA and age. MRI did not show CVA but, he has persistent cognitive deficits even though most of the aphasia resolved 2. hyponatremia - suspect pre-renal. 3. increased crackles and aegophony in the R base today - could have aspirated blood. 4. post stroke debility 5. pulmonary fibrosis - no pulmonary consult in the hospital. ? the need for high dose steroids...he was not wheezing at admission to the hospital and has not wheezed since admission to rehab 6. epistaxis - controlled at the present time DC benzo's Continue low-dose Haldol 3 times daily as needed severe agitation Try low dose Seroquel tonight at 8 PM to see if he will be able to sleep.....he get very restless at night and he has not been sleeping urine sodium and creat PA and lat CXR Consult pulmonary - ? need for steroids at this time.....he is not wheezing and they are contributing to delirium and sleep deprivation Review CXR when available and talk to Jet when he is more awake. STROKE Vital Signs/Narrative: Vital Signs Pulse Pulse Pulse Pulse Resp BP BP 07/20/20 06:45 95 19 H 07/20/20 05:30 68 87 98 150/75 H 132/74 H BP Pulse Ox 07/20/20 06:45 95 07/20/20 05:30 118/58 L Inpatient E&M: 14131 Subs Hosp L2
--- NOTE | 2020-07-20 09:20 | RAD_ITS ---
STUDY: X-RAY CHEST REASON FOR EXAM: Male, 75 years old. PNEUMONIA TECHNIQUE: Single AP portable view of the chest. COMPARISON: Comparison is made with prior study dated 07/13/2020. FINDINGS: Since prior study, there has been improved aeration although there is residual increased interstitial markings at the lung bases with areas of confluence suggestive of a persistent interstitial pulmonary fibrosis in the lower lobes. There is no demonstrated pleural abnormality. Normal size heart. Normal mediastinum and andrea. Normal visualized pulmonary arteries. Normal visualized aortic arch and descending thoracic aorta. There are diffuse degenerative changes of the visualized thoracic spine. Normal visualized ribs, clavicles, and shoulders. Hiatal hernia. RAD/Chest PA and Lateral IMPRESSION: Improved aeration although there is evidence of a scarring at the lung bases with areas of confluence. Electronically Signed: Michael Scherer, at 13:04 EDT , Service support ,
[2020-07-20 09:34] VITALS: BP 150/75; PULSE 68; RESP 20; TEMP 37.7; O2SAT 97
[2020-07-20 10:00] VITALS: PULSE 68; RESP 20; O2SAT 97
[2020-07-20] MEDS: 0.9% Saline Lock 10 ML Syringe IV (10:23)
[2020-07-20] MEDS: 0.9% Normal Saline 1,000 ML 75 ML IV ×2 (10:58→23:50)
[2020-07-20] MEDS: Tamsulosin HCl 0.4 MG Capsule PO (17:14)
[2020-07-20 17:37] LABS: Bacteria 0 SEEN /hpf (None Seen); Mucous, Urine 0 SEEN /hpf (<or=2+); Red Blood Cells-Urine 0 SEEN /hpf (0-5); Squamous Epithelial Cells - UA 0 SEEN /hpf (0-5); White Blood Cells 0 SEEN /hpf (0-5)
[2020-07-20 17:50] LABS: Color, Urine Yellow (Yellow); Glucose, Dipstick Normal (Normal); Ketone-Dipstick Negative (Negative); Leukocyte Esterase-Dipstick Negative /ul (Negative); Nitrite-Dipstick Negative (Negative); Occult Blood-Urine Negative /ul (Negative); Protein-Dipstick 15 mg/dl (Negative); Specific Gravity, Urine 1.015 (1.002-1.030); Urine Bilirubin Dipstick Negative (Negative); Urine Clarity Clear (Clear); Urine Urobilinogen Normal (Normal)
[2020-07-20 17:58] LABS: Urine Sodium 73 mmol/L (Not Establ.)
[2020-07-20 19:35] VITALS: O2SAT 97
[2020-07-20] MEDS: QUEtiapine 25 MG Tablet 12.5 MG PO (20:08)
[2020-07-20] MEDS: Pravastatin 20 MG Tablet PO (20:10)
[2020-07-20 20:40] VITALS: BP 146/59; PULSE 67; RESP 16; TEMP 35.5; O2SAT 96
--- NOTE | 2020-07-20 22:34 | NURSING ---
pt cooperative staff and took hs medications and clinical findings completed . up to the bsc with 2 assists, pt voided 400cc of clear yellow urine pt cleansed for smearing of stool then returned to bed. pt positioned for comfort. pt dozes off periodically then awakes. pt is restless in the bed and removing blankets and attends. sitter in room for safety
[2020-07-21] MEDS: Oxymetazoline 0.05% 1 SPRAY SPRAY.BTL 2 SPRAY NASAL ×3 (00:09→12:25)
--- NOTE | 2020-07-21 00:45 | NURSING ---
PT RESTLESS AND AGITATED. UNABLE TO GET PT TO CALM DOWN WITH DISTRACTION, REPOSITIONING, OR TALKING WITH PT. PT PULLS CLOTHING OFF AND DOES NOT TOLERATE WEARING ANYTHING. PT DOES NOT WANT ANYTHING TO DRINK. CONTINUALLY TOUCHES AND REPOSITIONS VENTURI MASK. MEDICATED WITH HALDOL FOR AGITATION. SITTER AT BEDSIDE. PT IS ORIENTED TO PERSON AND PLACE. LUNG SOUNDS ARE WITH COARSE CRACKLES BILAT POSTERIORLY. PT VOIDS 600ML OF CLEAR, PALE YELLOW URINE.
[2020-07-21] MEDS: Haloperidol 1 MG Tablet PO ×2 (01:05→11:06)
--- NOTE | 2020-07-21 01:48 | NURSING ---
haldol given by rn at 0105 for restlessness and confusion . pt can heard up at the nursing station talking loudly tennis scores and ohs, pt reports that he cannot sleep and is continuously asking the sitter the same question over and over.
--- NOTE | 2020-07-21 01:54 | NURSING ---
late entry 0000 pt remains restless in the bed throwing covers off and taking off attends. pt noted to taking quita-mask off and picking his nose, pt repeated this several times and did stop when asked but then would continue, pt hands and face were wiped off for dried blood, no active bleeding noted from nares.
--- NOTE | 2020-07-21 04:31 | NURSING ---
REVIEWED AND AGREE WITH PATIENT SERVICE REP'S FUNCTIONAL ASSESSMENT AND HANDOFF CHARTING.
[2020-07-21 06:00] VITALS: BP 126/83; BP 137/84; BP 151/86; PULSE 107; PULSE 78; PULSE 92
[2020-07-21] MEDS: Enoxaparin 40 MG/0.4 ML Syringe SC (06:45)
[2020-07-21] MEDS: Sodium Chloride 0.65% 1 SPRAY SPRAY.BTL NASAL ×3 (06:48→19:55)
[2020-07-21] MEDS: Levothyroxine 50 MCG Tablet PO (06:49)
[2020-07-21 07:30] VITALS: RESP 24; TEMP 36.4; O2SAT 100; O2SAT 98
[2020-07-21 07:35] VITALS: O2SAT 97
[2020-07-21] MEDS: Calcium Carb/Vitamin D 1 TABLET Tablet PO (08:05)
[2020-07-21] MEDS: Carvedilol 6.25 MG Tablet PO ×2 (08:05→19:54)
[2020-07-21] MEDS: predniSONE 5 MG Tablet PO (08:06)
[2020-07-21] MEDS: Senna/Docusate Sodium 1 Tablet 2 TABLET PO ×2 (08:06→19:56)
[2020-07-21] MEDS: Fluticasone 0.05% 1 SPRAY NASAL.SRY 2 SPRAY NASAL (09:48)
[2020-07-21] MEDS: Carbamide Peroxide 15 ML Bottle 5 DRP OTIC ×2 (09:49→19:55)
--- NOTE | 2020-07-21 09:59 | CASEMGMT ---
Social Work IDT met with patient and brother for Team meeting. Discussed patient's progress in therapy. Pt is CGA for tx, ambulating 95 ft with FWW at CGA, set up while seated for grooming, and UE dressing, CGA for LE dr while seated or Sonido while standing, min-CGA for bathing. Pt having SOB during ADLs but could identify when he needed rest and recover. The goal is to continue to work on strength and endurance. ST is working on memory, attention, and word finding. Pt is not sleeping at night. Dr. bibi Dodson, started on IV fluids, and nursing is sitting with pt at night due to delirium. Explained Medicare benefit. The goal is for pt to return home alone safely. Will continue to follow and ReTeam next week. EZ CanoW
--- NOTE | 2020-07-21 12:40 | PCM.CONS.PUL ---
Reason for Consult Date of Consultation: 07/21/20 Reason for Consultation: Pulmonary fibrosis History of Present Illness: The patient is a 75-year-old male, with a history as outlined below, who was initially admitted to the rehab unit on July 18 after being discharged from the hospital, during which time, he was treated for an exacerbation of his underlying interstitial lung disease which was felt to be secondary to pneumonia with antibiotics bronchodilators and steroids. The patient was also felt to have sustained a TIA during his hospital course. He reportedly has a history of idiopathic pulmonary fibrosis, for which he follows with a telecommunicator through the [facility]. His outpatient medication regimen includes pirfenidone and low-dose prednisone daily. He does report that at his baseline he requires 8 L/min of supplemental oxygen. Since being admitted to the hospital and treated with antimicrobials, the patient does report that his breathing quality is nearly back to baseline. On the morning of July 19, the patient had a large episode of epistaxis, which may have also led to some transient decompensation in his respiratory state. However, he has since recovered. Past Medical History Past Medical History (Chronic Problems): Chronic Problems Mild aortic stenosis (Chronic) Moderate pulmonary arterial systolic hypertension (Chronic) PA systolic recently estimated at 50 Anxiety (Chronic) Hypothyroidism (Chronic) Hyperlipidemia (Chronic) Coronary artery disease (Chronic) Status post stents. Hypertension (Chronic) Pulmonary fibrosis (Chronic) follows up with Dr. Kirti Miguel at [facility] Chronic respiratory failure (Chronic) Allergies No Known Allergies Allergy (Verified 08/25/18 09:36) Home Medications: Ambulatory Orders Medication Instructions Recorded Pirfenidone [Esbriet] 801 mg PO TID 07/03/16 Aspirin E.C. [Ecotrin] 81 mg PO QHS 08/25/18 Calcium Citrate/Vitamin D3 1 tab PO DAILY 08/25/18 [Citracal-D3 200Mg-250 Unit Tab] Pravastatin Sodium [Pravachol] 20 mg PO QHS 08/25/18 Cholecalciferol (Vitamin D3) 2,000 unit PO QHS 07/13/20 [Vitamin D3] Levothyroxine Sodium 50 mcg PO DAILY 07/13/20 Prednisone 5 mg PO DAILY 07/13/20 Senna/Docusate Sodium [Senokot-S] 2 tab PO BID PRN PRN tab 07/15/20 Acetaminophen [Tylenol Tablet] 650 mg PO Q6H PRN PRN tab 07/18/20 Amlodipine [Norvasc] 5 mg PO QHS 07/18/20 Carvedilol [Coreg (Beta Manan)] 6.25 mg PO BID 07/18/20 Clopidogrel Bisulfate [Plavix] 75 mg PO DAILY 07/18/20 Fluticasone 0.05% [Flonase Nasal 2 spray NASAL DAILY 07/18/20 [place]] Ipratropium/Albuterol Sulfate 3 ml INHALATION Q6H.RT 07/18/20 [Duoneb] Prednisone 10 mg PO DAILY 07/18/20 Tamsulosin HCl [Flomax] 0.4 mg PO DAILY@1730 07/18/20 levoFLOXacin tablet [Levaquin 750 mg PO DAILY 07/18/20 tablet] Surgical History: herniorrhaphy Psychiatric History: No pertinent psych hx - he has never been treated for anxiety or depression but, he admits to being anxious, kristie when he feels he is not breathing well., - - he has no children amd he is not . His brother Adi is his POA Lives: Alone Smoking Status: Never smoker Tobacco Use: Non-smoker Alcohol: None Drugs: None - *Family History Maternal History Items: Pulmonary Disease - Jet tells me that his mother and his sister had pulmonary fibrosis. Paternal History Items: No pertinent history Sibling History Items: Pulmonary Disease - He had a sister with pulmonary fibrosis. Review of Systems Constitutional: Reports: Fatigue Eyes: Denies: Blurred vision, Double vision HEENT: Denies: Head Aches, Sinus Congestion, Sinus Drainage Cardiovascular: Denies: Chest Pain, Palpitations Respiratory: Reports: Shortness of Breath Gastrointestinal: Denies: Abdominal Pain, Nausea, Vomiting Genitourinary: Denies: Dysuria Musculoskeletal: Denies: Joint Pain, Joint Tenderness Skin: Denies: Rash, Wounds Neurological: Denies: Numbness, Tingling, Focal weakness Psychiatric: Denies: Anxiety, Depression, Homicidal Ideations, Suicidal Ideations Hematologic/ Lymphatic: Denies: Easy Bruising, Easy Bleeding Patient Problems: Active and Suspected Problems Pneumonia (Acute) Hyponatremia (Acute) Objective: The patient's most recent lab work, culture data and imaging studies have all been personally reviewed. - Physical Exam Vitals/I&O's: Vital Signs Temp Pulse Resp BP Pulse Ox 95.9 F L 78 24 H 151/86 H 97 07/20/20 20:40 07/21/20 06:00 07/21/20 07:30 07/21/20 06:00 07/21/20 07:35 Oxygen Flow Rate (L/min) 6 Oxygen Delivery Method Venturi Mask Weight: 177 lb 14.609 oz Body Mass Index (BMI) 23.4 Orthostatic Vital Signs Start: 07/19/20 06:08 Freq: q24h Status: Active Protocol: Activity Type Activity Date Activity User E-Sign Co-Sign Detail Recorded Client Recorded Date Recorded By Document 07/21/20 06:00 CDA [id number] 07/21/20 08:57 CDA 07/21/20 06:00 Orthostatic Vitals Standing -Blood Pressure (90/60-120/80) 137/84 H -Extremity Use Left Arm -Pulse Rate (60-100) 107 H Sitting -Blood Pressure (90/60-120/80) 126/83 H -Extremity Use Left Arm -Pulse Rate (60-100) 92 Lying -Blood Pressure (90/60-120/80) 151/86 H -Extremity Use Left Arm -Pulse Rate (60-100) 78 Intake and Output for Last 24 Hours 07/19/20 07/20/20 07/21/20 23:59 23:59 23:59 Intake Total 1380 / 1780 2320 / 2470 510 / 510 Output Total 1900 / 2350 1475 / 1875 1000 / 1000 Balance -520 / -570 845 / 595 -490 / -490 General: Alert, Cooperative, No apparent distress HEENT: Atraumatic, Normocephalic Oral: No Gingival or Mucosal Lesions/ Ulcerations Neck: Supple, No Nodes, Trachea Midline Lungs: Diminished, Rales Cardiovascular: Regular rate, Regular Rhythm Abdomen: Bowel Sounds Present, Soft, Non Tender Extremities: No clubbing, No cyanosis, No edema Skin: No breakdown Musculoskeletal: No Tenderness to Palpation of Joints or Extremities Lymphatic: No Cervical, Supraclavicular, or Inguinal Adenopathy Neurological: Cranial nerves II-XII grossly intact, Neuro grossly intact Psych/Mental Status: Flat Affect Labs (Last 48 Hours) 07/20/20 07/20/20 07/20/20 05:30 05:30 05:30 WBC 14.4 H RBC 4.15 L Hgb 13.3 Hct 38.6 L MCV 93.0 MCH 32.0 MCHC 34.5 RDW Std Deviation 41.2 RDW Coeff of Araseli 12.2 Plt Count 368 MPV 9.3 PT 13.2 INR 1.1 APTT 24.5 Sodium 129 L Potassium 3.7 Chloride 93 L Carbon Dioxide 30.0 Anion Gap 6 BUN 25 H Creatinine 1.02 Estim Creat Clear Calc 69.63 Est GFR (MDRD) Af Amer 91 Est GFR (MDRD) Non-Af 75 BUN/Creatinine Ratio 24.5 H Glucose 93 Calcium 8.5 Phosphorus 2.9 Magnesium 2.2 Urine Color Urine Clarity Urine pH Ur Specific [place] Urine Protein Urine Glucose (UA) Urine Ketones Urine Occult Blood Urine Nitrite Urine Bilirubin Urine Urobilinogen Ur Leukocyte Esterase Urine RBC Urine WBC Ur Squamous Epith Cells Urine Bacteria Urine Mucus Ur Random Sodium Urine Creatinine 07/20/20 07/20/20 17:20 17:20 WBC RBC Hgb Hct MCV MCH MCHC RDW Std Deviation RDW Coeff of Araseli Plt Count MPV PT INR APTT Sodium Potassium Chloride Carbon Dioxide Anion Gap BUN Creatinine Estim Creat Clear Calc Est GFR (MDRD) Af Amer Est GFR (MDRD) Non-Af BUN/Creatinine Ratio Glucose Calcium Phosphorus Magnesium Urine Color Yellow Urine Clarity Clear Urine pH 6.0 Ur Specific [place] 1.015 Urine Protein 15 H Urine Glucose (UA) Normal Urine Ketones Negative Urine Occult Blood Negative Urine Nitrite Negative Urine Bilirubin Negative Urine Urobilinogen Normal Ur Leukocyte Esterase Negative Urine RBC 0 SEEN Urine WBC 0 SEEN Ur Squamous Epith Cells 0 SEEN Urine Bacteria 0 SEEN Urine Mucus 0 SEEN Ur Random Sodium 73 Urine Creatinine 57.40 Clinical Impression(s) from Imaging Studies Chest X-Ray 07/20/20 09:20 IMPRESSION: Improved aeration although there is evidence of a scarring at the lung bases with areas of confluence. Electronically Signed: Michael Scherer, at 13:04 EDT , Service support , Current Medications Acetaminophen (Acetaminophen 325 Mg Tablet) 650 mg PO Q6H PRN PRN PRN Reason: HEADACHE Albuterol/Ipratropium (Ipratropium/Albuterol Sulfate 3 Ml Ampul.Neb) 3 ml INHALATION Q6H.RT PRN PRN Reason: Wheezing or SOB Amlodipine Besylate (Amlodipine 5 Mg Tablet) 5 mg PO QHS [facility] Last Admin: 07/19/20 21:08 Dose: 5 mg Documented by: Aspirin (Aspirin E.C. 81 Mg Tablet) 81 mg PO QHS [facility] Last Admin: 07/19/20 13:09 Dose: Not Given Documented by: Bisacodyl (Bisacodyl 10 Mg Suppository) 10 mg RECTAL .PRN X 1 PRN PRN Reason: Constipation Calcium/Vitamin D (Calcium Carb/Vitamin D 1 Tablet Tablet) 1 tablet PO DAILYCM [facility] Last Admin: 07/21/20 08:05 Dose: 1 tablet Documented by: Carbamide Perox/Anhydrous Glycerin (Carbamide Peroxide 15 Ml Bottle) 5 drop OTIC BID [facility] Last Admin: 07/21/20 09:49 Dose: 5 drop Documented by: Carvedilol (Carvedilol 6.25 Mg Tablet) 6.25 mg PO BID [facility] Last Admin: 07/21/20 08:05 Dose: 6.25 mg Documented by: Cholecalciferol (Cholecalciferol (Vit D3) 1,000 Unit (25mcg)) 2,000 unit PO QHS [facility] Last Admin: 07/20/20 20:06 Dose: 2,000 unit Documented by: Clopidogrel Bisulfate (Clopidogrel Bisulfate 75 Mg Tablet) 75 mg PO DAILY [facility] Last Admin: 07/19/20 09:56 Dose: Not Given Documented by: Emollient Ointment (Emollient Combination No.72 500 Ml Lotion) 1 applic TOPICAL BID [facility]; Protocol Last Admin: 07/21/20 09:49 Dose: 1 applicatio Documented by: Enoxaparin Sodium (Enoxaparin 40 Mg/0.4 Ml Syringe) 40 mg SC DAILY@0600 [facility] Last Admin: 07/21/20 06:45 Dose: 40 mg Documented by: Fluticasone Propionate (Fluticasone 0.05% 1 [place] Nasal.Sry) 2 spray NASAL DAILY [facility] Last Admin: 07/21/20 09:48 Dose: 2 spray Documented by: Haloperidol (Haloperidol 1 Mg Tablet) 1 mg PO TID PRN PRN PRN Reason: agitation/confusion Last Admin: 07/21/20 11:06 Dose: 1 mg Documented by: Sodium Chloride () 1,000 mls @ 75 mls/hr IV .[id number] [facility] Stop: 07/21/20 13:24 Last Admin: 07/20/20 23:50 Dose: 75 mls/hr Documented by: Levothyroxine Sodium (Levothyroxine 50 Mcg Tablet) 50 mcg PO DAILY@0600 [facility] Last Admin: 07/21/20 06:49 Dose: 50 mcg Documented by: Magnesium Hydroxide (Magnesium Hydroxide 30 Ml Udc) 30 ml PO .PRN X 1 PRN PRN Reason: Constipation Ondansetron HCl (Ondansetron Odt 4 Mg Tablet) 4 mg PO Q6H PRN PRN PRN Reason: NAUSEA Last Admin: 07/19/20 13:16 Dose: 4 mg Documented by: Pravastatin Sodium (Pravastatin 20 Mg Tablet) 20 mg PO QHS [facility] Last Admin: 07/20/20 20:10 Dose: 20 mg Documented by: Prednisone (Prednisone 5 Mg Tablet) 5 mg PO DAILYCM [facility] Last Admin: 07/21/20 08:06 Dose: 5 mg Documented by: Quetiapine Fumarate (Quetiapine 25 Mg Tablet) 25 mg PO DAILY@2000 [facility] Senna/Docusate Sodium (Senna/Docusate Sodium 1 Tablet) 2 tablet PO BID [facility] Last Admin: 07/21/20 08:06 Dose: 2 tablet Documented by: Sodium Chloride (0.9% Saline Lock 10 Ml Syringe) 10 - 40 ml IV UD PRN PRN Reason: SALINE FLUSH Last Admin: 07/20/20 10:23 Dose: 20 ml Documented by: Sodium Chloride (Sodium Chloride 0.65% 1 [place].Btl) 1 spray NASAL TID [facility] Last Admin: 07/21/20 06:48 Dose: 1 spray Documented by: Tamsulosin HCl (Tamsulosin Hcl 0.4 Mg Capsule) 0.4 mg PO DAILY@1730 [facility] Last Admin: 07/20/20 17:14 Dose: 0.4 mg Documented by: Assessment/Plan All Active Problems Pneumonia (Acute) Sepsis (Resolved) Hyponatremia (Acute) RECOMMENDATIONS: 1. Continue pirfenidone per home regimen. 2. Resume baseline prednisone dose of 5 mg daily. 3. Continue supplemental oxygen at 8 L/min per outpatient need. 4. Follow-up with primary telecommunicator at the [facility] following discharge. IMPRESSIONS: 1. Chronic hypoxemic respiratory failure due to history of idiopathic pulmonary fibrosis The patient has a known history of IPF, which is being managed medically with pirfenidone and low-dose prednisone. He was recently treated for community-acquired pneumonia with antimicrobials, bronchodilators and IV steroids. The patient's respiratory status appears to be at baseline. Recommend transitioning him back to his baseline prednisone dose. Continue pirfenidone without interruption. Continue supplemental oxygen per home regimen as well. The patient should follow-up with his primary telecommunicator at the [facility] following discharge. Please call with any additional questions. This note was generated with [employer] dictation software. It may contain incorrect words, spelling, and punctuation that were not noted in checking the note before signing. Inpatient E&M: 89241 Init Hosp L2
--- NOTE | 2020-07-21 13:35 | PCM.PROGNOTE ---
Patient Problems: Active and Suspected Problems Pneumonia (Acute) Hyponatremia (Acute) Subjective: Man was seen on team rounds today and his brother Adi was present for rounds. Afebrile VSS-he was still positive again this a.m. but was asymptomatic. Maintaining appropriate oxygen saturation a Ventimask with 6 to 8 L of O2. Oral intake is fair Discussed with nursing -Despite the 12.5 mg of Seroquel last night he was restless and fidgety and trying to pick his nose. He had a sitter. He also received a dose of Haldol 1 mg PO. Today he is lucid but very sleepy. He asks appropriate questions and responds appropriately to questions. He has been able to do his therapy despite being sleepy yesterday and today. No further bleeding from his nose. Reviewed the PT/OT/ST notes Medication list reviewed. He has been coughing some......appears to be old blood. He denies increased work of breathing. Denies CP, dysuria, N/V. - Physical Exam Vitals/I&O's: Vital Signs Temp Pulse Resp BP Pulse Ox 95.9 F L 78 24 H 151/86 H 97 07/20/20 20:40 07/21/20 06:00 07/21/20 07:30 07/21/20 06:00 07/21/20 07:35 Oxygen Flow Rate (L/min) 6 Oxygen Delivery Method Venturi Mask Weight: 177 lb 14.609 oz Body Mass Index (BMI) 23.4 Orthostatic Vital Signs Start: 07/19/20 06:08 Freq: q24h Status: Active Protocol: Activity Type Activity Date Activity User E-Sign Co-Sign Detail Recorded Client Recorded Date Recorded By Document 07/21/20 06:00 CDA [id number] 07/21/20 08:57 CDA 07/21/20 06:00 Orthostatic Vitals Standing -Blood Pressure (90/60-120/80 mm Hg) 137/84 H -Extremity Use Left Arm -Pulse Rate (60-100 beats/min) 107 H Sitting -Blood Pressure (90/60-120/80 mm Hg) 126/83 H -Extremity Use Left Arm -Pulse Rate (60-100 beats/min) 92 Lying -Blood Pressure (90/60-120/80 mm Hg) 151/86 H -Extremity Use Left Arm -Pulse Rate (60-100 beats/min) 78 Intake and Output for Last 24 Hours 07/19/20 07/20/20 07/21/20 23:59 23:59 23:59 Intake Total 1380 / 1780 2320 / 2470 1510 / 1510 Output Total 1900 / 2350 1475 / 1875 1000 / 1000 Balance -520 / -570 845 / 595 510 / 510 General: Cooperative, - - sleepy but can be aroused easily HEENT: - - He has a small amount of old dried blood in the left posterior pharynx Oral: No Gingival or Mucosal Lesions/ Ulcerations, Dry Mucosa Neck: Supple, No Nodes, Trachea Midline Lungs: Diminished, Rales - He has coarse crackles in both bases. There is no wheezing and no rhonchi. He is not tachypneic when he has his oxygen on and has no conversational dyspnea. There is no accessory muscle use. Cardiovascular: Regular rate, Regular Rhythm, Normal S1, Normal S2, No Gallop Abdomen: Bowel Sounds Present, Soft, Non Tender, Non-Distended Extremities: No cyanosis, No edema Skin: No rashes, No breakdown Neurological: Cranial nerves II-XII grossly intact, Neuro grossly intact Psych/Mental Status: Appropriate, Flat Affect Microbiology Past 72 Hours 07/18/20 20:55 Stool Stool Occult Blood (TYLER) - Final Laboratory Results 07/20/20 17:20: Urine Color Yellow, Urine Clarity Clear, Urine pH 6.0, Ur Specific [place] 1.015, Urine Protein 15 H, Urine Glucose (UA) Normal, Urine Ketones Negative, Urine Occult Blood Negative, Urine Nitrite Negative, Urine Bilirubin Negative, Urine Urobilinogen Normal, Ur Leukocyte Esterase Negative, Urine RBC 0 SEEN, Urine WBC 0 SEEN, Ur Squamous Epith Cells 0 SEEN, Urine Bacteria 0 SEEN, Urine Mucus 0 SEEN 07/20/20 17:20: Ur Random Sodium 73, Urine Creatinine 57.40 Current Medications Acetaminophen (Acetaminophen 325 Mg Tablet) 650 mg PO Q6H PRN PRN PRN Reason: HEADACHE Albuterol/Ipratropium (Ipratropium/Albuterol Sulfate 3 Ml Ampul.Neb) 3 ml INHALATION Q6H.RT PRN PRN Reason: Wheezing or SOB Amlodipine Besylate (Amlodipine 5 Mg Tablet) 5 mg PO QHS [facility] Last Admin: 07/19/20 21:08 Dose: 5 mg Documented by: Aspirin (Aspirin E.C. 81 Mg Tablet) 81 mg PO QHS [facility] Last Admin: 07/19/20 13:09 Dose: Not Given Documented by: Bisacodyl (Bisacodyl 10 Mg Suppository) 10 mg RECTAL .PRN X 1 PRN PRN Reason: Constipation Calcium/Vitamin D (Calcium Carb/Vitamin D 1 Tablet Tablet) 1 tablet PO DAILYCM [facility] Last Admin: 07/21/20 08:05 Dose: 1 tablet Documented by: Carbamide Perox/Anhydrous Glycerin (Carbamide Peroxide 15 Ml Bottle) 5 drop OTIC BID [facility] Last Admin: 07/21/20 09:49 Dose: 5 drop Documented by: Carvedilol (Carvedilol 6.25 Mg Tablet) 6.25 mg PO BID [facility] Last Admin: 07/21/20 08:05 Dose: 6.25 mg Documented by: Cholecalciferol (Cholecalciferol (Vit D3) 1,000 Unit (25mcg)) 2,000 unit PO QHS [facility] Last Admin: 07/20/20 20:06 Dose: 2,000 unit Documented by: Clopidogrel Bisulfate (Clopidogrel Bisulfate 75 Mg Tablet) 75 mg PO DAILY [facility] Last Admin: 07/19/20 09:56 Dose: Not Given Documented by: Emollient Ointment (Emollient Combination No.72 500 Ml Lotion) 1 applic TOPICAL BID [facility]; Protocol Last Admin: 07/21/20 09:49 Dose: 1 applicatio Documented by: Enoxaparin Sodium (Enoxaparin 40 Mg/0.4 Ml Syringe) 40 mg SC DAILY@0600 [facility] Last Admin: 07/21/20 06:45 Dose: 40 mg Documented by: Fluticasone Propionate (Fluticasone 0.05% 1 [place] Nasal.Sry) 2 spray NASAL DAILY [facility] Last Admin: 07/21/20 09:48 Dose: 2 spray Documented by: Haloperidol (Haloperidol 1 Mg Tablet) 1 mg PO TID PRN PRN PRN Reason: agitation/confusion Last Admin: 07/21/20 11:06 Dose: 1 mg Documented by: Levothyroxine Sodium (Levothyroxine 50 Mcg Tablet) 50 mcg PO DAILY@0600 [facility] Last Admin: 07/21/20 06:49 Dose: 50 mcg Documented by: Magnesium Hydroxide (Magnesium Hydroxide 30 Ml Udc) 30 ml PO .PRN X 1 PRN PRN Reason: Constipation Ondansetron HCl (Ondansetron Odt 4 Mg Tablet) 4 mg PO Q6H PRN PRN PRN Reason: NAUSEA Last Admin: 07/19/20 13:16 Dose: 4 mg Documented by: Pravastatin Sodium (Pravastatin 20 Mg Tablet) 20 mg PO QHS [facility] Last Admin: 07/20/20 20:10 Dose: 20 mg Documented by: Prednisone (Prednisone 5 Mg Tablet) 5 mg PO DAILYCM [facility] Last Admin: 07/21/20 08:06 Dose: 5 mg Documented by: Quetiapine Fumarate (Quetiapine 25 Mg Tablet) 25 mg PO DAILY@1999 [facility] Senna/Docusate Sodium (Senna/Docusate Sodium 1 Tablet) 2 tablet PO BID [facility] Last Admin: 07/21/20 08:06 Dose: 2 tablet Documented by: Sodium Chloride (0.9% Saline Lock 10 Ml Syringe) 10 - 40 ml IV UD PRN PRN Reason: SALINE FLUSH Last Admin: 07/20/20 10:23 Dose: 20 ml Documented by: Sodium Chloride (Sodium Chloride 0.65% 1 [place].Btl) 1 spray NASAL TID [facility] Last Admin: 07/21/20 13:27 Dose: 1 spray Documented by: Tamsulosin HCl (Tamsulosin Hcl 0.4 Mg Capsule) 0.4 mg PO DAILY@1730 [facility] Last Admin: 07/20/20 17:14 Dose: 0.4 mg Documented by: Medical Necessity - Tobacco Use Smoking Status: Never smoker Tobacco Use: Non-smoker Assessment/Plan All Active Problems Pneumonia (Acute) Sepsis (Resolved) Hyponatremia (Acute) Impressions 1. Debility secondary to recent sepsis secondary to pneumonia and to CVA with resolution of mjost of the aphasia but still with some difficulty with word finding and some higher level executive cognitive dysfunction 2. Resolving pneumonia 3. Chronic hypoxic respiratory failure secondary to pulmonary fibrosis with increased oxygen requirement at admission to the hospital -currently stable on a 4 L nasal cannula with a pulse ox of 98%. 4. Hyponatremia-etiology? Fractional excretion of sodium is 1% which is not consistent with prerenal azotemia however the patient has dry mucous membranes. 5. Drug-induced hyperglycemia secondary to high-dose steroids 6. Pulmonary fibrosis diagnosed in 2013-on prednisone 5 mg p.o. daily and pirfenidone. He follows with Dr. Kirti Miguel at the [facility] 7. Moderate pulmonary hypertension with recent echocardiogram reporting a right ventricular systolic pressure estimated at 50 8. Mild aortic stenosis 9. Coronary artery disease with history of stents 10. Dyslipidemia 11. Hypothyroidism-TSH and T4 are within normal limits. 12. Hypertension-controlled. Amlodipine is on hold due to symptomatic orthostatic hypotension. 13. BPH with urine retention-started on Flomax during his acute hospital stay and urine retention has resolved 14. epistaxis with suspected aspiration of blood. 15. Cerumen impaction in the left EAC with partial occlusion of the canal. 16. Acute delirium secondary to the combined effects of high-dose steroids, Levaquin, hyponatremia, stroke, sleep deprivation Jet was seen by Dr. Huynh today and I did review his consult. Prednisone has been decreased to 5 mg p.o. daily starting today. Aerosol treatments are as needed for wheezing. No antibiotics indicated at this time Will try a nasal cannula again today. Seroquel has been increased to 25 mg p.o. tonight and he will have a sitter again. I suspect once the steroids have worked their way out of his system his anxiety and insomnia will improve. Continue as needed Haldol 1 mg 3 times daily as needed. BMP in the a.m.-if the sodium is still low in the a.m. we will need to check a fasting cortisol level. He has now finished 2 L of IV fluid. Continue to monitor for any signs or sx of pneumonia Inpatient E&M: [id number] Subs Hosp L2
[2020-07-21] MEDS: Tamsulosin HCl 0.4 MG Capsule PO (17:44)
[2020-07-21 19:10] VITALS: BP 148/87; PULSE 78; RESP 22; TEMP 36.2; O2SAT 100
[2020-07-21 19:32] VITALS: O2SAT 100
[2020-07-21] MEDS: QUEtiapine 25 MG Tablet PO (19:54)
[2020-07-21] MEDS: Pravastatin 20 MG Tablet PO (19:56)
[2020-07-22] MEDS: Enoxaparin 40 MG/0.4 ML Syringe SC (05:51)
[2020-07-22] MEDS: Levothyroxine 50 MCG Tablet PO (05:51)
[2020-07-22] MEDS: Sodium Chloride 0.65% 1 SPRAY SPRAY.BTL NASAL ×3 (05:51→20:13)
[2020-07-22 05:59] LABS: Anion Gap 6 (5-15); BUN 19 mg/dL (7-18); BUN/Creat Ratio 14.7 RATIO (10-20); Calcium,Total 8.5 mg/dL (8.5-10.1); Chloride 95 mmol/L (98-107); Creatinine, Serum 1.29 mg/dL (0.70-1.30); EST Glomerular Filtration Rate 58 mL/min (>60); Est Glom Filt Rate - Afr Amer 70 mL/min (>60); Estimated Creatinine Clearance 55.06 ml/min; Glucose 85 mg/dL (74-106); Potassium 4.4 mmol/L (3.5-5.1); Sodium Level 132 mmol/L (136-145)
[2020-07-22 06:00] VITALS: BP 144/73; BP 146/74; BP 89/69; PULSE 105; PULSE 76; PULSE 84
[2020-07-22] MEDS: 0.9% Saline Lock 10 ML Syringe IV (06:27)
[2020-07-22] MEDS: Calcium Carb/Vitamin D 1 TABLET Tablet PO (08:08)
[2020-07-22] MEDS: Fluticasone 0.05% 1 SPRAY NASAL.SRY 2 SPRAY NASAL (08:08)
[2020-07-22] MEDS: Carbamide Peroxide 15 ML Bottle 5 DRP OTIC ×2 (08:09→20:16)
[2020-07-22 08:20] VITALS: BP 105/41; BP 137/75; BP 139/72; PULSE 104; PULSE 90
[2020-07-22 08:55] VITALS: O2SAT 96
--- NOTE | 2020-07-22 09:30 | PN_ITS ---
Patient Problems: Active and Suspected Problems Pneumonia (Acute) Hyponatremia (Acute) Subjective: Afebrile He is still mildly orthostatic today but he is asymptomatic and it has definitely improved with hydration. Maintaining appropriate oxygen saturation on a 6 L nasal cannula. Oral intake is good Discussed with nursing - no problems that need addressed Reviewed the PT/OT/ST notes Medication list reviewed. All lab was personally reviewed. The sodium today is 132 with a chloride of 95. Potassium is 4.4 and the BUN is down to 19 from 25. Creatinine is 1.29 today, up from 1.02 on 07/20/2020. He finally slept well last night. He feels drowsy today and he stated it was harder to do therapy this morning. He has an occasional cough. There was a small amount of bleeding from the right nostril today. No bleeding from the Left nares. Denies nausea, vomiting, abdominal pain, dysuria, chest pain. Could not remem valeria that he took the Esbriet this morning. - Physical Exam Vitals/I&O's: Vital Signs Temp Pulse Resp BP Pulse Ox 97.2 F L 90 22 H 139/72 H 100 07/21/20 19:10 07/22/20 08:20 07/21/20 19:10 07/22/20 08:20 07/21/20 19:32 Oxygen Flow Rate (L/min) 7 Oxygen Delivery Method Nasal Cannula Weight: 177 lb 14.609 oz Body Mass Index (BMI) 23.4 Orthostatic Vital Signs Start: 07/19/20 06:08 Freq: q24h Status: Active Protocol: Activity Type Activity Date Activity User E-Sign Co-Sign Detail Recorded Client Recorded Date Recorded By Document 07/22/20 08:20 [id number] 07/22/20 08:21 07/22/20 08:20 Orthostatic Vitals Standing -Blood Pressure (90/60-120/80 mm Hg) 105/41 L -Extremity Use Left Arm -Pulse Rate (60-100 beats/min) 104 H Sitting -Blood Pressure (90/60-120/80 mm Hg) 137/75 H -Extremity Use Left Arm -Pulse Rate (60-100 beats/min) 104 H Lying -Blood Pressure (90/60-120/80 mm Hg) 139/72 H -Extremity Use Left Arm -Pulse Rate (60-100 beats/min) 90 Intake and Output for Last 24 Hours 07/20/20 07/21/20 07/22/20 23:59 23:59 23:59 Intake Total 2320 / 2470 1750 / 1750 Output Total 1475 / 1875 3100 / 3100 650 / 650 Balance 845 / 595 -1350 / -1350 -650 / -650 General: - - he is drowsy today and looks very tired. Poor voice projection. Telling me that he can not hear......I once again suggested he have a hearing test after he is discharged to see if he would benefit from a hearing aid. I also told him that is more difficult to hear when everyone is wearing a mask HEENT: Atraumatic, - - Pupils are equal and round Oral: Moist Mucosa Neck: Supple, No Nodes Lungs: Rales - Coarse crackles in both bases with no egophony today. He did not cough after taking a few deep breaths. There is no wheezing and no rhonchi. He did not have conversational dyspnea and there is no accessory muscle use. Cardiovascular: Regular rate, Regular Rhythm, Normal S1, Normal S2, No Gallop, - - Heart sounds are distant Abdomen: Bowel Sounds Present, Soft, Non Tender, Non-Distended Extremities: No edema, No Calf Tenderness Skin: No rashes, No breakdown Psych/Mental Status: Flat Affect Laboratory Results 07/22/20 05:26: Sodium 132 L, Potassium 4.4, Chloride 95 L, Carbon Dioxide 31.0, Anion Gap 6, BUN 19 H, Creatinine 1.29, Estim Creat Clear Calc 55.06, Est GFR (MDRD) Af Amer 70, Est GFR (MDRD) Non-Af 58 L, BUN/Creatinine Ratio 14.7, Glucose 85, Calcium 8.5 Current Medications Acetaminophen (Acetaminophen 325 Mg Tablet) 650 mg PO Q6H PRN PRN PRN Reason: HEADACHE Albuterol/Ipratropium (Ipratropium/Albuterol Sulfate 3 Ml Ampul.Neb) 3 ml INHALATION Q6H.RT PRN PRN Reason: Wheezing or SOB Amlodipine Besylate (Amlodipine 5 Mg Tablet) 5 mg PO QHS [facility] Last Admin: 07/19/20 21:08 Dose: 5 mg Documented by: Aspirin (Aspirin E.C. 81 Mg Tablet) 81 mg PO QHS [facility] Last Admin: 07/19/20 13:09 Dose: Not Given Documented by: Bisacodyl (Bisacodyl 10 Mg Suppository) 10 mg RECTAL .PRN X 1 PRN PRN Reason: Constipation Calcium/Vitamin D (Calcium Carb/Vitamin D 1 Tablet Tablet) 1 tablet PO DAILYCM [facility] Last Admin: 07/22/20 08:08 Dose: 1 tablet Documented by: Carbamide Perox/Anhydrous Glycerin (Carbamide Peroxide 15 Ml Bottle) 5 drop OTIC BID [facility] Last Admin: 07/22/20 08:09 Dose: 5 drop Documented by: Carvedilol (Carvedilol 6.25 Mg Tablet) 6.25 mg PO BID [facility] Last Admin: 07/21/20 19:54 Dose: 6.25 mg Documented by: Cholecalciferol (Cholecalciferol (Vit D3) 1,000 Unit (25mcg)) 2,000 unit PO QHS [facility] Last Admin: 07/21/20 19:56 Dose: 2,000 unit Documented by: Clopidogrel Bisulfate (Clopidogrel Bisulfate 75 Mg Tablet) 75 mg PO DAILY [facility] Last Admin: 07/19/20 09:56 Dose: Not Given Documented by: Emollient Ointment (Emollient Combination No.72 500 Ml Lotion) 1 applic TOPICAL BID [facility]; Protocol Last Admin: 07/21/20 19:55 Dose: 1 applicatio Documented by: Enoxaparin Sodium (Enoxaparin 40 Mg/0.4 Ml Syringe) 40 mg SC DAILY@0600 [facility] Last Admin: 07/22/20 05:51 Dose: 40 mg Documented by: Fluticasone Propionate (Fluticasone 0.05% 1 [place] Nasal.Sry) 2 spray NASAL DAILY [facility] Last Admin: 07/22/20 08:08 Dose: 2 spray Documented by: Haloperidol (Haloperidol 1 Mg Tablet) 1 mg PO TID PRN PRN PRN Reason: agitation/confusion Last Admin: 07/21/20 11:06 Dose: 1 mg Documented by: Levothyroxine Sodium (Levothyroxine 50 Mcg Tablet) 50 mcg PO DAILY@0600 [facility] Last Admin: 07/22/20 05:51 Dose: 50 mcg Documented by: Magnesium Hydroxide (Magnesium Hydroxide 30 Ml Udc) 30 ml PO .PRN X 1 PRN PRN Reason: Constipation Ondansetron HCl (Ondansetron Odt 4 Mg Tablet) 4 mg PO Q6H PRN PRN PRN Reason: NAUSEA Last Admin: 07/19/20 13:16 Dose: 4 mg Documented by: Pravastatin Sodium (Pravastatin 20 Mg Tablet) 20 mg PO QHS [facility] Last Admin: 07/21/20 19:56 Dose: 20 mg Documented by: Prednisone (Prednisone 5 Mg Tablet) 5 mg PO DAILYCM [facility] Last Admin: 07/21/20 08:06 Dose: 5 mg Documented by: Quetiapine Fumarate (Quetiapine 25 Mg Tablet) 25 mg PO DAILY@1999 [facility] Last Admin: 07/21/20 19:54 Dose: 25 mg Documented by: Senna/Docusate Sodium (Senna/Docusate Sodium 1 Tablet) 2 tablet PO BID [facility] Last Admin: 07/21/20 19:56 Dose: 2 tablet Documented by: Sodium Chloride (0.9% Saline Lock 10 Ml Syringe) 10 - 40 ml IV UD PRN PRN Reason: SALINE FLUSH Last Admin: 07/22/20 06:27 Dose: 10 ml Documented by: Sodium Chloride (Sodium Chloride 0.65% 1 [place].Btl) 1 spray NASAL TID [facility] Last Admin: 07/22/20 05:51 Dose: 1 spray Documented by: Tamsulosin HCl (Tamsulosin Hcl 0.4 Mg Capsule) 0.4 mg PO DAILY@1730 [facility] Last Admin: 07/21/20 17:44 Dose: 0.4 mg Documented by: Medical Necessity - Tobacco Use Smoking Status: Never smoker Tobacco Use: Non-smoker Assessment/Plan All Active Problems Pneumonia (Acute) Sepsis (Resolved) Hyponatremia (Acute) Impressions 1. Post stroke debility combined with debility due to recent pneumonia in a patient with chronic lung disease secondary to idiopathic pulmonary fibrosis. 2. Epistaxis-resolved 3. Acute delirium-multifactorial. Secondary to high-dose steroids, infection, hyponatremia, dehydration, sleep deprivation and Levaquin. He finally was able to sleep last night. He only received 5 mg of prednisone yesterday a.m. 4. Increased drowsiness today and fatigue. This is possibly related to the decrease in steroids to 5 mg and sleep deprivation. He was able to sleep last night but did not sleep the preceding 3 nights for more than a few hours. 5. Presbycusis-I suspect that this predates his hospital admission. He likely lip reads and is unable to do this with everyone wearing a mask. I recommended he get a hearing test post discharge. 6. Hyponatremia-etiology? Fractional excretion of sodium is 1% which is not consistent with prerenal azotemia. Creatinine did increase to 1.29 today from 1.02 on 07/20/2020. 7. Orthostatic hypotension-he is currently asymptomatic and the orthostasis has improved with hydration. Check postvoid residuals x3 Continue current drug regimen but decrease the Seroquel to 1.5 mg at 8 PM ni lizz. With discontinuation of Levaquin and resumption of his baseline dose of prednisone he may no longer require Seroquel. Continue as needed Haldol. Likely will not need a sitter tonight. Recheck a BMP on Saturday. Inpatient E&M: [id number] Subs Hosp L2
[2020-07-22 09:43] VITALS: BP 141/75; PULSE 77; RESP 20; TEMP 36.6; O2SAT 100
[2020-07-22] MEDS: Carvedilol 6.25 MG Tablet PO ×2 (10:04→20:06)
[2020-07-22] MEDS: Senna/Docusate Sodium 1 Tablet 2 TABLET PO ×2 (10:04→20:05)
[2020-07-22] MEDS: Clopidogrel Bisulfate 75 MG Tablet PO (10:04)
[2020-07-22] MEDS: predniSONE 5 MG Tablet PO (10:04)
--- NOTE | 2020-07-22 10:11 | CASEMGMT ---
Social Work Met with patient. Notified pt of Medicare approved 18 days with EDC date 08/05. Pt reports mood is stable, but tired. He slept better last night, but nose keeps bleeding. Pt appeared tired and down, but pt expressed no issues or decline in mood. Pt is not confident he can return home alone after the 18 days, but encouraged pt to keep working hard in therapy, and IDT will follow week to week to review progress. SW will assist with DC plans and provide options if pt does not feel ready to return home alone. Pt appreciative. No other issues noted. Will Reteam . EZ CanoW
[2020-07-22] MEDS: Tamsulosin HCl 0.4 MG Capsule PO (17:49)
[2020-07-22 19:49] VITALS: BP 152/71; PULSE 76; RESP 18; TEMP 36.4; O2SAT 100
[2020-07-22] MEDS: QUEtiapine 25 MG Tablet 12.5 MG PO (20:05)
[2020-07-22] MEDS: Pravastatin 20 MG Tablet PO (20:06)
[2020-07-22] MEDS: Aspirin E.C. 81 MG Tablet PO (20:06)
[2020-07-22] MEDS: amLODIPine 5 MG Tablet PO (20:08)
[2020-07-22 22:00] VITALS: PULSE 76; O2SAT 100
[2020-07-23] MEDS: 0.9% Saline Lock 10 ML Syringe IV (04:21)
[2020-07-23] MEDS: Sodium Chloride 0.65% 1 SPRAY SPRAY.BTL NASAL ×3 (06:27→19:55)
[2020-07-23] MEDS: Enoxaparin 40 MG/0.4 ML Syringe SC (06:30)
[2020-07-23] MEDS: Levothyroxine 50 MCG Tablet PO (06:30)
[2020-07-23] MEDS: Acetaminophen 325 MG Tablet 650 MG PO (06:32)
[2020-07-23] MEDS: Carvedilol 6.25 MG Tablet PO ×2 (07:53→19:54)
[2020-07-23] MEDS: predniSONE 5 MG Tablet PO (07:53)
[2020-07-23] MEDS: Calcium Carb/Vitamin D 1 TABLET Tablet PO (07:53)
[2020-07-23] MEDS: Fluticasone 0.05% 1 SPRAY NASAL.SRY 2 SPRAY NASAL (07:54)
[2020-07-23] MEDS: Senna/Docusate Sodium 1 Tablet 2 TABLET PO (07:54)
[2020-07-23] MEDS: Clopidogrel Bisulfate 75 MG Tablet PO (07:54)
[2020-07-23 09:39] VITALS: BP 144/77; PULSE 74; RESP 18; TEMP 36.7; O2SAT 97
[2020-07-23] MEDS: Carbamide Peroxide 15 ML Bottle 5 DRP OTIC ×2 (12:31→19:54)
[2020-07-23 15:50] VITALS: O2SAT 96
[2020-07-23] MEDS: Tamsulosin HCl 0.4 MG Capsule PO (16:41)
[2020-07-23] MEDS: QUEtiapine 25 MG Tablet 12.5 MG PO (19:54)
[2020-07-23] MEDS: amLODIPine 5 MG Tablet PO (19:55)
[2020-07-23] MEDS: Pravastatin 20 MG Tablet PO (19:55)
[2020-07-23] MEDS: Aspirin E.C. 81 MG Tablet PO (19:55)
[2020-07-23 22:00] VITALS: BP 142/90; PULSE 96; RESP 20; TEMP 36.7; O2SAT 96
[2020-07-24] MEDS: Levothyroxine 50 MCG Tablet PO (06:51)
[2020-07-24] MEDS: Enoxaparin 40 MG/0.4 ML Syringe SC (06:51)
[2020-07-24] MEDS: Sodium Chloride 0.65% 1 SPRAY SPRAY.BTL NASAL ×3 (06:51→20:43)
[2020-07-24] MEDS: predniSONE 5 MG Tablet PO (08:11)
[2020-07-24] MEDS: Carvedilol 6.25 MG Tablet PO ×2 (08:11→20:42)
[2020-07-24] MEDS: Calcium Carb/Vitamin D 1 TABLET Tablet PO (08:11)
[2020-07-24] MEDS: Carbamide Peroxide 15 ML Bottle 5 DRP OTIC ×2 (08:12→20:42)
[2020-07-24] MEDS: Fluticasone 0.05% 1 SPRAY NASAL.SRY 2 SPRAY NASAL (08:13)
[2020-07-24] MEDS: Clopidogrel Bisulfate 75 MG Tablet PO (08:13)
[2020-07-24 08:49] VITALS: O2SAT 99
[2020-07-24 10:00] VITALS: BP 144/90; PULSE 91; RESP 20; TEMP 36.7; O2SAT 98
--- NOTE | 2020-07-24 10:41 | NURSING ---
pt ambulated hallways x1 assist with FWW x 150 ft, tolerated well.
[2020-07-24] MEDS: Tamsulosin HCl 0.4 MG Capsule PO (16:25)
[2020-07-24] MEDS: Aspirin E.C. 81 MG Tablet PO (20:42)
[2020-07-24] MEDS: QUEtiapine 25 MG Tablet 12.5 MG PO (20:42)
[2020-07-24] MEDS: amLODIPine 5 MG Tablet PO (20:43)
[2020-07-24] MEDS: Pravastatin 20 MG Tablet PO (20:43)
[2020-07-24 20:51] VITALS: BP 129/68; PULSE 86; RESP 18; TEMP 36.7; O2SAT 99
[2020-07-25 06:04] LABS: Anion Gap 4 (5-15); BUN 16 mg/dL (7-18); BUN/Creat Ratio 14.8 RATIO (10-20); Calcium,Total 8.6 mg/dL (8.5-10.1); Chloride 97 mmol/L (98-107); Creatinine, Serum 1.08 mg/dL (0.70-1.30); EST Glomerular Filtration Rate 71 mL/min (>60); Est Glom Filt Rate - Afr Amer 85 mL/min (>60); Estimated Creatinine Clearance 61.65 ml/min; Glucose 100 mg/dL (74-106); Potassium 4.2 mmol/L (3.5-5.1); Sodium Level 132 mmol/L (136-145)
[2020-07-25] MEDS: Enoxaparin 40 MG/0.4 ML Syringe SC (06:14)
[2020-07-25] MEDS: Levothyroxine 50 MCG Tablet PO (06:14)
[2020-07-25] MEDS: Sodium Chloride 0.65% 1 SPRAY SPRAY.BTL NASAL ×3 (06:14→20:15)
[2020-07-25] MEDS: Calcium Carb/Vitamin D 1 TABLET Tablet PO (07:27)
[2020-07-25] MEDS: Carvedilol 6.25 MG Tablet PO ×2 (07:27→20:00)
[2020-07-25] MEDS: predniSONE 5 MG Tablet PO (07:27)
[2020-07-25] MEDS: Fluticasone 0.05% 1 SPRAY NASAL.SRY 2 SPRAY NASAL (07:27)
[2020-07-25] MEDS: Clopidogrel Bisulfate 75 MG Tablet PO (07:28)
[2020-07-25 07:30] VITALS: BP 154/74; PULSE 85; RESP 20; TEMP 36.7; O2SAT 97
[2020-07-25] MEDS: Carbamide Peroxide 15 ML Bottle 5 DRP OTIC ×2 (09:13→20:00)
[2020-07-25 09:46] VITALS: O2SAT 97
--- NOTE | 2020-07-25 13:14 | PCM.PROGNOTE ---
Patient Problems: Active and Suspected Problems Pneumonia (Acute) Hyponatremia (Acute) Subjective: Afebrile VSS-blood pressures are mildly elevated. Maintaining appropriate oxygen saturation on RA Oral intake is good the past 3 days....... over 2 L each day. Discussed with nursing - no problems that need addressed Reviewed the PT/OT/ST notes Medication list reviewed. All lab was personally reviewed. Sodium is still low at 132 with a chloride of 97. Potassium is 4.2 and the BUN is 16 with a creatinine of 1.08. This is down from 1.29 on 07/22/2020. Calcium is within normal limits. TSH and T4 are within normal limits. Can not rely on cortisol since he was recently on high dose steroids. He tells me that he did not sleep well last night. He gets REYNOLDS and becomes tachypneic. Denies CP, N/V, palpitations. No more nose bleeds. - Physical Exam Vitals/I&O's: Vital Signs Temp Pulse Resp BP Pulse Ox 98.1 F 85 20 H 154/74 H 97 07/25/20 07:30 07/25/20 07:30 07/25/20 07:30 07/25/20 07:30 07/25/20 09:46 Oxygen Flow Rate (L/min) 6 Oxygen Delivery Method Nasal Cannula Weight: 165 lb 2.02 oz Body Mass Index (BMI) 23.4 Intake and Output for Last 24 Hours 07/23/20 07/24/20 07/25/20 23:59 23:59 23:59 Intake Total 2060 / 2300 2370 / 2490 700 / 700 Output Total 1600 / 1900 2000 / 2500 800 / 800 Balance 460 / 400 370 / -10 -100 / -100 General: Alert, Oriented x3, Cooperative, No apparent distress, - - he looks tired today. HEENT: Atraumatic, - - Pupils are equal, round and reactive to light. Extraocular muscles are intact. Oral: Moist Mucosa, No Gingival or Mucosal Lesions/ Ulcerations Neck: Supple, No Nodes, Trachea Midline Lungs: Diminished, Rales - He has coarse crackles in the bases but they are diminished from last week. He has better air exchange in the bases today. There is no rhonchi and no wheezing. He does get tachypneic with exertion and breathing is a little labored but this resolves quickly after sitting down. Cardiovascular: Regular rate, Regular Rhythm, Normal S1, Normal S2, No rub noted, No Gallop, - - Distant heart sounds Abdomen: Bowel Sounds Present, Soft, Non Tender, Non-Distended Extremities: No cyanosis, No edema Skin: No rashes, No breakdown Neurological: Cranial nerves II-XII grossly intact, Neuro grossly intact, - - majority of his deficits post stroke are cognitive. He is very deconitioned as well. He was previously independent in his own home. Psych/Mental Status: Anxious, Flat Affect Laboratory Results 07/25/20 05:29: Sodium 132 L, Potassium 4.2, Chloride 97 L, Carbon Dioxide 31.0, Anion Gap 4 L, BUN 16, Creatinine 1.08, Estim Creat Clear Calc 61.65, Est GFR (MDRD) Af Amer 85, Est GFR (MDRD) Non-Af 71, BUN/Creatinine Ratio 14.8, Glucose 100, Calcium 8.6 Current Medications Acetaminophen (Acetaminophen 325 Mg Tablet) 650 mg PO Q6H PRN PRN PRN Reason: HEADACHE Last Admin: 07/23/20 06:32 Dose: 650 mg Documented by: Albuterol/Ipratropium (Ipratropium/Albuterol Sulfate 3 Ml Ampul.Neb) 3 ml INHALATION Q6H.RT PRN PRN Reason: Wheezing or SOB Amlodipine Besylate (Amlodipine 5 Mg Tablet) 5 mg PO QHS [facility] Last Admin: 07/24/20 20:43 Dose: 5 mg Documented by: Aspirin (Aspirin E.C. 81 Mg Tablet) 81 mg PO QHS [facility] Last Admin: 07/24/20 20:42 Dose: 81 mg Documented by: Bisacodyl (Bisacodyl 10 Mg Suppository) 10 mg RECTAL .PRN X 1 PRN PRN Reason: Constipation Calcium/Vitamin D (Calcium Carb/Vitamin D 1 Tablet Tablet) 1 tablet PO DAILYCM [facility] Last Admin: 07/25/20 07:27 Dose: 1 tablet Documented by: Carbamide Perox/Anhydrous Glycerin (Carbamide Peroxide 15 Ml Bottle) 5 drop OTIC BID [facility] Last Admin: 07/25/20 09:13 Dose: 5 drop Documented by: Carvedilol (Carvedilol 6.25 Mg Tablet) 6.25 mg PO BID [facility] Last Admin: 07/25/20 07:27 Dose: 6.25 mg Documented by: Cholecalciferol (Cholecalciferol (Vit D3) 1,000 Unit (25mcg)) 2,000 unit PO QHS [facility] Last Admin: 07/24/20 20:43 Dose: 2,000 unit Documented by: Clopidogrel Bisulfate (Clopidogrel Bisulfate 75 Mg Tablet) 75 mg PO DAILY [facility] Last Admin: 07/25/20 07:28 Dose: 75 mg Documented by: Emollient Ointment (Emollient Combination No.72 500 Ml Lotion) 1 applic TOPICAL BID [facility]; Protocol Last Admin: 07/25/20 07:29 Dose: 1 applicatio Documented by: Enoxaparin Sodium (Enoxaparin 40 Mg/0.4 Ml Syringe) 40 mg SC DAILY@0600 [facility] Last Admin: 07/25/20 06:14 Dose: 40 mg Documented by: Fluticasone Propionate (Fluticasone 0.05% 1 [place] Nasal.Sry) 2 spray NASAL DAILY [facility] Last Admin: 07/25/20 07:27 Dose: 2 spray Documented by: Haloperidol (Haloperidol 1 Mg Tablet) 1 mg PO TID PRN PRN PRN Reason: agitation/confusion Last Admin: 07/21/20 11:06 Dose: 1 mg Documented by: Levothyroxine Sodium (Levothyroxine 50 Mcg Tablet) 50 mcg PO DAILY@0600 [facility] Last Admin: 07/25/20 06:14 Dose: 50 mcg Documented by: Magnesium Hydroxide (Magnesium Hydroxide 30 Ml Udc) 30 ml PO .PRN X 1 PRN PRN Reason: Constipation Ondansetron HCl (Ondansetron Odt 4 Mg Tablet) 4 mg PO Q6H PRN PRN PRN Reason: NAUSEA Last Admin: 07/19/20 13:16 Dose: 4 mg Documented by: Pravastatin Sodium (Pravastatin 20 Mg Tablet) 20 mg PO QHS [facility] Last Admin: 07/24/20 20:43 Dose: 20 mg Documented by: Prednisone ([facility] 5 Mg Tablet) [facility] Last Admin: 07/25/20 07:27 Dose: 5 mg Documented by: Quetiapine Fumarate (Quetiapine 25 Mg Tablet) 12.5 mg PO DAILY@2000 [facility] Last Admin: 07/24/20 20:42 Dose: 12.5 mg Documented by: Senna/Docusate Sodium (Senna/Docusate Sodium 1 Tablet) 2 tablet PO BID [facility] Last Admin: 07/25/20 07:29 Dose: Not Given Documented by: Sodium Chloride (0.9% Saline Lock 10 Ml Syringe) 10 - 40 ml IV UD PRN PRN Reason: SALINE FLUSH Last Admin: 07/23/20 04:21 Dose: 10 ml Documented by: Sodium Chloride (Sodium Chloride 0.65% 1 [place].Btl) 1 spray NASAL TID [facility] Last Admin: 07/25/20 06:14 Dose: 1 spray Documented by: Tamsulosin HCl (Tamsulosin Hcl 0.4 Mg Capsule) 0.4 mg PO DAILY@1730 [facility] Last Admin: 07/24/20 16:25 Dose: 0.4 mg Documented by: Medical Necessity - Tobacco Use Smoking Status: Never smoker Tobacco Use: Non-smoker Assessment/Plan All Active Problems Pneumonia (Acute) Sepsis (Resolved) Hyponatremia (Acute) Impressions 1. Post stroke debility combined with debility due to recent pneumonia in a patient with chronic lung disease secondary to idiopathic pulmonary fibrosis. 2. Epistaxis-resolved 3. Acute delirium-multifactorial. This has resolved with tapering of steroids and discontinuation of Levaquin. 4. Insomnia - suspect due to anxiety 5. Presbycusis-I suspect that this predates his hospital admission. He likely lip reads and is unable to do this with everyone wearing a mask. I recommended he get a hearing test post discharge. 6. Hyponatremia-etiology? Fractional excretion of sodium is 1% which is not consistent with prerenal azotemia. Creat is better today. Sodium is stable at 132. 7. Orthostatic hypotension-he is currently asymptomatic and the orthostasis has improved with hydration. 8. Urine retention-post void residuals on 07/22/2020 and 07/23/2020 ranged from 275-300. This may be related to Seroquel? Because of the orthostatic hypotension he is not really a candidate for increasing Flomax. Orthostatics in the AM Discontinue the Seroquel at HS. Start Buspar 5 mg BID Add Melatonin 5 mg at HS Recheck post void residuals in the AM Reyes tells me that his brother Adi wants to talk with me and he will be here at 4 PM today......I will talk with him then. I am wondering if Jet should consider assisted living? Will discuss with Ryan. Inpatient E&M: 41672 Subs Hosp L2
[2020-07-25] MEDS: Tamsulosin HCl 0.4 MG Capsule PO (17:18)
[2020-07-25 19:51] VITALS: BP 144/78; PULSE 86; RESP 18; TEMP 36.6; O2SAT 98
[2020-07-25] MEDS: busPIRone 5 MG Tablet PO (19:59)
[2020-07-25] MEDS: Pravastatin 20 MG Tablet PO (20:00)
[2020-07-25] MEDS: Aspirin E.C. 81 MG Tablet PO (20:00)
[2020-07-25] MEDS: MELATONIN 10 MG TABLET 5 MG PO (20:01)
[2020-07-25] MEDS: amLODIPine 5 MG Tablet PO (20:02)
--- NOTE | 2020-07-25 20:15 | NURSING ---
Pt was anxious and asking for nurse for Melatonin. Nurse told pt that Melatonin was scheduled for 2200 and that I was in for assessment. Pt said he was feeling anxious. Assessment completed and meds were provided early so pt could relax and not have rest interrupted.
[2020-07-25 22:00] VITALS: PULSE 86
--- NOTE | 2020-07-26 03:29 | NURSING ---
Pt restless this hs with some anxiety present. Pt awakened several times and calling staff for various needs, including toileting. Staff will continue to monitor. Pt seems to be resting at this time.
[2020-07-26] MEDS: Sodium Chloride 0.65% 1 SPRAY SPRAY.BTL NASAL ×3 (05:20→20:38)
[2020-07-26] MEDS: Enoxaparin 40 MG/0.4 ML Syringe SC (05:20)
[2020-07-26] MEDS: Menthol/Lanolin/Calamine/Znox 113 GM Tube 1 APPLIC TOPICAL ×3 (05:20→20:29)
[2020-07-26] MEDS: Levothyroxine 50 MCG Tablet PO (05:20)
[2020-07-26 05:26] VITALS: BP 134/80; BP 138/77; BP 140/75; PULSE 103; PULSE 74; PULSE 80
[2020-07-26] MEDS: busPIRone 5 MG Tablet PO ×2 (06:37→20:22)
[2020-07-26] MEDS: Fluticasone 0.05% 1 SPRAY NASAL.SRY 2 SPRAY NASAL (07:22)
[2020-07-26] MEDS: Calcium Carb/Vitamin D 1 TABLET Tablet PO (07:22)
[2020-07-26] MEDS: predniSONE 5 MG Tablet PO (07:22)
[2020-07-26] MEDS: Carvedilol 6.25 MG Tablet PO ×2 (07:22→20:30)
[2020-07-26 07:23] VITALS: O2SAT 98
[2020-07-26] MEDS: Clopidogrel Bisulfate 75 MG Tablet PO (07:23)
[2020-07-26] MEDS: Carbamide Peroxide 15 ML Bottle 5 DRP OTIC ×2 (07:23→20:30)
[2020-07-26 08:58] VITALS: BP 140/75; PULSE 74; RESP 17; TEMP 36.8; O2SAT 95
--- NOTE | 2020-07-26 13:04 | CASEMGMT ---
Social Work Spoke with pt's brother about DC options. Pt and brother had discussed pt discharging to [facility] instead of returning home. Pt has no issues with finances. Explained Medicare will not pay for additional time after 08/05, but pt could pay privately if wanted to or can go to SNF. Brother explained pt is on an experimental drug that he supplies and SNFs do not allow pts to bring in their home medications so pt would most likely not choose that option. Pt would like referrals made to [facility] and [facility]. Referrals made. Will continue to follow. Carmelina Hidalgo, EZ PLUMMERW
[2020-07-26] MEDS: Tamsulosin HCl 0.4 MG Capsule PO (17:02)
[2020-07-26 20:19] VITALS: BP 154/82; PULSE 106; RESP 20; TEMP 36.2; O2SAT 92
[2020-07-26] MEDS: Aspirin E.C. 81 MG Tablet PO (20:31)
[2020-07-26] MEDS: MELATONIN 10 MG TABLET 5 MG PO (20:38)
[2020-07-26] MEDS: Pravastatin 20 MG Tablet PO (20:38)
[2020-07-26] MEDS: amLODIPine 5 MG Tablet PO (20:38)
[2020-07-26 22:00] VITALS: PULSE 100
--- NOTE | 2020-07-27 02:25 | NURSING ---
Pt awake in bed and asking about Internet connection for his phone, as he is fidgety. Pt states he can't get back to sleep after toileting. This RN offered and pt accepted a cup of hot decaf tea to assist in relaxation. Staff will continue to monitor.
[2020-07-27] MEDS: Menthol/Lanolin/Calamine/Znox 113 GM Tube 1 APPLIC TOPICAL ×3 (05:55→21:12)
[2020-07-27] MEDS: Levothyroxine 50 MCG Tablet PO (05:56)
[2020-07-27] MEDS: Enoxaparin 40 MG/0.4 ML Syringe SC (05:56)
[2020-07-27] MEDS: Sodium Chloride 0.65% 1 SPRAY SPRAY.BTL NASAL ×3 (05:56→21:10)
[2020-07-27] MEDS: busPIRone 5 MG Tablet PO ×2 (07:38→21:11)
[2020-07-27] MEDS: Carbamide Peroxide 15 ML Bottle 5 DRP OTIC ×2 (07:38→21:13)
[2020-07-27] MEDS: Fluticasone 0.05% 1 SPRAY NASAL.SRY 2 SPRAY NASAL (07:38)
[2020-07-27] MEDS: Calcium Carb/Vitamin D 1 TABLET Tablet PO (07:38)
[2020-07-27] MEDS: predniSONE 5 MG Tablet PO (07:39)
[2020-07-27] MEDS: Carvedilol 6.25 MG Tablet PO ×2 (07:39→21:11)
[2020-07-27] MEDS: Clopidogrel Bisulfate 75 MG Tablet PO (07:40)
[2020-07-27 07:46] VITALS: BP 144/83; PULSE 82; RESP 18; TEMP 36.4; O2SAT 99
--- NOTE | 2020-07-27 13:35 | NURSING ---
THERAPY WORKING WITH PT AND PT C/O SOB. SPO2 89% ON 6L SO INCREASED TO 8L AND SATS 95%. PT HYPERVENTILATING THROUGH MOUTH AND INSTRUCTED SLOW BREATHING THROUGH NOSE. PT STATED, 'IM DONE. AND REQUESTING TO STOP THERAPY AT THIS TIME PT IN WC AND BACK TO ROOM. PERFORMANCE MANAGER IN TO REASSESS
--- NOTE | 2020-07-27 14:49 | NURSING ---
therapy called shoe repairer to room and pt unable to articulate new words but able to answer all mentation questions appropriately. speech clear and no unilateral deficits. vs stable. o2 back down to 6l and sats 95% d.r sementi in at bedside to do neuro exam. no new orders at this time. pt had similar findings and exhibited tia like symptoms with speech on acute side. will monitor for changes. pt in bed resting.
--- NOTE | 2020-07-27 15:54 | NURSING ---
pt aphasia gone now. dr. jurado thinks is another tia that had same symptoms as on acute side. labs and urine to be checked. pt already on approp tx for already.
[2020-07-27 15:59] LABS: Absolute Lymphocyte Count 1.05 X10^3/uL (0.83-4.51); Absolute Neutrophil Count 8.6 X10^3/uL (2.0-7.7); Basophil# 0.03 X10^3/uL; Basophil% 0.3 % (0-1); Eosinophil# 0.08 X10^3/uL; Eosinophils% 0.8 % (0-5); Hematocrit 38.2 % (40-54); Hemoglobin 12.9 g/dL (13.0-16.5); Lymphocyte # 1.05 X10^3/ul (4.0); Lymphocyte % 9.9 % (19-41); Mean Corp Hgb Conc 33.8 g/dL (32-36); Mean Corpuscular Hgb 31.5 pg (27.0-32.0); Mean Corpuscular Volume 93.2 fL (80-94); Mean Platelet Vol. 9.1 fl (6.2-12.0); Monocyte% 6.6 % (0-10); NRBC Flagged by Analyzer 0 % (0-5); Neutrophil # 8.62 X10^3/uL (2.7-7.7); Neutrophil % 81.5 % (47-70); Platelet Count 375 K/mm3 (150-450); RBC Distribution Width CV 12.4 % (11.6-14.6); RBC Distribution Width SD 42.7 fl (35.1-43.9); White Blood Count 10.6 K/mm3 (4.4-11.0)
[2020-07-27 16:00] LABS: Anion Gap 3 (5-15); BUN 18 mg/dL (7-18); BUN/Creat Ratio 18.9 RATIO (10-20); Calcium,Total 8.6 mg/dL (8.5-10.1); Chloride 90 mmol/L (98-107); Creatinine, Serum 0.95 mg/dL (0.70-1.30); EST Glomerular Filtration Rate 82 mL/min (>60); Est Glom Filt Rate - Afr Amer 99 mL/min (>60); Estimated Creatinine Clearance 72.42 ml/min; Glucose 107 mg/dL (74-106); Potassium 4.3 mmol/L (3.5-5.1); Sodium Level 123 mmol/L (136-145)
[2020-07-27] MEDS: Tamsulosin HCl 0.4 MG Capsule PO (17:25)
[2020-07-27] MEDS: Acetaminophen 325 MG Tablet 650 MG PO (17:34)
--- NOTE | 2020-07-27 18:09 | NURSING ---
U/A obtained via straight cath at this time, pt tolerated well, 400mL urine output noted.
[2020-07-27 18:10] LABS: Bacteria 0 SEEN /hpf (None Seen); Mucous, Urine 0 SEEN /hpf (<or=2+); Red Blood Cells-Urine 0 SEEN /hpf (0-5); Squamous Epithelial Cells - UA 0 SEEN /hpf (0-5); White Blood Cells 0 SEEN /hpf (0-5)
[2020-07-27 18:12] LABS: Color, Urine Yellow (Yellow); Glucose, Dipstick Normal (Normal); Ketone-Dipstick Negative (Negative); Leukocyte Esterase-Dipstick Negative /ul (Negative); Nitrite-Dipstick Negative (Negative); Occult Blood-Urine Negative /ul (Negative); Protein-Dipstick Negative (Negative); Urine Bilirubin Dipstick Negative (Negative); Urine Clarity Clear (Clear); Urine Urobilinogen Normal (Normal); Urine pH 6.5 (5.0 - 8.0)
[2020-07-27 19:30] VITALS: BP 160/95; PULSE 87; RESP 18; TEMP 36.8; O2SAT 96
[2020-07-27] MEDS: predniSONE 10 MG Tablet PO (19:38)
[2020-07-27] MEDS: amLODIPine 5 MG Tablet PO (21:10)
[2020-07-27] MEDS: Pravastatin 20 MG Tablet PO (21:10)
[2020-07-27] MEDS: MELATONIN 10 MG TABLET 5 MG PO (21:10)
[2020-07-27] MEDS: Aspirin E.C. 81 MG Tablet PO (21:11)
[2020-07-27] MEDS: Haloperidol 1 MG Tablet PO (21:12)
--- NOTE | 2020-07-27 21:24 | NURSING ---
Addendum entered by Esther Mckeon 07/28/20 00:53: pt was becoming agitated about hs med schedule and obsessive re: meds. Confusion of when meds were due, when pt could have meds. Original Note: pt anxious, fidgety, and restless this hs. Pt unable to settle down to rest. Haldol prn given. Will continue to monitor.
[2020-07-27 22:00] VITALS: PULSE 87; RESP 19
[2020-07-28] MEDS: Enoxaparin 40 MG/0.4 ML Syringe SC (06:21)
[2020-07-28] MEDS: Sodium Chloride 0.65% 1 SPRAY SPRAY.BTL NASAL ×3 (06:21→21:03)
[2020-07-28] MEDS: Levothyroxine 50 MCG Tablet PO (06:22)
[2020-07-28] MEDS: Menthol/Lanolin/Calamine/Znox 113 GM Tube 1 APPLIC TOPICAL ×3 (06:22→21:05)
[2020-07-28] MEDS: busPIRone 5 MG Tablet PO (06:22)
[2020-07-28 07:57] VITALS: O2SAT 98
[2020-07-28] MEDS: Calcium Carb/Vitamin D 1 TABLET Tablet PO (08:16)
[2020-07-28] MEDS: Clopidogrel Bisulfate 75 MG Tablet PO (08:16)
[2020-07-28] MEDS: Carvedilol 6.25 MG Tablet PO ×2 (08:17→21:04)
[2020-07-28] MEDS: predniSONE 5 MG Tablet PO ×2 (08:17→14:21)
[2020-07-28] MEDS: Carbamide Peroxide 15 ML Bottle 5 DRP OTIC (08:17)
[2020-07-28] MEDS: Fluticasone 0.05% 1 SPRAY NASAL.SRY 2 SPRAY NASAL (08:19)
[2020-07-28 09:32] VITALS: BP 143/82; PULSE 82; RESP 18; TEMP 36.5; O2SAT 97
--- NOTE | 2020-07-28 10:06 | CASEMGMT ---
Social Work IDT met with patient and brother via conference call for Team meeting. Discussed patient's progress in therapy. Pt is SBA for transfers, 1 curb step CGA for FWW, ambulating 90 ft with FWW at CGA, but does get SOB and wears O2 continuously. Pt is set up for grooming, UE dressing, Sonido for bathing, SBA for LE dressing. ST working on med management, finances with min cues has 90% accuracy, and working on word finding. Pt continues to express [facility]. [facility] accept [facility], [facility] not have availability and [facility] not contacted [facility]. Pt[facility] choice is [facility] and would like to DC there 08/05. Notified [facility] of FOC. Will Re Team next week prior to DC 08/05. Carmelina Hidalgo, EZ BAUTISTA
--- NOTE | 2020-07-28 13:09 | PCM.PROGNOTE ---
Patient Problems: Active and Suspected Problems Pneumonia (Acute) Hyponatremia (Acute) Subjective: Jet was seen on team rounds today. His brother Adi listened and on the phone and his questions were answered. Afebrile VSS-blood pressure is consistently higher than goal for a patient with TIAs. Goal is generally less than 130/70. The systolic is consistently over 140 and the diastolics consistently over 70. Maintaining appropriate oxygen saturation on RA Oral intake is good Discussed with nursing - he was given Haldol last night rather than Trazodone and he states he slept a little better than usual......still not good. He is still feeling anxious. He denies N/V/abd pain. Reviewed the PT/OT/ST notes. Discussed with ST. Higher level cognitive functioning is definitely impaired Medication list reviewed. [facility] an opening in assisted living and Jet will be going there at discharge. He had a episode yesterday afternoon with confusion. He was alert and oriented X 3. He could name the months backwards with 1` mistake and he was able to count backwards from 10. He was able to follow simple commands. He could not tell me how he was feeling and was having difficulty with word finding. He had fairly intact automatic speech. He had no other focal neurologic deficits. The aphasia resolved in approximately 45 minutes. He had similar episodes while on PCU and CTB showed chronic involutional changes of the brain only. CTA of the head and neck showed patent cranial arteries, patent anterior cervical arteries and right vertebral artery and a 75% stenosis at the origin of the left vertebral artery. MRI showed no acute intracranial abnormality. Consult was obtained with SOC to read an EEG and the impression was moderate generalized background slowing, technically limited study. There were no seizures or definite focal, lateralized or epileptiform abnormalities. He is already taking aspirin and Plavix. Lab was obtained yesterday to rule out metabolic/infectious etiologies of mental status change. White blood cell count and platelets were within normal limits. The hemoglobin was 12.9 and stable. Sodium was 123, down from 132 on 07/25/2020. BUN was 18 and the creatinine had improved to 0.95. Glucose was 107. UA showed 0 WBCs and 0 RBCs per high-power field. - Physical Exam Vitals/I&O's: Vital Signs Temp Pulse Resp BP Pulse Ox 97.7 F L 82 18 143/82 H 97 07/28/20 09:32 07/28/20 09:32 07/28/20 09:32 07/28/20 09:32 07/28/20 09:32 Oxygen Flow Rate (L/min) 6 Oxygen Delivery Method Nasal Cannula Weight: 170 lb 10.205 oz Body Mass Index (BMI) 23.4 Orthostatic Vital Signs Start: 07/19/20 06:08 Freq: Status: Active Protocol: Activity Type Activity Date Activity User E-Sign Co-Sign Detail Recorded Client Recorded Date Recorded By Document 07/26/20 05:26 WHIT [id number] 07/26/20 05:28 CAK 07/26/20 05:26 Orthostatic Vitals Standing -Blood Pressure (90/60-120/80 mm Hg) 138/77 H -Extremity Use Left Arm -Pulse Rate (60-100 beats/min) 103 H Sitting -Blood Pressure (90/60-120/80 mm Hg) 134/80 H -Extremity Use Left Arm -Pulse Rate (60-100 beats/min) 80 Lying -Blood Pressure (90/60-120/80 mm Hg) 140/75 H -Extremity Use Left Arm -Pulse Rate (60-100 beats/min) 74 Intake and Output for Last 24 Hours 07/26/20 07/27/20 07/28/20 23:59 23:59 23:59 Intake Total 1979 / 1979 1740 / 1740 1520 / 1520 Output Total 2600 / 2600 1850 / 1850 600 / 600 Balance -620 / -620 -110 / -110 920 / 920 General: Alert, Oriented x3, Cooperative, - - Still having a little trouble word finding. HEENT: Atraumatic, EOMI, - - Pupils are equal round and reactive to light Oral: Dry Mucosa Neck: Supple, No Nodes, No Nuchal Rigidity, Trachea Midline Lungs: Diminished, Rales - In the bases, - - No conversational dyspnea at rest and he is not tachypneic at rest. He becomes tachypneic with labored respirations with exertion. Cardiovascular: Regular rate, Regular Rhythm, Normal S1, Normal S2, No Gallop Abdomen: Bowel Sounds Present, Soft, Non Tender, Non-Distended Extremities: No edema, No Calf Tenderness Skin: No rashes, No breakdown Neurological: Cranial nerves II-XII grossly intact, Neuro grossly intact - except for mild trouble word finding....better than yesterday and this seems to come and go.......the hyponatremia is likely contributing to this. He has no tremors and he is appropriate today., - - no dysarthria Psych/Mental Status: Appropriate, Anxious Microbiology Past 72 Hours 07/25/20 14:00 Mucosa - Nasopharyngeal - Final Laboratory Results 07/27/20 15:41: WBC 10.6, RBC 4.10 L, Hgb 12.9 L, Hct 38.2 L, MCV 93.2, MCH 31.5, MCHC 33.8, RDW Std Deviation 42.7, RDW Coeff of Araseli 12.4, Plt Count 375, MPV 9.1, Immature Gran % (Auto) 0.900, Neut % (Auto) 81.5 H, Lymph % (Auto) 9.9 L, [place] % (Auto) 6.6, Eos % (Auto) 0.8, Baso % (Auto) 0.3, Absolute Neuts (auto) 8.6 H, Absolute Lymphs (auto) 1.05, Nucleated RBC % 0 07/27/20 15:41: Sodium 123 L, Potassium 4.3, Chloride 90 L, Carbon Dioxide 30.0, Anion Gap 3 L, BUN 18, Creatinine 0.95, Estim Creat Clear Calc 72.42, Est GFR (MDRD) Af Amer 99, Est GFR (MDRD) Non-Af 82, BUN/Creatinine Ratio 18.9, Glucose 107 H, Calcium 8.6 07/27/20 18:03: Urine Color Yellow, Urine Clarity Clear, Urine pH 6.5, Ur Specific [place] 1.010, Urine Protein Negative, Urine Glucose (UA) Normal, Urine Ketones Negative, Urine Occult Blood Negative, Urine Nitrite Negative, Urine Bilirubin Negative, Urine Urobilinogen Normal, Ur Leukocyte Esterase Negative, Urine RBC 0 SEEN, Urine WBC 0 SEEN, Ur Squamous Epith Cells 0 SEEN, Urine Bacteria 0 SEEN, Urine Mucus 0 SEEN Current Medications Acetaminophen (Acetaminophen 325 Mg Tablet) 650 mg PO Q6H PRN PRN PRN Reason: HEADACHE Last Admin: 07/27/20 17:34 Dose: 650 mg Documented by: Albuterol/Ipratropium (Ipratropium/Albuterol Sulfate 3 Ml Ampul.Neb) 3 ml INHALATION Q6H.RT PRN PRN Reason: Wheezing or SOB Amlodipine Besylate (Amlodipine 10 Mg Tablet) 10 mg PO QHS [facility] Aspirin (Aspirin E.C. 81 Mg Tablet) 81 mg PO QHS [facility] Last Admin: 07/27/20 21:11 Dose: 81 mg Documented by: Bisacodyl (Bisacodyl 10 Mg Suppository) 10 mg RECTAL .PRN X 1 PRN PRN Reason: Constipation Buspirone HCl (Buspirone 5 Mg Tablet) 5 mg PO 0700,2100 [facility] Last Admin: 07/28/20 06:22 Dose: 5 mg Documented by: Calamine/Phenol (Menthol/Lanolin/Calamine/Znox 113 Gm Tube) 1 applic TOPICAL TID [facility]; Protocol Last Admin: 07/28/20 06:22 Dose: 1 applicatio Documented by: Calcium/Vitamin D (Calcium Carb/Vitamin D 1 Tablet Tablet) [facility] Last Admin: 07/28/20 08:16 Dose: 1 tablet Documented by: Carvedilol (Carvedilol 6.25 Mg Tablet) 6.25 mg PO BID [facility] Last Admin: 07/28/20 08:17 Dose: 6.25 mg Documented by: Cholecalciferol (Cholecalciferol (Vit D3) 1,000 Unit (25mcg)) 2,000 unit PO QHS [facility] Last Admin: 07/27/20 21:10 Dose: 2,000 unit Documented by: Clopidogrel Bisulfate (Clopidogrel Bisulfate 75 Mg Tablet) 75 mg PO DAILY [facility] Last Admin: 07/28/20 08:16 Dose: 75 mg Documented by: Emollient Ointment (Emollient Combination No.72 500 Ml Lotion) 1 applic TOPICAL BID [facility]; Protocol Last Admin: 07/28/20 08:18 Dose: Not Given Documented by: Enoxaparin Sodium (Enoxaparin 40 Mg/0.4 Ml Syringe) 40 mg SC DAILY@0600 [facility] Last Admin: 07/28/20 06:21 Dose: 40 mg Documented by: Fluticasone Propionate (Fluticasone 0.05% 1 [place] Nasal.Sry) 2 spray NASAL DAILY [facility] Last Admin: 07/28/20 08:19 Dose: 2 spray Documented by: Haloperidol (Haloperidol 1 Mg Tablet) 1 mg PO TID PRN PRN PRN Reason: agitation/confusion Last Admin: 07/27/20 21:12 Dose: 1 mg Documented by: Sodium Chloride () 1,000 mls @ 100 mls/hr IV .Q10H [facility] Stop: 07/29/20 07:29 Levothyroxine Sodium (Levothyroxine 50 Mcg Tablet) 50 mcg PO DAILY@0600 [facility] Last Admin: 07/28/20 06:22 Dose: 50 mcg Documented by: Magnesium Hydroxide (Magnesium Hydroxide 30 Ml Udc) 30 ml PO .PRN X 1 PRN PRN Reason: Constipation Melatonin (Melatonin 10 Mg Tablet) 5 mg PO QHS [facility] Last Admin: 07/27/20 21:10 Dose: 5 mg Documented by: Ondansetron HCl (Ondansetron Odt 4 Mg Tablet) 4 mg PO Q6H PRN PRN PRN Reason: NAUSEA Last Admin: 07/19/20 13:16 Dose: 4 mg Documented by: Pravastatin Sodium (Pravastatin 20 Mg Tablet) 20 mg PO QHS [facility] Last Admin: 07/27/20 21:10 Dose: 20 mg Documented by: Prednisone (Prednisone 5 Mg Tablet) 5 mg PO 0800,1500 [facility] Senna/Docusate Sodium (Senna/Docusate Sodium 1 Tablet) 2 tablet PO BID [facility] Last Admin: 07/28/20 08:18 Dose: Not Given Documented by: Sodium Chloride (0.9% Saline Lock 10 Ml Syringe) 10 - 40 ml IV UD PRN PRN Reason: SALINE FLUSH Last Admin: 07/23/20 04:21 Dose: 10 ml Documented by: Sodium Chloride (Sodium Chloride 0.65% 1 [place].Btl) 1 spray NASAL TID [facility] Last Admin: 07/28/20 06:21 Dose: 1 spray Documented by: Tamsulosin HCl (Tamsulosin Hcl 0.4 Mg Capsule) 0.4 mg PO DAILY@1730 [facility] Last Admin: 07/27/20 17:25 Dose: 0.4 mg Documented by: Trazodone HCl (Trazodone 50 Mg Tablet) 50 mg PO QHS [facility] Medical Necessity - Tobacco Use Smoking Status: Never smoker Tobacco Use: Non-smoker Assessment/Plan All Active Problems Pneumonia (Acute) Sepsis (Resolved) Hyponatremia (Acute) Impressions 1. Post stroke debility combined with debility due to recent pneumonia in a patient with chronic lung disease secondary to idiopathic pulmonary fibrosis. 2. Epistaxis-resolved 3. Acute delirium-multifactorial. This has resolved with tapering of steroids and discontinuation of Levaquin. 4. Insomnia - suspect due to anxiety 5. Presbycusis-I suspect that this predates his hospital admission. He likely lip reads and is unable to do this with everyone wearing a mask. I recommended he get a hearing test post discharge. 6. Hyponatremia- I suspect this is due to adrenal insufficiency today for it to have dropped from 132 to 123 in 48 hours. RAJAT since the creat is better. FENA recently was 1%. 7. Orthostatic hypotension-resolved 8. Urine retention-post void residuals on 07/22/2020 and 07/23/2020 ranged from 275-300. This may be related to Seroquel? Because of the orthostatic hypotension he is not really a candidate for increasing Flomax. 9. Metabolic encephalopathy due to hyponatremia 9. TIA's - I suspect he had a stroke while on PCU because the aphasia lasted for a significant time. This is the only thing I have to explain the rapid decline in his higher level/executive functioning. 10. uncontrolled HTN - goal in a pt with CVA/TIA's is < 130/70 Continue Plavix and ASA Add high intensity statin Increase the Norvasc to 10 mg to manage the BP's that are above goal Increase the Buspar for better anxiety control IV NS - 2 L Recheck the BMP in the AM Lipid panel and liver panel in 6-8 weeks Taper the prednisone slowly. If the sodium is not improved in the AM will order a Cortrosyn Stim test Inpatient E&M: 74062 Init Hosp L3
[2020-07-28] MEDS: 0.9% Normal Saline 1,000 ML 100 ML IV ×2 (14:20→22:53)
[2020-07-28] MEDS: Tamsulosin HCl 0.4 MG Capsule PO (17:36)
[2020-07-28 19:19] VITALS: BP 148/82; PULSE 79; RESP 18; TEMP 36.9; O2SAT 98
[2020-07-28] MEDS: amLODIPine 10 MG Tablet PO (21:03)
[2020-07-28] MEDS: MELATONIN 10 MG TABLET 5 MG PO (21:03)
[2020-07-28] MEDS: Senna/Docusate Sodium 1 Tablet 2 TABLET PO (21:03)
[2020-07-28] MEDS: Pravastatin 20 MG Tablet PO (21:03)
[2020-07-28] MEDS: traZODone 50 MG Tablet PO (21:04)
[2020-07-28] MEDS: Aspirin E.C. 81 MG Tablet PO (21:04)
[2020-07-28] MEDS: busPIRone 5 MG Tablet 10 MG PO (21:05)
[2020-07-29 06:04] LABS: Anion Gap 6 (5-15); BUN 14 mg/dL (7-18); BUN/Creat Ratio 16.3 RATIO (10-20); Chloride 97 mmol/L (98-107); Creatinine, Serum 0.86 mg/dL (0.70-1.30); EST Glomerular Filtration Rate 92 mL/min (>60); Est Glom Filt Rate - Afr Amer 111 mL/min (>60); Glucose 89 mg/dL (74-106); Potassium 4.1 mmol/L (3.5-5.1); Sodium Level 131 mmol/L (136-145)
[2020-07-29 06:47] VITALS: O2SAT 97
[2020-07-29] MEDS: Enoxaparin 40 MG/0.4 ML Syringe SC (06:58)
[2020-07-29] MEDS: Menthol/Lanolin/Calamine/Znox 113 GM Tube 1 APPLIC TOPICAL ×3 (06:58→22:03)
[2020-07-29] MEDS: Sodium Chloride 0.65% 1 SPRAY SPRAY.BTL NASAL ×3 (06:58→22:02)
[2020-07-29] MEDS: busPIRone 5 MG Tablet PO ×2 (06:58→12:02)
[2020-07-29] MEDS: Levothyroxine 50 MCG Tablet PO (06:58)
[2020-07-29] MEDS: Clopidogrel Bisulfate 75 MG Tablet PO (07:44)
[2020-07-29] MEDS: Carvedilol 6.25 MG Tablet PO ×2 (07:44→22:01)
[2020-07-29] MEDS: Calcium Carb/Vitamin D 1 TABLET Tablet PO (07:44)
[2020-07-29] MEDS: predniSONE 5 MG Tablet PO ×2 (07:44→15:03)
[2020-07-29] MEDS: Fluticasone 0.05% 1 SPRAY NASAL.SRY 2 SPRAY NASAL (07:45)
[2020-07-29 10:00] VITALS: BP 148/79; PULSE 79; RESP 12; TEMP 36.6; O2SAT 97
--- NOTE | 2020-07-29 14:46 | PN_ITS ---
Patient Problems: Active and Suspected Problems Pneumonia (Acute) Hyponatremia (Acute) Subjective: Afebrile VSS-blood pressures remain mildly elevated but the amlodipine was just increased to 10 mg nightly from 5 mg nightly yesterday. We will continue to monitor. Maintaining appropriate oxygen saturation a 6 L nasal cannula at rest. He has had no further epistaxis. He does get increasing shortness of breath with even minimal exertion but does better when the oxygen is increased to 8 L/min with exercise. Oral intake is good Discussed with nursing - no problems that need addressed Reviewed the PT/OT/ST notes Medication list reviewed. Jet said that he slept better last night with the trazodone and he feels more rested today. He also feels less anxious and thinks the BuSpar is helping. He denies any nausea/vomiting/abdominal pain. He does not have diarrhea. I noticed that when I am talking to him and he is eating he coughs more. I told him to slow down and swallow all food in his mouth prior to talking. I also mentioned this to ST and they will reassess his swallowing. All lab was personally reviewed. The sodium is 131 today, up from 123 on 102 2:20 liters of normal saline and increase in the prednisone to 5 mg twice daily due to suspected adrenal insufficiency. Potassium is 4.1 today and the BUN is down to 14 with a creatinine of 0.86 which continues to improve. Calcium is low at 8.0 today and a albumin level has been ordered to correct for possible hypoalbuminemia. - Physical Exam Vitals/I&O's: Vital Signs Temp Pulse Resp BP Pulse Ox 97.9 F 79 12 148/79 H 97 07/29/20 10:07/29/20 10:00 07/29/20 10:00 07/29/20 10:00 07/29/20 10:00 Oxygen Flow Rate (L/min) 6 Oxygen Delivery Method Nasal Cannula Weight: 163 lb 2.273 oz Body Mass Index (BMI) 23.4 Orthostatic Vital Signs Start: 07/19/20 06:08 Freq: Status: Active Protocol: Activity Type Activity Date Activity User E-Sign Co-Sign Detail Recorded Client Recorded Date Recorded By Document 07/26/20 05:26 CAK [id number] 07/26/20 05:28 CAK 07/26/20 05:26 Orthostatic Vitals Standing -Blood Pressure (90/60-120/80 mm Hg) 138/77 H -Extremity Use Left Arm -Pulse Rate (60-100 beats/min) 103 H Sitting -Blood Pressure (90/60-120/80 mm Hg) 134/80 H -Extremity Use Left Arm -Pulse Rate (60-100 beats/min) 80 Lying -Blood Pressure (90/60-120/80 mm Hg) 140/75 H -Extremity Use Left Arm -Pulse Rate (60-100 beats/min) 74 Intake and Output for Last 24 Hours 07/27/20 07/28/20 07/29/20 23:59 23:59 23:59 Intake Total 1740 / 1740 3923.33 / 3923.33 1750 / 1750 Output Total 1850 / 1850 2200 / 2200 4300 / 4300 Balance -110 / -110 1723.33 / 1723.33 -2550 / -2550 General: Alert, Oriented x3, Cooperative, - - He looks better today....more rested and more able to focus on conversation. He was not searching for words today when talking to me. HEENT: PERRLA, EOMI Oral: Moist Mucosa Neck: No JVD, Trachea Midline Lungs: Diminished, Rales - Coarse Rales in the bases bilaterally-unchanged, - - He is not tachypneic at rest and does not have conversational dyspnea. He was less short of breath when the oxygen was increased to 8 L/min while exercising today. Cardiovascular: Regular rate, Regular Rhythm, Normal S1, Normal S2, - - Distant heart sounds, vertical heart Abdomen: Bowel Sounds Present, Soft, Non Tender, Non-Distended Extremities: No edema, No Calf Tenderness Skin: No rashes, No breakdown Neurological: Cranial nerves II-XII grossly intact, Neuro grossly intact Laboratory Results 07/29/20 05:38: Sodium 131 L, Potassium 4.1, Chloride 97 L, Carbon Dioxide 28.0, Anion Gap 6, BUN 14, Creatinine 0.86, Estim Creat Clear Calc 80.00, Est GFR (MDRD) Af Amer 111, Est GFR (MDRD) Non-Af 92, BUN/Creatinine Ratio 16.3, Glucose 89, Calcium 8.0 L Current Medications Acetaminophen (Acetaminophen 325 Mg Tablet) 650 mg PO Q6H PRN PRN PRN Reason: HEADACHE Last Admin: 07/27/20 17:34 Dose: 650 mg Documented by: Albuterol/Ipratropium (Ipratropium/Albuterol Sulfate 3 Ml Ampul.Neb) 3 ml INHALATION Q6H.RT PRN PRN Reason: Wheezing or SOB Amlodipine Besylate (Amlodipine 10 Mg Tablet) 10 mg PO QHS [facility] Last Admin: 07/28/20 21:03 Dose: 10 mg Documented by: Aspirin (Aspirin E.C. 81 Mg Tablet) 81 mg PO QHS [facility] Last Admin: 07/28/20 21:04 Dose: 81 mg Documented by: Bisacodyl (Bisacodyl 10 Mg Suppository) 10 mg RECTAL .PRN X 1 PRN PRN Reason: Constipation Buspirone HCl (Buspirone 5 Mg Tablet) 5 mg PO 0700,1300 [facility] Last Admin: 07/29/20 12:02 Dose: 5 mg Documented by: Buspirone HCl (Buspirone 5 Mg Tablet) 10 mg PO 2100 [facility] Last Admin: 07/28/20 21:05 Dose: 10 mg Documented by: Calamine/Phenol (Menthol/Lanolin/Calamine/Znox 113 Gm Tube) 1 applic TOPICAL TID [facility]; Protocol Last Admin: 07/29/20 06:58 Dose: 1 applicatio Documented by: Calcium/Vitamin D (Calcium Carb/Vitamin D 1 Tablet Tablet) [facility] Last Admin: 07/29/20 07:44 Dose: 1 tablet Documented by: Carvedilol (Carvedilol 6.25 Mg Tablet) 6.25 mg PO BID [facility] Last Admin: 07/29/20 07:44 Dose: 6.25 mg Documented by: Cholecalciferol (Cholecalciferol (Vit D3) 1,000 Unit (25mcg)) 2,000 unit PO QHS [facility] Last Admin: 07/28/20 21:02 Dose: 2,000 unit Documented by: Clopidogrel Bisulfate (Clopidogrel Bisulfate 75 Mg Tablet) 75 mg PO DAILY [facility] Last Admin: 07/29/20 07:44 Dose: 75 mg Documented by: Emollient Ointment (Emollient Combination No.72 500 Ml Lotion) 1 applic TOPICAL BID [facility]; Protocol Last Admin: 07/29/20 07:46 Dose: 1 applicatio Documented by: Enoxaparin Sodium (Enoxaparin 40 Mg/0.4 Ml Syringe) 40 mg SC DAILY@0600 [facility] Last Admin: 07/29/20 06:58 Dose: 40 mg Documented by: Fluticasone Propionate (Fluticasone 0.05% 1 [place] Nasal.Sry) 2 spray NASAL DAILY [facility] Last Admin: 07/29/20 07:45 Dose: 2 spray Documented by: Haloperidol (Haloperidol 1 Mg Tablet) 1 mg PO TID PRN PRN PRN Reason: agitation/confusion Last Admin: 07/27/20 21:12 Dose: 1 mg Documented by: Levothyroxine Sodium (Levothyroxine 50 Mcg Tablet) 50 mcg PO DAILY@0600 [facility] Last Admin: 07/29/20 06:58 Dose: 50 mcg Documented by: Magnesium Hydroxide (Magnesium Hydroxide 30 Ml Udc) 30 ml PO .PRN X 1 PRN PRN Reason: Constipation Melatonin (Melatonin 10 Mg Tablet) 5 mg PO QHS [facility] Last Admin: 07/28/20 21:03 Dose: 5 mg Documented by: Ondansetron HCl (Ondansetron Odt 4 Mg Tablet) 4 mg PO Q6H PRN PRN PRN Reason: NAUSEA Last Admin: 07/19/20 13:16 Dose: 4 mg Documented by: Pravastatin Sodium (Pravastatin 20 Mg Tablet) 20 mg PO QHS [facility] Last Admin: 07/28/20 21:03 Dose: 20 mg Documented by: Prednisone (Prednisone 5 Mg Tablet) 5 mg PO 0800,1500 [facility] Last Admin: 07/29/20 07:44 Dose: 5 mg Documented by: Senna/Docusate Sodium (Senna/Docusate Sodium 1 Tablet) 2 tablet PO BID [facility] Last Admin: 07/29/20 07:45 Dose: Not Given Documented by: Sodium Chloride (0.9% Saline Lock 10 Ml Syringe) 10 - 40 ml IV UD PRN PRN Reason: SALINE FLUSH Last Admin: 07/23/20 04:21 Dose: 10 ml Documented by: Sodium Chloride (Sodium Chloride 0.65% 1 [place].Btl) 1 spray NASAL TID [facility] Last Admin: 07/29/20 06:58 Dose: 1 spray Documented by: Tamsulosin HCl (Tamsulosin Hcl 0.4 Mg Capsule) 0.4 mg PO DAILY@1730 [facility] Last Admin: 07/28/20 17:36 Dose: 0.4 mg Documented by: Trazodone HCl (Trazodone 50 Mg Tablet) 50 mg PO QHS [facility] Last Admin: 07/28/20 21:04 Dose: 50 mg Documented by: Medical Necessity - Tobacco Use Smoking Status: Never smoker Tobacco Use: Non-smoker Assessment/Plan All Active Problems Pneumonia (Acute) Sepsis (Resolved) Hyponatremia (Acute) Impressions 1. Post stroke debility combined with debility due to recent pneumonia in a patient with chronic lung disease secondary to idiopathic pulmonary fibrosis. 2. Epistaxis-resolved 3. Acute delirium-multifactorial. This has resolved with tapering of steroids and discontinuation of Levaquin. 4. Insomnia - suspect due to anxiety 5. Presbycusis-I suspect that this predates his hospital admission. He likely lip reads and is unable to do this with everyone wearing a mask. I recommended he get a hearing test post discharge. 6. Hyponatremia- I suspect this is due to adrenal insufficiency today for it to have dropped from 132 to 123 in 48 hours. RAJAT since the creat is better. FENA recently was 1%. The sodium increased to 131 with an increase in the Prednisone to 5 mg BID and 2 liters of NS. 7. Orthostatic hypotension-resolved 8. Urine retention-post void residuals on 07/22/2020 and 07/23/2020 ranged from 275-300. This may be related to Seroquel? Because of the orthostatic hypotens ion he is not really a candidate for increasing Flomax. Seroquel was discontinued and he denies feeling like he is retaining. 9. Metabolic encephalopathy due to hyponatremia - better with the increase in the sodium to 131 9. TIA's - I suspect he had a stroke while on PCU because the aphasia lasted for a significant time and so did the confusion. This is the only thing I have to explain the rapid decline in his higher level/executive functioning. 10. uncontrolled HTN - goal in a pt with CVA/TIA's is < 130/70 Continue the increased dose of Norvasc and continue to monitor blood pressure Recheck a BMP on Saturday to ensure that the sodium stays up. Will need to gradually taper prednisone back to 5 mg daily. He may have chronic hyponatremia and this may be related to SIADH related to his chronic lung disease. When he was first admitted to the hospital his sodium was within normal limits however he was dehydrated at the time and his creatinine was 1.43. When he was hydrated the sodium dropped to the low 130s. We will arrange an appt for Jet with Dr. Pereira or Dr. Batista following DC due to hearing difficulty. When I leonora back 8 feet and take my mask off he hears better and I think he lip reads Jet and I talked about palliative care and what services they provide. I stress I think he would benefit from there services for sx management. He would like to talk with them. I called palliative care but, the PROJECTION ENGINEER's are all currently at home working since 1 of them tested + for COvid recently and they all work in close proximity. If they are not able to see him in his room during his stay in rehab then maybe we can arrange a face time meeting with the IPAD. Overall he is now more calm, he is starting to sleep better and he is doing well with therapy. He continues to make progress. Inpatient E&M: 53083 Subs Hosp L2
[2020-07-29 15:48] LABS: Albumin, Serum 2.8 g/dL (3.2-5.0)
[2020-07-29] MEDS: Tamsulosin HCl 0.4 MG Capsule PO (17:06)
[2020-07-29 22:00] VITALS: BP 162/81; PULSE 79; RESP 16; TEMP 36.7; O2SAT 98
[2020-07-29] MEDS: busPIRone 5 MG Tablet 10 MG PO (22:01)
[2020-07-29] MEDS: traZODone 50 MG Tablet PO (22:01)
[2020-07-29] MEDS: Aspirin E.C. 81 MG Tablet PO (22:01)
[2020-07-29] MEDS: amLODIPine 10 MG Tablet PO (22:02)
[2020-07-29] MEDS: MELATONIN 10 MG TABLET 5 MG PO (22:02)
[2020-07-29] MEDS: Pravastatin 20 MG Tablet PO (22:02)
[2020-07-30] MEDS: Enoxaparin 40 MG/0.4 ML Syringe SC (05:08)
[2020-07-30] MEDS: Menthol/Lanolin/Calamine/Znox 113 GM Tube 1 APPLIC TOPICAL ×3 (05:08→20:45)
[2020-07-30] MEDS: Sodium Chloride 0.65% 1 SPRAY SPRAY.BTL NASAL ×3 (05:08→20:40)
[2020-07-30] MEDS: Levothyroxine 50 MCG Tablet PO (05:09)
[2020-07-30] MEDS: Carvedilol 6.25 MG Tablet PO ×2 (07:37→20:38)
[2020-07-30] MEDS: Calcium Carb/Vitamin D 1 TABLET Tablet PO (07:37)
[2020-07-30] MEDS: Clopidogrel Bisulfate 75 MG Tablet PO (07:37)
[2020-07-30] MEDS: predniSONE 5 MG Tablet PO ×2 (07:37→14:25)
[2020-07-30] MEDS: busPIRone 5 MG Tablet PO ×2 (07:37→12:51)
[2020-07-30] MEDS: Senna/Docusate Sodium 1 Tablet 2 TABLET PO ×2 (07:38→20:35)
[2020-07-30] MEDS: Fluticasone 0.05% 1 SPRAY NASAL.SRY 2 SPRAY NASAL (07:38)
[2020-07-30 07:45] VITALS: BP 136/67; PULSE 74; RESP 18; TEMP 36.4; O2SAT 100
[2020-07-30 08:30] VITALS: O2SAT 96
[2020-07-30 08:59] VITALS: O2SAT 100
[2020-07-30] MEDS: Tamsulosin HCl 0.4 MG Capsule PO (17:22)
[2020-07-30] MEDS: 0.9% Saline Lock 10 ML Syringe IV ×2 (18:30→20:40)
[2020-07-30 19:10] VITALS: BP 150/76; PULSE 83; RESP 20; TEMP 36.4; O2SAT 96
[2020-07-30] MEDS: Pravastatin 20 MG Tablet PO (20:36)
[2020-07-30] MEDS: amLODIPine 10 MG Tablet PO (20:36)
[2020-07-30] MEDS: MELATONIN 10 MG TABLET 5 MG PO (20:37)
[2020-07-30] MEDS: Aspirin E.C. 81 MG Tablet PO (20:37)
[2020-07-30] MEDS: traZODone 50 MG Tablet PO (20:38)
[2020-07-30] MEDS: busPIRone 5 MG Tablet 10 MG PO (20:39)
[2020-07-31] MEDS: Levothyroxine 50 MCG Tablet PO (06:43)
[2020-07-31] MEDS: busPIRone 5 MG Tablet PO ×2 (06:43→12:14)
[2020-07-31] MEDS: Enoxaparin 40 MG/0.4 ML Syringe SC (06:44)
[2020-07-31] MEDS: Sodium Chloride 0.65% 1 SPRAY SPRAY.BTL NASAL ×3 (06:44→20:53)
[2020-07-31 08:00] VITALS: BP 127/69; PULSE 74; RESP 18; TEMP 36.6; O2SAT 99
[2020-07-31] MEDS: Clopidogrel Bisulfate 75 MG Tablet PO (08:30)
[2020-07-31] MEDS: predniSONE 5 MG Tablet PO ×2 (08:30→14:34)
[2020-07-31] MEDS: Calcium Carb/Vitamin D 1 TABLET Tablet PO (08:31)
[2020-07-31] MEDS: Carvedilol 6.25 MG Tablet PO ×2 (08:31→20:52)
[2020-07-31] MEDS: Senna/Docusate Sodium 1 Tablet 2 TABLET PO ×2 (08:32→20:54)
[2020-07-31] MEDS: Fluticasone 0.05% 1 SPRAY NASAL.SRY 2 SPRAY NASAL (08:34)
[2020-07-31 09:49] VITALS: O2SAT 97
[2020-07-31 10:00] VITALS: RESP 20
--- NOTE | 2020-07-31 11:00 | NURSING ---
up and ambulated around halls with walker and standby assist.
[2020-07-31] MEDS: Tamsulosin HCl 0.4 MG Capsule PO (17:28)
[2020-07-31] MEDS: 0.9% Saline Lock 10 ML Syringe IV (18:24)
[2020-07-31 19:26] VITALS: BP 145/84; PULSE 80; RESP 20; TEMP 36.3; O2SAT 100
[2020-07-31 20:50] VITALS: PULSE 80; RESP 20
[2020-07-31] MEDS: busPIRone 5 MG Tablet 10 MG PO (20:51)
[2020-07-31] MEDS: traZODone 50 MG Tablet PO (20:52)
[2020-07-31] MEDS: MELATONIN 10 MG TABLET 5 MG PO (20:52)
[2020-07-31] MEDS: amLODIPine 10 MG Tablet PO (20:52)
[2020-07-31] MEDS: Pravastatin 20 MG Tablet PO (20:52)
[2020-07-31] MEDS: Aspirin E.C. 81 MG Tablet PO (20:52)
[2020-07-31] MEDS: Menthol/Lanolin/Calamine/Znox 113 GM Tube 1 APPLIC TOPICAL (20:55)
--- NOTE | 2020-08-01 04:39 | NURSING ---
REVIEWED AND AGREE WITH MACHINE TURNER'S FUNCTIONAL ASSESSMENT AND HANDOFF CHARTING.
[2020-08-01 06:18] LABS: Anion Gap 4 (5-15); BUN 17 mg/dL (7-18); BUN/Creat Ratio 15.6 RATIO (10-20); Calcium,Total 8.9 mg/dL (8.5-10.1); Chloride 97 mmol/L (98-107); Creatinine, Serum 1.09 mg/dL (0.70-1.30); EST Glomerular Filtration Rate 70 mL/min (>60); Est Glom Filt Rate - Afr Amer 85 mL/min (>60); Glucose 95 mg/dL (74-106); Potassium 4.1 mmol/L (3.5-5.1); Sodium Level 133 mmol/L (136-145)
[2020-08-01] MEDS: Levothyroxine 50 MCG Tablet PO (06:37)
[2020-08-01] MEDS: Enoxaparin 40 MG/0.4 ML Syringe SC (06:37)
[2020-08-01] MEDS: Sodium Chloride 0.65% 1 SPRAY SPRAY.BTL NASAL ×3 (06:37→21:04)
[2020-08-01] MEDS: Menthol/Lanolin/Calamine/Znox 113 GM Tube 1 APPLIC TOPICAL ×3 (06:46→21:05)
[2020-08-01] MEDS: busPIRone 5 MG Tablet PO ×2 (07:07→12:05)
[2020-08-01] MEDS: 0.9% Saline Lock 10 ML Syringe IV (07:10)
[2020-08-01] MEDS: Calcium Carb/Vitamin D 1 TABLET Tablet PO (07:29)
[2020-08-01] MEDS: Fluticasone 0.05% 1 SPRAY NASAL.SRY 2 SPRAY NASAL (07:30)
[2020-08-01] MEDS: Carvedilol 6.25 MG Tablet PO ×2 (07:30→21:05)
[2020-08-01] MEDS: predniSONE 5 MG Tablet PO ×2 (07:30→15:30)
[2020-08-01] MEDS: Clopidogrel Bisulfate 75 MG Tablet PO (07:30)
[2020-08-01] MEDS: Senna/Docusate Sodium 1 Tablet 2 TABLET PO (07:31)
[2020-08-01 09:24] VITALS: BP 139/69; PULSE 71; RESP 20; TEMP 36.7; O2SAT 96
--- NOTE | 2020-08-01 13:31 | PCM.PROGNOTE ---
Patient Problems: Active and Suspected Problems Pneumonia (Acute) Hyponatremia (Acute) Subjective: Afebrile VSS-blood pressures have come down somewhat with increase in the Norvasc to 10 mg daily. We will continue to monitor for the next 3 to 4 days prior to making any additional changes. Maintaining appropriate oxygen saturation on 6 L nasal cannula at rest. Increase in the oxygen to 8 L/min while exercising has helped his tolerance. Oral intake is good Discussed with nursing - no problems that need addressed Reviewed the PT/OT/ST notes Medication list reviewed. Denies any chest pain. He has occasional blood on tissue from the nose but no major epistaxis.......he is using the nasal saline spray. Sleeping well now and less stressed. Tolerating the Buspar with no adverse effects. No hangover effect with the Trazodone at night. He does not like getting the Lovenox shots. He is ambulatory now and we will discontinue the Lovenox. Denies lightheadedness, chest pain, nausea/vomiting/abdominal pain, constipation. All lab was personally reviewed. The sodium is up to 133 and the chloride is 97. Potassium is stable at 4.1. BUN is 17 and the creatinine is 1.09. Glucose is 95. - Physical Exam Vitals/I&O's: Vital Signs Temp Pulse Resp BP Pulse Ox 98.0 F 71 20 H 139/69 H 96 08/01/20 09:24 08/01/20 09:24 08/01/20 09:24 08/01/20 09:24 08/01/20 09:24 Oxygen Flow Rate (L/min) 6 Oxygen Delivery Method Nasal Cannula Weight: 161 lb 6.054 oz Body Mass Index (BMI) 23.4 Orthostatic Vital Signs Start: 07/19/20 06:08 Freq: Status: Active Protocol: Activity Type Activity Date Activity User E-Sign Co-Sign Detail Recorded Client Recorded Date Recorded By Document 07/26/20 05:26 CAK [id number] 07/26/20 05:28 CAK 07/26/20 05:26 Orthostatic Vitals Standing -Blood Pressure (90/60-120/80 mm Hg) 138/77 H -Extremity Use Left Arm -Pulse Rate (60-100 beats/min) 103 H Sitting -Blood Pressure (90/60-120/80 mm Hg) 134/80 H -Extremity Use Left Arm -Pulse Rate (60-100 beats/min) 80 Lying -Blood Pressure (90/60-120/80 mm Hg) 140/75 H -Extremity Use Left Arm -Pulse Rate (60-100 beats/min) 74 Intake and Output for Last 24 Hours 07/31/20 07/31/20 08/01/20 00:59 23:59 23:59 Intake Total 600 / 600 Output Total 300 / 300 Balance 300 / 300 General: Alert, Oriented x3, Cooperative, No apparent distress Oral: Moist Mucosa Neck: Supple, No JVD Lungs: Rales - Very minimal crackles in both bases, no wheezing, no conversational dyspnea at rest, not tachypneic at rest. Cardiovascular: Regular rate, Regular Rhythm, Normal S1, Normal S2, No Gallop Abdomen: Bowel Sounds Present, Soft, Non Tender, Non-Distended Extremities: No cyanosis, No edema, No Calf Tenderness Skin: No rashes, No breakdown Neurological: - - his deficit from the CVA is primarily cognitive and he will benefit from more STY post discharge Psych/Mental Status: Appropriate, Flat Affect - He tells me that he has never been a social person. Laboratory Results 08/01/20 05:10: Sodium 133 L, Potassium 4.1, Chloride 97 L, Carbon Dioxide 32.0, Anion Gap 4 L, BUN 17, Creatinine 1.09, Estim Creat Clear Calc 58.80, Est GFR (MDRD) Af Amer 85, Est GFR (MDRD) Non-Af 70, BUN/Creatinine Ratio 15.6, Glucose 95, Calcium 8.9 Current Medications Acetaminophen (Acetaminophen 325 Mg Tablet) 650 mg PO Q6H PRN PRN PRN Reason: HEADACHE Last Admin: 07/27/20 17:34 Dose: 650 mg Documented by: Albuterol/Ipratropium (Ipratropium/Albuterol Sulfate 3 Ml Ampul.Neb) 3 ml INHALATION Q6H.RT PRN PRN Reason: Wheezing or SOB Amlodipine Besylate (Amlodipine 10 Mg Tablet) 10 mg PO QHS [facility] Last Admin: 07/31/20 20:52 Dose: 10 mg Documented by: Aspirin (Aspirin E.C. 81 Mg Tablet) 81 mg PO QHS [facility] Last Admin: 07/31/20 20:52 Dose: 81 mg Documented by: Bisacodyl (Bisacodyl 10 Mg Suppository) 10 mg RECTAL .PRN X 1 PRN PRN Reason: Constipation Buspirone HCl (Buspirone 5 Mg Tablet) 5 mg PO 0700,1300 [facility] Last Admin: 08/01/20 12:05 Dose: 5 mg Documented by: Buspirone HCl (Buspirone 5 Mg Tablet) 10 mg PO 2100 [facility] Last Admin: 07/31/20 20:51 Dose: 10 mg Documented by: Calamine/Phenol (Menthol/Lanolin/Calamine/Znox 113 Gm Tube) 1 applic TOPICAL TID [facility]; Protocol Last Admin: 08/01/20 13:24 Dose: 1 applicatio Documented by: Calcium/Vitamin D (Calcium Carb/Vitamin D 1 Tablet Tablet) 1 tablet PO DAILYCM [facility] Last Admin: 08/01/20 07:29 Dose: 1 tablet Documented by: Carvedilol (Carvedilol 6.25 Mg Tablet) 6.25 mg PO BID [facility] Last Admin: 08/01/20 07:30 Dose: 6.25 mg Documented by: Cholecalciferol (Cholecalciferol (Vit D3) 1,000 Unit (25mcg)) 2,000 unit PO QHS [facility] Last Admin: 07/31/20 20:51 Dose: 2,000 unit Documented by: Clopidogrel Bisulfate (Clopidogrel Bisulfate 75 Mg Tablet) 75 mg PO DAILY [facility] Last Admin: 08/01/20 07:30 Dose: 75 mg Documented by: Emollient Ointment (Emollient Combination No.72 500 Ml Lotion) 1 applic TOPICAL BID [facility]; Protocol Last Admin: 08/01/20 07:30 Dose: Not Given Documented by: Enoxaparin Sodium (Enoxaparin 40 Mg/0.4 Ml Syringe) 40 mg SC DAILY@0600 [facility] Last Admin: 08/01/20 06:37 Dose: 40 mg Documented by: Fluticasone Propionate (Fluticasone 0.05% 1 [place] Nasal.Sry) 2 spray NASAL DAILY [facility] Last Admin: 08/01/20 07:30 Dose: 2 spray Documented by: Haloperidol (Haloperidol 1 Mg Tablet) 1 mg PO TID PRN PRN PRN Reason: agitation/confusion Last Admin: 07/27/20 21:12 Dose: 1 mg Documented by: Levothyroxine Sodium (Levothyroxine 50 Mcg Tablet) 50 mcg PO DAILY@0600 [facility] Last Admin: 08/01/20 06:37 Dose: 50 mcg Documented by: Magnesium Hydroxide (Magnesium Hydroxide 30 Ml Udc) 30 ml PO .PRN X 1 PRN PRN Reason: Constipation Melatonin (Melatonin 10 Mg Tablet) 5 mg PO QHS [facility] Last Admin: 07/31/20 20:52 Dose: 5 mg Documented by: Ondansetron HCl (Ondansetron Odt 4 Mg Tablet) 4 mg PO Q6H PRN PRN PRN Reason: NAUSEA Last Admin: 07/19/20 13:16 Dose: 4 mg Documented by: Pravastatin Sodium (Pravastatin 20 Mg Tablet) 20 mg PO QHS [facility] Last Admin: 07/31/20 20:52 Dose: 20 mg Documented by: Prednisone (Prednisone 5 Mg Tablet) 5 mg PO 0800,1500 [facility] Last Admin: 08/01/20 07:30 Dose: 5 mg Documented by: Senna/Docusate Sodium (Senna/Docusate Sodium 1 Tablet) 2 tablet PO BID [facility] Last Admin: 08/01/20 07:31 Dose: 1 tablet Documented by: Sodium Chloride (0.9% Saline Lock 10 Ml Syringe) 10 - 40 ml IV UD PRN PRN Reason: SALINE FLUSH Last Admin: 08/01/20 07:10 Dose: 10 ml Documented by: Sodium Chloride (Sodium Chloride 0.65% 1 [place].Btl) 1 spray NASAL TID [facility] Last Admin: 08/01/20 13:24 Dose: 1 spray Documented by: Tamsulosin HCl (Tamsulosin Hcl 0.4 Mg Capsule) 0.4 mg PO DAILY@1730 [facility] Last Admin: 07/31/20 17:28 Dose: 0.4 mg Documented by: Trazodone HCl (Trazodone 50 Mg Tablet) 50 mg PO QHS [facility] Last Admin: 07/31/20 20:52 Dose: 50 mg Documented by: Medical Necessity - Tobacco Use Smoking Status: Never smoker Tobacco Use: Non-smoker Assessment/Plan All Active Problems Pneumonia (Acute) Sepsis (Resolved) Hyponatremia (Acute) Impressions 1. Post stroke debility combined with debility due to recent pneumonia in a patient with chronic lung disease secondary to idiopathic pulmonary fibrosis. 2. Epistaxis-resolved 3. Acute delirium-multifactorial. This has resolved with tapering of steroids and discontinuation of Levaquin. 4. Insomnia - suspect due to anxiety 5. Presbycusis-I suspect that this predates his hospital admission. He likely lip reads and is unable to do this with everyone wearing a mask. I recommended he get a hearing test post discharge. 6. Hyponatremia- I suspect this is due to adrenal insufficiency today for it to have dropped from 132 to 123 in 48 hours. RAJAT since the creat is better. FENA recently was 1%. The sodium increased to 131 with an increase in the Prednisone to 5 mg BID and 2 liters of NS. 7. Orthostatic hypotension-resolved 8. Urine retention-post void residuals on 07/22/2020 and 07/23/2020 ranged from 275-300. This may be related to Seroquel? Because of the orthostatic hypotension he is not really a candidate for increasing Flomax. Seroquel was discontinued and he denies feeling like he is retaining. 9. Metabolic encephalopathy due to hyponatremia - better with the increase in the sodium to 131. Resolved 9. TIA's - I suspect he had a stroke while on PCU because the aphasia lasted for a significant time and so did the confusion. This is the only thing I have to explain the rapid decline in his higher level/executive functioning. 10. uncontrolled HTN - goal in a pt with CVA/TIA's is < 130/70 11. secondary adrenal insufficiency - due to medications Increase the Buspar to 10 mg at 0700 and 2100 and 5 mg at 1300 DC the Lovenox DC the Flonase....he does not think it helps him Taper the prednisone by 1 mg a week until he is on 5 mg daily in the AM and get a weekly BMP during the taper Start Florinef 0.05 mg p.o. daily Recheck a BMP on or Saturday morning. Inpatient E&M: [id number] Subs Hosp L2
[2020-08-01] MEDS: Tamsulosin HCl 0.4 MG Capsule PO (17:34)
[2020-08-01 19:19] VITALS: BP 149/72; PULSE 78; RESP 20; TEMP 36.7; O2SAT 98
[2020-08-01 21:00] VITALS: PULSE 78; RESP 20; O2SAT 98
[2020-08-01] MEDS: busPIRone 5 MG Tablet 10 MG PO (21:04)
[2020-08-01] MEDS: traZODone 50 MG Tablet PO (21:05)
[2020-08-01] MEDS: Aspirin E.C. 81 MG Tablet PO (21:05)
[2020-08-01] MEDS: amLODIPine 10 MG Tablet PO (21:05)
[2020-08-01] MEDS: Pravastatin 20 MG Tablet PO (21:05)
--- NOTE | 2020-08-02 03:11 | NURSING ---
Reviewed and agree with JAVA WEB APPLICATION DEVELOPER documentation and charting.
[2020-08-02] MEDS: Sodium Chloride 0.65% 1 SPRAY SPRAY.BTL NASAL ×3 (05:58→21:35)
[2020-08-02] MEDS: Levothyroxine 50 MCG Tablet PO (05:58)
[2020-08-02] MEDS: Menthol/Lanolin/Calamine/Znox 113 GM Tube 1 APPLIC TOPICAL ×2 (05:59→21:35)
[2020-08-02] MEDS: busPIRone 5 MG Tablet 10 MG PO ×2 (07:38→21:34)
[2020-08-02] MEDS: Fludrocortisone Acetate 0.1 MG Tablet 0.05 MG PO (07:39)
[2020-08-02] MEDS: Calcium Carb/Vitamin D 1 TABLET Tablet PO (07:39)
[2020-08-02] MEDS: predniSONE 5 MG Tablet PO ×2 (07:39→15:38)
[2020-08-02] MEDS: Senna/Docusate Sodium 1 Tablet PO (07:40)
[2020-08-02] MEDS: Carvedilol 6.25 MG Tablet PO ×2 (07:40→21:35)
[2020-08-02] MEDS: Clopidogrel Bisulfate 75 MG Tablet PO (07:40)
[2020-08-02 09:50] VITALS: BP 148/70; PULSE 84; RESP 17; TEMP 36.8; O2SAT 98
[2020-08-02] MEDS: busPIRone 5 MG Tablet PO (12:11)
[2020-08-02] MEDS: Tamsulosin HCl 0.4 MG Capsule PO (17:55)
[2020-08-02 19:30] VITALS: BP 153/66; PULSE 79; RESP 22; TEMP 36.4; O2SAT 99
[2020-08-02] MEDS: Aspirin E.C. 81 MG Tablet PO (21:34)
[2020-08-02] MEDS: Pravastatin 20 MG Tablet PO (21:35)
[2020-08-02] MEDS: amLODIPine 10 MG Tablet PO (21:35)
[2020-08-02] MEDS: traZODone 50 MG Tablet PO (21:35)
--- NOTE | 2020-08-03 02:49 | NURSING ---
Reviewed and agree with BOAT DOCK OPERATOR documentation and charting.
[2020-08-03] MEDS: Levothyroxine 50 MCG Tablet PO (07:19)
[2020-08-03] MEDS: Sodium Chloride 0.65% 1 SPRAY SPRAY.BTL NASAL ×3 (07:19→21:52)
[2020-08-03] MEDS: Menthol/Lanolin/Calamine/Znox 113 GM Tube 1 APPLIC TOPICAL ×3 (07:27→21:51)
[2020-08-03] MEDS: Clopidogrel Bisulfate 75 MG Tablet PO (07:59)
[2020-08-03] MEDS: Calcium Carb/Vitamin D 1 TABLET Tablet PO (08:00)
[2020-08-03] MEDS: Carvedilol 6.25 MG Tablet PO ×2 (08:00→21:51)
[2020-08-03] MEDS: busPIRone 5 MG Tablet 10 MG PO ×2 (08:00→21:50)
[2020-08-03] MEDS: Senna/Docusate Sodium 1 Tablet PO (08:00)
[2020-08-03] MEDS: predniSONE 5 MG Tablet PO ×2 (08:00→15:15)
[2020-08-03] MEDS: Fludrocortisone Acetate 0.1 MG Tablet 0.05 MG PO (08:00)
[2020-08-03 08:07] VITALS: BP 122/70; PULSE 102; RESP 20; O2SAT 98
[2020-08-03 09:00] VITALS: O2SAT 96
--- NOTE | 2020-08-03 12:16 | PCM.PROGNOTE ---
Patient Problems: Active and Suspected Problems Pneumonia (Acute) Hyponatremia (Acute) Subjective: Afebrile VSS Maintaining appropriate oxygen saturation on RA Oral intake is good Discussed with nursing - no problems that need addressed Reviewed the PT/OT/ST notes Medication list reviewed. I reviewed the dietitians note from yesterday regarding his weight loss. Intake has improved and for the past few days the weight has increased a little. He is getting supplements. Jet is tolerating the increased dose in the BuSpar with no nausea/vomiting/abdominal pain/abdominal cramping. He is sleeping better with the trazodone. He is still feeling somewhat anxious and also admits to feeling depressed......kristie at losing his independence. He does realize that This is the best thing for him at this time because he does need assistance at times. The staff has noticed a significant improvement in his anxiety since admission. He is doing better with therapy since the anxiety is better. He has developed trust since being in rehab and knows that when he has a problem there is a quick response from staff. In think he is a little more anxious today because of the impending DC to [place] on Saturday. He still c/o REYNOLDS but he is more or less at his baseline now and he knows he has to pace himself and take rest breaks. Alert and oriented X 3, appears calm. MM are moist Lungs - diminished with few carse crackles in the bases......this is the best I have heard his lungs since admission to the rehab unit. Heart - RRR with no ectopy. Distant heart sounds. No gallop or MM appreciated. He is a little out of breath because he just finished some arm exercises with weights. No calf pain no rashes and no skin breakdown no focal neurologic deficits. He actually told a joke today and smiled. Affect is flat but, he has been this way his entire life. - Physical Exam Vitals/I&O's: Vital Signs Temp Pulse Resp BP Pulse Ox 97.6 F L 102 H 20 H 122/70 H 98 08/02/20 19:30 08/03/20 08:07 08/03/20 08:07 08/03/20 08:07 08/03/20 08:07 Oxygen Flow Rate (L/min) 6 Oxygen Delivery Method Nasal Cannula Weight: 162 lb 0.636 oz Body Mass Index (BMI) 23.4 Orthostatic Vital Signs Start: 07/19/20 06:08 Freq: Status: Active Protocol: Activity Type Activity Date Activity User E-Sign Co-Sign Detail Recorded Client Recorded Date Recorded By Document 07/26/20 05:26 WHIT [id number] 07/26/20 05:28 JESÚSK 07/26/20 05:26 Orthostatic Vitals Standing -Blood Pressure (90/60-120/80 mm Hg) 138/77 H -Extremity Use Left Arm -Pulse Rate (60-100 beats/min) 103 H Sitting -Blood Pressure (90/60-120/80 mm Hg) 134/80 H -Extremity Use Left Arm -Pulse Rate (60-100 beats/min) 80 Lying -Blood Pressure (90/60-120/80 mm Hg) 140/75 H -Extremity Use Left Arm -Pulse Rate (60-100 beats/min) 74 Intake and Output for Last 24 Hours 08/01/20 08/02/20 08/03/20 23:59 23:59 23:59 Intake Total 1905 / 1905 2180 / 2180 Output Total 1000 / 1000 2625 / 2625 550 / 550 Balance 905 / 905 -445 / -445 -550 / -550 Current Medications Acetaminophen (Acetaminophen 325 Mg Tablet) 650 mg PO Q6H PRN PRN PRN Reason: HEADACHE Last Admin: 07/27/20 17:34 Dose: 650 mg Documented by: Albuterol/Ipratropium (Ipratropium/Albuterol Sulfate 3 Ml Ampul.Neb) 3 ml INHALATION Q6H.RT PRN PRN Reason: Wheezing or SOB Amlodipine Bes[facility] ([facility] 10 Mg [facility]) [facility] Admin: 08/02/20 21:35 Dose: 10 mg Documented by: Aspirin (Aspirin E.C. 81 Mg Tablet) 81 mg PO QHS [facility] Last Admin: 08/02/20 21:34 Dose: 81 mg Documented by: Bisacodyl (Bisacodyl 10 Mg Suppository) 10 mg RECTAL .PRN X 1 PRN PRN Reason: Constipation Buspirone HCl (Buspirone 5 Mg Tablet) 10 mg PO 0700,2100 [facility] Last Admin: 08/03/20 08:00 Dose: 10 mg Documented by: Buspirone HCl (Buspirone 5 Mg Tablet) 5 mg PO 1300 [facility] Last Admin: 08/02/20 12:11 Dose: 5 mg Documented by: Calamine/Phenol (Menthol/Lanolin/Calamine/Znox 113 Gm Tube) 1 applic TOPICAL TID [facility]; Protocol Last Admin: 08/03/20 07:27 Dose: 1 applicatio Documented by: Calcium/Vitamin D (Calcium Carb/Vitamin D 1 Tablet Tablet) 1 tablet PO DAILYCM [facility] Last Admin: 08/03/20 08:00 Dose: 1 tablet Documented by: Carvedilol (Carvedilol 6.25 Mg Tablet) 6.25 mg PO BID [facility] Last Admin: 08/03/20 08:00 Dose: 6.25 mg Documented by: Cholecalciferol (Cholecalciferol (Vit D3) 1,000 Unit (25mcg)) 2,000 unit PO QHS [facility] Last Admin: 08/02/20 21:35 Dose: 2,000 unit Documented by: Clopidogrel Bisulfate (Clopidogrel Bisulfate 75 Mg Tablet) 75 mg PO DAILY [facility] Last Admin: 08/03/20 07:59 Dose: 75 mg Documented by: Emollient Ointment (Emollient Combination No.72 500 Ml Lotion) 1 applic TOPICAL BID [facility]; Protocol Last Admin: 08/03/20 08:02 Dose: Not Given Documented by: Fludrocortisone Acetate (Fludrocortisone Acetate 0.1 Mg Tablet) 0.05 mg PO DAILY@0800 [facility] Last Admin: 08/03/20 08:00 Dose: 0.05 mg Documented by: Levothyroxine Sodium (Levothyroxine 50 Mcg Tablet) 50 mcg PO DAILY@0600 [facility] Last Admin: 08/03/20 07:19 Dose: 50 mcg Documented by: Magnesium Hydroxide (Magnesium Hydroxide 30 Ml Udc) 30 ml PO .PRN X 1 PRN PRN Reason: Constipation Ondansetron HCl (Ondansetron Odt 4 Mg Tablet) 4 mg PO Q6H PRN PRN PRN Reason: NAUSEA Last Admin: 07/19/20 13:16 Dose: 4 mg Documented by: Pravastatin Sodium (Pravastatin 20 Mg Tablet) 20 mg PO QHS [facility] Last Admin: 08/02/20 21:35 Dose: 20 mg Documented by: Prednisone (Prednisone 5 Mg Tablet) 5 mg PO 0800,1500 [facility] Last Admin: 08/03/20 08:00 Dose: 5 mg Documented by: Senna/Docusate Sodium (Senna/Docusate Sodium 1 Tablet) 1 tablet PO DAILY [facility] Last Admin: 08/03/20 08:00 Dose: 1 tablet Documented by: Sodium Chloride (0.9% Saline Lock 10 Ml Syringe) 10 - 40 ml IV UD PRN PRN Reason: SALINE FLUSH Last Admin: 08/01/20 07:10 Dose: 10 ml Documented by: Sodium Chloride (Sodium Chloride 0.65% 1 [place].Btl) 1 spray NASAL TID [facility] Last Admin: 08/03/20 07:19 Dose: 1 spray Documented by: Tamsulosin HCl (Tamsulosin Hcl 0.4 Mg Capsule) 0.4 mg PO DAILY@1730 [facility] Last Admin: 08/02/20 17:55 Dose: 0.4 mg Documented by: Trazodone HCl (Trazodone 50 Mg Tablet) 50 mg PO QHS [facility] Last Admin: 08/02/20 21:35 Dose: 50 mg Documented by: Medical Necessity - Tobacco Use Smoking Status: Never smoker Tobacco Use: Non-smoker Assessment/Plan All Active Problems Pneumonia (Acute) Sepsis (Resolved) Hyponatremia (Acute) Impressions 1. Post stroke debility combined with debility due to recent pneumonia in a patient with chronic lung disease secondary to idiopathic pulmonary fibrosis. 2. Epistaxis-resolved 3. Acute delirium-multifactorial. This has resolved with tapering of steroids and discontinuation of Levaquin. 4. Insomnia - suspect due to anxiety. Better with the addition of Trazodone to the drug regimen. 5. Presbycusis-I suspect that this predates his hospital admission. He likely lip reads and is unable to do this with everyone wearing a mask. I recommended he get a hearing test post discharge. 6. Hyponatremia- I suspect this is due to adrenal insufficiency today for it to have dropped from 132 to 123 in 48 hours. KRISTIE since the creat is better. FENA recently was 1%. The sodium increased to 131 with an increase in the Prednisone to 5 mg BID and 2 liters of NS. Florinef was added to his drug regimen on Saturday 7. Orthostatic hypotension-resolved 8. Urine retention-post void residuals on 07/22/2020 and 07/23/2020 ranged from 275-300. This may be related to Seroquel? Because of the orthostatic hypotension he is not really a candidate for increasing Flomax. Seroquel was discontinued and he denies feeling like he is retaining. 9. Metabolic encephalopathy due to hyponatremia - better with the increase in the sodium to 131. Resolved 9. TIA's - I suspect he had a stroke while on PCU because the aphasia lasted for a significant time and so did the confusion. This is the only thing I have to explain the rapid decline in his higher level/executive functioning. 10. uncontrolled HTN - goal in a pt with CVA/TIA's is < 130/70. Blood pressure is now well controlled with the current antihypertensive regimen. 11. secondary adrenal insufficiency - due to medications 12. anxiety/depression/insomnia 13.. Weight loss due to increased energy expenditure due to work of breathing and the 3 hours of therapy daily. BMP tomorrow Add an SSRI to the current drug regimen for better control of anxiety and for tx of depression -will need to monitor the sodium closely since SSRI's can cause hyponatremia. I spoke with Palliative today. I think Jet would benefit greatly from their services for Sx management, kristie the anxiety and the depression. Unfortunately, [place] may not allow them to visit Jet at this point in time due to COVID. Jet wants to meet with Palliative......not possible currently....the [employer] for palliative are on quarantine until Saturday. Increase the Buspar to TID Will start weaning the Prednisone on Saturday. Wean the afternoon dose by 1 mg every week utnil he is off the afternoon dose and back to his chronic 5 mg daily. Send a copy of today's progress note to [facility] and tomorrow after I see the lab will send a med list. Inpatient E&M: [id number] Subs Hosp L2
[2020-08-03] MEDS: busPIRone 5 MG Tablet PO ×2 (12:39→16:21)
[2020-08-03] MEDS: Tamsulosin HCl 0.4 MG Capsule PO (17:36)
[2020-08-03] MEDS: MELATONIN 3 MG TABLET 6 MG PO (21:51)
[2020-08-03] MEDS: Aspirin E.C. 81 MG Tablet PO (21:51)
[2020-08-03] MEDS: traZODone 50 MG Tablet PO (21:51)
[2020-08-03] MEDS: amLODIPine 10 MG Tablet PO (21:52)
[2020-08-03] MEDS: Pravastatin 20 MG Tablet PO (21:52)
[2020-08-03 22:00] VITALS: BP 131/70; PULSE 85; RESP 20; TEMP 36.3; O2SAT 98
[2020-08-04 05:54] LABS: Anion Gap 4 (5-15); BUN 22 mg/dL (7-18); Calcium,Total 8.7 mg/dL (8.5-10.1); Chloride 97 mmol/L (98-107); EST Glomerular Filtration Rate 69 mL/min (>60); Est Glom Filt Rate - Afr Amer 84 mL/min (>60); Estimated Creatinine Clearance 59.39 ml/min; Glucose 94 mg/dL (74-106); Potassium 5.2 mmol/L (3.5-5.1); Sodium Level 133 mmol/L (136-145)
[2020-08-04] MEDS: busPIRone 5 MG Tablet 10 MG PO ×3 (06:47→22:06)
[2020-08-04] MEDS: Levothyroxine 50 MCG Tablet PO (06:47)
[2020-08-04] MEDS: Sodium Chloride 0.65% 1 SPRAY SPRAY.BTL NASAL ×3 (06:47→22:04)
[2020-08-04] MEDS: Menthol/Lanolin/Calamine/Znox 113 GM Tube 1 APPLIC TOPICAL ×3 (06:50→22:11)
[2020-08-04] MEDS: Fludrocortisone Acetate 0.1 MG Tablet 0.05 MG PO (07:34)
[2020-08-04] MEDS: Calcium Carb/Vitamin D 1 TABLET Tablet PO (07:35)
[2020-08-04] MEDS: predniSONE 5 MG Tablet PO ×2 (07:35→15:39)
[2020-08-04] MEDS: Carvedilol 6.25 MG Tablet PO ×2 (07:35→22:07)
[2020-08-04] MEDS: Sertraline 50 MG Tablet PO (07:36)
[2020-08-04] MEDS: Clopidogrel Bisulfate 75 MG Tablet PO (07:36)
[2020-08-04] MEDS: Senna/Docusate Sodium 1 Tablet PO (07:39)
[2020-08-04 07:48] VITALS: BP 125/56; PULSE 76; RESP 20; TEMP 36.6; O2SAT 94
[2020-08-04 09:50] VITALS: O2SAT 98
--- NOTE | 2020-08-04 09:56 | CASEMGMT ---
Social Work IDT met with patient and brother via conference call for Team meeting. Discussed patient's progress in therapy. Pt is supervised for tx, ambulating 90 ft with FWW supervised, set up/sup for all ADLS. Pt has increased activity tolerance, improved strength and endurance and has learned to pace himself better. ST is working on swallowing exercises, pt has to limit distractions during meals, and word fining issues. made referral to [facility] to follow at NH. Brother has O2 from home transferred to [facility]. Pt to NH to [place] 08/05. Pt requesting FWW. Referred to [facility]. No other needs. Plan: DC to [facility] 08/05, GEOVANY [place]. EZ CanoW
--- NOTE | 2020-08-04 10:12 | PN_ITS ---
Subjective: Afebrile VSS Maintaining appropriate oxygen saturation on RA Oral intake is good Discussed with nursing - no problems that need addressed Reviewed the PT/OT/ST notes Medication list reviewed. Doing well. sleeping good at night now. Anxiety is under much better control. He denies CP, palpitations, abdominal pain, constipation, diarrhea. He continues to have REYNOLDS but he is learning how to better pace himself and U re- enforced with him how important it is to keep exercising daily to maintain endurance. Alert and oriented X 3, appropriate, much less anxious Lungs-diminished throughout with coarse crackles in the bases, no wheezing, no conversational dyspnea while at rest, not tachypneic at rest Heart-regular rate and rhythm, no ectopic activity, no gallop Abdomen-soft, nontender, nondistended, bowel sounds present, no guarding with palpation No calf tenderness No leg edema No rashes and no skin breakdown He seems much more at ease now when we are talking. I answered all his questions. He has a little anxiety today about transferring to [facility] and wondering if he will get the same assistance that he has been getting in rehab. I tried to reassure him that [facility] is a very nice facility and I think he will be comfortable there. Impressions 1. Postop debility 2. Idiopathic pulmonary fibrosis 3. Chronic respiratory failure with hypoxemia 4. Anxiety/depression 5. Acute delirium-resolved 6. Acute adrenal insufficiency with severe hyponatremia-resolved with increase in prednisone to 5 mg twice daily. Will taper slowly over the next month to his baseline 5 mg daily Plan discharge to [facility] this Saturday. - Physical Exam Vitals/I&O's: Vital Signs Temp Pulse Resp BP Pulse Ox 97.9 F 76 20 H 125/56 H 98 08/04/20 07:48 08/04/20 07:48 08/04/20 07:48 08/04/20 07:48 08/04/20 09:50 Oxygen Flow Rate (L/min) 6 Oxygen Delivery Method Nasal Cannula Weight: 162 lb 14.746 oz Body Mass Index (BMI) 23.4 Orthostatic Vital Signs Start: 07/19/20 06:08 Freq: Status: Active Protocol: Activity Type Activity Date Activity User E-Sign Co-Sign Detail Recorded Client Recorded Date Recorded By Document 07/26/20 05:26 WHIT [id number] 07/26/20 05:28 CAK 07/26/20 05:26 Orthostatic Vitals Standing -Blood Pressure (90/60-120/80 mm Hg) 138/77 H -Extremity Use Left Arm -Pulse Rate (60-100 beats/min) 103 H Sitting -Blood Pressure (90/60-120/80 mm Hg) 134/80 H -Extremity Use Left Arm -Pulse Rate (60-100 beats/min) 80 Lying -Blood Pressure (90/60-120/80 mm Hg) 140/75 H -Extremity Use Left Arm -Pulse Rate (60-100 beats/min) 74 Intake and Output for Last 24 Hours 08/02/20 08/03/20 08/04/20 23:59 23:59 23:59 Intake Total 2180 / 2180 1600 / 1600 500 / 500 Output Total 2625 / 2625 1900 / 1900 300 / 300 Balance -445 / -445 -300 / -300 200 / 200 Microbiology Past 72 Hours 08/03/20 11:56 Mucosa - Nose - Final Laboratory Results 08/04/20 05:26: Sodium 133 L, Potassium 5.2 H, Chloride 97 L, Carbon Dioxide 32.0, Anion Gap 4 L, BUN 22 H, Creatinine 1.10, Estim Creat Clear Calc 59.39, Est GFR (MDRD) Af Amer 84, Est GFR (MDRD) Non-Af 69, BUN/Creatinine Ratio 20.0, Glucose 94, Calcium 8.7 Current Medications Acetaminophen (Acetaminophen 325 Mg Tablet) 650 mg PO Q6H PRN PRN PRN Reason: HEADACHE Last Admin: 07/27/20 17:34 Dose: 650 mg Documented by: Albuterol/Ipratropium (Ipratropium/Albuterol Sulfate 3 Ml Ampul.Neb) 3 ml INHALATION Q6H.RT PRN PRN Reason: Wheezing or SOB Amlodipine Besylate (Amlodipine 10 Mg Tablet) 10 mg PO QHS [facility] Last Admin: 08/03/20 21:52 Dose: 10 mg Documented by: Aspirin (Aspirin E.C. 81 Mg Tablet) 81 mg PO QHS [facility] Last Admin: 08/03/20 21:51 Dose: 81 mg Documented by: Bisacodyl (Bisacodyl 10 Mg Suppository) 10 mg RECTAL .PRN X 1 PRN PRN Reason: Constipation Buspirone HCl (Buspirone 5 Mg Tablet) 10 mg PO TID [facility] Last Admin: 08/04/20 06:47 Dose: 10 mg Documented by: Calamine/Phenol (Menthol/Lanolin/Calamine/Znox 113 Gm Tube) 1 applic TOPICAL TID [facility]; Protocol Last Admin: 08/04/20 06:50 Dose: 1 applicatio Documented by: Calcium/Vitamin D (Calcium Carb/Vitamin D 1 Tablet Tablet) 1 tablet PO DAILYCM [facility] Last Admin: 08/04/20 07:35 Dose: 1 tablet Documented by: Carvedilol (Carvedilol 6.25 Mg Tablet) 6.25 mg PO BID [facility] Last Admin: 08/04/20 07:35 Dose: 6.25 mg Documented by: Cholecalciferol (Cholecalciferol (Vit D3) 1,000 Unit (25mcg)) 2,000 unit PO QHS [facility] Last Admin: 08/03/20 21:52 Dose: 2,000 unit Documented by: Clopidogrel Bisulfate (Clopidogrel Bisulfate 75 Mg Tablet) 75 mg PO DAILY [facility] Last Admin: 08/04/20 07:36 Dose: 75 mg Documented by: Emollient Ointment (Emollient Combination No.72 500 Ml Lotion) 1 applic TOPICAL BID [facility]; Protocol Last Admin: 08/04/20 07:35 Dose: Not Given Documented by: Fludrocortisone Acetate (Fludrocortisone Acetate 0.1 Mg Tablet) 0.05 mg PO DAILY@0800 [facility] Last Admin: 08/04/20 07:34 Dose: 0.05 mg Documented by: Levothyroxine Sodium (Levothyroxine 50 Mcg Tablet) 50 mcg PO DAILY@0600 [facility] Last Admin: 08/04/20 06:47 Dose: 50 mcg Documented by: Magnesium Hydroxide (Magnesium Hydroxide 30 Ml Udc) 30 ml PO .PRN X 1 PRN PRN Reason: Constipation Melatonin (Melatonin 3 Mg Tablet) 6 mg PO QHS [facility] Last Admin: 08/03/20 21:51 Dose: 6 mg Documented by: Ondansetron HCl (Ondansetron Odt 4 Mg Tablet) 4 mg PO Q6H PRN PRN PRN Reason: NAUSEA Last Admin: 07/19/20 13:16 Dose: 4 mg Documented by: Pravastatin Sodium (Pravastatin 20 Mg Tablet) 20 mg PO QHS [facility] Last Admin: 08/03/20 21:52 Dose: 20 mg Documented by: Prednisone (Prednisone 5 Mg Tablet) 5 mg PO 0800,1500 [facility] Last Admin: 08/04/20 07:35 Dose: 5 mg Documented by: Senna/Docusate Sodium (Senna/Docusate Sodium 1 Tablet) 1 tablet PO DAILY [facility] Last Admin: 08/04/20 07:39 Dose: 1 tablet Documented by: Sertraline HCl (Sertraline 50 Mg Tablet) 50 mg PO DAILY [facility] Last Admin: 08/04/20 07:36 Dose: 50 mg Documented by: Sodium Chloride (0.9% Saline Lock 10 Ml Syringe) 10 - 40 ml IV UD PRN PRN Reason: SALINE FLUSH Last Admin: 08/01/20 07:10 Dose: 10 ml Documented by: Sodium Chloride (Sodium Chloride 0.65% 1 [place].Btl) 1 spray NASAL TID [facility] Last Admin: 08/04/20 06:47 Dose: 1 spray Documented by: Tamsulosin HCl (Tamsulosin Hcl 0.4 Mg Capsule) 0.4 mg PO DAILY@1730 [facility] Last Admin: 08/03/20 17:36 Dose: 0.4 mg Documented by: Trazodone HCl (Trazodone 50 Mg Tablet) 50 mg PO QHS [facility] Last Admin: 08/03/20 21:51 Dose: 50 mg Documented by: Medical Necessity - Tobacco Use Smoking Status: Never smoker Tobacco Use: Non-smoker Assessment/Plan All Active Problems 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
--- NOTE | 2020-08-04 10:43 | NURSING ---
Spoke with Dr. Can's office requesting an appointment for the first week of September, waiting for return call for appointment time.
--- NOTE | 2020-08-04 10:56 | DCINST_ITS ---
- Discharge Diagnoses Current Active Problems: Current Active and Chronic Problems Pneumonia (Acute) Mild aortic stenosis (Chronic) Moderate pulmonary arterial systolic hypertension (Chronic) PA systolic recently estimated at 50 Anxiety (Chronic) Hypothyroidism (Chronic) Hyponatremia (Acute) Hyperlipidemia (Chronic) Coronary artery disease (Chronic) Status post stents. Hypertension (Chronic) Pulmonary fibrosis (Chronic) follows up with Dr. Kirti Miguel at [facility] Chronic respiratory failure (Chronic) You will use the following diet at home:: Regular - Low carbs and higher in fat and protein. 4-5 smaller meals a day. Eating a large meal makes him more SOB. Carbohydrates increase the work of breathing because they increse the amount of CO2 you have to breath off., Cardiac - high calorie Your food should be the consistency of: Regular Your liquids should be the consistency of: Regular/Thin Discharge Activity: May Shower, Use Walker Weight Bearing Status: Full weight bearing Additional Activity Instructions:: He needs to rest between exercise activities. Exercise tolerance has increased while in acute rehab. When he is exercising the O2 should be turned up to 8 LPM. When at rest he should be on 6 LPM. Call your doctor if you observe: Fever of 101 or Higher, Inability to urinate, Inability to have a bowel movement, Shortness of breath - He is always SOB, kristie with excercise, but if he has SOB outside his baseline notify his physician., Dizziness, Fainting spells, Swelling in the ankles, Chest pain, Increased palpitations (irregular heartbeat), Calf discomfort, Uncontrolled pain Additional Instructions: 1. Jet had 2 COVID antigen tests while in rehab. One on 07/25/20 and 1 on and both were negative. 2. Jet has osteoporosis and he gets Prolia injections twice a year. He is going to follow up with Dr. Kamran Can for this. 3. Jet had a TIA while in rehab that lasted about 45 minutes. He gets confused and has expressive aphasia. He has not had any unilateral weakness or sensory loss. 4. When Jet has his next appt with his brass roller please send a copy of the discharge summary from rehab with him. 5. He is chronically on 5 mg of Prednisone daily. He had acute adrenal insufficiency when taken off high does steroids after 7 days. His sodium dropped to 123 but, it is now stable at 133 and the encephalopathy has resolved. He is going to be tapered down to 5 mg daily over the next 4 weeks.....taper by 1 mg daily every week until he is only on 5 mg daily in the AM. I recommend he have a WEEKLY BMP while the dose is being tapered. 6. Jet has chronic air hunger and this makes him quite anxious. In addition to the anxiety he is depressed at losing his independence and having to move out of his home and into assisted living. He has had insomnia for sometime now due to anxiety. The anxiety has improved significantly since being started on Sertraline and Buspar. The Buspar dose has been gradually increased to 10 mg TID and he is tolerating this with no GI side effects. He also has no adverse reactions to the Sertraline. He is sleeping better with Trazodone and Melatonin at . 7. Jet would like to talk with Palliative care. I think he would benefit greatly form their involvement in his care for symptom management. 8. He has never wheezed during his hospital stay. The chronic lung disease is idiopathic pulmonary fibrosis and not COPD. The problem is air exchange from the alveolus to the capillaries and not inflammation of the airways. He does not benefit from increased steroids if he is not wheezing and the high dose steroids caused acute delirium. Aerosols also do NOT help if he is not wheezing. When he gets anxious his respiratory rate increases and the chest muscles tighten making it harder for him to breath so managing his anxiety is of utmost importance. 9. It is my hope that Jet can get psychotherapy at [facility] to learn to manage his anxiety better. 10. Jet has been c/o not being able to hear. the R EAC is patent and the TM is intact and appears normal. There is a small amount of hard wax in the Left EAC and the visible portion of the TM appears normal. I think he has had a chronic problem with his hearing and he has learned to read lips. Now that everyone is wearing masks he is no longer able to read lips and it has affected his perception of hearing loss. He thinks he heard fine until he entered the hospital. He should follow up with ENT for a hearing test. 11. My cell phone number is [phone] if you have any questions at all. Pending Tests on Discharge: none Allergies/Adverse Reactions: Allergies No Known Allergies Allergy (Verified 08/25/18 09:36) Medications to take at Discharge Pirfenidone [Esbriet] 801 mg PO TID 07/03/16 Aspirin E.C. [Ecotrin] 81 mg PO QHS 08/25/18 Calcium Citrate/Vitamin D3 [Citracal-D3 200Mg-250 Unit Tab] 1 tab PO DAILY 08/25/18 Prednisone 5 mg PO DAILY 07/13/20 Senna/Docusate Sodium [Senokot-S] 2 tab PO BID PRN PRN tab 07/15/20 Acetaminophen [Tylenol Tablet] 650 mg PO Q6H PRN PRN tab 07/18/20 Fluticasone 0.05% [Flonase Nasal [place]] 2 spray NASAL DAILY 07/18/20 Prednisone 10 mg PO DAILY 07/18/20 levoFLOXacin tablet [Levaquin tablet] 750 mg PO DAILY 07/18/20 Amlodipine [Norvasc] 10 mg PO QHS #30 tab 08/04/20 Atorvastatin Calcium 40 mg PO QHS #30 tab 08/04/20 Bisacodyl [Dulcolax] 10 mg RECTAL .PRN X 1 PRN suppos. 08/04/20 Calcium Carb/Vitamin D [Os-Bowen 500MG + D] 1 tablet PO DAILYCM tablet 08/04/20 Carvedilol [Coreg (Beta Manan)] 6.25 mg PO BID #60 tab 08/04/20 Cholecalciferol (Vitamin D3) [Vitamin D3] 2,000 unit PO QHS #30 cap 08/04/20 Clopidogrel Bisulfate [Plavix] 75 mg PO DAILY #30 tab 08/04/20 Emollient Combination No.72 [Eucerin Intensive Repair] 1 applic TOPICAL BID lotion 08/04/20 Levothyroxine [Synthroid] 50 mcg PO DAILY@0600 #30 tab 08/04/20 Magnesium Hydroxide [Milk Of Magnesia] 30 ml PO .PRN X 1 PRN udc 08/04/20 Melatonin 6 mg PO QHS #60 tab 08/04/20 Menthol/Lanolin/Calamine/Znox [Calmoseptine Ointment] 1 applic TOPICAL TID tube 08/04/20 Ondansetron [Zofran Odt] 4 mg PO Q6H PRN PRN #10 tab 08/04/20 Prednisone 5 mg PO DAILY #30 tablet 11/05/20 Prednisone See Taper PO DAILY #70 tablet 08/04/20 Senna/Docusate Sodium [Senokot-S] 1 tab PO DAILY #30 tab 08/04/20 Sertraline HCl [Zoloft] 50 mg PO DAILY #30 tab 08/04/20 Sodium Chloride 0.65% [[place] Nasal [place]] 1 spray NASAL TID spray.btl 08/04/20 Tamsulosin HCl [Flomax] 0.4 mg PO DAILY@1730 #30 cap 08/04/20 busPIRone [Buspar] 10 mg PO TID tablet 08/04/20 traZODone [Desyrel] 50 mg PO QHS #30 tab 08/04/20 The following prescriptions were given: Atorvastatin Calcium 40 mg PO QHS #30 tab Prescription Printed Carvedilol [Coreg (Beta Manan)] 6.25 mg PO BID #60 tab Prescription Printed traZODone [Desyrel] 50 mg PO QHS #30 tab Prescription Printed Tamsulosin HCl [Flomax] 0.4 mg PO DAILY@1730 #30 cap Prescription Printed Melatonin 6 mg PO QHS #60 tab Prescription Printed Amlodipine [Norvasc] 10 mg PO QHS #30 tab Prescription Printed Clopidogrel Bisulfate [Plavix] 75 mg PO DAILY #30 tab Prescription Printed Prednisone 5 mg PO DAILY #30 tablet Prednisone See Taper PO DAILY #70 tablet Senna/Docusate Sodium [Senokot-S] 1 tab PO DAILY #30 tab Prescription Printed Levothyroxine [Synthroid] 50 mcg PO DAILY@0600 #30 tab Prescription Printed Cholecalciferol (Vitamin D3) [Vitamin D3] 2,000 unit PO QHS #30 cap Prescription Printed Ondansetron [Zofran Odt] 4 mg PO Q6H PRN PRN #10 tab PRN Reason: NAUSEA Prescription Printed Sertraline HCl [Zoloft] 50 mg PO DAILY #30 tab Prescription Printed Primary Care Physician: Kevin Sutton MD [Primary Care Provider] - Test Results: Test results from this visit will be discussed in further detail at your follow- up appointment, if applicable. Please Follow Up With: [facility] When: Saturday Please Follow Up With: Laron Sutton's PA When: Saturday Please Follow Up With: Kamran Can MD Proposed Discharge Date: 08/05/20
--- NOTE | 2020-08-04 12:52 | PCM.DC.SUM ---
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 PNA - resolved acute exacerbation of chronic hypoxic respiratory failure Hyponatremia Metabolic encephalopathy-resolved with improvement in sodium levels Acute delirium secondary to high-dose steroids-resolved Acute adrenal insufficiency secondary to tapering of steroids too quickly Epistaxis-resolved Drug-induced hyperglycemia secondary to high-dose steroids-resolved Unintentional weight loss due to increased energy expenditure due to increased work of breathing Orthostatic hypotension-resolved Urine retention-resolved TIA's with aphasia and confusion lasting 30-45 minutes while on Rehab - Secondary Discharge Diagnosis Chronic Problems: Chronic Problems BPH (benign prostatic hyperplasia) (Chronic) Anxiety and depression (Chronic) Insomnia (Chronic) Presbycusis (Chronic) Chronic hypoxemic respiratory failure (Chronic) on high flow oxygen Mild aortic stenosis (Chronic) Moderate pulmonary arterial systolic hypertension (Chronic) PA systolic recently estimated at 50 Hypothyroidism (Chronic) Hyponatremia (Chronic) - mild Hyperlipidemia (Chronic) Coronary artery disease (Chronic) Status post stents. Hypertension (Chronic) Idiopathic Pulmonary fibrosis (Chronic) follows up with Dr. Kirti Miguel at [facility] Osteoporosis - on Prolia Chronic steroid use Hospital Course and Treatment Imaging Results: Clinical Impression(s) from Imaging Studies Chest X-Ray 07/20/20 09:20 IMPRESSION: Improved aeration although there is evidence of a scarring at the lung bases with areas of confluence. Electronically Signed: Michael Scherer, at 13:04 EDT , Service support , Laboratory Tests 08/04/20 08/01/20 07/29/20 Range/Units 05:26 05:10 05:38 WBC (4.4-11.0) K/mm3 RBC (4.6-6.2) M/mm3 Hgb (13.0-16.5) g/dL Hct (40-54) % MCV (80-94) fL MCH (27.0-32.0) pg MCHC (32-36) g/dL RDW Std Deviation (35.1-43.9) fl RDW Coeff of Araseli (11.6-14.6) % Plt Count (150-450) K/mm3 MPV (6.2-12.0) fl Immature Gran % (Auto) (0.0-0.9) % Neut % (Auto) (47-70) % Lymph % (Auto) (19-41) % Gem % (Auto) (0-10) % Eos % (Auto) (0-5) % Baso % (Auto) (0-1) % Absolute Neuts (auto) (2.0-7.7) X10^3/uL Absolute Lymphs (auto) (0.83-4.51) X10^3/uL Nucleated RBC % (0-5) % PT (11.7-14.9) SECONDS INR APTT (24.1-36.2) Seconds Sodium 133 L 133 L (136-145) mmol/L Potassium 5.2 H 4.1 (3.5-5.1) mmol/L Chloride 97 L 97 L (98-107) mmol/L Carbon Dioxide 32.0 32.0 (21.0-32.0) mmol/L Anion Gap 4 L 4 L (5-15) BUN 22 H 17 (7-18) mg/dL Creatinine 1.10 1.09 (0.70-1.30) mg/dL Estim Creat Clear Calc 59.39 58.80 ml/min Est GFR (MDRD) Af Amer 84 85 (>60) mL/min Est GFR (MDRD) Non-Af 69 70 (>60) mL/min BUN/Creatinine Ratio 20.0 15.6 (10-20) RATIO Glucose 94 95 (74-106) mg/dL Calcium 8.7 8.9 (8.5-10.1) mg/dL Phosphorus (2.5-4.9) mg/dL Magnesium (1.6-2.6) mg/dL Albumin 2.8 L (3.2-5.0) g/dL TSH (0.358-3.74) uIU/mL Free T4 (0.76-1.46) ng/dL Urine Color (Yellow) Urine Clarity (Clear) Urine pH (5.0 - 8.0) Ur Specific Garland (1.002-1.030) Urine Protein (Negative) mg/dl Urine Glucose (UA) (Normal) mg/dl Urine Ketones (Negative) mg/dl Urine Occult Blood (Negative) /ul Urine Nitrite (Negative) Urine Bilirubin (Negative) mg/dL Urine Urobilinogen (Normal) mg/dl Ur Leukocyte Esterase (Negative) /ul Urine RBC (0-5) /hpf Urine WBC (0-5) /hpf Ur Squamous Epith Cells (0-5) /hpf Urine Bacteria (None Seen) /hpf Urine Mucus (<or=2+) /hpf Ur Random Sodium (Not Establ.) mmol/L Urine Creatinine (NO RANGE EST.) mg/dL 07/29/20 07/27/20 07/27/20 Range/Units 05:38 18:03 15:41 WBC (4.4-11.0) K/mm3 RBC (4.6-6.2) M/mm3 Hgb (13.0-16.5) g/dL Hct (40-54) % MCV (80-94) fL MCH (27.0-32.0) pg MCHC (32-36) g/dL RDW Std Deviation (35.1-43.9) fl RDW Coeff of Araseli (11.6-14.6) % Plt Count (150-450) K/mm3 MPV (6.2-12.0) fl Immature Gran % (Auto) (0.0-0.9) % Neut % (Auto) (47-70) % Lymph % (Auto) (19-41) % Gem % (Auto) (0-10) % Eos % (Auto) (0-5) % Baso % (Auto) (0-1) % Absolute Neuts (auto) (2.0-7.7) X10^3/uL Absolute Lymphs (auto) (0.83-4.51) X10^3/uL Nucleated RBC % (0-5) % PT (11.7-14.9) SECONDS INR APTT (24.1-36.2) Seconds Sodium 131 L 123 L (136-145) mmol/L Potassium 4.1 4.3 (3.5-5.1) mmol/L Chloride 97 L 90 L (98-107) mmol/L Carbon Dioxide 28.0 30.0 (21.0-32.0) mmol/L Anion Gap 6 3 L (5-15) BUN 14 18 (7-18) mg/dL Creatinine 0.86 0.95 (0.70-1.30) mg/dL Estim Creat Clear Calc 80.00 72.42 ml/min Est GFR (MDRD) Af Amer 111 99 (>60) mL/min Est GFR (MDRD) Non-Af 92 82 (>60) mL/min BUN/Creatinine Ratio 16.3 18.9 (10-20) RATIO Glucose 89 107 H (74-106) mg/dL Calcium 8.0 L 8.6 (8.5-10.1) mg/dL Phosphorus (2.5-4.9) mg/dL Magnesium (1.6-2.6) mg/dL Albumin (3.2-5.0) g/dL TSH (0.358-3.74) uIU/mL Free T4 (0.76-1.46) ng/dL Urine Color Yellow (Yellow) Urine Clarity Clear (Clear) Urine pH 6.5 (5.0 - 8.0) Ur Specific Garland 1.010 (1.002-1.030) Urine Protein Negative (Negative) mg/dl Urine Glucose (UA) Normal (Normal) mg/dl Urine Ketones Negative (Negative) mg/dl Urine Occult Blood Negative (Negative) /ul Urine Nitrite Negative (Negative) Urine Bilirubin Negative (Negative) mg/dL Urine Urobilinogen Normal (Normal) mg/dl Ur Leukocyte Esterase Negative (Negative) /ul Urine RBC 0 SEEN (0-5) /hpf Urine WBC 0 SEEN (0-5) /hpf Ur Squamous Epith Cells 0 SEEN (0-5) /hpf Urine Bacteria 0 SEEN (None Seen) /hpf Urine Mucus 0 SEEN (<or=2+) /hpf Ur Random Sodium (Not Establ.) mmol/L Urine Creatinine (NO RANGE EST.) mg/dL 07/27/20 07/25/20 07/22/20 Range/Units 15:41 05:29 05:26 WBC 10.6 (4.4-11.0) K/mm3 RBC 4.10 L (4.6-6.2) M/mm3 Hgb 12.9 L (13.0-16.5) g/dL Hct 38.2 L (40-54) % MCV 93.2 (80-94) fL MCH 31.5 (27.0-32.0) pg MCHC 33.8 (32-36) g/dL RDW Std Deviation 42.7 (35.1-43.9) fl RDW Coeff of Araseli 12.4 (11.6-14.6) % Plt Count 375 (150-450) K/mm3 MPV 9.1 (6.2-12.0) fl Immature Gran % (Auto) 0.900 (0.0-0.9) % Neut % (Auto) 81.5 H (47-70) % Lymph % (Auto) 9.9 L (19-41) % Gem % (Auto) 6.6 (0-10) % Eos % (Auto) 0.8 (0-5) % Baso % (Auto) 0.3 (0-1) % Absolute Neuts (auto) 8.6 H (2.0-7.7) X10^3/uL Absolute Lymphs (auto) 1.05 (0.83-4.51) X10^3/uL Nucleated RBC % 0 (0-5) % PT (11.7-14.9) SECONDS INR APTT (24.1-36.2) Seconds Sodium 132 L 132 L (136-145) mmol/L Potassium 4.2 4.4 (3.5-5.1) mmol/L Chloride 97 L 95 L (98-107) mmol/L Carbon Dioxide 31.0 31.0 (21.0-32.0) mmol/L Anion Gap 4 L 6 (5-15) BUN 16 19 H (7-18) mg/dL Creatinine 1.08 1.29 (0.70-1.30) mg/dL Estim Creat Clear Calc 61.65 55.06 ml/min Est GFR (MDRD) Af Amer 85 70 (>60) mL/min Est GFR (MDRD) Non-Af 71 58 L (>60) mL/min BUN/Creatinine Ratio 14.8 14.7 (10-20) RATIO Glucose 100 85 (74-106) mg/dL Calcium 8.6 8.5 (8.5-10.1) mg/dL Phosphorus (2.5-4.9) mg/dL Magnesium (1.6-2.6) mg/dL Albumin (3.2-5.0) g/dL TSH (0.358-3.74) uIU/mL Free T4 (0.76-1.46) ng/dL Urine Color (Yellow) Urine Clarity (Clear) Urine pH (5.0 - 8.0) Ur Specific Garland (1.002-1.030) Urine Protein (Negative) mg/dl Urine Glucose (UA) (Normal) mg/dl Urine Ketones (Negative) mg/dl Urine Occult Blood (Negative) /ul Urine Nitrite (Negative) Urine Bilirubin (Negative) mg/dL Urine Urobilinogen (Normal) mg/dl Ur Leukocyte Esterase (Negative) /ul Urine RBC (0-5) /hpf Urine WBC (0-5) /hpf Ur Squamous Epith Cells (0-5) /hpf Urine Bacteria (None Seen) /hpf Urine Mucus (<or=2+) /hpf Ur Random Sodium (Not Establ.) mmol/L Urine Creatinine (NO RANGE EST.) mg/dL 07/20/20 07/20/20 07/20/20 Range/Units 17:20 17:20 05:30 WBC (4.4-11.0) K/mm3 RBC (4.6-6.2) M/mm3 Hgb (13.0-16.5) g/dL Hct (40-54) % MCV (80-94) fL MCH (27.0-32.0) pg MCHC (32-36) g/dL RDW Std Deviation (35.1-43.9) fl RDW Coeff of Araseli (11.6-14.6) % Plt Count (150-450) K/mm3 MPV (6.2-12.0) fl Immature Gran % (Auto) (0.0-0.9) % Neut % (Auto) (47-70) % Lymph % (Auto) (19-41) % Gem % (Auto) (0-10) % Eos % (Auto) (0-5) % Baso % (Auto) (0-1) % Absolute Neuts (auto) (2.0-7.7) X10^3/uL Absolute Lymphs (auto) (0.83-4.51) X10^3/uL Nucleated RBC % (0-5) % PT (11.7-14.9) SECONDS INR APTT (24.1-36.2) Seconds Sodium 129 L (136-145) mmol/L Potassium 3.7 (3.5-5.1) mmol/L Chloride 93 L (98-107) mmol/L Carbon Dioxide 30.0 (21.0-32.0) mmol/L Anion Gap 6 (5-15) BUN 25 H (7-18) mg/dL Creatinine 1.02 (0.70-1.30) mg/dL Estim Creat Clear Calc 69.63 ml/min Est GFR (MDRD) Af Amer 91 (>60) mL/min Est GFR (MDRD) Non-Af 75 (>60) mL/min BUN/Creatinine Ratio 24.5 H (10-20) RATIO Glucose 93 (74-106) mg/dL Calcium 8.5 (8.5-10.1) mg/dL Phosphorus 2.9 (2.5-4.9) mg/dL Magnesium 2.2 (1.6-2.6) mg/dL Albumin (3.2-5.0) g/dL TSH (0.358-3.74) uIU/mL Free T4 (0.76-1.46) ng/dL Urine Color Yellow (Yellow) Urine Clarity Clear (Clear) Urine pH 6.0 (5.0 - 8.0) Ur Specific Garland 1.015 (1.002-1.030) Urine Protein 15 H (Negative) mg/dl Urine Glucose (UA) Normal (Normal) mg/dl Urine Ketones Negative (Negative) mg/dl Urine Occult Blood Negative (Negative) /ul Urine Nitrite Negative (Negative) Urine Bilirubin Negative (Negative) mg/dL Urine Urobilinogen Normal (Normal) mg/dl Ur Leukocyte Esterase Negative (Negative) /ul Urine RBC 0 SEEN (0-5) /hpf Urine WBC 0 SEEN (0-5) /hpf Ur Squamous Epith Cells 0 SEEN (0-5) /hpf Urine Bacteria 0 SEEN (None Seen) /hpf Urine Mucus 0 SEEN (<or=2+) /hpf Ur Random Sodium 73 (Not Establ.) mmol/L Urine Creatinine 57.40 (NO RANGE EST.) mg/dL 07/20/20 07/20/20 07/19/20 Range/Units 05:30 05:30 07:50 WBC 14.4 H (4.4-11.0) K/mm3 RBC 4.15 L (4.6-6.2) M/mm3 Hgb 13.3 (13.0-16.5) g/dL Hct 38.6 L (40-54) % MCV 93.0 (80-94) fL MCH 32.0 (27.0-32.0) pg MCHC 34.5 (32-36) g/dL RDW Std Deviation 41.2 (35.1-43.9) fl RDW Coeff of Araseli 12.2 (11.6-14.6) % Plt Count 368 (150-450) K/mm3 MPV 9.3 (6.2-12.0) fl Immature Gran % (Auto) (0.0-0.9) % Neut % (Auto) (47-70) % Lymph % (Auto) (19-41) % Gem % (Auto) (0-10) % Eos % (Auto) (0-5) % Baso % (Auto) (0-1) % Absolute Neuts (auto) (2.0-7.7) X10^3/uL Absolute Lymphs (auto) (0.83-4.51) X10^3/uL Nucleated RBC % (0-5) % PT 13.2 (11.7-14.9) SECONDS INR 1.1 APTT 24.5 (24.1-36.2) Seconds Sodium (136-145) mmol/L Potassium (3.5-5.1) mmol/L Chloride (98-107) mmol/L Carbon Dioxide (21.0-32.0) mmol/L Anion Gap (5-15) BUN (7-18) mg/dL Creatinine (0.70-1.30) mg/dL Estim Creat Clear Calc ml/min Est GFR (MDRD) Af Amer (>60) mL/min Est GFR (MDRD) Non-Af (>60) mL/min BUN/Creatinine Ratio (10-20) RATIO Glucose (74-106) mg/dL Calcium (8.5-10.1) mg/dL Phosphorus 2.6 (2.5-4.9) mg/dL Magnesium 2.3 (1.6-2.6) mg/dL Albumin (3.2-5.0) g/dL TSH 3.66 (0.358-3.74) uIU/mL Free T4 1.01 (0.76-1.46) ng/dL Urine Color (Yellow) Urine Clarity (Clear) Urine pH (5.0 - 8.0) Ur Specific Garland (1.002-1.030) Urine Protein (Negative) mg/dl Urine Glucose (UA) (Normal) mg/dl Urine Ketones (Negative) mg/dl Urine Occult Blood (Negative) /ul Urine Nitrite (Negative) Urine Bilirubin (Negative) mg/dL Urine Urobilinogen (Normal) mg/dl Ur Leukocyte Esterase (Negative) /ul Urine RBC (0-5) /hpf Urine WBC (0-5) /hpf Ur Squamous Epith Cells (0-5) /hpf Urine Bacteria (None Seen) /hpf Urine Mucus (<or=2+) /hpf Ur Random Sodium (Not Establ.) mmol/L Urine Creatinine (NO RANGE EST.) mg/dL Microbiology 08/03/20 11:56 Mucosa - Nose - Final -Covid antigen-negative 07/25/20 14:00 Mucosa - Nasopharyngeal - Final -Covid antigen-negative 07/18/20 20:55 Stool Stool Occult Blood (TYLER) - Final -negative Dr. Dez Huynh DO - pulmonary medicine Operations: None Procedures: None Summary of Care Provided: Jet White is a 75 year old M with a past medical history of hyperlipidemia, coronary artery disease with history of PTCA/KIMMY, hypertension, pulmonary fibrosis, hypothyroidism, chronic steroid dependence with 5 mg of prednisone daily and chronic hypoxic respiratory failure who presented to the emergency department at [facility] on 07/13/2020 complaining of increased shortness of breath associated with a dry cough and increased oxygen requirement which had gradually progressed over the preceding 2 weeks. He was diagnosed with pulmonary fibrosis in 2013 and wears 6 to 10 L of oxygen at home. Chest x-ray in the emergency department was reported as increased interstitial markings throughout with a confluence in the left base possibly secondary to pneumonia. Pulse ox was 99% on 6 L. The white blood cell count was elevated at 11.2 with a left shift. Temp was 99.5 and the heart rate was 109 in the emergency department. Lactic acid was 1.2. He was diagnosed with sepsis secondary to pneumonia and admitted to the hospital. He was started on intravenous Zosyn and sputum culture and blood cultures were ordered. Sputum was never obtained and the blood cultures had no growth. Respiratory panel was negative. In addition to Zosyn he received high dose intravenous Solu-Medrol, inhaled bronchodilators and was prescribed incentive spirometry. While in the hospital on 07/17/2020 he had altered mental status and a stroke alert was called. He was aphasic and confused. Stat CT was negative for hemorrhagic or ischemic infarction. [facility] [place] consulted and since the patient was outside the 4.5-hour window for TPA it was not given. He improved significantly and was no longer aphasic at presentation to the rehab unit but he had persistent higher level cognitive dysfunction. 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 MRI was negative for infarction. He was placed on aspirin, Plavix and Pravastatin 20 mg p.o. nightly. Total cholesterol was 167 with a triglyceride level of 86. LDL was 84 and his HDL was 66. TSH and T4 were within normal limits. He was transferred to the acute inpatient rehab unit for 3 hours of therapy daily to restore him at or near his prior level of function. Jet is not and he lives by himself. He has no children and his brother Adi is his POA. At presentation to the rehab unit he had no rhonchi and no wheezing. He also had no wheezing in the emergency room at admission to the acute hospital stay. He had coarse Rales in both bases and occasional pursed lip breathing. He was mildly tachypneic at rest but had no conversational dyspnea. The heart had a regular rate and rhythm with no murmur, no rub and no gallop. Heart sounds are somewhat distant and the PMI is displaced inferior and medial. He had no peripheral edema. He was quite anxious and confused and he told me he had not slept in 3 nights. He appeared very fatigued. Since he had not been wheezing and he told me he did not take aerosol treatments at home the high dose steroids were decreased from 40 mg daily to 5 mg daily which is his baseline daily dose. Consult was obtained with Dr. Dez Huynh from pulmonary medicine who agreed with decreasing the prednisone from 40 mg to 5 mg daily and making the aerosols PRN for wheezing only. The delirium resolved with decrease in the Prednisone to 5 mg daily however, the sodium dropped to 123 after a few days and this is presumed to be due to acute adrenal insufficiency. He was given IV NS and Prednisone was increased to 5 mg BID and the sodium has been stable at 133 since then. Am cortisol, TSH and T4 were all WNL and the FENA was 1% which is not consistent with dehydration. Despite resolution of acute delirium due to high dose steroids and Levaquin he remained very anxious. He was started on Buspar and the dose has gradually increased to 10 mg TID. He has had no adverse drug reactions. Even though the anxiety was better he continued to have problems sleeping and he was started on Melatonin.....with some improvement. Trazodone was added to the Melatonin and he is sleeping much better. He is also depressed bout his loss of independence and he is worried about what his life is going to be looking forward. He was started on sertraline which he has tolerated well. He has been doing much better [facility] therapy since the anxiety has been controlled. His endurance has improved although he still frequently requires rest breaks with activity. The pulse ox at rest on 6 LPM is 94 to 98%. We increased the oxygen to 8 L/min with exercise and this has improved his performance in therapy. Jet made the decision that it was time to change his living situation so that he could have more assistance with ADL's and he chose to move to [facility] living. We discussed a palliative care consult to help manage his sx air hunger, anxiety, depression, insomnia and to help prevent frequent hospital admissions. Jet was agreeable and will meet with palliative care once he is transferred to [place]. Jet has had weight loss since being admitted to the hospital in June and this is likely due to the increased energy expenditure due to increased work of breathing. He gets SOB with large meals and this affects his ability to exercise. He was changed to 4-5 small meals a day. He was also encouraged to eat more fats and protein and less carbs to help keep his weight up and decrease the work of breathing. He was changed from a cardiac diet to a regular diet. While on rehab Jet had a TIA and it lasted about 45 minutes. He was alert but, had sudden onset of confusion and expressive aphasia. Very similar to the sx he had on PCU. ASA and Plavix were continued and he was changed from Pravastatin 20 mg to Atorvastatin 40 mg daily. He was encouraged to stay well hydrated. At the time of his discharge he is calm and doing well. He has some trepidation about leaving rehab and going to [place] and he worried he will not get the assistance he needs. I think he would benefit from psychotherapy in conjunction with the Sertraline and Buspar. He will start tapering the Prednisone by 1 mg every week until he is back to 5 mg daily in the AM. I would check a BMP weekly to ensure his sodium is staying above 130. He will need a liver panel and a lipid panel in 6 weeks. I also recommend he follow up with neurology for CVA and TIA's. For now would continue the Dual antiplatelet agents. Hemoccult stool was negative while in rehab. ROS: Constitutional: Reports: Weakness but this has been improving.. Denies: Chills, Fever, + wt loss recently Eyes: Denies: Vision Change HEENT: Reports: Difficulty Swallowing - occasional difficulty swallowing and he associates this with a dry mouth.. Denies: Head Aches, Nasal Congestion, Sinus Congestion, Sinus Drainage, Sore Throat Cardiovascular: Reports: Chest Tightness when anxious....has resolved with control of the anxiety, Light Headedness - when he stands up - resolved. Denies: Chest Pain, Edema, Palpitations, Syncope Respiratory: Reports: Cough - dry and it is much better than it was at admission. Denies: Shortness of breath at rest, Sputum production, +REYNOLDS but the exercise tolerance is improving Gastrointestinal: Denies: Abdominal Pain, Constipation, Diarrhea, Nausea, Vomiting Genitourinary: Reports: Incontinence - occasional......this is new - he did not have this at home, Nocturia - 2-3 times a night...started on Flomax in the hospital for urine retention, Retention. Denies: Dysuria Musculoskeletal: Denies: Joint Pain, Joint Tenderness, Neck Pain Skin: Reports: Dryness. Denies: Jaundice, Rash, Wounds Neurological: Reports: - - he had aphasia in the hospital and aphasia both receptive and expressive that lasted < 24H but longer than 12 hours. Denies: Focal weakness, Headaches, Numbness, Tingling, Seizures Psychiatric: Denies: Anxiety, Depression, Homicidal Ideations, Suicidal Ideations Endocrine: Denies: Change in Body Habitus, Polydipsia Hematologic/ Lymphatic: Denies: Easy Bruising, Easy Bleeding, Hx of blood clot - Physical Exam Vitals/I&O's: Vital Signs Temp Pulse Resp BP Pulse Ox 97.9 F 76 20 H 125/56 H 98 08/04/20 07:48 08/04/20 07:48 08/04/20 07:48 08/04/20 07:48 08/04/20 09:50 Oxygen Flow Rate (L/min) 6 Oxygen Delivery Method Nasal Cannula Weight: 162 lb 14.746 oz Body Mass Index (BMI) 23.4 Orthostatic Vital Signs Start: 07/19/20 06:08 Freq: Status: Active Protocol: Activity Type Activity Date Activity User E-Sign Co-Sign Detail Recorded Client Recorded Date Recorded By Document 07/26/20 05:26 CAK [id number] 07/26/20 05:28 CAK 07/26/20 05:26 Orthostatic Vitals Standing -Blood Pressure (90/60-120/80 mm Hg) 138/77 H -Extremity Use Left Arm -Pulse Rate (60-100 beats/min) 103 H Sitting -Blood Pressure (90/60-120/80 mm Hg) 134/80 H -Extremity Use Left Arm -Pulse Rate (60-100 beats/min) 80 Lying -Blood Pressure (90/60-120/80 mm Hg) 140/75 H -Extremity Use Left Arm -Pulse Rate (60-100 beats/min) 74 Intake and Output for Last 24 Hours 08/02/20 08/03/20 08/04/20 23:59 23:59 23:59 Intake Total 2180 / 2180 1600 / 1600 500 / 500 Output Total 2625 / 2625 1900 / 1900 300 / 300 Balance -445 / -445 -300 / -300 200 / 200 General: Alert, Oriented x3, Cooperative, No apparent distress HEENT: Atraumatic, PERRLA Oral: Moist Mucosa, No Gingival or Mucosal Lesions/ Ulcerations Neck: Supple, Negative Carotid Bruits, No Nodes, Trachea Midline Lungs: Diminished, Rales - Coarse Rales in both bases, minimal, - - No conversational dyspnea today and he is not tachypneic at rest. No pursed lip breathing at rest. Cardiovascular: Regular rate, Regular Rhythm, Normal S1, Normal S2, No murmurs, No rub noted, No Gallop Abdomen: Bowel Sounds Present, Soft, Non Tender, Non-Distended Extremities: No clubbing - Mild, No cyanosis, No edema, No Calf Tenderness Skin: No rashes, No breakdown Neurological: Cranial nerves II-XII grossly intact, Neuro grossly intact Psych/Mental Status: Appropriate, Flat Affect Microbiology Past 72 Hours 08/03/20 11:56 Mucosa - Nose - Final Laboratory Results 08/04/20 05:26: Sodium 133 L, Potassium 5.2 H, Chloride 97 L, Carbon Dioxide 32.0, Anion Gap 4 L, BUN 22 H, Creatinine 1.10, Estim Creat Clear Calc 59.39, Est GFR (MDRD) Af Amer 84, Est GFR (MDRD) Non-Af 69, BUN/Creatinine Ratio 20.0, Glucose 94, Calcium 8.7 Current Medications Acetaminophen (Acetaminophen 325 Mg Tablet) 650 mg PO Q6H PRN PRN PRN Reason: HEADACHE Last Admin: 07/27/20 17:34 Dose: 650 mg Documented by: Albuterol/Ipratropium (Ipratropium/Albuterol Sulfate 3 Ml Ampul.Neb) 3 ml INHALATION Q6H.RT PRN PRN Reason: Wheezing or SOB Amlodipine Besylate (Amlodipine 10 Mg Tablet) 10 mg PO QHS [facility] Last Admin: 08/03/20 21:52 Dose: 10 mg Documented by: Aspirin (Aspirin E.C. 81 Mg Tablet) 81 mg PO QHS [facility] Last Admin: 08/03/20 21:51 Dose: 81 mg Documented by: Bisacodyl (Bisacodyl 10 Mg Suppository) 10 mg RECTAL .PRN X 1 PRN PRN Reason: Constipation Buspirone HCl (Buspirone 5 Mg Tablet) 10 mg PO TID [facility] Last Admin: 08/04/20 06:47 Dose: 10 mg Documented by: Calamine/Phenol (Menthol/Lanolin/Calamine/Znox 113 Gm Tube) 1 applic TOPICAL TID [facility]; Protocol Last Admin: 08/04/20 06:50 Dose: 1 applicatio Documented by: Calcium/Vitamin D (Calcium Carb/Vitamin D 1 Tablet Tablet) [facility] Last Admin: 08/04/20 07:35 Dose: 1 tablet Documented by: Carvedilol (Carvedilol 6.25 Mg Tablet) 6.25 mg PO BID [facility] Last Admin: 08/04/20 07:35 Dose: 6.25 mg Documented by: Cholecalciferol (Cholecalciferol (Vit D3) 1,000 Unit (25mcg)) 2,000 unit PO QHS [facility] Last Admin: 08/03/20 21:52 Dose: 2,000 unit Documented by: Clopidogrel Bisulfate (Clopidogrel Bisulfate 75 Mg Tablet) 75 mg PO DAILY [facility] Last Admin: 08/04/20 07:36 Dose: 75 mg Documented by: Emollient Ointment (Emollient Combination No.72 500 Ml Lotion) 1 applic TOPICAL BID [facility]; Protocol Last Admin: 08/04/20 07:35 Dose: Not Given Documented by: Fludrocortisone Acetate (Fludrocortisone Acetate 0.1 Mg Tablet) 0.05 mg PO DAILY@0800 [facility] Last Admin: 08/04/20 07:34 Dose: 0.05 mg Documented by: Levothyroxine Sodium (Levothyroxine 50 Mcg Tablet) 50 mcg PO DAILY@0600 [facility] Last Admin: 08/04/20 06:47 Dose: 50 mcg Documented by: Magnesium Hydroxide (Magnesium Hydroxide 30 Ml Udc) 30 ml PO .PRN X 1 PRN PRN Reason: Constipation Melatonin (Melatonin 3 Mg Tablet) 6 mg PO QHS [facility] Last Admin: 08/03/20 21:51 Dose: 6 mg Documented by: Ondansetron HCl (Ondansetron Odt 4 Mg Tablet) 4 mg PO Q6H PRN PRN PRN Reason: NAUSEA Last Admin: 07/19/20 13:16 Dose: 4 mg Documented by: Pravastatin Sodium (Pravastatin 20 Mg Tablet) 20 mg PO QHS [facility] Last Admin: 08/03/20 21:52 Dose: 20 mg Documented by: Prednisone (Prednisone 5 Mg Tablet) 5 mg PO 0800,1500 [facility] Last Admin: 08/04/20 07:35 Dose: 5 mg Documented by: Senna/Docusate Sodium (Senna/Docusate Sodium 1 Tablet) 1 tablet PO DAILY [facility] Last Admin: 08/04/20 07:39 Dose: 1 tablet Documented by: Sertraline HCl (Sertraline 50 Mg Tablet) 50 mg PO DAILY [facility] Last Admin: 08/04/20 07:36 Dose: 50 mg Documented by: Sodium Chloride (0.9% Saline Lock 10 Ml Syringe) 10 - 40 ml IV UD PRN PRN Reason: SALINE FLUSH Last Admin: 08/01/20 07:10 Dose: 10 ml Documented by: Sodium Chloride (Sodium Chloride 0.65% 1 [place] Arcadia.Btl) 1 spray NASAL TID [facility] Last Admin: 08/04/20 06:47 Dose: 1 spray Documented by: Tamsulosin HCl (Tamsulosin Hcl 0.4 Mg Capsule) 0.4 mg PO DAILY@1730 [facility] Last Admin: 08/03/20 17:36 Dose: 0.4 mg Documented by: Trazodone HCl (Trazodone 50 Mg Tablet) 50 mg PO QHS [facility] Last Admin: 08/03/20 21:51 Dose: 50 mg Documented by: Discharge Activity: May Shower, Use Walker Weight Bearing Status: Full weight bearing Additional Activity Instructions:: He needs to rest between exercise activities. Exercise tolerance has increased while in acute rehab. When he is exercising the O2 should be turned up to 8 LPM. When at rest he should be on 6 LPM. Call your doctor if you observe: Fever of 101 or Higher, Inability to urinate, Inability to have a bowel movement, Shortness of breath - He is always SOB, kristie with excercise, but if he has SOB outside his baseline notify his physician., Dizziness, Fainting spells, Swelling in the ankles, Chest pain, Increased palpitations (irregular heartbeat), Calf discomfort, Uncontrolled pain Home Medications: Medications to take at Discharge Pirfenidone [Esbriet] 801 mg PO TID 07/03/16 Aspirin E.C. [Ecotrin] 81 mg PO QHS 08/25/18 Calcium Citrate/Vitamin D3 [Citracal-D3 200Mg-250 Unit Tab] 1 tab PO DAILY 08/25/18 Prednisone 5 mg PO DAILY 07/13/20 Senna/Docusate Sodium [Senokot-S] 2 tab PO BID PRN PRN tab 07/15/20 Acetaminophen [Tylenol Tablet] 650 mg PO Q6H PRN PRN tab 07/18/20 Fluticasone 0.05% [Flonase Nasal [place]] 2 spray NASAL DAILY 07/18/20 Prednisone 10 mg PO DAILY 07/18/20 levoFLOXacin tablet [Levaquin tablet] 750 mg PO DAILY 07/18/20 Amlodipine [Norvasc] 10 mg PO QHS #30 tab 08/04/20 Atorvastatin Calcium 40 mg PO QHS #30 tab 08/04/20 Bisacodyl [Dulcolax] 10 mg RECTAL .PRN X 1 PRN suppos. 08/04/20 Calcium Carb/Vitamin D [Os-Bowen 500MG + D] 1 tab PO DAILYCM tab 08/04/20 Carvedilol [Coreg (Beta Manan)] 6.25 mg PO BID #60 tab 08/04/20 Cholecalciferol (Vitamin D3) [Vitamin D3] 2,000 unit PO QHS #30 cap 08/04/20 Clopidogrel Bisulfate [Plavix] 75 mg PO DAILY #30 tab 08/04/20 Emollient Combination No.72 [Eucerin Intensive Repair] 1 applic TOPICAL BID lotion 08/04/20 Levothyroxine [Synthroid] 50 mcg PO DAILY@0600 #30 tab 08/04/20 Magnesium Hydroxide [Milk Of Magnesia] 30 ml PO .PRN X 1 PRN udc 08/04/20 Melatonin 6 mg PO QHS #60 tab 08/04/20 Menthol/Lanolin/Calamine/Znox [Calmoseptine Ointment] 1 applic TOPICAL TID tube 08/04/20 Ondansetron [Zofran Odt] 4 mg PO Q6H PRN PRN #10 tab 08/04/20 Prednisone 5 mg PO DAILY #30 tab 08/04/20 Prednisone See Taper PO DAILY #70 tab 08/04/20 Senna/Docusate Sodium [Senokot-S] 1 tab PO DAILY #30 tab 08/04/20 Sertraline HCl [Zoloft] 50 mg PO DAILY #30 tab 08/04/20 Sodium Chloride 0.65% [Schuyler Nasal [place]] 1 spray NASAL TID spray.btl 08/04/20 Tamsulosin HCl [Flomax] 0.4 mg PO DAILY@1730 #30 cap 08/04/20 busPIRone [Buspar] 10 mg PO TID tab 08/04/20 traZODone [Desyrel] 50 mg PO QHS #30 tab 08/04/20 Following Prescriptions Were Given to Patient: Atorvastatin Calcium 40 mg PO QHS #30 tab Prescription Printed Carvedilol [Coreg (Beta Manan)] 6.25 mg PO BID #60 tab Prescription Printed traZODone [Desyrel] 50 mg PO QHS #30 tab Prescription Printed Tamsulosin HCl [Flomax] 0.4 mg PO DAILY@1730 #30 cap Prescription Printed Melatonin 6 mg PO QHS #60 tab Prescription Printed Amlodipine [Norvasc] 10 mg PO QHS #30 tab Prescription Printed Clopidogrel Bisulfate [Plavix] 75 mg PO DAILY #30 tab Prescription Printed Prednisone 5 mg PO DAILY #30 tab Prednisone See Taper PO DAILY #70 tab Senna/Docusate Sodium [Senokot-S] 1 tab PO DAILY #30 tab Prescription Printed Levothyroxine [Synthroid] 50 mcg PO DAILY@0600 #30 tab Prescription Printed Cholecalciferol (Vitamin D3) [Vitamin D3] 2,000 unit PO QHS #30 cap Prescription Printed Ondansetron [Zofran Odt] 4 mg PO Q6H PRN PRN #10 tab PRN Reason: NAUSEA Prescription Printed Sertraline HCl [Zoloft] 50 mg PO DAILY #30 tab Prescription Printed Primary Care Physician: Kevin Sutton MD [Primary Care Provider] - Please Follow Up With: [facility] When: Saturday Please Follow Up With: Laron Bakers PA When: Saturday Please Follow Up With: Kamran Can MD Disposition: Asstd Living/Non-Skill [facility] Minutes spent on discharge:: 50 Patient Condition:: Stable Medical Necessity - Tobacco Use Smoking Status: Never smoker Tobacco Use: Non-smoker Meaningful Use Info Meaningful Use Diagnoses (Choose all that apply): Ischemic CVA - CVA Therapy Assessed for PT,OT and/or ST?: Yes - Ischemic Stroke Antithrombotic order at d/c?: Yes Dx of Atrial fib/flutter?: No Anticoagulant at discharge?: No Reason anticoagulant not ordered: Treatment not Indicated Statins at discharge?: Yes Primary Dx Acute Ischemic CVA?: Yes IV tPA ordered during stay?: No Reason IV t-PA not ordered: Treatment not Indicated Inpatient E&M: [id number] Disch Hosp
[2020-08-04] MEDS: Tamsulosin HCl 0.4 MG Capsule PO (17:06)
[2020-08-04 19:54] VITALS: BP 162/83; PULSE 81; RESP 20; TEMP 36.4; O2SAT 95
[2020-08-04] MEDS: traZODone 50 MG Tablet PO (22:06)
[2020-08-04] MEDS: Aspirin E.C. 81 MG Tablet PO (22:06)
[2020-08-04] MEDS: Pravastatin 20 MG Tablet PO (22:06)
[2020-08-04] MEDS: MELATONIN 3 MG TABLET 6 MG PO (22:06)
[2020-08-04] MEDS: amLODIPine 10 MG Tablet PO (22:06)
[2020-08-05] MEDS: Sodium Chloride 0.65% 1 SPRAY SPRAY.BTL NASAL ×2 (05:52→13:28)
[2020-08-05] MEDS: busPIRone 5 MG Tablet 10 MG PO ×2 (05:52→13:16)
[2020-08-05] MEDS: Levothyroxine 50 MCG Tablet PO (05:52)
[2020-08-05 05:57] LABS: Potassium 4.4 mmol/L (3.5-5.1)
[2020-08-05 06:47] VITALS: O2SAT 98
[2020-08-05] MEDS: Calcium Carb/Vitamin D 1 TABLET Tablet PO (07:51)
[2020-08-05] MEDS: predniSONE 5 MG Tablet PO (07:51)
[2020-08-05] MEDS: Clopidogrel Bisulfate 75 MG Tablet PO (07:51)
[2020-08-05] MEDS: Fludrocortisone Acetate 0.1 MG Tablet 0.05 MG PO (07:52)
[2020-08-05] MEDS: Carvedilol 6.25 MG Tablet PO (07:54)
[2020-08-05] MEDS: Sertraline 50 MG Tablet PO (07:54)
[2020-08-05] MEDS: Senna/Docusate Sodium 1 Tablet PO (07:54)
[2020-08-05 08:30] VITALS: BP 143/72; PULSE 73; RESP 20; TEMP 36.4; O2SAT 98
[2020-08-05 14:00] VITALS: BP 143/72; PULSE 73; RESP 20; TEMP 36.4; O2SAT 98
--- NOTE | 2020-08-05 14:00 | NURSING ---
Discharged to [facility] and report provided to that nurse. All DC instruct given and verbalized to patient and he verbalized understanding.
== END 2020-08-05 14:00 | disposition home or self-care (01) | DRG 56 ==
PROVIDERS: Admitting Provider Internal Medicine; PCP Family Medicine; Visit Provider Internal Medicine
DX: I69.320 Aphasia following cerebral infarction (principal); J18.9 Pneumonia, unspecified organism; G93.41 Metabolic encephalopathy; J96.11 Chronic respiratory failure with hypoxia; N39.0 Urinary tract infection, site not specified; F05 Delirium due to known physiological condition; E87.1 Hypo-osmolality and hyponatremia; E27.49 Other adrenocortical insufficiency; G45.9 Transient cerebral ischemic attack, unspecified; R47.01 Aphasia; I69.319 Unspecified symptoms and signs involving cognitive functions following cerebral infarction; I10 Essential (primary) hypertension; E03.9 Hypothyroidism, unspecified; I25.10 Atherosclerotic heart disease of native coronary artery without angina pectoris; E78.5 Hyperlipidemia, unspecified; J84.112 Idiopathic pulmonary fibrosis; T38.0X5A Adverse effect of glucocorticoids and synthetic analogues, initial encounter; R73.9 Hyperglycemia, unspecified; N40.0 Benign prostatic hyperplasia without lower urinary tract symptoms; I27.20 Pulmonary hypertension, unspecified; F41.9 Anxiety disorder, unspecified; R04.0 Epistaxis; Z72.820 Sleep deprivation; H91.10 Presbycusis, unspecified ear; I95.1 Orthostatic hypotension; F32.9 Major depressive disorder, single episode, unspecified; M81.0 Age-related osteoporosis without current pathological fracture; Z79.52 Long term (current) use of systemic steroids
CPT/HCPCS: 36415; 71046; 80048; 81001; 82040; 82274; 82570; 83735; 84100; 84132; 84300; 84439; 84443; 85025; 85027; 85610; 85730; 87426; 92507; 92523; 92526; 92610; 94640; 94667; 94668; 97110; 97116; 97162; 97166; 97530; 97535; 97802; 97803; 99251; J7030; A4216; G0463

== ENCOUNTER → 2020-08-11 05:00 | Outpatient (REF) | payer MEDICARE, BC, SELFPAY ==
[2020-07-18 15:24] VITALS: BMI 23.4
[2020-08-11 09:24] LABS: Anion Gap 10 (5-15); BUN 10 mg/dL (7-18); BUN/Creat Ratio 12.5 RATIO (10-20); Calcium,Total 7.9 mg/dL (8.5-10.1); Chloride 87 mmol/L (98-107); EST Glomerular Filtration Rate 100 mL/min (>60); Est Glom Filt Rate - Afr Amer 121 mL/min (>60); Glucose 91 mg/dL (74-106); Potassium 3.2 mmol/L (3.5-5.1); Sodium Level 122 mmol/L (136-145)
== END ==
PROVIDERS: PCP Family Medicine
DX: Z79.899 Other long term (current) drug therapy (principal)
CPT/HCPCS: 36415; 80048

== ENCOUNTER → 2020-08-19 05:00 | Outpatient (REF) | payer MEDICARE, BC, SELFPAY ==
[2020-07-18 15:24] VITALS: BMI 23.4
[2020-08-19 07:53] LABS: Osmolality, Serum 270 mOsm/KG (280-301)
[2020-08-19 07:54] LABS: Urine Sodium 24 mmol/L (Not Establ.)
[2020-08-19 07:58] LABS: Osmolality, Urine 211 mOsm/KG
[2020-08-19 08:00] LABS: Anion Gap 6 (5-15); BUN 11 mg/dL (7-18); BUN/Creat Ratio 12.7 RATIO (10-20); Calcium,Total 8.2 mg/dL (8.5-10.1); Chloride 93 mmol/L (98-107); Creatinine, Serum 0.86 mg/dL (0.70-1.30); EST Glomerular Filtration Rate 91 mL/min (>60); Est Glom Filt Rate - Afr Amer 110 mL/min (>60); Glucose 94 mg/dL (74-106); Potassium 4.1 mmol/L (3.5-5.1); Sodium Level 128 mmol/L (136-145); Thyroid Stim Hormone (TSH) 3.31 uIU/mL (0.358-3.74)
== END ==
PROVIDERS: PCP Family Medicine
DX: I10 Essential (primary) hypertension (principal); J96.10 Chronic respiratory failure, unspecified whether with hypoxia or hypercapnia; E87.1 Hypo-osmolality and hyponatremia; Z79.899 Other long term (current) drug therapy
CPT/HCPCS: 36415; 80048; 83930; 83935; 84300; 84443

== ENCOUNTER → 2020-08-26 05:00 | Outpatient (REF) | payer MEDICARE, BC, SELFPAY ==
[2020-07-18 15:24] VITALS: BMI 23.4
[2020-08-26 08:29] LABS: Anion Gap 4 (5-15); BUN 13 mg/dL (7-18); Calcium,Total 8.5 mg/dL (8.5-10.1); Chloride 101 mmol/L (98-107); Creatinine, Serum 0.93 mg/dL (0.70-1.30); EST Glomerular Filtration Rate 84 mL/min (>60); Est Glom Filt Rate - Afr Amer 102 mL/min (>60); Glucose 89 mg/dL (74-106); Potassium 4.2 mmol/L (3.5-5.1); Sodium Level 135 mmol/L (136-145)
== END ==
PROVIDERS: PCP Family Medicine
DX: E78.5 Hyperlipidemia, unspecified (principal); E03.9 Hypothyroidism, unspecified; Z79.899 Other long term (current) drug therapy
CPT/HCPCS: 36415; 80048

== ENCOUNTER → 2020-09-28 13:49 | Outpatient (CLI) | payer MEDICARE, BC, SELFPAY ==
[2020-07-18 15:24] VITALS: BMI 23.4
[2020-09-28 13:54] VITALS: BP 127/64; PULSE 78; RESP 16; TEMP 36.2; O2SAT 99; BMI 20.4
[2020-09-28] MEDS: DENOSUMAB 60 MG/ML SQ (14:00)
== END ==
PROVIDERS: PCP Family Medicine; Referring Provider Internal Medicine Endocrinology, Diabetes & Metabolism; Visit Provider Internal Medicine Endocrinology, Diabetes & Metabolism
DX: M81.0 Age-related osteoporosis without current pathological fracture (principal)
CPT/HCPCS: 96372; J0897

== ENCOUNTER → 2021-03-22 13:50 | Outpatient (CLI) | payer MEDICARE, BC, SELFPAY ==
[2020-09-28 13:54] VITALS: BMI 20.4
[2021-03-22 13:58] VITALS: BP 103/67; PULSE 86; RESP 20; TEMP 36.4; O2SAT 97; BMI 20.4
[2021-03-22] MEDS: DENOSUMAB 60 MG/ML SC (14:01)
== END ==
PROVIDERS: PCP Family Medicine; Referring Provider Internal Medicine Endocrinology, Diabetes & Metabolism; Visit Provider Internal Medicine Endocrinology, Diabetes & Metabolism
DX: M81.0 Age-related osteoporosis without current pathological fracture (principal)
CPT/HCPCS: 96372; J0897